=== PATIENT | female | born 1945 | race Two or more races ===

== ENCOUNTER → 2017-03-11 | Outpatient (CLI) | payer MEDICARE ==
[2016-08-31 08:19] VITALS: BP 107/87
[~2017-03-11] MED LIST: ALPR0.254 PO; AMAN100T PO; AMOX1TAB11 PO; BENZ0.5T PO; CELE200C PO; CIPR250T30 PO; DIVA250T PO; GABA-586 PO; GLIP5TAB10 PO; GLYB5TAB3 PO; HYDR-2666 PO; INSU100V13 SQ; LEVO88TA2 PO; LINA5TAB PO; LISI10TA2 PO; METF500T4 PO; MIRT15TA3 PO; NAPR500T3 PO; OFLO5DRO7 AS; PANT40TA5 PO; PIOG30TA20 PO; RISP1TAB3 PO; RISP2TAB3 PO; SITA100T PO; SUCR1TAB PO
[2017-03-11 17:19] LABS: VITAMIN-B12 929 pg/mL (247-911)
[2017-03-11 17:27] LABS: FOLATE > 24.00 ng/ml (3.2-20.0)
== END | disposition home or self-care (01) ==
LOC: LAB 11:09
PROVIDERS: ATTEND Psychiatry & Neurology Neurology with Special Qualifications in Child Neurology
DX: G91.2 (Idiopathic) normal pressure hydrocephalus (principal)
CPT/HCPCS: 36415; 82607; 82746; 84443; 85651

== ENCOUNTER → 2017-04-01 | Outpatient (CLI) | payer MEDICARE ==
[2016-08-31 08:19] VITALS: BP 107/87
[~2017-04-01] MED LIST changes: -LINA5TAB PO; +LINA5TAB4 PO
[2017-04-01 11:31] LABS: BASO % 0 % (0-3); EOS % 4 % (0-3); HEMATOCRIT 26.4 % (36.0-47.0); HEMOGLOBIN 8.8 g/dL (12.0-15.5); LYMPH # 1.8 x10^3/uL (1.0-4.8); LYMPH % 38 % (24-48); MEAN CORPUSCULAR HEMOGLOBIN 31 pg (25-35); MEAN CORPUSCULAR HGB CONC 34 g/dL (31-37); MEAN CORPUSCULAR VOLUME 92 fL (79-100); MONO % 5 % (0-9); NEUT % 52 % (31-73); PLATELET COUNT 173 x10^3/uL (140-400); RED BLOOD COUNT 2.88 x10^6/uL (3.50-5.40); RED CELL DISTRIBUTION WIDTH 15.9 % (11.5-14.5); WHITE BLOOD COUNT 4.7 x10^3/uL (4.0-11.0)
== END | disposition home or self-care (01) ==
LOC: LAB 11:00
PROVIDERS: ATTEND Psychiatry & Neurology Neurology with Special Qualifications in Child Neurology
DX: G91.2 (Idiopathic) normal pressure hydrocephalus (principal)
CPT/HCPCS: 36415; 85027

== ENCOUNTER 2017-08-06 12:10 | Inpatient (IN) | payer MEDICARE ==
[~2017-08-06] VITALS: Ht 154.9 cm; Wt 66.8 kg
[~2017-08-06 12:10] MED LIST changes: -HYDR-2666 PO; +HYDR-2758 PO; -PIOG30TA20 PO; +PIOG30TA41 PO
[2017-08-06] MEDS ORDERED: IV NORMAL SALINE 1000ML BAG 1,000 ML IV SCH (12:54)
[2017-08-06] MEDS ORDERED: LABETALOL 20 MG/4 ML DISP.SYRIN. IVP ONE (13:00)
[2017-08-06] MEDS ORDERED: FUROSEMIDE 20 MG/2 ML VIAL. IV ONE (13:00)
[2017-08-06] MEDS ORDERED: ASPIRIN CHEWABLE 81 MG TABLET. PO ONE (13:00)
--- NOTE | 2017-08-06 13:03 | PHYS DOC ---
Past Medical History Past Medical History: Arthritis, Bipolar, Diabetes-Type II, Hypertension Past Surgical History: Hysterectomy Alcohol Use: None Drug Use: None Adult General Chief Complaint Chief Complaint: CHEST PAIN HPI HPI Patient is a 72 year old female who presents with complaint of chest pain. Patient states that her symptoms started last night. Patient states that she was able to go to sleep, however when she woke up this morning at 10:00 AM she stated that the pain was much worse. Patient states that the pain felt like pressure that resided in the middle of her chest. The patient states currently she is not experiencing pain, however she is complaining of severe dyspnea on exertion. Patient also notes that she has been noting swelling in her lower extremities. The patient states that she takes Lasix and lisinopril at home and has not missed any doses. The patient states she had an appointment with Dr. Jeanette dutton at 1600, however after calling she was instructed to come to the emergency department for evaluation. Patient denies any fever. Patient has had nonproductive cough over the past week. Review of Systems Review of Systems Constitutional: Denies fever or chills [] Eyes: Denies change in visual acuity, redness, or eye pain [] HENT: Denies nasal congestion or sore throat [] Respiratory: Shortness of breath[] Cardiovascular: Chest pain, dyspnea on exertion, edema[] GI: Denies abdominal pain, nausea, vomiting, bloody stools or diarrhea [] : Denies dysuria or hematuria [] Musculoskeletal: Denies back pain or joint pain [] Integument: Denies rash or skin lesions [] Neurologic: Denies headache, focal weakness or sensory changes [] Current Medications Current Medications Current Medications Medications (Trade) Dose Ordered Sig/Angeles Start Time Stop Time Status Last Admin Dose Admin Aspirin (Children'S Aspirin) 324 mg 1X ONCE 08/06/17 13:00 08/06/17 13:01 DC 08/06/17 13:10 324 MG Furosemide (Lasix) 40 mg 1X ONCE 08/06/17 13:00 08/06/17 13:01 DC 08/06/17 13:10 40 MG Labetalol HCl (Normodyne) 20 mg 1X ONCE 08/06/17 13:00 08/06/17 13:01 DC 08/06/17 13:21 20 MG Sodium Chloride 1,000 ml @ 50 mls/hr Q20H 08/06/17 12:54 08/07/17 08:53 08/06/17 13:14 50 MLS/HR Allergies Allergies Allergies Coded Allergies Type Severity Reaction Last Updated Verified No Known Drug Allergies 08/06/17 No Physical Exam Physical Exam Constitutional: Alert, afebrile, appears in mild to moderate discomfort. [] HENT: Normocephalic, atraumatic, bilateral external ears normal, oropharynx moist, no oral exudates, nose normal. [] Eyes: PERRLA, EOMI, conjunctiva normal, no discharge. [] Neck: Normal range of motion, no tenderness, supple, no stridor. [] Cardiovascular:Heart rate regular rhythm, no murmur [] Lungs & Thorax: Mildly restricted air movement bilaterally, no wheezes, fine rales in the bilateral lung bases[] Abdomen: Bowel sounds normal, soft, no tenderness, no masses, no pulsatile masses. [] Skin: Warm, dry, no erythema, no rash. [] Back: No tenderness, no CVA tenderness. [] Extremities: No tenderness, no cyanosis, no clubbing, ROM intact, 2+ pitting edema in the bilateral lower extremities. [] Neurologic: Alert and oriented X 3, normal motor function, normal sensory function, no focal deficits noted. [] Current Patient Data Vital Signs Vital Signs Date Time Temp Pulse Resp B/P (MAP) Pulse Ox O2 Delivery O2 Flow Rate FiO2 08/06/17 13:21 70 215/85 08/06/17 12:20 99.2 32 93 Room Air 99.2 Lab Values Laboratory Tests Test 08/06/17 12:30 08/06/17 13:38 White Blood Count 7.2 x10^3/uL (4.0-11.0) Red Blood Count 2.46 x10^6/uL (3.50-5.40) L Hemoglobin 7.2 g/dL (12.0-15.5) L Hematocrit 21.6 % (36.0-47.0) L Mean Corpuscular Volume 88 fL (79-100) Mean Corpuscular Hemoglobin 29 pg (25-35) Mean Corpuscular Hemoglobin Concent 33 g/dL (31-37) Red Cell Distribution Width 16.2 % (11.5-14.5) H Platelet Count 210 x10^3/uL (140-400) Neutrophils (%) (Auto) 76 % (31-73) H Lymphocytes (%) (Auto) 16 % (24-48) L Monocytes (%) (Auto) 5 % (0-9) Eosinophils (%) (Auto) 2 % (0-3) Basophils (%) (Auto) 1 % (0-3) Neutrophils # (Auto) 5.5 x10^3uL (1.8-7.7) Lymphocytes # (Auto) 1.2 x10^3/uL (1.0-4.8) Monocytes # (Auto) 0.4 x10^3/uL (0.0-1.1) Eosinophils # (Auto) 0.1 x10^3/uL (0.0-0.7) Basophils # (Auto) 0.1 x10^3/uL (0.0-0.2) Prothrombin Time 13.3 SEC (11.7-14.0) Prothrombin Time INR 1.1 (0.8-1.1) Sodium Level 142 mmol/L (136-145) Potassium Level 4.4 mmol/L (3.5-5.1) Chloride Level 106 mmol/L (98-107) Carbon Dioxide Level 28 mmol/L (21-32) Anion Gap 8 (6-14) Blood Urea Nitrogen 39 mg/dL (7-20) H Creatinine 2.1 mg/dL (0.6-1.0) H Estimated GFR (Cockcroft-Gault) 23.3 Glucose Level 328 mg/dL (70-99) H Calcium Level 8.8 mg/dL (8.5-10.1) Magnesium Level 1.9 mg/dL (1.8-2.4) Total Bilirubin 0.5 mg/dL (0.2-1.0) Direct Bilirubin 0.1 mg/dL (0.0-0.2) Aspartate Amino Transferase (AST) 24 U/L (15-37) Alanine Aminotransferase (ALT) 38 U/L (14-59) Alkaline Phosphatase 207 U/L (46-116) H Creatine Kinase 273 U/L (26-192) H Creatine Kinase MB (Mass) 2.9 ng/mL (0.0-3.6) Creatine Kinase MB Relative Index 1.1 % (0-4) Troponin I Quantitative 0.036 ng/mL (0.000-0.055) TS-Kel-B-Type Natriuretic Peptide 77359 pg/mL (0-124) H Total Protein 6.8 g/dL (6.4-8.2) Albumin 3.3 g/dL (3.4-5.0) L Lipase 304 U/L (73-393) Urine Collection Type Unknown Urine Color Yellow Urine Clarity Clear Urine pH 6.5 Urine Specific Wilkinson <=1.005 Urine Protein 100 mg/dL (NEG-TRACE) Urine Glucose (UA) 250 mg/dL (NEG) Urine Ketones (Stick) Negative mg/dL (NEG) Urine Blood Trace (NEG) Urine Nitrite Negative (NEG) Urine Bilirubin Negative (NEG) Urine Urobilinogen Dipstick 0.2 mg/dL (0.2 mg/dL) Urine Leukocyte Esterase Negative (NEG) Urine RBC 3-5 /HPF (0-2) Urine WBC 1-4 /HPF (0-4) Urine Bacteria 0 /HPF (0-FEW) Laboratory Tests 08/06/17 12:30 Laboratory Tests 08/06/17 12:30 EKG EKG Interpreted by me: Heart rate 87, sinus rhythm, normal intervals, normal axis, no acute ST/T-wave abnormalities present[] Radiology/Procedures Radiology/Procedures [facility] [address] [place] [address] IMAGING REPORT Signed PATIENT: HECTOR GRESHAM ACCOUNT: [id number] : 1945 LOCATION: ER AGE: 72 SEX: F EXAM STATUS: REG ER ORD. PHYSICIAN: AMY OSCAR MD REASON: chest pain, shortness of breath PROCEDURE: PORTABLE CHEST 1V Indication chest pain. A single view of the chest was obtained. Comparison is made to an examination 08/27/2016. Heart size is slightly enlarged but unchanged. There are pulmonary infiltrates compatible with congestive heart failure. There are bilateral pleural effusions. A definite consolidated pneumonia is not seen. IMPRESSION: Mild cardiomegaly with changes of mild congestive heart failure and bilateral pleural effusions DICTATED and SIGNED BY: RUBEN LOYA MD DATE: 08/06/17 2804 CC: HOUSTON REID MD; AMY OSCAR MD ~ [] Course & Med Decision Making Course & Med Decision Making Pertinent Labs and Imaging studies reviewed. (See chart for details) HEART score is 7. The patient was given IV Lasix and IV labetalol. Patient also treated with oral aspirin due to chest pain. Patient's chest x-ray and blood work are consistent with acute on chronic congestive heart failure. The patient will be admitted to the hospital for further treatment and workup. I spoke with Dr. Paulino who accepted care patient in hospital. Dragon Disclaimer Dragon Disclaimer This electronic medical record was generated, in whole or in part, using a voice recognition dictation system. Departure Departure Impression: Primary Impression: Acute on chronic congestive heart failure Additional Impressions: Chest pain Malignant hypertension Acute renal failure Disposition: ADMITTED INPATIENT Admitting Physician: Houston Reid Condition: IMPROVED Referrals: HOUSTON REID MD (PCP) Problem Qualifiers Primary Impression: Acute on chronic congestive heart failure Congestive heart failure type: unspecified congestive heart failure type Qualified Codes: I50.9 - Heart failure, unspecified Additional Impressions: Chest pain Chest pain type: unspecified Qualified Codes: R07.9 - Chest pain, unspecified Acute renal failure Acute renal failure type: unspecified Qualified Codes: N17.9 - Acute kidney failure, unspecified AMY OSCAR MD Aug 06, 2017 13:03
[2017-08-06 13:05] LABS: BASO # 0.1 x10^3/uL (0.0-0.2); BASO % 1 % (0-3); EOS % 2 % (0-3); HEMATOCRIT 21.6 % (36.0-47.0); HEMOGLOBIN 7.2 g/dL (12.0-15.5); LYMPH # 1.2 x10^3/uL (1.0-4.8); LYMPH % 16 % (24-48); MEAN CORPUSCULAR HEMOGLOBIN 29 pg (25-35); MEAN CORPUSCULAR HGB CONC 33 g/dL (31-37); MEAN CORPUSCULAR VOLUME 88 fL (79-100); MONO % 5 % (0-9); NEUT % 76 % (31-73); PLATELET COUNT 210 x10^3/uL (140-400); RED BLOOD COUNT 2.46 x10^6/uL (3.50-5.40); RED CELL DISTRIBUTION WIDTH 16.2 % (11.5-14.5); WHITE BLOOD COUNT 7.2 x10^3/uL (4.0-11.0)
[2017-08-06 13:20] LABS: CALCIUM 8.8 mg/dL (8.5-10.1); CREATININE 2.1 mg/dL (0.6-1.0); GFR 23.3; POTASSIUM 4.4 mmol/L (3.5-5.1)
--- NOTE | 2017-08-06 13:21 | RAD ---
Indication chest pain. A single view of the chest was obtained. Comparison is made to an examination 08/27/2016. Heart size is slightly enlarged but unchanged. There are pulmonary infiltrates compatible with congestive heart failure. There are bilateral pleural effusions. A definite consolidated pneumonia is not seen. IMPRESSION: Mild cardiomegaly with changes of mild congestive heart failure and bilateral pleural effusions
[2017-08-06 13:23] LABS: INR 1.1 (0.8-1.1); PROTHROMBIN TIME PATIENT 13.3 SEC (11.7-14.0)
[2017-08-06 13:26] LABS: ALBUMIN 3.3 g/dL (3.4-5.0); DIRECT BILIRUBIN 0.1 mg/dL (0.0-0.2); MAGNESIUM 1.9 mg/dL (1.8-2.4); TOTAL BILIRUBIN 0.5 mg/dL (0.2-1.0); TOTAL PROTEIN 6.8 g/dL (6.4-8.2)
[2017-08-06 13:32] LABS: CKMB MASS 2.9 ng/mL (0.0-3.6)
[2017-08-06 13:50] LABS: BILIRUBIN,URINE NEGATIVE (NEG); GLUCOSE,URINE 250 mg/dL (NEG); NITRITE,URINE NEGATIVE (NEG); PH,URINE 6.5; PROTEIN,URINE 100 mg/dL (NEG-TRACE); UROBILINOGEN,URINE 0.2 mg/dL (0.2 mg/dL)
[2017-08-06 13:59] LABS: BACTERIA,URINE 0 /HPF (0-FEW)
[2017-08-06] MEDS ORDERED: LABETALOL 20 MG/4 ML DISP.SYRIN. IVP PRN (14:15)
[2017-08-06] MEDS ORDERED: ONDANSETRON PF 4 MG/2 ML VIAL. IV PRN (14:15)
[2017-08-06] MEDS ORDERED: GLIP5TAB10 PO (14:36)
[2017-08-06] MEDS ORDERED: MIRT15TA3 PO (14:38)
[2017-08-06] MEDS ORDERED: BUSP10TA PO (14:38)
[2017-08-06] MEDS ORDERED: FURO20TA3 PO (14:39)
[2017-08-06] MEDS ORDERED: INSU100V13 SQ (14:39)
[2017-08-06] MEDS ORDERED: LAMO100T PO (14:40)
[2017-08-06] MEDS ORDERED: MELA3TAB2 PO (14:41)
[2017-08-06] MEDS ORDERED: FERR-26 PO (14:42)
[2017-08-06] MEDS ORDERED: MULT1TAB52 PO (14:42)
--- NOTE | 2017-08-06 15:45 | PDOC2 ---
ANA MARÍA HOUSE PRODUCT DEVELOPMENT ASSISTANT 08/06/17 1545: CARDIAC CONSULT DATE OF CONSULT Date of Consult DATE: 08/06/17 TIME: 15:30 REASON FOR CONSULT Reason for Consult: CHF, CP REFERRING PHYSICIAN Referring Physician: Jonatan SOURCE Source: Chart review, Patient HISTORY OF PRESENT ILLNESS HISTORY OF PRESENT ILLNESS This is a pleasant 72 female admitted for complains of SOA and chest pressure. Reports that in the last 1-2 weeks she has been having nonproductive cough. She was treated with zithromax but did not get better. Initially her symptoms was cough then progressed to SOA then left chest pressure which is reproducible with palpation. In the last week she also has been having nausea but at the same time she has been having abdominal pain which is worse with palpation throughout more so to the epigastric region. Also noted with increased leg swelling. Reports of being weak and sometimes dizziness. Her BP has been uncontrolled lately. She has been adequately hydrated in the last week telling me that she drank 4 medium size water bottles in the last 24 hours. Denies any palpitations or wheezing. Denies any vomiting, or black stools. PAST MEDICAL HISTORY Past Medical History Cardiovascular: HTN Pulmonary: No pertinent hx CENTRAL NERVOUS SYSTEM: Peripheral neuropathy GI: GERD, Peptic Ulcer disease Heme/Onc: anemia Hepatobiliary: No pertinent hx Psych: Bipolar disorder Musculoskeletal: Osteoarthritis, multiple falls Rheumatologic: No pertinent hx Infectious disease: No pertinent hx ENT: No pertinent hx Renal/: CKD3, hyponatremia, UTI Endocrine: Diabetes, hypothyroidism Dermatology: No pertinent history PAST SURGICAL HISTORY Past Surgical History: Hysterectomy, Other (01/23/2015 EGD multiple /DU) FAMILY HISTORY Family History: Alzheimer's Disease SOCIAL HISTORY Smoke: No ALCOHOL: none Drugs: None CURRENT MEDICATIONS CURRENT MEDICATIONS Current Medications Medications (Trade) Dose Ordered Sig/Angeles Route PRN Reason Start Time Stop Time Status Last Admin Dose Admin Aspirin (Children'S Aspirin) 324 mg 1X ONCE PO 08/06/17 13:00 08/06/17 13:01 DC 08/06/17 13:10 Furosemide (Lasix) 40 mg 1X ONCE IV 08/06/17 13:00 08/06/17 13:01 DC 08/06/17 13:10 Sodium Chloride 1,000 ml @ 50 mls/hr Q20H IV 08/06/17 12:54 08/07/17 08:53 08/06/17 13:14 Labetalol HCl (Normodyne) 20 mg 1X ONCE IVP 08/06/17 13:00 08/06/17 13:01 DC 08/06/17 13:21 ALLERGIES ALLERGIES: Coded Allergies: No Known Drug Allergies (Unverified , 08/06/17) ROS Review of System 14 point ROS evaluated with pertinent positives noted per HPI PHYSICAL EXAM General: Alert, Oriented X3, Cooperative, No acute distress HEENT: Atraumatic, Mucous membr. moist/pink Lungs: Other (basilar crackles) Heart: Regular rate, Normal S1, Normal S2, Other (3/6 systolic murmur to TIA border) Abdomen: Soft, Other (diffuse tenderness more so to epigasteric and RLQ) Extremities: No cyanosis, Other (2=3+ bilateral LE pitting edema) Skin: No breakdown, No significant lesion Neuro: Normal speech, Sensation intact Psych/Mental Status: Mental status NL, Mood NL MUSCULOSKELETAL: Osteoarthritic changes both hands VITALS VITALS Vital Signs Date Time Temp Pulse Resp B/P (MAP) Pulse Ox O2 Delivery O2 Flow Rate FiO2 08/06/17 15:09 65 26 146/65 (92) 95 Room Air 08/06/17 12:20 99.2 99.2 LABS Lab: Laboratory Tests Test 08/06/17 12:30 08/06/17 13:38 White Blood Count 7.2 x10^3/uL (4.0-11.0) Red Blood Count 2.46 x10^6/uL (3.50-5.40) Hemoglobin 7.2 g/dL (12.0-15.5) Hematocrit 21.6 % (36.0-47.0) Mean Corpuscular Volume 88 fL (79-100) Mean Corpuscular Hemoglobin 29 pg (25-35) Mean Corpuscular Hemoglobin Concent 33 g/dL (31-37) Red Cell Distribution Width 16.2 % (11.5-14.5) Platelet Count 210 x10^3/uL (140-400) Neutrophils (%) (Auto) 76 % (31-73) Lymphocytes (%) (Auto) 16 % (24-48) Monocytes (%) (Auto) 5 % (0-9) Eosinophils (%) (Auto) 2 % (0-3) Basophils (%) (Auto) 1 % (0-3) Neutrophils # (Auto) 5.5 x10^3uL (1.8-7.7) Lymphocytes # (Auto) 1.2 x10^3/uL (1.0-4.8) Monocytes # (Auto) 0.4 x10^3/uL (0.0-1.1) Eosinophils # (Auto) 0.1 x10^3/uL (0.0-0.7) Basophils # (Auto) 0.1 x10^3/uL (0.0-0.2) Prothrombin Time 13.3 SEC (11.7-14.0) Prothromb Time International Ratio 1.1 (0.8-1.1) Sodium Level 142 mmol/L (136-145) Potassium Level 4.4 mmol/L (3.5-5.1) Chloride Level 106 mmol/L (98-107) Carbon Dioxide Level 28 mmol/L (21-32) Anion Gap 8 (6-14) Blood Urea Nitrogen 39 mg/dL (7-20) Creatinine 2.1 mg/dL (0.6-1.0) Estimated GFR (Cockcroft-Gault) 23.3 Glucose Level 328 mg/dL (70-99) Calcium Level 8.8 mg/dL (8.5-10.1) Magnesium Level 1.9 mg/dL (1.8-2.4) Total Bilirubin 0.5 mg/dL (0.2-1.0) Direct Bilirubin 0.1 mg/dL (0.0-0.2) Aspartate Amino Transf (AST/SGOT) 24 U/L (15-37) Alanine Aminotransferase (ALT/SGPT) 38 U/L (14-59) Alkaline Phosphatase 207 U/L (46-116) Creatine Kinase 273 U/L (26-192) Creatine Kinase MB (Mass) 2.9 ng/mL (0.0-3.6) Creatine Kinase MB Relative Index 1.1 % (0-4) Troponin I Quantitative 0.036 ng/mL (0.000-0.055) CI-Nly-I-Type Natriuretic Peptide 83968 pg/mL (0-124) Total Protein 6.8 g/dL (6.4-8.2) Albumin 3.3 g/dL (3.4-5.0) Lipase 304 U/L (73-393) Urine Collection Type Unknown Urine Color Yellow Urine Clarity Clear Urine pH 6.5 Urine Specific Brewster <=1.005 Urine Protein 100 mg/dL (NEG-TRACE) Urine Glucose (UA) 250 mg/dL (NEG) Urine Ketones (Stick) Negative mg/dL (NEG) Urine Blood Trace (NEG) Urine Nitrite Negative (NEG) Urine Bilirubin Negative (NEG) Urine Urobilinogen Dipstick 0.2 mg/dL (0.2 mg/dL) Urine Leukocyte Esterase Negative (NEG) Urine RBC 3-5 /HPF (0-2) Urine WBC 1-4 /HPF (0-4) Urine Bacteria 0 /HPF (0-FEW) ECHOCARDIOGRAM ECHOCARDIOGRAM <Conclusion> The left ventricle is normal size. The left ventricular systolic function is normal and the ejection fraction is within normal range. The Ejection Fraction is 60-65%. The aortic valve is mildly calcified. There is mild aortic valve stenosis with a calculated aortic valve area is 2.0 cm2. Doppler and Color Flow revealed no significant aortic regurgitation. Doppler and Color Flow revealed trace to mild mitral regurgitation. Doppler and Color Flow revealed mild tricuspid regurgitation. The PA pressure was estimated at 34 mmHg. DATE: 05/15/16 1352 STRESS TEST STRESS TEST Conclusion 1. Normal EKG response to vasodilator stress. 2. Normal myocardial perfusion at stress/rest 3. Normal EF with stress. 4. low risk study DATE: 05/15/16 1317 ASSESSMENT/PLAN ASSESSMENT/PLAN 1. Atypical CP: reproducible with palpation. Troponin series normal, EKG SR without acute changes. Noncardiac. MSK related to cough. 2. Acute diastolic CHF: likely mainly due to uncontrolled HTN accentuated by anemia. 3. Accelerated HTN 4. Abdominal pain with hx of PUD: Much more on epigastric region and RLQ. EGD 2014 with multiple DU/. Defer to PCP 5. Anemia: appears to be baseline Hgb in the 9s. Possible GI bleed. Hgb 7.2 6. Hypothyroidism 7. JADE on CKD3: likely prerenal with CHF. Defer to PCP. 8. DM2: no home episodes of hypoglycemia. Present BG 328. Per PCP Recommendations 1. Good UOP 850 ml with initial IV lasix. Continue lasix therapy. No IVF, maintain po hydration 2. Hold celebrex and lisinopril. 3. GI consult if OK with PCP 4. Labetolol IV PRN. Start on norvasc and PPI 5. Obtain TTE 6. Blood transfusion per PCP. 7. lipid panel, TSH. BMP, Mg in AM. Problems: FLORI DOMINGO MD 08/06/17 1715: CARDIAC CONSULT ALLERGIES ALLERGIES: Coded Allergies: No Known Drug Allergies (Unverified , 08/06/17) ASSESSMENT/PLAN ASSESSMENT/PLAN Patient seen and examined. Agree with DIRECTOR OF GUIDANCE's assessment and plan. Chest pain atypical, reproducible to palpation and most probably musculoskeletal Continue gentle diuresis for acute on chronic diastolic heart failure Titrate antihypertensives for better blood pressure control Check 2-D echo to assess LV systolic function Continue workup for anemia per IM Thank you for your consultation Problems: ANA MARÍA HOUSE APRN Aug 06, 2017 15:45 FLORI DOMINGO MD Aug 06, 2017 17:15
--- NOTE | 2017-08-06 16:27 | EKG ---
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
[2017-08-06 16:47] VITALS: BP 158/77
[2017-08-06] MEDS ORDERED: PANTOPRAZOLE 40 MG TABLET.DR. PO SCH (17:30)
[2017-08-06] MEDS: PANTOPRAZOLE 40 MG TABLET.DR. PO SCH (17:36)
[2017-08-06] MEDS: glipiZIDE 5 MG TABLET PO SCH (17:36)
[2017-08-06] MEDS: amLODIPine BESYLATE 10 MG TABLET PO SCH (17:37)
[2017-08-06 19:40] VITALS: BP 171/75
[2017-08-06] MEDS: busPIRone 10 MG TABLET. PO SCH (21:22)
[2017-08-06] MEDS: MIRTAZAPINE 7.5 MG TABLET. PO SCH (21:22)
[2017-08-06] MEDS: INSULIN DETEMIR 300 UNITS/3 ML INSULN.PEN. SQ SCH (21:25)
[2017-08-06 22:46] VITALS: BP 130/61
[2017-08-07] VITALS (14 sets, daily range): BP systolic 137–173; BP diastolic 40–76
[2017-08-07 05:17] LABS: BASO % 1 % (0-3); EOS % 3 % (0-3); LYMPH # 1.5 x10^3/uL (1.0-4.8); LYMPH % 24 % (24-48); MEAN CORPUSCULAR HEMOGLOBIN 30 pg (25-35); MEAN CORPUSCULAR HGB CONC 34 g/dL (31-37); MEAN CORPUSCULAR VOLUME 86 fL (79-100); MONO % 6 % (0-9); NEUT % 66 % (31-73); PLATELET COUNT 190 x10^3/uL (140-400); RED BLOOD COUNT 2.14 x10^6/uL (3.50-5.40); RED CELL DISTRIBUTION WIDTH 16.2 % (11.5-14.5); WHITE BLOOD COUNT 6.2 x10^3/uL (4.0-11.0)
[2017-08-07 05:19] LABS: HEMATOCRIT 18.3 % (36.0-47.0); HEMOGLOBIN 6.3 g/dL (12.0-15.5)
[2017-08-07 05:30] LABS: CALCIUM 8.3 mg/dL (8.5-10.1); CREATININE 2.1 mg/dL (0.6-1.0); GFR 23.3; MAGNESIUM 1.8 mg/dL (1.8-2.4); POTASSIUM 4.1 mmol/L (3.5-5.1)
[2017-08-07 05:32] LABS: CHOLESTEROL/HDL RATIO 3.1
[2017-08-07] MEDS: LEVOTHYROXINE 88 MCG TABLET PO SCH (06:24)
[2017-08-07] MEDS: PANTOPRAZOLE 40 MG TABLET.DR. PO SCH ×2 (08:17→17:29)
[2017-08-07] MEDS: busPIRone 10 MG TABLET. PO SCH ×2 (08:17→20:29)
[2017-08-07] MEDS: FERROUS SULFATE 325 MG TABLET. PO SCH (08:17)
[2017-08-07] MEDS: MULTIVITAMIN with MINERAL TABLET. PO SCH (08:17)
[2017-08-07] MEDS: lamoTRIgine 100 MG TABLET. PO SCH (08:17)
[2017-08-07] MEDS: amLODIPine BESYLATE 10 MG TABLET PO SCH (08:18)
[2017-08-07] MEDS: glipiZIDE 5 MG TABLET PO SCH ×2 (08:18→17:28)
--- NOTE | 2017-08-07 09:52 | PDOC ---
Provider Note Provider Note [id number] KARYN SMITH MD Aug 07, 2017 09:51
--- NOTE | 2017-08-07 10:25 | PDOC ---
PROGRESS NOTES Subjective Subjective Feeling better today. Chest pain resolved. Dyspnea improved. Objective Objective Vital Signs Date Time Temp Pulse Resp B/P (MAP) Pulse Ox O2 Delivery O2 Flow Rate FiO2 08/07/17 10:09 98.2 64 20 158/69 98.2 08/07/17 07:35 Room Air 08/07/17 07:00 92 Intake and Output 08/08/17 07:00 Intake Total 350 ml Balance 350 ml Blood Product IV Normal Saline Flush 350 ml Physical Exam Abdomen: Soft, Other (diffuse tenderness more so to epigasteric and RLQ) Heart: Regular rate, Normal S1, Normal S2, Other (3/6 systolic murmur to TIA border) Extremities: No cyanosis, Other (2=3+ bilateral LE pitting edema) General: Alert, Oriented X3, Cooperative, No acute distress HEENT: Atraumatic, Mucous membr. moist/pink Lungs: Other (basilar crackles) Neuro: Normal speech, Sensation intact Psych/Mental Status: Mental status NL, Mood NL Skin: No breakdown, No significant lesion Assessment Assessment 1. Atypical CP: reproducible with palpation and most probably musculoskeletal. Myocardial infarction ruled out. Check 2-D echo to assess LV function and rule out wall motion abnormalities. 2. Acute on chronic diastolic CHF: Most probably from a combination of uncontrolled hypertension and anemia. Symptoms improving with diuresis. 3. Accelerated HTN: Better controlled since admission. 4. Abdominal pain, and anemia with hx of PUD: Defer to PCP 5. DM2: Per PCP Plan Plan of Care Problems Medical Problems: (1) Acute on chronic congestive heart failure Status: Acute (2) Acute renal failure Status: Acute (3) Chest pain Status: Acute (4) Malignant hypertension Status: Acute Comment Review of Relevant I have reviewed the following items connie (where applicable) has been applied. Labs Laboratory Tests Test 08/06/17 12:30 08/06/17 13:38 08/06/17 16:00 08/06/17 19:40 White Blood Count 7.2 x10^3/uL (4.0-11.0) Red Blood Count 2.46 x10^6/uL (3.50-5.40) Hemoglobin 7.2 g/dL (12.0-15.5) Hematocrit 21.6 % (36.0-47.0) Mean Corpuscular Volume 88 fL (79-100) Mean Corpuscular Hemoglobin 29 pg (25-35) Mean Corpuscular Hemoglobin Concent 33 g/dL (31-37) Red Cell Distribution Width 16.2 % (11.5-14.5) Platelet Count 210 x10^3/uL (140-400) Neutrophils (%) (Auto) 76 % (31-73) Lymphocytes (%) (Auto) 16 % (24-48) Monocytes (%) (Auto) 5 % (0-9) Eosinophils (%) (Auto) 2 % (0-3) Basophils (%) (Auto) 1 % (0-3) Neutrophils # (Auto) 5.5 x10^3uL (1.8-7.7) Lymphocytes # (Auto) 1.2 x10^3/uL (1.0-4.8) Monocytes # (Auto) 0.4 x10^3/uL (0.0-1.1) Eosinophils # (Auto) 0.1 x10^3/uL (0.0-0.7) Basophils # (Auto) 0.1 x10^3/uL (0.0-0.2) Prothrombin Time 13.3 SEC (11.7-14.0) Prothromb Time International Ratio 1.1 (0.8-1.1) Sodium Level 142 mmol/L (136-145) Potassium Level 4.4 mmol/L (3.5-5.1) Chloride Level 106 mmol/L (98-107) Carbon Dioxide Level 28 mmol/L (21-32) Anion Gap 8 (6-14) Blood Urea Nitrogen 39 mg/dL (7-20) Creatinine 2.1 mg/dL (0.6-1.0) Estimated GFR (Cockcroft-Gault) 23.3 Glucose Level 328 mg/dL (70-99) Calcium Level 8.8 mg/dL (8.5-10.1) Magnesium Level 1.9 mg/dL (1.8-2.4) Total Bilirubin 0.5 mg/dL (0.2-1.0) Direct Bilirubin 0.1 mg/dL (0.0-0.2) Aspartate Amino Transf (AST/SGOT) 24 U/L (15-37) Alanine Aminotransferase (ALT/SGPT) 38 U/L (14-59) Alkaline Phosphatase 207 U/L (46-116) Creatine Kinase 273 U/L (26-192) Creatine Kinase MB (Mass) 2.9 ng/mL (0.0-3.6) Creatine Kinase MB Relative Index 1.1 % (0-4) Troponin I Quantitative 0.036 ng/mL (0.000-0.055) 0.018 ng/mL (0.000-0.055) 0.020 ng/mL (0.000-0.055) WI-Big-J-Type Natriuretic Peptide 88527 pg/mL (0-124) Total Protein 6.8 g/dL (6.4-8.2) Albumin 3.3 g/dL (3.4-5.0) Lipase 304 U/L (73-393) Thyroid Stimulating Hormone (TSH) 2.741 uIU/mL (0.358-3.74) Urine Collection Type Unknown Urine Color Yellow Urine Clarity Clear Urine pH 6.5 Urine Specific [place] <=1.005 Urine Protein 100 mg/dL (NEG-TRACE) Urine Glucose (UA) 250 mg/dL (NEG) Urine Ketones (Stick) Negative mg/dL (NEG) Urine Blood Trace (NEG) Urine Nitrite Negative (NEG) Urine Bilirubin Negative (NEG) Urine Urobilinogen Dipstick 0.2 mg/dL (0.2 mg/dL) Urine Leukocyte Esterase Negative (NEG) Urine RBC 3-5 /HPF (0-2) Urine WBC 1-4 /HPF (0-4) Urine Bacteria 0 /HPF (0-FEW) Test 08/06/17 21:21 08/07/17 04:22 08/07/17 07:49 Glucose (Fingerstick) 360 mg/dL (70-99) 104 mg/dL (70-99) White Blood Count 6.2 x10^3/uL (4.0-11.0) Red Blood Count 2.14 x10^6/uL (3.50-5.40) Hemoglobin 6.3 g/dL (12.0-15.5) Hematocrit 18.3 % (36.0-47.0) Mean Corpuscular Volume 86 fL (79-100) Mean Corpuscular Hemoglobin 30 pg (25-35) Mean Corpuscular Hemoglobin Concent 34 g/dL (31-37) Red Cell Distribution Width 16.2 % (11.5-14.5) Platelet Count 190 x10^3/uL (140-400) Neutrophils (%) (Auto) 66 % (31-73) Lymphocytes (%) (Auto) 24 % (24-48) Monocytes (%) (Auto) 6 % (0-9) Eosinophils (%) (Auto) 3 % (0-3) Basophils (%) (Auto) 1 % (0-3) Neutrophils # (Auto) 4.1 x10^3uL (1.8-7.7) Lymphocytes # (Auto) 1.5 x10^3/uL (1.0-4.8) Monocytes # (Auto) 0.4 x10^3/uL (0.0-1.1) Eosinophils # (Auto) 0.2 x10^3/uL (0.0-0.7) Basophils # (Auto) 0.0 x10^3/uL (0.0-0.2) Sodium Level 142 mmol/L (136-145) Potassium Level 4.1 mmol/L (3.5-5.1) Chloride Level 106 mmol/L (98-107) Carbon Dioxide Level 28 mmol/L (21-32) Anion Gap 8 (6-14) Blood Urea Nitrogen 44 mg/dL (7-20) Creatinine 2.1 mg/dL (0.6-1.0) Estimated GFR (Cockcroft-Gault) 23.3 Glucose Level 227 mg/dL (70-99) Calcium Level 8.3 mg/dL (8.5-10.1) Magnesium Level 1.8 mg/dL (1.8-2.4) Triglycerides Level 53 mg/dL (0-150) Cholesterol Level 118 mg/dL (0-200) LDL Cholesterol, Calculated 69 mg/dL (0-100) VLDL Cholesterol, Calculated 11 mg/dL (0-40) Non-HDL Cholesterol Calculated 80 mg/dL (0-129) HDL Cholesterol 38 mg/dL (40-60) Cholesterol/HDL Ratio 3.1 Medications Current Medications Amlodipine Besylate (Norvasc) 10 mg DAILY PO Last administered on 08/07/17 08: 18; Start 08/06/17 at 17:00 Aspirin (Children'S Aspirin) 324 mg 1X ONCE PO Last administered on 08/06/17 13:10; Start 08/06/17 at 13:00; Stop 08/06/17 at 13:01; Status DC Buspirone HCl (Buspar) 10 mg BID PO Last administered on 08/07/17 08:17; Start 08/06/17 at 21:00 Ferrous Sulfate (Feosol) 325 mg DAILY PO Last administered on 08/07/17 08:17; Start 08/07/17 at 09:00 Furosemide (Lasix) 40 mg 1X ONCE IV Last administered on 08/06/17 13:10; Start 08/06/17 at 13:00; Stop 08/06/17 at 13:01; Status DC Furosemide (Lasix) 40 mg BID92 IVP ; Start 08/07/17 at 09:00 Glipizide (Glucotrol) 5 mg BIDBFRMEAL PO Last administered on 08/07/17 08:18; Start 08/06/17 at 18:00 Insulin Detemir (Levemir) 10 units QHS SQ Last administered on 08/06/17 21:25 ; Start 08/06/17 at 21:00 Labetalol HCl (Normodyne) 20 mg 1X ONCE IVP Last administered on 08/06/17 13: 21; Start 08/06/17 at 13:00; Stop 08/06/17 at 13:01; Status DC Labetalol HCl (Normodyne) 20 mg PRN Q2HR PRN IVP HYPERTENSION, SEE COMMENTS; Start 08/06/17 at 14:15 Lamotrigine (LaMICtal) 100 mg DAILY PO Last administered on 08/07/17 08:17; Start 08/07/17 at 09:00 Levothyroxine Sodium (Synthroid) 88 mcg DAILY07 PO Last administered on 06:24; Start 08/07/17 at 07:00 Mirtazapine (Remeron) 7.5 mg QHS PO Last administered on 08/06/17 21:22; Start 08/06/17 at 21:00 Multivitamins (Thera M Plus) 1 tab DAILY PO Last administered on 08/07/17 08: 17; Start 08/07/17 at 09:00 Ondansetron HCl (Zofran) 4 mg PRN Q8HRS PRN IV NAUSEA/VOMITING; Start 08/06/17 at 14:15; Stop 08/07/17 at 14:14 Pantoprazole Sodium (Protonix) 40 mg BIDAC PO Last administered on 08/07/17 08 :17; Start 08/06/17 at 18:00 Pantoprazole Sodium (Protonix) 40 mg DAILYAC PO ; Start 08/06/17 at 17:30; Status Cancel Sodium Chloride 1,000 ml @ 50 mls/hr Q20H IV Last administered on 08/06/17 13 :14; Start 08/06/17 at 12:54; Stop 08/06/17 at 16:20; Status DC Vitals/I & O Vital Sign - Last 24 Hours 08/06/17 08/06/17 08/06/17 08/06/17 12:20 13:07 13:21 13:47 Temp 99.2 99.2 Pulse 86 70 70 60 Resp 32 28 31 B/P (MAP) 209/93 (131) 205/82 (123) 215/85 172/74 (106) Pulse Ox 93 94 95 O2 Delivery Room Air Room Air Room Air 08/06/17 08/06/17 08/06/17 08/06/17 14:11 15:09 16:02 16:47 Temp 98.1 98.1 Pulse 62 65 68 Resp 18 26 20 B/P (MAP) 192/80 (117) 146/65 (92) 158/77 (104) Pulse Ox 95 95 94 O2 Delivery Room Air Room Air Room Air Room Air 08/06/17 08/06/17 08/06/17 08/06/17 17:37 19:30 19:40 22:46 Temp 97.6 97.6 Pulse 68 65 70 Resp 28 B/P (MAP) 158/77 171/75 (107) 130/61 (84) Pulse Ox 95 94 O2 Delivery Room Air Room Air Room Air 08/07/17 08/07/17 08/07/17 08/07/17 03:30 07:00 07:35 08:18 Temp 98.3 97.9 98.3 97.9 Pulse 62 65 68 Resp 54 18 B/P (MAP) 157/70 (99) 148/63 (91) 148/63 Pulse Ox 97 92 O2 Delivery Room Air Room Air Room Air 08/07/17 08/07/17 09:54 10:09 Temp 97.7 98.2 97.7 98.2 Pulse 65 64 Resp 18 20 B/P (MAP) 147/63 158/69 Intake and Output 08/07/17 08/07/17 08/08/17 15:00 23:00 07:00 Intake Total 350 ml Balance 350 ml FLORI DOMINGO MD Aug 07, 2017 10:25
--- NOTE | 2017-08-07 10:49 | HP ---
ADMIT DATE: CHIEF COMPLAINT: Epigastric pain and weakness. HISTORY OF PRESENT ILLNESS: A 72-year-old female patient of Dr. Dave has a history of mild anemia, but came in with increasing weakness, fatigue and some epigastric pain and mild shortness of breath. She was found to have a hemoglobin of 7 and rest of her laboratory studies were normal. She has some degree of renal dysfunction that was not present about a year ago when last labs were done as well. She denies any history of endoscopy and denies melena, hematochezia, dysphagia, or any symptoms of GI bleeding. PAST MEDICAL HISTORY: No previous cardiac or pulmonary history. MEDICATIONS: Listed per the chart. She is insulin-dependent diabetic, control unknown. ALLERGIES: No allergies are known. SOCIAL HISTORY: Unremarkable. Nondrinker, nonsmoker. FAMILY HISTORY: Unremarkable. REVIEW OF SYSTEMS: Denies melena, hematochezia or other GI symptoms. OBJECTIVE: ENT: Moderate pallor, otherwise unremarkable. NECK: No carotid bruits, nodes or thyroid enlargement. LUNGS: Clear. CARDIOVASCULAR: Regular rate. No irregular beat. She has a grade 2 systolic flow murmur. ABDOMEN: Soft, benign and nontender. EXTREMITIES: Nailbeds are pale, 2+ ankle edema. No joint or skin lesions otherwise seen. NEUROLOGIC: Physiologic. ASSESSMENT: Severe anemia, duration and etiology undetermined. I think this is contributing to her weakness and systolic murmur and maybe to the mild congestive failure. She also has type 2 diabetes mellitus and some degree of renal dysfunction that may be from hypoperfusion. PLAN: Hold BP meds for now, transfuse 2 units. GI consultation for consideration of at least upper endoscopy and probably panendoscopy. KARYN SMITH MD DR: VÍCTOR/arlette JOB#: [id number] / [id number]
[2017-08-07] MEDS: FUROSEMIDE 40 MG/4 ML VIAL. IVP SCH ×2 (12:13→18:20)
--- NOTE | 2017-08-07 14:03 | PDOC2 ---
GI CONSULT Date Date/Time DATE: 08/07/17 TIME: 13:56 Providers Attending Physician Adán Reid MD Referring Physician Consulting Physician Dr. Sanchez History of Present Illness HPI 72 WF with weakness, mild nausea- denies melena, abd pain, rectal bleeding. Some mild perip edema, Does have history of peptic ulcers 2014- had EGD with Dr. Arredondo at that time- took meds for awhile and felt better. Recalls colonoscopy before that as outpt- We dont have those records History Past Medical History gastric and duod ulcers 2014 HTN DM Past Surgical History Hysterectomy Past Surgical History: Hysterectomy, Other (01/23/2015 EGD multiple /DU) Social/Personal History no smoking or drinking history Review of Systems Constitutional: yes: malaise, weakness Gastrointestinal: Yes: nausea Allergies Allergies Allergies Coded Allergies Type Severity Reaction Last Updated Verified No Known Drug Allergies 08/06/17 No Medications Medications Current Medications Aspirin (Children'S Aspirin) 324 mg 1X ONCE PO Last administered on 08/06/17 13:10; Start 08/06/17 at 13:00; Stop 08/06/17 at 13:01; Status DC Furosemide (Lasix) 40 mg 1X ONCE IV Last administered on 08/06/17 13:10; Start 08/06/17 at 13:00; Stop 08/06/17 at 13:01; Status DC Sodium Chloride 1,000 ml @ 50 mls/hr Q20H IV Last administered on 08/06/17 13 :14; Start 08/06/17 at 12:54; Stop 08/06/17 at 16:20; Status DC Labetalol HCl (Normodyne) 20 mg 1X ONCE IVP Last administered on 08/06/17 13: 21; Start 08/06/17 at 13:00; Stop 08/06/17 at 13:01; Status DC Ondansetron HCl (Zofran) 4 mg PRN Q8HRS PRN IV NAUSEA/VOMITING; Start 08/06/17 at 14:15; Stop 08/07/17 at 14:14 Labetalol HCl (Normodyne) 20 mg PRN Q2HR PRN IVP HYPERTENSION, SEE COMMENTS; Start 08/06/17 at 14:15 Furosemide (Lasix) 40 mg BID92 IVP Last administered on 08/07/17 12:13; Start 08/07/17 at 09:00 Amlodipine Besylate (Norvasc) 10 mg DAILY PO Last administered on 08/07/17 08: 18; Start 08/06/17 at 17:00 Pantoprazole Sodium (Protonix) 40 mg DAILYAC PO ; Start 08/06/17 at 17:30; Status Cancel Buspirone HCl (Buspar) 10 mg BID PO Last administered on 08/07/17 08:17; Start 08/06/17 at 21:00 Ferrous Sulfate (Feosol) 325 mg DAILY PO Last administered on 08/07/17 08:17; Start 08/07/17 at 09:00 Glipizide (Glucotrol) 5 mg BIDBFRMEAL PO Last administered on 08/07/17 08:18; Start 08/06/17 at 18:00 Lamotrigine (LaMICtal) 100 mg DAILY PO Last administered on 08/07/17 08:17; Start 08/07/17 at 09:00 Levothyroxine Sodium (Synthroid) 88 mcg DAILY07 PO Last administered on 06:24; Start 08/07/17 at 07:00 Mirtazapine (Remeron) 7.5 mg QHS PO Last administered on 08/06/17 21:22; Start 08/06/17 at 21:00 Pantoprazole Sodium (Protonix) 40 mg BIDAC PO Last administered on 08/07/17 08 :17; Start 08/06/17 at 18:00 Insulin Detemir (Levemir) 10 units QHS SQ Last administered on 08/06/17 21:25 ; Start 08/06/17 at 21:00 Multivitamins (Thera M Plus) 1 tab DAILY PO Last administered on 08/07/17 08: 17; Start 08/07/17 at 09:00 Active Scripts Active Synthroid (Levothyroxine Sodium) 88 Mcg Tablet 88 Mcg PO DAILY07 Reported Multivitamins (Multivitamin) 1 Each Tablet 1 Tab PO DAILY Ferrous Sulfate 325 Mg Tablet 325 Mg PO DAILY Melatonin 3 Mg Tablet 3 Mg PO QHS PRN Lamotrigine 100 Mg Tablet 100 Mg PO DAILY Levemir (Insulin Detemir) 100 Unit/1 Ml Vial 10 Unit SQ QHS Furosemide 20 Mg Tablet 20 Mg PO DAILY Buspirone Hcl 10 Mg Tablet 10 Mg PO BID Mirtazapine 15 Mg Tablet 7.5 Mg PO QHS Glipizide 5 Mg Tablet 5 Mg PO BID Celebrex (Celecoxib) 200 Mg Capsule 1 Cap PO QHS Hydrocodone-Apap 5-325 (Hydrocodone Bit/Acetaminophen) 1 Each Tablet 1 Tab PO PRN Q6HRS PRN Pantoprazole Sodium 40 Mg Tablet.dr 1 Tab PO BID Lisinopril 10 Mg Tablet 1 Tab PO DAILY Physical Exam Physical Exam VSS pale chest- clear Cor- RRR abd- soft non tender good bowel sounds, no mass extrem- trace edema neuro- alert, non focal Labs Labs Laboratory Tests Test 08/06/17 16:00 08/06/17 19:40 08/06/17 21:21 08/07/17 04:22 Troponin I Quantitative 0.018 ng/mL (0.000-0.055) 0.020 ng/mL (0.000-0.055) Glucose (Fingerstick) 360 mg/dL (70-99) White Blood Count 6.2 x10^3/uL (4.0-11.0) Red Blood Count 2.14 x10^6/uL (3.50-5.40) Hemoglobin 6.3 g/dL (12.0-15.5) Hematocrit 18.3 % (36.0-47.0) Mean Corpuscular Volume 86 fL (79-100) Mean Corpuscular Hemoglobin 30 pg (25-35) Mean Corpuscular Hemoglobin Concent 34 g/dL (31-37) Red Cell Distribution Width 16.2 % (11.5-14.5) Platelet Count 190 x10^3/uL (140-400) Neutrophils (%) (Auto) 66 % (31-73) Lymphocytes (%) (Auto) 24 % (24-48) Monocytes (%) (Auto) 6 % (0-9) Eosinophils (%) (Auto) 3 % (0-3) Basophils (%) (Auto) 1 % (0-3) Neutrophils # (Auto) 4.1 x10^3uL (1.8-7.7) Lymphocytes # (Auto) 1.5 x10^3/uL (1.0-4.8) Monocytes # (Auto) 0.4 x10^3/uL (0.0-1.1) Eosinophils # (Auto) 0.2 x10^3/uL (0.0-0.7) Basophils # (Auto) 0.0 x10^3/uL (0.0-0.2) Sodium Level 142 mmol/L (136-145) Potassium Level 4.1 mmol/L (3.5-5.1) Chloride Level 106 mmol/L (98-107) Carbon Dioxide Level 28 mmol/L (21-32) Anion Gap 8 (6-14) Blood Urea Nitrogen 44 mg/dL (7-20) Creatinine 2.1 mg/dL (0.6-1.0) Estimated GFR (Cockcroft-Gault) 23.3 Glucose Level 227 mg/dL (70-99) Calcium Level 8.3 mg/dL (8.5-10.1) Magnesium Level 1.8 mg/dL (1.8-2.4) Triglycerides Level 53 mg/dL (0-150) Cholesterol Level 118 mg/dL (0-200) LDL Cholesterol, Calculated 69 mg/dL (0-100) VLDL Cholesterol, Calculated 11 mg/dL (0-40) Non-HDL Cholesterol Calculated 80 mg/dL (0-129) HDL Cholesterol 38 mg/dL (40-60) Cholesterol/HDL Ratio 3.1 Test 08/07/17 07:49 08/07/17 12:34 Glucose (Fingerstick) 104 mg/dL (70-99) 193 mg/dL (70-99) Assessment Assessment Anemia- chronic (reviewed prior labs) with acute drop- no overt bleeding but history of ulcers, increased BUN support possible UGI source HOWEVER, has not had colonoscopy in a number of years as well, so occult polyps Ca etc cant be excluded Problems: Plan Plan Transfuse as ordered check stool hemocult, check iron profile PPI avoid NSAIDS EGD and colonoscopy on Wednesday Thank you for allowing us to participate in the care of your patient. We will continue to follow the patient with you and provide an appropriate recommendation as it becomes available. SANDRA SANCHEZ MD Aug 07, 2017 14:03
[2017-08-07] MEDS ORDERED: BISACODYL 5 MG TABLET.DR. PO ONE (14:15)
[2017-08-07 14:22] LABS: % SAT IRON 12 % (15-34); IRON,SERUM 47 ug/dL (50-170)
[2017-08-07] MEDS: MIRTAZAPINE 7.5 MG TABLET. PO SCH (20:29)
[2017-08-07] MEDS: INSULIN DETEMIR 300 UNITS/3 ML INSULN.PEN. SQ SCH (20:32)
[2017-08-08 03:39] VITALS: BP 130/60
[2017-08-08] MEDS: LEVOTHYROXINE 88 MCG TABLET PO SCH (06:12)
[2017-08-08 07:00] VITALS: BP 166/48
[2017-08-08] MEDS: MULTIVITAMIN with MINERAL TABLET. PO SCH (08:27)
[2017-08-08] MEDS: glipiZIDE 5 MG TABLET PO SCH ×2 (08:27→16:31)
[2017-08-08] MEDS: busPIRone 10 MG TABLET. PO SCH ×2 (08:27→20:57)
[2017-08-08] MEDS: PANTOPRAZOLE 40 MG TABLET.DR. PO SCH ×2 (08:27→16:30)
[2017-08-08] MEDS: lamoTRIgine 100 MG TABLET. PO SCH (08:28)
[2017-08-08] MEDS: FUROSEMIDE 40 MG/4 ML VIAL. IVP SCH (08:28)
[2017-08-08] MEDS: amLODIPine BESYLATE 10 MG TABLET PO SCH (08:28)
[2017-08-08] MEDS: FERROUS SULFATE 325 MG TABLET. PO SCH (08:28)
[2017-08-08 09:14] LABS: BASO % 1 % (0-3); EOS % 4 % (0-3); HEMATOCRIT 30.2 % (36.0-47.0); HEMOGLOBIN 10.4 g/dL (12.0-15.5); LYMPH # 1.4 x10^3/uL (1.0-4.8); LYMPH % 21 % (24-48); MEAN CORPUSCULAR HEMOGLOBIN 31 pg (25-35); MEAN CORPUSCULAR HGB CONC 35 g/dL (31-37); MEAN CORPUSCULAR VOLUME 88 fL (79-100); MONO % 5 % (0-9); NEUT % 69 % (31-73); PLATELET COUNT 207 x10^3/uL (140-400); RED BLOOD COUNT 3.42 x10^6/uL (3.50-5.40); RED CELL DISTRIBUTION WIDTH 15.6 % (11.5-14.5); WHITE BLOOD COUNT 6.6 x10^3/uL (4.0-11.0)
[2017-08-08 09:24] LABS: CALCIUM 8.9 mg/dL (8.5-10.1); CREATININE 2.3 mg/dL (0.6-1.0); POTASSIUM 3.9 mmol/L (3.5-5.1)
--- NOTE | 2017-08-08 10:06 | PDOC ---
Provider Note Provider Note vss, bp ok, feels better after 2 u- hb up 10, creat still up, was 1.1 in 2016- could be dm, will do renal sono, dc iv lasix, echo and endo pending re source of anemia KARYN SMITH MD Aug 08, 2017 10:06
[2017-08-08 11:00] VITALS: BP 119/53
[2017-08-08] MEDS ORDERED: POLYETHYLENE GLYCOL 3350 238 GM POWDER PO ONE (12:00)
--- NOTE | 2017-08-08 12:17 | CARD ---
APPROVED REPORT EXAM: Two-dimensional and M-mode echocardiogram with Doppler and color Doppler. Other Information Quality : Average Rhythm : NSR INDICATION Congestive Heart Failure 2D DIMENSIONS Left Atrium(2D)4.3 (1.6-4.0cm)IVSd1.1 (0.7-1.1cm) Aortic Root(2D)2.6 (2.0-3.7cm)LVDd5.7 (3.9-5.9cm) LVOT Diameter2.0 (1.8-2.4cm)PWd1.1 (0.7-1.1cm) LVDs3.8 (2.5-4.0cm)FS (%) 33.8 % SV100.0 mlLVEF(%)61.9 (>50%) Aortic Valve AoV Peak José Luis.210.2cm/sAoV VTI51.5cm AO Peak GR.17.7mmHgLVOT VTI 19.70cm AO Mean GR.10mmHgAI P 1/2 Yugz220lm Mitral Valve MV E Pvdjnwjc45.8cm/sMV E Peak Gr.4mmHg MV DECEL [id number] A Jcsxetmw82.5cm/s MV VMA30qoR/A Ratio1.1 MV A Qecmjfwx000cdACZ (PHT)6.47cm2 TDI Lateral E' P. V0.00cm/sMedial E' P. V6.41cm/s E/Lateral E'0.0E/Medial E'15.3 Tricuspid Valve TR P. Ufnnwfwe141ys/sRAP IOTETQUF60rbDo TR Peak Gr.08haBvNHRH80qeLi Pulmonary Vein S1 Agtvljgj13.0cm/sS2 Ccxsnstu04.02cm/s D2 Jrohdyoa61.0cm/s LEFT VENTRICLE The left ventricle is normal size. There is normal left ventricular wall thickness. Left ventricle sy stolic function is normal. The Ejection Fraction is 60%. There is normal LV segmental wall motion. Th e left ventricular diastolic function and filling is normal for age. RIGHT VENTRICLE The right ventricle is normal size. The right ventricular systolic function is normal. ATRIA The left atrium is mildly dilated. The right atrium size is normal. The interatrial septum is intact with no evidence for an atrial septal defect or patent foramen ovale as noted on 2-D or Doppler imagi ng. AORTIC VALVE The aortic valve is calcified and displays decreased opening. Doppler and Color Flow revealed mild to moderate aortic regurgitation. Mild aortic stenosis. MITRAL VALVE Mitral annular calcification is borderline. There is no mitral valve stenosis. Doppler and Color Flow revealed mild mitral regurgitation. TRICUSPID VALVE The tricuspid valve is normal in structure and function. Doppler and Color Flow revealed moderate tri cuspid regurgitation. The PA pressure was estimated at 55 mmHg. There is no tricuspid valve stenosis. PULMONIC VALVE The pulmonic valve is not well visualized. Doppler and Color Flow revealed mild pulmonic valvular reg urgitation. There is no pulmonic valvular stenosis. GREAT VESSELS The aortic root is normal in size. Normal pulmonary venous flow (Doppler). The IVC is dilated and col lapses <50% with inspiration. PERICARDIAL EFFUSION There is moderate right pleural effusion. There is no evidence of significant pericardial effusion. Critical Notification Critical Value: No <Conclusion> Left ventricle systolic function is normal. The Ejection Fraction is 60%. There is normal LV segmental wall motion. Mild aortic stenosis. Mild to moderate aortic regurgitation. Mild mitral regurgitation. Moderate tricuspid regurgitation. The PA pressure was estimated at 55 mmHg. There is no evidence of significant pericardial effusion.
--- NOTE | 2017-08-08 12:23 | PDOC ---
PROGRESS NOTES Subjective Subjective Dyspnea improved. Denied any further episodes of chest pain. Objective Objective Vital Signs Date Time Temp Pulse Resp B/P (MAP) Pulse Ox O2 Delivery O2 Flow Rate FiO2 08/08/17 11:00 98.2 65 19 119/53 (75) 98 Room Air 98.2 Physical Exam Abdomen: Soft, Other (diffuse tenderness more so to epigasteric and RLQ) Heart: Regular rate, Normal S1, Normal S2, Other (3/6 systolic murmur to TIA border) Extremities: No cyanosis, Other (2=3+ bilateral LE pitting edema) General: Alert, Oriented X3, Cooperative, No acute distress HEENT: Atraumatic, Mucous membr. moist/pink Lungs: Other (basilar crackles) Neuro: Normal speech, Sensation intact Psych/Mental Status: Mental status NL, Mood NL Skin: No breakdown, No significant lesion Assessment Assessment 1. Atypical CP: reproducible with palpation and most probably musculoskeletal. Myocardial infarction ruled out. 2-D echo did not show any regional wall motion abnormalities. Doubt ACS. 2. Acute on chronic diastolic CHF: Most probably from a combination of uncontrolled hypertension and anemia. Symptoms significantly improved with diuresis. Labs consistent with prerenal picture. Hold Lasix. 2-D echo showed normal LV systolic function. 3. Accelerated HTN: Better controlled since admission. Continue current medical regimen. 4. Abdominal pain, and anemia with hx of PUD: Defer to PCP 5. DM2: Per PCP Plan Plan of Care Problems Medical Problems: (1) Acute on chronic congestive heart failure Status: Acute (2) Acute renal failure Status: Acute (3) Chest pain Status: Acute (4) Malignant hypertension Status: Acute Comment Review of Relevant I have reviewed the following items connie (where applicable) has been applied. Labs Laboratory Tests Test 08/07/17 12:34 08/07/17 16:42 08/07/17 20:22 08/08/17 07:19 Glucose (Fingerstick) 193 mg/dL (70-99) 279 mg/dL (70-99) 275 mg/dL (70-99) 89 mg/dL (70-99) Test 08/08/17 08:45 08/08/17 12:01 White Blood Count 6.6 x10^3/uL (4.0-11.0) Red Blood Count 3.42 x10^6/uL (3.50-5.40) Hemoglobin 10.4 g/dL (12.0-15.5) Hematocrit 30.2 % (36.0-47.0) Mean Corpuscular Volume 88 fL (79-100) Mean Corpuscular Hemoglobin 31 pg (25-35) Mean Corpuscular Hemoglobin Concent 35 g/dL (31-37) Red Cell Distribution Width 15.6 % (11.5-14.5) Platelet Count 207 x10^3/uL (140-400) Neutrophils (%) (Auto) 69 % (31-73) Lymphocytes (%) (Auto) 21 % (24-48) Monocytes (%) (Auto) 5 % (0-9) Eosinophils (%) (Auto) 4 % (0-3) Basophils (%) (Auto) 1 % (0-3) Neutrophils # (Auto) 4.6 x10^3uL (1.8-7.7) Lymphocytes # (Auto) 1.4 x10^3/uL (1.0-4.8) Monocytes # (Auto) 0.4 x10^3/uL (0.0-1.1) Eosinophils # (Auto) 0.3 x10^3/uL (0.0-0.7) Basophils # (Auto) 0.0 x10^3/uL (0.0-0.2) Sodium Level 141 mmol/L (136-145) Potassium Level 3.9 mmol/L (3.5-5.1) Chloride Level 101 mmol/L (98-107) Carbon Dioxide Level 32 mmol/L (21-32) Anion Gap 8 (6-14) Blood Urea Nitrogen 51 mg/dL (7-20) Creatinine 2.3 mg/dL (0.6-1.0) Estimated GFR (Cockcroft-Gault) 21.0 Glucose Level 79 mg/dL (70-99) Calcium Level 8.9 mg/dL (8.5-10.1) Glucose (Fingerstick) 267 mg/dL (70-99) Medications Current Medications Alprazolam (Xanax) 0.25 mg PRN Q8HRS PRN PO ANXIETY / AGITATION; Start at 10:15 Bisacodyl (Dulcolax Tab) 10 mg 1X ONCE PO ; Start 08/07/17 at 14:15; Stop 08/07 at 14:16; Status DC Polyethylene Glycol (miraLAX Powder BULK BOTTLE) 238 gm 1X ONCE PO ; Start at 12:00; Stop 08/08/17 at 12:01; Status DC Vitals/I & O Vital Sign - Last 24 Hours 08/07/17 08/07/17 08/07/17 08/07/17 15:00 15:46 16:01 17:00 Temp 98.4 98.4 97.9 98.1 98.4 98.4 97.9 98.1 Pulse 78 64 62 65 Resp 18 19 18 18 B/P (MAP) 137/40 (72) 137/40 149/65 161/64 Pulse Ox 92 O2 Delivery Room Air 08/07/17 08/07/17 08/07/17 08/07/17 18:00 19:15 19:40 22:53 Temp 97.8 98.7 98.1 97.8 98.7 98.1 Pulse 67 65 70 Resp 18 18 16 B/P (MAP) 173/76 149/56 (87) 149/63 (91) Pulse Ox 94 96 O2 Delivery Room Air Room Air Room Air 08/08/17 08/08/17 08/08/17 08/08/17 03:39 07:00 08:00 08:28 Temp 98.0 98.4 98.0 98.4 Pulse 66 73 73 Resp 18 19 B/P (MAP) 130/60 (83) 166/48 (87) 166/48 Pulse Ox 93 97 O2 Delivery Room Air Room Air Room Air 08/08/17 11:00 Temp 98.2 98.2 Pulse 65 Resp 19 B/P (MAP) 119/53 (75) Pulse Ox 98 O2 Delivery Room Air FLORI DOMINGO MD Aug 08, 2017 12:23
[2017-08-08 15:00] VITALS: BP 148/42
[2017-08-08] MEDS: BENZOCAINE/MENTHOL LOZENGE. PO PRN (17:57)
[2017-08-08 19:48] VITALS: BP 136/69
[2017-08-08] MEDS: MIRTAZAPINE 7.5 MG TABLET. PO SCH (20:57)
[2017-08-08] MEDS ORDERED: INSULIN DETEMIR 300 UNITS/3 ML INSULN.PEN. SQ SCH (21:00)
[2017-08-08 22:52] VITALS: BP 157/65
[2017-08-09] VITALS (14 sets, daily range): BP systolic 116–189; BP diastolic 54–128
[2017-08-09] MEDS ORDERED: DEXTROSE 50% 25 GM / 50ML DISP.SYRIN. IV ONE ×2 (04:20→04:55)
[2017-08-09] MEDS: LEVOTHYROXINE 88 MCG TABLET PO SCH (07:00)
[2017-08-09 07:10] LABS: CALCIUM 8.8 mg/dL (8.5-10.1); GFR 24.6; POTASSIUM 3.3 mmol/L (3.5-5.1)
[2017-08-09] MEDS: glipiZIDE 5 MG TABLET PO SCH ×2 (07:30→16:30)
--- NOTE | 2017-08-09 07:34 | RAD ---
EXAM: Renal/retroperitonal ultrasound HISTORY: Chronic renal disease. COMPARISON: None. FINDINGS: Ultrasound of the kidneys, bladder and retroperitoneum was performed. The right kidney measures 10.1 cm. Cortical thickness and echogenicity are preserved. There is no hydronephrosis. The left kidney measures 9.6 cm. Cortical thickness and echogenicity are preserved. There is no hydronephrosis. Images of the bladder reveal no gross abnormality. Pleural effusions are noted. IMPRESSION: 1. Unremarkable examination of the kidneys. No hydronephrosis. Pleural effusions are noted.
[2017-08-09] MEDS: DEXTROSE 50% 25 GM / 50ML DISP.SYRIN. IV PRN ×2 (07:39→13:17)
--- NOTE | 2017-08-09 08:15 | PDOC ---
GENERAL General: vss and afebrile. awake and alert and without complaints. hypoglycemia this am with increased dose of levemir last night and will cut back to her usual dose of 10 units. somewhat of sore throat and lozenges ordered. chest clear and hear regular and abdomen benign. endoscopy today for GI bleed with plans to follow. Hb up to 10.4 this after transfusion and creatinine decreased to 2.0. Problems: VITAL SIGNS Vital Signs: Vital Signs Date Time Temp Pulse Resp B/P (MAP) Pulse Ox O2 Delivery O2 Flow Rate FiO2 08/09/17 06:24 43 16 116/54 (74) 97 Room Air 08/09/17 03:30 97.1 97.1 ALLERGIES Allergies: Allergies Coded Allergies Type Severity Reaction Last Updated Verified No Known Drug Allergies 08/06/17 No MEDS Medications: Current Medications Medications (Trade) Dose Ordered Sig/Angeles Start Time Stop Time Status Last Admin Dose Admin Alprazolam (Xanax) 0.25 mg PRN Q8HRS PRN 08/08/17 10:15 Amlodipine Besylate (Norvasc) 10 mg DAILY 08/06/17 17:00 08/08/17 08:28 10 MG Aspirin (Children'S Aspirin) 324 mg 1X ONCE 08/06/17 13:00 08/06/17 13:01 DC 08/06/17 13:10 324 MG Bisacodyl (Dulcolax Tab) 10 mg 1X ONCE 08/07/17 14:15 08/07/17 14:16 DC Buspirone HCl (Buspar) 10 mg BID 08/06/17 21:00 08/08/17 20:57 10 MG Dextrose (Dextrose 50%-Water Syringe) 25 gm PRN Q15MIN PRN 08/09/17 07:45 08/09/17 07:39 25 GM Ferrous Sulfate (Feosol) 325 mg DAILY 08/07/17 09:00 08/08/17 08:28 325 MG Furosemide (Lasix) 40 mg BID92 08/07/17 09:00 08/08/17 10:01 DC 08/08/17 08:28 40 MG Glipizide (Glucotrol) 5 mg BIDBFRMEAL 08/06/17 18:00 08/08/17 16:31 5 MG Insulin Detemir (Levemir) 20 units QHS 08/08/17 21:00 08/08/17 21:00 20 UNITS Labetalol HCl (Normodyne) 20 mg PRN Q2HR PRN 08/06/17 14:15 Lamotrigine (LaMICtal) 100 mg DAILY 08/07/17 09:00 08/08/17 08:28 100 MG Levothyroxine Sodium (Synthroid) 88 mcg DAILY07 08/07/17 07:00 08/08/17 06:12 88 MCG Mirtazapine (Remeron) 7.5 mg QHS 08/06/17 21:00 08/08/17 20:57 7.5 MG Multivitamins (Thera M Plus) 1 tab DAILY 08/07/17 09:00 08/08/17 08:27 1 TAB Ondansetron HCl (Zofran) 4 mg PRN Q8HRS PRN 08/06/17 14:15 08/07/17 14:14 DC Pantoprazole Sodium (Protonix) 40 mg BIDAC 08/06/17 18:00 08/08/17 16:30 40 MG Polyethylene Glycol (miraLAX Powder BULK BOTTLE) 238 gm 1X ONCE 08/08/17 12:00 08/08/17 12:01 DC 08/08/17 12:37 238 GM Sodium Chloride 1,000 ml @ 50 mls/hr Q20H 08/06/17 12:54 08/06/17 16:20 DC 08/06/17 13:14 50 MLS/HR Throat Lozenges (Cepacol Sore Throat Lozenge) 1 benita PRN Q2HRS PRN 08/08/17 17:00 08/08/17 17:57 1 [facility] Lab: Laboratory Tests Test 08/08/17 08:45 08/08/17 12:01 08/08/17 16:47 08/08/17 20:56 White Blood Count 6.6 x10^3/uL (4.0-11.0) Red Blood Count 3.42 x10^6/uL (3.50-5.40) Hemoglobin 10.4 g/dL (12.0-15.5) Hematocrit 30.2 % (36.0-47.0) Mean Corpuscular Volume 88 fL (79-100) Mean Corpuscular Hemoglobin 31 pg (25-35) Mean Corpuscular Hemoglobin Concent 35 g/dL (31-37) Red Cell Distribution Width 15.6 % (11.5-14.5) Platelet Count 207 x10^3/uL (140-400) Neutrophils (%) (Auto) 69 % (31-73) Lymphocytes (%) (Auto) 21 % (24-48) Monocytes (%) (Auto) 5 % (0-9) Eosinophils (%) (Auto) 4 % (0-3) Basophils (%) (Auto) 1 % (0-3) Neutrophils # (Auto) 4.6 x10^3uL (1.8-7.7) Lymphocytes # (Auto) 1.4 x10^3/uL (1.0-4.8) Monocytes # (Auto) 0.4 x10^3/uL (0.0-1.1) Eosinophils # (Auto) 0.3 x10^3/uL (0.0-0.7) Basophils # (Auto) 0.0 x10^3/uL (0.0-0.2) Sodium Level 141 mmol/L (136-145) Potassium Level 3.9 mmol/L (3.5-5.1) Chloride Level 101 mmol/L (98-107) Carbon Dioxide Level 32 mmol/L (21-32) Anion Gap 8 (6-14) Blood Urea Nitrogen 51 mg/dL (7-20) Creatinine 2.3 mg/dL (0.6-1.0) Estimated GFR (Cockcroft-Gault) 21.0 Glucose Level 79 mg/dL (70-99) Calcium Level 8.9 mg/dL (8.5-10.1) Glucose (Fingerstick) 267 mg/dL (70-99) 365 mg/dL (70-99) 396 mg/dL (70-99) Test 08/09/17 04:18 08/09/17 04:47 08/09/17 05:44 08/09/17 06:09 Glucose (Fingerstick) 40 mg/dL (70-99) 98 mg/dL (70-99) 45 mg/dL (70-99) Sodium Level 140 mmol/L (136-145) Potassium Level 3.3 mmol/L (3.5-5.1) Chloride Level 103 mmol/L (98-107) Carbon Dioxide Level 31 mmol/L (21-32) Anion Gap 6 (6-14) Blood Urea Nitrogen 44 mg/dL (7-20) Creatinine 2.0 mg/dL (0.6-1.0) Estimated GFR (Cockcroft-Gault) 24.6 Glucose Level 47 mg/dL (70-99) Calcium Level 8.8 mg/dL (8.5-10.1) Test 08/09/17 06:33 Glucose (Fingerstick) 95 mg/dL (70-99) APPLHOUSTON MD Aug 09, 2017 08:15
[2017-08-09] MEDS: BENZOCAINE/MENTHOL LOZENGE. PO PRN ×3 (09:00→21:12)
[2017-08-09] MEDS ORDERED: IV RINGERS,LACTATED 1000ML 1,000 ML IV SCH (13:52)
[2017-08-09] MEDS ORDERED: MIDAZOLAM HCL/PF 2 MG/2 ML VIAL. IV PRN (14:00)
[2017-08-09] MEDS ORDERED: fentaNYL PF VIAL 100 MCG/2 ML VIAL IV PRN ×2 (14:00)
[2017-08-09] MEDS ORDERED: LIDOCAINE 1% PF 2 ML VIAL. ID PRN (14:00)
[2017-08-09] MEDS ORDERED: PROPOFOL 20 ML IV ONE (14:03)
[2017-08-09] MEDS ORDERED: LIDOCAINE 2% PF Vial for OR 5 ML VIAL. ONE (14:04)
--- NOTE | 2017-08-09 15:22 | PDOC4 ---
PROCEDURE Procedure EGD/colonoscopy Indication: ZAFAR Meds: per anesthesia Findings: E--less than grade I esophagitis at 38cm. G--Antral erythema, striped, mild. What appears to be GAVE in pre-pyloric area. Biopsies of the erythema. D--Normal to third portion. Biopsies second part. DOMINGO normal. Mucosa normal to cecum. Scattered diverticula, sigmoid. No polyps, etc. Vitaly. well. IMP: 1. reflux esophagitis 2. non-specific antral erythema 3. GAVE. Not too "giant", limited to prepyloric area. 4. diverticulosis. REC: 1. po or iv iron, may need chronically. 2. If on PPI, continue. 3. await path. Thanks. DOMINGO AHUJA MD Aug 09, 2017 15:22
[2017-08-09] MEDS: lamoTRIgine 100 MG TABLET. PO SCH (16:03)
[2017-08-09] MEDS: FERROUS SULFATE 325 MG TABLET. PO SCH (16:03)
[2017-08-09] MEDS: busPIRone 10 MG TABLET. PO SCH ×2 (16:03→21:00)
[2017-08-09] MEDS: PANTOPRAZOLE 40 MG TABLET.DR. PO SCH ×2 (16:03→16:30)
[2017-08-09] MEDS: MULTIVITAMIN with MINERAL TABLET. PO SCH (16:04)
[2017-08-09] MEDS: amLODIPine BESYLATE 10 MG TABLET PO SCH (16:04)
[2017-08-09] MEDS: ALPRAZolam 0.25 MG TABLET PO PRN (16:04)
[2017-08-09] MEDS ORDERED: hydrALAZINE 20 MG/ML VIAL. IVP PRN (16:45)
[2017-08-09] MEDS: MIRTAZAPINE 7.5 MG TABLET. PO SCH (21:00)
[2017-08-09] MEDS: INSULIN DETEMIR 300 UNITS/3 ML INSULN.PEN. SQ SCH (21:03)
[2017-08-09] MEDS ORDERED: INSULIN ASPART 300 UNITS/3 ML INSULN.PEN SQ ONE (21:30)
[2017-08-10 03:00] VITALS: BP 134/64
[2017-08-10 04:51] LABS: BASO % 1 % (0-3); EOS % 3 % (0-3); HEMATOCRIT 29.2 % (36.0-47.0); HEMOGLOBIN 9.9 g/dL (12.0-15.5); LYMPH # 1.3 x10^3/uL (1.0-4.8); LYMPH % 19 % (24-48); MEAN CORPUSCULAR HEMOGLOBIN 30 pg (25-35); MEAN CORPUSCULAR HGB CONC 34 g/dL (31-37); MEAN CORPUSCULAR VOLUME 90 fL (79-100); MONO % 5 % (0-9); NEUT % 72 % (31-73); PLATELET COUNT 161 x10^3/uL (140-400); RED BLOOD COUNT 3.26 x10^6/uL (3.50-5.40); RED CELL DISTRIBUTION WIDTH 15.8 % (11.5-14.5); WHITE BLOOD COUNT 6.7 x10^3/uL (4.0-11.0)
[2017-08-10 05:08] LABS: CALCIUM 8.1 mg/dL (8.5-10.1); GFR 24.6; POTASSIUM 4.1 mmol/L (3.5-5.1)
[2017-08-10] MEDS: PANTOPRAZOLE 40 MG TABLET.DR. PO SCH ×2 (06:22→16:36)
[2017-08-10] MEDS: LEVOTHYROXINE 88 MCG TABLET PO SCH (06:22)
[2017-08-10] MEDS: glipiZIDE 5 MG TABLET PO SCH ×2 (06:22→16:36)
[2017-08-10 07:00] VITALS: BP 172/70
--- NOTE | 2017-08-10 08:42 | PDOC ---
GENERAL General: vss and afebrile. awake and alert and concerned about pedal edema this am which is cw venous stasis edema and same explained to patient. Hb stable at 9.9. sugars increased yesterday pm and 136 this am. egd without source of bleeding and can't find colonoscopy report. chest clear and heart regular and abdomen benign. observe at least through today with likely dc if stable. Problems: VITAL SIGNS Vital Signs: Vital Signs Date Time Temp Pulse Resp B/P (MAP) Pulse Ox O2 Delivery O2 Flow Rate FiO2 08/10/17 07:00 97.8 67 172/70 (104) 100 Nasal Cannula 2.0 97.8 08/09/17 15:46 16 ALLERGIES Allergies: Allergies Coded Allergies Type Severity Reaction Last Updated Verified No Known Drug Allergies 08/09/17 No MEDS Medications: Current Medications Medications (Trade) Dose Ordered Sig/Angeles Start Time Stop Time Status Last Admin Dose Admin Alprazolam (Xanax) 0.25 mg PRN Q8HRS PRN 08/08/17 10:15 08/09/17 16:04 0.25 MG Amlodipine Besylate (Norvasc) 10 mg DAILY 08/06/17 17:00 08/09/17 16:04 10 MG Aspirin (Children'S Aspirin) 324 mg 1X ONCE 08/06/17 13:00 08/06/17 13:01 DC 08/06/17 13:10 324 MG Bisacodyl (Dulcolax Tab) 10 mg 1X ONCE 08/07/17 14:15 08/07/17 14:16 DC Buspirone HCl (Buspar) 10 mg BID 08/06/17 21:00 08/09/17 21:00 10 MG Dextrose (Dextrose 50%-Water Syringe) 25 gm PRN Q15MIN PRN 08/09/17 07:45 08/09/17 13:17 25 GM Fentanyl Citrate (Fentanyl 2ml Vial) 50 mcg PRN Q5MIN PRN 08/09/17 14:00 08/10/17 13:59 Ferrous Sulfate (Feosol) 325 mg DAILY 08/07/17 09:00 08/09/17 16:03 325 MG Furosemide (Lasix) 40 mg BID92 08/07/17 09:00 08/08/17 10:01 DC 08/08/17 08:28 40 MG Glipizide (Glucotrol) 5 mg BIDBFRMEAL 08/06/17 18:00 08/10/17 06:22 5 MG Hydralazine HCl (Apresoline) 10 mg PRN Q4HRS PRN 08/09/17 16:45 Influenza Virus Vaccine Quadrival (Fluarix Quad [id number] Syringe) 0.5 ml ONCE ONCE 08/10/17 09:00 08/10/17 09:01 Insulin Aspart (NovoLOG) 1 units 1X ONCE 08/09/17 21:30 08/09/17 21:31 DC 08/09/17 22:23 1 UNITS Insulin Detemir (Levemir) 10 units QHS 08/09/17 21:00 08/09/17 21:03 10 UNITS Labetalol HCl (Normodyne) 20 mg PRN Q2HR PRN 08/06/17 14:15 Lamotrigine (LaMICtal) 100 mg DAILY 08/07/17 09:00 08/09/17 16:03 100 MG Levothyroxine Sodium (Synthroid) 88 mcg DAILY07 08/07/17 07:00 08/10/17 06:22 88 MCG Lidocaine HCl (Lidocaine Pf 2% Vial) 5 ml STK-MED ONCE 08/09/17 14:04 08/09/17 14:05 DC Lidocaine HCl (Xylocaine-Mpf 1% Vial) 2 ml 1X PRN PRN 08/09/17 14:00 08/10/17 13:59 Midazolam HCl (Versed) 2 mg PRN 1X PRN 08/09/17 14:00 08/10/17 13:59 Mirtazapine (Remeron) 7.5 mg QHS 08/06/17 21:00 08/09/17 21:00 7.5 MG Multivitamins (Thera M Plus) 1 tab DAILY 08/07/17 09:00 08/09/17 16:04 1 TAB Ondansetron HCl (Zofran) 4 mg PRN Q8HRS PRN 08/06/17 14:15 08/07/17 14:14 DC Pantoprazole Sodium (Protonix) 40 mg BIDAC 08/06/17 18:00 08/10/17 06:22 40 MG Polyethylene Glycol (miraLAX Powder BULK BOTTLE) 238 gm 1X ONCE 08/08/17 12:00 08/08/17 12:01 DC 08/08/17 12:37 238 GM Propofol 20 ml @ As Directed STK-MED ONCE 08/09/17 14:03 08/09/17 14:04 DC Ringer's Solution 1,000 ml @ 125 mls/hr Q8H 08/09/17 13:52 08/09/17 16:31 DC Sodium Chloride 1,000 ml @ 50 mls/hr Q20H 08/06/17 12:54 08/06/17 16:20 DC 08/06/17 13:14 50 MLS/HR Throat Lozenges (Cepacol Sore Throat Lozenge) 1 benita PRN Q2HRS PRN 08/08/17 17:00 08/09/17 21:12 1 [facility] Lab: Laboratory Tests Test 08/09/17 10:06 08/09/17 13:10 08/09/17 13:49 08/09/17 16:07 Glucose (Fingerstick) 80 mg/dL (70-99) 62 mg/dL (70-99) 135 mg/dL (70-99) 85 mg/dL (70-99) Test 08/09/17 20:59 08/10/17 04:20 08/10/17 07:08 Glucose (Fingerstick) 341 mg/dL (70-99) 136 mg/dL (70-99) White Blood Count 6.7 x10^3/uL (4.0-11.0) Red Blood Count 3.26 x10^6/uL (3.50-5.40) Hemoglobin 9.9 g/dL (12.0-15.5) Hematocrit 29.2 % (36.0-47.0) Mean Corpuscular Volume 90 fL (79-100) Mean Corpuscular Hemoglobin 30 pg (25-35) Mean Corpuscular Hemoglobin Concent 34 g/dL (31-37) Red Cell Distribution Width 15.8 % (11.5-14.5) Platelet Count 161 x10^3/uL (140-400) Neutrophils (%) (Auto) 72 % (31-73) Lymphocytes (%) (Auto) 19 % (24-48) Monocytes (%) (Auto) 5 % (0-9) Eosinophils (%) (Auto) 3 % (0-3) Basophils (%) (Auto) 1 % (0-3) Neutrophils # (Auto) 4.8 x10^3uL (1.8-7.7) Lymphocytes # (Auto) 1.3 x10^3/uL (1.0-4.8) Monocytes # (Auto) 0.3 x10^3/uL (0.0-1.1) Eosinophils # (Auto) 0.2 x10^3/uL (0.0-0.7) Basophils # (Auto) 0.0 x10^3/uL (0.0-0.2) Sodium Level 140 mmol/L (136-145) Potassium Level 4.1 mmol/L (3.5-5.1) Chloride Level 103 mmol/L (98-107) Carbon Dioxide Level 31 mmol/L (21-32) Anion Gap 6 (6-14) Blood Urea Nitrogen 44 mg/dL (7-20) Creatinine 2.0 mg/dL (0.6-1.0) Estimated GFR (Cockcroft-Gault) 24.6 Glucose Level 248 mg/dL (70-99) Calcium Level 8.1 mg/dL (8.5-10.1) HOUSTON SILVER MD Aug 10, 2017 08:42
[2017-08-10] MEDS: MULTIVITAMIN with MINERAL TABLET. PO SCH (08:48)
[2017-08-10] MEDS: FERROUS SULFATE 325 MG TABLET. PO SCH (08:48)
[2017-08-10] MEDS: busPIRone 10 MG TABLET. PO SCH ×2 (08:49→21:18)
[2017-08-10] MEDS: lamoTRIgine 100 MG TABLET. PO SCH (08:49)
[2017-08-10] MEDS: amLODIPine BESYLATE 10 MG TABLET PO SCH (08:49)
[2017-08-10] MEDS ORDERED: FLU VACC QS2017-18 (36MOS+)/PF 0.5 ML SYRINGE. VAX IM ONE (09:00)
[2017-08-10 11:00] VITALS: BP 154/47
--- NOTE | 2017-08-10 13:03 | PDOC ---
Subjective: Subjective: No GI complaints. Concerned re: leg swelling, is elevating feet. Doesn't want family to know about her "illnesses." Objective: Vital Signs: Vital Signs Date Time Temp Pulse Resp B/P (MAP) Pulse Ox O2 Delivery O2 Flow Rate FiO2 08/10/17 11:00 98.5 66 154/47 (82) 100 Nasal Cannula 2.0 98.5 08/09/17 15:46 16 Labs: Laboratory Tests Test 08/09/17 13:10 08/09/17 13:49 08/09/17 16:07 08/09/17 20:59 Glucose (Fingerstick) 62 mg/dL (70-99) 135 mg/dL (70-99) 85 mg/dL (70-99) 341 mg/dL (70-99) Test 08/10/17 07:08 08/10/17 10:10 Glucose (Fingerstick) 136 mg/dL (70-99) 134 mg/dL (70-99) Imaging: EGD and colonoscopy 08/09/17 E--less than grade I esophagitis at 38cm. G--Antral erythema, striped, mild. What appears to be GAVE in pre-pyloric area. Biopsies of the erythema. D--Normal to third portion. Biopsies second part. Colon: DOMINGO normal. Mucosa normal to cecum. Scattered diverticula, sigmoid. No polyps, etc. IMP: 1. reflux esophagitis 2. non-specific antral erythema 3. GAVE. Not too "giant", limited to prepyloric area. 4. diverticulosis. REC: 1. po or iv iron, may need chronically. 2. If on PPI, continue. 3. await path. Thanks. PE: GEN: NAD, up to chair LUNGS: clear HEART: RRR ABD: S/ND/NT NEURO/PSYCH: A & O 3 A/P: ZAFAR -'scopes yesterday as above w/ reflux, antral erythema, GAVE, and diverticulosis (path pending) -on iron QD + PPI BID -- Continue same. TANG SERRA Aug 10, 2017 13:03
[2017-08-10 15:00] VITALS: BP 147/42
[2017-08-10] MEDS ORDERED: BENZONATATE 100 MG CAPSULE. PO PRN (17:30)
[2017-08-10 19:15] VITALS: BP 143/42
[2017-08-10] MEDS: MIRTAZAPINE 7.5 MG TABLET. PO SCH (21:18)
[2017-08-10] MEDS: ALPRAZolam 0.25 MG TABLET PO PRN (21:18)
[2017-08-10] MEDS: INSULIN DETEMIR 300 UNITS/3 ML INSULN.PEN. SQ SCH (21:20)
[2017-08-10] MEDS: BENZOCAINE/MENTHOL LOZENGE. PO PRN (21:22)
[2017-08-10 23:00] VITALS: BP 151/55
[2017-08-11 02:45] VITALS: BP 140/52
[2017-08-11 03:43] LABS: BASO % 0 % (0-3); EOS % 3 % (0-3); HEMATOCRIT 26.5 % (36.0-47.0); HEMOGLOBIN 8.8 g/dL (12.0-15.5); LYMPH # 1.2 x10^3/uL (1.0-4.8); LYMPH % 17 % (24-48); MEAN CORPUSCULAR HEMOGLOBIN 30 pg (25-35); MEAN CORPUSCULAR HGB CONC 33 g/dL (31-37); MEAN CORPUSCULAR VOLUME 89 fL (79-100); MONO % 6 % (0-9); NEUT % 74 % (31-73); PLATELET COUNT 148 x10^3/uL (140-400); RED BLOOD COUNT 2.97 x10^6/uL (3.50-5.40); RED CELL DISTRIBUTION WIDTH 16.2 % (11.5-14.5); WHITE BLOOD COUNT 7.2 x10^3/uL (4.0-11.0)
[2017-08-11 04:03] LABS: CALCIUM 7.9 mg/dL (8.5-10.1); CREATININE 2.6 mg/dL (0.6-1.0); GFR 18.2; POTASSIUM 4.5 mmol/L (3.5-5.1)
[2017-08-11 04:13] LABS: % SAT IRON 17 % (15-34); IRON,SERUM 48 ug/dL (50-170)
[2017-08-11] MEDS: LEVOTHYROXINE 88 MCG TABLET PO SCH (06:28)
[2017-08-11 07:00] VITALS: BP 149/59
--- NOTE | 2017-08-11 08:01 | PDOC ---
GENERAL General: vss and afebrile. awake and alert and ongoing cough. creatinine increased to 2.6 today and Hb decreased to 8. will ask for cardiology and renal opinions. decreased breath sounds at bases of lungs and heart regular. trace edema feet. will also repeat cxr with cough and likely fluid related with bilateral pleural effusions on admit and elevated bnp. EF 60% on echo. Problems: VITAL SIGNS Vital Signs: Vital Signs Date Time Temp Pulse Resp B/P (MAP) Pulse Ox O2 Delivery O2 Flow Rate FiO2 08/11/17 02:45 99.1 72 18 140/52 (81) 96 Room Air 99.1 08/10/17 15:00 2.0 ALLERGIES Allergies: Allergies Coded Allergies Type Severity Reaction Last Updated Verified No Known Drug Allergies 08/09/17 No MEDS Medications: Current Medications Medications (Trade) Dose Ordered Sig/Angeles Start Time Stop Time Status Last Admin Dose Admin Alprazolam (Xanax) 0.25 mg PRN Q8HRS PRN 08/08/17 10:15 08/10/17 21:18 0.25 MG Amlodipine Besylate (Norvasc) 10 mg DAILY 08/06/17 17:00 08/10/17 08:49 10 MG Aspirin (Children'S Aspirin) 324 mg 1X ONCE 08/06/17 13:00 08/06/17 13:01 DC 08/06/17 13:10 324 MG Benzonatate (Tessalon Perle) 100 mg PRN TID PRN 08/10/17 17:30 08/10/17 21:19 100 MG Bisacodyl (Dulcolax Tab) 10 mg 1X ONCE 08/07/17 14:15 08/07/17 14:16 DC Buspirone HCl (Buspar) 10 mg BID 08/06/17 21:00 08/10/17 21:18 10 MG Dextrose (Dextrose 50%-Water Syringe) 25 gm PRN Q15MIN PRN 08/09/17 07:45 08/09/17 13:17 25 GM Fentanyl Citrate (Fentanyl 2ml Vial) 50 mcg PRN Q5MIN PRN 08/09/17 14:00 08/10/17 13:59 DC Ferrous Sulfate (Feosol) 325 mg DAILY 08/07/17 09:00 08/10/17 08:48 325 MG Furosemide (Lasix) 40 mg BID92 08/07/17 09:00 08/08/17 10:01 DC 08/08/17 08:28 40 MG Glipizide (Glucotrol) 5 mg BIDBFRMEAL 08/06/17 18:00 08/10/17 16:36 5 MG Hydralazine HCl (Apresoline) 10 mg PRN Q4HRS PRN 08/09/17 16:45 Influenza Virus Vaccine Quadrival (Fluarix Quad [id number] Syringe) 0.5 ml ONCE ONCE 08/10/17 09:00 08/10/17 09:01 DC Insulin Aspart (NovoLOG) 1 units 1X ONCE 08/09/17 21:30 08/09/17 21:31 DC 08/09/17 22:23 1 UNITS Insulin Detemir (Levemir) 10 units QHS 08/09/17 21:00 08/10/17 21:20 10 UNITS Labetalol HCl (Normodyne) 20 mg PRN Q2HR PRN 08/06/17 14:15 Lamotrigine (LaMICtal) 100 mg DAILY 08/07/17 09:00 08/10/17 08:49 100 MG Levothyroxine Sodium (Synthroid) 88 mcg DAILY07 08/07/17 07:00 08/11/17 06:28 88 MCG Lidocaine HCl (Lidocaine Pf 2% Vial) 5 ml STK-MED ONCE 08/09/17 14:04 08/09/17 14:05 DC Lidocaine HCl (Xylocaine-Mpf 1% Vial) 2 ml 1X PRN PRN 08/09/17 14:00 08/10/17 13:59 DC Midazolam HCl (Versed) 2 mg PRN 1X PRN 08/09/17 14:00 08/10/17 13:59 DC Mirtazapine (Remeron) 7.5 mg QHS 08/06/17 21:00 08/10/17 21:18 7.5 MG Multivitamins (Thera M Plus) 1 tab DAILY 08/07/17 09:00 08/10/17 08:48 1 TAB Ondansetron HCl (Zofran) 4 mg PRN Q8HRS PRN 08/06/17 14:15 08/07/17 14:14 DC Pantoprazole Sodium (Protonix) 40 mg BIDAC 08/06/17 18:00 08/10/17 16:36 40 MG Polyethylene Glycol (miraLAX Powder BULK BOTTLE) 238 gm 1X ONCE 08/08/17 12:00 08/08/17 12:01 DC 08/08/17 12:37 238 GM Propofol 20 ml @ As Directed STK-MED ONCE 08/09/17 14:03 08/09/17 14:04 DC Ringer's Solution 1,000 ml @ 125 mls/hr Q8H 08/09/17 13:52 08/09/17 16:31 DC Sodium Chloride 1,000 ml @ 50 mls/hr Q20H 08/06/17 12:54 08/06/17 16:20 DC 08/06/17 13:14 50 MLS/HR Throat Lozenges (Cepacol Sore Throat Lozenge) 1 benita PRN Q2HRS PRN 08/08/17 17:00 08/10/17 21:22 1 [facility] Lab: Laboratory Tests Test 08/10/17 10:10 08/10/17 16:28 08/10/17 20:33 08/11/17 03:12 Glucose (Fingerstick) 134 mg/dL (70-99) 273 mg/dL (70-99) 233 mg/dL (70-99) White Blood Count 7.2 x10^3/uL (4.0-11.0) Red Blood Count 2.97 x10^6/uL (3.50-5.40) Hemoglobin 8.8 g/dL (12.0-15.5) Hematocrit 26.5 % (36.0-47.0) Mean Corpuscular Volume 89 fL (79-100) Mean Corpuscular Hemoglobin 30 pg (25-35) Mean Corpuscular Hemoglobin Concent 33 g/dL (31-37) Red Cell Distribution Width 16.2 % (11.5-14.5) Platelet Count 148 x10^3/uL (140-400) Neutrophils (%) (Auto) 74 % (31-73) Lymphocytes (%) (Auto) 17 % (24-48) Monocytes (%) (Auto) 6 % (0-9) Eosinophils (%) (Auto) 3 % (0-3) Basophils (%) (Auto) 0 % (0-3) Neutrophils # (Auto) 5.3 x10^3uL (1.8-7.7) Lymphocytes # (Auto) 1.2 x10^3/uL (1.0-4.8) Monocytes # (Auto) 0.4 x10^3/uL (0.0-1.1) Eosinophils # (Auto) 0.2 x10^3/uL (0.0-0.7) Basophils # (Auto) 0.0 x10^3/uL (0.0-0.2) Sodium Level 138 mmol/L (136-145) Potassium Level 4.5 mmol/L (3.5-5.1) Chloride Level 102 mmol/L (98-107) Carbon Dioxide Level 32 mmol/L (21-32) Anion Gap 4 (6-14) Blood Urea Nitrogen 55 mg/dL (7-20) Creatinine 2.6 mg/dL (0.6-1.0) Estimated GFR (Cockcroft-Gault) 18.2 Glucose Level 318 mg/dL (70-99) Calcium Level 7.9 mg/dL (8.5-10.1) Iron Level 48 ug/dL (50-170) Total Iron Binding Capacity 281 ug/dL (250-450) Iron Saturation 17 % (15-34) Test 08/11/17 07:52 Glucose (Fingerstick) 199 mg/dL (70-99) HOUSTON SILVER MD Aug 11, 2017 08:01
[2017-08-11] MEDS: MULTIVITAMIN with MINERAL TABLET. PO SCH (08:43)
[2017-08-11] MEDS: glipiZIDE 5 MG TABLET PO SCH ×2 (08:43→16:17)
[2017-08-11] MEDS: lamoTRIgine 100 MG TABLET. PO SCH (08:43)
[2017-08-11] MEDS: busPIRone 10 MG TABLET. PO SCH ×2 (08:43→21:04)
[2017-08-11] MEDS: PANTOPRAZOLE 40 MG TABLET.DR. PO SCH ×2 (08:44→16:17)
[2017-08-11] MEDS: amLODIPine BESYLATE 10 MG TABLET PO SCH (08:44)
[2017-08-11] MEDS: FERROUS SULFATE 325 MG TABLET. PO SCH ×2 (08:44→17:35)
[2017-08-11] MEDS ORDERED: FUROSEMIDE 40 MG/4 ML VIAL. IVP SCH ×2 (09:00→13:00)
--- NOTE | 2017-08-11 10:15 | PDOC ---
Subjective: Subjective: Has a cough. Objective: Objective: Per RN - no GI concerns, cardiology and renal asked to see. Vital Signs: Vital Signs Date Time Temp Pulse Resp B/P (MAP) Pulse Ox O2 Delivery O2 Flow Rate FiO2 08/11/17 08:44 73 149/59 08/11/17 07:00 97.7 18 97 Room Air 97.7 08/10/17 15:00 2.0 Labs: Laboratory Tests Test 08/10/17 16:28 08/10/17 20:33 08/11/17 03:12 08/11/17 07:52 Glucose (Fingerstick) 273 mg/dL 233 mg/dL 199 mg/dL White Blood Count 7.2 x10^3/uL Red Blood Count 2.97 x10^6/uL Hemoglobin 8.8 g/dL Hematocrit 26.5 % Mean Corpuscular Volume 89 fL Mean Corpuscular Hemoglobin 30 pg Mean Corpuscular Hemoglobin Concent 33 g/dL Red Cell Distribution Width 16.2 % Platelet Count 148 x10^3/uL Neutrophils (%) (Auto) 74 % Lymphocytes (%) (Auto) 17 % Monocytes (%) (Auto) 6 % Eosinophils (%) (Auto) 3 % Basophils (%) (Auto) 0 % Neutrophils # (Auto) 5.3 x10^3uL Lymphocytes # (Auto) 1.2 x10^3/uL Monocytes # (Auto) 0.4 x10^3/uL Eosinophils # (Auto) 0.2 x10^3/uL Basophils # (Auto) 0.0 x10^3/uL Sodium Level 138 mmol/L Potassium Level 4.5 mmol/L Chloride Level 102 mmol/L Carbon Dioxide Level 32 mmol/L Anion Gap 4 Blood Urea Nitrogen 55 mg/dL Creatinine 2.6 mg/dL Estimated GFR (Cockcroft-Gault) 18.2 Glucose Level 318 mg/dL Calcium Level 7.9 mg/dL Iron Level 48 ug/dL Total Iron Binding Capacity 281 ug/dL Iron Saturation 17 % PE: GEN: NAD LUNGS: diminished HEART: RRR ABD: NABS, S/ND/NT NEURO/PSYCH: A & O 3 A/P: ZAFAR -'scopes yesterday as above w/ reflux, antral erythema, GAVE, and diverticulosis (path pending) -on iron QD + PPI BID CKD, CHF -- Continue same GI-madrid. Some drift in Hgb. ?increase iron to BID TANG SERRA Aug 11, 2017 10:15
[2017-08-11 11:00] VITALS: BP 145/47
--- NOTE | 2017-08-11 11:15 | PDOC ---
CARDIO Progress Notes Date and Time Date of Service 08/11/2017 Time of Evaluation 1045 Subjective Subjective: No Chest Pain, No Palpitations, No Dizziness, Other (mild SOA) Vitals Vitals Vital Signs Date Time Temp Pulse Resp B/P (MAP) Pulse Ox O2 Delivery O2 Flow Rate FiO2 08/11/17 08:44 73 149/59 08/11/17 07:00 97.7 18 97 Room Air 97.7 08/10/17 15:00 2.0 Weight Weight [ ] Laboratory Labs Laboratory Tests Test 08/10/17 16:28 08/10/17 20:33 08/11/17 03:12 08/11/17 07:52 Glucose (Fingerstick) 273 mg/dL (70-99) 233 mg/dL (70-99) 199 mg/dL (70-99) White Blood Count 7.2 x10^3/uL (4.0-11.0) Red Blood Count 2.97 x10^6/uL (3.50-5.40) Hemoglobin 8.8 g/dL (12.0-15.5) Hematocrit 26.5 % (36.0-47.0) Mean Corpuscular Volume 89 fL (79-100) Mean Corpuscular Hemoglobin 30 pg (25-35) Mean Corpuscular Hemoglobin Concent 33 g/dL (31-37) Red Cell Distribution Width 16.2 % (11.5-14.5) Platelet Count 148 x10^3/uL (140-400) Neutrophils (%) (Auto) 74 % (31-73) Lymphocytes (%) (Auto) 17 % (24-48) Monocytes (%) (Auto) 6 % (0-9) Eosinophils (%) (Auto) 3 % (0-3) Basophils (%) (Auto) 0 % (0-3) Neutrophils # (Auto) 5.3 x10^3uL (1.8-7.7) Lymphocytes # (Auto) 1.2 x10^3/uL (1.0-4.8) Monocytes # (Auto) 0.4 x10^3/uL (0.0-1.1) Eosinophils # (Auto) 0.2 x10^3/uL (0.0-0.7) Basophils # (Auto) 0.0 x10^3/uL (0.0-0.2) Sodium Level 138 mmol/L (136-145) Potassium Level 4.5 mmol/L (3.5-5.1) Chloride Level 102 mmol/L (98-107) Carbon Dioxide Level 32 mmol/L (21-32) Anion Gap 4 (6-14) Blood Urea Nitrogen 55 mg/dL (7-20) Creatinine 2.6 mg/dL (0.6-1.0) Estimated GFR (Cockcroft-Gault) 18.2 Glucose Level 318 mg/dL (70-99) Calcium Level 7.9 mg/dL (8.5-10.1) Iron Level 48 ug/dL (50-170) Total Iron Binding Capacity 281 ug/dL (250-450) Iron Saturation 17 % (15-34) Review of Systems Constitutional: yes: malaise, weakness Gastrointestional: Yes: nausea Physical Exam HEENT: Neck Supple W Full Motion, Other (JVD) Chest: Symmetric LUNGS: Other (upper rhonchi, faint basilar crackles) Heart: S1S2, RRR (SR) Abdomen: Soft N/T Extremities: No Calf Tenderness, Other (1-2+ bilateral LE pitting edema) Neurology: alert, oriented, follow commands Assessment Assessment 1. Acute on chronic diastolic CHF: refractory likely from bowel prep with last lasix dose on the with hypoglycemic episodes 2. Accelerated HTN: better cotrolled 4. Abdominal pain with hx of PUD: S/P EGD/colonoscopy with reflux esophagitis/ diverticulosis per GI 5. Anemia: Hgb trending down again at 8.8, post blood transfusion, possibly hemodilutional in relation to fluid overload. 6. Hypothyroidism 7. JADE on CKD3: renal function worsening. Cr. 2.6 8. DM2: uncontrolled. per PCP Recommendations 1. Will resume IV lasix. PCXR today. Consider establishing nephrology follow up. 2. Continue to hold celebrex and lisinopril. 3. Continue secondary prevention. ANA MARÍA HOUSE APRN Aug 11, 2017 11:15
--- NOTE | 2017-08-11 11:39 | RAD ---
EXAM: CHEST 1 VIEW History: Congestive heart failure, fluid retention COMPARISON: 08/06/2017 TECHNIQUE: Single portable radiograph of the chest FINDINGS: The cardiac silhouette is unremarkable. Minimal prominent appearing bilateral interstitial lung markings likely mild congestive changes grossly similar to prior exam. Trace left pleural effusion. Impression: Mild congestive changes similar to prior exam. Trace left pleural effusion.
--- NOTE | 2017-08-11 12:23 | PDOC2 ---
CONSULT Date of Consult Date of Consult DATE: 08/11/17 TIME: 12:16 Reason for Consult Reason for Consult: JADE Referring Physician Referring Physician: NADEEM Identification/Chief Complaint Chief Complaint WEAKNESS Problems: Source Source: Chart review, Patient History of Present Illness Reason for Visit: THIS IS A 72 YR OLD ADMITTED WITH WEAKNESS. SHE IS NOTED TO HAVE A HGB OF 6.3. SHE IS UNDERGOING GI EVAL. SHE IS NOTED TO HAVE ZAFAR. NOT EATING MUCH. HER CR IS UP TO 2.6. SHE HAS HAD JADE IN THE PAST BUT HER BASELINE CR IS ABOUT 1.0. SHE HAS RECEIVED PRBC WHILE HERE. NO NEPHROTOXINS NOTED. RENAL SONO DONE IS NEG. WAS ON LASIX LISINOPRIL AND CELEBREX AT HOME Past Medical History Cardiovascular: HTN Pulmonary: No pertinent hx CENTRAL NERVOUS SYSTEM: Periperal neuropathy GI: GERD, Peptic Ulcer disease Heme/Onc: No pertinent hx Hepatobiliary: No pertinent hx Psych: No pertinent hx Musculoskeletal: Osteoarthritis Rheumatologic: No pertinent hx Infectious disease: No pertinent hx Renal/: No pertinent hx Endocrine: Diabetes Past Surgical History Past Surgical History: Hysterectomy, Other (01/23/2015 EGD multiple /DU) Family History Family History: Alzheimer's Disease Social History No ALCOHOL: none Drugs: None Lives: with Family Current Problem List Problem List Problems Medical Problems: (1) Acute on chronic congestive heart failure Status: Acute (2) Acute renal failure Status: Acute (3) Chest pain Status: Acute (4) Malignant hypertension Status: Acute Current Medications Current Medications Current Medications Aspirin (Children'S Aspirin) 324 mg 1X ONCE PO Last administered on 08/06/17 13:10; Start 08/06/17 at 13:00; Stop 08/06/17 at 13:01; Status DC Furosemide (Lasix) 40 mg 1X ONCE IV Last administered on 08/06/17 13:10; Start 08/06/17 at 13:00; Stop 08/06/17 at 13:01; Status DC Sodium Chloride 1,000 ml @ 50 mls/hr Q20H IV Last administered on 08/06/17 13 :14; Start 08/06/17 at 12:54; Stop 08/06/17 at 16:20; Status DC Labetalol HCl (Normodyne) 20 mg 1X ONCE IVP Last administered on 08/06/17 13: 21; Start 08/06/17 at 13:00; Stop 08/06/17 at 13:01; Status DC Ondansetron HCl (Zofran) 4 mg PRN Q8HRS PRN IV NAUSEA/VOMITING; Start 08/06/17 at 14:15; Stop 08/07/17 at 14:14; Status DC Labetalol HCl (Normodyne) 20 mg PRN Q2HR PRN IVP HYPERTENSION, SEE COMMENTS; Start 08/06/17 at 14:15 Furosemide (Lasix) 40 mg BID92 IVP Last administered on 08/08/17 08:28; Start 08/07/17 at 09:00; Stop 08/08/17 at 10:01; Status DC Amlodipine Besylate (Norvasc) 10 mg DAILY PO Last administered on 08/11/17 08: 44; Start 08/06/17 at 17:00 Pantoprazole Sodium (Protonix) 40 mg DAILYAC PO ; Start 08/06/17 at 17:30; Status Cancel Buspirone HCl (Buspar) 10 mg BID PO Last administered on 08/11/17 08:43; Start 08/06/17 at 21:00 Ferrous Sulfate (Feosol) 325 mg DAILY PO Last administered on 08/11/17 08:44; Start 08/07/17 at 09:00; Stop 08/11/17 at 11:01; Status DC Glipizide (Glucotrol) 5 mg BIDBFRMEAL PO Last administered on 08/11/17 08:43; Start 08/06/17 at 18:00 Lamotrigine (LaMICtal) 100 mg DAILY PO Last administered on 08/11/17 08:43; Start 08/07/17 at 09:00 Levothyroxine Sodium (Synthroid) 88 mcg DAILY07 PO Last administered on 06:28; Start 08/07/17 at 07:00 Mirtazapine (Remeron) 7.5 mg QHS PO Last administered on 08/10/17 21:18; Start 08/06/17 at 21:00 Pantoprazole Sodium (Protonix) 40 mg BIDAC PO Last administered on 08/11/17 08 :44; Start 08/06/17 at 18:00 Insulin Detemir (Levemir) 10 units QHS SQ Last administered on 08/07/17 20:32 ; Start 08/06/17 at 21:00; Stop 08/08/17 at 18:36; Status DC Multivitamins (Thera M Plus) 1 tab DAILY PO Last administered on 08/11/17 08: 43; Start 08/07/17 at 09:00 Polyethylene Glycol (miraLAX Powder BULK BOTTLE) 238 gm 1X ONCE PO Last administered on 08/08/17 12:37; Start 08/08/17 at 12:00; Stop 08/08/17 at 12:01 ; Status DC Bisacodyl (Dulcolax Tab) 10 mg 1X ONCE PO ; Start 08/07/17 at 14:15; Stop 08/07 at 14:16; Status DC Alprazolam (Xanax) 0.25 mg PRN Q8HRS PRN PO ANXIETY / AGITATION Last administered on 08/10/17 21:18; Start 08/08/17 at 10:15 Throat Lozenges (Cepacol Sore Throat Lozenge) 1 sherry PRN Q2HRS PRN PO SORE THROAT Last administered on 08/10/17 21:22; Start 08/08/17 at 17:00 Insulin Detemir (Levemir) 20 units QHS SQ Last administered on 08/08/17 21:00 ; Start 08/08/17 at 21:00; Stop 08/09/17 at 08:18; Status DC Dextrose (Dextrose 50%-Water Syringe) 25 gm STK-MED ONCE IV ; Start 08/09/17 at 04:20; Stop 08/09/17 at 04:21; Status DC Dextrose (Dextrose 50%-Water Syringe) 25 gm 1X ONCE IV ; Start 08/09/17 at 04: 55; Stop 08/09/17 at 04:56; Status DC Dextrose (Dextrose 50%-Water Syringe) 25 gm PRN Q15MIN PRN IV HYPOGLYCEMIA Last administered on 08/09/17 13:17; Start 08/09/17 at 07:45 Insulin Detemir (Levemir) 10 units QHS SQ Last administered on 08/10/17 21:20 ; Start 08/09/17 at 21:00 Midazolam HCl (Versed) 2 mg PRN 1X PRN IV PRIOR TO PROCEDURE; Start 08/09/17 at 14:00; Stop 08/10/17 at 13:59; Status DC Fentanyl Citrate (Fentanyl 2ml Vial) 25 mcg PRN Q5MIN PRN IV X 2 DOSES FOR PAIN ; Start 08/09/17 at 14:00; Stop 08/10/17 at 13:59; Status DC Fentanyl Citrate (Fentanyl 2ml Vial) 50 mcg PRN Q5MIN PRN IV X 2 DOSES FOR PAIN ; Start 08/09/17 at 14:00; Stop 08/10/17 at 13:59; Status DC Ringer's Solution 1,000 ml @ 125 mls/hr Q8H IV ; Start 08/09/17 at 13:52; Stop 08/09/17 at 16:31; Status DC Lidocaine HCl (Xylocaine-Mpf 1% Vial) 2 ml 1X PRN PRN ID IV START; Start at 14:00; Stop 08/10/17 at 13:59; Status DC Propofol 20 ml @ As Directed STK-MED ONCE IV ; Start 08/09/17 at 14:03; Stop at 14:04; Status DC Lidocaine HCl (Lidocaine Pf 2% Vial) 5 ml STK-MED ONCE .ROUTE ; Start 08/09/17 at 14:04; Stop 08/09/17 at 14:05; Status DC Hydralazine HCl (Apresoline) 10 mg PRN Q4HRS PRN IVP ELEVATED BP, SEE COMMENTS ; Start 08/09/17 at 16:45 Influenza Virus Vaccine Quadrival (Fluarix Quad [id number] Syringe) 0.5 ml ONCE ONCE VAX IM Last administered on 08/11/17 11:11; Start 08/10/17 at 09:00; Stop 08/10/17 at 09:01; Status DC Insulin Aspart (NovoLOG) 1 units 1X ONCE SQ Last administered on 08/09/17 22: 23; Start 08/09/17 at 21:30; Stop 08/09/17 at 21:31; Status DC Benzonatate (Tessalon Perle) 100 mg PRN TID PRN PO COUGH Last administered on 21:19; Start 08/10/17 at 17:30 Furosemide (Lasix) 40 mg DAILY IVP ; Start 08/11/17 at 09:00 Ferrous Sulfate (Feosol) 325 mg BIDWMEALS PO ; Start 08/11/17 at 17:00 Active Scripts Active Synthroid (Levothyroxine Sodium) 88 Mcg Tablet 88 Mcg PO DAILY07 Reported Multivitamins (Multivitamin) 1 Each Tablet 1 Tab PO DAILY Ferrous Sulfate 325 Mg Tablet 325 Mg PO DAILY Melatonin 3 Mg Tablet 3 Mg PO QHS PRN Lamotrigine 100 Mg Tablet 100 Mg PO DAILY Levemir (Insulin Detemir) 100 Unit/1 Ml Vial 10 Unit SQ QHS Furosemide 20 Mg Tablet 20 Mg PO DAILY Buspirone Hcl 10 Mg Tablet 10 Mg PO BID Mirtazapine 15 Mg Tablet 7.5 Mg PO QHS Glipizide 5 Mg Tablet 5 Mg PO BID Celebrex (Celecoxib) 200 Mg Capsule 1 Cap PO QHS Hydrocodone-Apap 5-325 (Hydrocodone Bit/Acetaminophen) 1 Each Tablet 1 Tab PO PRN Q6HRS PRN Pantoprazole Sodium 40 Mg Tablet.dr 1 Tab PO BID Lisinopril 10 Mg Tablet 1 Tab PO DAILY Allergies Allergies: Coded Allergies: No Known Drug Allergies (Unverified , 08/09/17) ROS General: YES: Fatigue, Malaise, Appetite PSYCHOLOGICAL ROS: YES: Anxiety Eyes: Yes Decreased vision HEENT: YES: Heacaches Respiratory: YES: Cough Gastrointestinal: Yes Nausea, Yes Constipation Genitourinary: YES Incontinence Musculoskeletal: Yes Muscular Weakness Neurological: Yes Weakness Skin: Yes Dry Skin Physical Exam General: Alert, Oriented X3, Cooperative, No acute distress HEENT: Atraumatic, PERRLA Lungs: Clear to auscultation Heart: Regular rate Abdomen: Normal bowel sounds, Soft, No tenderness Extremities: No clubbing, No cyanosis Skin: No rashes Neuro: Normal speech, Cranial nerves 3-12 NL Psych/Mental Status: Mental status NL, Mood NL MUSCULOSKELETAL: No deformity, No swelling Vitals VITALS Vital Signs Date Time Temp Pulse Resp B/P (MAP) Pulse Ox O2 Delivery O2 Flow Rate FiO2 08/11/17 11:00 98.3 69 18 145/47 (79) 95 Room Air 98.3 08/10/17 15:00 2.0 Labs Labs Laboratory Tests Test 08/09/17 13:10 08/09/17 13:49 08/09/17 16:07 08/09/17 20:59 Glucose (Fingerstick) 62 mg/dL (70-99) 135 mg/dL (70-99) 85 mg/dL (70-99) 341 mg/dL (70-99) Test 08/10/17 04:20 08/10/17 07:08 08/10/17 10:10 08/10/17 16:28 White Blood Count 6.7 x10^3/uL (4.0-11.0) Red Blood Count 3.26 x10^6/uL (3.50-5.40) Hemoglobin 9.9 g/dL (12.0-15.5) Hematocrit 29.2 % (36.0-47.0) Mean Corpuscular Volume 90 fL (79-100) Mean Corpuscular Hemoglobin 30 pg (25-35) Mean Corpuscular Hemoglobin Concent 34 g/dL (31-37) Red Cell Distribution Width 15.8 % (11.5-14.5) Platelet Count 161 x10^3/uL (140-400) Neutrophils (%) (Auto) 72 % (31-73) Lymphocytes (%) (Auto) 19 % (24-48) Monocytes (%) (Auto) 5 % (0-9) Eosinophils (%) (Auto) 3 % (0-3) Basophils (%) (Auto) 1 % (0-3) Neutrophils # (Auto) 4.8 x10^3uL (1.8-7.7) Lymphocytes # (Auto) 1.3 x10^3/uL (1.0-4.8) Monocytes # (Auto) 0.3 x10^3/uL (0.0-1.1) Eosinophils # (Auto) 0.2 x10^3/uL (0.0-0.7) Basophils # (Auto) 0.0 x10^3/uL (0.0-0.2) Sodium Level 140 mmol/L (136-145) Potassium Level 4.1 mmol/L (3.5-5.1) Chloride Level 103 mmol/L (98-107) Carbon Dioxide Level 31 mmol/L (21-32) Anion Gap 6 (6-14) Blood Urea Nitrogen 44 mg/dL (7-20) Creatinine 2.0 mg/dL (0.6-1.0) Estimated GFR (Cockcroft-Gault) 24.6 Glucose Level 248 mg/dL (70-99) Calcium Level 8.1 mg/dL (8.5-10.1) Glucose (Fingerstick) 136 mg/dL (70-99) 134 mg/dL (70-99) 273 mg/dL (70-99) Test 08/10/17 20:33 08/11/17 03:12 08/11/17 07:52 08/11/17 10:59 Glucose (Fingerstick) 233 mg/dL (70-99) 199 mg/dL (70-99) 222 mg/dL (70-99) White Blood Count 7.2 x10^3/uL (4.0-11.0) Red Blood Count 2.97 x10^6/uL (3.50-5.40) Hemoglobin 8.8 g/dL (12.0-15.5) Hematocrit 26.5 % (36.0-47.0) Mean Corpuscular Volume 89 fL (79-100) Mean Corpuscular Hemoglobin 30 pg (25-35) Mean Corpuscular Hemoglobin Concent 33 g/dL (31-37) Red Cell Distribution Width 16.2 % (11.5-14.5) Platelet Count 148 x10^3/uL (140-400) Neutrophils (%) (Auto) 74 % (31-73) Lymphocytes (%) (Auto) 17 % (24-48) Monocytes (%) (Auto) 6 % (0-9) Eosinophils (%) (Auto) 3 % (0-3) Basophils (%) (Auto) 0 % (0-3) Neutrophils # (Auto) 5.3 x10^3uL (1.8-7.7) Lymphocytes # (Auto) 1.2 x10^3/uL (1.0-4.8) Monocytes # (Auto) 0.4 x10^3/uL (0.0-1.1) Eosinophils # (Auto) 0.2 x10^3/uL (0.0-0.7) Basophils # (Auto) 0.0 x10^3/uL (0.0-0.2) Sodium Level 138 mmol/L (136-145) Potassium Level 4.5 mmol/L (3.5-5.1) Chloride Level 102 mmol/L (98-107) Carbon Dioxide Level 32 mmol/L (21-32) Anion Gap 4 (6-14) Blood Urea Nitrogen 55 mg/dL (7-20) Creatinine 2.6 mg/dL (0.6-1.0) Estimated GFR (Cockcroft-Gault) 18.2 Glucose Level 318 mg/dL (70-99) Calcium Level 7.9 mg/dL (8.5-10.1) Iron Level 48 ug/dL (50-170) Total Iron Binding Capacity 281 ug/dL (250-450) Iron Saturation 17 % (15-34) Laboratory Tests Test 08/10/17 16:28 08/10/17 20:33 08/11/17 03:12 08/11/17 07:52 Glucose (Fingerstick) 273 mg/dL (70-99) 233 mg/dL (70-99) 199 mg/dL (70-99) White Blood Count 7.2 x10^3/uL (4.0-11.0) Red Blood Count 2.97 x10^6/uL (3.50-5.40) Hemoglobin 8.8 g/dL (12.0-15.5) Hematocrit 26.5 % (36.0-47.0) Mean Corpuscular Volume 89 fL (79-100) Mean Corpuscular Hemoglobin 30 pg (25-35) Mean Corpuscular Hemoglobin Concent 33 g/dL (31-37) Red Cell Distribution Width 16.2 % (11.5-14.5) Platelet Count 148 x10^3/uL (140-400) Neutrophils (%) (Auto) 74 % (31-73) Lymphocytes (%) (Auto) 17 % (24-48) Monocytes (%) (Auto) 6 % (0-9) Eosinophils (%) (Auto) 3 % (0-3) Basophils (%) (Auto) 0 % (0-3) Neutrophils # (Auto) 5.3 x10^3uL (1.8-7.7) Lymphocytes # (Auto) 1.2 x10^3/uL (1.0-4.8) Monocytes # (Auto) 0.4 x10^3/uL (0.0-1.1) Eosinophils # (Auto) 0.2 x10^3/uL (0.0-0.7) Basophils # (Auto) 0.0 x10^3/uL (0.0-0.2) Sodium Level 138 mmol/L (136-145) Potassium Level 4.5 mmol/L (3.5-5.1) Chloride Level 102 mmol/L (98-107) Carbon Dioxide Level 32 mmol/L (21-32) Anion Gap 4 (6-14) Blood Urea Nitrogen 55 mg/dL (7-20) Creatinine 2.6 mg/dL (0.6-1.0) Estimated GFR (Cockcroft-Gault) 18.2 Glucose Level 318 mg/dL (70-99) Calcium Level 7.9 mg/dL (8.5-10.1) Iron Level 48 ug/dL (50-170) Total Iron Binding Capacity 281 ug/dL (250-450) Iron Saturation 17 % (15-34) Test 08/11/17 10:59 Glucose (Fingerstick) 222 mg/dL (70-99) Assessment/Plan Assessment/Plan IMP JADE-CR OF 2.6. BASELINE CR IS 1.0 ANEMIA DEHYDRATION PLAN RENAL SONO NEG PRBC NEEDED IVF'S ENC PO STOP LASIX AVOID RESUMING HOME MEDS CELEBREX AND LISINOPRIL LABS IN AM CARMEN PAGE MD Aug 11, 2017 12:23
[2017-08-11] MEDS: IV NORMAL SALINE 1000ML BAG 1,000 ML IV SCH (13:02)
--- NOTE | 2017-08-11 13:17 | PATHOLOGY ---
PATHOLOGY REPORT * * * * * * * * FINAL DIAGNOSIS: A. Small bowel, duodenum, biopsy: - Mild chronic inflammation. - Normal villous architecture. B. Stomach, antrum, biopsy: - Chronic superficial gastritis, mild. - No evidence of Helicobacter pylori on controlled immunoperoxidase stain. ([facility]:mgr; 08/11/2017) REPORT ELECTRONICALLY SIGNED BY: Bela Prabhakar M.D. DATE/TIME: 08/11/2017 13:16 * * * * * * * * GROSS PATHOLOGY: A. Received in formalin labeled "Xiomara Albrecht, duodenal biopsy," are multiple segments of wahl soft tissue measuring from less than 0.1 up to 0.4 cm in maximum dimension. The specimen is submitted entirely in cassette A1. B. Received in formalin labeled "antral biopsy," are two segments of wahl soft tissue measuring 0.1 and 0.3 cm in maximum dimension. The specimen is submitted entirely in cassette B1. An immunoperoxidase stain for H. Pylori will be obtained. ([facility]; 08/10/17) INITIAL CPT CODE(S): A; 96460 B; 98217, 69830 Professional services [place] [facility] [place] [address] Technical services performed by [facility] at [address] [place] [address], [facility] [address] [address]. SPECIMEN(S) RECEIVED: A.Duodenal biopsy B.Antral biopsy CLINICAL HISTORY: Anemia PATIENT: XIOMARA ALBRECHT /AGE: 3 1945 (Age: 72) PATIENT #: [id number] ALT CASE #: SPECIMEN COLLECTION DATE: 08/09/2017 SPECIMEN RECEIVED DATE: 08/10/2017 [facility] - [address] [place] [address] - PHONE: [phone] * * * END OF REPORT * * *
[2017-08-11 15:00] VITALS: BP 139/42
[2017-08-11] MEDS: BENZOCAINE/MENTHOL LOZENGE. PO PRN (16:17)
[2017-08-11 19:13] VITALS: BP 140/54
[2017-08-11] MEDS: MIRTAZAPINE 7.5 MG TABLET. PO SCH (21:04)
[2017-08-11] MEDS: INSULIN DETEMIR 300 UNITS/3 ML INSULN.PEN. SQ SCH (21:07)
[2017-08-11 22:13] VITALS: BP 151/67
[2017-08-12] MEDS: IV NORMAL SALINE 1000ML BAG 1,000 ML IV SCH (02:15)
[2017-08-12 03:46] VITALS: BP 147/67
[2017-08-12] MEDS: LEVOTHYROXINE 88 MCG TABLET PO SCH (06:13)
[2017-08-12 07:00] VITALS: BP 163/56
[2017-08-12 07:13] LABS: CALCIUM 8.7 mg/dL (8.5-10.1); CREATININE 2.3 mg/dL (0.6-1.0); POTASSIUM 4.3 mmol/L (3.5-5.1)
[2017-08-12 07:15] LABS: BASO % 1 % (0-3); EOS % 3 % (0-3); HEMATOCRIT 27.5 % (36.0-47.0); HEMOGLOBIN 9.5 g/dL (12.0-15.5); LYMPH # 0.5 x10^3/uL (1.0-4.8); LYMPH % 9 % (24-48); MEAN CORPUSCULAR HEMOGLOBIN 30 pg (25-35); MEAN CORPUSCULAR HGB CONC 35 g/dL (31-37); MEAN CORPUSCULAR VOLUME 88 fL (79-100); MONO % 7 % (0-9); NEUT % 80 % (31-73); PLATELET COUNT 133 x10^3/uL (140-400); RED BLOOD COUNT 3.14 x10^6/uL (3.50-5.40); RED CELL DISTRIBUTION WIDTH 16.2 % (11.5-14.5); WHITE BLOOD COUNT 5.7 x10^3/uL (4.0-11.0)
[2017-08-12] MEDS: glipiZIDE 5 MG TABLET PO SCH ×2 (07:54→17:19)
[2017-08-12] MEDS: PANTOPRAZOLE 40 MG TABLET.DR. PO SCH ×2 (07:54→17:19)
[2017-08-12] MEDS: BENZOCAINE/MENTHOL LOZENGE. PO PRN ×3 (07:54→19:31)
--- NOTE | 2017-08-12 08:42 | PDOC ---
GENERAL General: hb 9.5 and creatinine down to 2.3. help renal appreciated. home today with close outpatient fu. see discharge summary. Problems: VITAL SIGNS Vital Signs: Vital Signs Date Time Temp Pulse Resp B/P (MAP) Pulse Ox O2 Delivery O2 Flow Rate FiO2 08/12/17 07:00 98.2 74 18 163/56 (91) 97 Room Air 98.2 ALLERGIES Allergies: Allergies Coded Allergies Type Severity Reaction Last Updated Verified No Known Drug Allergies 08/09/17 No MEDS Medications: Current Medications Medications (Trade) Dose Ordered Sig/Angeles Start Time Stop Time Status Last Admin Dose Admin Alprazolam (Xanax) 0.25 mg PRN Q8HRS PRN 08/08/17 10:15 08/10/17 21:18 0.25 MG Amlodipine Besylate (Norvasc) 10 mg DAILY 08/06/17 17:00 08/11/17 08:44 10 MG Aspirin (Children'S Aspirin) 324 mg 1X ONCE 08/06/17 13:00 08/06/17 13:01 DC 08/06/17 13:10 324 MG Benzonatate (Tessalon Perle) 100 mg PRN TID PRN 08/10/17 17:30 08/10/17 21:19 100 MG Bisacodyl (Dulcolax Tab) 10 mg 1X ONCE 08/07/17 14:15 08/07/17 14:16 DC Buspirone HCl (Buspar) 10 mg BID 08/06/17 21:00 08/11/17 21:04 10 MG Dextrose (Dextrose 50%-Water Syringe) 25 gm PRN Q15MIN PRN 08/09/17 07:45 08/09/17 13:17 25 GM Fentanyl Citrate (Fentanyl 2ml Vial) 50 mcg PRN Q5MIN PRN 08/09/17 14:00 08/10/17 13:59 DC Ferrous Sulfate (Feosol) 325 mg BIDWMEALS 08/11/17 17:00 08/11/17 17:35 325 MG Furosemide (Lasix) 40 mg DAILY 08/11/17 13:00 08/12/17 08:10 DC 08/11/17 13:02 40 MG Glipizide (Glucotrol) 5 mg BIDBFRMEAL 08/06/17 18:00 08/12/17 07:54 5 MG Hydralazine HCl (Apresoline) 10 mg PRN Q4HRS PRN 08/09/17 16:45 Influenza Virus Vaccine Quadrival (Fluarix Quad [id number] Syringe) 0.5 ml ONCE ONCE 08/10/17 09:00 08/10/17 09:01 DC 08/11/17 11:11 0.5 ML Insulin Aspart (NovoLOG) 1 units 1X ONCE 08/09/17 21:30 08/09/17 21:31 DC 08/09/17 22:23 1 UNITS Insulin Detemir (Levemir) 10 units QHS 08/09/17 21:00 08/11/17 21:07 10 UNITS Labetalol HCl (Normodyne) 20 mg PRN Q2HR PRN 08/06/17 14:15 Lamotrigine (LaMICtal) 100 mg DAILY 08/07/17 09:00 08/11/17 08:43 100 MG Levothyroxine Sodium (Synthroid) 88 mcg DAILY07 08/07/17 07:00 08/12/17 06:13 88 MCG Lidocaine HCl (Lidocaine Pf 2% Vial) 5 ml STK-MED ONCE 08/09/17 14:04 08/09/17 14:05 DC Lidocaine HCl (Xylocaine-Mpf 1% Vial) 2 ml 1X PRN PRN 08/09/17 14:00 08/10/17 13:59 DC Midazolam HCl (Versed) 2 mg PRN 1X PRN 08/09/17 14:00 08/10/17 13:59 DC Mirtazapine (Remeron) 7.5 mg QHS 08/06/17 21:00 08/11/17 21:04 7.5 MG Multivitamins (Thera M Plus) 1 tab DAILY 08/07/17 09:00 08/11/17 08:43 1 TAB Ondansetron HCl (Zofran) 4 mg PRN Q8HRS PRN 08/06/17 14:15 08/07/17 14:14 DC Pantoprazole Sodium (Protonix) 40 mg BIDAC 08/06/17 18:00 08/12/17 07:54 40 MG Polyethylene Glycol (miraLAX Powder BULK BOTTLE) 238 gm 1X ONCE 08/08/17 12:00 08/08/17 12:01 DC 08/08/17 12:37 238 GM Propofol 20 ml @ As Directed STK-MED ONCE 08/09/17 14:03 08/09/17 14:04 DC Ringer's Solution 1,000 ml @ 125 mls/hr Q8H 08/09/17 13:52 08/09/17 16:31 DC Sodium Chloride 1,000 ml @ 75 mls/hr [id number] 08/11/17 12:30 08/12/17 02:15 75 MLS/HR Throat Lozenges (Cepacol Sore Throat Lozenge) 1 benita PRN Q2HRS PRN 08/08/17 17:00 08/12/17 07:54 1 [facility]ITA [facility] Lab: Laboratory Tests Test 08/11/17 10:59 08/11/17 16:23 08/11/17 20:59 08/12/17 04:45 Glucose (Fingerstick) 222 mg/dL (70-99) 241 mg/dL (70-99) 244 mg/dL (70-99) White Blood Count 5.7 x10^3/uL (4.0-11.0) Red Blood Count 3.14 x10^6/uL (3.50-5.40) Hemoglobin 9.5 g/dL (12.0-15.5) Hematocrit 27.5 % (36.0-47.0) Mean Corpuscular Volume 88 fL (79-100) Mean Corpuscular Hemoglobin 30 pg (25-35) Mean Corpuscular Hemoglobin Concent 35 g/dL (31-37) Red Cell Distribution Width 16.2 % (11.5-14.5) Platelet Count 133 x10^3/uL (140-400) Neutrophils (%) (Auto) 80 % (31-73) Lymphocytes (%) (Auto) 9 % (24-48) Monocytes (%) (Auto) 7 % (0-9) Eosinophils (%) (Auto) 3 % (0-3) Basophils (%) (Auto) 1 % (0-3) Neutrophils # (Auto) 4.6 x10^3uL (1.8-7.7) Lymphocytes # (Auto) 0.5 x10^3/uL (1.0-4.8) Monocytes # (Auto) 0.4 x10^3/uL (0.0-1.1) Eosinophils # (Auto) 0.2 x10^3/uL (0.0-0.7) Basophils # (Auto) 0.0 x10^3/uL (0.0-0.2) Sodium Level 139 mmol/L (136-145) Potassium Level 4.3 mmol/L (3.5-5.1) Chloride Level 102 mmol/L (98-107) Carbon Dioxide Level 29 mmol/L (21-32) Anion Gap 8 (6-14) Blood Urea Nitrogen 62 mg/dL (7-20) Creatinine 2.3 mg/dL (0.6-1.0) Estimated GFR (Cockcroft-Gault) 21.0 Glucose Level 173 mg/dL (70-99) Calcium Level 8.7 mg/dL (8.5-10.1) Test 08/12/17 07:20 Glucose (Fingerstick) 106 mg/dL (70-99) HOUSTON SILVER MD Aug 12, 2017 08:42
--- NOTE | 2017-08-12 09:04 | PDOC ---
GENERAL General: I have done complete med rec with patient and son and no reason to do further. Problems: VITAL SIGNS Vital Signs: Vital Signs Date Time Temp Pulse Resp B/P (MAP) Pulse Ox O2 Delivery O2 Flow Rate FiO2 08/12/17 07:00 98.2 74 18 163/56 (91) 97 Room Air 98.2 ALLERGIES Allergies: Allergies Coded Allergies Type Severity Reaction Last Updated Verified No Known Drug Allergies 08/09/17 No MEDS Medications: Current Medications Medications (Trade) Dose Ordered Sig/Angeles Start Time Stop Time Status Last Admin Dose Admin Alprazolam (Xanax) 0.25 mg PRN Q8HRS PRN 08/08/17 10:15 08/10/17 21:18 0.25 MG Amlodipine Besylate (Norvasc) 10 mg DAILY 08/06/17 17:00 08/11/17 08:44 10 MG Aspirin (Children'S Aspirin) 324 mg 1X ONCE 08/06/17 13:00 08/06/17 13:01 DC 08/06/17 13:10 324 MG Benzonatate (Tessalon Perle) 100 mg PRN TID PRN 08/10/17 17:30 08/10/17 21:19 100 MG Bisacodyl (Dulcolax Tab) 10 mg 1X ONCE 08/07/17 14:15 08/07/17 14:16 DC Buspirone HCl (Buspar) 10 mg BID 08/06/17 21:00 08/11/17 21:04 10 MG Dextrose (Dextrose 50%-Water Syringe) 25 gm PRN Q15MIN PRN 08/09/17 07:45 08/09/17 13:17 25 GM Fentanyl Citrate (Fentanyl 2ml Vial) 50 mcg PRN Q5MIN PRN 08/09/17 14:00 08/10/17 13:59 DC Ferrous Sulfate (Feosol) 325 mg BIDWMEALS 08/11/17 17:00 08/11/17 17:35 325 MG Furosemide (Lasix) 40 mg DAILY 08/11/17 13:00 08/12/17 08:10 DC 08/11/17 13:02 40 MG Glipizide (Glucotrol) 5 mg BIDBFRMEAL 08/06/17 18:00 08/12/17 07:54 5 MG Hydralazine HCl (Apresoline) 10 mg PRN Q4HRS PRN 08/09/17 16:45 Influenza Virus Vaccine Quadrival (Fluarix Quad [id number] Syringe) 0.5 ml ONCE ONCE 08/10/17 09:00 08/10/17 09:01 DC 08/11/17 11:11 0.5 ML Insulin Aspart (NovoLOG) 1 units 1X ONCE 08/09/17 21:30 08/09/17 21:31 DC 08/09/17 22:23 1 UNITS Insulin Detemir (Levemir) 10 units QHS 08/09/17 21:00 08/11/17 21:07 10 UNITS Labetalol HCl (Normodyne) 20 mg PRN Q2HR PRN 08/06/17 14:15 Lamotrigine (LaMICtal) 100 mg DAILY 08/07/17 09:00 08/11/17 08:43 100 MG Levothyroxine Sodium (Synthroid) 88 mcg DAILY07 08/07/17 07:00 08/12/17 06:13 88 MCG Lidocaine HCl (Lidocaine Pf 2% Vial) 5 ml STK-MED ONCE 08/09/17 14:04 08/09/17 14:05 DC Lidocaine HCl (Xylocaine-Mpf 1% Vial) 2 ml 1X PRN PRN 08/09/17 14:00 08/10/17 13:59 DC Midazolam HCl (Versed) 2 mg PRN 1X PRN 08/09/17 14:00 08/10/17 13:59 DC Mirtazapine (Remeron) 7.5 mg QHS 08/06/17 21:00 08/11/17 21:04 7.5 MG Multivitamins (Thera M Plus) 1 tab DAILY 08/07/17 09:00 08/11/17 08:43 1 TAB Ondansetron HCl (Zofran) 4 mg PRN Q8HRS PRN 08/06/17 14:15 08/07/17 14:14 DC Pantoprazole Sodium (Protonix) 40 mg BIDAC 08/06/17 18:00 08/12/17 07:54 40 MG Polyethylene Glycol (miraLAX Powder BULK BOTTLE) 238 gm 1X ONCE 08/08/17 12:00 08/08/17 12:01 DC 08/08/17 12:37 238 GM Propofol 20 ml @ As Directed STK-MED ONCE 08/09/17 14:03 08/09/17 14:04 DC Ringer's Solution 1,000 ml @ 125 mls/hr Q8H 08/09/17 13:52 08/09/17 16:31 DC Sodium Chloride 1,000 ml @ 75 mls/hr [id number] 08/11/17 12:30 08/12/17 02:15 75 MLS/HR Throat Lozenges (Cepacol Sore Throat Lozenge) 1 benita PRN Q2HRS PRN 08/08/17 17:00 08/12/17 07:54 1 [facility] Lab: Laboratory Tests Test 08/11/17 10:59 08/11/17 16:23 08/11/17 20:59 08/12/17 04:45 Glucose (Fingerstick) 222 mg/dL (70-99) 241 mg/dL (70-99) 244 mg/dL (70-99) White Blood Count 5.7 x10^3/uL (4.0-11.0) Red Blood Count 3.14 x10^6/uL (3.50-5.40) Hemoglobin 9.5 g/dL (12.0-15.5) Hematocrit 27.5 % (36.0-47.0) Mean Corpuscular Volume 88 fL (79-100) Mean Corpuscular Hemoglobin 30 pg (25-35) Mean Corpuscular Hemoglobin Concent 35 g/dL (31-37) Red Cell Distribution Width 16.2 % (11.5-14.5) Platelet Count 133 x10^3/uL (140-400) Neutrophils (%) (Auto) 80 % (31-73) Lymphocytes (%) (Auto) 9 % (24-48) Monocytes (%) (Auto) 7 % (0-9) Eosinophils (%) (Auto) 3 % (0-3) Basophils (%) (Auto) 1 % (0-3) Neutrophils # (Auto) 4.6 x10^3uL (1.8-7.7) Lymphocytes # (Auto) 0.5 x10^3/uL (1.0-4.8) Monocytes # (Auto) 0.4 x10^3/uL (0.0-1.1) Eosinophils # (Auto) 0.2 x10^3/uL (0.0-0.7) Basophils # (Auto) 0.0 x10^3/uL (0.0-0.2) Sodium Level 139 mmol/L (136-145) Potassium Level 4.3 mmol/L (3.5-5.1) Chloride Level 102 mmol/L (98-107) Carbon Dioxide Level 29 mmol/L (21-32) Anion Gap 8 (6-14) Blood Urea Nitrogen 62 mg/dL (7-20) Creatinine 2.3 mg/dL (0.6-1.0) Estimated GFR (Cockcroft-Gault) 21.0 Glucose Level 173 mg/dL (70-99) Calcium Level 8.7 mg/dL (8.5-10.1) Test 08/12/17 07:20 Glucose (Fingerstick) 106 mg/dL (70-99) HOUSTON SILVER MD Aug 12, 2017 09:04
[2017-08-12] MEDS: MULTIVITAMIN with MINERAL TABLET. PO SCH (09:37)
[2017-08-12] MEDS: busPIRone 10 MG TABLET. PO SCH ×2 (09:37→20:53)
[2017-08-12] MEDS: amLODIPine BESYLATE 10 MG TABLET PO SCH (09:38)
[2017-08-12] MEDS: FERROUS SULFATE 325 MG TABLET. PO SCH ×2 (09:38→17:19)
[2017-08-12] MEDS: lamoTRIgine 100 MG TABLET. PO SCH (09:38)
--- NOTE | 2017-08-12 10:23 | PDOC ---
Subjective: Subjective: No GI complaints. Objective: Objective: Per RN - possible DC today. Vital Signs: Vital Signs Date Time Temp Pulse Resp B/P (MAP) Pulse Ox O2 Delivery O2 Flow Rate FiO2 08/12/17 09:38 74 163/56 08/12/17 07:00 98.2 18 97 Room Air 98.2 Labs: Laboratory Tests Test 08/11/17 10:59 08/11/17 16:23 08/11/17 20:59 08/12/17 04:45 Glucose (Fingerstick) 222 mg/dL 241 mg/dL 244 mg/dL White Blood Count 5.7 x10^3/uL Red Blood Count 3.14 x10^6/uL Hemoglobin 9.5 g/dL Hematocrit 27.5 % Mean Corpuscular Volume 88 fL Mean Corpuscular Hemoglobin 30 pg Mean Corpuscular Hemoglobin Concent 35 g/dL Red Cell Distribution Width 16.2 % Platelet Count 133 x10^3/uL Neutrophils (%) (Auto) 80 % Lymphocytes (%) (Auto) 9 % Monocytes (%) (Auto) 7 % Eosinophils (%) (Auto) 3 % Basophils (%) (Auto) 1 % Neutrophils # (Auto) 4.6 x10^3uL Lymphocytes # (Auto) 0.5 x10^3/uL Monocytes # (Auto) 0.4 x10^3/uL Eosinophils # (Auto) 0.2 x10^3/uL Basophils # (Auto) 0.0 x10^3/uL Sodium Level 139 mmol/L Potassium Level 4.3 mmol/L Chloride Level 102 mmol/L Carbon Dioxide Level 29 mmol/L Anion Gap 8 Blood Urea Nitrogen 62 mg/dL Creatinine 2.3 mg/dL Estimated GFR (Cockcroft-Gault) 21.0 Glucose Level 173 mg/dL Calcium Level 8.7 mg/dL Test 08/12/17 07:20 Glucose (Fingerstick) 106 mg/dL Imaging: CXR 08/11/17 Impression: Mild congestive changes similar to prior exam. Trace left pleural effusion. PE: GEN: NAD, up to chair LUNGS: clear HEART: RRR ABD: soft, non-tender NEURO/PSYCH: A & O 3 A/P: ZAFAR -EGD/colon this week w/ reflux, antral erythema, GAVE, and diverticulosis (path pending) -on iron QD + PPI BID -- Continue iron BID-TID + PPI. Consider APC later if needed. TANG SERRA Aug 12, 2017 10:23
[2017-08-12 11:00] VITALS: BP 150/64
--- NOTE | 2017-08-12 11:34 | PDOC ---
Renal-Progress Notes Subjective Notes Notes FEELS WELL, CANNOT LAY FLAT DUE TO SOB History of Present Illness Hx of present illness STABLE Vitals Vitals Vital Signs Date Time Temp Pulse Resp B/P (MAP) Pulse Ox O2 Delivery O2 Flow Rate FiO2 08/12/17 09:38 74 163/56 08/12/17 07:00 98.2 18 97 Room Air 98.2 Weight Weight [ ] Labs Labs Laboratory Tests Test 08/11/17 16:23 08/11/17 20:59 08/12/17 04:45 08/12/17 07:20 Glucose (Fingerstick) 241 mg/dL (70-99) 244 mg/dL (70-99) 106 mg/dL (70-99) White Blood Count 5.7 x10^3/uL (4.0-11.0) Red Blood Count 3.14 x10^6/uL (3.50-5.40) Hemoglobin 9.5 g/dL (12.0-15.5) Hematocrit 27.5 % (36.0-47.0) Mean Corpuscular Volume 88 fL (79-100) Mean Corpuscular Hemoglobin 30 pg (25-35) Mean Corpuscular Hemoglobin Concent 35 g/dL (31-37) Red Cell Distribution Width 16.2 % (11.5-14.5) Platelet Count 133 x10^3/uL (140-400) Neutrophils (%) (Auto) 80 % (31-73) Lymphocytes (%) (Auto) 9 % (24-48) Monocytes (%) (Auto) 7 % (0-9) Eosinophils (%) (Auto) 3 % (0-3) Basophils (%) (Auto) 1 % (0-3) Neutrophils # (Auto) 4.6 x10^3uL (1.8-7.7) Lymphocytes # (Auto) 0.5 x10^3/uL (1.0-4.8) Monocytes # (Auto) 0.4 x10^3/uL (0.0-1.1) Eosinophils # (Auto) 0.2 x10^3/uL (0.0-0.7) Basophils # (Auto) 0.0 x10^3/uL (0.0-0.2) Sodium Level 139 mmol/L (136-145) Potassium Level 4.3 mmol/L (3.5-5.1) Chloride Level 102 mmol/L (98-107) Carbon Dioxide Level 29 mmol/L (21-32) Anion Gap 8 (6-14) Blood Urea Nitrogen 62 mg/dL (7-20) Creatinine 2.3 mg/dL (0.6-1.0) Estimated GFR (Cockcroft-Gault) 21.0 Glucose Level 173 mg/dL (70-99) Calcium Level 8.7 mg/dL (8.5-10.1) Review of Systems Constitutional: yes: malaise, weakness Pulmonary: Yes dyspnea Cardiovascular: Yes no symptom reported Gastrointestional: Yes: nausea Musculoskeletal: Yes: muscle stiffness Skin: Yes no symptom reported Psychiatric/Neurological: Yes: no symptom reported Physical Exam General Appearance: no apparent distress Skin: warm Respiratory: decreased breath sounds Heart: S1S2 Abdomen: soft, bowel sounds present Genitourinary: bladder flat Extremities: no edema, atrophy Neurology: alert, oriented, follow commands Assessment Assessment IMP JADE-BETTER WITH CR OF 2.3 BASELINE CR IS 1.0 BUT STILL HAS CKD STAGE 3 HYPERVOLEMIA WITH CHRONIC CHF PLAN STOP IVF'S RESUME LASIX D/W CARDIOLOGY LABS IN AM BLADDER SCAN NEG FOR RETENTION NEED ACCURATE I/O'S CARMEN PAGE MD Aug 12, 2017 11:34
--- NOTE | 2017-08-12 11:36 | PDOC ---
CARDIO Progress Notes Date and Time Date of Service 08/12/2017 Time of Evaluation 1200 Subjective Subjective: No Chest Pain, No shortness of breath, No Palpitations, No Dizziness, Other (feels good, offering me food, ambulatory without difficulty) Vitals Vitals Vital Signs Date Time Temp Pulse Resp B/P (MAP) Pulse Ox O2 Delivery O2 Flow Rate FiO2 08/12/17 09:38 74 163/56 08/12/17 07:00 98.2 18 97 Room Air 98.2 Weight Weight [ ] Laboratory Labs Laboratory Tests Test 08/11/17 16:23 08/11/17 20:59 08/12/17 04:45 08/12/17 07:20 Glucose (Fingerstick) 241 mg/dL (70-99) 244 mg/dL (70-99) 106 mg/dL (70-99) White Blood Count 5.7 x10^3/uL (4.0-11.0) Red Blood Count 3.14 x10^6/uL (3.50-5.40) Hemoglobin 9.5 g/dL (12.0-15.5) Hematocrit 27.5 % (36.0-47.0) Mean Corpuscular Volume 88 fL (79-100) Mean Corpuscular Hemoglobin 30 pg (25-35) Mean Corpuscular Hemoglobin Concent 35 g/dL (31-37) Red Cell Distribution Width 16.2 % (11.5-14.5) Platelet Count 133 x10^3/uL (140-400) Neutrophils (%) (Auto) 80 % (31-73) Lymphocytes (%) (Auto) 9 % (24-48) Monocytes (%) (Auto) 7 % (0-9) Eosinophils (%) (Auto) 3 % (0-3) Basophils (%) (Auto) 1 % (0-3) Neutrophils # (Auto) 4.6 x10^3uL (1.8-7.7) Lymphocytes # (Auto) 0.5 x10^3/uL (1.0-4.8) Monocytes # (Auto) 0.4 x10^3/uL (0.0-1.1) Eosinophils # (Auto) 0.2 x10^3/uL (0.0-0.7) Basophils # (Auto) 0.0 x10^3/uL (0.0-0.2) Sodium Level 139 mmol/L (136-145) Potassium Level 4.3 mmol/L (3.5-5.1) Chloride Level 102 mmol/L (98-107) Carbon Dioxide Level 29 mmol/L (21-32) Anion Gap 8 (6-14) Blood Urea Nitrogen 62 mg/dL (7-20) Creatinine 2.3 mg/dL (0.6-1.0) Estimated GFR (Cockcroft-Gault) 21.0 Glucose Level 173 mg/dL (70-99) Calcium Level 8.7 mg/dL (8.5-10.1) Review of Systems Constitutional: yes: malaise, weakness Gastrointestional: Yes: nausea Physical Exam HEENT: Neck Supple W Full Motion, Other (JVD) Chest: Symmetric LUNGS: Other (upper rhonchi, faint basilar crackles) Heart: S1S2, RRR (SR) Abdomen: Soft N/T Extremities: No Calf Tenderness, Other (1-2+ bilateral LE pitting edema) Neurology: alert, oriented, follow commands Assessment Assessment 1. Acute on chronic diastolic CHF: compensated 2. Accelerated HTN: better controlled 4. Abdominal pain with hx of PUD: S/P EGD/colonoscopy with reflux esophagitis/ diverticulosis per GI 5. Anemia: Hgb stable at 9.5 6. Hypothyroidism 7. JADE on CKD3: stable per nephrology 8. DM2: uncontrolled. per PCP Recommendations 1. Continue to hold celebrex and lisinopril. 2. Continue secondary prevention. Continue with norvasc, Imdur. Hydralazine IV PRN. 3. F/U in office in 4 weeks 4. Discussed home BP, weight monitoring, and to call for any significant deviation from parameters. 5. Avoid hypoglycemic episodes. ANA MARÍA HOUSE APRN Aug 12, 2017 11:36
[2017-08-12] MEDS: FUROSEMIDE 40 MG TABLET. PO SCH (11:56)
[2017-08-12 15:00] VITALS: BP 143/52
[2017-08-12] MEDS ORDERED: CARVEDILOL 3.125 MG TABLET. PO SCH (17:00)
[2017-08-12 19:06] VITALS: BP 151/62
[2017-08-12] MEDS: MIRTAZAPINE 7.5 MG TABLET. PO SCH (20:53)
[2017-08-12] MEDS: INSULIN DETEMIR 300 UNITS/3 ML INSULN.PEN. SQ SCH (20:56)
[2017-08-12 22:48] VITALS: BP 149/61
[2017-08-13 02:50] VITALS: BP 155/69
[2017-08-13 05:49] LABS: CALCIUM 8.5 mg/dL (8.5-10.1); CREATININE 2.4 mg/dL (0.6-1.0); POTASSIUM 4.6 mmol/L (3.5-5.1)
[2017-08-13] MEDS: LEVOTHYROXINE 88 MCG TABLET PO SCH (06:39)
[2017-08-13 07:00] VITALS: BP 161/51
--- NOTE | 2017-08-13 08:46 | PDOC ---
GENERAL General: see dictated H&P. Problems: VITAL SIGNS Vital Signs: Vital Signs Date Time Temp Pulse Resp B/P (MAP) Pulse Ox O2 Delivery O2 Flow Rate FiO2 08/13/17 07:00 98.6 81 18 161/51 (87) 98 Room Air 98.6 08/13/17 02:50 2.0 ALLERGIES Allergies: Allergies Coded Allergies Type Severity Reaction Last Updated Verified No Known Drug Allergies 08/09/17 No MEDS Medications: Current Medications Medications (Trade) Dose Ordered Sig/Angeles Start Time Stop Time Status Last Admin Dose Admin Alprazolam (Xanax) 0.25 mg PRN Q8HRS PRN 08/08/17 10:15 08/10/17 21:18 0.25 MG Amlodipine Besylate (Norvasc) 10 mg DAILY 08/06/17 17:00 08/12/17 09:38 10 MG Aspirin (Children'S Aspirin) 324 mg 1X ONCE 08/06/17 13:00 08/06/17 13:01 DC 08/06/17 13:10 324 MG Benzonatate (Tessalon Perle) 100 mg PRN TID PRN 08/10/17 17:30 08/10/17 21:19 100 MG Bisacodyl (Dulcolax Tab) 10 mg 1X ONCE 08/07/17 14:15 08/07/17 14:16 DC Buspirone HCl (Buspar) 10 mg BID 08/06/17 21:00 08/12/17 20:53 10 MG Carvedilol (Coreg) 3.125 mg BIDWMEALS 08/12/17 17:00 08/12/17 17:00 DC Dextrose (Dextrose 50%-Water Syringe) 25 gm PRN Q15MIN PRN 08/09/17 07:45 08/09/17 13:17 25 GM Fentanyl Citrate (Fentanyl 2ml Vial) 50 mcg PRN Q5MIN PRN 08/09/17 14:00 08/10/17 13:59 DC Ferrous Sulfate (Feosol) 325 mg BIDWMEALS 08/11/17 17:00 08/12/17 17:19 325 MG Furosemide (Lasix) 40 mg DAILY 08/12/17 12:00 08/12/17 11:56 40 MG Glipizide (Glucotrol) 5 mg BIDBFRMEAL 08/06/17 18:00 08/12/17 17:19 5 MG Hydralazine HCl (Apresoline) 10 mg PRN Q4HRS PRN 08/09/17 16:45 Influenza Virus Vaccine Quadrival (Fluarix Quad [id number] Syringe) 0.5 ml ONCE ONCE 08/10/17 09:00 08/10/17 09:01 DC 08/11/17 11:11 0.5 ML Insulin Aspart (NovoLOG) 1 units 1X ONCE 08/09/17 21:30 08/09/17 21:31 DC 08/09/17 22:23 1 UNITS Insulin Detemir (Levemir) 10 units QHS 08/09/17 21:00 08/12/17 20:56 10 UNITS Isosorbide Mononitrate (Imdur) 30 mg DAILY 08/13/17 09:00 Labetalol HCl (Normodyne) 20 mg PRN Q2HR PRN 08/06/17 14:15 Lamotrigine (LaMICtal) 100 mg DAILY 08/07/17 09:00 08/12/17 09:38 100 MG Levothyroxine Sodium (Synthroid) 88 mcg DAILY07 08/07/17 07:00 08/13/17 06:39 88 MCG Lidocaine HCl (Lidocaine Pf 2% Vial) 5 ml STK-MED ONCE 08/09/17 14:04 08/09/17 14:05 DC Lidocaine HCl (Xylocaine-Mpf 1% Vial) 2 ml 1X PRN PRN 08/09/17 14:00 08/10/17 13:59 DC Midazolam HCl (Versed) 2 mg PRN 1X PRN 08/09/17 14:00 08/10/17 13:59 DC Mirtazapine (Remeron) 7.5 mg QHS 08/06/17 21:00 08/12/17 20:53 7.5 MG Multivitamins (Thera M Plus) 1 tab DAILY 08/07/17 09:00 08/12/17 09:37 1 TAB Ondansetron HCl (Zofran) 4 mg PRN Q8HRS PRN 08/06/17 14:15 08/07/17 14:14 DC Pantoprazole Sodium (Protonix) 40 mg BIDAC 08/06/17 18:00 08/12/17 17:19 40 MG Polyethylene Glycol (miraLAX Powder BULK BOTTLE) 238 gm 1X ONCE 08/08/17 12:00 08/08/17 12:01 DC 08/08/17 12:37 238 GM Propofol 20 ml @ As Directed STK-MED ONCE 08/09/17 14:03 08/09/17 14:04 DC Ringer's Solution 1,000 ml @ 125 mls/hr Q8H 08/09/17 13:52 08/09/17 16:31 DC Sodium Chloride 1,000 ml @ 75 mls/hr [id number] 08/11/17 12:30 08/12/17 11:31 DC 08/12/17 02:15 75 MLS/HR Throat Lozenges (Cepacol Sore Throat Lozenge) 1 benita PRN Q2HRS PRN 08/08/17 17:00 08/12/17 19:31 1 [facility] Lab: Laboratory Tests Test 08/12/17 11:33 08/12/17 17:05 08/12/17 20:31 08/13/17 03:45 Glucose (Fingerstick) 187 mg/dL (70-99) 311 mg/dL (70-99) 384 mg/dL (70-99) Sodium Level 136 mmol/L (136-145) Potassium Level 4.6 mmol/L (3.5-5.1) Chloride Level 102 mmol/L (98-107) Carbon Dioxide Level 28 mmol/L (21-32) Anion Gap 6 (6-14) Blood Urea Nitrogen 62 mg/dL (7-20) Creatinine 2.4 mg/dL (0.6-1.0) Estimated GFR (Cockcroft-Gault) 20.0 Glucose Level 301 mg/dL (70-99) Calcium Level 8.5 mg/dL (8.5-10.1) Test 08/13/17 08:27 Glucose (Fingerstick) 154 mg/dL (70-99) HOUSTON SILVER MD Aug 13, 2017 08:46
[2017-08-13] MEDS ORDERED: ISOSORBIDE MONONITRATE ER 30 MG TAB.ER.24H PO SCH (09:00)
[2017-08-13] MEDS: PANTOPRAZOLE 40 MG TABLET.DR. PO SCH ×2 (09:27→18:30)
[2017-08-13] MEDS: BENZOCAINE/MENTHOL LOZENGE. PO PRN ×2 (09:28→18:37)
[2017-08-13] MEDS: amLODIPine BESYLATE 10 MG TABLET PO SCH (09:28)
[2017-08-13] MEDS: glipiZIDE 5 MG TABLET PO SCH ×2 (09:28→18:30)
[2017-08-13] MEDS: MULTIVITAMIN with MINERAL TABLET. PO SCH (09:28)
[2017-08-13] MEDS: FERROUS SULFATE 325 MG TABLET. PO SCH ×2 (09:28→18:30)
[2017-08-13] MEDS: busPIRone 10 MG TABLET. PO SCH (09:28)
[2017-08-13] MEDS: FUROSEMIDE 40 MG TABLET. PO SCH (09:29)
[2017-08-13] MEDS: lamoTRIgine 100 MG TABLET. PO SCH (09:29)
[2017-08-13 11:00] VITALS: BP 143/55
--- NOTE | 2017-08-13 12:09 | PDOC ---
Renal-Progress Notes Subjective Notes Notes FEELS WELL, AMBULATING WITH WALKER History of Present Illness Hx of present illness BETTER Vitals Vitals Vital Signs Date Time Temp Pulse Resp B/P (MAP) Pulse Ox O2 Delivery O2 Flow Rate FiO2 08/13/17 09:28 81 161/51 08/13/17 08:00 Room Air 08/13/17 07:00 98.6 18 98 98.6 08/13/17 02:50 2.0 Weight Weight [ ] Labs Labs Laboratory Tests Test 08/12/17 17:05 08/12/17 20:31 08/13/17 03:45 08/13/17 08:27 Glucose (Fingerstick) 311 mg/dL (70-99) 384 mg/dL (70-99) 154 mg/dL (70-99) Sodium Level 136 mmol/L (136-145) Potassium Level 4.6 mmol/L (3.5-5.1) Chloride Level 102 mmol/L (98-107) Carbon Dioxide Level 28 mmol/L (21-32) Anion Gap 6 (6-14) Blood Urea Nitrogen 62 mg/dL (7-20) Creatinine 2.4 mg/dL (0.6-1.0) Estimated GFR (Cockcroft-Gault) 20.0 Glucose Level 301 mg/dL (70-99) Calcium Level 8.5 mg/dL (8.5-10.1) Review of Systems Constitutional: yes: malaise, weakness Pulmonary: Yes dyspnea Cardiovascular: Yes no symptom reported Gastrointestional: Yes: nausea Musculoskeletal: Yes: muscle stiffness Skin: Yes no symptom reported Psychiatric/Neurological: Yes: no symptom reported Physical Exam General Appearance: no apparent distress Skin: warm Respiratory: decreased breath sounds Heart: S1S2 Abdomen: soft, bowel sounds present Genitourinary: bladder flat Extremities: no edema, atrophy Neurology: alert, oriented, follow commands Assessment Assessment IMP JADE-CR STABLE AT ABOUT 2.3-SOME ATN BUT STABLE HYPERVOLEMIA WITH CHRONIC CHF PLAN CONT LASIX OK TO D/C FROM RENAL STANDPOINT SHE CAN F/U IN OFFICE CARMEN PAGE MD Aug 13, 2017 12:08
--- NOTE | 2017-08-13 12:23 | PDOC ---
Subjective: Subjective: Had a cough and a nosebleed overnight, feeling better now. Objective: Objective: Per RN - DC today? Vital Signs: Vital Signs Date Time Temp Pulse Resp B/P (MAP) Pulse Ox O2 Delivery O2 Flow Rate FiO2 08/13/17 09:28 81 161/51 08/13/17 08:00 Room Air 08/13/17 07:00 98.6 18 98 98.6 08/13/17 02:50 2.0 Labs: Laboratory Tests Test 08/12/17 17:05 08/12/17 20:31 08/13/17 03:45 08/13/17 08:27 Glucose (Fingerstick) 311 mg/dL 384 mg/dL 154 mg/dL Sodium Level 136 mmol/L Potassium Level 4.6 mmol/L Chloride Level 102 mmol/L Carbon Dioxide Level 28 mmol/L Anion Gap 6 Blood Urea Nitrogen 62 mg/dL Creatinine 2.4 mg/dL Estimated GFR (Cockcroft-Gault) 20.0 Glucose Level 301 mg/dL Calcium Level 8.5 mg/dL Test 08/13/17 12:17 Glucose (Fingerstick) 170 mg/dL PE: GEN: NAD LUNGS: clear HEART: RRR ABD: S/ND/NT NEURO/PSYCH: A & O 3 A/P: ZAFAR -EGD/colon w/ reflux, antral erythema, GAVE, and diverticulosis (path pending) -on iron BID + PPI BID -- DC per primary, continue iron and PPI. TANG SERRA Aug 13, 2017 12:23
[2017-08-13 15:00] VITALS: BP 141/50
[2017-08-13] MEDS ORDERED: AMLO10TA2 PO (16:27)
[2017-08-13] MEDS ORDERED: ISOS30TA4 PO (16:31)
[2017-08-13] MEDS ORDERED: LISI-338 PO (16:38)
[2017-08-13] MEDS ORDERED: CELE100C PO (16:39)
[2017-08-14] MEDS ORDERED: ISOSORBIDE MONONITRATE ER 30 MG TAB.ER.24H PO SCH (09:00)
== END 2017-08-13 19:00 | disposition home or self-care (01) | DRG 682 ==
LOC: ER 12:10 → 2 SOUTH 13:43
PROVIDERS: ADMIT Family Medicine; ATTEND Family Medicine
PROC: 30233N1 Transfusion of Nonautologous Red Blood Cells into Peripheral Vein, Percutaneous Approach (ICD-10-PCS; principal; 2017-08-07)
PROC: 0DJD8ZZ Inspection of Lower Intestinal Tract, Via Natural or Artificial Opening Endoscopic (ICD-10-PCS; 2017-08-09 14:30)
DX: N17.0 Acute kidney failure with tubular necrosis (principal); I50.33 Acute on chronic diastolic (congestive) heart failure; E11.22 Type 2 diabetes mellitus with diabetic chronic kidney disease; E11.649 Type 2 diabetes mellitus with hypoglycemia without coma; I13.0 Hypertensive heart and chronic kidney disease with heart failure and stage 1 through stage 4 chronic kidney disease, or unspecified chronic kidney disease; K57.30 Diverticulosis of large intestine without perforation or abscess without bleeding; K21.0 Gastro-esophageal reflux disease with esophagitis; I16.0 Hypertensive urgency; E03.9 Hypothyroidism, unspecified; E11.65 Type 2 diabetes mellitus with hyperglycemia; E86.0 Dehydration; F31.9 Bipolar disorder, unspecified; N18.3 Chronic kidney disease, stage 3 (moderate); R04.0 Epistaxis; Z82.0 Family history of epilepsy and other diseases of the nervous system; Z87.11 Personal history of peptic ulcer disease; Z90.710 Acquired absence of both cervix and uterus
CPT/HCPCS: 36415; 71010; 76770; 80048; 80061; 80076; 81001; 82553; 82607; 82962; 83540; 83550; 83690; 83735; 83880; 84443; 84484; 85025; 85610; 86850; 86900; 86901; 86920; 88305; 88342; 90686; 93005; 93306; 96361; 96374; 96375; J1815; J1940; J2704; J3490; J7030; J7042; P9016; 99285-25; J2001

== ENCOUNTER 2017-09-22 21:09 | Emergency (ER) | payer MEDICARE ==
[~2017-09-22] VITALS: Ht 152.4 cm; Wt 68.0 kg
[~2017-09-22 21:09] MED LIST changes: +AMLO10TA2 PO; +BUSP10TA PO; +CELE100C PO; +FERR-26 PO; +FURO20TA3 PO; +FURO40TA4 PO; +IRON150C9 PO; +ISOS30TA4 PO; +LAMO100T PO; +LISI-338 PO; +MELA3TAB2 PO; +MULT1TAB52 PO; -NAPR500T3 PO; +NAPR500T4 PO; +NEOM10DR32 AS; +PRAM0.255 PO
--- NOTE | 2017-09-22 21:17 | PHYS DOC ---
Past Medical History Past Medical History: Arthritis, Bipolar, Diabetes-Type II, Hypertension Past Surgical History: Hysterectomy Additional Information: non smoker Alcohol Use: None Drug Use: None Adult General Chief Complaint Chief Complaint: CHEST PAIN HPI HPI Patient is a 72 year old female who presents with chest pain. Chest pain started this am at 0800 am. She has no chest pain now. Daughter is concerned because the last episode she had low blood counts and required blood tranfusion. No cough or cold symptoms. She has chronic leg pain (bilaterally) and swelling. She takes hydrocodone "but we are almost out so I am cutting them in half." Last admission in Aug 2017 she had a bone marrow for concern of myelodysplasia. She received blood transfusion or discharge in room was 8.6 on September 09. She has chronic kidney disease and her BUN 52/ creatinine 2.0 in August as well. Review of Systems Review of Systems Constitutional: Denies fever or chills Eyes: Denies change in visual acuity, redness, or eye pain HENT: Denies nasal congestion or sore throat Respiratory: Denies cough or shortness of breath Cardiovascular: chest pain earlier GI: Denies abdominal pain, nausea, vomiting, bloody stools or diarrhea : Denies dysuria or hematuria Musculoskeletal: lower leg pain and mild swelling Integument: Denies rash or skin lesions Neurologic: Denies headache, focal weakness or sensory changes All other systems were reviewed and found to be within normal limits, except as documented in this note. Current Medications Current Medications Current Medications Medications (Trade) Dose Ordered Sig/Angeles Start Time Stop Time Status Last Admin Dose Admin Acetaminophen/ Hydrocodone Bitart (Lortab 5/325) 1 tab 1X ONCE 09/22/17 22:30 09/22/17 22:31 DC 09/22/17 22:09 1 TAB Allergies Allergies Allergies Coded Allergies Type Severity Reaction Last Updated Verified No Known Drug Allergies 08/09/17 No Physical Exam Physical Exam f Constitutional: Well developed, well nourished, no acute distress, non-toxic appearance. HENT: Normocephalic, atraumatic, bilateral external ears normal, oropharynx moist, no oral exudates, nose normal. Eyes: PERRLA, EOMI, conjunctiva normal, no discharge. Neck: Normal range of motion, no tenderness, supple, no stridor. Cardiovascular:Heart rate regular rhythm, no murmur Lungs & Thorax: Bilateral breath sounds clear to auscultation Abdomen: Bowel sounds normal, soft, no tenderness, no masses, no pulsatile masses. Skin: Warm, dry, no erythema, no rash. Back: No tenderness, no CVA tenderness. Extremities: No tenderness, no cyanosis, no clubbing, ROM intact, no edema. Neurologic: Alert and oriented X 3, normal motor function, normal sensory function, no focal deficits noted. Psychologic: Affect normal, judgement normal, mood normal. Current Patient Data Vital Signs Vital Signs Date Time Temp Pulse Resp B/P (MAP) Pulse Ox O2 Delivery O2 Flow Rate FiO2 09/22/17 22:30 66 161/68 (99) 09/22/17 22:09 99 Room Air 09/22/17 21:45 18 09/22/17 21:20 98.2 98.2 Lab Values Laboratory Tests Test 09/22/17 21:20 09/22/17 23:21 White Blood Count 5.3 x10^3/uL (4.0-11.0) Red Blood Count 2.86 x10^6/uL (3.50-5.40) L Hemoglobin 8.5 g/dL (12.0-15.5) L Hematocrit 25.0 % (36.0-47.0) L Mean Corpuscular Volume 88 fL (79-100) Mean Corpuscular Hemoglobin 30 pg (25-35) Mean Corpuscular Hemoglobin Concent 34 g/dL (31-37) Red Cell Distribution Width 19.4 % (11.5-14.5) H Platelet Count 144 x10^3/uL (140-400) Neutrophils (%) (Auto) 72 % (31-73) Lymphocytes (%) (Auto) 19 % (24-48) L Monocytes (%) (Auto) 6 % (0-9) Eosinophils (%) (Auto) 3 % (0-3) Basophils (%) (Auto) 0 % (0-3) Neutrophils # (Auto) 3.8 x10^3uL (1.8-7.7) Lymphocytes # (Auto) 1.0 x10^3/uL (1.0-4.8) Monocytes # (Auto) 0.3 x10^3/uL (0.0-1.1) Eosinophils # (Auto) 0.2 x10^3/uL (0.0-0.7) Basophils # (Auto) 0.0 x10^3/uL (0.0-0.2) Prothrombin Time 12.8 SEC (11.7-14.0) Prothrombin Time INR 1.0 (0.8-1.1) Sodium Level 141 mmol/L (136-145) Potassium Level 4.4 mmol/L (3.5-5.1) Chloride Level 104 mmol/L (98-107) Carbon Dioxide Level 24 mmol/L (21-32) Anion Gap 13 (6-14) Blood Urea Nitrogen 50 mg/dL (7-20) H Creatinine 2.1 mg/dL (0.6-1.0) H Estimated GFR (Cockcroft-Gault) 23.3 BUN/Creatinine Ratio 24 (6-20) H Glucose Level 257 mg/dL (70-99) H Calcium Level 8.9 mg/dL (8.5-10.1) Total Bilirubin 0.6 mg/dL (0.2-1.0) Aspartate Amino Transferase (AST) 29 U/L (15-37) Alanine Aminotransferase (ALT) 37 U/L (14-59) Alkaline Phosphatase 206 U/L (46-116) H Creatine Kinase 248 U/L (26-192) H Creatine Kinase MB (Mass) 4.1 ng/mL (0.0-3.6) H Creatine Kinase MB Relative Index 1.7 % (0-4) Troponin I Quantitative < 0.017 ng/mL (0.000-0.055) JT-Pcv-N-Type Natriuretic Peptide 5773 pg/mL (0-124) H Total Protein 7.8 g/dL (6.4-8.2) Albumin 3.6 g/dL (3.4-5.0) Albumin/Globulin Ratio 0.9 (1.0-1.7) L Lipase 264 U/L (73-393) POC Troponin I 0.01 ng/ml (<0.08) Laboratory Tests 09/22/17 21:20 Laboratory Tests 09/22/17 21:20 EKG EKG EKG interpreted by myself at 2125 PM with NSR, rate 73 nonspecific changes. Radiology/Procedures Radiology/Procedures CXR interpreted by myself at 2200 PM enlarged cardiac silhouette; normal vascularity. Course & Med Decision Making Course & Med Decision Making Evaluated patient upon arrival. Due to her recent admission. One concern would be that her hemoglobin had decreased again causing heart strain. Proceed with cardiac evaluation. She does not have any chest pain now we'll hold on nitroglycerin. Also hold on aspirin as her last platelet count was low due to the concern of myelodysplasia. At midnight: repeat trop normal. Home and patient has appt with Cardiology and Oncology. Differential diagnosis for chest pain includes but is not limited to: Pericarditis, myocarditis, endocarditis, pneumothorax, pneumonia, aortic dissection, esophageal spasm, esophagitis, peptic ulcer disease, acute coronary syndrome, mediastinitis, Boerhaave syndrome, musculoskeletal chest wall pain, costochondritis, intercostal strain, rib fracture, pulmonary contusion, pneumonitis, pleural effusion, pericardial effusion, pericardial tamponode, and pleurisy. At 2245 PM: Negative reviewed. A BUN/creatinine are essentially unchanged from her prior. Her hemoglobin is stable and her platelet Has improved slightly. Again she is having no chest pain now. BMP is 5000 however in July her BNP was 17,000 in July 2017 so is markedly improved. Repeat a second troponin and plan on discharge. Dragon Disclaimer Dragon Disclaimer This electronic medical record was generated, in whole or in part, using a voice recognition dictation system. Departure Departure Impression: Primary Impression: Anemia Additional Impression: Chest pain Disposition: HOME, SELF-CARE Condition: STABLE Referrals: HOUSTON SILVER MD (PCP) Patient Instructions: Anemia, FAQs Additional Instructions: CONTINUE WITH YOUR APPOINTMENTS SCHEDULED THIS WEEK. Problem Qualifiers Primary Impression: Anemia Anemia type: unspecified type Qualified Codes: D64.9 - Anemia, unspecified Additional Impression: Chest pain Chest pain type: unspecified Qualified Codes: R07.9 - Chest pain, unspecified OPAL ROSALES MD Sep 22, 2017 21:17
[2017-09-22 21:36] LABS: BASO % 0 % (0-3); EOS % 3 % (0-3); HEMOGLOBIN 8.5 g/dL (12.0-15.5); LYMPH % 19 % (24-48); MEAN CORPUSCULAR HEMOGLOBIN 30 pg (25-35); MEAN CORPUSCULAR HGB CONC 34 g/dL (31-37); MEAN CORPUSCULAR VOLUME 88 fL (79-100); MONO % 6 % (0-9); NEUT % 72 % (31-73); PLATELET COUNT 144 x10^3/uL (140-400); RED BLOOD COUNT 2.86 x10^6/uL (3.50-5.40); RED CELL DISTRIBUTION WIDTH 19.4 % (11.5-14.5); WHITE BLOOD COUNT 5.3 x10^3/uL (4.0-11.0)
[2017-09-22 21:45] LABS: CALCIUM 8.9 mg/dL (8.5-10.1); CREATININE 2.1 mg/dL (0.6-1.0); GFR 23.3; POTASSIUM 4.4 mmol/L (3.5-5.1); PROTHROMBIN TIME PATIENT 12.8 SEC (11.7-14.0)
[2017-09-22 21:51] LABS: ALBUMIN 3.6 g/dL (3.4-5.0); ALBUMIN/GLOBULIN RATIO 0.9 (1.0-1.7); TOTAL BILIRUBIN 0.6 mg/dL (0.2-1.0); TOTAL PROTEIN 7.8 g/dL (6.4-8.2)
[2017-09-22 22:00] LABS: CKMB MASS 4.1 ng/mL (0.0-3.6)
[2017-09-22 22:30] VITALS: BP 161/68
[2017-09-22] MEDS ORDERED: HYDROcodone/APAP 5/325MG 1 TAB TABLET PO ONE (22:30)
--- NOTE | 2017-09-23 06:25 | EKG ---
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
--- NOTE | 2017-09-23 07:36 | RAD ---
Portable AP upright chest x-ray performed at 2138 Indications: Chest pain today. Comparison: September 04, 2017. Findings: Small left-sided pleural effusion is again evident and has increased slightly in size. Associated left lung base atelectasis is evident. Previously seen right-sided pleural effusion has resolved. Previously seen perihilar interstitial pulmonary edema has resolved. No pneumothorax is seen. The heart size is prominent but stable. Mediastinum is unchanged. IMPRESSION: Resolution of previously seen CHF. However, there is a persistent small left-sided pleural effusion and left lung base atelectasis.
== END 2017-09-23 00:15 | disposition home or self-care (01) ==
LOC: ER 21:09
DX: R07.89 Other chest pain (principal); D64.9 Anemia, unspecified; G89.29 Other chronic pain; I12.9 Hypertensive chronic kidney disease with stage 1 through stage 4 chronic kidney disease, or unspecified chronic kidney disease; E11.22 Type 2 diabetes mellitus with diabetic chronic kidney disease; N18.9 Chronic kidney disease, unspecified; F31.9 Bipolar disorder, unspecified; Z90.710 Acquired absence of both cervix and uterus
CPT/HCPCS: 36415; 71010; 80053; 82553; 83690; 83880; 84484; 85025; 85610; 93005; 99285-25

== ENCOUNTER → 2017-10-01 | Outpatient (CLI) | payer MEDICARE ==
[2017-09-22 22:30] VITALS: BP 161/68
[~2017-10-01] MED LIST changes: +REGADENOSON 0.4 MG/5 ML DISP.SYRIN. IV ONE
--- NOTE | 2017-10-01 12:31 | RAD ---
APPROVED REPORT Test Type: Pharmacological Stress Nurse/Tech: sabiha gonzalez Test Indications: chest pain Cardiac History: NONE STATED, SEE EHR Medications: SEE EHR Medical History: DIABETES, SEE EHR Resting ECG: SR Resting Heart Rate: 62 bpm Resting Blood Pressure: 160/58mmHg Pretest Chest Pain: No chest pain Nurse/Tech Notes LUNG SOUNDS CLEAR, S1S2 WNL. Consent: The procedure was explained to the patient in lay terms. Informed consent was witnessed. Prince eout was entered into Berggi. History and Stress Test performed by RT Erasto (R) (N) Pharm. Details Pharmacologic stress testing was performed using 0.4mg per 5ml of regadenoson given intravenously ove r 7-10 seconds. Stress Symptoms NONE STATED. POST EXERCISE Reason for Termination: Infusion complete Max HR: 76 bpm Max Blood Pressure: 160/58mmHg Chest Pain: No. Arrhythmia: No. ST Change: No. INTERPRETATION Stress EKG Conclusion: No evidence of stress induced EKG changes. Imaging Protocol IMAGE PROTOCOL: Rest Tc-99m/stress Tc-99m 1 day Rest: Stress: Viability: Radiopharm.Tc99m PtyylelgeYu28w Sestamibi Eozj89jVx 34mCi Duration 15min. 10min. Img Date 10/01/2017 10/01/2017 Inj-Img [id number]. 60min. Rest Admin Site:IV - Left AntecubitalAdministrator:DANIELLE Mitchell, KAN (R)(N) Stress Admin Site: IV - Left AntecubitalAdministrator: RT Erasto (R)(N) STRESS DATA End Diast. Vol.141.0mlAv. Heart Rate74.0bpm End Syst. Vol.58.0mlCO Index BSA0.0L/min Myocardial Dflm574.0gEject. Xdfwgnko09.0% Stress Rates Pk. Fill Rate2.33EDV/secLVtime Pk. Fill 173.03msec Pk. Empty Rate2.41ESV/secLVtime Pk. Bgcqq784.16msec 11/17 Pk. Fill1.14EDV/sec Stress Scores Regional WT0.00Summed WT13.00 Regional WM0.00Summed WM9.00 The rest and stress images show normal perfusion, normal contraction and thickening. LV Perf. Quant 17 Seg. SSS0.00 17 Seg. SRS3.00 17 Seg. SDS0.00 Stress Defect Extent (% LAD)0.00Rest Defect Extent (% LAD)0.00Rev. Defect Extent (% LAD)0.00 Stress Defect Extent (% LCX) 0.00Rest Defect Extent (% LCX)16.30Rev. Defect Extent (% LCX)0.00 Stress Defect Extent (% RCA)0.00Rest Defect Extent (% RCA)0.00Rev. Defect Extent (% RCA)0.00 Stress Defect Extent (% VALENTINA)0.00Rest Defect Extent (% VALENTINA)2.80Rev. Defect Extent (% VALENTINA)0.00 Other Information Quality:Average Risk Assessment: Low Risk Conclusion 1. No evidence of EKG changes with stress testing. 2. Normal perfusion at stress/rest. 3. Low risk study. 4. Mild subdiaphragmatic attenuation artifact noted. 5. Low normal EF at 59%.
== END | disposition home or self-care (01) ==
LOC: NM 08:13
PROVIDERS: ATTEND Internal Medicine Cardiovascular Disease
DX: I49.5 Sick sinus syndrome (principal); E11.9 Type 2 diabetes mellitus without complications
CPT/HCPCS: 78452; 93017; 96374; 96375; 96376; A9500; J2785

== ENCOUNTER → 2017-10-21 | Outpatient (CLI) | payer MEDICARE ==
[2017-09-22 22:30] VITALS: BP 161/68
[~2017-10-21] MED LIST changes: -REGADENOSON 0.4 MG/5 ML DISP.SYRIN. IV ONE
[2017-10-21 16:50] LABS: BASO % 0 % (0-3); EOS % 3 % (0-3); HEMATOCRIT 24.5 % (36.0-47.0); LYMPH # 0.6 x10^3/uL (1.0-4.8); LYMPH % 14 % (24-48); MEAN CORPUSCULAR HEMOGLOBIN 29 pg (25-35); MEAN CORPUSCULAR HGB CONC 33 g/dL (31-37); MEAN CORPUSCULAR VOLUME 89 fL (79-100); MONO % 6 % (0-9); NEUT % 77 % (31-73); PLATELET COUNT 155 x10^3/uL (140-400); RED BLOOD COUNT 2.76 x10^6/uL (3.50-5.40); RED CELL DISTRIBUTION WIDTH 18.4 % (11.5-14.5); WHITE BLOOD COUNT 4.8 x10^3/uL (4.0-11.0)
[2017-10-21 17:10] LABS: % SAT IRON 12 % (15-34); IRON,SERUM 35 ug/dL (50-170)
[2017-10-21 17:29] LABS: ALBUMIN 3.5 g/dL (3.4-5.0); CALCIUM 8.8 mg/dL (8.5-10.1); CREATININE 2.4 mg/dL (0.6-1.0); PHOSPHORUS 4.1 mg/dL (2.6-4.7); POTASSIUM 4.7 mmol/L (3.5-5.1)
== END | disposition home or self-care (01) ==
LOC: LAB 16:26
PROVIDERS: ATTEND Internal Medicine Nephrology
DX: N18.4 Chronic kidney disease, stage 4 (severe) (principal); D64.9 Anemia, unspecified
CPT/HCPCS: 36415; 80069; 82728; 83540; 83550; 85025

== ENCOUNTER 2017-11-19 17:08 | Inpatient (IN) | payer MEDICARE ==
[2017-11-19 17:41] LABS: POC GLUCOSE 340 mg/dL (70-99)
[2017-11-19 19:16] LABS: INFLUENZA A PATIENT NEGATIVE (NEGATIVE); INFLUENZA B PATIENT NEGATIVE (NEGATIVE)
[2017-11-19 19:17] LABS: OBC FLU VALID
[2017-11-19] MEDS ORDERED: DEXTROSE 50% 25 GM / 50ML DISP.SYRIN. IV (19:30)
[2017-11-19] MEDS: PANTOPRAZOLE 40 MG TABLET.DR. PO (20:39)
[2017-11-19] MEDS: FUROSEMIDE 40 MG/4 ML VIAL. IVP (20:39)
[2017-11-19] MEDS: HYDROcodone/APAP 5/325MG 1 TAB TABLET PO (20:39)
[2017-11-19] MEDS: busPIRone 10 MG TABLET. PO (20:40)
[2017-11-19] MEDS: PRAMIPEXOLE 0.25 MG TABLET. PO (20:40)
[2017-11-19] MEDS: MIRTAZAPINE 7.5 MG TABLET. PO (20:40)
[2017-11-19 20:56] LABS: POC GLUCOSE 334 mg/dL (70-99)
[2017-11-19] MEDS: INSULIN DETEMIR 300 UNITS/3 ML INSULN.PEN. SQ (21:00)
[2017-11-19] MEDS: BENZONATATE 100 MG CAPSULE. PO (22:02)
[2017-11-19 23:25] LABS: ADD MAN DIFF? NO
[2017-11-19 23:29] LABS: BASO % 1 % (0-3); EOS # 0.1 x10^3/uL (0.0-0.7); EOS % 4 % (0-3); HEMATOCRIT 23.1 % (36.0-47.0); HEMOGLOBIN 7.6 g/dL (12.0-15.5); LYMPH # 0.6 x10^3/uL (1.0-4.8); LYMPH % 16 % (24-48); MEAN CORPUSCULAR HEMOGLOBIN 29 pg (25-35); MEAN CORPUSCULAR HGB CONC 33 g/dL (31-37); MEAN CORPUSCULAR VOLUME 86 fL (79-100); MONO # 0.3 x10^3/uL (0.0-1.1); MONO % 10 % (0-9); NEUT # 2.4 x10^3uL (1.8-7.7); NEUT % 70 % (31-73); PLATELET COUNT 165 x10^3/uL (140-400); RED BLOOD COUNT 2.68 x10^6/uL (3.50-5.40); RED CELL DISTRIBUTION WIDTH 17.6 % (11.5-14.5); WHITE BLOOD COUNT 3.4 x10^3/uL (4.0-11.0)
[2017-11-19 23:59] LABS: NT-PRO BNP 8948 pg/mL (0-124)
[2017-11-20 00:05] LABS: ALBUMIN/GLOBULIN RATIO 0.7 (1.0-1.7); ALK PHOS 324 U/L (46-116); ALT (SGPT) 33 U/L (14-59); ANION GAP 11 (6-14); AST (SGOT) 22 U/L (15-37); BLOOD UREA NITROGEN 64 mg/dL (7-20); BUN/CREATININE RATIO 25 (6-20); CALCIUM 8.2 mg/dL (8.5-10.1); CARBON DIOXIDE 23 mmol/L (21-32); CHLORIDE 101 mmol/L (98-107); CREATININE 2.6 mg/dL (0.6-1.0); GFR 18.2; GLUCOSE 322 mg/dL (70-99); POTASSIUM 4.7 mmol/L (3.5-5.1); SODIUM 135 mmol/L (136-145); TOTAL BILIRUBIN 0.4 mg/dL (0.2-1.0); TOTAL PROTEIN 7.1 g/dL (6.4-8.2)
[2017-11-20] MEDS: LEVOTHYROXINE 88 MCG TABLET PO (06:41)
[2017-11-20 07:39] LABS: POC GLUCOSE 104 mg/dL (70-99)
[2017-11-20] MEDS ORDERED: MAGNESIUM SULFATE 2GM 50 ML IV (09:45)
[2017-11-20] MEDS: FUROSEMIDE 40 MG/4 ML VIAL. IVP (10:23)
[2017-11-20] MEDS: MULTIVITAMIN with MINERAL TABLET. PO (10:24)
[2017-11-20] MEDS: ISOSORBIDE MONONITRATE ER 30 MG TAB.ER.24H PO (10:25)
[2017-11-20] MEDS: busPIRone 10 MG TABLET. PO ×2 (10:25→20:48)
[2017-11-20] MEDS: IRON POLYSACCHARIDE COMPLEX 150 MG CAPSULE PO (10:25)
[2017-11-20] MEDS: glipiZIDE 5 MG TABLET PO ×2 (10:25→17:31)
[2017-11-20] MEDS: PANTOPRAZOLE 40 MG TABLET.DR. PO ×2 (10:25→17:31)
[2017-11-20] MEDS: CYANOCOBALAMIN (VITAMIN B-12) 1,000 MCG TABLET. PO (10:25)
[2017-11-20] MEDS: lamoTRIgine 100 MG TABLET. PO (10:25)
[2017-11-20] MEDS: ASCORBIC ACID 500 MG TABLET PO (10:25)
[2017-11-20] MEDS: amLODIPine BESYLATE 10 MG TABLET PO (10:26)
[2017-11-20 11:04] LABS: POC GLUCOSE 157 mg/dL (70-99)
[2017-11-20 16:37] LABS: POC GLUCOSE 233 mg/dL (70-99)
[2017-11-20] MEDS: FUROSEMIDE INJ 100 MG in IV NORMAL SALINE 100ML 100 ML IV (18:25)
[2017-11-20] MEDS: PRAMIPEXOLE 0.25 MG TABLET. PO (20:47)
[2017-11-20] MEDS: BENZONATATE 100 MG CAPSULE. PO (20:47)
[2017-11-20] MEDS: MIRTAZAPINE 7.5 MG TABLET. PO (20:47)
[2017-11-20] MEDS: HYDROcodone/APAP 5/325MG 1 TAB TABLET PO (20:48)
[2017-11-20 21:40] LABS: POC GLUCOSE 307 mg/dL (70-99)
[2017-11-20] MEDS: INSULIN DETEMIR 300 UNITS/3 ML INSULN.PEN. SQ (21:46)
[2017-11-20 22:11] LABS: CALCIUM PTH 8.8 mg/dL (8.7-10.3); CREATININE PTH 2.39 mg/dL (0.57-1.00); PHOSPHORUS PTH 4.2 mg/dL (2.5-4.5); PTH INTACT 225 pg/mL (15-65); eGFR AFRICAN-AMER 23 (>59); eGFR NON AFRICAN-AMER 20 (>59)
[2017-11-21 05:50] LABS: HEMOGLOBIN 7.8 g/dL (12.0-15.5)
[2017-11-21 06:22] LABS: MAGNESIUM 2.3 mg/dL (1.8-2.4)
[2017-11-21] MEDS: LEVOTHYROXINE 88 MCG TABLET PO (06:27)
[2017-11-21] MEDS: BENZONATATE 100 MG CAPSULE. PO ×2 (06:28→17:39)
[2017-11-21 06:47] LABS: ALBUMIN 2.9 g/dL (3.4-5.0); ANION GAP 8 (6-14); BLOOD UREA NITROGEN 64 mg/dL (7-20); CALCIUM 8.1 mg/dL (8.5-10.1); CARBON DIOXIDE 26 mmol/L (21-32); CHLORIDE 99 mmol/L (98-107); CREATININE 2.4 mg/dL (0.6-1.0); GLUCOSE 217 mg/dL (70-99); PHOSPHORUS 4.3 mg/dL (2.6-4.7); POTASSIUM 4.9 mmol/L (3.5-5.1); SODIUM 133 mmol/L (136-145)
[2017-11-21 08:06] LABS: POC GLUCOSE 151 mg/dL (70-99)
[2017-11-21] MEDS: ONDANSETRON PF 4 MG/2 ML VIAL. IV ×2 (08:44→17:39)
[2017-11-21] MEDS: FUROSEMIDE INJ 100 MG in IV NORMAL SALINE 100ML 100 ML IV (08:45)
[2017-11-21] MEDS: glipiZIDE 5 MG TABLET PO ×2 (08:47→17:39)
[2017-11-21] MEDS: MULTIVITAMIN with MINERAL TABLET. PO (08:47)
[2017-11-21] MEDS: amLODIPine BESYLATE 10 MG TABLET PO (08:49)
[2017-11-21] MEDS: ISOSORBIDE MONONITRATE ER 30 MG TAB.ER.24H PO (08:49)
[2017-11-21] MEDS: ASCORBIC ACID 500 MG TABLET PO (08:49)
[2017-11-21] MEDS: PANTOPRAZOLE 40 MG TABLET.DR. PO ×2 (08:49→17:39)
[2017-11-21] MEDS: busPIRone 10 MG TABLET. PO ×2 (08:49→21:27)
[2017-11-21] MEDS: IRON POLYSACCHARIDE COMPLEX 150 MG CAPSULE PO (08:49)
[2017-11-21] MEDS: lamoTRIgine 100 MG TABLET. PO (08:49)
[2017-11-21 12:06] LABS: POC GLUCOSE 218 mg/dL (70-99)
[2017-11-21] MEDS: CYANOCOBALAMIN (VITAMIN B-12) 1,000 MCG TABLET. PO (12:25)
[2017-11-21 17:13] LABS: PROTEIN 24 HR UR 1135 mg/24 hr (30-150); UR PROTEIN 44.5 mg/dL (Not Estab.)
[2017-11-21 17:15] LABS: POC GLUCOSE 250 mg/dL (70-99)
[2017-11-21] MEDS: MIRTAZAPINE 7.5 MG TABLET. PO (21:27)
[2017-11-21] MEDS: PRAMIPEXOLE 0.25 MG TABLET. PO (21:27)
[2017-11-21] MEDS: HYDROcodone/APAP 5/325MG 1 TAB TABLET PO (21:27)
[2017-11-21] MEDS: INSULIN DETEMIR 300 UNITS/3 ML INSULN.PEN. SQ (21:31)
[2017-11-21 21:54] LABS: POC GLUCOSE 333 mg/dL (70-99)
[2017-11-21 23:08] LABS: CREAT CLEAR 24 17 mL/min (88-128); CREATININE UR 24HR 581 mg/24 hr (800-1800); TOTAL SERUM CREATININE 2.36 mg/dL (0.57-1.00); TOTAL URINE CREATININE 22.8 mg/dL (Not Estab.); eGFR AFRICAN-AMER 23 (>59); eGFR NON AFRICAN-AMER 20 (>59)
[2017-11-22] MEDS: FUROSEMIDE INJ 100 MG in IV NORMAL SALINE 100ML 100 ML IV (00:06)
[2017-11-22 05:50] LABS: PROTHROMBIN TIME PATIENT 12.3 SEC (11.7-14.0)
[2017-11-22 05:55] LABS: ALBUMIN 2.8 g/dL (3.4-5.0); ANION GAP 8 (6-14); BLOOD UREA NITROGEN 65 mg/dL (7-20); CALCIUM 8.1 mg/dL (8.5-10.1); CARBON DIOXIDE 28 mmol/L (21-32); CHLORIDE 96 mmol/L (98-107); CREATININE 2.5 mg/dL (0.6-1.0); GLUCOSE 337 mg/dL (70-99); MAGNESIUM 2.3 mg/dL (1.8-2.4); PHOSPHORUS 5.1 mg/dL (2.6-4.7); SODIUM 132 mmol/L (136-145)
[2017-11-22] MEDS: LEVOTHYROXINE 88 MCG TABLET PO (07:00)
[2017-11-22] MEDS: glipiZIDE 5 MG TABLET PO ×2 (07:30→16:30)
[2017-11-22] MEDS: PANTOPRAZOLE 40 MG TABLET.DR. PO ×2 (07:30→16:30)
[2017-11-22] MEDS: ISOSORBIDE MONONITRATE ER 30 MG TAB.ER.24H PO (09:00)
[2017-11-22] MEDS: IRON POLYSACCHARIDE COMPLEX 150 MG CAPSULE PO (09:00)
[2017-11-22] MEDS: busPIRone 10 MG TABLET. PO ×2 (09:00→21:22)
[2017-11-22] MEDS: MULTIVITAMIN with MINERAL TABLET. PO (09:00)
[2017-11-22] MEDS: CYANOCOBALAMIN (VITAMIN B-12) 1,000 MCG TABLET. PO (09:00)
[2017-11-22] MEDS: lamoTRIgine 100 MG TABLET. PO (09:00)
[2017-11-22] MEDS: amLODIPine BESYLATE 10 MG TABLET PO (09:00)
[2017-11-22] MEDS: ASCORBIC ACID 500 MG TABLET PO (09:00)
[2017-11-22 11:30] LABS: POC GLUCOSE 269 mg/dL (70-99)
[2017-11-22] MEDS ORDERED: LIDOCAINE 2%/EPI 1:100,000 20 ML VIAL. (13:13)
[2017-11-22] MEDS ORDERED: HEPARIN for IV BOLUS 10,000 UNIT/10 ML VIAL. (13:13)
[2017-11-22 13:16] LABS: HCV ANTIBODY <0.1 s/co ratio (0.0-0.9); HEP A IGM ABDY Negative (Negative); HEP B SURFACE ABDY Non Reactive (.); HEP B SURFACE AG Negative (Negative)
[2017-11-22] MEDS ORDERED: MIDAZOLAM HCL/PF 2 MG/2 ML VIAL. (13:34)
[2017-11-22] MEDS ORDERED: fentaNYL PF VIAL 100 MCG/2 ML VIAL (13:35)
[2017-11-22] MEDS: LIDOCAINE 2%/EPI 1:100,000 20 ML VIAL. IJ (14:15)
[2017-11-22] MEDS: MIDAZOLAM HCL/PF 2 MG/2 ML VIAL. IV (14:17)
[2017-11-22] MEDS: fentaNYL PF VIAL 100 MCG/2 ML VIAL IV (14:17)
[2017-11-22] MEDS ORDERED: IV NORMAL SALINE 1000ML BAG 1,000 ML IV ×2 (14:29)
[2017-11-22] MEDS ORDERED: ACETAMINOPHEN 500 MG TABLET PO (14:30)
[2017-11-22] MEDS ORDERED: cloNIDine HCL 0.1 MG TABLET PO (14:30)
[2017-11-22] MEDS ORDERED: LABETALOL 20 MG/4 ML DISP.SYRIN. IVP (14:30)
[2017-11-22] MEDS ORDERED: diphenhydrAMINE 50 MG/ML VIAL IV ×2 (14:30)
[2017-11-22] MEDS ORDERED: DIALYSIS PATIENT. MC (14:30)
[2017-11-22] MEDS ORDERED: ALBUMIN HUMAN 25% 200 ML IV (14:30)
[2017-11-22 21:18] LABS: POC GLUCOSE 198 mg/dL (70-99)
[2017-11-22] MEDS: PRAMIPEXOLE 0.25 MG TABLET. PO (21:22)
[2017-11-22] MEDS: MIRTAZAPINE 7.5 MG TABLET. PO (21:22)
[2017-11-22] MEDS: INSULIN DETEMIR 300 UNITS/3 ML INSULN.PEN. SQ (21:27)
[2017-11-23 05:03] LABS: HEMATOCRIT 24.1 % (36.0-47.0); HEMOGLOBIN 7.9 g/dL (12.0-15.5); MEAN CORPUSCULAR HEMOGLOBIN 28 pg (25-35); MEAN CORPUSCULAR HGB CONC 33 g/dL (31-37); MEAN CORPUSCULAR VOLUME 86 fL (79-100); PLATELET COUNT 167 x10^3/uL (140-400); RED BLOOD COUNT 2.81 x10^6/uL (3.50-5.40); RED CELL DISTRIBUTION WIDTH 17.1 % (11.5-14.5); WHITE BLOOD COUNT 5.5 x10^3/uL (4.0-11.0)
[2017-11-23 05:27] LABS: ALBUMIN 2.8 g/dL (3.4-5.0); ANION GAP 7 (6-14); BLOOD UREA NITROGEN 28 mg/dL (7-20); CALCIUM 8.4 mg/dL (8.5-10.1); CARBON DIOXIDE 32 mmol/L (21-32); CHLORIDE 98 mmol/L (98-107); CREATININE 1.6 mg/dL (0.6-1.0); GFR 31.9; GLUCOSE 173 mg/dL (70-99); PHOSPHORUS 3.4 mg/dL (2.6-4.7); POTASSIUM 4.1 mmol/L (3.5-5.1); SODIUM 137 mmol/L (136-145)
[2017-11-23] MEDS: HYDROcodone/APAP 5/325MG 1 TAB TABLET PO (06:15)
[2017-11-23] MEDS: LEVOTHYROXINE 88 MCG TABLET PO (06:15)
[2017-11-23 08:02] LABS: POC GLUCOSE 114 mg/dL (70-99)
[2017-11-23] MEDS ORDERED: IV NORMAL SALINE 1000ML BAG 1,000 ML IV (08:07)
[2017-11-23] MEDS ORDERED: DIALYSIS PATIENT. MC ×2 (08:15)
[2017-11-23] MEDS ORDERED: ACETAMINOPHEN 500 MG TABLET PO (08:15)
[2017-11-23] MEDS ORDERED: ALBUMIN HUMAN 25% 200 ML IV (08:15)
[2017-11-23] MEDS ORDERED: diphenhydrAMINE 50 MG/ML VIAL IV ×2 (08:15)
[2017-11-23 12:16] LABS: HIV ANTIBODY Non Reactive (Non Reactive)
[2017-11-23] MEDS: PANTOPRAZOLE 40 MG TABLET.DR. PO ×2 (13:00→17:39)
[2017-11-23] MEDS: lamoTRIgine 100 MG TABLET. PO (13:00)
[2017-11-23] MEDS: ISOSORBIDE MONONITRATE ER 30 MG TAB.ER.24H PO (13:00)
[2017-11-23] MEDS: BENZONATATE 100 MG CAPSULE. PO (13:00)
[2017-11-23] MEDS: CYANOCOBALAMIN (VITAMIN B-12) 1,000 MCG TABLET. PO (13:00)
[2017-11-23] MEDS: ASCORBIC ACID 500 MG TABLET PO (13:01)
[2017-11-23] MEDS: amLODIPine BESYLATE 10 MG TABLET PO (13:01)
[2017-11-23] MEDS: IRON POLYSACCHARIDE COMPLEX 150 MG CAPSULE PO (13:01)
[2017-11-23] MEDS: busPIRone 10 MG TABLET. PO ×2 (13:01→22:12)
[2017-11-23] MEDS: MULTIVITAMIN with MINERAL TABLET. PO (13:01)
[2017-11-23] MEDS: glipiZIDE 5 MG TABLET PO ×2 (13:03→17:38)
[2017-11-23] MEDS: ONDANSETRON PF 4 MG/2 ML VIAL. IV (17:38)
[2017-11-23 21:22] LABS: POC GLUCOSE 332 mg/dL (70-99)
[2017-11-23] MEDS: MIRTAZAPINE 7.5 MG TABLET. PO (22:12)
[2017-11-23] MEDS: PRAMIPEXOLE 0.25 MG TABLET. PO (22:12)
[2017-11-23] MEDS: INSULIN DETEMIR 300 UNITS/3 ML INSULN.PEN. SQ (22:21)
[2017-11-24] MEDS: FUROSEMIDE INJ 100 MG in IV NORMAL SALINE 100ML 100 ML IV (01:03)
[2017-11-24] MEDS: DARBEPOETIN ALFA 60 MCG/0.3 ML DISP.SYRIN. SQ (01:04)
[2017-11-24 05:40] LABS: POC GLUCOSE 352 mg/dL (70-99)
[2017-11-24] MEDS: LEVOTHYROXINE 88 MCG TABLET PO (06:30)
[2017-11-24 08:18] LABS: ALBUMIN 2.7 g/dL (3.4-5.0); ANION GAP 8 (6-14); BLOOD UREA NITROGEN 23 mg/dL (7-20); CARBON DIOXIDE 29 mmol/L (21-32); CHLORIDE 95 mmol/L (98-107); CREATININE 1.6 mg/dL (0.6-1.0); GFR 31.9; GLUCOSE 200 mg/dL (70-99); MAGNESIUM 1.8 mg/dL (1.8-2.4); PHOSPHORUS 3.2 mg/dL (2.6-4.7); SODIUM 132 mmol/L (136-145)
[2017-11-24] MEDS ORDERED: IV NORMAL SALINE 1000ML BAG 1,000 ML IV (08:19)
[2017-11-24] MEDS ORDERED: DIALYSIS PATIENT. MC ×2 (08:30)
[2017-11-24] MEDS ORDERED: diphenhydrAMINE 50 MG/ML VIAL IV ×2 (08:30)
[2017-11-24] MEDS ORDERED: ALBUMIN HUMAN 25% 200 ML IV (08:30)
[2017-11-24] MEDS ORDERED: ACETAMINOPHEN 500 MG TABLET PO (08:30)
[2017-11-24 08:33] LABS: POC GLUCOSE 188 mg/dL (70-99)
[2017-11-24 08:33] LABS: HEMATOCRIT 21.3 % (36.0-47.0); HEMOGLOBIN 7.1 g/dL (12.0-15.5); MEAN CORPUSCULAR HEMOGLOBIN 28 pg (25-35); MEAN CORPUSCULAR HGB CONC 33 g/dL (31-37); MEAN CORPUSCULAR VOLUME 85 fL (79-100); PLATELET COUNT 164 x10^3/uL (140-400); RED BLOOD COUNT 2.51 x10^6/uL (3.50-5.40); RED CELL DISTRIBUTION WIDTH 17.5 % (11.5-14.5); WHITE BLOOD COUNT 4.9 x10^3/uL (4.0-11.0)
[2017-11-24 13:53] LABS: POC GLUCOSE 119 mg/dL (70-99)
[2017-11-24] MEDS: amLODIPine BESYLATE 10 MG TABLET PO (14:06)
[2017-11-24] MEDS: ISOSORBIDE MONONITRATE ER 30 MG TAB.ER.24H PO (14:06)
[2017-11-24] MEDS: PANTOPRAZOLE 40 MG TABLET.DR. PO ×2 (14:06→17:32)
[2017-11-24] MEDS: lamoTRIgine 100 MG TABLET. PO (14:06)
[2017-11-24] MEDS: glipiZIDE 5 MG TABLET PO ×2 (14:06→17:32)
[2017-11-24] MEDS: busPIRone 10 MG TABLET. PO ×2 (14:06→20:58)
[2017-11-24] MEDS: MULTIVITAMIN with MINERAL TABLET. PO (14:06)
[2017-11-24] MEDS: CYANOCOBALAMIN (VITAMIN B-12) 1,000 MCG TABLET. PO (14:06)
[2017-11-24] MEDS: ASCORBIC ACID 500 MG TABLET PO (14:06)
[2017-11-24] MEDS: IRON POLYSACCHARIDE COMPLEX 150 MG CAPSULE PO (14:07)
[2017-11-24 16:22] LABS: POC GLUCOSE 252 mg/dL (70-99)
[2017-11-24] MEDS: MIRTAZAPINE 7.5 MG TABLET. PO (20:58)
[2017-11-24] MEDS: PRAMIPEXOLE 0.25 MG TABLET. PO (20:58)
[2017-11-24] MEDS: INSULIN DETEMIR 300 UNITS/3 ML INSULN.PEN. SQ (21:02)
[2017-11-24 21:12] LABS: POC GLUCOSE 432 mg/dL (70-99)
[2017-11-24] MEDS: INSULIN ASPART 300 UNITS/3 ML INSULN.PEN SQ (21:51)
[2017-11-25] MEDS: LEVOTHYROXINE 88 MCG TABLET PO (06:19)
[2017-11-25 07:16] LABS: ALBUMIN 2.6 g/dL (3.4-5.0); ANION GAP 5 (6-14); BLOOD UREA NITROGEN 27 mg/dL (7-20); CALCIUM 7.6 mg/dL (8.5-10.1); CARBON DIOXIDE 31 mmol/L (21-32); CHLORIDE 97 mmol/L (98-107); CREATININE 1.7 mg/dL (0.6-1.0); GFR 29.7; GLUCOSE 291 mg/dL (70-99); MAGNESIUM 1.9 mg/dL (1.8-2.4); PHOSPHORUS 3.2 mg/dL (2.6-4.7); POTASSIUM 4.1 mmol/L (3.5-5.1); SODIUM 133 mmol/L (136-145)
[2017-11-25 08:06] LABS: POC GLUCOSE 271 mg/dL (70-99)
[2017-11-25] MEDS: lamoTRIgine 100 MG TABLET. PO (08:58)
[2017-11-25] MEDS: IRON POLYSACCHARIDE COMPLEX 150 MG CAPSULE PO (08:58)
[2017-11-25] MEDS: ASCORBIC ACID 500 MG TABLET PO (08:58)
[2017-11-25] MEDS: CYANOCOBALAMIN (VITAMIN B-12) 1,000 MCG TABLET. PO (08:58)
[2017-11-25] MEDS: ISOSORBIDE MONONITRATE ER 30 MG TAB.ER.24H PO (08:58)
[2017-11-25] MEDS: glipiZIDE 5 MG TABLET PO ×2 (08:59→16:57)
[2017-11-25] MEDS: MULTIVITAMIN with MINERAL TABLET. PO (08:59)
[2017-11-25] MEDS: PANTOPRAZOLE 40 MG TABLET.DR. PO ×2 (08:59→16:57)
[2017-11-25] MEDS: BENZONATATE 100 MG CAPSULE. PO ×2 (08:59→17:00)
[2017-11-25] MEDS: amLODIPine BESYLATE 10 MG TABLET PO (08:59)
[2017-11-25] MEDS: busPIRone 10 MG TABLET. PO ×2 (08:59→20:57)
[2017-11-25 11:44] LABS: POC GLUCOSE 236 mg/dL (70-99)
[2017-11-25 16:38] LABS: POC GLUCOSE 300 mg/dL (70-99)
[2017-11-25] MEDS: INSULIN ASPART 300 UNITS/3 ML INSULN.PEN SQ (17:00)
[2017-11-25 20:34] LABS: POC GLUCOSE 406 mg/dL (70-99)
[2017-11-25] MEDS: MIRTAZAPINE 7.5 MG TABLET. PO (20:56)
[2017-11-25] MEDS: PRAMIPEXOLE 0.25 MG TABLET. PO (20:57)
[2017-11-25] MEDS: INSULIN DETEMIR 300 UNITS/3 ML INSULN.PEN. SQ (21:01)
[2017-11-26] MEDS: BENZONATATE 100 MG CAPSULE. PO (05:29)
[2017-11-26] MEDS: LEVOTHYROXINE 88 MCG TABLET PO (05:29)
[2017-11-26 06:40] LABS: ALBUMIN 2.8 g/dL (3.4-5.0); ANION GAP 5 (6-14); BLOOD UREA NITROGEN 41 mg/dL (7-20); CALCIUM 8.5 mg/dL (8.5-10.1); CARBON DIOXIDE 32 mmol/L (21-32); CHLORIDE 95 mmol/L (98-107); CREATININE 2.1 mg/dL (0.6-1.0); GFR 23.3; GLUCOSE 384 mg/dL (70-99); PHOSPHORUS 3.4 mg/dL (2.6-4.7); POTASSIUM 4.5 mmol/L (3.5-5.1); SODIUM 132 mmol/L (136-145)
[2017-11-26 08:05] LABS: POC GLUCOSE 384 mg/dL (70-99)
[2017-11-26] MEDS: CYANOCOBALAMIN (VITAMIN B-12) 1,000 MCG TABLET. PO (08:54)
[2017-11-26] MEDS: MULTIVITAMIN with MINERAL TABLET. PO (08:54)
[2017-11-26] MEDS: glipiZIDE 5 MG TABLET PO ×2 (08:54→15:53)
[2017-11-26] MEDS: IRON POLYSACCHARIDE COMPLEX 150 MG CAPSULE PO (08:55)
[2017-11-26] MEDS: PANTOPRAZOLE 40 MG TABLET.DR. PO ×2 (08:56→15:53)
[2017-11-26] MEDS: busPIRone 10 MG TABLET. PO (08:56)
[2017-11-26] MEDS: ASCORBIC ACID 500 MG TABLET PO (08:56)
[2017-11-26] MEDS: INSULIN ASPART 300 UNITS/3 ML INSULN.PEN SQ ×4 (08:59→15:56)
[2017-11-26] MEDS: amLODIPine BESYLATE 10 MG TABLET PO (10:42)
[2017-11-26] MEDS: lamoTRIgine 100 MG TABLET. PO (10:42)
[2017-11-26] MEDS: ISOSORBIDE MONONITRATE ER 30 MG TAB.ER.24H PO (10:42)
[2017-11-26 11:20] LABS: POC GLUCOSE 370 mg/dL (70-99)
[2017-11-26] MEDS ORDERED: IV NORMAL SALINE 1000ML BAG 1,000 ML IV ×2 (12:32)
[2017-11-26] MEDS ORDERED: DIALYSIS PATIENT. MC (12:45)
[2017-11-26] MEDS ORDERED: ACETAMINOPHEN 500 MG TABLET PO (12:45)
[2017-11-26] MEDS ORDERED: diphenhydrAMINE 50 MG/ML VIAL IV ×2 (12:45)
[2017-11-26] MEDS ORDERED: LABETALOL 20 MG/4 ML DISP.SYRIN. IVP (12:45)
[2017-11-26] MEDS ORDERED: ALBUMIN HUMAN 25% 200 ML IV (12:45)
[2017-11-26] MEDS ORDERED: cloNIDine HCL 0.1 MG TABLET PO (12:45)
[2017-11-26 15:52] LABS: POC GLUCOSE 146 mg/dL (70-99)
== END 2017-11-26 17:56 | disposition home or self-care (01) | DRG 286 ==
LOC: 5 SOUTH 17:08
PROVIDERS: Family Medicine
PROC: 02H633Z Insertion of Infusion Device into Right Atrium, Percutaneous Approach (ICD-10-PCS; principal; 2017-11-22)
PROC: B2141ZZ Fluoroscopy of Right Heart using Low Osmolar Contrast (ICD-10-PCS; 2017-11-22)
PROC: B244ZZZ Ultrasonography of Right Heart (ICD-10-PCS; 2017-11-22)
PROC: 5A1D70Z Performance of Urinary Filtration, Intermittent, Less than 6 Hours Per Day (ICD-10-PCS; 2017-11-22)
PROC: 5A1D70Z Performance of Urinary Filtration, Intermittent, Less than 6 Hours Per Day (ICD-10-PCS; 2017-11-23)
PROC: 5A1D70Z Performance of Urinary Filtration, Intermittent, Less than 6 Hours Per Day (ICD-10-PCS; 2017-11-24)
PROC: 5A1D70Z Performance of Urinary Filtration, Intermittent, Less than 6 Hours Per Day (ICD-10-PCS; 2017-11-26)
DX: I13.2 Hypertensive heart and chronic kidney disease with heart failure and with stage 5 chronic kidney disease, or end stage renal disease (principal); I50.33 Acute on chronic diastolic (congestive) heart failure; E11.22 Type 2 diabetes mellitus with diabetic chronic kidney disease; N18.4 Chronic kidney disease, stage 4 (severe); E11.42 Type 2 diabetes mellitus with diabetic polyneuropathy; N18.6 End stage renal disease; D64.9 Anemia, unspecified; E03.9 Hypothyroidism, unspecified; E78.5 Hyperlipidemia, unspecified; F41.9 Anxiety disorder, unspecified; F31.9 Bipolar disorder, unspecified; K21.9 Gastro-esophageal reflux disease without esophagitis; Z82.0 Family history of epilepsy and other diseases of the nervous system; Z87.11 Personal history of peptic ulcer disease; Z90.710 Acquired absence of both cervix and uterus; Z79.4 Long term (current) use of insulin
CPT/HCPCS: 36415; 36558; 71045; 76937; 77001; 80053; 80069; 80074; 82575; 82962; 83735; 83880; 83970; 84156; 85018; 85025; 85027; 85610; 86703; 86704; 86706; 87804; 87804-59; 99152; A4215; C1750; C1892; J0690; J0881; J1644; J1815; J1940; J2250; J2405; J3010; J3490

== ENCOUNTER 2018-03-16 17:42 | Emergency (ER) | payer MEDICARE ==
[2018-03-16 18:41] LABS: BILIRUBIN,URINE NEGATIVE (NEG); CLARITY,URINE CLOUDY; COLOR,URINE YELLOW; GLUCOSE,URINE 250 mg/dL (NEG); NITRITE,URINE NEGATIVE (NEG); PH,URINE 6.5; PROTEIN,URINE >=300 mg/dL (NEG-TRACE)
[2018-03-16 18:45] LABS: RBC,URINE 20-40 /HPF (0-2); WBC,URINE OCC /HPF (0-4)
[2018-03-16 18:47] LABS: AMORPHOUS SEDIMENT,UR PRESENT /HPF; BACTERIA,URINE 0 /HPF (0-FEW); SQUAMOUS EPITHELIAL CELL,UR FEW /LPF
[2018-03-16 18:49] LABS: BARBITURATES NEG (NEG); BENZODIAZEPINES NEG (NEG); CANNABINOIDS NEG (NEG); COCAINE NEG (NEG); METHADONE NEG (NEG); OPIATES NEG (NEG); PHENCYCLIDINE NEG (NEG)
[2018-03-16 18:51] LABS: AMPHETAMINE/METHAMPHETAMINE NEG (NEG); ETHANOL, URINE NEG (NEG)
[2018-03-16 18:58] LABS: ADD MAN DIFF? NO
[2018-03-16 19:01] LABS: BASO % 1 % (0-3); EOS # 0.2 x10^3/uL (0.0-0.7); EOS % 3 % (0-3); HEMATOCRIT 38.5 % (36.0-47.0); HEMOGLOBIN 12.7 g/dL (12.0-15.5); LYMPH # 0.8 x10^3/uL (1.0-4.8); LYMPH % 14 % (24-48); MEAN CORPUSCULAR HEMOGLOBIN 29 pg (25-35); MEAN CORPUSCULAR HGB CONC 33 g/dL (31-37); MEAN CORPUSCULAR VOLUME 87 fL (79-100); MONO # 0.3 x10^3/uL (0.0-1.1); MONO % 5 % (0-9); NEUT # 4.6 x10^3uL (1.8-7.7); NEUT % 78 % (31-73); PLATELET COUNT 211 x10^3/uL (140-400); RED BLOOD COUNT 4.41 x10^6/uL (3.50-5.40); RED CELL DISTRIBUTION WIDTH 17.4 % (11.5-14.5); WHITE BLOOD COUNT 5.9 x10^3/uL (4.0-11.0)
[2018-03-16 19:09] LABS: ANION GAP 9 (6-14); BLOOD UREA NITROGEN 38 mg/dL (7-20); BUN/CREATININE RATIO 14 (6-20); CALCIUM 8.7 mg/dL (8.5-10.1); CARBON DIOXIDE 30 mmol/L (21-32); CHLORIDE 101 mmol/L (98-107); CREATININE 2.7 mg/dL (0.6-1.0); GFR 17.4; GLUCOSE 242 mg/dL (70-99); POTASSIUM 4.1 mmol/L (3.5-5.1); SODIUM 140 mmol/L (136-145)
[2018-03-16 19:10] LABS: INR 1.1 (0.8-1.1); PARTIAL THROMBOPLASTIN TIME 27 SEC (24-38); PROTHROMBIN TIME PATIENT 14.1 SEC (11.7-14.0)
[2018-03-16 19:15] LABS: ALBUMIN 3.5 g/dL (3.4-5.0); ALBUMIN/GLOBULIN RATIO 0.8 (1.0-1.7); ALK PHOS 252 U/L (46-116); ALT (SGPT) 23 U/L (14-59); AST (SGOT) 22 U/L (15-37); LIPASE 220 U/L (73-393); TOTAL BILIRUBIN 0.8 mg/dL (0.2-1.0); TOTAL PROTEIN 7.7 g/dL (6.4-8.2)
[2018-03-16 19:17] LABS: TROPONINI < 0.017 ng/mL (0.000-0.055)
[2018-03-16 19:24] LABS: CKMB MASS 1.9 ng/mL (0.0-3.6); CREATINE KINASE 72 U/L (26-192)
== END 2018-03-16 21:29 | disposition home or self-care (01) ==
LOC: ER 17:42
DX: R10.84 Generalized abdominal pain (principal); I12.0 Hypertensive chronic kidney disease with stage 5 chronic kidney disease or end stage renal disease; N18.6 End stage renal disease; Z99.2 Dependence on renal dialysis; F31.9 Bipolar disorder, unspecified; E11.22 Type 2 diabetes mellitus with diabetic chronic kidney disease; F17.210 Nicotine dependence, cigarettes, uncomplicated; Z90.710 Acquired absence of both cervix and uterus
CPT/HCPCS: 36415; 74176; 80053; 80307; 81001; 82553; 83690; 84484; 85025; 85610; 85730; 93005; 99285-25

== ENCOUNTER 2018-03-17 15:05 | Inpatient (IN) | payer MEDICARE ==
[2018-03-17 16:59] LABS: POC GLUCOSE 138 mg/dL (70-99)
[2018-03-17] MEDS ORDERED: HYDROcodone/APAP 5/325MG 1 TAB TABLET PO (17:00)
[2018-03-17] MEDS ORDERED: ACETAMINOPHEN/CODEINE 300/30MG TABLET. PO (17:00)
[2018-03-17] MEDS: glipiZIDE 5 MG TABLET PO (18:27)
[2018-03-17 18:59] LABS: ADD MAN DIFF? NO
[2018-03-17 19:06] LABS: BASO % 0 % (0-3); EOS # 0.2 x10^3/uL (0.0-0.7); EOS % 3 % (0-3); HEMATOCRIT 37.9 % (36.0-47.0); HEMOGLOBIN 12.6 g/dL (12.0-15.5); LYMPH # 0.8 x10^3/uL (1.0-4.8); LYMPH % 15 % (24-48); MEAN CORPUSCULAR HEMOGLOBIN 29 pg (25-35); MEAN CORPUSCULAR HGB CONC 33 g/dL (31-37); MEAN CORPUSCULAR VOLUME 88 fL (79-100); MONO # 0.3 x10^3/uL (0.0-1.1); MONO % 6 % (0-9); NEUT # 4.1 x10^3uL (1.8-7.7); NEUT % 76 % (31-73); PLATELET COUNT 208 x10^3/uL (140-400); RED CELL DISTRIBUTION WIDTH 17.3 % (11.5-14.5); WHITE BLOOD COUNT 5.4 x10^3/uL (4.0-11.0)
[2018-03-17 19:24] LABS: ALBUMIN 3.3 g/dL (3.4-5.0); ALBUMIN/GLOBULIN RATIO 0.8 (1.0-1.7); ALK PHOS 221 U/L (46-116); ALT (SGPT) 21 U/L (14-59); ANION GAP 10 (6-14); AST (SGOT) 21 U/L (15-37); BLOOD UREA NITROGEN 42 mg/dL (7-20); BUN/CREATININE RATIO 13 (6-20); CALCIUM 8.5 mg/dL (8.5-10.1); CARBON DIOXIDE 29 mmol/L (21-32); CHLORIDE 102 mmol/L (98-107); CREATININE 3.2 mg/dL (0.6-1.0); GFR 14.3; GLUCOSE 187 mg/dL (70-99); POTASSIUM 3.9 mmol/L (3.5-5.1); SODIUM 141 mmol/L (136-145); TOTAL BILIRUBIN 1.1 mg/dL (0.2-1.0); TOTAL PROTEIN 7.4 g/dL (6.4-8.2)
[2018-03-17] MEDS: MIRTAZAPINE 7.5 MG TABLET. PO (20:33)
[2018-03-17] MEDS: QUEtiapine 25 MG TABLET. PO (20:33)
[2018-03-17] MEDS: lamoTRIgine 100 MG TABLET. PO (20:33)
[2018-03-17] MEDS: busPIRone 10 MG TABLET. PO (20:33)
[2018-03-17 20:34] LABS: POC GLUCOSE 206 mg/dL (70-99)
[2018-03-17] MEDS: INSULIN GLARGINE 300 UNITS/3 ML INSULN.PEN. SQ (20:34)
[2018-03-17 20:47] LABS: BILIRUBIN,URINE NEGATIVE (NEG); CLARITY,URINE CLEAR; COLOR,URINE YELLOW; GLUCOSE,URINE 250 mg/dL (NEG); NITRITE,URINE NEGATIVE (NEG); PH,URINE 6.5; PROTEIN,URINE >=300 mg/dL (NEG-TRACE)
[2018-03-17 20:54] LABS: BACTERIA,URINE MODERATE /HPF (0-FEW); SQUAMOUS EPITHELIAL CELL,UR MOD /LPF
[2018-03-18] MEDS: LEVOTHYROXINE 88 MCG TABLET PO (05:59)
[2018-03-18] MEDS: PANTOPRAZOLE 40 MG TABLET.DR. PO (05:59)
[2018-03-18 07:35] LABS: POC GLUCOSE 155 mg/dL (70-99)
[2018-03-18] MEDS ORDERED: IV NORMAL SALINE 1000ML BAG 1,000 ML IV ×2 (08:00)
[2018-03-18] MEDS ORDERED: diphenhydrAMINE 50 MG/ML VIAL IV ×2 (08:00)
[2018-03-18] MEDS ORDERED: ACETAMINOPHEN 500 MG TABLET PO (08:00)
[2018-03-18] MEDS ORDERED: DIALYSIS PATIENT. MC (08:00)
[2018-03-18] MEDS ORDERED: ALBUMIN HUMAN 25% 200 ML IV (08:00)
[2018-03-18] MEDS ORDERED: LABETALOL 20 MG/4 ML DISP.SYRIN. IVP (08:00)
[2018-03-18 12:03] LABS: POC GLUCOSE 122 mg/dL (70-99)
[2018-03-18] MEDS: amLODIPine BESYLATE 10 MG TABLET PO (12:07)
[2018-03-18] MEDS: DONEPEZIL HCL 5 MG TABLET. PO (12:07)
[2018-03-18] MEDS: CYANOCOBALAMIN (VITAMIN B-12) 1,000 MCG TABLET. PO (12:07)
[2018-03-18] MEDS: ISOSORBIDE MONONITRATE ER 30 MG TAB.ER.24H PO (12:08)
[2018-03-18] MEDS: MULTIVITAMIN with MINERAL TABLET. PO (12:08)
[2018-03-18] MEDS: ASCORBIC ACID 500 MG TABLET PO (12:08)
[2018-03-18] MEDS: busPIRone 10 MG TABLET. PO ×2 (12:08→20:48)
[2018-03-18] MEDS: glipiZIDE 5 MG TABLET PO ×2 (12:08→17:16)
[2018-03-18 16:43] LABS: POC GLUCOSE 166 mg/dL (70-99)
[2018-03-18 20:41] LABS: POC GLUCOSE 188 mg/dL (70-99)
[2018-03-18] MEDS: lamoTRIgine 100 MG TABLET. PO (20:48)
[2018-03-18] MEDS: MIRTAZAPINE 7.5 MG TABLET. PO (20:48)
[2018-03-18] MEDS: QUEtiapine 25 MG TABLET. PO (20:48)
[2018-03-18] MEDS: INSULIN GLARGINE 300 UNITS/3 ML INSULN.PEN. SQ (20:53)
[2018-03-19] MEDS: LEVOTHYROXINE 88 MCG TABLET PO (06:02)
[2018-03-19] MEDS: PANTOPRAZOLE 40 MG TABLET.DR. PO (06:02)
[2018-03-19 07:32] LABS: POC GLUCOSE 181 mg/dL (70-99)
[2018-03-19] MEDS: ASCORBIC ACID 500 MG TABLET PO (09:14)
[2018-03-19] MEDS: busPIRone 10 MG TABLET. PO ×2 (09:14→20:48)
[2018-03-19] MEDS: amLODIPine BESYLATE 10 MG TABLET PO (09:15)
[2018-03-19] MEDS: CYANOCOBALAMIN (VITAMIN B-12) 1,000 MCG TABLET. PO (09:15)
[2018-03-19] MEDS: glipiZIDE 5 MG TABLET PO ×2 (09:16→16:26)
[2018-03-19] MEDS: DONEPEZIL HCL 5 MG TABLET. PO (09:17)
[2018-03-19] MEDS: ISOSORBIDE MONONITRATE ER 30 MG TAB.ER.24H PO (09:18)
[2018-03-19] MEDS: MULTIVITAMIN with MINERAL TABLET. PO (09:18)
[2018-03-19 12:07] LABS: POC GLUCOSE 179 mg/dL (70-99)
[2018-03-19 16:47] LABS: POC GLUCOSE 228 mg/dL (70-99)
[2018-03-19] MEDS: QUEtiapine 25 MG TABLET. PO (20:47)
[2018-03-19] MEDS: lamoTRIgine 100 MG TABLET. PO (20:47)
[2018-03-19] MEDS: MIRTAZAPINE 7.5 MG TABLET. PO (20:47)
[2018-03-19 20:50] LABS: POC GLUCOSE 369 mg/dL (70-99)
[2018-03-19] MEDS: INSULIN GLARGINE 300 UNITS/3 ML INSULN.PEN. SQ (20:50)
[2018-03-20] MEDS: LEVOTHYROXINE 88 MCG TABLET PO (05:35)
[2018-03-20] MEDS: PANTOPRAZOLE 40 MG TABLET.DR. PO (05:35)
[2018-03-20 07:10] LABS: POC GLUCOSE 159 mg/dL (70-99)
[2018-03-20] MEDS: CYANOCOBALAMIN (VITAMIN B-12) 1,000 MCG TABLET. PO (08:03)
[2018-03-20] MEDS: busPIRone 10 MG TABLET. PO ×2 (08:04→20:54)
[2018-03-20] MEDS: glipiZIDE 5 MG TABLET PO ×2 (08:04→16:37)
[2018-03-20] MEDS: ASCORBIC ACID 500 MG TABLET PO (08:04)
[2018-03-20] MEDS: ISOSORBIDE MONONITRATE ER 30 MG TAB.ER.24H PO (08:04)
[2018-03-20] MEDS: MULTIVITAMIN with MINERAL TABLET. PO (08:04)
[2018-03-20] MEDS: DONEPEZIL HCL 5 MG TABLET. PO (08:04)
[2018-03-20] MEDS: amLODIPine BESYLATE 10 MG TABLET PO (08:05)
[2018-03-20 11:11] LABS: POC GLUCOSE 194 mg/dL (70-99)
[2018-03-20 16:38] LABS: POC GLUCOSE 185 mg/dL (70-99)
[2018-03-20] MEDS: lamoTRIgine 100 MG TABLET. PO (20:54)
[2018-03-20] MEDS: QUEtiapine 25 MG TABLET. PO (20:54)
[2018-03-20] MEDS: MIRTAZAPINE 7.5 MG TABLET. PO (20:54)
[2018-03-20] MEDS: INSULIN GLARGINE 300 UNITS/3 ML INSULN.PEN. SQ (21:02)
[2018-03-20 21:08] LABS: POC GLUCOSE 305 mg/dL (70-99)
[2018-03-21] MEDS: PANTOPRAZOLE 40 MG TABLET.DR. PO (05:41)
[2018-03-21] MEDS: LEVOTHYROXINE 88 MCG TABLET PO (05:42)
[2018-03-21 08:09] LABS: POC GLUCOSE 108 mg/dL (70-99)
[2018-03-21] MEDS: CYANOCOBALAMIN (VITAMIN B-12) 1,000 MCG TABLET. PO (08:38)
[2018-03-21] MEDS: DONEPEZIL HCL 5 MG TABLET. PO (08:38)
[2018-03-21] MEDS: glipiZIDE 5 MG TABLET PO ×2 (08:38→17:24)
[2018-03-21] MEDS: busPIRone 10 MG TABLET. PO ×2 (08:38→20:47)
[2018-03-21] MEDS: MULTIVITAMIN with MINERAL TABLET. PO (08:38)
[2018-03-21] MEDS: ASCORBIC ACID 500 MG TABLET PO (08:38)
[2018-03-21] MEDS ORDERED: IV NORMAL SALINE 1000ML BAG 1,000 ML IV ×2 (09:07)
[2018-03-21] MEDS ORDERED: diphenhydrAMINE 50 MG/ML VIAL IV ×2 (09:15)
[2018-03-21] MEDS ORDERED: ACETAMINOPHEN 500 MG TABLET PO (09:15)
[2018-03-21] MEDS ORDERED: DIALYSIS PATIENT. MC (09:15)
[2018-03-21] MEDS ORDERED: 0.9 % SODIUM CHLORIDE 10 ML DISP.SYRIN. IV ×2 (09:15)
[2018-03-21 13:43] LABS: POC GLUCOSE 82 mg/dL (70-99)
[2018-03-21] MEDS: ISOSORBIDE MONONITRATE ER 30 MG TAB.ER.24H PO (13:51)
[2018-03-21] MEDS: amLODIPine BESYLATE 10 MG TABLET PO (13:52)
[2018-03-21 16:32] LABS: POC GLUCOSE 177 mg/dL (70-99)
[2018-03-21 20:41] LABS: POC GLUCOSE 190 mg/dL (70-99)
[2018-03-21] MEDS: MIRTAZAPINE 7.5 MG TABLET. PO (20:46)
[2018-03-21] MEDS: lamoTRIgine 100 MG TABLET. PO (20:46)
[2018-03-21] MEDS: QUEtiapine 25 MG TABLET. PO (20:46)
[2018-03-21] MEDS: INSULIN GLARGINE 300 UNITS/3 ML INSULN.PEN. SQ (20:52)
[2018-03-22] MEDS: PANTOPRAZOLE 40 MG TABLET.DR. PO (05:41)
[2018-03-22] MEDS: LEVOTHYROXINE 88 MCG TABLET PO (05:41)
[2018-03-22 08:06] LABS: POC GLUCOSE 109 mg/dL (70-99)
[2018-03-22] MEDS: glipiZIDE 5 MG TABLET PO ×2 (10:21→17:09)
[2018-03-22] MEDS: busPIRone 10 MG TABLET. PO ×2 (10:22→21:31)
[2018-03-22] MEDS: ASCORBIC ACID 500 MG TABLET PO (10:22)
[2018-03-22] MEDS: CYANOCOBALAMIN (VITAMIN B-12) 1,000 MCG TABLET. PO (10:22)
[2018-03-22] MEDS: ISOSORBIDE MONONITRATE ER 30 MG TAB.ER.24H PO (10:22)
[2018-03-22] MEDS: DONEPEZIL HCL 5 MG TABLET. PO (10:22)
[2018-03-22] MEDS: MULTIVITAMIN with MINERAL TABLET. PO (10:23)
[2018-03-22] MEDS: amLODIPine BESYLATE 10 MG TABLET PO (10:23)
[2018-03-22 11:39] LABS: POC GLUCOSE 187 mg/dL (70-99)
[2018-03-22 14:29] LABS: HEP B SURFACE AG Negative (Negative)
[2018-03-22 16:33] LABS: POC GLUCOSE 150 mg/dL (70-99)
[2018-03-22 20:52] LABS: POC GLUCOSE 202 mg/dL (70-99)
[2018-03-22] MEDS: QUEtiapine 25 MG TABLET. PO (21:30)
[2018-03-22] MEDS: MIRTAZAPINE 7.5 MG TABLET. PO (21:30)
[2018-03-22] MEDS: lamoTRIgine 100 MG TABLET. PO (21:31)
[2018-03-22] MEDS: INSULIN GLARGINE 300 UNITS/3 ML INSULN.PEN. SQ (21:36)
[2018-03-23 03:39] LABS: HEMATOCRIT 33.2 % (36.0-47.0); HEMOGLOBIN 11.2 g/dL (12.0-15.5); MEAN CORPUSCULAR HEMOGLOBIN 29 pg (25-35); MEAN CORPUSCULAR HGB CONC 34 g/dL (31-37); MEAN CORPUSCULAR VOLUME 86 fL (79-100); PLATELET COUNT 168 x10^3/uL (140-400); RED BLOOD COUNT 3.84 x10^6/uL (3.50-5.40); RED CELL DISTRIBUTION WIDTH 17.1 % (11.5-14.5); WHITE BLOOD COUNT 4.8 x10^3/uL (4.0-11.0)
[2018-03-23 05:23] LABS: ANION GAP 9 (6-14); BLOOD UREA NITROGEN 49 mg/dL (7-20); CALCIUM 8.4 mg/dL (8.5-10.1); CARBON DIOXIDE 28 mmol/L (21-32); CHLORIDE 100 mmol/L (98-107); CREATININE 2.9 mg/dL (0.6-1.0); GLUCOSE 341 mg/dL (70-99); POTASSIUM 4.6 mmol/L (3.5-5.1); SODIUM 137 mmol/L (136-145)
[2018-03-23] MEDS: LEVOTHYROXINE 88 MCG TABLET PO (05:39)
[2018-03-23] MEDS: PANTOPRAZOLE 40 MG TABLET.DR. PO (05:39)
[2018-03-23] MEDS ORDERED: IV NORMAL SALINE 1000ML BAG 1,000 ML IV ×2 (07:46)
[2018-03-23] MEDS ORDERED: DIALYSIS PATIENT. MC (08:00)
[2018-03-23] MEDS ORDERED: 0.9 % SODIUM CHLORIDE 10 ML DISP.SYRIN. IV ×2 (08:00)
[2018-03-23] MEDS ORDERED: diphenhydrAMINE 50 MG/ML VIAL IV ×2 (08:00)
[2018-03-23 08:02] LABS: POC GLUCOSE 186 mg/dL (70-99)
[2018-03-23] MEDS: DONEPEZIL HCL 5 MG TABLET. PO (12:24)
[2018-03-23] MEDS: glipiZIDE 5 MG TABLET PO (12:24)
[2018-03-23] MEDS: busPIRone 10 MG TABLET. PO (12:24)
[2018-03-23] MEDS: ASCORBIC ACID 500 MG TABLET PO (12:24)
[2018-03-23] MEDS: amLODIPine BESYLATE 10 MG TABLET PO (12:26)
[2018-03-23] MEDS: ISOSORBIDE MONONITRATE ER 30 MG TAB.ER.24H PO (12:27)
[2018-03-23] MEDS: MULTIVITAMIN with MINERAL TABLET. PO (12:27)
[2018-03-23] MEDS: CYANOCOBALAMIN (VITAMIN B-12) 1,000 MCG TABLET. PO (12:27)
[2018-03-23 16:11] LABS: POC GLUCOSE 181 mg/dL (70-99)
== END 2018-03-23 16:30 | DRG 70 ==
LOC: 5 NORTH 15:05
PROC: 5A1D70Z Performance of Urinary Filtration, Intermittent, Less than 6 Hours Per Day (ICD-10-PCS; principal; 2018-03-17)
PROC: 5A1D70Z Performance of Urinary Filtration, Intermittent, Less than 6 Hours Per Day (ICD-10-PCS; 2018-03-21)
PROC: 5A1D70Z Performance of Urinary Filtration, Intermittent, Less than 6 Hours Per Day (ICD-10-PCS; 2018-03-23)
DX: G93.41 Metabolic encephalopathy (principal); N18.6 End stage renal disease; I13.2 Hypertensive heart and chronic kidney disease with heart failure and with stage 5 chronic kidney disease, or end stage renal disease; E11.22 Type 2 diabetes mellitus with diabetic chronic kidney disease; E11.40 Type 2 diabetes mellitus with diabetic neuropathy, unspecified; I50.32 Chronic diastolic (congestive) heart failure; D63.8 Anemia in other chronic diseases classified elsewhere; E78.5 Hyperlipidemia, unspecified; E03.9 Hypothyroidism, unspecified; F03.90 Unspecified dementia, unspecified severity, without behavioral disturbance, psychotic disturbance, mood disturbance, and anxiety; F31.9 Bipolar disorder, unspecified; F41.9 Anxiety disorder, unspecified; H70.92 Unspecified mastoiditis, left ear; K21.9 Gastro-esophageal reflux disease without esophagitis; R62.7 Adult failure to thrive; G47.00 Insomnia, unspecified; M19.90 Unspecified osteoarthritis, unspecified site; Z90.710 Acquired absence of both cervix and uterus; Z91.14 Patient's other noncompliance with medication regimen; Z88.8 Allergy status to other drugs, medicaments and biological substances; Z87.11 Personal history of peptic ulcer disease; Z82.0 Family history of epilepsy and other diseases of the nervous system
CPT/HCPCS: 36415; 70450; 80048; 80053; 81001; 82962; 85025; 85027; 87086; 87340; 97110-GP; 97116-GP; 97162-GP; 97165-GO; J1815

== ENCOUNTER 2018-04-08 20:38 | Emergency (ER) | payer MEDICARE ==
[2018-04-08 23:06] LABS: ADD MAN DIFF? NO
[2018-04-08 23:07] LABS: BASO % 1 % (0-3); EOS # 0.1 x10^3/uL (0.0-0.7); EOS % 3 % (0-3); HEMATOCRIT 32.2 % (36.0-47.0); HEMOGLOBIN 10.8 g/dL (12.0-15.5); LYMPH # 0.9 x10^3/uL (1.0-4.8); LYMPH % 19 % (24-48); MEAN CORPUSCULAR HEMOGLOBIN 29 pg (25-35); MEAN CORPUSCULAR HGB CONC 34 g/dL (31-37); MEAN CORPUSCULAR VOLUME 87 fL (79-100); MONO # 0.3 x10^3/uL (0.0-1.1); MONO % 6 % (0-9); NEUT # 3.4 x10^3uL (1.8-7.7); NEUT % 71 % (31-73); PLATELET COUNT 134 x10^3/uL (140-400); WHITE BLOOD COUNT 4.8 x10^3/uL (4.0-11.0)
[2018-04-08 23:15] LABS: ANION GAP 7 (6-14); BLOOD UREA NITROGEN 11 mg/dL (7-20); BUN/CREATININE RATIO 7 (6-20); CALCIUM 8.1 mg/dL (8.5-10.1); CARBON DIOXIDE 31 mmol/L (21-32); CHLORIDE 101 mmol/L (98-107); CREATININE 1.5 mg/dL (0.6-1.0); GFR 34.2; GLUCOSE 340 mg/dL (70-99); POTASSIUM 3.8 mmol/L (3.5-5.1); SODIUM 139 mmol/L (136-145)
[2018-04-08 23:28] LABS: ALBUMIN 3.2 g/dL (3.4-5.0); ALBUMIN/GLOBULIN RATIO 0.9 (1.0-1.7); ALK PHOS 248 U/L (46-116); ALT (SGPT) 22 U/L (14-59); AST (SGOT) 14 U/L (15-37); TOTAL BILIRUBIN 0.8 mg/dL (0.2-1.0); TOTAL PROTEIN 6.8 g/dL (6.4-8.2)
[2018-04-08] MEDS: diazePAM 5 MG TABLET PO (23:52)
== END 2018-04-09 01:06 | disposition home or self-care (01) ==
LOC: ER 04-09 01:06
DX: F31.9 Bipolar disorder, unspecified (principal); F03.91 Unspecified dementia, unspecified severity, with behavioral disturbance; I12.0 Hypertensive chronic kidney disease with stage 5 chronic kidney disease or end stage renal disease; E11.22 Type 2 diabetes mellitus with diabetic chronic kidney disease; N18.6 End stage renal disease; Z99.2 Dependence on renal dialysis
CPT/HCPCS: 36415; 80053; 85025; 93005; 99285-25

== ENCOUNTER 2018-04-28 14:55 | Emergency (ER) | payer MEDICARE ==
[2018-04-28 15:36] LABS: ADD MAN DIFF? NO
[2018-04-28 15:46] LABS: BASO % 1 % (0-3); EOS # 0.1 x10^3/uL (0.0-0.7); EOS % 2 % (0-3); HEMATOCRIT 35.3 % (36.0-47.0); HEMOGLOBIN 11.8 g/dL (12.0-15.5); LYMPH # 0.7 x10^3/uL (1.0-4.8); LYMPH % 14 % (24-48); MEAN CORPUSCULAR HEMOGLOBIN 30 pg (25-35); MEAN CORPUSCULAR HGB CONC 34 g/dL (31-37); MEAN CORPUSCULAR VOLUME 90 fL (79-100); MONO # 0.2 x10^3/uL (0.0-1.1); MONO % 5 % (0-9); NEUT # 3.5 x10^3uL (1.8-7.7); NEUT % 77 % (31-73); PLATELET COUNT 231 x10^3/uL (140-400); RED BLOOD COUNT 3.94 x10^6/uL (3.50-5.40); RED CELL DISTRIBUTION WIDTH 18.8 % (11.5-14.5); WHITE BLOOD COUNT 4.6 x10^3/uL (4.0-11.0)
[2018-04-28 15:48] LABS: BILIRUBIN,URINE NEGATIVE (NEG); CLARITY,URINE CLEAR; COLOR,URINE YELLOW; GLUCOSE,URINE 500 mg/dL (NEG); NITRITE,URINE NEGATIVE (NEG); PH,URINE 6.5; PROTEIN,URINE >=300 mg/dL (NEG-TRACE)
[2018-04-28 16:02] LABS: AMORPHOUS SEDIMENT,UR PRESENT /HPF; ANION GAP 10 (6-14); BACTERIA,URINE 0 /HPF (0-FEW); BLOOD UREA NITROGEN 22 mg/dL (7-20); BUN/CREATININE RATIO 7 (6-20); CALCIUM 9.1 mg/dL (8.5-10.1); CARBON DIOXIDE 27 mmol/L (21-32); CHLORIDE 97 mmol/L (98-107); GFR 15.4; GLUCOSE 352 mg/dL (70-99); HYALINE CASTS, URINE MODERATE /HPF; POTASSIUM 4.3 mmol/L (3.5-5.1); SODIUM 134 mmol/L (136-145); WBC,URINE 0 /HPF (0-4)
[2018-04-28 16:07] LABS: ALBUMIN 3.5 g/dL (3.4-5.0); ALK PHOS 218 U/L (46-116); ALT (SGPT) 19 U/L (14-59); AST (SGOT) 17 U/L (15-37); TOTAL BILIRUBIN 0.8 mg/dL (0.2-1.0)
== END 2018-04-28 18:50 | disposition home or self-care (01) ==
LOC: ER 14:55
DX: R53.1 Weakness (principal); F31.9 Bipolar disorder, unspecified; F03.90 Unspecified dementia, unspecified severity, without behavioral disturbance, psychotic disturbance, mood disturbance, and anxiety; I12.0 Hypertensive chronic kidney disease with stage 5 chronic kidney disease or end stage renal disease; E11.22 Type 2 diabetes mellitus with diabetic chronic kidney disease; N18.6 End stage renal disease; Z99.2 Dependence on renal dialysis; Z90.710 Acquired absence of both cervix and uterus
CPT/HCPCS: 36415; 51701; 80053; 81001; 85025; 93005; 99285-25

== ENCOUNTER 2019-01-21 12:35 | Inpatient (IN) | payer MEDICARE, OTHER ==
[~2019-01-21] VITALS: Ht 154.9 cm; Wt 61.2 kg
[~2019-01-21 12:35] MED LIST changes: +ACET-704 PO; +ALPR0.5T6 PO; -AMLO10TA2 PO; +AMLO10TA8 PO; +ASCO500T PO; -BENZ0.5T PO; +BENZ0.5T32 PO; +CYAN10005 PO; +DONE10TA7 PO; +ERGO500027 PO; +FAMO20TA5 PO; -FERR-26 PO; +FERR325T14 PO; -GABA-586 PO; +GABA300C18 PO; -HYDR-2758 PO; +HYDR-2761 PO; +INSU100I13 SQ; +INSU100I17 SQ; +INSU100I27 SQ; +LINA5TAB PO; -LINA5TAB4 PO; +LISI-334 PO; +LOSA25TA PO; +MEMA10TA PO; +MENT118G TP; +METF500T16 PO; -METF500T4 PO; +METO5TAB4 PO; +NAPR-514 PO; -NAPR500T4 PO; +NYST15CR2 TP; +NYST15PO9 TP; +ONDA4TAB12 PO; +QUET100T4 PO; +QUET25TA5 PO; +QUET50TA5 PO; +RISP37.5 IM; +TRIA15OI TP
[2019-01-21] MEDS ORDERED: ONDANSETRON PF 4 MG/2 ML VIAL. IV PRN (16:30)
[2019-01-21] MEDS ORDERED: BUSP5TAB PO (17:08)
[2019-01-21] MEDS ORDERED: traMADol 50 MG TABLET PO PRN (17:15)
[2019-01-21] MEDS ORDERED: DOCUSATE SODIUM 100 MG CAPSULE. PO PRN (17:15)
[2019-01-21 17:17] LABS: BASO % 0 % (0-3); EOS # 0.1 x10^3/uL (0.0-0.7); EOS % 2 % (0-3); HEMATOCRIT 26.6 % (36.0-47.0); LYMPH # 0.8 x10^3/uL (1.0-4.8); LYMPH % 13 % (24-48); MEAN CORPUSCULAR HEMOGLOBIN 33 pg (25-35); MEAN CORPUSCULAR HGB CONC 34 g/dL (31-37); MEAN CORPUSCULAR VOLUME 98 fL (79-100); MONO # 0.3 x10^3/uL (0.0-1.1); MONO % 4 % (0-9); NEUT # 4.8 x10^3uL (1.8-7.7); NEUT % 80 % (31-73); PLATELET COUNT 155 x10^3/uL (140-400); RED BLOOD COUNT 2.72 x10^6/uL (3.50-5.40); RED CELL DISTRIBUTION WIDTH 14.6 % (11.5-14.5)
[2019-01-21 17:33] LABS: ALBUMIN 2.9 g/dL (3.4-5.0); ALBUMIN/GLOBULIN RATIO 0.7 (1.0-1.7); CREATININE 6.9 mg/dL (0.6-1.0); GFR 5.9; POTASSIUM 4.8 mmol/L (3.5-5.1); TOTAL BILIRUBIN 0.4 mg/dL (0.2-1.0); TOTAL PROTEIN 6.8 g/dL (6.4-8.2)
[2019-01-21] MEDS ORDERED: CALC667T4 PO (17:44)
[2019-01-21] MEDS ORDERED: METR500T PO (17:44)
[2019-01-21] MEDS ORDERED: DOCU-109 PO (17:44)
[2019-01-21] MEDS ORDERED: TRAM50TA PO (17:44)
[2019-01-21] MEDS ORDERED: ESCITALOPRAM OX10 MG PO (17:44)
[2019-01-21] MEDS ORDERED: LEVO500T59 PO (17:44)
[2019-01-21] MEDS ORDERED: INSU100I13 SQ (17:44)
[2019-01-21] MEDS ORDERED: LINE600T PO (17:44)
[2019-01-21] MEDS ORDERED: MELA3TAB2 PO (17:44)
[2019-01-21] MEDS ORDERED: AMLO5TAB10 PO (17:44)
[2019-01-21] MEDS ORDERED: HYDR59LO TP (17:44)
[2019-01-21] MEDS ORDERED: LOSA100T2 PO (17:44)
[2019-01-21] MEDS ORDERED: TRIAMCINOLONE ACETONIDE 0.1% TOPICAL CREAM 15GM TUBE. TP PRN (18:15)
[2019-01-21] MEDS: INSULIN LISPRO 300 UNITS/3 ML INSULN.PEN. SQ SCH (18:30)
[2019-01-21] MEDS: CALCIUM ACETATE 667 MG CAPSULE PO SCH (18:30)
[2019-01-21 19:46] VITALS: BP 174/73
[2019-01-21] MEDS: busPIRone 5 MG TABLET. PO SCH (20:24)
[2019-01-21] MEDS: metroNIDAZOLE 500 MG TABLET PO SCH (20:24)
[2019-01-21] MEDS: LINEZOLID 600 MG TABLET PO SCH (20:24)
[2019-01-21] MEDS: QUEtiapine 25 MG TABLET. PO SCH (20:24)
[2019-01-21] MEDS: DIVALPROEX DELAYED RELEASE 250 MG TABLET.DR. PO SCH (20:25)
[2019-01-21] MEDS: HYDROCORTISONE 1% TOPICAL CREAM 30GM TUBE. TP SCH (20:26)
[2019-01-21] MEDS: METHYL SALICYLATE/MENTHOL TOPICAL OINTMENT 29GM TUBE. TP SCH (20:26)
[2019-01-21] MEDS: INSULIN GLARGINE 300 UNITS/3 ML INSULN.PEN. SQ SCH (20:31)
[2019-01-21] MEDS ORDERED: NYSTATIN 100,000 UNIT/GM TOPICAL CREAM 15GM TUBE. TP PRN (21:00)
[2019-01-21] MEDS ORDERED: NON FORMULARY ITEM (Melatonin 2 TAB) PO SCH (21:00)
[2019-01-21 23:43] VITALS: BP 162/44
[2019-01-22 03:15] VITALS: BP 150/60
[2019-01-22] MEDS: LEVOTHYROXINE 88 MCG TABLET PO SCH (06:23)
[2019-01-22 07:00] VITALS: BP 158/61
[2019-01-22] MEDS: CALCIUM ACETATE 667 MG CAPSULE PO SCH ×3 (08:00→17:00)
[2019-01-22] MEDS: DIVALPROEX DELAYED RELEASE 250 MG TABLET.DR. PO SCH ×3 (08:49→20:37)
[2019-01-22] MEDS: busPIRone 5 MG TABLET. PO SCH ×3 (08:49→20:35)
[2019-01-22] MEDS: LINEZOLID 600 MG TABLET PO SCH ×2 (08:50→20:36)
[2019-01-22] MEDS: metroNIDAZOLE 500 MG TABLET PO SCH ×3 (08:50→20:37)
[2019-01-22] MEDS: QUEtiapine 25 MG TABLET. PO SCH ×2 (08:50→20:37)
[2019-01-22] MEDS ORDERED: ERGOCALCIFEROL (VITAMIN D2) 50,000 UNIT CAPSULE. PO SCH (09:00)
[2019-01-22] MEDS: HYDROCORTISONE 1% TOPICAL CREAM 30GM TUBE. TP SCH ×2 (09:29→20:46)
[2019-01-22] MEDS: METHYL SALICYLATE/MENTHOL TOPICAL OINTMENT 29GM TUBE. TP SCH ×3 (09:29→20:42)
[2019-01-22] MEDS: INSULIN GLARGINE 300 UNITS/3 ML INSULN.PEN. SQ SCH ×3 (09:33→20:45)
[2019-01-22] MEDS: INSULIN LISPRO 300 UNITS/3 ML INSULN.PEN. SQ SCH ×3 (09:34→17:00)
[2019-01-22 11:00] VITALS: BP 158/61
[2019-01-22] MEDS: LOSARTAN POTASSIUM 50 MG TABLET. PO SCH (11:46)
[2019-01-22] MEDS: amLODIPine BESYLATE 5 MG TABLET PO SCH (11:49)
--- NOTE | 2019-01-22 12:50 | HP ---
ADMIT DATE: CHIEF COMPLAINT AND HISTORY OF PRESENT ILLNESS: This 73-year-old female is well known to me from followup. She is at [facility] currently. I saw her at [place] on the day of admission; she had been refusing dialysis for the entire week. She was becoming sicker with nausea and some vomiting. Very poor p.o. intake and was felt likely to be due to a combination of her holding her psych meds and not taking them regularly as well as no dialysis, and she was directly admitted on the day of admission. PAST MEDICAL HISTORY: Remarkable for severe decrease in hearing. She is labeled with dementia, although I think this is primarily psych with her bipolar depression, which she does very well if she takes her medicines, but if not, she is in trouble. She has end-stage renal disease for which she is on dialysis. She has heart failure, which was remedied by the dialysis. She has a history of hypertension, diabetes, hypothyroidism, anxiety, anemia, gastroesophageal reflux. She has had a prior hysterectomy, history of kidney stones as well as a history of colitis and peptic ulcer disease. MEDICATIONS: Brought with the patient, listed on the computer and have been addressed. ALLERGIES: SHE IS ALLERGIC TO AUGMENTIN. SOCIAL HISTORY: She is a nonsmoker, nondrinker, does not use drugs, is a alf resident. FAMILY HISTORY: Positive for longevity. REVIEW OF SYSTEMS: As mentioned above, she did in addition have one loose stool on the day of admission. PHYSICAL EXAMINATION: GENERAL: She is a well-developed, well-nourished white female, in no acute distress. VITAL SIGNS: Stable. She is afebrile. HEAD, EYES, EARS, NOSE AND THROAT: Unremarkable. NECK: Supple, no adenopathy or thyromegaly. CHEST: Clear to auscultation and percussion. HEART: Regular rate and rhythm with a soft grade 1-2/6 systolic murmur. ABDOMEN: Soft, nontender, without hepatosplenomegaly or mass. EXTREMITIES: Without cyanosis, clubbing, edema. NEUROLOGICAL: Nonfocal. LABORATORY DATA: On admission reveals a BUN of 56, creatinine 6.9, albumin 2.1. Hemoglobin of 9 with normal red cell indices. IMPRESSION: 1. End-stage renal disease without dialysis for a week and resultant azotemia. 2. Normochromic normocytic anemia related to chronic disease. 3. Moderate at least protein-calorie malnutrition. 4. Bipolar depression with not taking meds for a week or so. 5. Diabetes. PLAN: The patient has been admitted. Dialysis will be started. Her meds, I have told nursing are not optional as far as taking. If we can get her back on the psych meds, I believe she will turn around where we can get her back to alf with her agreeing to do dialysis, etc. HOUSTON SILVER MD DR: KARAN/arlette JOB#: [id number] / [id number]
--- NOTE | 2019-01-22 13:31 | PDOC2 ---
CONSULT Date of Consult Date of Consult DATE: 01/22/19 TIME: 13:24 Reason for Consult Reason for Consult: ESRD Source Source: Chart review History of Present Illness Reason for Visit: Pt is a 73-year-old female follows with Dr. Reid . She is at [facility] currently. She has ESRD on HD TTS ,she has been refusing dialysis for the entire week. She was becoming sicker with nausea and some vomiting. Very poor p.o. intake and was felt likely to be due to a combination of her holding her psych meds and not taking them regularly as well as no dialysis, and she was directly admitted to ED. Currently she is sitting up in chair, no complaints, eating lunch Past Medical History Cardiovascular: HTN, Valve insufficiency, Pulmonary hypertension Pulmonary: No pertinent hx CENTRAL NERVOUS SYSTEM: Dementia, Periperal neuropathy GI: GERD, Peptic Ulcer disease Heme/Onc: No pertinent hx Hepatobiliary: No pertinent hx Psych: Bipolar Rheumatologic: No pertinent hx Infectious disease: No pertinent hx Renal/: Chronic renal failure Endocrine: Diabetes Past Surgical History Past Surgical History: Hysterectomy Family History Family History: Alzheimer's Disease Social History ALCOHOL: none Drugs: None Lives: with Family Current Medications Current Medications Current Medications Ondansetron HCl (Zofran) 4 mg PRN Q4HRS PRN IV NAUSEA/VOMITING; Start 01/21/19 at 16:30 Amlodipine Besylate (Norvasc) 5 mg DAILY PO Last administered on 01/22/19at 11: 49; Start 01/22/19 at 09:00 Buspirone HCl (Buspar) 5 mg TID PO Last administered on 01/21/19at 20:24; Start 01/21/19 at 21:00 Divalproex Sodium (Depakote) 250 mg TID PO Last administered on 01/21/19at 20:25 ; Start 01/21/19 at 21:00 Docusate Sodium (Colace) 100 mg PRN DAILY PRN PO CONSTIPATION; Start 01/21/19 at 17:15 Ergocalciferol (Vitamin D2) 50,000 unit WEEKLY PO ; Start 01/22/19 at 09:00 Insulin Glargine (Lantus) 6 units HS SQ Last administered on 01/21/19at 20:31; Start 01/21/19 at 21:00 Insulin Glargine (Lantus) 12 units DAILY08 SQ Last administered on 01/22/19 09 :33; Start 01/22/19 at 08:00 Isosorbide Mononitrate (Imdur) 30 mg DAILY PO ; Start 01/22/19 at 09:00 Levothyroxine Sodium (Synthroid) 88 mcg DAILY06 PO Last administered on at 06:23; Start 01/22/19 at 06:00 Tramadol HCl (Ultram) 50 mg PRN Q8HRS PRN PO PAIN; Start 01/21/19 at 17:15 Calcium Acetate (Phoslo) 667 mg TIDWMEALS PO Last administered on 01/21/19 18: 30; Start 01/21/19 at 18:30 Donepezil HCl (Aricept) 10 mg DAILY PO ; Start 01/22/19 at 09:00 Hydrocortisone (Cortaid) 1 jarvis BID TP Last administered on 01/22/19 09:29; Start 01/21/19 at 21:00 Insulin Human Lispro (HumaLOG) 4 units TIDWMEALS SQ Last administered on at 13:04; Start 01/21/19 at 18:30 Levofloxacin (Levaquin) 500 mg Q48H PO ; Start 01/22/19 at 09:00; Stop 01/27/19 at 08:59 Linezolid (Zyvox) 600 mg BID PO Last administered on 01/21/19 20:24; Start 01/21 at 21:00 Losartan Potassium (Cozaar) 100 mg DAILY PO Last administered on 01/22/19at 11: 46; Start 01/22/19 at 09:00 Non-Formulary Medication (Melatonin ) 2 tab QHS PO ; Start 01/21/19 at 21:00; Status UNV Multi-Ingredient Ointment (Analgesic [place]) 1 jarvis TID TP Last administered on 09:29; Start 01/21/19 at 21:00 Metronidazole (Flagyl) 500 mg TID PO Last administered on 01/21/19 20:24; Start 01/21/19 at 21:00; Stop 01/29/19 at 20:59 Multivitamins (Thera M Plus) 1 tab DAILY PO ; Start 01/22/19 at 09:00 Nystatin (Mycostatin) 1 jarvis PRN BID PRN TP REDNESS; Start 01/21/19 at 21:00 Quetiapine Fumarate (SEROquel) 50 mg BID PO Last administered on 01/21/19at 20:24 ; Start 01/21/19 at 21:00 Triamcinolone Acetonide (Kenalog) 1 jarvis PRN BID PRN TP REDNESS; Start 01/21/19 at 18:15 Active Scripts Active Synthroid (Levothyroxine Sodium) 88 Mcg Tablet 88 Mcg PO DAILY07 Reported Zyvox (Linezolid) 600 Mg Tablet 600 Mg PO BID Levaquin (Levofloxacin) 500 Mg Tablet 1 Tab PO DAILY Cozaar (Losartan Potassium) 100 Mg Tablet 100 Mg PO DAILY take one tablet every Sun, Mon, Wed, and Fri Amlodipine Besylate 5 Mg Tablet 5 Mg PO DAILY take 1 tab every Sun, Mon, Wed, Fri Tramadol Hcl 50 Mg Tablet 50 Mg PO Q8HRS PRN Melatonin 3 Mg Tablet 2 Tab PO QHS Lantus Solostar (Insulin Glargine,Hum.rec.anlog) 100 Unit/1 Ml Insuln.pen 6 Unit SQ HS Hydrocortisone 59 Ml Lotion 1 Jarvis TP BID Flagyl (Metronidazole) 500 Mg Tablet 1 Tab PO TID Colace (Docusate Sodium) 100 Mg Capsule 1 Cap PO PRN PRN Calcium Acetate 667 Mg Tablet 667 Mg PO TIDWMEALS Buspirone Hcl 5 Mg Tablet 1 Tab PO TID Seroquel (Quetiapine Fumarate) 50 Mg Tablet 50 Mg PO BID Nystatin-Triamcinolone Cream (Nystatin/Triamcin) 15 Gm Cream..g. 1 Jarvis TP PRN PRN Lantus Solostar (Insulin Glargine,Hum.rec.anlog) 100 Unit/1 Ml Insuln.pen 12 Unit SQ DAILY08 Depakote Er (Divalproex Sodium) 250 Mg Tab.er.24h 250 Mg PO TID Biofreeze (Menthol) 118 Ml Gel..ml. 118 Ml TP TID Novolog Flexpen (Insulin Aspart) 100 Unit/1 Ml Insuln.pen 4 Unit SQ TIDWMEALS Vitamin D2 (Ergocalciferol (Vitamin D2)) 50,000 Unit Capsule 50,000 Unit PO DAILY Donepezil Hcl 10 Mg Tablet 10 Mg PO DAILY Isosorbide Mononitrate Er (Isosorbide Mononitrate) 30 Mg Tab.er.24h 1 Tab PO DAILY Multivitamins (Multivitamin) 1 Each Tablet 1 Tab PO DAILY Allergies Allergies: Coded Allergies: amoxicillin (Verified Allergy, Intermediate, 05/13/18) clavulanic acid (Verified Allergy, Intermediate, 05/13/18) ROS Review of System As per HPI Physical Exam Physical Exam GENERAL: NAD HEENT: Unremarkable. NECK: Supple, HEART: Regular rate and rhythm with a soft grade 1-2/6 systolic murmur LUNGS: CTA bilat , Non labored ABDOMEN: Soft, nontender EXTREMITIES: No Edema NEUROLOGICAL: Nonfocal - No Olmedo . Vital Signs Vital Signs Date Time Temp Pulse Resp B/P (MAP) Pulse Ox O2 Delivery O2 Flow Rate FiO2 01/22/19 11:49 66 158/61 01/22/19 11:00 97.6 18 100 Room Air 97.6 Assessment & Plan ESRD- TTS- Non compliance Last HD approx 1 week back, refuses to go E-Lytes and acid base stable yesterday , clinically stable No labs ordered today Currently no emergent indication for HD Anemia- HOSEA Bipolar depression- not taking meds for a week or so. Diabetes- as per primary Discussed with RN Labs Labs Laboratory Tests Test 01/21/19 15:32 01/21/19 16:58 01/21/19 20:03 01/21/19 20:30 Glucose (Fingerstick) 97 mg/dL (70-99) 150 mg/dL (70-99) 150 mg/dL (70-99) White Blood Count 6.0 x10^3/uL (4.0-11.0) Red Blood Count 2.72 x10^6/uL (3.50-5.40) Hemoglobin 9.0 g/dL (12.0-15.5) Hematocrit 26.6 % (36.0-47.0) Mean Corpuscular Volume 98 fL (79-100) Mean Corpuscular Hemoglobin 33 pg (25-35) Mean Corpuscular Hemoglobin Concent 34 g/dL (31-37) Red Cell Distribution Width 14.6 % (11.5-14.5) Platelet Count 155 x10^3/uL (140-400) Neutrophils (%) (Auto) 80 % (31-73) Lymphocytes (%) (Auto) 13 % (24-48) Monocytes (%) (Auto) 4 % (0-9) Eosinophils (%) (Auto) 2 % (0-3) Basophils (%) (Auto) 0 % (0-3) Neutrophils # (Auto) 4.8 x10^3uL (1.8-7.7) Lymphocytes # (Auto) 0.8 x10^3/uL (1.0-4.8) Monocytes # (Auto) 0.3 x10^3/uL (0.0-1.1) Eosinophils # (Auto) 0.1 x10^3/uL (0.0-0.7) Basophils # (Auto) 0.0 x10^3/uL (0.0-0.2) Sodium Level 138 mmol/L (136-145) Potassium Level 4.8 mmol/L (3.5-5.1) Chloride Level 100 mmol/L (98-107) Carbon Dioxide Level 27 mmol/L (21-32) Anion Gap 11 (6-14) Blood Urea Nitrogen 56 mg/dL (7-20) Creatinine 6.9 mg/dL (0.6-1.0) Estimated GFR (Cockcroft-Gault) 5.9 BUN/Creatinine Ratio 8 (6-20) Glucose Level 93 mg/dL (70-99) Calcium Level 9.0 mg/dL (8.5-10.1) Total Bilirubin 0.4 mg/dL (0.2-1.0) Aspartate Amino Transf (AST/SGOT) 16 U/L (15-37) Alanine Aminotransferase (ALT/SGPT) 10 U/L (14-59) Alkaline Phosphatase 95 U/L (46-116) Total Protein 6.8 g/dL (6.4-8.2) Albumin 2.9 g/dL (3.4-5.0) Albumin/Globulin Ratio 0.7 (1.0-1.7) Test 01/22/19 07:05 01/22/19 08:08 01/22/19 11:20 Glucose (Fingerstick) 55 mg/dL (70-99) 128 mg/dL (70-99) 118 mg/dL (70-99) Laboratory Tests Test 01/21/19 15:32 01/21/19 16:58 01/21/19 20:03 01/21/19 20:30 Glucose (Fingerstick) 97 mg/dL (70-99) 150 mg/dL (70-99) 150 mg/dL (70-99) White Blood Count 6.0 x10^3/uL (4.0-11.0) Red Blood Count 2.72 x10^6/uL (3.50-5.40) Hemoglobin 9.0 g/dL (12.0-15.5) Hematocrit 26.6 % (36.0-47.0) Mean Corpuscular Volume 98 fL (79-100) Mean Corpuscular Hemoglobin 33 pg (25-35) Mean Corpuscular Hemoglobin Concent 34 g/dL (31-37) Red Cell Distribution Width 14.6 % (11.5-14.5) Platelet Count 155 x10^3/uL (140-400) Neutrophils (%) (Auto) 80 % (31-73) Lymphocytes (%) (Auto) 13 % (24-48) Monocytes (%) (Auto) 4 % (0-9) Eosinophils (%) (Auto) 2 % (0-3) Basophils (%) (Auto) 0 % (0-3) Neutrophils # (Auto) 4.8 x10^3uL (1.8-7.7) Lymphocytes # (Auto) 0.8 x10^3/uL (1.0-4.8) Monocytes # (Auto) 0.3 x10^3/uL (0.0-1.1) Eosinophils # (Auto) 0.1 x10^3/uL (0.0-0.7) Basophils # (Auto) 0.0 x10^3/uL (0.0-0.2) Sodium Level 138 mmol/L (136-145) Potassium Level 4.8 mmol/L (3.5-5.1) Chloride Level 100 mmol/L (98-107) Carbon Dioxide Level 27 mmol/L (21-32) Anion Gap 11 (6-14) Blood Urea Nitrogen 56 mg/dL (7-20) Creatinine 6.9 mg/dL (0.6-1.0) Estimated GFR (Cockcroft-Gault) 5.9 BUN/Creatinine Ratio 8 (6-20) Glucose Level 93 mg/dL (70-99) Calcium Level 9.0 mg/dL (8.5-10.1) Total Bilirubin 0.4 mg/dL (0.2-1.0) Aspartate Amino Transf (AST/SGOT) 16 U/L (15-37) Alanine Aminotransferase (ALT/SGPT) 10 U/L (14-59) Alkaline Phosphatase 95 U/L (46-116) Total Protein 6.8 g/dL (6.4-8.2) Albumin 2.9 g/dL (3.4-5.0) Albumin/Globulin Ratio 0.7 (1.0-1.7) Test 01/22/19 07:05 01/22/19 08:08 01/22/19 11:20 Glucose (Fingerstick) 55 mg/dL (70-99) 128 mg/dL (70-99) 118 mg/dL (70-99) Review All relevant outside records, renal labs, imaging studies, telemetry/EKG's were reviewed. JUAN CARLOS SONI MD Jan 22, 2019 13:31
[2019-01-22 15:00] VITALS: BP 155/48
[2019-01-22] MEDS: ISOSORBIDE MONONITRATE ER 30 MG TAB.ER.24H PO SCH (15:08)
[2019-01-22] MEDS: MULTIVITAMIN with MINERAL TABLET. PO SCH (15:08)
[2019-01-22] MEDS: DONEPEZIL HCL 10 MG TABLET. PO SCH (15:08)
--- NOTE | 2019-01-22 17:10 | NUR ---
FSBS at 1645 was 38. 1amp D50% given per protocol. FSBS at 1705 was 146. Spoke to Dr Reid. Received orders.
[2019-01-22] MEDS ORDERED: DEXTROSE 50% 25 GM / 50ML DISP.SYRIN. IV ONE (18:15)
[2019-01-22 19:25] VITALS: BP 166/43
[2019-01-22] MEDS: LACTOBACILLUS RHAMNOSUS GG 1 CAPSULE. PO SCH (20:37)
[2019-01-22 23:44] VITALS: BP 142/47
--- NOTE | 2019-01-23 02:21 | PN ---
DATE: 01/22/2019 LOCATION: She is in room 674. SUBJECTIVE: The patient is awake, alert, getting ready to have dialysis this morning. OBJECTIVE: VITAL SIGNS: Stable. She is afebrile. She is anorexic. CHEST: Clear. HEART: Regular. ABDOMEN: Benign. She has taken her medicines since admission. IMPRESSION: 1. End-stage renal disease with azotemia after missing dialysis for a week. 2. Bipolar depression, not taking medications, probably causing the majority of the dialysis missing for the week. 3. Symptoms of azotemia with nausea, vomiting and anorexia. 4. Diabetes with decent blood sugars since admission. PLAN: Continue present care, get started on dialysis, medications encouraged, and she agrees she will take them, otherwise same. HOUSTON SILVER MD DR: KARAN/arlette JOB#: [id number] / [id number]
[2019-01-23 03:11] VITALS: BP 142/48
[2019-01-23] MEDS: LEVOTHYROXINE 88 MCG TABLET PO SCH (05:42)
[2019-01-23 07:00] VITALS: BP 160/47
[2019-01-23] MEDS ORDERED: IV NORMAL SALINE 1000ML BAG 1,000 ML IV PRN ×2 (07:50)
[2019-01-23] MEDS ORDERED: ACETAMINOPHEN 500 MG TABLET PO PRN (08:00)
[2019-01-23] MEDS ORDERED: diphenhydrAMINE 50 MG/ML VIAL IV PRN ×2 (08:00)
[2019-01-23] MEDS: INSULIN LISPRO 300 UNITS/3 ML INSULN.PEN. SQ SCH ×3 (08:00→17:00)
[2019-01-23] MEDS: INSULIN GLARGINE 300 UNITS/3 ML INSULN.PEN. SQ SCH ×3 (08:00→21:49)
[2019-01-23] MEDS ORDERED: DIALYSIS PATIENT. MC PRN (08:00)
[2019-01-23] MEDS ORDERED: ALBUMIN HUMAN 25% 200 ML IV PRN (08:00)
[2019-01-23] MEDS: CALCIUM ACETATE 667 MG CAPSULE PO SCH ×3 (08:25→17:33)
[2019-01-23] MEDS: MULTIVITAMIN with MINERAL TABLET. PO SCH (08:26)
[2019-01-23] MEDS: metroNIDAZOLE 500 MG TABLET PO SCH ×3 (08:26→21:44)
[2019-01-23] MEDS: LACTOBACILLUS RHAMNOSUS GG 1 CAPSULE. PO SCH ×2 (08:26→21:45)
[2019-01-23] MEDS: busPIRone 5 MG TABLET. PO SCH ×3 (08:26→21:45)
[2019-01-23] MEDS: DIVALPROEX DELAYED RELEASE 250 MG TABLET.DR. PO SCH ×3 (08:26→21:45)
[2019-01-23] MEDS: LINEZOLID 600 MG TABLET PO SCH ×2 (08:26→21:45)
[2019-01-23] MEDS: LOSARTAN POTASSIUM 50 MG TABLET. PO SCH (08:27)
[2019-01-23] MEDS: DONEPEZIL HCL 10 MG TABLET. PO SCH (08:27)
[2019-01-23] MEDS: amLODIPine BESYLATE 5 MG TABLET PO SCH (08:28)
[2019-01-23] MEDS: QUEtiapine 25 MG TABLET. PO SCH ×2 (08:28→21:44)
[2019-01-23] MEDS: ISOSORBIDE MONONITRATE ER 30 MG TAB.ER.24H PO SCH (08:29)
[2019-01-23] MEDS: HYDROCORTISONE 1% TOPICAL CREAM 30GM TUBE. TP SCH ×2 (08:32→21:45)
[2019-01-23] MEDS: METHYL SALICYLATE/MENTHOL TOPICAL OINTMENT 29GM TUBE. TP SCH ×3 (08:32→21:45)
--- NOTE | 2019-01-23 09:23 | NUR ---
SW following pt for anticipated dc needs. Chart reviewed. Pt is LTC resident at [facility], phone: [phone], fax: [phone] and will return upon dc. Lanny from [facility] confirmed plan. Will continue follow.
[2019-01-23 10:49] LABS: CALCIUM 8.8 mg/dL (8.5-10.1); CREATININE 7.2 mg/dL (0.6-1.0); GFR 5.6; POTASSIUM 4.4 mmol/L (3.5-5.1)
[2019-01-23] MEDS: FLUCONAZOLE 100 MG TABLET. PO SCH (13:51)
[2019-01-23 15:00] VITALS: BP 168/63
--- NOTE | 2019-01-23 15:55 | PDOC ---
Renal-Progress Notes Subjective Notes Notes BETTER History of Present Illness Hx of present illness LESS DIARRHEA Vitals Vitals Vital Signs Date Time Temp Pulse Resp B/P (MAP) Pulse Ox O2 Delivery O2 Flow Rate FiO2 01/23/19 15:00 97.9 80 16 168/63 (98) 100 Room Air 97.9 Weight Weight [ ] I.O. Intake and Output Intake and Output 01/23/19 06:59 Intake Total 625 ml Balance 625 ml Intake Oral 625 ml # Voids 7 Labs Labs Laboratory Tests Test 01/22/19 16:41 01/22/19 17:06 01/22/19 19:59 01/23/19 05:41 Glucose (Fingerstick) 38 mg/dL (70-99) 146 mg/dL (70-99) 157 mg/dL (70-99) 92 mg/dL (70-99) Test 01/23/19 07:29 01/23/19 08:50 01/23/19 13:59 Glucose (Fingerstick) 86 mg/dL (70-99) 55 mg/dL (70-99) Sodium Level 139 mmol/L (136-145) Potassium Level 4.4 mmol/L (3.5-5.1) Chloride Level 100 mmol/L (98-107) Carbon Dioxide Level 27 mmol/L (21-32) Anion Gap 12 (6-14) Blood Urea Nitrogen 58 mg/dL (7-20) Creatinine 7.2 mg/dL (0.6-1.0) Estimated GFR (Cockcroft-Gault) 5.6 Glucose Level 98 mg/dL (70-99) Calcium Level 8.8 mg/dL (8.5-10.1) Review of Systems Constitutional: yes: alert, oriented Ears/Nose/Throat: Yes: no symptom reported Eyes: Yes: no symptom reported Pulmonary: Yes no symptom reported Cardiovascular: Yes no symptom reported Gastrointestional: Yes: diarrhea Musculoskeletal: Yes: muscle stiffness Skin: Yes no symptom reported Psychiatric/Neurological: Yes: no symptom reported Endocrine: Yes: no symptom reported Physical Exam General Appearance: no apparent distress Skin: warm Respiratory: bilateral CTA Heart: S1S2, RRR Abdomen: soft, bowel sounds present Genitourinary: bladder flat Neurology: alert, oriented Assessment Assessment IMP ESRD BIPOLAR ANEMIA DM II HTN PLAN HD TODAY UF TO DW WILL FOLLOW CARMEN PAGE MD Jan 23, 2019 15:55
[2019-01-23 19:00] VITALS: BP 143/45
--- NOTE | 2019-01-23 21:48 | PDOC ---
GENERAL General: vss and afebrile. awake and alert and feels better. sugars decent. appetite returning. mood better. dialysis again today. likely dc am on regular meds. VITAL SIGNS Vital Signs: Vital Signs Date Time Temp Pulse Resp B/P (MAP) Pulse Ox O2 Delivery O2 Flow Rate FiO2 01/23/19 19:00 98.0 63 18 143/45 (77) 100 Room Air 98.0 I & O I & O Intake and Output 01/23/19 07:00 Intake Total 625 ml Balance 625 ml Intake Oral 625 ml # Voids 7 ALLERGIES Allergies: Allergies Coded Allergies Type Severity Reaction Last Updated Verified amoxicillin Allergy Intermediate 05/13/18 Yes clavulanic acid Allergy Intermediate 05/13/18 Yes MEDS Medications: Current Medications Medications (Trade) Dose Ordered Sig/Angeles Start Time Stop Time Status Last Admin Dose Admin Acetaminophen (Tylenol) 500 mg 1X PRN PRN 01/23/19 08:00 01/24/19 07:59 Albumin Human 200 ml @ 200 mls/hr 1X PRN PRN 01/23/19 08:00 01/23/19 13:59 DC Amlodipine Besylate (Norvasc) 5 mg DAILY 01/22/19 09:00 01/23/19 08:28 5 MG Buspirone HCl (Buspar) 5 mg TID 01/21/19 21:00 01/23/19 08:26 5 MG Calcium Acetate (Phoslo) 667 mg TIDWMEALS 01/21/19 18:30 01/23/19 17:33 667 MG Dextrose (Dextrose 50%-Water Syringe) 25 gm 1X ONCE 01/22/19 18:15 01/22/19 18:17 DC 01/22/19 16:45 25 GM Diphenhydramine HCl (Benadryl) 25 mg 1X PRN PRN 01/23/19 08:00 01/24/19 07:59 Divalproex Sodium (Depakote) 250 mg TID 01/21/19 21:00 01/23/19 08:26 250 MG Docusate Sodium (Colace) 100 mg PRN DAILY PRN 01/21/19 17:15 Donepezil HCl (Aricept) 10 mg DAILY 01/22/19 09:00 01/23/19 08:27 10 MG Ergocalciferol (Vitamin D2) 50,000 unit WEEKLY 01/22/19 09:00 01/22/19 15:09 50,000 UNIT Fluconazole (Diflucan) 100 mg DAILY 01/23/19 09:00 01/23/19 13:51 100 MG Hydrocortisone (Cortaid) 1 alex BID 01/21/19 21:00 01/22/19 09:29 1 ALEX Info (PHARMACY MONITORING -- do not chart) 1 each PRN DAILY PRN 01/23/19 08:00 Insulin Glargine (Lantus) 6 units DAILY08 01/23/19 08:00 Insulin Human Lispro (HumaLOG) 4 units TIDWMEALS 01/21/19 18:30 01/22/19 13:04 4 UNITS Isosorbide Mononitrate (Imdur) 30 mg DAILY 01/22/19 09:00 01/23/19 08:29 30 MG Lactobacillus Rhamnosus (Culturelle) 1 cap BID 01/22/19 21:00 01/23/19 08:26 1 CAP Levofloxacin (Levaquin) 500 mg Q48H 01/22/19 09:00 01/27/19 08:59 01/22/19 15:08 500 MG Levothyroxine Sodium (Synthroid) 88 mcg DAILY06 01/22/19 06:00 01/23/19 05:42 88 MCG Linezolid (Zyvox) 600 mg BID 01/21/19 21:00 01/24/19 21:59 01/23/19 08:26 600 MG Losartan Potassium (Cozaar) 100 mg DAILY 01/22/19 09:00 01/23/19 08:27 100 MG Metronidazole (Flagyl) 500 mg TID 01/21/19 21:00 01/29/19 20:59 01/23/19 08:26 500 MG Multi-Ingredient Ointment (Analgesic [place]) 1 alex TID 01/21/19 21:00 01/23/19 08:32 1 ALEX Multivitamins (Thera M Plus) 1 tab DAILY 01/22/19 09:00 01/23/19 08:26 1 TAB Non-Formulary Medication (Melatonin ) 2 tab QHS 01/21/19 21:00 UNV Nystatin (Mycostatin) 1 alex PRN BID PRN 01/21/19 21:00 Ondansetron HCl (Zofran) 4 mg PRN Q4HRS PRN 01/21/19 16:30 Quetiapine Fumarate (SEROquel) 50 mg BID 01/21/19 21:00 01/23/19 08:28 50 MG Sodium Chloride 1,000 ml @ 400 mls/hr Q2H30M PRN 01/23/19 07:50 01/23/19 19:49 DC Tramadol HCl (Ultram) 50 mg PRN Q8HRS PRN 01/21/19 17:15 01/22/19 20:36 50 MG Triamcinolone Acetonide (Kenalog) 1 alex PRN BID PRN 01/21/19 18:15 LAB Lab: Laboratory Tests Test 01/23/19 05:41 01/23/19 07:29 01/23/19 08:50 01/23/19 13:59 Glucose (Fingerstick) 92 mg/dL (70-99) 86 mg/dL (70-99) 55 mg/dL (70-99) Sodium Level 139 mmol/L (136-145) Potassium Level 4.4 mmol/L (3.5-5.1) Chloride Level 100 mmol/L (98-107) Carbon Dioxide Level 27 mmol/L (21-32) Anion Gap 12 (6-14) Blood Urea Nitrogen 58 mg/dL (7-20) Creatinine 7.2 mg/dL (0.6-1.0) Estimated GFR (Cockcroft-Gault) 5.6 Glucose Level 98 mg/dL (70-99) Calcium Level 8.8 mg/dL (8.5-10.1) Test 01/23/19 16:20 01/23/19 19:39 Glucose (Fingerstick) 147 mg/dL (70-99) 221 mg/dL (70-99) HOUSTON SILVER MD Jan 23, 2019 21:48
[2019-01-23 23:08] VITALS: BP 121/42
[2019-01-24 03:00] VITALS: BP 133/44
[2019-01-24] MEDS: LEVOTHYROXINE 88 MCG TABLET PO SCH (05:59)
[2019-01-24 07:00] VITALS: BP 157/54
[2019-01-24] MEDS: INSULIN GLARGINE 300 UNITS/3 ML INSULN.PEN. SQ SCH (08:00)
[2019-01-24] MEDS: INSULIN LISPRO 300 UNITS/3 ML INSULN.PEN. SQ SCH ×2 (08:00→12:00)
[2019-01-24] MEDS: LOSARTAN POTASSIUM 50 MG TABLET. PO SCH (09:37)
[2019-01-24] MEDS: LINEZOLID 600 MG TABLET PO SCH (09:38)
[2019-01-24] MEDS: FLUCONAZOLE 100 MG TABLET. PO SCH (09:38)
[2019-01-24] MEDS: metroNIDAZOLE 500 MG TABLET PO SCH (09:38)
[2019-01-24] MEDS: LACTOBACILLUS RHAMNOSUS GG 1 CAPSULE. PO SCH (09:38)
[2019-01-24] MEDS: amLODIPine BESYLATE 5 MG TABLET PO SCH (09:38)
[2019-01-24] MEDS: CALCIUM ACETATE 667 MG CAPSULE PO SCH ×2 (09:38→12:47)
[2019-01-24] MEDS: MULTIVITAMIN with MINERAL TABLET. PO SCH (09:38)
[2019-01-24] MEDS: busPIRone 5 MG TABLET. PO SCH ×2 (09:38→12:47)
[2019-01-24] MEDS: QUEtiapine 25 MG TABLET. PO SCH (09:38)
[2019-01-24] MEDS: DONEPEZIL HCL 10 MG TABLET. PO SCH (09:39)
[2019-01-24] MEDS: DIVALPROEX DELAYED RELEASE 250 MG TABLET.DR. PO SCH ×2 (09:39→12:47)
[2019-01-24] MEDS: ISOSORBIDE MONONITRATE ER 30 MG TAB.ER.24H PO SCH (09:39)
[2019-01-24] MEDS: METHYL SALICYLATE/MENTHOL TOPICAL OINTMENT 29GM TUBE. TP SCH (09:45)
[2019-01-24] MEDS: HYDROCORTISONE 1% TOPICAL CREAM 30GM TUBE. TP SCH (09:45)
--- NOTE | 2019-01-24 10:55 | DS ---
DATE OF DISCHARGE: 01/24/2019 PRIMARY DIAGNOSIS: Azotemia. ADDITIONAL DIAGNOSES: 1. End-stage renal disease with missed dialysis. 2. Normochromic normocytic anemia. 3. Diabetes. 4. Protein-calorie malnutrition. 5. Bipolar depression, was not taking medication regularly for the last week or so and psychiatric overlay. CHIEF COMPLAINT AND HISTORY OF PRESENT ILLNESS: This is a 73-year-old female who was admitted after a week of missing dialysis most likely related to psych issues by holding her medication, but getting sick from the same with nausea, vomiting, anorexia, etc. SUMMARY OF STAY: The patient was admitted, restarted meds, which she took, received dialysis with improvement in her symptomatology where she was eating well again and it was felt she could go back to group home with encouragement, which she agreed to do, take her meds on a regular basis and her dialysis. DISPOSITION: The patient is discharged back to group home. ADA diet, activity as tolerated. MEDICATIONS: Listed on the med rec and we will continue to follow her there. HOUSTON SILVER MD DR: KARAN/arlette JOB#: [id number] / [id number]
[2019-01-24 11:00] VITALS: BP 156/53
--- NOTE | 2019-01-24 11:29 | PDOC ---
Renal-Progress Notes Subjective Notes Notes DOING WELL History of Present Illness Hx of present illness BETTER Vitals Vitals Vital Signs Date Time Temp Pulse Resp B/P (MAP) Pulse Ox O2 Delivery O2 Flow Rate FiO2 01/24/19 09:39 77 157/54 01/24/19 07:00 97.6 18 99 Room Air 97.6 Weight Weight [ ] I.O. Intake and Output Intake and Output 01/24/19 07:00 Intake Total 480 ml Balance 480 ml Intake Oral 480 ml # Voids 1 Labs Labs Laboratory Tests Test 01/23/19 13:59 01/23/19 16:20 01/23/19 19:39 01/24/19 07:35 Glucose (Fingerstick) 55 mg/dL (70-99) 147 mg/dL (70-99) 221 mg/dL (70-99) 77 mg/dL (70-99) Review of Systems Constitutional: yes: alert, oriented Ears/Nose/Throat: Yes: no symptom reported Eyes: Yes: no symptom reported Pulmonary: Yes no symptom reported Cardiovascular: Yes no symptom reported Gastrointestional: Yes: diarrhea Musculoskeletal: Yes: muscle stiffness Skin: Yes no symptom reported Psychiatric/Neurological: Yes: no symptom reported Endocrine: Yes: no symptom reported Physical Exam General Appearance: no apparent distress Skin: warm Respiratory: bilateral CTA Heart: S1S2, RRR Abdomen: soft, bowel sounds present Genitourinary: bladder flat Neurology: alert, oriented Assessment Assessment IMP ESRD BIPOLAR ANEMIA DM II HTN PLAN D/C PLANS NOTED HD TOMORROW OP WILL FOLLOW HER AT HD UNIT CARMEN PAGE MD Jan 24, 2019 11:29
--- NOTE | 2019-01-24 12:40 | NUR ---
ASHA following pt. ASHA phoned and faxed orders to [facility]. RN reported pt's son is going to take pt back to facility. Packet on chart. Facility notified about transportation.
--- NOTE | 2019-01-24 14:14 | NUR ---
Discharge Note: HECTOR GRESHAM Discharge instructions and discharge home medications reviewed with Other facility and a copy given. All questions have been answered and understanding verbalized. The following instructions and handouts were given: Report called to Heladio nurse at [facility]. Diet, activity, medication list addressed. Patient's son here to transport patient back to LTC. Discontinued lines and drains: Peripheral IV discontinued and catheter intact. Patient discharged to [facility] with Family Member via Wheelchair
== END 2019-01-24 14:00 | disposition home or self-care (01) | DRG 291 ==
LOC: 6 SOUTH 14:29
PROVIDERS: ADMIT Family Medicine; ATTEND Family Medicine
PROC: 5A1D70Z Performance of Urinary Filtration, Intermittent, Less than 6 Hours Per Day (ICD-10-PCS; principal; 2019-01-23)
DX: I13.2 Hypertensive heart and chronic kidney disease with heart failure and with stage 5 chronic kidney disease, or end stage renal disease (principal); N18.6 End stage renal disease; E44.0 Moderate protein-calorie malnutrition; F31.30 Bipolar disorder, current episode depressed, mild or moderate severity, unspecified; R79.89 Other specified abnormal findings of blood chemistry; I50.9 Heart failure, unspecified; E11.22 Type 2 diabetes mellitus with diabetic chronic kidney disease; E03.9 Hypothyroidism, unspecified; I27.20 Pulmonary hypertension, unspecified; D63.8 Anemia in other chronic diseases classified elsewhere; F03.90 Unspecified dementia, unspecified severity, without behavioral disturbance, psychotic disturbance, mood disturbance, and anxiety; K21.9 Gastro-esophageal reflux disease without esophagitis; F41.9 Anxiety disorder, unspecified; Z82.0 Family history of epilepsy and other diseases of the nervous system; Z87.442 Personal history of urinary calculi; Z90.710 Acquired absence of both cervix and uterus; Z91.15 Patient's noncompliance with renal dialysis; Z87.11 Personal history of peptic ulcer disease; Z99.2 Dependence on renal dialysis; Z68.25 Body mass index [BMI] 25.0-25.9, adult; Z88.8 Allergy status to other drugs, medicaments and biological substances
CPT/HCPCS: 36415; 80048; 80053; 82962; 85025; 87641; J1815; J7042

== ENCOUNTER 2019-04-03 13:08 | Emergency (ER) | payer MEDICARE, MEDICAID ==
[~2019-04-03] VITALS: Ht 154.9 cm; Wt 61.2 kg
[~2019-04-03 13:08] MED LIST changes: +AMLO5TAB10 PO; +BUSP5TAB PO; +CALC667T4 PO; +DOCU-109 PO; +ESCITALOPRAM OX10 MG PO; +HYDR59LO TP; +LEVO500T59 PO; +LINE600T PO; +LOSA100T2 PO; +METR500T PO; +TRAM50TA PO
[2019-04-03 14:30] LABS: BASO % 1 % (0-3); EOS # 0.2 x10^3/uL (0.0-0.7); EOS % 5 % (0-3); HEMATOCRIT 40.1 % (36.0-47.0); LYMPH # 1.3 x10^3/uL (1.0-4.8); LYMPH % 34 % (24-48); MEAN CORPUSCULAR HEMOGLOBIN 31 pg (25-35); MEAN CORPUSCULAR HGB CONC 33 g/dL (31-37); MEAN CORPUSCULAR VOLUME 97 fL (79-100); MONO # 0.3 x10^3/uL (0.0-1.1); MONO % 7 % (0-9); NEUT # 2.2 x10^3uL (1.8-7.7); NEUT % 55 % (31-73); PLATELET COUNT 153 x10^3/uL (140-400); RED BLOOD COUNT 4.15 x10^6/uL (3.50-5.40); RED CELL DISTRIBUTION WIDTH 17.7 % (11.5-14.5)
[2019-04-03 14:44] LABS: CALCIUM 8.6 mg/dL (8.5-10.1); CREATININE 5.5 mg/dL (0.6-1.0); GFR 7.6; POTASSIUM 4.3 mmol/L (3.5-5.1)
[2019-04-03 14:54] LABS: ALBUMIN 3.5 g/dL (3.4-5.0); ALBUMIN/GLOBULIN RATIO 0.9 (1.0-1.7); TOTAL BILIRUBIN 0.4 mg/dL (0.2-1.0); TOTAL PROTEIN 7.4 g/dL (6.4-8.2)
[2019-04-03 15:30] VITALS: BP 141/55
[2019-04-03 15:30] LABS: BILIRUBIN,URINE NEGATIVE (NEG); CLARITY,URINE CLOUDY; COLOR,URINE YELLOW; NITRITE,URINE NEGATIVE (NEG); PH,URINE 7.5; PROTEIN,URINE >=300 mg/dL (NEG-TRACE); UROBILINOGEN,URINE 0.2 mg/dL (0.2 mg/dL)
[2019-04-03 15:37] LABS: BACTERIA,URINE 0 /HPF (0-FEW); RBC,URINE OCC /HPF (0-2); SQUAMOUS EPITHELIAL CELL,UR OCC /LPF
[2019-04-03 15:38] LABS: GRANULAR CASTS,URINE OCCASIONAL /HPF; HYALINE CASTS, URINE OCCASIONAL /HPF
--- NOTE | 2019-04-03 15:56 | PHYS DOC ---
Past Medical History Past Medical History: Anemia, Anxiety, Arthritis, Bipolar, CHF, Dementia, Depression, Diabetes-Type II, GERD, High Cholesterol, Hypertension, Hypothyroid, Renal Failure Past Surgical History: Hysterectomy Additional Past Surgical Histo: DIALYSIS SHUNT/FISTULA LEFT SIDE Alcohol Use: None Drug Use: None Adult General Chief Complaint Chief Complaint: DIZZY/LIGHT HEADED HPI HPI Patient is a 74 year old female history of hypertension end-stage renal disease hemodialysis Wednesday schizophrenia and dementia who is presenting with basically elevated blood pressures at home and then also complained of son thinks it is just not exactly the way she normally should be. She is little confused at times not making sense exactly the way she should be. He thinks maybe she might have a urinary tract infection he called Dr. Reid who advised ER evaluation. no chest pain. Review of Systems Review of Systems Constitutional: Denies fever or chills [] Eyes: Denies change in visual acuity, redness, or eye pain [] HENT: Denies nasal congestion or sore throat [] Respiratory: Denies cough or shortness of breath [] Musculoskeletal: Denies back pain or joint pain [] Integument: Denies rash or skin lesions [] Neurologic: Denies headache, focal weakness or sensory changes [] Endocrine: Denies polyuria or polydipsia [] All other systems were reviewed and found to be within normal limits, except as documented in this note. Allergies Allergies Allergies Coded Allergies Type Severity Reaction Last Updated Verified amoxicillin Allergy Intermediate 05/13/18 Yes clavulanic acid Allergy Intermediate 05/13/18 Yes Physical Exam Physical Exam Constitutional: Well developed, well nourished, no acute distress, non-toxic appearance. [] HENT: Normocephalic, atraumatic, bilateral external ears normal, oropharynx moist, no oral exudates, nose normal. [] Eyes: PERRLA, EOMI, conjunctiva normal, no discharge. [] Neck: Normal range of motion, no tenderness, supple, no stridor. [] Cardiovascular:Heart rate regular rhythm, 3-6 systolic ejection murmur best heard at the left upper sternal border Lungs & Thorax: Bilateral breath sounds clear to auscultation [] Abdomen: Bowel sounds normal, soft, no tenderness, no masses, no pulsatile masses. [] Skin: Warm, dry, no erythema, no rash. [] Back: No tenderness, no CVA tenderness. [] Extremities: No tenderness, no cyanosis, no clubbing, ROM intact, no edema. [] Neurologic: Alert and oriented X 3, normal motor function, normal sensory function, no focal deficits noted. [] Psychologic: Affect is slightly blunted but patient is calm and cooperative Current Patient Data Vital Signs Vital Signs Date Time Temp Pulse Resp B/P (MAP) Pulse Ox O2 Delivery O2 Flow Rate FiO2 04/03/19 15:30 62 100 04/03/19 13:39 98.0 17 176/66 (102) Room Air 98.0 Lab Values Laboratory Tests Test 04/03/19 13:46 04/03/19 14:25 04/03/19 15:24 Glucose (Fingerstick) 143 mg/dL (70-99) H White Blood Count 4.0 x10^3/uL (4.0-11.0) Red Blood Count 4.15 x10^6/uL (3.50-5.40) Hemoglobin 13.0 g/dL (12.0-15.5) Hematocrit 40.1 % (36.0-47.0) Mean Corpuscular Volume 97 fL (79-100) Mean Corpuscular Hemoglobin 31 pg (25-35) Mean Corpuscular Hemoglobin Concent 33 g/dL (31-37) Red Cell Distribution Width 17.7 % (11.5-14.5) H Platelet Count 153 x10^3/uL (140-400) Neutrophils (%) (Auto) 55 % (31-73) Lymphocytes (%) (Auto) 34 % (24-48) Monocytes (%) (Auto) 7 % (0-9) Eosinophils (%) (Auto) 5 % (0-3) H Basophils (%) (Auto) 1 % (0-3) Neutrophils # (Auto) 2.2 x10^3uL (1.8-7.7) Lymphocytes # (Auto) 1.3 x10^3/uL (1.0-4.8) Monocytes # (Auto) 0.3 x10^3/uL (0.0-1.1) Eosinophils # (Auto) 0.2 x10^3/uL (0.0-0.7) Basophils # (Auto) 0.0 x10^3/uL (0.0-0.2) Sodium Level 141 mmol/L (136-145) Potassium Level 4.3 mmol/L (3.5-5.1) Chloride Level 101 mmol/L (98-107) Carbon Dioxide Level 29 mmol/L (21-32) Anion Gap 11 (6-14) Blood Urea Nitrogen 62 mg/dL (7-20) H Creatinine 5.5 mg/dL (0.6-1.0) H Estimated GFR (Cockcroft-Gault) 7.6 BUN/Creatinine Ratio 11 (6-20) Glucose Level 156 mg/dL (70-99) H Calcium Level 8.6 mg/dL (8.5-10.1) Total Bilirubin 0.4 mg/dL (0.2-1.0) Aspartate Amino Transferase (AST) 16 U/L (15-37) Alanine Aminotransferase (ALT) 16 U/L (14-59) Alkaline Phosphatase 158 U/L (46-116) H Troponin I Quantitative < 0.017 ng/mL (0.000-0.055) Total Protein 7.4 g/dL (6.4-8.2) Albumin 3.5 g/dL (3.4-5.0) Albumin/Globulin Ratio 0.9 (1.0-1.7) L Urine Color Yellow Urine Clarity Cloudy Urine pH 7.5 Urine Specific [place] 1.015 Urine Protein >=300 mg/dL (NEG-TRACE) Urine Glucose (UA) 250 mg/dL (NEG) Urine Ketones (Stick) Negative mg/dL (NEG) Urine Blood Small (NEG) Urine Nitrite Negative (NEG) Urine Bilirubin Negative (NEG) Urine Urobilinogen Dipstick 0.2 mg/dL (0.2 mg/dL) Urine Leukocyte Esterase Small (NEG) Urine RBC Occ /HPF (0-2) Urine WBC 5-10 /HPF (0-4) Urine Squamous Epithelial Cells Occ /LPF Urine Transitional Epithelial Cells Occ /LPF Urine Bacteria 0 /HPF (0-FEW) Urine Hyaline Casts Occasional /HPF Urine Granular Casts Occasional /HPF Urine Mucus Slight /LPF Laboratory Tests 04/03/19 14:25 Laboratory Tests 04/03/19 14:25 EKG EKG []EKG shows a sinus rhythm rate of 66 ischemic changes noted nonspecific ST changes laterally. Radiology/Procedures Radiology/Procedures [] Impressions: Head CT the final report is not in the system yet impression read by Dr. lennon at 2:13 PM on April 03 was no acute intracranial process identified similar atrophic changes evidence of chronic small vessel disease as described. Course & Med Decision Making Course & Med Decision Making Pertinent Labs and Imaging studies reviewed. (See chart for details) []74-year-old female multiple medical problems presenting initially as quick complaining of some possibly mild intermittent confusion and some elevated blood pressures. In the emergency room patient is actually fairly stable at baseline neurologic status according to the son who is a great historian head CT was negative blood pressures in the 170s basic lab work was essentially reassuring her maybe a very mild urinary tract infection We eventually did talk with Dr. Paulino I was in a procedure but the nurses reviewed the case with him and he thought it was fine for the patient to go home that was my plan also patient was discharged with family in stable condition re commended take antibiotics until culture comes back. Go to dialysis tomorrow as scheduled Dragon Disclaimer Dragon Disclaimer This electronic medical record was generated, in whole or in part, using a voice recognition dictation system. Departure Departure Impression: Primary Impression: Urinary tract infection Disposition: HOME, SELF-CARE Referrals: HOUSTON REID MD (PCP) Scripts Sulfamethoxazole/Trimethoprim (BACTRIM DS TABLET) 1 Each Tablet 1 TAB PO BID, #14 TAB Prov: JUAN KEATING MD 04/03/19 JUAN KEATING MD April 03, 2019 15:56
[2019-04-03] MEDS ORDERED: SULF1TAB24 PO (16:18)
--- NOTE | 2019-04-04 09:46 | EKG ---
[facility] [address] [place] [address] Test Date: 2019-04-03 Test Time: 13:42:27 Pat Name: HECTOR GRESHAM Department: Room: Gender: F [employer]: : 1945 Requested By: JUAN KEATING Order Number: [id number] Reading MD: Measurements Intervals [place] Rate: 66 P: 48 NC: 168 QRS: 39 QRSD: 86 T: 104 QT: 426 QTc: 448 Interpretive Statements SINUS RHYTHM LVH WITH REPOLARIZATION ABNORMALITY ABNORMAL ECG Compared to ECG 06/21/2018 08:36:16 Early repolarization now present T-wave abnormality no longer present Possible ischemia no longer present
--- NOTE | 2019-04-04 09:47 | RAD ---
CT Head without contrast 04/03/2019 1:40 PM Indication: Headache, hypertension Comparison: CT head without contrast June 23, 2018 Findings: No intracranial hemorrhage is seen. No evidence of acute territorial infarct is seen. Note that CT is limited in sensitivity for acute ischemia. Global atrophic changes are noted. There is patchy periventricular and deep white matter hypoattenuation which is nonspecific, but most commonly relates to chronic small vessel disease. These changes are similar to comparison study. No abnormal extra axial fluid collection is identified. No mass effect or midline shift is seen. No acute osseous abnormalities are seen. Persistent opacification of the left mastoid air cells noted. Impression: 1. No acute intracranial process identified 2. Similar atrophic changes, and evidence of chronic small vessel disease as described CT DOSING PQRS STATEMENT: One or more of the following individualized dose reduction techniques were utilized for this examination: 1. Automated exposure control 2. Adjustment of the mA and/or kV according to patient size 3. Use of iterative reconstruction technique Electronically signed by: Vj Meyer MD (04/03/2019 2:13 PM) [id number]
== END 2019-04-03 17:20 | disposition home or self-care (01) ==
LOC: ER 13:08
DX: I13.2 Hypertensive heart and chronic kidney disease with heart failure and with stage 5 chronic kidney disease, or end stage renal disease (principal); N39.0 Urinary tract infection, site not specified; E11.22 Type 2 diabetes mellitus with diabetic chronic kidney disease; N18.6 End stage renal disease; I50.9 Heart failure, unspecified; Z99.2 Dependence on renal dialysis; F03.90 Unspecified dementia, unspecified severity, without behavioral disturbance, psychotic disturbance, mood disturbance, and anxiety; F31.9 Bipolar disorder, unspecified; E78.00 Pure hypercholesterolemia, unspecified; E03.9 Hypothyroidism, unspecified; Z90.710 Acquired absence of both cervix and uterus; Z88.1 Allergy status to other antibiotic agents; Z88.8 Allergy status to other drugs, medicaments and biological substances
CPT/HCPCS: 36415; 70450; 80053; 81001; 82962; 84484; 85025; 87086; 93005; 99285-25

== ENCOUNTER 2019-11-12 12:02 | Inpatient (IN) | payer MEDICARE, OTHER ==
[~2019-11-12] VITALS: Ht 157.5 cm; Wt 69.6 kg
[~2019-11-12 12:02] MED LIST changes: +ACET500T68 PO; +ASCO-219 PO; -ASCO500T PO; +CALC300T5 PO; +CETI10TA24 PO; +CYAN-25 PO; -CYAN10005 PO; +DIPH25CA58 PO; +HYDR-2868 PO; -LAMO100T PO; +LAMO100T8 PO; -LINE600T PO; +LINE600T12 PO; -MELA3TAB2 PO; +MELA3TAB56 PO; +ONDA4TAB7 PO; -PANT40TA5 PO; +PANT40TA77 PO; +SULF1TAB24 PO; +TRAZ-118 PO
--- NOTE | 2019-11-12 12:25 | PHYS DOC ---
Past Medical History Past Medical History: Anemia, Anxiety, Arthritis, Bipolar, CHF, Dementia, Depression, Diabetes-Type II, GERD, High Cholesterol, Hypertension, Hypothyroid, Renal Failure Past Surgical History: Hysterectomy Additional Past Surgical Histo: DIALYSIS SHUNT/FISTULA LEFT SIDE Smoking: Quit Greater Than 1 Year Alcohol Use: None Drug Use: None Adult General Chief Complaint Chief Complaint: CHEST PAIN HPI HPI Patient is a 74-year-old female with past medical history of chronic kidney disease on Wednesday, , Wednesday dialysis, CHF, diabetes, hypertension, high cholesterol that is presenting to the emergency department with a chief complaint of cough and chest pain. Patient states that for the last 2 weeks she has developed a cough with increased sputum production, and periodic chest pain that is sharp and localized to the center of her chest and worse with cough. Patient reports mild shortness of breath that is baseline for her. Patient states that she missed dialysis yesterday but was there . The only other complaint that she has is body aches. Patient denies fever, chills, headache, confusion, abdominal pain, constipation, diarrhea, nausea, vomiting, dysuria, and increased frequency. Patient denies trauma. Review of Systems Review of Systems Constitutional: Denies fever or chills Eyes: Denies redness or eye pain HENT: Denies nasal congestion or sore throat Respiratory: Reports cough and shortness of breath Cardiovascular: Denies palpitations, reports chest pain GI: Denies abdominal pain, nausea, or vomiting : Denies dysuria or hematuria Musculoskeletal: Denies back pain or joint pain Integument: Denies rash or skin lesions Neurologic: Denies headache, focal weakness or sensory changes Complete systems were reviewed and found to be within normal limits, except as documented in this note. Current Medications Current Medications Current Medications Medications (Trade) Dose Ordered Sig/Angeles Start Time Stop Time Status Last Admin Dose Admin Aspirin (Jason Aspirin) 325 mg 1X ONCE 11/12/19 12:30 11/12/19 12:31 DC 11/12/19 12:47 325 MG Allergies Allergies Allergies Coded Allergies Type Severity Reaction Last Updated Verified amoxicillin Allergy Intermediate 05/13/18 Yes clavulanic acid Allergy Intermediate 05/13/18 Yes Physical Exam Physical Exam Constitutional: Well developed, well nourished, no acute distress, non-toxic appearance HENT: Normocephalic, atraumatic, bilateral external ears normal, oropharynx moist Eyes: PERRL, EOMI, conjunctiva normal, no discharge Cardiovascular:Heart rate regular rhythm, no murmur Lungs & Thorax: Bilateral breath sounds clear to auscultation Abdomen: Soft, no tenderness Skin: Warm, dry, no erythema, no rash Back: No tenderness, no CVA tenderness Extremities: No tenderness, ROM intact, no edema Neurologic: Alert and oriented X 3, no focal deficits noted. [] Psychologic: Affect normal, judgement normal Current Patient Data Vital Signs Vital Signs Date Time Temp Pulse Resp B/P (MAP) Pulse Ox O2 Delivery O2 Flow Rate FiO2 11/12/19 13:10 58 16 132/60 (84) 97 Room Air 11/12/19 12:10 98.7 98.7 Lab Values Laboratory Tests Test 11/12/19 12:30 White Blood Count 3.6 x10^3/uL (4.0-11.0) L Red Blood Count 2.50 x10^6/uL (3.50-5.40) L Hemoglobin 8.5 g/dL (12.0-15.5) L Hematocrit 24.7 % (36.0-47.0) L Mean Corpuscular Volume 99 fL (79-100) Mean Corpuscular Hemoglobin 34 pg (25-35) Mean Corpuscular Hemoglobin Concent 34 g/dL (31-37) Red Cell Distribution Width 15.4 % (11.5-14.5) H Platelet Count 124 x10^3/uL (140-400) L Neutrophils (%) (Auto) 60 % (31-73) Lymphocytes (%) (Auto) 28 % (24-48) Monocytes (%) (Auto) 7 % (0-9) Eosinophils (%) (Auto) 4 % (0-3) H Basophils (%) (Auto) 1 % (0-3) Neutrophils # (Auto) 2.2 x10^3/uL (1.8-7.7) Lymphocytes # (Auto) 1.0 x10^3/uL (1.0-4.8) Monocytes # (Auto) 0.2 x10^3/uL (0.0-1.1) Eosinophils # (Auto) 0.2 x10^3/uL (0.0-0.7) Basophils # (Auto) 0.0 x10^3/uL (0.0-0.2) Sodium Level 138 mmol/L (136-145) Potassium Level 4.0 mmol/L (3.5-5.1) Chloride Level 96 mmol/L (98-107) L Carbon Dioxide Level 27 mmol/L (21-32) Anion Gap 15 (6-14) H Blood Urea Nitrogen 69 mg/dL (7-20) H Creatinine 8.9 mg/dL (0.6-1.0) H Estimated GFR (Cockcroft-Gault) 4.4 BUN/Creatinine Ratio 8 (6-20) Glucose Level 308 mg/dL (70-99) H Calcium Level 7.6 mg/dL (8.5-10.1) L Magnesium Level 2.0 mg/dL (1.8-2.4) Total Bilirubin 0.6 mg/dL (0.2-1.0) Aspartate Amino Transferase (AST) 15 U/L (15-37) Alanine Aminotransferase (ALT) 15 U/L (14-59) Alkaline Phosphatase 150 U/L (46-116) H Creatine Kinase 66 U/L (26-192) Creatine Kinase MB (Mass) 2.0 ng/mL (0.0-3.6) Creatine Kinase MB Relative Index % (0-4) Troponin I Quantitative < 0.017 ng/mL (0.000-0.055) GK-Oqs-U-Type Natriuretic Peptide 8921 pg/mL (0-124) H Total Protein 6.2 g/dL (6.4-8.2) L Albumin 3.1 g/dL (3.4-5.0) L Albumin/Globulin Ratio 1.0 (1.0-1.7) Lipase 408 U/L (73-393) H Valproic Acid Level 3 mcg/mL (50-100) L Valproic Acid Last Dose Date Unk Valproic Acid Last Dose Time Unk Laboratory Tests 11/12/19 12:30 Laboratory Tests 11/12/19 12:30 EKG EKG EKG at 1225 shows normal sinus rhythm at 64 bpm, no ST elevation. Radiology/Procedures Radiology/Procedures PROCEDURE: PORTABLE CHEST 1V EXAM: CHEST 1 VIEW History: Chest pain COMPARISON: 10/09/2019 TECHNIQUE: Single portable radiograph of the chest FINDINGS: The cardiac silhouette is unremarkable. The lungs are clear bilaterally. The costophrenic sulci are clear and well demarcated. Left subclavian vascular stent identified IMPRESSION: No radiographic evidence of an acute cardiopulmonary process. Electronically signed by: Albert Snow MD (11/12/2019 1:21 PM) [facility] Course & Med Decision Making Course & Med Decision Making Pertinent Labs and Imaging studies reviewed. (See chart for details) Patient is a 74-year-old female with past medical history of kidney disease on dialysis, CHF, diabetes, hypertension, and high cholesterol is presenting to the emergency department with chief complaint of cough and chest pain. Patient was seen and examined at bedside. Labs and imaging ordered. EKG at 1225 shows normal sinus rhythm at 64 bpm, no ST elevation. Chest x-ray without acute process. BNP elevated, hemoglobin decreased at 8.5, calcium decreased at 7.6, initial troponin negative Pain addressed. Heart score of 5. Patient will be admitted for dialysis and further evaluation of chest pain. Patient requiring admission for further evaluation and treatment. Discussed with Dr. Silver (hospitalist) who is in agreement with admission. Discussed findings and plan with patient, who acknowledges understanding and agreement. Dragon Disclaimer Dragon Disclaimer This electronic medical record was generated, in whole or in part, using a voice recognition dictation system. Departure Departure Impression: Primary Impression: Chest pain Additional Impressions: CKD (chronic kidney disease) requiring chronic dialysis Diabetes Dementia Disposition: ADMITTED INPATIENT Admitting Physician: Houston Silver Condition: STABLE Referrals: HOUSTON SILVER MD (PCP) The HEART Score for CP Pts HEART Score for Chest Pain: HEART Score for Chest Pain Response (Comments) Value History Moderately Suspicious 1 ECG Normal 0 Age > 65 2 Risk Factors >3 Risk Factors or Hx CAD 2 Troponin < Normal Limit 0 Total 5 Risk Factors: Risk Factors: DM, Current or recent (<one month) smoker, HTN, HLP, family history of CAD, obesity. Risk Scores: Score 0 - 3: 2.5% MACE over next 6 weeks - Discharge Home Score 4 - 6: 20.3% MACE over next 6 weeks - Admit for Clinical Observation Score 7 - 10: 72.7% MACE over next 6 weeks - Early Invasive Strategies Problem Qualifiers Primary Impression: Chest pain Chest pain type: unspecified Qualified Codes: R07.9 - Chest pain, unspecified Additional Impressions: Diabetes Diabetes mellitus type: type 2 Diabetes mellitus nursing home insulin use: un specified nursing home insulin use status Diabetes mellitus complication status: with kidney complications Diabetes mellitus complication detail: with chronic kidney disease Chronic kidney disease stage: on chronic dialysis Qualified Codes: E11.22 - Type 2 diabetes mellitus with diabetic chronic kidney disease; N18.6 - End stage renal disease; Z99.2 - Dependence on renal dialysis Dementia Dementia type: unspecified type Dementia behavioral disturbance: without behavioral disturbance Qualified Codes: F03.90 - Unspecified dementia without behavioral disturbance DOMINGO SO DO Nov 12, 2019 12:25
[2019-11-12] MEDS ORDERED: ASPIRIN 325 MG TABLET PO ONE (12:30)
[2019-11-12 12:44] LABS: BASO % 1 % (0-3); EOS # 0.2 x10^3/uL (0.0-0.7); EOS % 4 % (0-3); HEMATOCRIT 24.7 % (36.0-47.0); HEMOGLOBIN 8.5 g/dL (12.0-15.5); LYMPH % 28 % (24-48); MEAN CORPUSCULAR HEMOGLOBIN 34 pg (25-35); MEAN CORPUSCULAR HGB CONC 34 g/dL (31-37); MEAN CORPUSCULAR VOLUME 99 fL (79-100); MONO # 0.2 x10^3/uL (0.0-1.1); MONO % 7 % (0-9); NEUT # 2.2 x10^3/uL (1.8-7.7); NEUT % 60 % (31-73); PLATELET COUNT 124 x10^3/uL (140-400); RED CELL DISTRIBUTION WIDTH 15.4 % (11.5-14.5); WHITE BLOOD COUNT 3.6 x10^3/uL (4.0-11.0)
[2019-11-12 12:56] LABS: CALCIUM 7.6 mg/dL (8.5-10.1); CREATININE 8.9 mg/dL (0.6-1.0); GFR 4.4
[2019-11-12 13:02] LABS: ALBUMIN 3.1 g/dL (3.4-5.0); TOTAL BILIRUBIN 0.6 mg/dL (0.2-1.0); TOTAL PROTEIN 6.2 g/dL (6.4-8.2)
[2019-11-12 13:10] LABS: CREATINE KINASE 66 U/L (26-192)
--- NOTE | 2019-11-12 13:24 | RAD ---
EXAM: CHEST 1 VIEW History: Chest pain COMPARISON: 10/09/2019 TECHNIQUE: Single portable radiograph of the chest FINDINGS: The cardiac silhouette is unremarkable. The lungs are clear bilaterally. The costophrenic sulci are clear and well demarcated. Left subclavian vascular stent identified IMPRESSION: No radiographic evidence of an acute cardiopulmonary process. Electronically signed by: Albert Snow MD (11/12/2019 1:21 PM) [facility]
[2019-11-12] MEDS ORDERED: DEXTROSE 50% 25 GM / 50ML DISP.SYRIN. IV PRN (14:15)
[2019-11-12] MEDS ORDERED: ONDANSETRON PF 4 MG/2 ML VIAL. IV PRN (14:15)
[2019-11-12] MEDS ORDERED: IV DEXTROSE 5% 250 ML BAG. IV PRN (14:15)
[2019-11-12 14:38] LABS: VAL ACID 3 mcg/mL (50-100)
[2019-11-12 15:22] VITALS: BP 150/58
--- NOTE | 2019-11-12 16:01 | PDOC2 ---
CONSULT Date of Consult Date of Consult DATE: 11/12/19 TIME: 15:56 Reason for Consult Reason for Consult: ESRD Referring Physician Referring Physician: NADEEM Identification/Chief Complaint Chief Complaint CHEST PAIN Source Source: Chart review, Patient History of Present Illness Reason for Visit: THIS IS A 74 YR OLD ESRD PT WITH CHEST PAIN AND COUGHING. CURRENTLY UNDERGOING EVALUATION FOR THAT. SHE HAS OP HD ON TTS BUT MISSED HER TX YESTERDAY. ESRD IS DUE TO THN. LABS ARE C/W ESRD. CXRAY NEG THUS FAR, BNP IS UP AND CARDIAC ENZYMES NEG THUS FAR. NO RELATED SYMPTOMS WITH CHEST PAIN OTHER THAN COUGHING Past Medical History Cardiovascular: HTN, Valve insufficiency, Pulmonary hypertension Pulmonary: No pertinent hx CENTRAL NERVOUS SYSTEM: Dementia, Periperal neuropathy GI: GERD, Peptic Ulcer disease Heme/Onc: No pertinent hx Hepatobiliary: No pertinent hx Psych: Bipolar Rheumatologic: No pertinent hx Infectious disease: No pertinent hx Renal/: Chronic renal failure Endocrine: Diabetes, Hyperparathyroidism Past Surgical History Past Surgical History: Hysterectomy Family History Family History: Alzheimer's Disease Social History ALCOHOL: none Drugs: None Lives: with Family Current Problem List Problem List Problems Medical Problems: (1) Chest pain Status: Acute (2) CKD (chronic kidney disease) requiring chronic dialysis Status: Acute (3) Dementia Status: Acute (4) Diabetes Status: Acute Current Medications Current Medications Current Medications Aspirin (Jason Aspirin) 325 mg 1X ONCE PO Last administered on 11/12/19at 12:47; Start 11/12/19 at 12:30; Stop 11/12/19 at 12:31; Status DC Ondansetron HCl (Zofran) 4 mg PRN Q8HRS PRN IV NAUSEA/VOMITING; Start 11/12/19 at 14:15; Stop 11/13/19 at 14:14 Insulin Human Lispro (HumaLOG) 0-5 UNITS TIDWMEALS SQ ; Start 11/12/19 at 17:00 Dextrose (Dextrose 50%-Water Syringe) 12.5 gm PRN Q15MIN PRN IV SEE COMMENTS; Start 11/12/19 at 14:15 Dextrose (Iv Dextrose 5%) 250 ml PRN Q15MIN PRN IV SEE COMMENTS; Start 11/12/19 at 14:15 Active Scripts Active Synthroid (Levothyroxine Sodium) 88 Mcg Tablet 88 Mcg PO DAILY07 Reported Hydralazine Hcl 25 Mg Tablet 25 Mg PO BID Benadryl (Diphenhydramine Hcl) 25 Mg Capsule 25 Mg PO PRN Q6HRS PRN Acetaminophen 500 Mg Tablet 500 Mg PO PRN Q6HRS PRN Trazodone Hcl 50 Mg Tablet 50 Mg PO PRN QHS Tums (Calcium Carbonate) 300 Mg Tab.chew 500 Mg PO HS Zyrtec (Cetirizine Hcl) 10 Mg Tablet 10 Mg PO HS Zofran (Ondansetron Hcl) 4 Mg Tablet 1 Tab PO PRN Q6HRS Cozaar (Losartan Potassium) 100 Mg Tablet 100 Mg PO DAILY take one tablet every Sun, Mon, Wed, and Fri Amlodipine Besylate 5 Mg Tablet 5 Mg PO DAILY take 1 tab every Sun, Mon, Wed, Fri Tramadol Hcl 50 Mg Tablet 50 Mg PO Q8HRS PRN Melatonin 3 Mg Tablet 2 Tab PO QHS Lantus Solostar (Insulin Glargine,Hum.rec.anlog) 100 Unit/1 Ml Insuln.pen 6 Unit SQ HS Hydrocortisone 59 Ml Lotion 1 Jarvis TP BID Colace (Docusate Sodium) 100 Mg Capsule 1 Cap PO PRN DAILY PRN Calcium Acetate 667 Mg Tablet 667 Mg PO TIDWMEALS Buspirone Hcl 5 Mg Tablet 1 Tab PO TID Seroquel (Quetiapine Fumarate) 50 Mg Tablet 50 Mg PO BID Nystatin-Triamcinolone Cream (Nystatin/Triamcin) 15 Gm Cream..g. 1 Jarvis TP PRN PRN Depakote Er (Divalproex Sodium) 250 Mg Tab.er.24h 250 Mg PO DAILY Biofreeze (Menthol) 118 Ml Gel..ml. 118 Ml TP TID Novolog Flexpen (Insulin Aspart) 100 Unit/1 Ml Insuln.pen 4 Unit SQ TIDWMEALS Vitamin D2 (Ergocalciferol (Vitamin D2)) 50,000 Unit Capsule 50,000 Unit PO DAILY Donepezil Hcl 10 Mg Tablet 10 Mg PO DAILY Isosorbide Mononitrate Er (Isosorbide Mononitrate) 30 Mg Tab.er.24h 1 Tab PO DAILY Multivitamins (Multivitamin) 1 Each Tablet 1 Tab PO DAILY Allergies Allergies: Coded Allergies: amoxicillin (Verified Allergy, Intermediate, 05/13/18) clavulanic acid (Verified Allergy, Intermediate, 05/13/18) ROS General: YES: Fatigue, Malaise, Appetite Eyes: Yes Decreased vision ALLERGY AND IMMUNOLOGY: YES: Seasonal Allergies Respiratory: YES: Cough, Shortness of breath Cardiovascular: yes Chest Pain Gastrointestinal: Yes Constipation Genitourinary: YES Other (ANURIA) Musculoskeletal: Yes Muscular Weakness Neurological: Yes Weakness Skin: Yes Dry Skin Physical Exam General: Alert, Oriented X3, Cooperative, No acute distress HEENT: Atraumatic, PERRLA Lungs: Clear to auscultation Heart: Regular rate Abdomen: Normal bowel sounds, Soft, No tenderness Skin: No rashes Neuro: Normal speech, Cranial nerves 3-12 NL Psych/Mental Status: Mental status NL, Mood NL MUSCULOSKELETAL: No joint tenderness, No deformity, No swelling Vitals VITALS Vital Signs Date Time Temp Pulse Resp B/P (MAP) Pulse Ox O2 Delivery O2 Flow Rate FiO2 11/12/19 15:22 98.3 65 20 150/58 (88) 100 Room Air 98.3 Labs Labs Laboratory Tests Test 11/12/19 12:30 White Blood Count 3.6 x10^3/uL (4.0-11.0) Red Blood Count 2.50 x10^6/uL (3.50-5.40) Hemoglobin 8.5 g/dL (12.0-15.5) Hematocrit 24.7 % (36.0-47.0) Mean Corpuscular Volume 99 fL (79-100) Mean Corpuscular Hemoglobin 34 pg (25-35) Mean Corpuscular Hemoglobin Concent 34 g/dL (31-37) Red Cell Distribution Width 15.4 % (11.5-14.5) Platelet Count 124 x10^3/uL (140-400) Neutrophils (%) (Auto) 60 % (31-73) Lymphocytes (%) (Auto) 28 % (24-48) Monocytes (%) (Auto) 7 % (0-9) Eosinophils (%) (Auto) 4 % (0-3) Basophils (%) (Auto) 1 % (0-3) Neutrophils # (Auto) 2.2 x10^3/uL (1.8-7.7) Lymphocytes # (Auto) 1.0 x10^3/uL (1.0-4.8) Monocytes # (Auto) 0.2 x10^3/uL (0.0-1.1) Eosinophils # (Auto) 0.2 x10^3/uL (0.0-0.7) Basophils # (Auto) 0.0 x10^3/uL (0.0-0.2) Sodium Level 138 mmol/L (136-145) Potassium Level 4.0 mmol/L (3.5-5.1) Chloride Level 96 mmol/L (98-107) Carbon Dioxide Level 27 mmol/L (21-32) Anion Gap 15 (6-14) Blood Urea Nitrogen 69 mg/dL (7-20) Creatinine 8.9 mg/dL (0.6-1.0) Estimated GFR (Cockcroft-Gault) 4.4 BUN/Creatinine Ratio 8 (6-20) Glucose Level 308 mg/dL (70-99) Calcium Level 7.6 mg/dL (8.5-10.1) Magnesium Level 2.0 mg/dL (1.8-2.4) Total Bilirubin 0.6 mg/dL (0.2-1.0) Aspartate Amino Transf (AST/SGOT) 15 U/L (15-37) Alanine Aminotransferase (ALT/SGPT) 15 U/L (14-59) Alkaline Phosphatase 150 U/L (46-116) Creatine Kinase 66 U/L (26-192) Creatine Kinase MB (Mass) 2.0 ng/mL (0.0-3.6) Creatine Kinase MB Relative Index % (0-4) Troponin I Quantitative < 0.017 ng/mL (0.000-0.055) SX-Afp-V-Type Natriuretic Peptide 8921 pg/mL (0-124) Total Protein 6.2 g/dL (6.4-8.2) Albumin 3.1 g/dL (3.4-5.0) Albumin/Globulin Ratio 1.0 (1.0-1.7) Lipase 408 U/L (73-393) Valproic Acid (Depakene) Level 3 mcg/mL (50-100) Valproic Acid Last Dose Date Unk Valproic Acid Last Dose Time Unk Laboratory Tests Test 11/12/19 12:30 White Blood Count 3.6 x10^3/uL (4.0-11.0) Red Blood Count 2.50 x10^6/uL (3.50-5.40) Hemoglobin 8.5 g/dL (12.0-15.5) Hematocrit 24.7 % (36.0-47.0) Mean Corpuscular Volume 99 fL (79-100) Mean Corpuscular Hemoglobin 34 pg (25-35) Mean Corpuscular Hemoglobin Concent 34 g/dL (31-37) Red Cell Distribution Width 15.4 % (11.5-14.5) Platelet Count 124 x10^3/uL (140-400) Neutrophils (%) (Auto) 60 % (31-73) Lymphocytes (%) (Auto) 28 % (24-48) Monocytes (%) (Auto) 7 % (0-9) Eosinophils (%) (Auto) 4 % (0-3) Basophils (%) (Auto) 1 % (0-3) Neutrophils # (Auto) 2.2 x10^3/uL (1.8-7.7) Lymphocytes # (Auto) 1.0 x10^3/uL (1.0-4.8) Monocytes # (Auto) 0.2 x10^3/uL (0.0-1.1) Eosinophils # (Auto) 0.2 x10^3/uL (0.0-0.7) Basophils # (Auto) 0.0 x10^3/uL (0.0-0.2) Sodium Level 138 mmol/L (136-145) Potassium Level 4.0 mmol/L (3.5-5.1) Chloride Level 96 mmol/L (98-107) Carbon Dioxide Level 27 mmol/L (21-32) Anion Gap 15 (6-14) Blood Urea Nitrogen 69 mg/dL (7-20) Creatinine 8.9 mg/dL (0.6-1.0) Estimated GFR (Cockcroft-Gault) 4.4 BUN/Creatinine Ratio 8 (6-20) Glucose Level 308 mg/dL (70-99) Calcium Level 7.6 mg/dL (8.5-10.1) Magnesium Level 2.0 mg/dL (1.8-2.4) Total Bilirubin 0.6 mg/dL (0.2-1.0) Aspartate Amino Transf (AST/SGOT) 15 U/L (15-37) Alanine Aminotransferase (ALT/SGPT) 15 U/L (14-59) Alkaline Phosphatase 150 U/L (46-116) Creatine Kinase 66 U/L (26-192) Creatine Kinase MB (Mass) 2.0 ng/mL (0.0-3.6) Creatine Kinase MB Relative Index % (0-4) Troponin I Quantitative < 0.017 ng/mL (0.000-0.055) GS-Dfl-B-Type Natriuretic Peptide 8921 pg/mL (0-124) Total Protein 6.2 g/dL (6.4-8.2) Albumin 3.1 g/dL (3.4-5.0) Albumin/Globulin Ratio 1.0 (1.0-1.7) Lipase 408 U/L (73-393) Valproic Acid (Depakene) Level 3 mcg/mL (50-100) Valproic Acid Last Dose Date Unk Valproic Acid Last Dose Time Unk Assessment/Plan Assessment/Plan IMP CHEST PAIN ESRD ANEMIA HTN PLAN CHEST PAIN EVAL START ARANESP HD TOMORROW WILL FOLLOW CARMEN PAGE MD Nov 12, 2019 16:01
[2019-11-12] MEDS: INSULIN LISPRO 300 UNITS/3 ML VIAL. SQ SCH (17:42)
[2019-11-12 19:40] VITALS: BP 129/46
[2019-11-12] MEDS ORDERED: DARBEPOETIN ALFA 60 MCG/0.3 ML DISP.SYRIN. SQ SCH (21:00)
[2019-11-12 23:20] VITALS: BP 148/54
[2019-11-13 03:15] VITALS: BP 142/48
[2019-11-13] MEDS ORDERED: BENZ200C47 PO (05:05)
[2019-11-13] MEDS ORDERED: CARB15DR65 EACHEYE (05:05)
[2019-11-13] MEDS ORDERED: DEXT15SY9 PO (05:05)
[2019-11-13] MEDS ORDERED: HYDR-2868 PO ×2 (05:05)
[2019-11-13] MEDS ORDERED: INSU100I13 SQ (05:05)
--- NOTE | 2019-11-13 06:26 | EKG ---
[facility] [address] [place] [address] Test Date: 2019-11-12 Test Time: 12:25:40 Pat Name: HECTOR GRESHAM Department: Room: Gender: [employer] Laboratory Director: [id number] : 1945 Requested By: DOMINGO SO Order Number: [id number] Reading MD: Measurements Intervals Hawley Rate: 64 P: 90 DC: 170 QRS: 32 QRSD: 82 T: 99 QT: 438 QTc: 456 Interpretive Statements SINUS RHYTHM ST & T ABNORMALITY, CONSIDER HIGH LATERAL ISCHEMIA OR LEFT VENTRICULAR STRAIN ABNORMAL ECG RI6.01 No previous ECG available for comparison
[2019-11-13 07:00] VITALS: BP 154/86
[2019-11-13] MEDS: INSULIN LISPRO 300 UNITS/3 ML VIAL. SQ SCH ×5 (08:00→17:54)
[2019-11-13 08:02] LABS: CALCIUM 7.4 mg/dL (8.5-10.1); CREATININE 9.5 mg/dL (0.6-1.0); GFR 4.1; POTASSIUM 4.7 mmol/L (3.5-5.1)
[2019-11-13] MEDS ORDERED: diphenhydrAMINE HCL 25 MG CAPSULE PO PRN (08:30)
[2019-11-13] MEDS ORDERED: ACETAMINOPHEN 500 MG TABLET PO PRN (08:30)
[2019-11-13] MEDS ORDERED: DOCUSATE SODIUM 100 MG CAPSULE. PO PRN (08:30)
[2019-11-13] MEDS ORDERED: AZITHRMYCN 500MG IVPB FOR OMNI 250 ML IV ONE (08:30)
[2019-11-13] MEDS ORDERED: POLYVINYL ALCOHOL 1.4% OPHTH SOLUTION 15ML BOTTLE. OU PRN (08:45)
[2019-11-13] MEDS ORDERED: METHYL SALICYLATE/MENTHOL TOPICAL CREAM 57GM TUBE. TP PRN (08:45)
[2019-11-13] MEDS ORDERED: ONDANSETRON ODT 4 MG TAB.RAPDIS. PO PRN (08:45)
[2019-11-13] MEDS ORDERED: LEVOTHYROXINE 88 MCG TABLET PO SCH (09:00)
[2019-11-13] MEDS ORDERED: HYDROCORTISONE 1% TOPICAL CREAM 30GM TUBE. TP PRN (09:30)
[2019-11-13] MEDS: ISOSORBIDE MONONITRATE ER 30 MG TAB.ER.24H PO SCH (10:00)
[2019-11-13] MEDS: LOSARTAN POTASSIUM 50 MG TABLET. PO SCH (10:00)
[2019-11-13] MEDS ORDERED: AZITHROMYCIN 500 MG in IV NORMAL SALINE 250ML 250 ML IV ONE (10:00)
[2019-11-13] MEDS: MULTIVITAMIN with MINERAL TABLET. PO SCH (10:00)
[2019-11-13] MEDS: guaiFENesin DM 600/30MG 1 TAB TAB.ER.12H PO SCH ×2 (10:00→23:10)
[2019-11-13] MEDS: QUEtiapine 25 MG TABLET. PO SCH ×2 (10:01→23:11)
[2019-11-13] MEDS: predniSONE 20 MG TABLET PO SCH (10:01)
[2019-11-13] MEDS: DIVALPROEX EXTENDED RELEASE 250 MG TAB.ER.24H. PO SCH (10:01)
[2019-11-13] MEDS: BENZONATATE 100 MG CAPSULE. PO PRN (10:01)
[2019-11-13] MEDS: hydrALAZINE 25 MG TABLET PO SCH ×2 (10:02→23:12)
[2019-11-13] MEDS: busPIRone 5 MG TABLET. PO SCH ×3 (10:02→23:11)
[2019-11-13] MEDS: DONEPEZIL HCL 10 MG TABLET. PO SCH (10:02)
[2019-11-13] MEDS: amLODIPine BESYLATE 5 MG TABLET PO SCH (10:02)
[2019-11-13] MEDS: cefTRIAXone IV Push 1 GM VIAL. IVP SCH (10:12)
[2019-11-13 11:00] VITALS: BP 95/43
[2019-11-13] MEDS ORDERED: IV NORMAL SALINE 1000ML BAG 1,000 ML IV PRN ×2 (11:59)
[2019-11-13] MEDS ORDERED: DIALYSIS PATIENT. MC PRN ×2 (12:00)
[2019-11-13] MEDS: CALCIUM ACETATE 667 MG CAPSULE PO SCH ×2 (12:10→17:45)
--- NOTE | 2019-11-13 15:53 | PDOC ---
Renal-Progress Notes Subjective Notes Notes NO NEW COMPLAINTS History of Present Illness Hx of present illness STABLE Vitals Vitals Vital Signs Date Time Temp Pulse Resp B/P (MAP) Pulse Ox O2 Delivery O2 Flow Rate FiO2 11/13/19 11:00 98.4 71 18 95/43 (60) 98 Room Air 98.4 Weight Weight [ ] I.O. Intake and Output Intake and Output 11/13/19 07:00 Intake Total 180 ml Balance 180 ml Intake Oral 180 ml Labs Labs Laboratory Tests Test 11/12/19 17:00 11/12/19 17:19 11/12/19 20:20 11/12/19 20:40 Troponin I Quantitative < 0.017 ng/mL (0.000-0.055) < 0.017 ng/mL (0.000-0.055) Glucose (Fingerstick) 172 mg/dL (70-99) 303 mg/dL (70-99) Test 11/13/19 07:36 11/13/19 07:56 11/13/19 12:08 Sodium Level 137 mmol/L (136-145) Potassium Level 4.7 mmol/L (3.5-5.1) Chloride Level 97 mmol/L (98-107) Carbon Dioxide Level 25 mmol/L (21-32) Anion Gap 15 (6-14) Blood Urea Nitrogen 76 mg/dL (7-20) Creatinine 9.5 mg/dL (0.6-1.0) Estimated GFR (Cockcroft-Gault) 4.1 Glucose Level 231 mg/dL (70-99) Calcium Level 7.4 mg/dL (8.5-10.1) Glucose (Fingerstick) 212 mg/dL (70-99) 205 mg/dL (70-99) Review of Systems Constitutional: yes: alert, oriented Ears/Nose/Throat: Yes: no symptom reported Eyes: Yes: no symptom reported Pulmonary: Yes no symptom reported Cardiovascular: Yes no symptom reported Gastrointestional: Yes: no symptom reported Genitourinary: Yes: no symptom reported Musculoskeletal: Yes: no symptom reported Skin: Yes no symptom reported Psychiatric/Neurological: Yes: no symptom reported Physical Exam General Appearance: no apparent distress Skin: warm Respiratory: bilateral CTA Heart: S1S2 Abdomen: soft, bowel sounds present Genitourinary: bladder flat Extremities: pulses present Neurology: alert Assessment Assessment IMP CHEST PAIN ESRD ANEMIA HTN PLAN CHEST PAIN EVAL STARTED ARANESP HD TODAY UF TO DW WILL FOLLOW CARMEN PAGE MD Nov 13, 2019 15:53
[2019-11-13 16:35] VITALS: BP 138/62
--- NOTE | 2019-11-13 17:29 | HP ---
ADMIT DATE: CHIEF COMPLAINT AND HISTORY OF PRESENT ILLNESS: This 74-year-old female is well known to me in followup in the office. The patient had a cough over the last couple of weeks with increased sputum production, chest pain that was sharp, located towards the center of her chest. She has had shortness of breath, different than her baseline. She had missed dialysis the day before due to feeling too bad. She complained of body aches. Denied fevers, chills, sweats, nausea, vomiting, diarrhea, dysuria, or frequency, etc. She was admitted for dialysis in the hospital as well as treatment and workup of her chest pain with unknown bronchitis. PAST MEDICAL HISTORY: Remarkable for anemia; anxiety; arthritis; congestive heart failure; bipolar; depression; diabetes; GERD; hyperlipidemia; hypothyroidism; end-stage renal disease, on dialysis; and hypertension. She does have a dialysis shunt fistula in her left arm. MEDICATIONS: Brought with the patient, listed on the computer and have been addressed. ALLERGIES: Brought with the patient, listed on the computer and have been addressed. SOCIAL HISTORY: She is nonsmoker, nondrinker. She does not use drugs. She is living currently in a long term at [facility]. She has a very supportive family. FAMILY HISTORY: Noncontributory. REVIEW OF SYSTEMS: As mentioned above. PHYSICAL EXAMINATION: GENERAL: She is well-developed, well-nourished white female, in mild distress. VITAL SIGNS: Stable. She is afebrile. HEAD, EYES, EARS, NOSE, AND THROAT: Unremarkable. NECK: Supple. No thyromegaly. CHEST: Clear to auscultation and percussion. She does have left costochondral tenderness anteriorly consistent with costochondritis. HEART: Regular rate and rhythm without S3, S4, or murmur or rub. ABDOMEN: Soft, nontender, without hepatosplenomegaly or masses. EXTREMITIES: Without cyanosis, clubbing, or edema. NEUROLOGIC: She is intact. IMPRESSION: 1. Chest pain, felt due to costochondritis. 2. Bronchitis and shortness of breath. 3. Multiple other problems listed above. PLAN: The patient has been admitted. She is with negative troponins, etc. today. We will treat this as a bronchitis and anticipate a relatively quick discharge. HOUSTON SILVER MD DR: Katelynn JOB#: [id number] / [id number]
[2019-11-13 19:53] VITALS: BP 119/51
[2019-11-13] MEDS ORDERED: NYSTATIN 100,000 UNIT/GM TOPICAL CREAM 15GM TUBE. TP PRN (21:00)
[2019-11-13] MEDS ORDERED: NON FORMULARY ITEM (Melatonin 2 TAB) PO SCH (21:00)
[2019-11-13] MEDS: INSULIN GLARGINE SYRINGE. SQ SCH (21:00)
[2019-11-13 22:10] VITALS: BP 139/58
[2019-11-13] MEDS: CETIRIZINE HCL 10 MG TABLET. PO SCH (23:11)
[2019-11-13] MEDS: traZODone 50 MG TABLET. PO PRN (23:11)
[2019-11-13] MEDS: CALCIUM CARBONATE 500 MG TAB.CHEW PO SCH (23:11)
[2019-11-14 02:19] VITALS: BP 128/56
[2019-11-14 05:50] LABS: BASO % 0 % (0-3); EOS # 0.1 x10^3/uL (0.0-0.7); EOS % 1 % (0-3); HEMATOCRIT 25.3 % (36.0-47.0); HEMOGLOBIN 8.5 g/dL (12.0-15.5); LYMPH # 1.3 x10^3/uL (1.0-4.8); LYMPH % 35 % (24-48); MEAN CORPUSCULAR HEMOGLOBIN 33 pg (25-35); MEAN CORPUSCULAR HGB CONC 34 g/dL (31-37); MEAN CORPUSCULAR VOLUME 99 fL (79-100); MONO # 0.3 x10^3/uL (0.0-1.1); MONO % 9 % (0-9); NEUT # 1.9 x10^3/uL (1.8-7.7); NEUT % 54 % (31-73); PLATELET COUNT 147 x10^3/uL (140-400); RED BLOOD COUNT 2.56 x10^6/uL (3.50-5.40); RED CELL DISTRIBUTION WIDTH 15.3 % (11.5-14.5); WHITE BLOOD COUNT 3.6 x10^3/uL (4.0-11.0)
[2019-11-14 07:00] VITALS: BP 148/51
[2019-11-14] MEDS ORDERED: IV NORMAL SALINE 1000ML BAG 1,000 ML IV PRN ×2 (08:27)
[2019-11-14] MEDS ORDERED: ALBUMIN HUMAN 25% 200 ML IV PRN (08:30)
[2019-11-14] MEDS ORDERED: DIALYSIS PATIENT. MC PRN ×2 (08:30)
[2019-11-14] MEDS ORDERED: 0.9 % SODIUM CHLORIDE 10 ML DISP.SYRIN. IV PRN ×2 (08:30)
[2019-11-14] MEDS: DIVALPROEX EXTENDED RELEASE 250 MG TAB.ER.24H. PO SCH (08:57)
[2019-11-14] MEDS: DONEPEZIL HCL 10 MG TABLET. PO SCH (08:58)
[2019-11-14] MEDS: QUEtiapine 25 MG TABLET. PO SCH ×2 (08:58→20:11)
[2019-11-14] MEDS: CALCIUM ACETATE 667 MG CAPSULE PO SCH ×3 (08:58→18:36)
[2019-11-14] MEDS: predniSONE 20 MG TABLET PO SCH (08:59)
[2019-11-14] MEDS: busPIRone 5 MG TABLET. PO SCH ×3 (08:59→20:22)
[2019-11-14] MEDS: guaiFENesin DM 600/30MG 1 TAB TAB.ER.12H PO SCH ×2 (09:00→20:09)
[2019-11-14] MEDS: MULTIVITAMIN with MINERAL TABLET. PO SCH (09:00)
[2019-11-14] MEDS: hydrALAZINE 25 MG TABLET PO SCH ×2 (09:00→20:11)
[2019-11-14] MEDS: ISOSORBIDE MONONITRATE ER 30 MG TAB.ER.24H PO SCH (09:00)
[2019-11-14] MEDS: INSULIN LISPRO 300 UNITS/3 ML VIAL. SQ SCH ×6 (09:13→17:00)
[2019-11-14] MEDS: cefTRIAXone IV Push 1 GM VIAL. IVP SCH (10:22)
[2019-11-14] MEDS: AZITHROMYCIN 500 MG in IV NORMAL SALINE 250ML 250 ML IV SCH (10:22)
[2019-11-14 11:00] VITALS: BP 109/51
[2019-11-14] MEDS: ONDANSETRON PF 4 MG/2 ML VIAL. IVP PRN (11:39)
[2019-11-14] MEDS: amLODIPine BESYLATE 5 MG TABLET PO SCH (12:46)
--- NOTE | 2019-11-14 16:02 | PDOC ---
Renal-Progress Notes Subjective Notes Notes LESS SOB, COUGH BETTER History of Present Illness Hx of present illness STABLE Vitals Vitals Vital Signs Date Time Temp Pulse Resp B/P (MAP) Pulse Ox O2 Delivery O2 Flow Rate FiO2 11/14/19 12:46 62 109/51 11/14/19 11:00 97.6 16 99 Room Air 97.6 Weight Weight [ ] I.O. Intake and Output Intake and Output 11/14/19 07:00 Intake Total 340 ml Output Total 225 ml Balance 115 ml Intake Oral 340 ml Output Urine Total 225 ml # Bowel Movements 2 Labs Labs Laboratory Tests Test 11/13/19 17:27 11/13/19 20:30 11/14/19 05:05 11/14/19 08:10 Glucose (Fingerstick) 279 mg/dL (70-99) 360 mg/dL (70-99) 243 mg/dL (70-99) White Blood Count 3.6 x10^3/uL (4.0-11.0) Red Blood Count 2.56 x10^6/uL (3.50-5.40) Hemoglobin 8.5 g/dL (12.0-15.5) Hematocrit 25.3 % (36.0-47.0) Mean Corpuscular Volume 99 fL (79-100) Mean Corpuscular Hemoglobin 33 pg (25-35) Mean Corpuscular Hemoglobin Concent 34 g/dL (31-37) Red Cell Distribution Width 15.3 % (11.5-14.5) Platelet Count 147 x10^3/uL (140-400) Neutrophils (%) (Auto) 54 % (31-73) Lymphocytes (%) (Auto) 35 % (24-48) Monocytes (%) (Auto) 9 % (0-9) Eosinophils (%) (Auto) 1 % (0-3) Basophils (%) (Auto) 0 % (0-3) Neutrophils # (Auto) 1.9 x10^3/uL (1.8-7.7) Lymphocytes # (Auto) 1.3 x10^3/uL (1.0-4.8) Monocytes # (Auto) 0.3 x10^3/uL (0.0-1.1) Eosinophils # (Auto) 0.1 x10^3/uL (0.0-0.7) Basophils # (Auto) 0.0 x10^3/uL (0.0-0.2) Test 11/14/19 11:47 Glucose (Fingerstick) 223 mg/dL (70-99) Review of Systems Constitutional: yes: alert, oriented Ears/Nose/Throat: Yes: no symptom reported Eyes: Yes: no symptom reported Pulmonary: Yes no symptom reported Cardiovascular: Yes no symptom reported Gastrointestional: Yes: no symptom reported Genitourinary: Yes: no symptom reported Musculoskeletal: Yes: no symptom reported Skin: Yes no symptom reported Psychiatric/Neurological: Yes: no symptom reported Physical Exam General Appearance: no apparent distress Skin: warm Respiratory: bilateral CTA Heart: S1S2 Abdomen: soft, bowel sounds present Genitourinary: bladder flat Extremities: pulses present Neurology: alert Assessment Assessment IMP BRONCHITIS WITH SOB-BETTER CHEST PAIN ESRD ANEMIA HTN PLAN CHEST PAIN EVAL STARTED [facility]ESP HD TODAY UF TO [facility] WILL FOLLOW CARMEN PAGE MD Nov 14, 2019 16:02
--- NOTE | 2019-11-14 17:08 | PDOC ---
GENERAL General: vss and afebrile. feeling better today with cough decreasing somewhat. chest near clear, heart regular, abdomen benign, sugars elevated, anemia stable. continue present with transition to po in next day or so and back to residential. VITAL SIGNS/I&O Vital Signs/I&O: Vital Signs Date Time Temp Pulse Resp B/P (MAP) Pulse Ox O2 Delivery O2 Flow Rate FiO2 11/14/19 12:46 62 109/51 11/14/19 11:00 97.6 16 99 Room Air 97.6 I & O 11/13/19 11/13/19 11/14/19 15:00 23:00 07:00 Intake Total 100 ml 120 ml 120 ml Output Total 125 ml 100 ml Balance -25 ml 20 ml 120 ml ALLERGIES Allergies: Allergies Coded Allergies Type Severity Reaction Last Updated Verified amoxicillin Allergy Intermediate 05/13/18 Yes clavulanic acid Allergy Intermediate 05/13/18 Yes MEDS Medications: Current Medications Medications (Trade) Dose Ordered Sig/Angeles Route PRN Reason Start Time Stop Time Status Last Admin Dose Admin Cetirizine HCl (ZyrTEC) 10 mg HS PO 11/13/19 21:00 11/13/19 23:11 Calcium Carbonate/ Glycine (Tums) 500 mg HS PO 11/13/19 21:00 11/13/19 23:11 Insulin Glargine (Lantus Syringe) 6 unit QHS SQ 11/13/19 21:00 11/13/19 21:00 Azithromycin 500 mg/Sodium Chloride 250 ml @ 250 mls/hr Q24H IV 11/14/19 10:00 11/14/19 10:22 Ondansetron HCl (Zofran) 4 mg PRN Q6HRS PRN IVP NAUSEA/VOMITING 11/14/19 11:30 11/14/19 11:39 LAB Lab: Laboratory Tests Test 11/13/19 17:27 11/13/19 20:30 11/14/19 05:05 11/14/19 08:10 Glucose (Fingerstick) 279 mg/dL (70-99) H 360 mg/dL (70-99) H 243 mg/dL (70-99) H White Blood Count 3.6 x10^3/uL (4.0-11.0) L Red Blood Count 2.56 x10^6/uL (3.50-5.40) L Hemoglobin 8.5 g/dL (12.0-15.5) L Hematocrit 25.3 % (36.0-47.0) L Mean Corpuscular Volume 99 fL (79-100) Mean Corpuscular Hemoglobin 33 pg (25-35) Mean Corpuscular Hemoglobin Concent 34 g/dL (31-37) Red Cell Distribution Width 15.3 % (11.5-14.5) H Platelet Count 147 x10^3/uL (140-400) Neutrophils (%) (Auto) 54 % (31-73) Lymphocytes (%) (Auto) 35 % (24-48) Monocytes (%) (Auto) 9 % (0-9) Eosinophils (%) (Auto) 1 % (0-3) Basophils (%) (Auto) 0 % (0-3) Neutrophils # (Auto) 1.9 x10^3/uL (1.8-7.7) Lymphocytes # (Auto) 1.3 x10^3/uL (1.0-4.8) Monocytes # (Auto) 0.3 x10^3/uL (0.0-1.1) Eosinophils # (Auto) 0.1 x10^3/uL (0.0-0.7) Basophils # (Auto) 0.0 x10^3/uL (0.0-0.2) Test 11/14/19 11:47 Glucose (Fingerstick) 223 mg/dL (70-99) H Laboratory Tests 11/14/19 05:05 HOUSTON SILVER MD Nov 14, 2019 17:08
[2019-11-14] MEDS: LOSARTAN POTASSIUM 50 MG TABLET. PO SCH (18:36)
[2019-11-14 19:00] VITALS: BP 137/52
[2019-11-14] MEDS: LACTOBACILLUS RHAMNOSUS GG 1 CAPSULE. PO SCH (20:09)
[2019-11-14] MEDS: CETIRIZINE HCL 10 MG TABLET. PO SCH (20:09)
[2019-11-14] MEDS: CALCIUM CARBONATE 500 MG TAB.CHEW PO SCH (20:09)
[2019-11-14] MEDS: traZODone 50 MG TABLET. PO PRN (20:09)
[2019-11-14] MEDS: traMADol 50 MG TABLET PO PRN (20:10)
[2019-11-14] MEDS: INSULIN GLARGINE SYRINGE. SQ SCH (20:22)
[2019-11-14 23:00] VITALS: BP 124/54
[2019-11-15 03:30] VITALS: BP 152/45
[2019-11-15] MEDS ORDERED: LEVOTHYROXINE 88 MCG TABLET PO SCH (06:00)
[2019-11-15] MEDS: LEVOTHYROXINE 88 MCG TABLET PO SCH (06:00)
[2019-11-15 07:00] VITALS: BP 138/55
[2019-11-15] MEDS: predniSONE 20 MG TABLET PO SCH (08:47)
[2019-11-15] MEDS: LACTOBACILLUS RHAMNOSUS GG 1 CAPSULE. PO SCH ×2 (08:47→20:59)
[2019-11-15] MEDS: CALCIUM ACETATE 667 MG CAPSULE PO SCH ×3 (08:47→17:29)
[2019-11-15] MEDS: QUEtiapine 25 MG TABLET. PO SCH ×2 (08:47→20:59)
[2019-11-15] MEDS: guaiFENesin DM 600/30MG 1 TAB TAB.ER.12H PO SCH ×2 (08:47→20:59)
[2019-11-15] MEDS: MULTIVITAMIN with MINERAL TABLET. PO SCH (08:48)
[2019-11-15] MEDS: hydrALAZINE 25 MG TABLET PO SCH ×2 (08:48→20:58)
[2019-11-15] MEDS: ISOSORBIDE MONONITRATE ER 30 MG TAB.ER.24H PO SCH (08:49)
[2019-11-15] MEDS: BENZONATATE 100 MG CAPSULE. PO PRN (08:49)
[2019-11-15] MEDS: busPIRone 5 MG TABLET. PO SCH ×3 (08:50→20:59)
[2019-11-15] MEDS: DIVALPROEX EXTENDED RELEASE 250 MG TAB.ER.24H. PO SCH (08:50)
[2019-11-15] MEDS: DONEPEZIL HCL 10 MG TABLET. PO SCH (08:50)
[2019-11-15] MEDS: INSULIN LISPRO 300 UNITS/3 ML VIAL. SQ SCH ×6 (08:55→17:33)
--- NOTE | 2019-11-15 09:42 | DS ---
DATE OF DISCHARGE: 11/15/2019 PRIMARY DIAGNOSIS: Chest pain due to costochondritis. ADDITIONAL DIAGNOSES: Bronchitis; end-stage renal disease, on dialysis; diabetes; bipolar depression; congestive heart failure. CHIEF COMPLAINT AND HISTORY OF PRESENT ILLNESS: This 74-year-old female is well known to me in followup in the office. The patient had a cough over the last week or 2 prior to admission, sputum production, chest pain that was sharp located towards the center of her chest, shortness of breath compared to her baseline. She had missed dialysis the day before because of feeling too bad. She complained of aches diffusely. Denied fevers, chills, nausea, vomiting, sweats, dysuria, frequency, etc. She was admitted for workup of her chest pain. SUMMARY OF STAY: The patient was admitted and covered with IV antibiotics and prednisone during the stay with improvement in her symptomatology. She was initially quite tender in left costochondral area consistent with costochondritis. Troponins were negative during the stay. She did receive dialysis 2 times during the stay. She was feeling better with her chest pain much better, cough resolving, appetite returning and she was felt she could go back to the snf with continued outpatient dialysis, on regular medicines plus Vantin 200 b.i.d. for the next week. DISPOSITION: The patient is discharged back to the snf. Please see orders regarding diet, medication, activity, etc. We will continue to follow her there. HOUSTON SILVER MD DR: KARAN/arlette JOB#: [id number] / [id number]
[2019-11-15 11:00] VITALS: BP 127/45
[2019-11-15] MEDS: ONDANSETRON PF 4 MG/2 ML VIAL. IVP PRN (11:45)
[2019-11-15] MEDS: LOSARTAN POTASSIUM 50 MG TABLET. PO SCH (11:46)
[2019-11-15] MEDS: cefTRIAXone IV Push 1 GM VIAL. IVP SCH (11:46)
[2019-11-15] MEDS: amLODIPine BESYLATE 5 MG TABLET PO SCH (11:46)
[2019-11-15] MEDS: AZITHROMYCIN 500 MG in IV NORMAL SALINE 250ML 250 ML IV SCH (12:41)
--- NOTE | 2019-11-15 14:58 | PDOC ---
Renal-Progress Notes Subjective Notes Notes HAD VOMITING AND DIARRHEA TODAY AND FEELING WEAK History of Present Illness Hx of present illness STABLE Vitals Vitals Vital Signs Date Time Temp Pulse Resp B/P (MAP) Pulse Ox O2 Delivery O2 Flow Rate FiO2 11/15/19 11:46 63 127/45 11/15/19 11:00 97.6 18 100 Room Air 97.6 Weight Weight [ ] I.O. Intake and Output Intake and Output 11/15/19 07:00 Intake Total 540 ml Balance 540 ml Intake Oral 540 ml # Bowel Movements 1 Labs Labs Laboratory Tests Test 11/14/19 18:35 11/14/19 20:25 11/15/19 08:20 11/15/19 12:24 Glucose (Fingerstick) 137 mg/dL (70-99) 295 mg/dL (70-99) 194 mg/dL (70-99) 184 mg/dL (70-99) Review of Systems Constitutional: yes: alert, oriented Ears/Nose/Throat: Yes: no symptom reported Eyes: Yes: no symptom reported Pulmonary: Yes no symptom reported Cardiovascular: Yes no symptom reported Gastrointestional: Yes: no symptom reported Genitourinary: Yes: no symptom reported Musculoskeletal: Yes: no symptom reported Skin: Yes no symptom reported Psychiatric/Neurological: Yes: no symptom reported Physical Exam General Appearance: no apparent distress Skin: warm Respiratory: bilateral CTA Heart: S1S2 Abdomen: soft, bowel sounds present Genitourinary: bladder flat Extremities: pulses present Neurology: alert Assessment Assessment IMP ? GASTROENTERITIS WITH VOMITING AND DIARRHEA DECONDITIONING BRONCHITIS WITH SOB-BETTER CHEST PAIN-RESOLVED ESRD ANEMIA HTN PLAN STARTED [facility] HD TOMORROW WILL FOLLOW CARMEN PAGE MD Nov 15, 2019 14:58
[2019-11-15 15:00] VITALS: BP 118/47
[2019-11-15 19:17] VITALS: BP 136/61
[2019-11-15] MEDS: CALCIUM CARBONATE 500 MG TAB.CHEW PO SCH (20:59)
[2019-11-15] MEDS: CETIRIZINE HCL 10 MG TABLET. PO SCH (20:59)
[2019-11-15] MEDS: traZODone 50 MG TABLET. PO PRN (20:59)
[2019-11-15] MEDS: traMADol 50 MG TABLET PO PRN (20:59)
[2019-11-15] MEDS: INSULIN GLARGINE SYRINGE. SQ SCH (21:11)
[2019-11-15 22:00] VITALS: BP 154/51
[2019-11-16 02:55] VITALS: BP 144/54
[2019-11-16 05:49] LABS: CALCIUM 8.9 mg/dL (8.5-10.1); CREATININE 5.9 mg/dL (0.6-1.0); POTASSIUM 4.3 mmol/L (3.5-5.1)
[2019-11-16] MEDS: LEVOTHYROXINE 88 MCG TABLET PO SCH (06:21)
[2019-11-16 07:00] VITALS: BP 175/71
[2019-11-16] MEDS: CALCIUM ACETATE 667 MG CAPSULE PO SCH ×3 (08:00→17:38)
[2019-11-16] MEDS: INSULIN LISPRO 300 UNITS/3 ML VIAL. SQ SCH ×6 (08:00→17:43)
[2019-11-16] MEDS ORDERED: IV NORMAL SALINE 1000ML BAG 1,000 ML IV PRN ×2 (08:41)
[2019-11-16] MEDS ORDERED: DIALYSIS PATIENT. MC PRN (08:45)
[2019-11-16] MEDS ORDERED: diphenhydrAMINE 50 MG/ML VIAL IV PRN ×2 (08:45)
[2019-11-16] MEDS: predniSONE 20 MG TABLET PO SCH (12:19)
[2019-11-16] MEDS: guaiFENesin DM 600/30MG 1 TAB TAB.ER.12H PO SCH ×2 (12:19→21:25)
[2019-11-16] MEDS: LOSARTAN POTASSIUM 50 MG TABLET. PO SCH (12:22)
[2019-11-16] MEDS: ISOSORBIDE MONONITRATE ER 30 MG TAB.ER.24H PO SCH (12:23)
[2019-11-16] MEDS: LACTOBACILLUS RHAMNOSUS GG 1 CAPSULE. PO SCH ×2 (12:23→21:25)
[2019-11-16] MEDS: DONEPEZIL HCL 10 MG TABLET. PO SCH (12:23)
[2019-11-16] MEDS: hydrALAZINE 25 MG TABLET PO SCH ×2 (12:23→21:27)
[2019-11-16] MEDS: amLODIPine BESYLATE 5 MG TABLET PO SCH (12:24)
[2019-11-16] MEDS: MULTIVITAMIN with MINERAL TABLET. PO SCH (12:24)
[2019-11-16] MEDS: DIVALPROEX EXTENDED RELEASE 250 MG TAB.ER.24H. PO SCH (12:24)
[2019-11-16] MEDS: QUEtiapine 25 MG TABLET. PO SCH ×2 (12:24→21:25)
[2019-11-16] MEDS: busPIRone 5 MG TABLET. PO SCH ×3 (12:24→21:25)
[2019-11-16] MEDS: cefTRIAXone IV Push 1 GM VIAL. IVP SCH (12:25)
[2019-11-16] MEDS: AZITHROMYCIN 500 MG in IV NORMAL SALINE 250ML 250 ML IV SCH (12:26)
--- NOTE | 2019-11-16 12:56 | PDOC ---
Renal-Progress Notes Subjective Notes Notes NO NEW COMPLAINTS History of Present Illness Hx of present illness STABLE Vitals Vitals Vital Signs Date Time Temp Pulse Resp B/P (MAP) Pulse Ox O2 Delivery O2 Flow Rate FiO2 11/16/19 12:24 54 139/58 11/16/19 07:00 97.9 16 99 Room Air 97.9 Weight Weight [ ] I.O. Intake and Output Intake and Output 11/16/19 07:00 Intake Total 670 ml Balance 670 ml Intake Oral 670 ml # Voids 2 # Bowel Movements 3 Labs Labs Laboratory Tests Test 11/15/19 17:24 11/15/19 20:47 11/16/19 03:40 11/16/19 08:06 Glucose (Fingerstick) 300 mg/dL (70-99) 301 mg/dL (70-99) 151 mg/dL (70-99) Sodium Level 138 mmol/L (136-145) Potassium Level 4.3 mmol/L (3.5-5.1) Chloride Level 98 mmol/L (98-107) Carbon Dioxide Level 33 mmol/L (21-32) Anion Gap 7 (6-14) Blood Urea Nitrogen 37 mg/dL (7-20) Creatinine 5.9 mg/dL (0.6-1.0) Estimated GFR (Cockcroft-Gault) 7.0 Glucose Level 104 mg/dL (70-99) Calcium Level 8.9 mg/dL (8.5-10.1) Test 11/16/19 12:19 Glucose (Fingerstick) 164 mg/dL (70-99) Review of Systems Constitutional: yes: alert, oriented Ears/Nose/Throat: Yes: no symptom reported Eyes: Yes: no symptom reported Pulmonary: Yes no symptom reported Cardiovascular: Yes no symptom reported Gastrointestional: Yes: no symptom reported Genitourinary: Yes: no symptom reported Musculoskeletal: Yes: no symptom reported Skin: Yes no symptom reported Psychiatric/Neurological: Yes: no symptom reported Physical Exam General Appearance: no apparent distress Skin: warm Respiratory: bilateral CTA Heart: S1S2 Abdomen: soft, bowel sounds present Genitourinary: bladder flat Extremities: pulses present Neurology: alert Assessment Assessment IMP ? GASTROENTERITIS WITH VOMITING AND DIARRHEA DECONDITIONING BRONCHITIS WITH SOB-BETTER CHEST PAIN-RESOLVED ESRD ANEMIA HTN PLAN STARTED ARANESP HD TODAY UF TO CARMEN YUEN MD Nov 16, 2019 12:56
--- NOTE | 2019-11-16 13:03 | NUR ---
SS following for discharge planning. SS reviewed pt chart. Pt is from [facility] and [facility], ; fax [phone]. SS contacted [facility] and verified that pt is a LTC resident from there facility and is able to return when medically stable for discharge. Discharge order on the chart from 11/15/2019, but was cancelled due to nausea and vomiting per RN. SS will continue to follow for discharge planning.
[2019-11-16 15:00] VITALS: BP 104/45
--- NOTE | 2019-11-16 15:40 | PDOC ---
GENERAL General: vss and afebrile. awake and alert and receiving dialysis. feels much better today with no vomiting so far. would like to see how she does with lunch prior to dc. sugar elevation due to steroids. visited with nursing and ok for dc and dc summary from yesterday accurate. VITAL SIGNS/I&O Vital Signs/I&O: Vital Signs Date Time Temp Pulse Resp B/P (MAP) Pulse Ox O2 Delivery O2 Flow Rate FiO2 11/16/19 12:24 54 139/58 11/16/19 08:00 Room Air 11/16/19 07:00 97.9 16 99 97.9 I & O 11/15/19 11/15/19 11/16/19 15:00 23:00 07:00 Intake Total 300 ml 320 ml 50 ml Balance 300 ml 320 ml 50 ml ALLERGIES Allergies: Allergies Coded Allergies Type Severity Reaction Last Updated Verified amoxicillin Allergy Intermediate 05/13/18 Yes clavulanic acid Allergy Intermediate 05/13/18 Yes LAB Lab: Laboratory Tests Test 11/15/19 17:24 11/15/19 20:47 11/16/19 03:40 11/16/19 08:06 Glucose (Fingerstick) 300 mg/dL (70-99) H 301 mg/dL (70-99) H 151 mg/dL (70-99) H Sodium Level 138 mmol/L (136-145) Potassium Level 4.3 mmol/L (3.5-5.1) Chloride Level 98 mmol/L (98-107) Carbon Dioxide Level 33 mmol/L (21-32) H Anion Gap 7 (6-14) Blood Urea Nitrogen 37 mg/dL (7-20) H Creatinine 5.9 mg/dL (0.6-1.0) H Estimated GFR (Cockcroft-Gault) 7.0 Glucose Level 104 mg/dL (70-99) H Calcium Level 8.9 mg/dL (8.5-10.1) Test 11/16/19 12:19 Glucose (Fingerstick) 164 mg/dL (70-99) H Laboratory Tests 11/16/19 03:40 Nutrition Consultation Dietary Evaluation: Recommendations by RD: Dietary education by RD, Increase Calorie Intake, Protein supplementation Comments: REC renal diet w/ground meats, honor food preferences, and provide snacks as requested REC dbl meat portions Expected Outcomes/Goals: PO intake to meet >75% est needs Malnutrition Findings: Food and Nutrition Intake (Mod: <75% est energy req 7days Weight Status: Appropriate HOUSTON SILVER MD Nov 16, 2019 15:40
[2019-11-16 19:49] VITALS: BP 100/42
[2019-11-16] MEDS: BENZONATATE 100 MG CAPSULE. PO PRN (21:25)
[2019-11-16] MEDS: CETIRIZINE HCL 10 MG TABLET. PO SCH (21:25)
[2019-11-16] MEDS: CALCIUM CARBONATE 500 MG TAB.CHEW PO SCH (21:25)
[2019-11-16] MEDS: INSULIN GLARGINE SYRINGE. SQ SCH (21:27)
[2019-11-16 23:38] VITALS: BP 124/56
[2019-11-17 02:15] VITALS: BP 141/60
[2019-11-17] MEDS: LEVOTHYROXINE 88 MCG TABLET PO SCH (05:37)
[2019-11-17 07:00] VITALS: BP 166/54
[2019-11-17] MEDS: INSULIN LISPRO 300 UNITS/3 ML VIAL. SQ SCH ×2 (08:00→08:53)
[2019-11-17] MEDS: MULTIVITAMIN with MINERAL TABLET. PO SCH (08:42)
[2019-11-17] MEDS: QUEtiapine 25 MG TABLET. PO SCH (08:42)
[2019-11-17] MEDS: busPIRone 5 MG TABLET. PO SCH (08:42)
[2019-11-17] MEDS: guaiFENesin DM 600/30MG 1 TAB TAB.ER.12H PO SCH (08:43)
[2019-11-17] MEDS: ISOSORBIDE MONONITRATE ER 30 MG TAB.ER.24H PO SCH (08:44)
[2019-11-17] MEDS: amLODIPine BESYLATE 5 MG TABLET PO SCH (08:45)
[2019-11-17] MEDS: LOSARTAN POTASSIUM 50 MG TABLET. PO SCH (08:45)
[2019-11-17] MEDS: predniSONE 20 MG TABLET PO SCH (08:45)
[2019-11-17] MEDS: LACTOBACILLUS RHAMNOSUS GG 1 CAPSULE. PO SCH (08:46)
[2019-11-17] MEDS: CALCIUM ACETATE 667 MG CAPSULE PO SCH (08:46)
[2019-11-17] MEDS: BENZONATATE 100 MG CAPSULE. PO PRN (08:46)
[2019-11-17] MEDS: DONEPEZIL HCL 10 MG TABLET. PO SCH (08:46)
[2019-11-17 08:47] VITALS: BP 166/54
[2019-11-17] MEDS: hydrALAZINE 25 MG TABLET PO SCH (08:47)
[2019-11-17] MEDS: DIVALPROEX EXTENDED RELEASE 250 MG TAB.ER.24H. PO SCH (08:47)
--- NOTE | 2019-11-17 09:53 | PDOC ---
GENERAL General: vss and afebrile. sugars variable. no further nausea, vomiting, or chest pain. cough is improving. exam stable. dc held yesterday and will go today. dc summary is still accurate. VITAL SIGNS/I&O Vital Signs/I&O: Vital Signs Date Time Temp Pulse Resp B/P (MAP) Pulse Ox O2 Delivery O2 Flow Rate FiO2 11/17/19 08:47 64 166/54 11/17/19 02:15 98.0 16 97 Room Air 98.0 I & O 11/16/19 11/16/19 11/17/19 15:00 23:00 07:00 Intake Total 960 ml Balance 960 ml ALLERGIES Allergies: Allergies Coded Allergies Type Severity Reaction Last Updated Verified amoxicillin Allergy Intermediate 05/13/18 Yes clavulanic acid Allergy Intermediate 05/13/18 Yes LAB Lab: Laboratory Tests Test 11/16/19 12:19 11/16/19 16:56 11/16/19 20:29 11/17/19 08:47 Glucose (Fingerstick) 164 mg/dL (70-99) H 240 mg/dL (70-99) H 267 mg/dL (70-99) H 193 mg/dL (70-99) H Nutrition Consultation Dietary Evaluation: Recommendations by RD: Dietary education by RD, Increase Calorie Intake, Protein supplementation Comments: REC renal diet w/ground meats, honor food preferences, and provide snacks as requested REC dbl meat portions Expected Outcomes/Goals: PO intake to meet >75% est needs Malnutrition Findings: Food and Nutrition Intake (Mod: <75% est energy req 7days Weight Status: Appropriate HOUSTON SILVER MD Nov 17, 2019 09:53
--- NOTE | 2019-11-17 10:47 | NUR ---
SS following up with discharge planning. Discharge orders received for return to [facility], ; fax [phone]. SS phoned and faxed discharge orders and referral packet to [facility]. Pt will discharge today and return to [facility] at 1130. [facility] to provide transportation. Pt, pt's RN, and pt's daughter notified.
[2019-11-17] MEDS ORDERED: CEFDINIR 300 MG CAPSULE PO SCH (11:00)
[2019-11-17] MEDS: traMADol 50 MG TABLET PO PRN (11:18)
--- NOTE | 2019-11-17 11:36 | NUR ---
Discharge Note: HECTOR GRESHAM H [address] [place] [address] Discharge instructions and discharge home medications reviewed with Patient and a copy given. All questions have been answered and understanding verbalized. The following instructions and handouts were given: Discontinued IV lines Patient discharged to [place] with wheelchair via transport
[2019-11-20] MEDS ORDERED: ERGOCALCIFEROL (VITAMIN D2) 50,000 UNIT CAPSULE. PO SCH (09:00)
== END 2019-11-17 11:30 | disposition home or self-care (01) | DRG 205 ==
LOC: ER 12:02 → 2 SOUTH 14:03
PROVIDERS: ADMIT Family Medicine; ATTEND Family Medicine
PROC: 5A1D70Z Performance of Urinary Filtration, Intermittent, Less than 6 Hours Per Day (ICD-10-PCS; 2019-11-13)
PROC: 5A1D70Z Performance of Urinary Filtration, Intermittent, Less than 6 Hours Per Day (ICD-10-PCS; 2019-11-14)
PROC: 5A1D70Z Performance of Urinary Filtration, Intermittent, Less than 6 Hours Per Day (ICD-10-PCS; principal; 2019-11-16)
DX: M94.0 Chondrocostal junction syndrome [Tietze] (principal); N18.6 End stage renal disease; I13.2 Hypertensive heart and chronic kidney disease with heart failure and with stage 5 chronic kidney disease, or end stage renal disease; F31.30 Bipolar disorder, current episode depressed, mild or moderate severity, unspecified; J40 Bronchitis, not specified as acute or chronic; D64.9 Anemia, unspecified; E03.9 Hypothyroidism, unspecified; E11.22 Type 2 diabetes mellitus with diabetic chronic kidney disease; E78.00 Pure hypercholesterolemia, unspecified; E78.5 Hyperlipidemia, unspecified; F03.90 Unspecified dementia, unspecified severity, without behavioral disturbance, psychotic disturbance, mood disturbance, and anxiety; I27.20 Pulmonary hypertension, unspecified; I50.9 Heart failure, unspecified; Z82.0 Family history of epilepsy and other diseases of the nervous system; Z87.11 Personal history of peptic ulcer disease; Z87.891 Personal history of nicotine dependence; Z90.710 Acquired absence of both cervix and uterus; Z99.2 Dependence on renal dialysis; E21.3 Hyperparathyroidism, unspecified; F41.9 Anxiety disorder, unspecified; G62.9 Polyneuropathy, unspecified; K21.9 Gastro-esophageal reflux disease without esophagitis; M19.90 Unspecified osteoarthritis, unspecified site; Z88.8 Allergy status to other drugs, medicaments and biological substances
CPT/HCPCS: 36415; 71045; 80048; 80053; 80164; 82553; 82962; 83690; 83735; 83880; 84484; 85025; 93005; J0456; J0696; J0882; J1815; J2405; J7050; J7512; Q0162; Q0163; 99285-25; G0378; J7030

== ENCOUNTER 2020-07-09 13:17 | Inpatient (IN) | payer MEDICARE, OTHER ==
[~2020-07-09] VITALS: Ht 154.9 cm; Wt 64.4 kg
[~2020-07-09 13:17] MED LIST changes: -ASCO-219 PO; +ASCO500T53 PO; +BENZ200C47 PO; +CARB15DR65 EACHEYE; -CETI10TA24 PO; +CETI10TA74 PO; +DEXT15SY9 PO; -LEVO88TA2 PO; +LEVO88TA70 PO; +MELA3TAB4 PO; -MELA3TAB56 PO; +MULT-445 PO; -MULT1TAB52 PO
[2020-07-09 13:55] LABS: BASO # 0.1 x10^3/uL (0.0-0.2); BASO % 1 % (0-3); EOS # 0.2 x10^3/uL (0.0-0.7); EOS % 5 % (0-3); HEMATOCRIT 35.6 % (36.0-47.0); HEMOGLOBIN 12.3 g/dL (12.0-15.5); LYMPH # 1.3 x10^3/uL (1.0-4.8); LYMPH % 24 % (24-48); MEAN CORPUSCULAR HEMOGLOBIN 33 pg (25-35); MEAN CORPUSCULAR HGB CONC 35 g/dL (31-37); MEAN CORPUSCULAR VOLUME 97 fL (79-100); MONO # 0.4 x10^3/uL (0.0-1.1); MONO % 7 % (0-9); NEUT # 3.3 x10^3/uL (1.8-7.7); NEUT % 63 % (31-73); PLATELET COUNT 128 x10^3/uL (140-400); RED BLOOD COUNT 3.67 x10^6/uL (3.50-5.40); RED CELL DISTRIBUTION WIDTH 19.1 % (11.5-14.5); WHITE BLOOD COUNT 5.2 x10^3/uL (4.0-11.0)
[2020-07-09 14:06] LABS: PROTHROMBIN TIME PATIENT 14.1 SEC (11.7-14.0)
[2020-07-09 14:10] LABS: ALBUMIN 3.2 g/dL (3.4-5.0); ALBUMIN/GLOBULIN RATIO 0.9 (1.0-1.7); CALCIUM 8.2 mg/dL (8.5-10.1); CREATININE 11.5 mg/dL (0.6-1.0); GFR 3.2; MAGNESIUM 2.5 mg/dL (1.8-2.4); TOTAL BILIRUBIN 0.4 mg/dL (0.2-1.0); TOTAL PROTEIN 6.9 g/dL (6.4-8.2)
[2020-07-09 14:15] LABS: POTASSIUM 6.4 mmol/L (3.5-5.1)
--- NOTE | 2020-07-09 14:36 | RAD ---
INDICATION: Reason: chest pain,pt states left sided chest pain. / Spl. Instructions: / History: COMPARISON: 12/30/2019 FINDINGS: Single view of chest obtained. Enlarged cardiomediastinal silhouette with loop recorder projecting over the heart. Stent is seen within the left subclavian region. The appearance the lungs is similar to prior without a new region of airspace consolidation. IMPRESSION: * Enlarged cardiomediastinal silhouette is again seen without a new region of airspace consolidation. Electronically signed by: Erick Pelayo MD (07/09/2020 2:33 PM) [id number]
--- NOTE | 2020-07-09 14:49 | PHYS DOC ---
Past Medical History Past Medical History: Anemia, Anxiety, Arthritis, Bipolar, CHF, Dementia, Depression, Diabetes-Type II, GERD, High Cholesterol, Hypertension, Hypothyroid, Renal Failure Additional Past Medical Histor: major depressive disorder, Sick sinus synd, alzheimer's, Past Surgical History: Hysterectomy Additional Past Surgical Histo: DIALYSIS SHUNT/FISTULA LEFT SIDE Smoking Status: Former Smoker Alcohol Use: None Drug Use: None General Adult EDM: Chief Complaint: WEAKNESS/GENERALIZED HPI: HPI: Patient is a 75 year old AA female who presents to the emergency department via EMS from [facility] with reports of generalized weakness, and missing her last 3 dialysis appointments. Patient states that the last time she went to dialysis someone told her that she was crazy and that no one is nice to her or speaks to her at the dialysis facility. Causing her to no longer want to receive her dialysis treatment there. The patient reports that this is the reason she has refused to go to dialysis recently. She denies any fever, cough, chest pain, shortness of breath, body aches, nausea, vomiting, diarrhea, abdominal pain, or fatigue. Patient states that her lower extremities are swollen but they are not tender at this time. She currently denies any complaints. Review of Systems: Review of Systems: Constitutional: Denies fever or chills; see HPI. [] HENT: Denies nasal congestion or sore throat. [] Respiratory: Denies cough or shortness of breath. [] Cardiovascular: Denies chest pain; reports bilateral lower extremity swelling that is chronic GI: Denies abdominal pain, nausea, vomiting, or diarrhea. [] : Reports she last urinated this morning, patient states she urinates once a day. She denies dysuria or hematuria, Musculoskeletal: Denies back pain or joint pain. [] Integument: Denies rash. [] Neurologic: Denies headache, focal weakness or sensory changes. [] Lymphatic: Denies swollen glands. [] Psychiatric: Denies depression or anxiety; see HPI [] Heart Score: Risk Factors: Risk Factors: DM, Current or recent (<one month) smoker, HTN, HLP, family history of CAD, obesity. Risk Scores: Score 0 - 3: 2.5% MACE over next 6 weeks - Discharge Home Score 4 - 6: 20.3% MACE over next 6 weeks - Admit for Clinical Observation Score 7 - 10: 72.7% MACE over next 6 weeks - Early Invasive Strategies Allergies: Allergies: Allergies Coded Allergies Type Severity Reaction Last Updated Verified amoxicillin Allergy Intermediate 05/13/18 Yes clavulanic acid Allergy Intermediate 05/13/18 Yes Physical Exam: PE: Constitutional: Well developed, well nourished, no acute distress, non-toxic appearance. [] HENT: Normocephalic, atraumatic, bilateral external ears normal, nose normal. [] Eyes: PERRLA, EOMI, conjunctiva normal, no discharge. [] Neck: Normal range of motion, no stridor. [] Cardiovascular:Heart rate regular bradycardic rhythm Lungs & Thorax: Bilateral breath sounds clear to auscultation, respirations even and unlabored, no retractions, no respiratory distress [] Abdomen: soft, no tenderness Skin: Warm, dry, no erythema, no rash. [] Extremities: No cyanosis, ROM intact; left arm: AV fistula present positive bruit, positive thrill; anterior L shoulder TTP without deformity, crepitus, or ededma; 2+ edema bilateral lower extremities;, no erythema, no warmth, no tenderness Neurologic: Alert and oriented X 3, no focal deficits noted. [] Psychologic: Affect normal, judgement normal, mood normal. [] Current Patient Data: Labs: Laboratory Tests Test 07/09/20 13:45 White Blood Count 5.2 x10^3/uL (4.0-11.0) Red Blood Count 3.67 x10^6/uL (3.50-5.40) Hemoglobin 12.3 g/dL (12.0-15.5) Hematocrit 35.6 % (36.0-47.0) L Mean Corpuscular Volume 97 fL (79-100) Mean Corpuscular Hemoglobin 33 pg (25-35) Mean Corpuscular Hemoglobin Concent 35 g/dL (31-37) Red Cell Distribution Width 19.1 % (11.5-14.5) H Platelet Count 128 x10^3/uL (140-400) L Neutrophils (%) (Auto) 63 % (31-73) Lymphocytes (%) (Auto) 24 % (24-48) Monocytes (%) (Auto) 7 % (0-9) Eosinophils (%) (Auto) 5 % (0-3) H Basophils (%) (Auto) 1 % (0-3) Neutrophils # (Auto) 3.3 x10^3/uL (1.8-7.7) Lymphocytes # (Auto) 1.3 x10^3/uL (1.0-4.8) Monocytes # (Auto) 0.4 x10^3/uL (0.0-1.1) Eosinophils # (Auto) 0.2 x10^3/uL (0.0-0.7) Basophils # (Auto) 0.1 x10^3/uL (0.0-0.2) Prothrombin Time 14.1 SEC (11.7-14.0) H Prothrombin Time INR 1.1 (0.8-1.1) Activated Partial Thromboplast Time 32 SEC (24-38) Sodium Level 139 mmol/L (136-145) Potassium Level 6.4 mmol/L (3.5-5.1) *H Chloride Level 102 mmol/L (98-107) Carbon Dioxide Level 26 mmol/L (21-32) Anion Gap 11 (6-14) Blood Urea Nitrogen 108 mg/dL (7-20) H Creatinine 11.5 mg/dL (0.6-1.0) H Estimated GFR (Cockcroft-Gault) 3.2 BUN/Creatinine Ratio 9 (6-20) Glucose Level 110 mg/dL (70-99) H Calcium Level 8.2 mg/dL (8.5-10.1) L Magnesium Level 2.5 mg/dL (1.8-2.4) H Total Bilirubin 0.4 mg/dL (0.2-1.0) Aspartate Amino Transferase (AST) 19 U/L (15-37) Alanine Aminotransferase (ALT) 10 U/L (14-59) L Alkaline Phosphatase 121 U/L (46-116) H ML-Kta-V-Type Natriuretic Peptide 65360 pg/mL (0-124) H Total Protein 6.9 g/dL (6.4-8.2) Albumin 3.2 g/dL (3.4-5.0) L Albumin/Globulin Ratio 0.9 (1.0-1.7) L Lipase 143 U/L (73-393) Laboratory Tests 07/09/20 13:45 Laboratory Tests 07/09/20 13:45 Vital Signs: Vital Signs Date Time Temp Pulse Resp B/P (MAP) Pulse Ox O2 Delivery O2 Flow Rate FiO2 07/09/20 13:25 97.7 58 18 173/65 (101) 100 Room Air 97.7 EKG: EK- sinus william, rate 52, no STEMI read by Dr. De Anda[] Radiology/Procedures: Radiology/Procedures: PROCEDURE: SHOULDER 2+V LEFT SHOULDER 2+V LEFT History: Reason: L shoulder pain / Spl. Instructions: / History: Technique: 3 views left shoulder. Comparison: None. Findings: Normal alignment of the lateral humeral and acromioclavicular joints. No fracture. Vascular stent projecting over the left axillary region. Impression: 1. No acute osseous abnormality.[] PROCEDURE: CHEST AP ONLY INDICATION: Reason: chest pain,pt states left sided chest pain. / Spl. Instructions: / History: COMPARISON: 12/30/2019 FINDINGS: Single view of chest obtained. Enlarged cardiomediastinal silhouette with loop recorder projecting over the heart. Stent is seen within the left subclavian region. The appearance the lungs is similar to prior without a new region of airspace consolidation. IMPRESSION: * Enlarged cardiomediastinal silhouette is again seen without a new region of airspace consolidation. Course & Med Decision Making: Course & Med Decision Making Pertinent Labs and Imaging studies reviewed. (See chart for details) 1448- Spoke with Dr. Robledo about patient in the ER. Plan to admit pt for CRF, hyperkalemia, and weakness. Will consult him on admit orders. [id number]-spoke with who is the admitting physician, and care was assumed following discussion of patient. Will admit patient for chronic renal failure, hyperkalemia, and weakness. I advised him that had spoke with Dr. Robledo and patient will be receiving dialysis Patient's vital signs stable. Patient remains afebrile, appears nontoxic, respirations even and unlabored. Patient will be admitted to the med/tele floor. Patient's case and plan of care also discussed with dr. De Anda [] Ulysses Disclaimer: Ulysses Disclaimer: This electronic medical record was generated, in whole or in part, using a voice recognition dictation system. Departure Departure Impression: Primary Impression: CRF (chronic renal failure) Qualified Codes: N18.9 - Chronic kidney disease, unspecified Additional Impressions: Hyperkalemia Weakness Left anterior shoulder pain Disposition: 09 ADMITTED INPATIENT Admitting Physician: Houston Reid Condition: STABLE Referrals: HOUSTON REID MD (PCP) Justicifation of Admission Dx: Justifications for Admission: Justification of Admission Dx: Yes Acute Renal Failure: Serum Cr > 4mg/dL RACHEL CATHERINE APRN Jul 09, 2020 14:49
--- NOTE | 2020-07-09 14:52 | EKG ---
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
[2020-07-09] MEDS ORDERED: IV NORMAL SALINE 1000ML BAG 1,000 ML IV PRN ×2 (15:10)
--- NOTE | 2020-07-09 15:10 | RAD ---
SHOULDER 2+V LEFT History: Reason: L shoulder pain / Spl. Instructions: / History: Technique: 3 views left shoulder. Comparison: None. Findings: Normal alignment of the lateral humeral and acromioclavicular joints. No fracture. Vascular stent projecting over the left axillary region. Impression: 1. No acute osseous abnormality. Electronically signed by: Willian Denson DO (07/09/2020 3:07 PM) [facility]
[2020-07-09] MEDS ORDERED: DIALYSIS PATIENT. MC PRN ×2 (15:15)
[2020-07-09] MEDS ORDERED: ALBUMIN HUMAN 25% 200 ML IV PRN (15:15)
[2020-07-09 20:00] VITALS: BP 147/45
--- NOTE | 2020-07-09 20:10 | NUR ---
Patient received from dialysis, history obtained, not good historian r/t dementia, most obtained from chart, and patient asked to verify, did have trouble with some of her history. call light given, plan of care discussed, patient given patient information book, bed alarm activated. monitoring
[2020-07-09 22:57] VITALS: BP 172/45
[2020-07-09] MEDS ORDERED: APIX2.5T PO (23:25)
[2020-07-09] MEDS ORDERED: ATOR20TA58 PO (23:25)
[2020-07-09] MEDS ORDERED: LOPE-101 PO (23:25)
[2020-07-09] MEDS ORDERED: INSU100I13 SQ (23:25)
[2020-07-09] MEDS ORDERED: LEVO175T5 PO (23:25)
[2020-07-09] MEDS ORDERED: PROM118S10 PO (23:25)
[2020-07-09] MEDS ORDERED: POTA10TA12 PO (23:25)
[2020-07-09] MEDS ORDERED: AMIO100T4 PO (23:25)
[2020-07-09] MEDS ORDERED: METO-239 PO (23:25)
[2020-07-09] MEDS ORDERED: ONDANSETRON ODT 4 MG TAB.RAPDIS. PO PRN (23:30)
[2020-07-09] MEDS ORDERED: LOPERAMIDE 2 MG CAPSULE PO PRN (23:30)
[2020-07-09] MEDS ORDERED: BENZONATATE 100 MG CAPSULE. PO PRN (23:30)
[2020-07-09] MEDS ORDERED: DOCUSATE SODIUM 100 MG CAPSULE. PO PRN (23:30)
[2020-07-09] MEDS ORDERED: guaiFENesin DM 200MG/20MG 10 ML SYRUP PO PRN (23:30)
[2020-07-09] MEDS ORDERED: traMADol 50 MG TABLET PO PRN (23:30)
[2020-07-09] MEDS ORDERED: NON FORMULARY ITEM (Nystatin/Triamcin (Nystatin-Triamcinolone Cream) 1 APP) TP PRN (23:30)
[2020-07-10] MEDS ORDERED: CALCIUM CARBONATE 500 MG PO SCH
[2020-07-10] MEDS ORDERED: CALCIUM CARBONATE 500 MG TAB.CHEW PO SCH (00:04)
[2020-07-10] MEDS: ATORVASTATIN CALCIUM 20 MG TABLET PO SCH ×2 (00:58→20:59)
[2020-07-10] MEDS: QUEtiapine 25 MG TABLET. PO SCH ×3 (00:58→20:59)
[2020-07-10] MEDS: hydrALAZINE 25 MG TABLET PO SCH ×3 (00:58→20:59)
[2020-07-10] MEDS: APIXABAN 2.5 MG TABLET. PO SCH ×3 (00:58→20:58)
[2020-07-10] MEDS: CETIRIZINE HCL 10 MG TABLET. PO SCH ×2 (00:59→20:58)
[2020-07-10] MEDS: busPIRone 5 MG TABLET. PO SCH ×4 (00:59→20:58)
[2020-07-10] MEDS ORDERED: NYSTATIN 100,000 UNIT/GM TOPICAL CREAM 15GM TUBE. TP PRN (02:15)
[2020-07-10] MEDS ORDERED: TRIAMCINOLONE ACETONIDE 0.1% TOPICAL CREAM 15GM TUBE. TP PRN (02:15)
[2020-07-10 03:00] VITALS: BP 150/98
[2020-07-10] MEDS ORDERED: INSULIN LISPRO 300 UNITS/3 ML VIAL. SQ PRN (05:45)
[2020-07-10] MEDS: LEVOTHYROXINE 175 MCG TABLET PO SCH (06:10)
[2020-07-10 07:00] VITALS: BP 166/52
--- NOTE | 2020-07-10 07:59 | PDOC ---
DATE OF SERVICE: DATE: 07/10/20 TIME: 07:58 GENERAL General: see dictated H&P. VITAL SIGNS/I&O Vital Signs/I&O: Vital Signs Date Time Temp Pulse Resp B/P (MAP) Pulse Ox O2 Delivery O2 Flow Rate FiO2 07/10/20 07:00 97.6 51 16 166/52 (90) 100 Room Air 97.6 I & O 07/09/20 07/09/20 07/10/20 15:00 23:00 07:00 Intake Total 200 ml 200 ml Output Total 0 ml Balance 200 ml 200 ml ALLERGIES Allergies: Allergies Coded Allergies Type Severity Reaction Last Updated Verified amoxicillin Allergy Intermediate 05/13/18 Yes clavulanic acid Allergy Intermediate 05/13/18 Yes MEDS Medications: Current Medications Medications (Trade) Dose Ordered Sig/Angeles Route PRN Reason Start Time Stop Time Status Last Admin Dose Admin Apixaban (Eliquis) 2.5 mg BID PO 07/10/20 00:00 07/10/20 00:58 Atorvastatin Calcium (Lipitor) 20 mg HS PO 07/10/20 00:00 07/10/20 00:58 Buspirone HCl (Buspar) 5 mg TID PO 07/10/20 00:00 07/10/20 00:59 Cetirizine HCl (ZyrTEC) 10 mg HS PO 07/10/20 00:00 07/10/20 00:59 Hydralazine HCl (Apresoline) 25 mg BID PO 07/10/20 00:00 07/10/20 00:58 Levothyroxine Sodium (Synthroid) 175 mcg DAILY06 PO 07/10/20 06:00 07/10/20 06:10 Quetiapine Fumarate (SEROquel) 50 mg BID PO 07/10/20 00:00 07/10/20 00:58 LAB Lab: Laboratory Tests Test 07/09/20 13:45 07/09/20 18:52 07/10/20 07:21 White Blood Count 5.2 x10^3/uL (4.0-11.0) Red Blood Count 3.67 x10^6/uL (3.50-5.40) Hemoglobin 12.3 g/dL (12.0-15.5) Hematocrit 35.6 % (36.0-47.0) L Mean Corpuscular Volume 97 fL (79-100) Mean Corpuscular Hemoglobin 33 pg (25-35) Mean Corpuscular Hemoglobin Concent 35 g/dL (31-37) Red Cell Distribution Width 19.1 % (11.5-14.5) H Platelet Count 128 x10^3/uL (140-400) L Neutrophils (%) (Auto) 63 % (31-73) Lymphocytes (%) (Auto) 24 % (24-48) Monocytes (%) (Auto) 7 % (0-9) Eosinophils (%) (Auto) 5 % (0-3) H Basophils (%) (Auto) 1 % (0-3) Neutrophils # (Auto) 3.3 x10^3/uL (1.8-7.7) Lymphocytes # (Auto) 1.3 x10^3/uL (1.0-4.8) Monocytes # (Auto) 0.4 x10^3/uL (0.0-1.1) Eosinophils # (Auto) 0.2 x10^3/uL (0.0-0.7) Basophils # (Auto) 0.1 x10^3/uL (0.0-0.2) Prothrombin Time 14.1 SEC (11.7-14.0) H Prothrombin Time INR 1.1 (0.8-1.1) Activated Partial Thromboplast Time 32 SEC (24-38) Sodium Level 139 mmol/L (136-145) Potassium Level 6.4 mmol/L (3.5-5.1) *H Chloride Level 102 mmol/L (98-107) Carbon Dioxide Level 26 mmol/L (21-32) Anion Gap 11 (6-14) Blood Urea Nitrogen 108 mg/dL (7-20) H Creatinine 11.5 mg/dL (0.6-1.0) H Estimated GFR (Cockcroft-Gault) 3.2 BUN/Creatinine Ratio 9 (6-20) Glucose Level 110 mg/dL (70-99) H Calcium Level 8.2 mg/dL (8.5-10.1) L Magnesium Level 2.5 mg/dL (1.8-2.4) H Total Bilirubin 0.4 mg/dL (0.2-1.0) Aspartate Amino Transferase (AST) 19 U/L (15-37) Alanine Aminotransferase (ALT) 10 U/L (14-59) L Alkaline Phosphatase 121 U/L (46-116) H CZ-Yvd-Y-Type Natriuretic Peptide 25924 pg/mL (0-124) H Total Protein 6.9 g/dL (6.4-8.2) Albumin 3.2 g/dL (3.4-5.0) L Albumin/Globulin Ratio 0.9 (1.0-1.7) L Lipase 143 U/L (73-393) Glucose (Fingerstick) 95 mg/dL (70-99) 121 mg/dL (70-99) H Laboratory Tests 07/09/20 13:45 Laboratory Tests 07/09/20 13:45 HOUSTON SILVER MD Jul 10, 2020 07:59
[2020-07-10] MEDS ORDERED: POTASSIUM CHLORIDE 10 MEQ TABLET.ER. PO SCH (08:00)
[2020-07-10] MEDS ORDERED: NON FORMULARY ITEM (Hydrocortisone 1 APP) TP SCH (09:00)
--- NOTE | 2020-07-10 09:21 | HP ---
ADMIT DATE: 07/09/2020 CHIEF COMPLAINT AND HISTORY OF PRESENT ILLNESS: This is a 75-year-old female is well known to me, followed up for years in the office and now at [facility]. The patient is admitted through the Emergency Room on the day of admission after missing at least 2 sessions of dialysis because they are "mean" to her therein. She has become symptomatic, not feeling well, and was found to be hyperkalemic as well as some volume overloaded and admitted for dialysis. PAST MEDICAL HISTORY: Remarkable for anemia of chronic disease, bipolar, depression, anxiety, osteoarthritis of the knees, diabetes, hyperlipidemia, hypertension, hypothyroidism, end-stage renal disease. PRIOR SURGICAL HISTORY: Remarkable for prior hysterectomy and dialysis, shunt placement. SOCIAL HISTORY: She is a nonsmoker, nondrinker, does not use drugs, penit[facility]iary resident. ALLERGIES: SHE IS ALLERGIC TO AUGMENTIN. MEDICATIONS: Brought with the patient, listed on the computer and have been addressed. FAMILY HISTORY: Noncontributory. REVIEW OF SYSTEMS: As mentioned above. PHYSICAL EXAMINATION: GENERAL: She is a well-developed, well-nourished female, in no acute distress. VITAL SIGNS: Stable. She is afebrile. Blood pressures were somewhat elevated. HEAD, EYES, EARS, NOSE AND THROAT: Unremarkable. NECK: Supple, without adenopathy or thyromegaly. CHEST: Clear to auscultation and percussion. No rub was heard. HEART: Regular rate. ABDOMEN: Soft, nontender, without hepatosplenomegaly or masses. EXTREMITIES: Without cyanosis, clubbing, edema. NEUROLOGIC: She is intact. LABORATORY AND DIAGNOSTIC DATA: Initial laboratory is remarkable for a fairly unremarkable CBC. Potassium 6.4, BUN 108, creatinine 11.5. IMPRESSION: Hyperkalemia due to missing dialysis with end-stage renal disease and other problems listed above. PLAN: Admission. Semi-urgent dialysis. We will have to have a long talk with her regarding future of this and whether she would prefer not to do dialysis and not be here. HOUSTON SILVER MD DR: KARAN/arlette JOB#: [id number] / [id number]
[2020-07-10] MEDS: ERGOCALCIFEROL (VITAMIN D2) 50,000 UNIT CAPSULE. PO SCH (09:42)
[2020-07-10] MEDS: ISOSORBIDE MONONITRATE ER 30 MG TAB.ER.24H PO SCH (09:42)
[2020-07-10] MEDS: CALCIUM ACETATE 667 MG CAPSULE PO SCH ×3 (09:43→18:22)
[2020-07-10] MEDS: DIVALPROEX EXTENDED RELEASE 250 MG TAB.ER.24H. PO SCH (09:43)
[2020-07-10] MEDS: METOPROLOL SUCC 24HR ER 25 MG TAB.ER.24H. PO SCH (09:43)
[2020-07-10] MEDS: amLODIPine BESYLATE 5 MG TABLET PO SCH (09:44)
[2020-07-10] MEDS: AMIODARONE HCL 200 MG TABLET. PO SCH (09:44)
[2020-07-10] MEDS: MULTIVITAMIN with MINERAL TABLET. PO SCH (09:44)
[2020-07-10] MEDS: DONEPEZIL HCL 10 MG TABLET. PO SCH (09:45)
[2020-07-10] MEDS: POLYVINYL ALCOHOL 1.4% OPHTH SOLUTION 15ML BOTTLE. OU SCH ×2 (09:53→20:58)
[2020-07-10] MEDS: INSULIN LISPRO 300 UNITS/3 ML VIAL. SQ SCH ×3 (09:58→18:27)
--- NOTE | 2020-07-10 10:29 | NUR ---
ASHA following. Discussed with RN. 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 ASHA verified pt does NOT need a COVID-19 test to return. PT/OT ordered. ASHA will continue to follow for discharge planning.
[2020-07-10 11:00] VITALS: BP 135/48
[2020-07-10 14:56] VITALS: BP 142/51
--- NOTE | 2020-07-10 15:06 | PDOC2 ---
CONSULT Date of Consult Date of Consult DATE: 07/10/20 TIME: 14:59 Reason for Consult Reason for Consult: ESRD AND HIGH K Referring Physician Referring Physician: APPL Identification/Chief Complaint Chief Complaint HIGH K AND MISSED HD Source Source: Chart review, Patient History of Present Illness Reason for Visit: THIS IS A 75 YR OLD WITH ESRD NO HD ON TTS. DID NOT GO TO HER HD FOR HER LAST TX. STATED THAT THE STAFF WAS MEAN TO HER AT THE DIALYSIS CENTER. APPARENTLY [facility]ENT TO [facility] CRYING AFTER HER LAST TX THERE. D/W DIALYSIS UNIT STAFF AND THERE WAS NO INCIDENT. PER STAFF SHE HAD A VERY GOOD TREATMENT AND DID NOT HAVE ANY ISSUES WITH ANYONE WHILE THERE. SHE HAS EXHIBITED THIS TYPE OF BEHAVIOUR IN THE PAST. HER FAMILY WAS NOTIFIED AND THEY ARE AWARE OF THIS TYPE OF BEHAVIOUR WHEN SHE IS ATTENTION SEEKING AND HAS BEEN SATISFIED WITH HER DIALYSIS UNIT. LABS ARE C/W ESRD AND HIGH K NOTED PRECIPITATING ADMISSION. SHE HAS A HX OF PERSONALITY DZ AND BIPOLAR DZ WELL Past Medical History Cardiovascular: HTN, Valve insufficiency, Pulmonary hypertension Pulmonary: No pertinent hx CENTRAL NERVOUS SYSTEM: Dementia, Periperal neuropathy GI: GERD, Peptic Ulcer disease Heme/Onc: No pertinent hx Hepatobiliary: No pertinent hx Psych: Bipolar Rheumatologic: No pertinent hx Infectious disease: No pertinent hx Renal/: Chronic renal failure Endocrine: Diabetes, Hyperparathyroidism Past Surgical History Past Surgical History: Hysterectomy Family History Family History: Alzheimer's Disease Social History ALCOHOL: none Drugs: None Lives: with Family Current Problem List Problem List Problems Medical Problems: (1) CRF (chronic renal failure) Status: Acute (2) Hyperkalemia Status: Acute (3) Left anterior shoulder pain Status: Acute (4) Weakness Status: Acute Current Medications Current Medications Current Medications Sodium Chloride 1,000 ml @ 1,000 mls/hr Q1H PRN IV hypotension; Start 07/09/20 at 15:10; Stop 07/09/20 at 21:09; Status DC Albumin Human 200 ml @ 200 mls/hr 1X PRN PRN IV Hypotension; Start 07/09/20 at 15:15; Stop 07/09/20 at 21:14; Status DC Sodium Chloride 1,000 ml @ 400 mls/hr Q2H30M PRN IV PATENCY; Start 07/09/20 at 15:10; Stop 07/10/20 at 03:09; Status DC Info (PHARMACY MONITORING -- do not chart) 1 each PRN DAILY PRN MC SEE COMMENTS; Start 07/09/20 at 15:15; Status Cancel Info (PHARMACY MONITORING -- do not chart) 1 each PRN DAILY PRN MC SEE COMMENTS; Start 07/09/20 at 15:15 Amlodipine Besylate (Norvasc) 5 mg DAILY PO Last administered on 07/10/20at 09:44; Start 07/10/20 at 09:00 Apixaban (Eliquis) 2.5 mg BID PO Last administered on 07/10/20 09:43; Start 07/10/20 at 00:00 Atorvastatin Calcium (Lipitor) 20 mg HS PO Last administered on 07/10/20at 00:58; Start 07/10/20 at 00:00 Buspirone HCl (Buspar) 5 mg TID PO Last administered on 07/10/20at 09:43; Start 07/10/20 at 00:00 Cetirizine HCl (ZyrTEC) 10 mg HS PO Last administered on 07/10/20at 00:59; Start 07/10/20 at 00:00 Divalproex Sodium (Depakote Er) 250 mg DAILY PO Last administered on 07/10/20 09:43; Start 07/10/20 at 09:00 Docusate Sodium (Colace) 100 mg PRN DAILY PRN PO CONSTIPATION; Start 07/09/20 at 23:30 Donepezil HCl (Aricept) 10 mg DAILY PO Last administered on 07/10/20at 09:45; Start 07/10/20 at 09:00 Ergocalciferol (Vitamin D2) 50,000 unit DAILY PO Last administered on 07/10/20 09:42; Start 07/10/20 at 09:00 Hydralazine HCl (Apresoline) 25 mg BID PO Last administered on 07/10/20 09:45; Start 07/10/20 at 00:00 Isosorbide Mononitrate (Imdur) 30 mg DAILY PO Last administered on 07/10/20at 09:42; Start 07/10/20 at 09:00 Levothyroxine Sodium (Synthroid) 175 mcg DAILY06 PO Last administered on 07/10/20at 06:10; Start 07/10/20 at 06:00 Loperamide HCl (Imodium) 2 mg PRN Q8HRS PRN PO DIARRHEA; Start 07/09/20 at 23:30 Metoprolol Succinate (Toprol Xl) 25 mg DAILY PO Last administered on 07/10/20at 09:43; Start 07/10/20 at 09:00 Potassium Chloride (Klor-Con) 10 meq DAILYWBKFT PO ; Start 07/10/20 at 08:00 Tramadol HCl (Ultram) 50 mg PRN Q8HRS PRN PO PAIN; Start 07/09/20 at 23:30 Amiodarone HCl (Cordarone) 100 mg DAILY PO Last administered on 07/10/20at 09:44; Start 07/10/20 at 09:00 Benzonatate (Tessalon Perle) 200 mg PRN TID PRN PO COUGH; Start 07/09/20 at 23:30 Calcium Acetate (Phoslo) 667 mg TIDWMEALS PO Last administered on 07/10/20at 09:43; Start 07/10/20 at 08:00 Non-Formulary Medication (Calcium Carbonate (Tums)) 500 mg HS PO ; Start 07/10/20 at 00:00; Stop 07/10/20 at 00:04; Status DC Glycerin/ Hypromellose/ Polyethylene (Artificial Tears) 1 drop BID OU Last administered on 07/10/20at 09:53; Start 07/10/20 at 09:00 Guaifenesin (Robitussin Dm) 10 ml PRN Q6HRS PRN PO cough; Start 07/09/20 at 23:30 Non-Formulary Medication (Hydrocortisone ) 1 jarvis BID TP ; Start 07/10/20 at 09:00; Status UNV Insulin Human Lispro (HumaLOG) 4 units TIDWMEALS SQ Last administered on 07/10/20at 09:58; Start 07/10/20 at 08:00 Non-Formulary Medication (Insulin Glargine,Hum.rec.anlog (Lantus Solostar)) 18 unit QHS SQ ; Start 07/10/20 at 21:00; Status UNV Zolpidem Tartrate (Ambien) 5 mg QHS PO ; Start 07/10/20 at 21:00 Multivitamins (Thera M Plus) 1 tab DAILY PO Last administered on 8/26/20at 09:44; Start 07/10/20 at 09:00 Non-Formulary Medication (Nystatin/ Triamcin (Nystatin-Triamcinolone Cream)) 1 jarvis PRN PRN TP REDNESS; Start 07/09/20 at 23:30; Status UNV Ondansetron HCl (Zofran Odt) 4 mg PRN Q6HRS PRN PO NAUSEA/VOMITING; Start 07/09/20 at 23:30 Quetiapine Fumarate (SEROquel) 50 mg BID PO Last administered on 07/10/20at 09:42; Start 07/10/20 at 00:00 Calcium Carbonate/ Glycine (Tums) 500 mg HS PO ; Start 07/10/20 at 00:04 Insulin Glargine (Lantus Syringe) 18 unit QHS SQ ; Start 07/10/20 at 21:00 Nystatin (Mycostatin) 1 jarvis PRN TID PRN TP REDNESS; Start 07/10/20 at 02:15 Triamcinolone Acetonide (Kenalog 0.1%) 1 jarvis PRN TID PRN TP REDNESS; Start 07/10/20 at 02:15 Insulin Human Lispro (HumaLOG) 300-35,0=4 units 351-40... PRN AFTMEALHC PRN SQ blood glucose; Start 07/10/20 at 05:45 Active Scripts Active Reported Imodium A-D (Loperamide HCl) 2 Mg Capsule 2 Mg PO PRN Q8HRS PRN Amiodarone Hcl 100 Mg Tablet 1 Tab PO DAILY 30 Days Klor-Con 10 (Potassium Chloride) 10 Meq Tablet.er 10 Meq PO DAILY Promethazine-Dm Syrup (D-Methorphan Hb/Prometh Hcl) 118 Ml Syrup 5 Ml PO PRN Q6HRS PRN 6 Days Metoprolol Succinate ( Xl ) (Metoprolol Succinate) 25 Mg Tab.er.24h 1 Tab PO DAILY Levothyroxine Sodium 175 Mcg Tablet 1 Tab PO DAILY Lantus Solostar (Insulin Glargine,Hum.rec.anlog) 100 Unit/1 Ml Insuln.pen 18 Unit SQ QHS Eliquis (Apixaban) 2.5 Mg Tablet 2.5 Mg PO BID Atorvastatin Calcium 20 Mg Tablet 20 Mg PO HS Thera Tears (Carboxymethylcellulose Sodium) 15 Ml Drops 1 Drop EACHEYE BID Benzonatate 200 Mg Capsule 200 Mg PO TID PRN Hydralazine Hcl 25 Mg Tablet 25 Mg PO BID Acetaminophen 500 Mg Tablet 500 Mg PO PRN Q6HRS PRN Trazodone Hcl 50 Mg Tablet 50 Mg PO PRN QHS Tums (Calcium Carbonate) 300 Mg Tab.chew 500 Mg PO HS Zyrtec (Cetirizine Hcl) 10 Mg Tablet 10 Mg PO HS Zofran (Ondansetron Hcl) 4 Mg Tablet 1 Tab PO PRN Q6HRS Amlodipine Besylate 5 Mg Tablet 5 Mg PO DAILY take 1 tab every Sun, Mon, Wed, Fri Tramadol Hcl 50 Mg Tablet 50 Mg PO Q8HRS PRN Melatonin 3 Mg Tablet 2 Tab PO QHS Hydrocortisone 59 Ml Lotion 1 Jarvis TP BID Colace (Docusate Sodium) 100 Mg Capsule 1 Cap PO PRN DAILY PRN Calcium Acetate 667 Mg Tablet 667 Mg PO TIDWMEALS Buspirone Hcl 5 Mg Tablet 1 Tab PO TID Seroquel (Quetiapine Fumarate) 50 Mg Tablet 50 Mg PO BID Nystatin-Triamcinolone Cream (Nystatin/Triamcin) 15 Gm Cream..g. 1 Jarvis TP PRN PRN Depakote Er (Divalproex Sodium) 250 Mg Tab.er.24h 250 Mg PO DAILY Novolog Flexpen (Insulin Aspart) 100 Unit/1 Ml Insuln.pen 4 Unit SQ TIDWMEALS Vitamin D2 (Ergocalciferol (Vitamin D2)) 50,000 Unit Capsule 50,000 Unit PO DAILY Donepezil Hcl 10 Mg Tablet 10 Mg PO DAILY Isosorbide Mononitrate Er (Isosorbide Mononitrate) 30 Mg Tab.er.24h 1 Tab PO DAILY Multivitamins (Multivitamin) 1 Each Tablet 1 Tab PO DAILY Allergies Allergies: Coded Allergies: amoxicillin (Verified Allergy, Intermediate, 05/13/18) clavulanic acid (Verified Allergy, Intermediate, 05/13/18) ROS General: YES: Fatigue, Malaise, Appetite PSYCHOLOGICAL ROS: YES: Anxiety, Depression Eyes: Yes Decreased vision ALLERGY AND IMMUNOLOGY: YES: Seasonal Allergies Respiratory: YES: Cough Gastrointestinal: Yes Constipation Genitourinary: YES Other (ANURIA) Musculoskeletal: Yes Muscular Weakness Neurological: Yes Behavorial Changes Skin: Yes Dry Skin Physical Exam General: Alert, Oriented X3, Cooperative, No acute distress HEENT: Atraumatic, PERRLA Lungs: Clear to auscultation Heart: Regular rate, Normal S1, Normal S2 Abdomen: Normal bowel sounds, Soft, No tenderness Extremities: No cyanosis Skin: No breakdown Neuro: Normal speech, Sensation intact Psych/Mental Status: Mental status NL, Mood NL MUSCULOSKELETAL: No joint tenderness, No deformity, No swelling Vitals VITALS Vital Signs Date Time Temp Pulse Resp B/P (MAP) Pulse Ox O2 Delivery O2 Flow Rate FiO2 07/10/20 14:56 97.8 51 16 142/51 (81) 100 Room Air 97.8 Labs Labs Laboratory Tests Test 07/09/20 13:45 07/09/20 18:52 07/10/20 07:21 07/10/20 11:34 White Blood Count 5.2 x10^3/uL (4.0-11.0) Red Blood Count 3.67 x10^6/uL (3.50-5.40) Hemoglobin 12.3 g/dL (12.0-15.5) Hematocrit 35.6 % (36.0-47.0) Mean Corpuscular Volume 97 fL (79-100) Mean Corpuscular Hemoglobin 33 pg (25-35) Mean Corpuscular Hemoglobin Concent 35 g/dL (31-37) Red Cell Distribution Width 19.1 % (11.5-14.5) Platelet Count 128 x10^3/uL (140-400) Neutrophils (%) (Auto) 63 % (31-73) Lymphocytes (%) (Auto) 24 % (24-48) Monocytes (%) (Auto) 7 % (0-9) Eosinophils (%) (Auto) 5 % (0-3) Basophils (%) (Auto) 1 % (0-3) Neutrophils # (Auto) 3.3 x10^3/uL (1.8-7.7) Lymphocytes # (Auto) 1.3 x10^3/uL (1.0-4.8) Monocytes # (Auto) 0.4 x10^3/uL (0.0-1.1) Eosinophils # (Auto) 0.2 x10^3/uL (0.0-0.7) Basophils # (Auto) 0.1 x10^3/uL (0.0-0.2) Prothrombin Time 14.1 SEC (11.7-14.0) Prothromb Time International Ratio 1.1 (0.8-1.1) Activated Partial Thromboplast Time 32 SEC (24-38) Sodium Level 139 mmol/L (136-145) Potassium Level 6.4 mmol/L (3.5-5.1) Chloride Level 102 mmol/L (98-107) Carbon Dioxide Level 26 mmol/L (21-32) Anion Gap 11 (6-14) Blood Urea Nitrogen 108 mg/dL (7-20) Creatinine 11.5 mg/dL (0.6-1.0) Estimated GFR (Cockcroft-Gault) 3.2 BUN/Creatinine Ratio 9 (6-20) Glucose Level 110 mg/dL (70-99) Calcium Level 8.2 mg/dL (8.5-10.1) Magnesium Level 2.5 mg/dL (1.8-2.4) Total Bilirubin 0.4 mg/dL (0.2-1.0) Aspartate Amino Transf (AST/SGOT) 19 U/L (15-37) Alanine Aminotransferase (ALT/SGPT) 10 U/L (14-59) Alkaline Phosphatase 121 U/L (46-116) CT-Xkc-I-Type Natriuretic Peptide 49295 pg/mL (0-124) Total Protein 6.9 g/dL (6.4-8.2) Albumin 3.2 g/dL (3.4-5.0) Albumin/Globulin Ratio 0.9 (1.0-1.7) Lipase 143 U/L (73-393) Glucose (Fingerstick) 95 mg/dL (70-99) 121 mg/dL (70-99) 111 mg/dL (70-99) Laboratory Tests Test 07/09/20 18:52 07/10/20 07:21 07/10/20 11:34 Glucose (Fingerstick) 95 mg/dL (70-99) 121 mg/dL (70-99) 111 mg/dL (70-99) Assessment/Plan Assessment/Plan IMP HYPERKALEMIA ESKD ANEMIA-CONTROLLED HTN HX BIPOLAR NON COMPLIANCE PLAN HAVE D/W HER NH TO ENSURE SHE IS GETTING HER PSYCH MEDS APPARENTLY THEY HAVE ARRANGED PSYCH VISIT EMERGENT HD AND UF TO DW ENC COMPLIANCE [place] WHEN NEEDED STOP K SUPPLEMENTS SHE IS AGREEABLE TO GO BACK TO HER HD UNIT WHEN DISCHARGED CARMEN PAGE MD Jul 10, 2020 15:06
[2020-07-10 19:00] VITALS: BP 133/50
[2020-07-10] MEDS ORDERED: NON FORMULARY ITEM (Insulin Glargine,Hum.rec.anlog (Lantus Solostar) 18 UNIT) SQ SCH (21:00)
[2020-07-10] MEDS ORDERED: INSULIN GLARGINE SYRINGE. SQ SCH (21:00)
[2020-07-10] MEDS ORDERED: ZOLPIDEM 5 MG TABLET. PO SCH (21:00)
[2020-07-10 23:00] VITALS: BP 101/45
[2020-07-11 03:00] VITALS: BP 97/44
[2020-07-11 05:34] LABS: CALCIUM 8.1 mg/dL (8.5-10.1); CREATININE 7.9 mg/dL (0.6-1.0); POTASSIUM 4.4 mmol/L (3.5-5.1)
[2020-07-11] MEDS: LEVOTHYROXINE 175 MCG TABLET PO SCH (05:48)
[2020-07-11 07:00] VITALS: BP 137/54
[2020-07-11] MEDS: INSULIN LISPRO 300 UNITS/3 ML VIAL. SQ SCH ×3 (07:50→17:00)
--- NOTE | 2020-07-11 08:48 | PDOC ---
DATE OF SERVICE: DATE: 07/11/20 TIME: 08:46 GENERAL General: vss and afebrile. awake and alert. pledging to never miss dialysis again as feels much better today. chest clear, heart regular, abdomen benign. repeat dialysis today with potential dc later today if ok with renal. VITAL SIGNS/I&O Vital Signs/I&O: Vital Signs Date Time Temp Pulse Resp B/P (MAP) Pulse Ox O2 Delivery O2 Flow Rate FiO2 07/11/20 03:00 98.0 54 18 97/44 (61) 100 Room Air 98.0 I & O 07/10/20 07/10/20 07/11/20 15:00 23:00 07:00 Intake Total 300 ml 400 ml 100 ml Balance 300 ml 400 ml 100 ml ALLERGIES Allergies: Allergies Coded Allergies Type Severity Reaction Last Updated Verified amoxicillin Allergy Intermediate 05/13/18 Yes clavulanic acid Allergy Intermediate 05/13/18 Yes MEDS Medications: Current Medications Medications (Trade) Dose Ordered Sig/Angeles Route PRN Reason Start Time Stop Time Status Last Admin Dose Admin Amlodipine Besylate (Norvasc) 5 mg DAILY PO 07/10/20 09:00 07/10/20 09:44 Divalproex Sodium (Depakote Er) 250 mg DAILY PO 07/10/20 09:00 07/10/20 09:43 Donepezil HCl (Aricept) 10 mg DAILY PO 07/10/20 09:00 07/10/20 09:45 Ergocalciferol (Vitamin D2) 50,000 unit DAILY PO 07/10/20 09:00 07/10/20 09:42 Isosorbide Mononitrate (Imdur) 30 mg DAILY PO 07/10/20 09:00 07/10/20 09:42 Metoprolol Succinate (Toprol Xl) 25 mg DAILY PO 07/10/20 09:00 07/10/20 09:43 Amiodarone HCl (Cordarone) 100 mg DAILY PO 07/10/20 09:00 07/10/20 09:44 Glycerin/ Hypromellose/ Polyethylene (Artificial Tears) 1 drop BID OU 07/10/20 09:00 07/10/20 20:58 Zolpidem Tartrate (Ambien) 5 mg QHS PO 07/10/20 21:00 07/10/20 20:58 Multivitamins (Thera M Plus) 1 tab DAILY PO 07/10/20 09:00 07/10/20 09:44 Insulin Glargine (Lantus Syringe) 18 unit QHS SQ 07/10/20 21:00 07/10/20 21:06 LAB Lab: Laboratory Tests Test 07/10/20 11:34 07/10/20 16:51 07/10/20 20:06 07/11/20 04:30 Glucose (Fingerstick) 111 mg/dL (70-99) H 140 mg/dL (70-99) H 174 mg/dL (70-99) H Sodium Level 136 mmol/L (136-145) Potassium Level 4.4 mmol/L (3.5-5.1) Chloride Level 98 mmol/L (98-107) Carbon Dioxide Level 29 mmol/L (21-32) Anion Gap 9 (6-14) Blood Urea Nitrogen 61 mg/dL (7-20) H Creatinine 7.9 mg/dL (0.6-1.0) H Estimated GFR (Cockcroft-Gault) 5.0 Glucose Level 56 mg/dL (70-99) L Calcium Level 8.1 mg/dL (8.5-10.1) L Test 07/11/20 07:24 Glucose (Fingerstick) 59 mg/dL (70-99) L Laboratory Tests 07/11/20 04:30 HOUSTON SILVER MD Jul 11, 2020 08:48
[2020-07-11] MEDS: APIXABAN 2.5 MG TABLET. PO SCH (09:11)
[2020-07-11] MEDS: busPIRone 5 MG TABLET. PO SCH ×2 (09:11→14:11)
[2020-07-11] MEDS: ISOSORBIDE MONONITRATE ER 30 MG TAB.ER.24H PO SCH (09:12)
[2020-07-11] MEDS: AMIODARONE HCL 200 MG TABLET. PO SCH (09:12)
[2020-07-11] MEDS: MULTIVITAMIN with MINERAL TABLET. PO SCH (09:12)
[2020-07-11] MEDS: ERGOCALCIFEROL (VITAMIN D2) 50,000 UNIT CAPSULE. PO SCH (09:12)
[2020-07-11] MEDS: amLODIPine BESYLATE 5 MG TABLET PO SCH (09:13)
[2020-07-11] MEDS: QUEtiapine 25 MG TABLET. PO SCH (09:13)
[2020-07-11] MEDS: DONEPEZIL HCL 10 MG TABLET. PO SCH (09:13)
[2020-07-11] MEDS: DIVALPROEX EXTENDED RELEASE 250 MG TAB.ER.24H. PO SCH (09:13)
[2020-07-11] MEDS: CALCIUM ACETATE 667 MG CAPSULE PO SCH ×3 (09:13→18:14)
[2020-07-11] MEDS: hydrALAZINE 25 MG TABLET PO SCH (09:13)
[2020-07-11] MEDS: POLYVINYL ALCOHOL 1.4% OPHTH SOLUTION 15ML BOTTLE. OU SCH (09:14)
[2020-07-11] MEDS: METOPROLOL SUCC 24HR ER 25 MG TAB.ER.24H. PO SCH (09:14)
--- NOTE | 2020-07-11 10:30 | NUR ---
SW following. Discussed with RN, possible discharge back to [facility] later today, per Dr. Appl. BARRY faxed updates to [facility], notified of possible discharge. ASHA will continue to follow. Addendum: 07/11/20 at 1556 by EDUARDO BARRY Discharge order entered. RN to fax paper med rec to [facility] after completed. [facility] arranged transportation for [id number] (after pt gets back from dialysis). No further SW needs.
[2020-07-11] MEDS ORDERED: IV NORMAL SALINE 1000ML BAG 1,000 ML IV PRN ×2 (10:53)
[2020-07-11 11:00] VITALS: BP 149/50
[2020-07-11] MEDS ORDERED: diphenhydrAMINE 50 MG/ML VIAL IV PRN ×2 (11:00)
[2020-07-11] MEDS ORDERED: ACETAMINOPHEN 500 MG TABLET PO PRN (11:00)
[2020-07-11] MEDS ORDERED: ALBUMIN HUMAN 25% 200 ML IV PRN (11:00)
[2020-07-11] MEDS ORDERED: DIALYSIS PATIENT. MC PRN (11:00)
--- NOTE | 2020-07-11 11:52 | PDOC ---
Renal-Progress Notes Subjective Notes Notes FEELING BETTER History of Present Illness Hx of present illness STABLE Vitals Vitals Vital Signs Date Time Temp Pulse Resp B/P (MAP) Pulse Ox O2 Delivery O2 Flow Rate FiO2 07/11/20 09:14 60 137/54 07/11/20 08:00 Room Air 07/11/20 07:00 98.7 16 100 98.7 Weight Weight [ ] I.O. Intake and Output Intake and Output 07/11/20 07:00 Intake Total 800 ml Balance 800 ml Intake Oral 800 ml # Bowel Movements 1 Labs Labs Laboratory Tests Test 07/10/20 16:51 07/10/20 20:06 07/11/20 04:30 07/11/20 07:24 Glucose (Fingerstick) 140 mg/dL (70-99) 174 mg/dL (70-99) 59 mg/dL (70-99) Sodium Level 136 mmol/L (136-145) Potassium Level 4.4 mmol/L (3.5-5.1) Chloride Level 98 mmol/L (98-107) Carbon Dioxide Level 29 mmol/L (21-32) Anion Gap 9 (6-14) Blood Urea Nitrogen 61 mg/dL (7-20) Creatinine 7.9 mg/dL (0.6-1.0) Estimated GFR (Cockcroft-Gault) 5.0 Glucose Level 56 mg/dL (70-99) Calcium Level 8.1 mg/dL (8.5-10.1) Test 07/11/20 11:38 Glucose (Fingerstick) 185 mg/dL (70-99) Review of Systems Constitutional: yes: alert, oriented Ears/Nose/Throat: Yes: no symptom reported Eyes: Yes: no symptom reported Pulmonary: Yes no symptom reported Cardiovascular: Yes no symptom reported Gastrointestional: Yes: no symptom reported Musculoskeletal: Yes: no symptom reported Skin: Yes no symptom reported Endocrine: Yes: no symptom reported Physical Exam General Appearance: no apparent distress Skin: warm Respiratory: bilateral CTA Heart: S1S2 Abdomen: soft, bowel sounds present Genitourinary: bladder flat Extremities: pulses present, no edema, atrophy Neurology: alert, oriented Assessment Assessment IMP HYPERKALEMIA-RESOLVED ESKD ANEMIA-CONTROLLED HTN HX BIPOLAR NON COMPLIANCE PLAN HD TODAY UF TO DW WILL FOLLOW OK TO D/C FROM [facility]NAL [facility] CARMEN PAGE MD Jul 11, 2020 11:51
[2020-07-11] MEDS ORDERED: ANTI-COAG MONITOR BY PHARMACY. MC PRN (12:30)
--- NOTE | 2020-07-11 18:59 | NUR ---
Discharge Note: HECTOR GRESHAM Discharge instructions and discharge home medications reviewed with Other facility and a copy given. All questions have been answered and understanding verbalized. The following instructions and handouts were given: Packet with instructions and medication sent with patient and faxed to [facility]. Discontinued lines and drains: Iv had been removed. Patient discharged to [facility], report given to Maritza Navarro.
--- NOTE | 2020-07-13 14:10 | DS ---
DATE OF DISCHARGE: 07/11/2020 PRIMARY DIAGNOSIS: Acute on chronic renal failure due to missing dialysis. ADDITIONAL DIAGNOSES: 1. Volume overload. 2. Hyperkalemia. 3. Diabetes. 4. Bipolar depression. 5. Osteoarthritis. 6. Hypertension. 7. Hypothyroidism. CHIEF COMPLAINT AND HISTORY OF PRESENT ILLNESS: This is a 75-year-old female admitted with symptoms of renal failure due to missing 2 dialysis because they were "mean" to her at dialysis which is obviously favored by her bipolar depression. SUMMARY OF STAY: The patient was admitted. Renal was consulted. Dialysis was done. Her electrolytes and other abnormalities were resolved. She felt back to her baseline and was felt ready for discharge back to the custodial, where she resides, with promises that she would never miss dialysis again as she knows that without it within a couple of week period of time, she would no longer be alive. DISPOSITION: The patient is discharged back to [facility] on her prehospital diet. ACTIVITY: As tolerated. DISCHARGE INSTRUCTIONS: Resume regular prehospital medications and we will see her there in followup. [place] SILVER MD DR: KARAN/arlette JOB#: [id number] / [id number]
== END 2020-07-11 18:45 | DRG 640 ==
LOC: ER 13:17 → ED HOLD 16:13 → 5 NORTH 17:51
PROVIDERS: ADMIT Family Medicine; ATTEND Family Medicine
PROC: 5A1D70Z Performance of Urinary Filtration, Intermittent, Less than 6 Hours Per Day (ICD-10-PCS; principal; 2020-07-09)
PROC: 5A1D70Z Performance of Urinary Filtration, Intermittent, Less than 6 Hours Per Day (ICD-10-PCS; 2020-07-11)
DX: E87.5 Hyperkalemia (principal); N18.6 End stage renal disease; I13.2 Hypertensive heart and chronic kidney disease with heart failure and with stage 5 chronic kidney disease, or end stage renal disease; E21.3 Hyperparathyroidism, unspecified; I50.9 Heart failure, unspecified; G30.9 Alzheimer's disease, unspecified; E78.00 Pure hypercholesterolemia, unspecified; E11.22 Type 2 diabetes mellitus with diabetic chronic kidney disease; E03.9 Hypothyroidism, unspecified; E11.42 Type 2 diabetes mellitus with diabetic polyneuropathy; F31.9 Bipolar disorder, unspecified; M25.512 Pain in left shoulder; I27.20 Pulmonary hypertension, unspecified; D63.8 Anemia in other chronic diseases classified elsewhere; M19.90 Unspecified osteoarthritis, unspecified site; K21.9 Gastro-esophageal reflux disease without esophagitis; F41.9 Anxiety disorder, unspecified; Z90.710 Acquired absence of both cervix and uterus; Z79.899 Other long term (current) drug therapy; Z87.891 Personal history of nicotine dependence; Z87.11 Personal history of peptic ulcer disease; Z82.0 Family history of epilepsy and other diseases of the nervous system; Z91.19 Patient's noncompliance with other medical treatment and regimen
CPT/HCPCS: 36415; 71045; 73030; 80048; 80053; 82962; 83690; 83735; 83880; 85025; 85610; 85730; 93005; 99285; J1815; G0378

== ENCOUNTER → 2020-08-05 | Outpatient (CLI) | payer MEDICARE, OTHER ==
[2020-07-11 11:00] VITALS: BP 149/50
[~2020-08-05] MED LIST changes: +AMIO100T4 PO; +APIX2.5T PO; +ATOR20TA58 PO; +DEXTROSE 50% 25 GM / 50ML DISP.SYRIN. IV ONE; +LEVO175T5 PO; +LOPE-101 PO; +METO-239 PO; +POTA10TA12 PO; +PROM118S10 PO; +REGADENOSON 0.4 MG/5 ML DISP.SYRIN. IV ONE
--- NOTE | 2020-08-05 14:23 | RAD ---
MR#: [id number] Date of Study: 08/05/2020 Ordering Physician: FLORI DOMINGO, Referring Physician: JARROD ROMERO Tech: RT Erasto (R) (N) APPROVED REPORT Test Type: Pharmacological Stress Nurse/Tech: Kristine Joy RN Test Indications: chest pain Cardiac History: HTN, Pacemaker, kidney disease, dialysis, DM Medications: See Electronic Medical Record Medical History: See Electronic Medical Record Resting ECG: SR Resting Heart Rate: 54 bpm Resting Blood Pressure: 153/41mmHg Pretest Chest Pain: None Nurse/Tech Notes Lungs CTA, S1S2. Pt complaining of feeling like her blood sugar is low. Blood sugar 60. Dextrose 50 0 .5 amps given per protocol. Pt blood sugar 263 on recheck Consent: The procedure was explained to the patient in lay terms. Informed consent was witnessed. Prince eout was entered into iwoca. History and Stress Test performed by DANIELLE Mitchell, ARRT (R) (N) Pharm. Details Pharmacologic stress testing was performed using 0.4mg per 5ml of regadenoson given intravenously ove r 7-10 seconds. Stress Symptoms No chest pain or symptoms. POST EXERCISE Reason for Termination: Infusion complete Max HR: 76 bpm Max Blood Pressure: 127/38mmHg Blood Pressure response to exercise: Normal blood pressure response during stress. Heart Rate response to exercise: normal response Chest Pain: No. Arrhythmia: No. ST Change: No. INTERPRETATION Stress EKG Conclusion: The resting EKG shows a sinus rhythm, borderline LVH and mild nonspecific ST-T wave changes. The stress EKG shows no significant changes from baseline. No EKG evidence of stress-induced ischemia. Imaging Protocol IMAGE PROTOCOL: Rest Tc-99m/stress Tc-99m 1 day Rest: Stress: Viability: Radiopharm.Tc99m JzyiqvgnuDo20b Sestamibi Skbp89oDc 32mCi Duration 15min. 10min. Img Date 08/05/2020 08/05/2020 Inj-Img Zsrw52yed. 60min. Rest Admin Site:IV - Right ForearmAdministrator:RT Erasto (R)(N) Stress Admin Site: IV - Right ForearmAdministrator: DANIELLE Mitchlel, ARRT (R)(N) STRESS DATA End Diast. Vol.78.0mlAv. Heart Rate59.0bpm End Syst. Vol.20.0mlCO Index BSA0.0L/min Myocardial Hnip792.0gEject. Nxvygmho90.0% Stress Rates Pk. Fill Rate2.20EDV/secLVtime Pk. Fill 296.58msec Pk. Empty Rate3.37ESV/secLVtime Pk. Wzmgb740.09msec 11/17 Pk. Fill0.92EDV/sec Stress Scores Regional WT1.00Summed WT5.00 Regional WM0.00Summed WM2.00 LV Perfusion The stress scans show no significant defects. The rest scans show no significant defects. Nuclear imaging shows no reversible ischemia or infarct. Wall Motion Normal left ventricular systolic function with no regional wall motion abnormalities and an ejection fraction of greater than 70%. LV Perf. Quant 17 Seg. SSS0.00 17 Seg. SRS0.00 17 Seg. SDS0.00 Stress Defect Extent (% LAD)0.00Rest Defect Extent (% LAD)0.00Rev. Defect Extent (% LAD)0.00 Stress Defect Extent (% LCX) 0.00Rest Defect Extent (% LCX)0.00Rev. Defect Extent (% LCX)0.00 Stress Defect Extent (% RCA)0.00Rest Defect Extent (% RCA)0.00Rev. Defect Extent (% RCA)0.00 Stress Defect Extent (% VALENTINA)0.00Rest Defect Extent (% VAL[place])0.00Rev. Defect Extent (% VALENT[place])0.00 Conclusion 1. No EKG evidence of stress-induced ischemia. 2. Nuclear imaging shows no reversible ischemia or infarct. 3. Normal LV systolic function with no regional wall motion abnormalities and an ejection fraction of greater than 70%. 4. Low risk Lexiscan nuclear stress test. Signed by : Andrey Wilcox MD Electronically Approved : 08/05/2020 14:23:10
== END | disposition home or self-care (01) ==
LOC: NM 10:59
PROVIDERS: ATTEND Internal Medicine Cardiovascular Disease
DX: I10 Essential (primary) hypertension (principal); Z95.0 Presence of cardiac pacemaker
CPT/HCPCS: 78452; 82962; 93017; A9500; J2785

== ENCOUNTER → 2021-01-15 | Outpatient (CLI) | payer MEDICARE, OTHER ==
[~2021-01-15] MED LIST changes: +AMLO-186 PO; +AMLO-187 PO; -AMLO10TA8 PO; -AMLO5TAB10 PO; -DEXTROSE 50% 25 GM / 50ML DISP.SYRIN. IV ONE; -ISOS30TA4 PO; +ISOS30TA68 PO; -LISI-334 PO; -LISI-338 PO; +LISI-517 PO; +LISI10TA16 PO; -LISI10TA2 PO; +LISI20TA18 PO; -REGADENOSON 0.4 MG/5 ML DISP.SYRIN. IV ONE; -RISP1TAB3 PO; +RISP1TAB88 PO; -RISP2TAB3 PO; +RISP2TAB78 PO
--- NOTE | 2021-01-16 09:52 | CARD ---
MR#: [id number] Date of Study: 01/15/2021 Ordering Physician: FLORI DOMINGO, Referring Physician: FLORI DOMINGO, Tech: Mandi Snider MAR APPROVED REPORT EXAM: Two-dimensional and M-mode echocardiogram with Doppler and color Doppler. Other Information Quality : Fair INDICATION Chest Pain 2D DIMENSIONS Left Atrium(2D)3.8 (1.6-4.0cm)IVSd0.8 (0.7-1.1cm) Aortic Root(2D)2.7 (2.0-3.7cm)LVDd3.7 (3.9-5.9cm) LVOT Diameter1.9 (1.8-2.4cm)PWd0.8 (0.7-1.1cm) LVDs2.1 (2.5-4.0cm)FS (%) 30.0 % SV44.6 mlLVEF(%)60.0 (>50%) M-Mode DIMENSIONS Aortic Cusp Exc1.17 (1.5-2.0cm) Aortic Valve AoV Peak José Luis.272.6cm/sAoV VTI62.6cm AO Peak GR.29.7mmHgLVOT Peak José Luis.98.7cm/s LVOT VTI 24.71cmAO Mean GR.17mmHg BETO (VMAX)1.63ba2PGQ (VTI)1.17cm2 Mitral Valve MV E Rgbfudhm81.3cm/sMV DECEL YCCL557ry MV A Azwjlftp54.5cm/sMV SNV99li E/A Ratio0.7MVA (PHT)2.62cm2 TDI E/Lateral E'11.2E/Medial E'16.2 Tricuspid Valve TR P. Ylucmwcc558ww/sRAP EZJMKPJF4gyBp TR Peak Gr.16avTtYSII45ggCe Pulmonary Vein S1 Wrllpkoo50.3cm/sD2 Mztcxvzu13.2cm/s LEFT VENTRICLE The left ventricle is normal size. There is normal left ventricular wall thickness. The left ventricu lar systolic function is normal. The Ejection Fraction is 60-65%. There is normal LV segmental wall m otion. Transmitral Doppler flow pattern is Grade I-abnormal relaxation pattern. RIGHT VENTRICLE The right ventricle is normal size. The right ventricular systolic function is normal. ATRIA The left atrium size is normal. The right atrium size is normal. The interatrial septum is intact wit h no evidence for an atrial septal defect or patent foramen ovale as noted on 2-D or Doppler imaging. AORTIC VALVE The aortic valve is calcified and displays decreased opening. Doppler and Color Flow revealed no sign ificant aortic regurgitation. Calculated aortic valve area is 1.2 cm2 with maximum pressure gradient of 32 mmHg and mean pressure gradient of 21 mmHg. Doppler and color-flow analysis revealed moderate a ortic stenosis. MITRAL VALVE The mitral valve is calcified but opens well. Mitral annular calcification is mild. There is no evide nce of mitral valve prolapse. There is no mitral valve stenosis. Doppler and Color-flow revealed trac e mitral regurgitation. TRICUSPID VALVE The tricuspid valve is normal in structure and function. Doppler and Color Flow revealed trace tricus pid regurgitation. The PA pressure was estimated at 25 mmHg. There is no tricuspid valve stenosis. PULMONIC VALVE The pulmonic valve is not well visualized. Doppler and Color Flow revealed trace pulmonic valvular re gurgitation. There is no pulmonic valvular stenosis. GREAT VESSELS The aortic root is normal in size. The ascending aorta is normal in size. The IVC is normal in size a nd collapses >50% with inspiration. PERICARDIAL EFFUSION There is no evidence of significant pericardial effusion. Critical Notification Critical Value: No <Conclusion> The left ventricular systolic function is normal. The Ejection Fraction is 60-65%. There is normal LV segmental wall motion. Transmitral Doppler flow pattern is Grade I-abnormal relaxation pattern. Moderate aortic stenosis. Trace mitral regurgitation. Trace tricuspid regurgitation. The PA pressure was estimated at 25 mmHg. There is no evidence of significant pericardial effusion. Signed by : Flori Domingo, Electronically Approved : 01/16/2021 09:51:51
== END ==
LOC: ECHO 14:46
PROVIDERS: ATTEND Internal Medicine Cardiovascular Disease
DX: I08.0 Rheumatic disorders of both mitral and aortic valves (principal)
CPT/HCPCS: 93306

== ENCOUNTER 2021-02-24 21:06 | Emergency (ER) | payer MEDICARE, OTHER ==
[~2021-02-24] VITALS: Ht 154.9 cm; Wt 68.2 kg
--- NOTE | 2021-02-24 22:27 | PHYS DOC ---
Past Medical History Past Medical History: Anemia, Anxiety, Arthritis, Bipolar, CHF, Dementia, Depression, Diabetes-Type II, GERD, High Cholesterol, Hypertension, Hypothyroid, Renal Failure Additional Past Medical Histor: major depressive disorder, Sick sinus synd, alzheimer's, Past Surgical History: Hysterectomy Additional Past Surgical Histo: DIALYSIS SHUNT/FISTULA LEFT SIDE, pacemaker Smoking Status: Never Smoker Alcohol Use: None Drug Use: None General Adult EDM: Chief Complaint: ABDOMINAL PAIN HPI: HPI: Patient is a 76 year old female with a past medical history of renal failure diabetes presents to the ED with chief complaint of abdominal pain. Onset was 3 days ago. Location is diffuse lower, duration is constant, character is described as sharp. Associated symptoms are vomiting, diarrhea. Patient describes the vomiting as watery and nonbloody. Diarrhea is described as watery and brown. Patient denies melena, hematochezia, chest pain, shortness of breath, fever. Patient arrived via ambulance from a alf. Pain in her abdomen is rated as a 10 out of 10. Patient denies history of diverticulitis Review of Systems: Review of Systems: Constitutional: Denies fever or chills Eyes: Denies redness or eye pain HENT: Denies nasal congestion or sore throat Respiratory: Denies cough or shortness of breath Cardiovascular: Denies chest pain or palpitations GI: Reports abdominal pain lower, vomiting, diarrhea. Denies blood in stool. : Denies dysuria or hematuria Musculoskeletal: Denies back pain or joint pain Integument: Denies rash or skin lesions Neurologic: Denies headache, focal weakness or sensory changes Complete systems were reviewed and found to be within normal limits, except as documented in this note. Heart Score: C/O Chest Pain: N/A Allergies: Allergies: Allergies Coded Allergies Type Severity Reaction Last Updated Verified amoxicillin Allergy Intermediate 05/13/18 Yes clavulanic acid Allergy Intermediate 05/13/18 Yes Physical Exam: PE: Constitutional: Well developed, well nourished, no acute distress, non-toxic appearance HENT: Normocephalic, atraumatic Eyes: PERRL, EOMI, conjunctiva normal, no discharge Neck: Normal range of motion, no tenderness, supple Lungs & Thorax: No respiratory distress, equal chest rise and fall Abdomen: Soft, mild tenderness to palpation of the epigastric region. No guarding or rebound. Skin: Warm, dry, no erythema, no rash Back: No tenderness, no CVA tenderness Extremities: No tenderness, ROM intact, no edema Neurologic: Alert and oriented X 3, normal motor function, normal sensory function, no focal deficits noted Psychologic: Affect normal, judgment normal Current Patient Data: Vital Signs: Vital Signs Date Time Temp Pulse Resp B/P (MAP) Pulse Ox O2 Delivery O2 Flow Rate FiO2 02/24/21 21:10 99.6 62 20 125/59 (81) 99 Room Air 99.6 EKG: EKG: @2238 Sinus bradycardia at 58bpm, NO ST elevation, QRS 84ms, QT/QTc 464/459ms Radiology/Procedures: Radiology/Procedures: [] Impression: PROCEDURE: CT ABDOMEN PELVIS WO CONTRAST CT SCAN OF THE ABDOMEN AND PELVIS WITH IV CONTRAST. History: Reason: Abdomianl pain, N/V/D / Spl. Instructions: / History: Comparison:None. Procedure: Contiguous axial images of the abdomen and pelvis were performed after the a dministration of 75 cc of Isovue 370 IV contrast. Oral contrast: No. Findings: The appendix is normal. The gallbladder is collapsed and likely normal. Degenerative changes the lumbar spine results in multilevel marked central and neuroforaminal stenosis. Liver: Unremarkable Spleen: Unremarkable Pancreas: Unremarkable Adrenal Glands: Unremarkable Kidneys: Unremarkable There is no mass or lymphadenopathy. There is no free air. There is no free fluid. The urinary bladder appears normal. Impression: No acute findings. End impression PQRS Compliance Statement: One or more of the following individualized dose reduction techniques were utilized for this examination: 1. Automated exposure control 2. Adjustment of the mA and/or kV according to patient size 3. Use of iterative reconstruction technique the Electronically signed by: Ra Zabala III, MD (02/24/2021 11:40 PM) [facility] Course & Med Decision Making: Course & Med Decision Making Pertinent Labs and Imaging studies reviewed. (See chart for details) Patient is a 76-year-old female past medical history diabetes, hypertension, kidney disease requiring dialysis who presents to the ED with 3 days of abdominal pain, vomiting, and diarrhea. She denies fever, abdominal trauma. She has past surgical history of hysterectomy but no other abdominal surgeries. Will give fluids to replace GI losses, check labs and CT abdomen to assess for abdominal and potentially surgical pathologies. CT and labs unremarkable and do not indicate any emergent pathology. Patient stable for discharge with outpatient follow-up with PCP. Discussed findings and plan with patient, who acknowledges understanding and agreement. Ulysses Disclaimer: Ulysses Disclaimer: This electronic medical record was generated, in whole or in part, using a voice recognition dictation system. Departure Departure Impression: Primary Impression: Abdominal pain Qualified Codes: R10.9 - Unspecified abdominal pain Additional Impression: Nausea vomiting and diarrhea Disposition: HOME / SELF CARE / HOMELESS Condition: STABLE Referrals: HOUSTON SILVER MD (PCP) DALJIT MCCARTNEY MD Patient Instructions: Abdominal Pain (Nonspecific), Clear Liquid Diet, Kwrj-er-Rzkw, Diarrhea, Fxea-tm-Stxq, Diet for Diarrhea, Adult, Nausea and Vomiting, Fhnb-mp-Fluh Scripts Hyoscyamine Sulfate (LEVSIN-SL) 0.125 Mg Tab.subl 0.125 MG SL Q4-6HRS PRN for PAIN, #14 TAB Prov: DOMINGO SO DO 02/25/21 Famotidine (PEPCID) 20 Mg Tablet 20 MG PO BID, #14 TAB Prov: DOMINGO SO DO 02/25/21 Ondansetron (ONDANSETRON ODT) 4 Mg Tab.rapdis 1 TAB PO PRN Q6-8HRS PRN for NAUSEA, #16 TAB Prov: DOMINGO SO DO 02/25/21 DOMINGO SO DO Feb 24, 2021 22:27
[2021-02-24] MEDS ORDERED: FAMOTIDINE 20 MG/2 ML VIAL IVP ONE (23:00)
[2021-02-24] MEDS ORDERED: ONDANSETRON PF 4 MG/2 ML VIAL. IVP ONE (23:00)
[2021-02-24] MEDS ORDERED: IV NORMAL SALINE 500ML BAG 500 ML IV ONE (23:00)
--- NOTE | 2021-02-24 23:40 | EKG ---
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
--- NOTE | 2021-02-24 23:42 | RAD ---
CT SCAN OF THE ABDOMEN AND PELVIS WITH IV CONTRAST. History: Reason: Abdomianl pain, N/V/D / Spl. Instructions: / History: Comparison:None. Procedure: Contiguous axial images of the abdomen and pelvis were performed after the administration of 75 cc o f Isovue 370 IV contrast. Oral contrast: No. Findings: The appendix is normal. The gallbladder is collapsed and likely normal. Degenerative changes the lumbar spine results in multilevel marked central and neuroforaminal stenosi s. Liver: Unremarkable Spleen: Unremarkable Pancreas: Unremarkable Adrenal Glands: Unremarkable Kidneys: Unremarkable There is no mass or lymphadenopathy. There is no free air. There is no free fluid. The urinary bladder appears normal. Impression: No acute findings. End impression PQRS Compliance Statement: One or more of the following individualized dose reduction techniques were utilized for this examinat ion: 1. Automated exposure control 2. Adjustment of the mA and/or kV according to patient size 3. Use of iterative reconstruction technique the Electronically signed by: Ra Zabala III, MD (02/24/2021 11:40 PM) [facility]
[2021-02-25 01:14] LABS: BASO % 1 % (0-3); EOS # 0.2 x10^3/uL (0.0-0.7); EOS % 4 % (0-3); HEMOGLOBIN 9.7 g/dL (12.0-15.5); LYMPH # 1.8 x10^3/uL (1.0-4.8); LYMPH % 32 % (24-48); MEAN CORPUSCULAR HEMOGLOBIN 34 pg (25-35); MEAN CORPUSCULAR HGB CONC 34 g/dL (31-37); MEAN CORPUSCULAR VOLUME 101 fL (79-100); MONO # 0.4 x10^3/uL (0.0-1.1); MONO % 8 % (0-9); NEUT # 3.1 x10^3/uL (1.8-7.7); NEUT % 56 % (31-73); PLATELET COUNT 149 x10^3/uL (140-400); RED BLOOD COUNT 2.86 x10^6/uL (3.50-5.40); RED CELL DISTRIBUTION WIDTH 13.8 % (11.5-14.5); WHITE BLOOD COUNT 5.6 x10^3/uL (4.0-11.0)
[2021-02-25 01:31] LABS: CALCIUM 7.2 mg/dL (8.5-10.1); CREATININE 8.8 mg/dL (0.6-1.0); GFR 4.4; POTASSIUM 3.8 mmol/L (3.5-5.1)
[2021-02-25 01:34] LABS: ALBUMIN 2.7 g/dL (3.4-5.0); ALBUMIN/GLOBULIN RATIO 0.7 (1.0-1.7); MAGNESIUM 1.9 mg/dL (1.8-2.4); TOTAL BILIRUBIN 0.3 mg/dL (0.2-1.0); TOTAL PROTEIN 6.5 g/dL (6.4-8.2)
[2021-02-25 01:36] LABS: CREATINE KINASE 74 U/L (26-192)
[2021-02-25] MEDS ORDERED: ONDA4TAB12 PO (03:48)
[2021-02-25] MEDS ORDERED: HYOS0.1265 SL (03:48)
[2021-02-25] MEDS ORDERED: FAMO-63 PO (03:48)
[2021-02-25 03:57] VITALS: BP 129/60
== END 2021-02-25 04:19 | disposition home or self-care (01) ==
LOC: ER 21:06
DX: R10.84 Generalized abdominal pain (principal); R11.2 Nausea with vomiting, unspecified; R19.7 Diarrhea, unspecified; F41.9 Anxiety disorder, unspecified; M19.90 Unspecified osteoarthritis, unspecified site; F32.9 Major depressive disorder, single episode, unspecified; I11.0 Hypertensive heart disease with heart failure; I50.9 Heart failure, unspecified; E11.22 Type 2 diabetes mellitus with diabetic chronic kidney disease; E03.9 Hypothyroidism, unspecified; E78.00 Pure hypercholesterolemia, unspecified; F03.90 Unspecified dementia, unspecified severity, without behavioral disturbance, psychotic disturbance, mood disturbance, and anxiety; Z90.710 Acquired absence of both cervix and uterus; Z98.890 Other specified postprocedural states; Z88.1 Allergy status to other antibiotic agents; Z88.8 Allergy status to other drugs, medicaments and biological substances
CPT/HCPCS: 36415; 74176; 80053; 82553; 82962; 83605; 83690; 83735; 84484; 85025; 93005; 96361; 96374; 96375; 99285; J2405; J3490; J7040

== ENCOUNTER 2021-08-13 15:18 | Inpatient (IN) | payer MEDICARE, OTHER ==
[~2021-08-13] VITALS: Ht 154.9 cm; Wt 70.0 kg
[~2021-08-13 15:18] MED LIST changes: +FAMO-63 PO; +HYOS0.1265 SL; +MIRT-7 PO; -MIRT15TA3 PO
--- NOTE | 2021-08-13 16:35 | PHYS DOC ---
Past Medical History Past Medical History: Anemia, Anxiety, Arthritis, Bipolar, CHF, Dementia, Depression, Diabetes-Type II, GERD, High Cholesterol, Hypertension, Hypothyroid, Renal Failure Additional Past Medical Histor: major depressive disorder, Sick sinus synd, alzheimer's, Past Surgical History: Hysterectomy, Pacemaker Additional Past Surgical Histo: DIALYSIS SHUNT/FISTULA LEFT SIDE Smoking Status: Never Smoker Alcohol Use: None Drug Use: None General Adult EDM: Chief Complaint: ALTERED MENTAL STATUS HPI: HPI: 76-year-old female past medical history of bipolar disorder, insulin-dependent diabetes, hypothyroidism, hypertension, pAfib (on eliquis) and hyperlipidemia, and multiple other comorbidities, presents the ED from [facility] with concern for agitation and confusion with medication noncompliance. Patient's son who is her DURABLE POWER OF HOUSE ADMIN is at bedside, is very co ncerned for poorly controlled bipolar disorder. Patient with no active complaints in the emergency department. I spoke to Dr. Paulino who was concerned for patient's confusion/delirium versus psychosis given medication noncompliance of her bipolar disorder. Review of Systems: Review of Systems: Review of systems limited due to disorganized behavior Heart Score: C/O Chest Pain: N/A Risk Factors: Risk Factors: DM, Current or recent (<one month) smoker, HTN, HLP, family history of CAD, obesity. Risk Scores: Score 0 - 3: 2.5% MACE over next 6 weeks - Discharge Home Score 4 - 6: 20.3% MACE over next 6 weeks - Admit for Clinical Observation Score 7 - 10: 72.7% MACE over next 6 weeks - Early Invasive Strategies Allergies: Allergies: Allergies Coded Allergies Type Severity Reaction Last Updated Verified amoxicillin Allergy Intermediate 05/13/18 Yes clavulanic acid Allergy Intermediate 05/13/18 Yes Physical Exam: PE: Constitutional: Well developed, well nourished, no acute distress, non-toxic appearance, requires hearing aids HENT: Normocephalic, atraumatic, Eyes: EOMI, conjunctiva normal, no discharge. Neck: Normal range of motion, supple, Cardiovascular: S1/2 present, regular rhythm Lungs & Thorax: Speaking in full sentences, bilateral equal chest rise, no tachypnea or increased work of breathing Abdomen: soft, no tenderness, Skin: Warm, dry, no erythema, no rash. [] Extremities: No tenderness, no cyanosis, Neurologic: Alert, no focal deficits noted. [] Psychologic: Calm in ED with no agitation Current Patient Data: Vital Signs: Vital Signs Date Time Temp Pulse Resp B/P (MAP) Pulse Ox O2 Delivery O2 Flow Rate FiO2 08/13/21 15:40 98.9 69 23 123/57 (79) 99 Room Air 98.9 EKG: EKG: Sinus rhythm 66 bpm, no axis deviation, QTC 472, T wave inversion aVL with mild ST segment depression, no ST elevations, Radiology/Procedures: Radiology/Procedures: IMAGING REPORT Signed PATIENT: HECTOR GRESHAM: [id number] : 1945 LOCATION: ER AGE: 76 SEX: F EXAM STATUS: PRE ER ORD. PHYSICIAN: FORREST GUIDRY DO REASON: stomach pain PROCEDURE: PORTABLE CHEST 1V Single AP view of the chest. Comparison: 07/09/2020. Indication: Stomach pain Findings: Implanted loop recorder device is reidentified. The heart is enlarged but stable. There is no pneumothorax or effusion. No air space or interstitial disease. Impression: 1. No acute cardiopulmonary process. Electronically signed by: Abdelrahman Odonnell MD (08/13/2021 4:47 PM) [facility] DICTATED and SIGNED BY: ABDELRAHMAN ODONNELL MD DATE: 08/13/21 [id number] IMAGING REPORT Signed PATIENT: HECTOR GRESHAM: [id number] : 1945 LOCATION: ER AGE: 76 SEX: F EXAM STATUS: PRE ER ORD. PHYSICIAN: FORREST GUIDRY DO REASON: stomach pain PROCEDURE: CT ABDOMEN PELVIS WO CONTRAST Exam: CT of abdomen and pelvis without contrast INDICATION: Stomach pain TECHNIQUE: Sequential axial images through the abdomen and pelvis obtained without IV contrast. Sagittal and coronal reformatted images were reconstructed from the axial data and reviewed. Exposure: One or more of the following in the visualized dose reduction techniques were utilized for this examination: 1. Automated exposure control 2. Adjustment of the MA and/or KV according to patient size 3. Use of iterative of reconstructive technique Comparisons: 02/24/2021 FINDINGS: Heart size is normal. No pericardial effusion. Strandy opacities the dependent portion lungs likely representing atelectasis. No pleural effusion. Evaluation of solid organs is limited secondary to noncontrast technique. Liver, spleen, pancreas and adrenals are unremarkable. Gallbladder is partially distended. No perinephric inflammation or hydronephrosis. No renal or ureteral calculi are identified. Bladder is decompressed not well evaluated. Uterus is absent. No abnormal adnexal mass. Moderate amount stool in the colon. Appendix is normal. No free intra-abdominal air or fluid. No obstruction. Abdominal aorta has a normal course and caliber. No enlarged intra-abdominal lymph nodes are identified. No suspicious osseous lesions or acute fractures. IMPRESSION: No acute process identified within the abdomen or pelvis Electronically signed by: Vadim Bello MD (08/13/2021 5:13 PM) [facility] DICTATED and SIGNED BY: VADIM BELLO MD DATE: 08/13/21 [id number] 0 Course & Med Decision Making: Course & Med Decision Making Pertinent Labs and Imaging studies reviewed. (See chart for details) Concern for acute psychosis in setting of medication noncompliance, nonketotic hyperglycemia. Will admit for further medical management with nephrology and psychology consulted. Patient did not require any medication in the ED for agitation. Patient's son who is her DPOA agrees to this plan. Patient is full code. I have spoken with the patient and/or caregivers. I have explained the patient's condition, diagnosis and treatment plan based on the information available to me at this time. I have answered the patient's and/or caregivers questions and answered any concerns. The patient and/or caregivers have as good an understanding of the patient's diagnosis, condition and treatment plan as can be expected at this point. The patient has been stabilized within the capability of the emergency department. The patient will be transported for f urther care and management or will be moved to an observation or inpatient service. I have communicated with the staff or medical practitioner taking over this patient's care. Ulysses Disclaimer: Ulysses Disclaimer: This electronic medical record was generated, in whole or in part, using a voice recognition dictation system. Departure Departure Impression: Primary Impression: Acute psychosis Additional Impressions: ESRD (end stage renal disease) Medication noncompliance due to cognitive impairment Disposition: ADMITTED INPATIENT Admitting Physician: Houston Reid Condition: STABLE Referrals: HOUSTON REID MD (PCP) FORREST GUIDRY DO Aug 13, 2021 16:35
--- NOTE | 2021-08-13 16:49 | RAD ---
Single AP view of the chest. Comparison: 07/09/2020. Indication: Stomach pain Findings: Implanted loop recorder device is reidentified. The heart is enlarged but stable. There is no pneumo thorax or effusion. No air space or interstitial disease. Impression: 1. No acute cardiopulmonary process. Electronically signed by: Abdelrahman Odonnell MD (08/13/2021 4:47 PM) [facility]
--- NOTE | 2021-08-13 17:15 | RAD ---
Exam: CT of abdomen and pelvis without contrast INDICATION: Stomach pain TECHNIQUE: Sequential axial images through the abdomen and pelvis obtained without IV contrast. Sagit jayleen and coronal reformatted images were reconstructed from the axial data and reviewed. Exposure: One or more of the following in the visualized dose reduction techniques were utilized for this examination: 1. Automated exposure control 2. Adjustment of the MA and/or KV according to patient size 3. Use of iterative of reconstructive technique Comparisons: 02/24/2021 FINDINGS: Heart size is normal. No pericardial effusion. Strandy opacities the dependent portion lungs likely r epresenting atelectasis. No pleural effusion. Evaluation of solid organs is limited secondary to noncontrast technique. Liver, spleen, pancreas and adrenals are unremarkable. Gallbladder is partially distended. No perinephric inflammation or hydronephrosis. No renal or ureteral calculi are identified. Bladder is decompressed not well evaluated. Uterus is absent. No abnormal adnexal mass. Moderate amount stool in the colon. Appendix is normal. No free intra-abdominal air or fluid. No obst ruction. Abdominal aorta has a normal course and caliber. No enlarged intra-abdominal lymph nodes are identified. No suspicious osseous lesions or acute fractures. IMPRESSION: No acute process identified within the abdomen or pelvis Electronically signed by: Vadim Garza MD (08/13/2021 5:13 PM) [facility]
[2021-08-13 17:31] LABS: BASO % 1 % (0-3); EOS # 0.1 x10^3/uL (0.0-0.7); EOS % 3 % (0-3); HEMATOCRIT 33.2 % (36.0-47.0); HEMOGLOBIN 11.1 g/dL (12.0-15.5); LYMPH # 1.6 x10^3/uL (1.0-4.8); LYMPH % 28 % (24-48); MEAN CORPUSCULAR HEMOGLOBIN 35 pg (25-35); MEAN CORPUSCULAR HGB CONC 33 g/dL (31-37); MEAN CORPUSCULAR VOLUME 104 fL (79-100); MONO # 0.4 x10^3/uL (0.0-1.1); MONO % 8 % (0-9); NEUT # 3.4 x10^3/uL (1.8-7.7); NEUT % 61 % (31-73); PLATELET COUNT 151 x10^3/uL (140-400); RED BLOOD COUNT 3.18 x10^6/uL (3.50-5.40); RED CELL DISTRIBUTION WIDTH 14.8 % (11.5-14.5); WHITE BLOOD COUNT 5.6 x10^3/uL (4.0-11.0)
[2021-08-13 17:37] LABS: CALCIUM 8.7 mg/dL (8.5-10.1); CREATININE 10.7 mg/dL (0.6-1.0); GFR 3.5; POTASSIUM 5.1 mmol/L (3.5-5.1)
[2021-08-13 17:43] LABS: ALBUMIN 3.5 g/dL (3.4-5.0); DIRECT BILIRUBIN 0.1 mg/dL (0.0-0.2); MAGNESIUM 2.2 mg/dL (1.8-2.4); TOTAL BILIRUBIN 0.3 mg/dL (0.2-1.0); TOTAL PROTEIN 7.6 g/dL (6.4-8.2)
--- NOTE | 2021-08-13 18:09 | EKG ---
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
[2021-08-13 23:34] VITALS: BP 104/33
[2021-08-14 03:31] VITALS: BP 104/36
[2021-08-14 07:00] VITALS: BP 111/29
[2021-08-14] MEDS ORDERED: ACETAMINOPHEN 500 MG TABLET PO PRN (08:00)
[2021-08-14] MEDS ORDERED: LOPERAMIDE 2 MG CAPSULE PO PRN (08:00)
[2021-08-14] MEDS ORDERED: traMADol 50 MG TABLET PO PRN (08:00)
[2021-08-14] MEDS ORDERED: DEXTROSE 50% 25 GM / 50ML DISP.SYRIN. IV PRN (08:15)
[2021-08-14] MEDS ORDERED: ONDANSETRON ODT 4 MG TAB.RAPDIS. PO PRN (08:45)
[2021-08-14] MEDS: HYDROCORTISONE 1% TOPICAL CREAM 30GM TUBE. TP SCH ×2 (09:00→21:00)
[2021-08-14] MEDS: hydrALAZINE 25 MG TABLET PO SCH ×2 (09:00→21:00)
[2021-08-14] MEDS ORDERED: FAMOTIDINE 20 MG TABLET. PO SCH (09:00)
[2021-08-14] MEDS: AMIODARONE HCL 200 MG TABLET. PO SCH (09:00)
[2021-08-14] MEDS: DONEPEZIL HCL 10 MG TABLET. PO SCH (09:00)
[2021-08-14] MEDS: POLYVINYL ALCOHOL 1.4% OPHTH SOLUTION 15ML BOTTLE. OU SCH ×2 (09:00→21:00)
[2021-08-14] MEDS: ISOSORBIDE MONONITRATE ER 30 MG TAB.ER.24H PO SCH (09:00)
[2021-08-14] MEDS: METOPROLOL SUCC 24HR ER 25 MG TAB.ER.24H. PO SCH (09:00)
[2021-08-14] MEDS ORDERED: ERGOCALCIFEROL (VITAMIN D2) 50,000 UNIT CAPSULE. PO SCH (09:00)
[2021-08-14] MEDS ORDERED: BENZONATATE 100 MG CAPSULE. PO PRN (09:00)
[2021-08-14] MEDS: busPIRone 5 MG TABLET. PO SCH ×3 (09:07→21:37)
[2021-08-14] MEDS ORDERED: NYSTATIN 100,000 UNIT/GM TOPICAL CREAM 15GM TUBE. TP PRN (09:15)
[2021-08-14] MEDS ORDERED: guaiFENesin DM 200MG/20MG 10 ML SYRUP PO PRN (09:15)
[2021-08-14] MEDS ORDERED: TRIAMCINOLONE ACETONIDE 0.5% TOPICAL CREAM 15GM TUBE. TP PRN (09:15)
[2021-08-14] MEDS: APIXABAN 2.5 MG TABLET. PO SCH ×2 (09:20→21:40)
[2021-08-14] MEDS: LEVOTHYROXINE 175 MCG TABLET PO SCH (09:20)
[2021-08-14] MEDS: POTASSIUM CHLORIDE 10 MEQ TABLET.ER. PO SCH (09:21)
[2021-08-14] MEDS: DOCUSATE SODIUM 100 MG CAPSULE. PO PRN (09:21)
[2021-08-14] MEDS: FAMOTIDINE 20 MG TABLET. PO SCH (09:28)
[2021-08-14] MEDS: QUEtiapine 25 MG TABLET. PO SCH ×2 (09:29→21:39)
[2021-08-14] MEDS: MULTIVITAMIN with MINERAL TABLET. PO SCH (09:36)
[2021-08-14] MEDS: DIVALPROEX EXTENDED RELEASE 250 MG TAB.ER.24H. PO SCH (09:36)
--- NOTE | 2021-08-14 09:52 | HP ---
ADMIT DATE: 08/14/2021 HISTORY OF PRESENT ILLNESS: This 76-year-old female is well known to me, followup for many years in the office and now at [facility]. The patient has been somewhat agitated, confused, refusing her medicines for the entire week, had been direct to dialysis with the help of her son. She is not acting like herself at all and is quite paranoid with some new nursing staff at the skilled nursing, thinking that they are out to get her. She was felt this to be more of a psychotic type picture and admitted for further evaluation. PAST MEDICAL HISTORY: Remarkable for bipolar depression, congestive heart failure; anemia; anxiety; arthritis of the knees which is severe; diabetes; GERD; hyperlipidemia; hypertension; hypothyroid; end-stage renal disease; sick sinus syndrome. She does have a pacemaker placement and a prior hysterectomy as well as dialysis shunt in her left arm. MEDICATIONS: Brought with the patient, listed on computer have been addressed. ALLERGIES: SHE IS ALLERGIC TO AUGMENTIN. SOCIAL HISTORY: She is , lifetime nonsmoker, nondrinker, does not use drugs. longterm resident. FAMILY HISTORY: Positive for longevity. REVIEW OF SYSTEMS: Remarkable for her currently stating since she is in the hospital she will take medications and I am of the hope that getting her on her medications will get her back to where she will take a month on return to the skilled nursing. PHYSICAL EXAMINATION: GENERAL: She is a well-developed, well-nourished female in no acute distress, lying in bed. HEAD, EYES, EARS, NOSE AND THROAT: Remarkable for hearing aids. NECK: Supple, without adenopathy, thyromegaly. VITAL SIGNS: Stable with lower blood pressures and I have discussed with nursing. Holding blood pressure medicine this morning and I am not sure where that is coming from particularly given the fact that she normally takes at least 4 medicines to control it and will get dialysis later today. CHEST: Clear to auscultation. HEART: Regular rate and rhythm without S3, S4 or murmur. ABDOMEN: Soft, nontender, without hepatosplenomegaly or mass. EXTREMITIES: Without cyanosis, clubbing, or significant edema. She does have osteoarthritic changes of the knees. NEUROLOGIC: Nonfocal. IMAGING: Chest x-ray and CT scan abdomen and pelvis were essentially unremarkable. LABORATORY DATA: Likewise is mostly unremarkable. Her BNP is elevated at 3805, BUN and creatinine are elevated at 7 and 10.7, though she is on dialysis. Sugar was 382 on admission, but again not taking her medications. CBC is mostly unremarkable. IMPRESSION: 1. Mental status change with psychosis, likely making everything worse, but not taking medicines all week. 2. End-stage renal disease. 3. Multiple other problems listed above. PLAN: The patient has been admitted. She agrees to take her medicines at this point in time with antihypertensives will be held today. Dialysis will be continued and hopefully mental status will improve to the point with medication. We can get her back to her skilled nursing living situation. BA DR: Katelynn TID: [phone]
[2021-08-14 11:00] VITALS: BP 96/30
[2021-08-14] MEDS ORDERED: IV NORMAL SALINE 1000ML BAG 1,000 ML IV PRN ×2 (11:15)
[2021-08-14] MEDS ORDERED: ALBUMIN HUMAN 25% 200 ML IV PRN (11:15)
[2021-08-14] MEDS ORDERED: diphenhydrAMINE 50 MG/ML VIAL IV PRN ×2 (11:15)
[2021-08-14] MEDS ORDERED: DIALYSIS PATIENT. MC PRN ×2 (11:15)
[2021-08-14] MEDS: CALCIUM ACETATE 667 MG CAPSULE PO SCH ×3 (12:38→21:36)
[2021-08-14] MEDS: INSULIN LISPRO 300 UNITS/3 ML VIAL. SQ SCH ×2 (12:42→17:00)
--- NOTE | 2021-08-14 12:50 | PDOC2 ---
CONSULT Date of Consult Date of Consult DATE: 08/14/21 TIME: 12:47 Reason for Consult Reason for Consult: ESRD Source Source: Chart review, Patient History of Present Illness Reason for Visit: Patient is 76-year-old female resides at [facility]. Per Hx Obtained from chart review she has been somewhat agitated, confused, refusing her medicines for the entire week, She was not acting like herself at all and is quite paranoid with some new nursing staff at the snf, thinking that they are out to get her. She was felt this to be more of a psychotic type picture and admitted for further evaluation. Denies N/V/D. NoF/C . No abdominal pain. No SOB or CP. She states her dialysis days are TTS @ [facility] Past Medical History Cardiovascular: HTN, Valve insufficiency, Pulmonary hypertension Pulmonary: No pertinent hx CENTRAL NERVOUS SYSTEM: Dementia, Periperal neuropathy GI: GERD, Peptic Ulcer disease Heme/Onc: No pertinent hx Hepatobiliary: No pertinent hx Psych: Bipolar Rheumatologic: No pertinent hx Infectious disease: No pertinent hx Renal/: Chronic renal failure Endocrine: Diabetes, Hyperparathyroidism Past Surgical History Past Surgical History: Hysterectomy Family History Family History: Alzheimer's Disease Social History ALCOHOL: none Drugs: None Lives: with Family Current Problem List Problem List Problems Medical Problems: (1) Acute psychosis Status: Acute (2) ESRD (end stage renal disease) Status: Acute (3) Medication noncompliance due to cognitive impairment Status: Acute Current Medications Current Medications Current Medications Acetaminophen (Tylenol) 500 mg PRN Q6HRS PRN PO PAIN; Start 08/14/21 at 08:00 Amlodipine Besylate (Norvasc) 5 mg DAILY PO ; Start 08/14/21 at 09:00 Apixaban (Eliquis) 2.5 mg BID PO Last administered on 08/14/21at 09:20; Start 08/14/21 at 09:00 Atorvastatin Calcium (Lipitor) 20 mg HS PO ; Start 08/14/21 at 21:00 Buspirone HCl (Buspar) 5 mg TID PO Last administered on 08/14/21at 09:07; Start 08/14/21 at 09:00 Cetirizine HCl (ZyrTEC) 10 mg HS PO ; Start 08/14/21 at 21:00 Divalproex Sodium (Depakote Er) 250 mg DAILY PO Last administered on 08/14/21at 09:36; Start 08/14/21 at 09:00 Docusate Sodium (Colace) 100 mg PRN DAILY PRN PO CONSTIPATION Last administered on 08/14/21at 09:21; Start 08/14/21 at 08:00 Donepezil HCl (Aricept) 10 mg DAILY PO Last administered on 08/14/21at 09:00; Start 08/14/21 at 09:00 Ergocalciferol (Vitamin D2) 50,000 unit Th PO Last administered on 08/14/21at 09:07; Start 08/14/21 at 09:00 Famotidine (Pepcid) 20 mg DAILY PO ; Start 08/14/21 at 09:00; Stop 08/14/21 at 08:39; Status DC Hydralazine HCl (Apresoline) 25 mg BID PO ; Start 08/14/21 at 09:00 Isosorbide Mononitrate (Imdur) 30 mg DAILY PO ; Start 08/14/21 at 09:00 Levothyroxine Sodium (Synthroid) 175 mcg DAILY06 PO Last administered on 08/14/21at 09:20; Start 08/14/21 at 09:00 Loperamide HCl (Imodium) 2 mg PRN Q8HRS PRN PO DIARRHEA; Start 08/14/21 at 08:00 Metoprolol Succinate (Toprol Xl) 25 mg DAILY PO ; Start 08/14/21 at 09:00 Potassium Chloride (Klor-Con) 10 meq DAILY PO Last administered on 08/14/21at 09:21; Start 08/14/21 at 09:00 Tramadol HCl (Ultram) 50 mg PRN Q8HRS PRN PO PAIN; Start 08/14/21 at 08:00 Trazodone HCl (Desyrel) 50 mg PRN QHS PRN PO INSOMNIA; Start 08/14/21 at 08:00 Amiodarone HCl (Cordarone) 100 mg DAILY PO ; Start 08/14/21 at 09:00 Benzonatate (Tessalon Perle) 200 mg PRN TID PRN PO COUGH; Start 08/14/21 at 09:00 Calcium Acetate (Phoslo) 667 mg TIDWMEALS PO Last administered on 08/14/21at 12:38; Start 08/14/21 at 12:00 Calcium Carbonate/ Glycine (Tums) 500 mg HS PO ; Start 08/14/21 at 21:00 Glycerin/ Hypromellose/ Polyethylene (Artificial Tears) 1 drop BID OU ; Start 08/14/21 at 09:00 Guaifenesin (Robitussin Dm) 10 ml PRN Q6HRS PRN PO COUGH; Start 08/14/21 at 09:15 Hydrocortisone (Cortaid) 1 jarvis BID TP ; Start 08/14/21 at 09:00 Insulin Glargine (Lantus Syringe) 18 unit QHS SQ ; Start 08/14/21 at 21:00 Non-Formulary Medication (Melatonin ) 2 tab QHS PO ; Start 08/14/21 at 21:00; Status UNV Multivitamins (Thera M Plus) 1 tab DAILY PO Last administered on 08/14/21at 09:36; Start 08/14/21 at 09:00 Triamcinolone Acetonide (Kenalog 0.5%) 1 jarvis PRN BID PRN TP REDNESS; Start 08/14/21 at 09:15 Ondansetron HCl (Zofran Odt) 4 mg PRN Q6HRS PRN PO NAUSEA/VOMITING; Start 08/14/21 at 08:45 Quetiapine Fumarate (SEROquel) 50 mg BID PO Last administered on 08/14/21at 09:29; Start 08/14/21 at 09:00 Insulin Human Lispro (HumaLOG) 0-7 UNITS TIDWMEALS SQ Last administered on 08/14/21at 12:42; Start 08/14/21 at 12:00 Dextrose (Dextrose 50%-Water Syringe) 12.5 gm PRN Q15MIN PRN IV SEE COMMENTS; Start 08/14/21 at 08:15 Famotidine (Pepcid) 20 mg Q48H PO Last administered on 08/14/21at 09:28; Start 08/14/21 at 09:00 Nystatin (Mycostatin) 1 jarvis PRN BID PRN TP REDNESS; Start 08/14/21 at 09:15 Sodium Chloride 1,000 ml @ 1,000 mls/hr Q1H PRN IV hypotension; Start 08/14/21 at 11:15; Stop 08/14/21 at 17:14 Albumin Human 200 ml @ 200 mls/hr 1X PRN PRN IV Hypotension; Start 08/14/21 at 11:15; Stop 08/14/21 at 17:14 Diphenhydramine HCl (Benadryl) 25 mg 1X PRN PRN IV ITCHING; Start 08/14/21 at 11:15; Stop 08/15/21 at 11:14 Diphenhydramine HCl (Benadryl) 25 mg 1X PRN PRN IV ITCHING; Start 08/14/21 at 11:15; Stop 08/15/21 at 11:14 Sodium Chloride 1,000 ml @ 400 mls/hr Q2H30M PRN IV PATENCY; Start 08/14/21 at 11:15; Stop 08/14/21 at 23:14 Info (PHARMACY MONITORING -- do not chart) 1 each PRN DAILY PRN MC SEE COMMENTS; Start 08/14/21 at 11:15; Status UNV Info (PHARMACY MONITORING -- do not chart) 1 each PRN DAILY PRN MC SEE COMMENTS; Start 08/14/21 at 11:15 Active Scripts Active Levsin-Sl (Hyoscyamine Sulfate) 0.125 Mg Tab.subl 0.125 Mg SL Q4-6HRS PRN Pepcid (Famotidine) 20 Mg Tablet 20 Mg PO BID Ondansetron Odt (Ondansetron) 4 Mg Tab.rapdis 1 Tab PO PRN Q6-8HRS PRN Reported Imodium A-D (Loperamide HCl) 2 Mg Capsule 2 Mg PO PRN Q8HRS PRN Amiodarone Hcl 100 Mg Tablet 1 Tab PO DAILY 30 Days Klor-Con 10 (Potassium Chloride) 10 Meq Tablet.er 10 Meq PO DAILY Promethazine-Dm Syrup (D-Methorphan Hb/Prometh Hcl) 118 Ml Syrup 5 Ml PO PRN Q6HRS PRN 6 Days Metoprolol Succinate ( Xl ) (Metoprolol Succinate) 25 Mg Tab.er.24h 1 Tab PO DAILY Levothyroxine Sodium 175 Mcg Tablet 1 Tab PO DAILY Lantus Solostar (Insulin Glargine,Hum.rec.anlog) 100 Unit/1 Ml Insuln.pen 18 Unit SQ QHS Eliquis (Apixaban) 2.5 Mg Tablet 2.5 Mg PO BID Atorvastatin Calcium 20 Mg Tablet 20 Mg PO HS Thera Tears (Carboxymethylcellulose Sodium) 15 Ml Drops 1 Drop EACHEYE BID Benzonatate 200 Mg Capsule 200 Mg PO TID PRN Hydralazine Hcl 25 Mg Tablet 25 Mg PO BID Acetaminophen 500 Mg Tablet 500 Mg PO PRN Q6HRS PRN Trazodone Hcl 50 Mg Tablet 50 Mg PO PRN QHS Tums (Calcium Carbonate) 300 Mg Tab.chew 500 Mg PO HS Zyrtec (Cetirizine Hcl) 10 Mg Tablet 10 Mg PO HS Zofran (Ondansetron Hcl) 4 Mg Tablet 1 Tab PO PRN Q6HRS Amlodipine Besylate 5 Mg Tablet 5 Mg PO DAILY take 1 tab every Sun, Mon, Wed, Fri Tramadol Hcl 50 Mg Tablet 50 Mg PO Q8HRS PRN Melatonin 3 Mg Tablet 2 Tab PO QHS Hydrocortisone 59 Ml Lotion 1 Jarvis TP BID Colace (Docusate Sodium) 100 Mg Capsule 1 Cap PO PRN DAILY PRN Calcium Acetate 667 Mg Tablet 667 Mg PO TIDWMEALS Buspirone Hcl 5 Mg Tablet 1 Tab PO TID Seroquel (Quetiapine Fumarate) 50 Mg Tablet 50 Mg PO BID Nystatin-Triamcinolone Cream (Nystatin/Triamcin) 15 Gm Cream..g. 1 Jarvis TP PRN PRN Depakote Er (Divalproex Sodium) 250 Mg Tab.er.24h 250 Mg PO DAILY Novolog Flexpen (Insulin Aspart) 100 Unit/1 Ml Insuln.pen 4 Unit SQ TIDWMEALS Vitamin D2 (Ergocalciferol (Vitamin D2)) 50,000 Unit Capsule 50,000 Unit PO DAILY Donepezil Hcl 10 Mg Tablet 10 Mg PO DAILY Isosorbide Mononitrate Er (Isosorbide Mononitrate) 30 Mg Tab.er.24h 1 Tab PO DAILY Multivitamins (Multivitamin) 1 Each Tablet 1 Tab PO DAILY Allergies Allergies: Coded Allergies: amoxicillin (Verified Allergy, Intermediate, 05/13/18) clavulanic acid (Verified Allergy, Intermediate, 05/13/18) ROS Review of System As per HPi, rest of the ROS is negative Physical Exam Physical Exam General NAD HEEN OM moist Neck Supple Lungs CTA B, Non labored CV RRR Abd Soft, NT , BS + Ext No LE edema No meza Neuro Grossly Normal Derm No Rash Vital Signs Vital Signs Date Time Temp Pulse Resp B/P (MAP) Pulse Ox O2 Delivery O2 Flow Rate FiO2 08/14/21 09:00 54 111/29 08/14/21 07:00 97.5 17 90 Room Air 97.5 Assessment & Plan ESRD on HD at [facility] under Dr Metzger TTS , dialysis today , discussed treatment plan with Genevieve Anemia- No indication for [place] Hx of Bipolar/Attention seeking behavior per Dr. Metzger's previous note Labs Labs Laboratory Tests Test 08/13/21 17:18 08/13/21 20:00 08/13/21 21:52 08/14/21 06:27 White Blood Count 5.6 x10^3/uL (4.0-11.0) Red Blood Count 3.18 x10^6/uL (3.50-5.40) Hemoglobin 11.1 g/dL (12.0-15.5) Hematocrit 33.2 % (36.0-47.0) Mean Corpuscular Volume 104 fL (79-100) Mean Corpuscular Hemoglobin 35 pg (25-35) Mean Corpuscular Hemoglobin Concent 33 g/dL (31-37) Red Cell Distribution Width 14.8 % (11.5-14.5) Platelet Count 151 x10^3/uL (140-400) Neutrophils (%) (Auto) 61 % (31-73) Lymphocytes (%) (Auto) 28 % (24-48) Monocytes (%) (Auto) 8 % (0-9) Eosinophils (%) (Auto) 3 % (0-3) Basophils (%) (Auto) 1 % (0-3) Neutrophils # (Auto) 3.4 x10^3/uL (1.8-7.7) Lymphocytes # (Auto) 1.6 x10^3/uL (1.0-4.8) Monocytes # (Auto) 0.4 x10^3/uL (0.0-1.1) Eosinophils # (Auto) 0.1 x10^3/uL (0.0-0.7) Basophils # (Auto) 0.0 x10^3/uL (0.0-0.2) Sodium Level 138 mmol/L (136-145) Potassium Level 5.1 mmol/L (3.5-5.1) Chloride Level 96 mmol/L (98-107) Carbon Dioxide Level 28 mmol/L (21-32) Anion Gap 14 (6-14) Blood Urea Nitrogen 70 mg/dL (7-20) Creatinine 10.7 mg/dL (0.6-1.0) Estimated GFR (Cockcroft-Gault) 3.5 Glucose Level 382 mg/dL (70-99) Calcium Level 8.7 mg/dL (8.5-10.1) Magnesium Level 2.2 mg/dL (1.8-2.4) Total Bilirubin 0.3 mg/dL (0.2-1.0) Direct Bilirubin 0.1 mg/dL (0.0-0.2) Aspartate Amino Transf (AST/SGOT) 10 U/L (15-37) Alanine Aminotransferase (ALT/SGPT) 18 U/L (14-59) Alkaline Phosphatase 180 U/L (46-116) Troponin I Quantitative < 0.017 ng/mL (0.000-0.055) 0.023 ng/mL (0.000-0.055) BR-Sqj-O-Type Natriuretic Peptide 3805 pg/mL (0-124) Total Protein 7.6 g/dL (6.4-8.2) Albumin 3.5 g/dL (3.4-5.0) Lipase 335 U/L (73-393) SARS-CoV-2 Antigen (Rapid) Negative (NEGATIVE) Glucose (Fingerstick) 254 mg/dL (70-99) Test 08/14/21 06:50 08/14/21 07:59 08/14/21 11:54 Troponin I Quantitative < 0.017 ng/mL (0.000-0.055) Hepatitis B Surface Antigen Nonreactive (Nonreactive) Hepatitis B Surface Antibody Reactive Glucose (Fingerstick) 209 mg/dL (70-99) 260 mg/dL (70-99) Laboratory Tests Test 08/13/21 17:18 08/13/21 20:00 08/13/21 21:52 08/14/21 06:27 White Blood Count 5.6 x10^3/uL (4.0-11.0) Red Blood Count 3.18 x10^6/uL (3.50-5.40) Hemoglobin 11.1 g/dL (12.0-15.5) Hematocrit 33.2 % (36.0-47.0) Mean Corpuscular Volume 104 fL (79-100) Mean Corpuscular Hemoglobin 35 pg (25-35) Mean Corpuscular Hemoglobin Concent 33 g/dL (31-37) Red Cell Distribution Width 14.8 % (11.5-14.5) Platelet Count 151 x10^3/uL (140-400) Neutrophils (%) (Auto) 61 % (31-73) Lymphocytes (%) (Auto) 28 % (24-48) Monocytes (%) (Auto) 8 % (0-9) Eosinophils (%) (Auto) 3 % (0-3) Basophils (%) (Auto) 1 % (0-3) Neutrophils # (Auto) 3.4 x10^3/uL (1.8-7.7) Lymphocytes # (Auto) 1.6 x10^3/uL (1.0-4.8) Monocytes # (Auto) 0.4 x10^3/uL (0.0-1.1) Eosinophils # (Auto) 0.1 x10^3/uL (0.0-0.7) Basophils # (Auto) 0.0 x10^3/uL (0.0-0.2) Sodium Level 138 mmol/L (136-145) Potassium Level 5.1 mmol/L (3.5-5.1) Chloride Level 96 mmol/L (98-107) Carbon Dioxide Level 28 mmol/L (21-32) Anion Gap 14 (6-14) Blood Urea Nitrogen 70 mg/dL (7-20) Creatinine 10.7 mg/dL (0.6-1.0) Estimated GFR (Cockcroft-Gault) 3.5 Glucose Level 382 mg/dL (70-99) Calcium Level 8.7 mg/dL (8.5-10.1) Magnesium Level 2.2 mg/dL (1.8-2.4) Total Bilirubin 0.3 mg/dL (0.2-1.0) Direct Bilirubin 0.1 mg/dL (0.0-0.2) Aspartate Amino Transf (AST/SGOT) 10 U/L (15-37) Alanine Aminotransferase (ALT/SGPT) 18 U/L (14-59) Alkaline Phosphatase 180 U/L (46-116) Troponin I Quantitative < 0.017 ng/mL (0.000-0.055) 0.023 ng/mL (0.000-0.055) VZ-Zms-Z-Type Natriuretic Peptide 3805 pg/mL (0-124) Total Protein 7.6 g/dL (6.4-8.2) Albumin 3.5 g/dL (3.4-5.0) Lipase 335 U/L (73-393) SARS-CoV-2 Antigen (Rapid) Negative (NEGATIVE) Glucose (Fingerstick) 254 mg/dL (70-99) Test 08/14/21 06:50 08/14/21 07:59 08/14/21 11:54 Troponin I Quantitative < 0.017 ng/mL (0.000-0.055) Hepatitis B Surface Antigen Nonreactive (Nonreactive) Hepatitis B Surface Antibody Reactive Glucose (Fingerstick) 209 mg/dL (70-99) 260 mg/dL (70-99) Review All relevant outside records, renal labs, imaging studies, telemetry/EKG's were reviewed. Images Images PORTABLE CHEST 1V Single AP view of the chest. Comparison: 07/09/2020. Indication: Stomach pain Findings: Implanted loop recorder device is reidentified. The heart is enlarged but stable. There is no pneumothorax or effusion. No air space or interstitial disease. Impression: 1. No acute cardiopulmonary process. CT of abdomen and pelvis without contrast INDICATION: Stomach pain TECHNIQUE: Sequential axial images through the abdomen and pelvis obtained without IV contrast. Sagittal and coronal reformatted images were reconstructed from the axial data and reviewed. Exposure: One or more of the following in the visualized dose reduction techniques were utilized for this examination: 1. Automated exposure control 2. Adjustment of the MA and/or KV according to patient size 3. Use of iterative of reconstructive technique Comparisons: 02/24/2021 FINDINGS: Heart size is normal. No pericardial effusion. Strandy opacities the dependent portion lungs likely representing atelectasis. No pleural effusion. Evaluation of solid organs is limited secondary to noncontrast technique. Liver, spleen, pancreas and adrenals are unremarkable. Gallbladder is partially distended. No perinephric inflammation or hydronephrosis. No renal or ureteral calculi are identified. Bladder is decompressed not well evaluated. Uterus is absent. No abnormal adnexal mass. Moderate amount stool in the colon. Appendix is normal. No free intra-abdominal air or fluid. No obstruction. Abdominal aorta has a normal course and caliber. No enlarged intra-abdominal lymph nodes are identified. No suspicious osseous lesions or acute fractures. IMPRESSION: No acute process identified within the abdomen or pelvis JUAN CARLOS SONI MD Aug 14, 2021 12:50
--- NOTE | 2021-08-14 13:44 | NUR ---
SW following. Discussed with RN. 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 Rapid COVID-19 negative. SW will continue to follow.
[2021-08-14 19:00] VITALS: BP 96/30
[2021-08-14] MEDS: INSULIN GLARGINE SYRINGE. SQ SCH (21:00)
[2021-08-14] MEDS ORDERED: NON FORMULARY ITEM (Melatonin 2 TAB) PO SCH (21:00)
[2021-08-14] MEDS ORDERED: CALCIUM CARBONATE 500 MG TAB.CHEW PO SCH (21:00)
[2021-08-14] MEDS: CETIRIZINE HCL 10 MG TABLET. PO SCH (21:37)
[2021-08-14] MEDS: ATORVASTATIN CALCIUM 20 MG TABLET PO SCH (21:37)
[2021-08-14] MEDS: CALCIUM CARBONATE 500 MG TAB.CHEW PO SCH (22:37)
[2021-08-14 23:00] VITALS: BP 129/39
[2021-08-15 03:00] VITALS: BP 123/30
[2021-08-15] MEDS: LEVOTHYROXINE 175 MCG TABLET PO SCH (06:11)
[2021-08-15 07:00] VITALS: BP 109/34
[2021-08-15] MEDS: busPIRone 5 MG TABLET. PO SCH ×3 (08:08→20:13)
[2021-08-15] MEDS: QUEtiapine 25 MG TABLET. PO SCH ×2 (08:08→20:12)
[2021-08-15] MEDS: CALCIUM ACETATE 667 MG CAPSULE PO SCH ×3 (08:08→17:41)
[2021-08-15] MEDS: DIVALPROEX EXTENDED RELEASE 250 MG TAB.ER.24H. PO SCH (08:09)
[2021-08-15] MEDS: MULTIVITAMIN with MINERAL TABLET. PO SCH (08:09)
[2021-08-15] MEDS: POTASSIUM CHLORIDE 10 MEQ TABLET.ER. PO SCH (08:13)
[2021-08-15] MEDS: POLYVINYL ALCOHOL 1.4% OPHTH SOLUTION 15ML BOTTLE. OU SCH ×2 (08:15→21:00)
[2021-08-15] MEDS: INSULIN LISPRO 300 UNITS/3 ML VIAL. SQ SCH ×3 (08:15→17:00)
[2021-08-15] MEDS: DONEPEZIL HCL 10 MG TABLET. PO SCH (08:16)
[2021-08-15] MEDS: APIXABAN 2.5 MG TABLET. PO SCH ×2 (08:16→20:12)
[2021-08-15] MEDS: hydrALAZINE 25 MG TABLET PO SCH ×2 (09:00→20:15)
[2021-08-15] MEDS: AMIODARONE HCL 200 MG TABLET. PO SCH (09:00)
[2021-08-15] MEDS: HYDROCORTISONE 1% TOPICAL CREAM 30GM TUBE. TP SCH ×2 (09:00→21:00)
[2021-08-15] MEDS: METOPROLOL SUCC 24HR ER 25 MG TAB.ER.24H. PO SCH (09:00)
[2021-08-15] MEDS: ISOSORBIDE MONONITRATE ER 30 MG TAB.ER.24H PO SCH (09:00)
--- NOTE | 2021-08-15 09:28 | PN ---
DATE: 08/15/2021 DAILY PROGRESS NOTE LOCATION: She is in room 534. SUBJECTIVE: This 76-year-old female remains hospitalized at this point with psychosis as well as unexplained hypotension. She is awake, alert, has her baseline decreased hearing. She is, however, taking her medicines since admission. OBJECTIVE: VITAL SIGNS: Stable. She is afebrile. Blood pressures are maybe a little bit better this morning. Still holding all 4 of her antihypertensives at this point yesterday and will be held again today after discussion with nursing. CHEST: Clear. HEART: Regular. ABDOMEN: Benign. She did receive dialysis yesterday. IMPRESSION: 1. Psychosis, may be slightly improved. 2. End-stage renal disease. 3. Unexplained hypotension. PLAN: Continue present monitoring, once clearing another day or so of medicines in her system and decide where we go from there. My reluctance at this point discharge is the hypotension and no good explanation for the same at this point. CARLITO DR: Katelynn TID: [phone]
[2021-08-15 11:00] VITALS: BP 106/32
--- NOTE | 2021-08-15 13:06 | NUR ---
SW following. Discussed with RN, pt from [facility], room air, renal diet. COVID-19 negative. SW faxed updates to [facility]. SW will continue to follow.
--- NOTE | 2021-08-15 13:12 | PDOC ---
DATE OF SERVICE DATE: 08/15/21 TIME: 13:10 SUBJECTIVE ROS Hypotensive, asymptomatic No SOB, No N/V OBJECTIVE Vital Signs Vital Signs Date Time Temp Pulse Resp B/P (MAP) Pulse Ox O2 Delivery O2 Flow Rate FiO2 08/15/21 07:00 98.7 59 17 109/34 (59) 98 Room Air 98.7 I & 0 Intake and Output 08/15/21 07:00 Intake Total 0 ml Balance 0 ml Intake Oral 0 ml PHYSICAL EXAM Physical Exam General NAD HEEN OM moist Neck Supple Lungs CTA B, Non labored CV RRR Abd Soft, NT , BS + Ext No LE edema No meza Neuro Grossly Normal Derm No Rash DIAGNOSIS/ASSESSMENT Assessment & Plan ESRD on HD at [facility] under Dr Metzger TTS , No indication for dialysis today Anemia- No indication for HOSEA Hx of Bipolar/Attention seeking behavior per Dr. Metzger's previous note- Hypotension - etiology uncertain, defer to Primary Dr. Reid COMMENT/RELEVANT DATA Meds Current Medications Medications (Trade) Dose Ordered Sig/Angeles Start Time Stop Time Status Last Admin Dose Admin Acetaminophen (Tylenol) 500 mg PRN Q6HRS PRN 08/14/21 08:00 Albumin Human 200 ml @ 200 mls/hr 1X PRN PRN 08/14/21 11:15 08/14/21 17:14 DC Amiodarone HCl (Cordarone) 100 mg DAILY 08/14/21 09:00 Amlodipine Besylate (Norvasc) 5 mg DAILY 08/14/21 09:00 Apixaban (Eliquis) 2.5 mg BID 08/14/21 09:00 08/15/21 08:16 2.5 MG Atorvastatin Calcium (Lipitor) 20 mg HS 08/14/21 21:00 08/14/21 21:37 20 MG Benzonatate (Tessalon Perle) 200 mg PRN TID PRN 08/14/21 09:00 Buspirone HCl (Buspar) 5 mg TID 08/14/21 09:00 08/15/21 08:08 5 MG Calcium Acetate (Phoslo) 667 mg TIDWMEALS 08/14/21 12:00 08/15/21 12:47 667 MG Calcium Carbonate/ Glycine (Tums) 500 mg HS 08/14/21 22:37 Cetirizine HCl (ZyrTEC) 10 mg HS 08/14/21 21:00 08/14/21 21:37 10 MG Dextrose (Dextrose 50%-Water Syringe) 12.5 gm PRN Q15MIN PRN 08/14/21 08:15 Diphenhydramine HCl (Benadryl) 25 mg 1X PRN PRN 08/14/21 11:15 08/15/21 11:14 DC Divalproex Sodium (Depakote Er) 250 mg DAILY 08/14/21 09:00 08/15/21 08:09 250 MG Docusate Sodium (Colace) 100 mg PRN DAILY PRN 08/14/21 08:00 08/14/21 09:21 100 MG Donepezil HCl (Aricept) 10 mg DAILY 08/14/21 09:00 08/15/21 08:16 10 MG Ergocalciferol (Vitamin D2) 50,000 unit Th 08/14/21 09:00 08/14/21 09:07 50,000 UNIT Famotidine (Pepcid) 20 mg Q48H 08/14/21 09:00 08/14/21 09:28 20 MG Glycerin/ Hypromellose/ Polyethylene (Artificial Tears) 1 drop BID 08/14/21 09:00 Guaifenesin (Robitussin Dm) 10 ml PRN Q6HRS PRN 08/14/21 09:15 Hydralazine HCl (Apresoline) 25 mg BID 08/14/21 09:00 Hydrocortisone (Cortaid) 1 alex BID 08/14/21 09:00 Info (PHARMACY MONITORING -- do not chart) 1 each PRN DAILY PRN 08/14/21 11:15 Insulin Glargine (Lantus Syringe) 18 unit QHS 08/14/21 21:00 08/14/21 21:00 18 UNIT Insulin Human Lispro (HumaLOG) 0-7 UNITS TIDWMEALS 08/14/21 12:00 08/15/21 12:49 4 UNITS Isosorbide Mononitrate (Imdur) 30 mg DAILY 08/14/21 09:00 Levothyroxine Sodium (Synthroid) 175 mcg DAILY06 08/14/21 09:00 08/15/21 06:11 175 MCG Loperamide HCl (Imodium) 2 mg PRN Q8HRS PRN 08/14/21 08:00 Metoprolol Succinate (Toprol Xl) 25 mg DAILY 08/14/21 09:00 Multivitamins (Thera M Plus) 1 tab DAILY 08/14/21 09:00 08/15/21 08:09 1 TAB Non-Formulary Medication (Melatonin ) 2 tab QHS 08/14/21 21:00 UNV Nystatin (Mycostatin) 1 alex PRN BID PRN 08/14/21 09:15 Ondansetron HCl (Zofran Odt) 4 mg PRN Q6HRS PRN 08/14/21 08:45 Potassium Chloride (Klor-Con) 10 meq DAILY 08/14/21 09:00 08/15/21 08:13 10 MEQ Quetiapine Fumarate (SEROquel) 50 mg BID 08/14/21 09:00 08/15/21 08:08 50 MG Sodium Chloride 1,000 ml @ 400 mls/hr Q2H30M PRN 08/14/21 11:15 08/14/21 23:14 DC Tramadol HCl (Ultram) 50 mg PRN Q8HRS PRN 08/14/21 08:00 Trazodone HCl (Desyrel) 50 mg PRN QHS PRN 08/14/21 08:00 Triamcinolone Acetonide (Kenalog 0.5%) 1 alex PRN BID PRN 08/14/21 09:15 Lab Laboratory Tests Test 08/14/21 17:21 08/14/21 20:36 08/15/21 08:07 08/15/21 11:55 Glucose (Fingerstick) 83 mg/dL (70-99) 261 mg/dL (70-99) 200 mg/dL (70-99) 209 mg/dL (70-99) Results All relevant outside records, renal labs, imaging studies, telemetry/EKG's were reviewed. Justicifation of Admission Dx: Justifications for Admission: Justification of Admission Dx: Yes Acute Renal Failure: Serum Cr > 4mg/dL JUAN CARLOS SONI MD Aug 15, 2021 13:12
[2021-08-15 14:50] VITALS: BP 122/32
[2021-08-15 19:00] VITALS: BP 101/34
[2021-08-15] MEDS: CETIRIZINE HCL 10 MG TABLET. PO SCH (20:12)
[2021-08-15] MEDS: ATORVASTATIN CALCIUM 20 MG TABLET PO SCH (20:13)
[2021-08-15] MEDS: CALCIUM CARBONATE 500 MG TAB.CHEW PO SCH (20:13)
[2021-08-15] MEDS: INSULIN GLARGINE SYRINGE. SQ SCH (20:14)
[2021-08-15] MEDS: traZODone 50 MG TABLET. PO PRN (20:21)
[2021-08-15 23:04] VITALS: BP 133/42
[2021-08-16 03:19] VITALS: BP 105/32
[2021-08-16] MEDS: LEVOTHYROXINE 175 MCG TABLET PO SCH (06:25)
[2021-08-16 07:00] VITALS: BP 105/27
[2021-08-16 07:45] LABS: CALCIUM 8.8 mg/dL (8.5-10.1); CREATININE 10.4 mg/dL (0.6-1.0); GFR 3.6
[2021-08-16 07:49] LABS: POTASSIUM 5.3 mmol/L (3.5-5.1)
--- NOTE | 2021-08-16 08:32 | PDOC ---
Provider Note Date of Service: DATE: 08/16/21 TIME: 08:31 Provider Note will dc amlo, hydral as bp low, K+ 5.3 so hold po kcl also- rest of status same, cont same meds Justifications for Admission Other Justification KARYN SMITH MD Aug 16, 2021 08:32
[2021-08-16] MEDS ORDERED: IV NORMAL SALINE 250ML 250 ML IV ONE (08:45)
[2021-08-16] MEDS: HYDROCORTISONE 1% TOPICAL CREAM 30GM TUBE. TP SCH ×2 (09:00→20:47)
[2021-08-16] MEDS: busPIRone 5 MG TABLET. PO SCH ×3 (09:18→20:46)
[2021-08-16] MEDS: DONEPEZIL HCL 10 MG TABLET. PO SCH (09:18)
[2021-08-16] MEDS: FAMOTIDINE 20 MG TABLET. PO SCH (09:18)
[2021-08-16] MEDS: CALCIUM ACETATE 667 MG CAPSULE PO SCH ×3 (09:18→17:34)
[2021-08-16] MEDS: APIXABAN 2.5 MG TABLET. PO SCH ×2 (09:18→20:46)
[2021-08-16] MEDS: MULTIVITAMIN with MINERAL TABLET. PO SCH (09:18)
[2021-08-16] MEDS: DIVALPROEX EXTENDED RELEASE 250 MG TAB.ER.24H. PO SCH (09:19)
[2021-08-16] MEDS: QUEtiapine 25 MG TABLET. PO SCH ×2 (09:19→20:47)
[2021-08-16] MEDS: POLYVINYL ALCOHOL 1.4% OPHTH SOLUTION 15ML BOTTLE. OU SCH ×2 (09:20→20:47)
[2021-08-16] MEDS: INSULIN LISPRO 300 UNITS/3 ML VIAL. SQ SCH ×3 (09:30→17:37)
[2021-08-16] MEDS ORDERED: DIALYSIS PATIENT. MC PRN ×2 (09:45)
[2021-08-16] MEDS ORDERED: ALBUMIN HUMAN 25% 100 ML IV ONE (11:30)
--- NOTE | 2021-08-16 14:03 | PDOC ---
DATE OF SERVICE DATE: 08/16/21 TIME: 14:01 SUBJECTIVE ROS Seen during dialysis No SOB, No N/V OBJECTIVE Vital Signs Vital Signs Date Time Temp Pulse Resp B/P (MAP) Pulse Ox O2 Delivery O2 Flow Rate FiO2 08/16/21 07:00 98.2 58 20 105/27 (53) 99 Room Air 98.2 I & 0 Intake and Output 08/16/21 07:00 Output Total 0 ml Balance 0 ml Output Urine Total 0 ml PHYSICAL EXAM Physical Exam General NAD HEEN OM moist Neck Supple Lungs CTA B, Non labored CV RRR Abd Soft, NT , BS + Ext No LE edema No meza Neuro Grossly Normal Derm No Rash DIAGNOSIS/ASSESSMENT Assessment & Plan ESRD on HD at [facility] under Dr Meena SIMS , Seen during dialysi, tolerating well . Currently on IVF per primary 2/2 Low BP. IV Alb given during dialysis with improvement in BP Continue as ordered, Skyler Vallejo Anemia- No indication for [place] Hx of Bipolar/Attention seeking behavior per Dr. Metzger's previous note- Hypotension - BP better during dialysis COMMENT/RELEVANT DATA Meds Current Medications Medications (Trade) Dose Ordered Sig/Angeles Start Time Stop Time Status Last Admin Dose Admin Acetaminophen (Tylenol) 500 mg PRN Q6HRS PRN 08/14/21 08:00 Albumin Human 100 ml @ 100 mls/hr 1X ONCE 08/16/21 11:30 08/16/21 12:29 DC 08/16/21 11:30 100 MLS/HR Amiodarone HCl (Cordarone) 100 mg DAILY 08/14/21 09:00 Amlodipine Besylate (Norvasc) 5 mg DAILY 08/14/21 09:00 08/16/21 08:30 DC Apixaban (Eliquis) 2.5 mg BID 08/14/21 09:00 08/16/21 09:18 2.5 MG Atorvastatin Calcium (Lipitor) 20 mg HS 08/14/21 21:00 08/15/21 20:13 20 MG Benzonatate (Tessalon Perle) 200 mg PRN TID PRN 08/14/21 09:00 Buspirone HCl (Buspar) 5 mg TID 08/14/21 09:00 08/16/21 09:18 5 MG Calcium Acetate (Phoslo) 667 mg TIDWMEALS 08/14/21 12:00 10/2/21 09:18 667 MG Calcium Carbonate/ Glycine (Tums) 500 mg HS 08/14/21 22:37 08/15/21 20:13 500 MG Cetirizine HCl (ZyrTEC) 10 mg HS 08/14/21 21:00 08/15/21 20:12 10 MG Dextrose (Dextrose 50%-Water Syringe) 12.5 gm PRN Q15MIN PRN 08/14/21 08:15 Diphenhydramine HCl (Benadryl) 25 mg 1X PRN PRN 08/14/21 11:15 08/15/21 11:14 DC Divalproex Sodium (Depakote Er) 250 mg DAILY 08/14/21 09:00 08/16/21 09:19 250 MG Docusate Sodium (Colace) 100 mg PRN DAILY PRN 08/14/21 08:00 08/14/21 09:21 100 MG Donepezil HCl (Aricept) 10 mg DAILY 08/14/21 09:00 08/16/21 09:18 10 MG Ergocalciferol (Vitamin D2) 50,000 unit Th 08/14/21 09:00 08/14/21 09:07 50,000 UNIT Famotidine (Pepcid) 20 mg Q48H 08/14/21 09:00 08/16/21 09:18 20 MG Glycerin/ Hypromellose/ Polyethylene (Artificial Tears) 1 drop BID 08/14/21 09:00 08/16/21 09:20 1 DROP Guaifenesin (Robitussin Dm) 10 ml PRN Q6HRS PRN 08/14/21 09:15 Hydralazine HCl (Apresoline) 25 mg BID 08/14/21 09:00 08/16/21 08:30 DC Hydrocortisone (Cortaid) 1 alex BID 08/14/21 09:00 Info (PHARMACY MONITORING -- do not chart) 1 each PRN DAILY PRN 08/16/21 09:45 08/16/21 09:45 DC Insulin Glargine (Lantus Syringe) 18 unit QHS 08/14/21 21:00 08/15/21 20:14 18 UNIT Insulin Human Lispro (HumaLOG) 0-7 UNITS TIDWMEALS 08/14/21 12:00 08/16/21 09:30 3 UNITS Isosorbide Mononitrate (Imdur) 30 mg DAILY 08/14/21 09:00 Levothyroxine Sodium (Synthroid) 175 mcg DAILY06 08/14/21 09:00 08/16/21 06:25 175 MCG Loperamide HCl (Imodium) 2 mg PRN Q8HRS PRN 08/14/21 08:00 Metoprolol Succinate (Toprol Xl) 25 mg DAILY 08/14/21 09:00 Multivitamins (Thera M Plus) 1 tab DAILY 08/14/21 09:00 08/16/21 09:18 1 TAB Non-Formulary Medication (Melatonin ) 2 tab QHS 08/14/21 21:00 UNV Nystatin (Mycostatin) 1 alex PRN BID PRN 08/14/21 09:15 Ondansetron HCl (Zofran Odt) 4 mg PRN Q6HRS PRN 08/14/21 08:45 Potassium Chloride (Klor-Con) 10 meq DAILY 08/14/21 09:00 08/16/21 08:30 DC 08/15/21 08:13 10 MEQ Quetiapine Fumarate (SEROquel) 50 mg BID 08/14/21 09:00 08/16/21 09:19 50 MG Sodium Chloride 250 ml @ 250 mls/hr 1X ONCE 08/16/21 08:45 08/16/21 09:44 DC 08/16/21 09:30 250 MLS/HR Tramadol HCl (Ultram) 50 mg PRN Q8HRS PRN 08/14/21 08:00 Trazodone HCl (Desyrel) 50 mg PRN QHS PRN 08/14/21 08:00 08/15/21 20:21 50 MG Triamcinolone Acetonide (Kenalog 0.5%) 1 alex PRN BID PRN 08/14/21 09:15 Lab Laboratory Tests Test 08/15/21 17:37 08/16/21 06:40 08/16/21 07:28 Glucose (Fingerstick) 88 mg/dL (70-99) 159 mg/dL (70-99) Sodium Level 137 mmol/L (136-145) Potassium Level 5.3 mmol/L (3.5-5.1) Chloride Level 98 mmol/L (98-107) Carbon Dioxide Level 27 mmol/L (21-32) Anion Gap 12 (6-14) Blood Urea Nitrogen 72 mg/dL (7-20) Creatinine 10.4 mg/dL (0.6-1.0) Estimated GFR (Cockcroft-Gault) 3.6 Glucose Level 159 mg/dL (70-99) Calcium Level 8.8 mg/dL (8.5-10.1) Results All relevant outside records, renal labs, imaging studies, telemetry/EKG's were reviewed. Justicifation of Admission Dx: Justifications for Admission: Justification of Admission Dx: Yes Acute Renal Failure: Serum Cr > 4mg/dL JUAN CARLOS SONI MD Aug 16, 2021 14:03
[2021-08-16 15:00] VITALS: BP 152/63
[2021-08-16] MEDS: ISOSORBIDE MONONITRATE ER 30 MG TAB.ER.24H PO SCH (17:33)
[2021-08-16] MEDS: METOPROLOL SUCC 24HR ER 25 MG TAB.ER.24H. PO SCH (17:33)
[2021-08-16] MEDS: AMIODARONE HCL 200 MG TABLET. PO SCH (17:34)
[2021-08-16 19:00] VITALS: BP 143/55
[2021-08-16] MEDS: CALCIUM CARBONATE 500 MG TAB.CHEW PO SCH (20:47)
[2021-08-16] MEDS: INSULIN GLARGINE SYRINGE. SQ SCH (20:57)
[2021-08-16] MEDS: ATORVASTATIN CALCIUM 20 MG TABLET PO SCH (21:00)
[2021-08-16] MEDS: CETIRIZINE HCL 10 MG TABLET. PO SCH (21:00)
[2021-08-16 23:00] VITALS: BP 119/44
[2021-08-17 03:26] VITALS: BP 108/35
[2021-08-17 07:00] VITALS: BP 103/42
[2021-08-17] MEDS: INSULIN LISPRO 300 UNITS/3 ML VIAL. SQ SCH ×3 (07:52→17:28)
[2021-08-17] MEDS: HYDROCORTISONE 1% TOPICAL CREAM 30GM TUBE. TP SCH ×2 (09:00→21:21)
[2021-08-17] MEDS: APIXABAN 2.5 MG TABLET. PO SCH ×2 (09:12→21:21)
[2021-08-17] MEDS: LEVOTHYROXINE 175 MCG TABLET PO SCH (09:12)
[2021-08-17] MEDS: busPIRone 5 MG TABLET. PO SCH ×3 (09:12→21:21)
[2021-08-17] MEDS: CALCIUM ACETATE 667 MG CAPSULE PO SCH ×3 (09:13→17:26)
[2021-08-17] MEDS: AMIODARONE HCL 200 MG TABLET. PO SCH (09:13)
[2021-08-17] MEDS: DIVALPROEX EXTENDED RELEASE 250 MG TAB.ER.24H. PO SCH (09:13)
[2021-08-17] MEDS: ISOSORBIDE MONONITRATE ER 30 MG TAB.ER.24H PO SCH (09:14)
[2021-08-17] MEDS: MULTIVITAMIN with MINERAL TABLET. PO SCH (09:14)
[2021-08-17] MEDS: QUEtiapine 25 MG TABLET. PO SCH ×2 (09:14→21:21)
[2021-08-17] MEDS: DONEPEZIL HCL 10 MG TABLET. PO SCH (09:14)
[2021-08-17] MEDS: POLYVINYL ALCOHOL 1.4% OPHTH SOLUTION 15ML BOTTLE. OU SCH ×2 (09:15→21:20)
[2021-08-17] MEDS: METOPROLOL SUCC 24HR ER 25 MG TAB.ER.24H. PO SCH (09:15)
[2021-08-17 11:00] VITALS: BP 101/41
--- NOTE | 2021-08-17 12:04 | PDOC ---
Provider Note Date of Service: DATE: 08/17/21 TIME: 12:03 Provider Note status same, sleepy re meds- am cortisol pending, rest same- cont same care, follow K+, check acth/ may need acth stim test also Justifications for Admission Other Justification KARYN SMITH MD Aug 17, 2021 12:04
[2021-08-17 15:00] VITALS: BP 103/44
--- NOTE | 2021-08-17 15:42 | PDOC ---
DATE OF SERVICE DATE: 08/17/21 TIME: 15:40 SUBJECTIVE ROS States feeling much better and may go home No SOB, No N/V OBJECTIVE Vital Signs Vital Signs Date Time Temp Pulse Resp B/P (MAP) Pulse Ox O2 Delivery O2 Flow Rate FiO2 08/17/21 11:00 97.6 64 16 101/41 (61) 98 Room Air 97.6 I & 0 Intake and Output 08/17/21 07:00 Intake Total 480 ml Output Total 0 ml Balance 480 ml Intake Oral 480 ml Output Urine Total 0 ml PHYSICAL EXAM Physical Exam General NAD HEEN OM moist Neck Supple Lungs CTA B, Non labored CV RRR Abd Soft, NT , BS + Ext No LE edema No meza Neuro Grossly Normal Derm No Rash DIAGNOSIS/ASSESSMENT Assessment & Plan ESRD on HD at [facility] under Dr Metzger TTS , No indication for dialysis today Anemia- No indication for [place] Hx of Bipolar/Attention seeking behavior per Dr. Metzger's previous note- Hypotension -Improved . Adjust antihypertensives based on BP, defer to PCP COMMENT/RELEVANT DATA Meds Current Medications Medications (Trade) Dose Ordered Sig/Angeles Start Time Stop Time Status Last Admin Dose Admin Acetaminophen (Tylenol) 500 mg PRN Q6HRS PRN 08/14/21 08:00 Albumin Human 100 ml @ 100 mls/hr 1X ONCE 08/16/21 11:30 08/16/21 12:29 DC 08/16/21 11:30 100 MLS/HR Amiodarone HCl (Cordarone) 100 mg DAILY 08/14/21 09:00 08/17/21 09:13 100 MG Amlodipine Besylate (Norvasc) 5 mg DAILY 08/14/21 09:00 08/16/21 08:30 DC Apixaban (Eliquis) 2.5 mg BID 08/14/21 09:00 08/17/21 09:12 2.5 MG Atorvastatin Calcium (Lipitor) 20 mg HS 08/14/21 21:00 08/16/21 21:00 20 MG Benzonatate (Tessalon Perle) 200 mg PRN TID PRN 08/14/21 09:00 Buspirone HCl (Buspar) 5 mg TID 08/14/21 09:00 08/17/21 14:38 5 MG Calcium Acetate (Phoslo) 667 mg TIDWMEALS 08/14/21 12:00 10/3/21 12:38 667 MG Calcium Carbonate/ Glycine (Tums) 500 mg HS 08/14/21 22:37 08/16/21 20:47 500 MG Cetirizine HCl (ZyrTEC) 10 mg HS 08/14/21 21:00 08/16/21 21:00 10 MG Dextrose (Dextrose 50%-Water Syringe) 12.5 gm PRN Q15MIN PRN 08/14/21 08:15 Diphenhydramine HCl (Benadryl) 25 mg 1X PRN PRN 08/14/21 11:15 08/15/21 11:14 DC Divalproex Sodium (Depakote Er) 250 mg DAILY 08/14/21 09:00 08/17/21 09:13 250 MG Docusate Sodium (Colace) 100 mg PRN DAILY PRN 08/14/21 08:00 08/14/21 09:21 100 MG Donepezil HCl (Aricept) 10 mg DAILY 08/14/21 09:00 08/17/21 09:14 10 MG Ergocalciferol (Vitamin D2) 50,000 unit Th 08/14/21 09:00 08/14/21 09:07 50,000 UNIT Famotidine (Pepcid) 20 mg Q48H 08/14/21 09:00 08/16/21 09:18 20 MG Glycerin/ Hypromellose/ Polyethylene (Artificial Tears) 1 drop BID 08/14/21 09:00 08/17/21 09:15 1 DROP Guaifenesin (Robitussin Dm) 10 ml PRN Q6HRS PRN 08/14/21 09:15 Hydralazine HCl (Apresoline) 25 mg BID 08/14/21 09:00 08/16/21 08:30 DC Hydrocortisone (Cortaid) 1 alex BID 08/14/21 09:00 08/16/21 20:47 1 ALEX Info (PHARMACY MONITORING -- do not chart) 1 each PRN DAILY PRN 08/16/21 09:45 08/16/21 09:45 DC Insulin Glargine (Lantus Syringe) 18 unit QHS 08/14/21 21:00 08/16/21 20:57 18 UNIT Insulin Human Lispro (HumaLOG) 0-7 UNITS TIDWMEALS 08/14/21 12:00 08/17/21 12:44 3 UNITS Isosorbide Mononitrate (Imdur) 30 mg DAILY 08/14/21 09:00 08/17/21 09:14 30 MG Levothyroxine Sodium (Synthroid) 175 mcg DAILY06 08/14/21 09:00 08/17/21 09:12 175 MCG Loperamide HCl (Imodium) 2 mg PRN Q8HRS PRN 08/14/21 08:00 Metoprolol Succinate (Toprol Xl) 25 mg DAILY 08/14/21 09:00 08/17/21 09:15 25 MG Multivitamins (Thera M Plus) 1 tab DAILY 08/14/21 09:00 08/17/21 09:14 1 TAB Non-Formulary Medication (Melatonin ) 2 tab QHS 08/14/21 21:00 UNV Nystatin (Mycostatin) 1 alex PRN BID PRN 08/14/21 09:15 Ondansetron HCl (Zofran Odt) 4 mg PRN Q6HRS PRN 08/14/21 08:45 Potassium Chloride (Klor-Con) 10 meq DAILY 08/14/21 09:00 08/16/21 08:30 DC 08/15/21 08:13 10 MEQ Quetiapine Fumarate (SEROquel) 50 mg BID 08/14/21 09:00 08/17/21 09:14 50 MG Sodium Chloride 250 ml @ 250 mls/hr 1X ONCE 08/16/21 08:45 08/16/21 09:44 DC 08/16/21 09:30 250 MLS/HR Tramadol HCl (Ultram) 50 mg PRN Q8HRS PRN 08/14/21 08:00 Trazodone HCl (Desyrel) 50 mg PRN QHS PRN 08/14/21 08:00 08/15/21 20:21 50 MG Triamcinolone Acetonide (Kenalog 0.5%) 1 alex PRN BID PRN 08/14/21 09:15 Lab Laboratory Tests Test 08/16/21 17:06 08/17/21 07:47 08/17/21 12:31 Glucose (Fingerstick) 300 mg/dL (70-99) 137 mg/dL (70-99) 169 mg/dL (70-99) Results All relevant outside records, renal labs, imaging studies, telemetry/EKG's were reviewed. Justicifation of Admission Dx: Justifications for Admission: Justification of Admission Dx: Yes Acute Renal Failure: Serum Cr > 4mg/dL JUAN CARLOS SONI MD Aug 17, 2021 15:42
[2021-08-17 19:00] VITALS: BP 103/40
[2021-08-17] MEDS: CALCIUM CARBONATE 500 MG TAB.CHEW PO SCH (21:20)
[2021-08-17] MEDS: ATORVASTATIN CALCIUM 20 MG TABLET PO SCH (21:20)
[2021-08-17] MEDS: CETIRIZINE HCL 10 MG TABLET. PO SCH (21:21)
[2021-08-17] MEDS: INSULIN GLARGINE SYRINGE. SQ SCH (21:27)
[2021-08-17 23:06] VITALS: BP 108/37
[2021-08-18] MEDS: traZODone 50 MG TABLET. PO PRN (01:36)
[2021-08-18 03:09] VITALS: BP 118/44
[2021-08-18] MEDS: LEVOTHYROXINE 175 MCG TABLET PO SCH (06:19)
[2021-08-18 07:00] VITALS: BP 121/64
[2021-08-18] MEDS: INSULIN LISPRO 300 UNITS/3 ML VIAL. SQ SCH ×3 (07:39→16:32)
[2021-08-18] MEDS: CALCIUM ACETATE 667 MG CAPSULE PO SCH ×3 (08:11→16:31)
[2021-08-18] MEDS: HYDROCORTISONE 1% TOPICAL CREAM 30GM TUBE. TP SCH ×2 (10:02→21:13)
[2021-08-18] MEDS: DONEPEZIL HCL 10 MG TABLET. PO SCH (10:02)
[2021-08-18] MEDS: FAMOTIDINE 20 MG TABLET. PO SCH (10:02)
[2021-08-18] MEDS: POLYVINYL ALCOHOL 1.4% OPHTH SOLUTION 15ML BOTTLE. OU SCH ×2 (10:02→21:13)
[2021-08-18] MEDS: DIVALPROEX EXTENDED RELEASE 250 MG TAB.ER.24H. PO SCH (10:03)
[2021-08-18] MEDS: MULTIVITAMIN with MINERAL TABLET. PO SCH (10:03)
[2021-08-18] MEDS: busPIRone 5 MG TABLET. PO SCH ×3 (10:03→21:13)
[2021-08-18] MEDS: ISOSORBIDE MONONITRATE ER 30 MG TAB.ER.24H PO SCH (10:03)
[2021-08-18] MEDS: APIXABAN 2.5 MG TABLET. PO SCH ×2 (10:03→21:13)
[2021-08-18] MEDS: METOPROLOL SUCC 24HR ER 25 MG TAB.ER.24H. PO SCH (10:04)
[2021-08-18] MEDS: AMIODARONE HCL 200 MG TABLET. PO SCH (10:04)
[2021-08-18] MEDS: QUEtiapine 25 MG TABLET. PO SCH ×2 (10:04→21:13)
[2021-08-18 11:00] VITALS: BP 116/28
--- NOTE | 2021-08-18 11:09 | PDOC ---
DATE OF SERVICE DATE: 08/18/21 TIME: 11:09 SUBJECTIVE ROS Stable No SOB, No N/V OBJECTIVE Vital Signs Vital Signs Date Time Temp Pulse Resp B/P (MAP) Pulse Ox O2 Delivery O2 Flow Rate FiO2 08/18/21 10:04 67 121/64 08/18/21 08:12 Room Air 08/18/21 07:00 98.7 17 96 98.7 I & 0 Intake and Output 08/18/21 07:00 Output Total 0 ml Balance 0 ml Output Urine Total 0 ml PHYSICAL EXAM Physical Exam General NAD HEEN OM moist Neck Supple Lungs CTA B, Non labored CV RRR Abd Soft, NT , BS + Ext No LE edema No meza Neuro Grossly Normal Derm No Rash DIAGNOSIS/ASSESSMENT Assessment & Plan ESRD on HD at [facility] under Dr Metzger TTS , No indication for dialysis today . If dced resume dialysis tomorrow at the OP unit Anemia- No indication for [place] Hx of Bipolar/Attention seeking behavior per Dr. Metzger's previous note- Hypotension -Improved . Adjust antihypertensives based on BP, defer to PCP DC per primary COMMENT/RELEVANT DATA Meds Current Medications Medications (Trade) Dose Ordered Sig/Angeles Start Time Stop Time Status Last Admin Dose Admin Acetaminophen (Tylenol) 500 mg PRN Q6HRS PRN 08/14/21 08:00 Albumin Human 100 ml @ 100 mls/hr 1X ONCE 08/16/21 11:30 08/16/21 12:29 DC 08/16/21 11:30 100 MLS/HR Amiodarone HCl (Cordarone) 100 mg DAILY 08/14/21 09:00 08/18/21 10:04 100 MG Amlodipine Besylate (Norvasc) 5 mg DAILY 08/14/21 09:00 08/16/21 08:30 DC Apixaban (Eliquis) 2.5 mg BID 08/14/21 09:00 08/18/21 10:03 2.5 MG Atorvastatin Calcium (Lipitor) 20 mg HS 08/14/21 21:00 08/17/21 21:20 20 MG Benzonatate (Tessalon Perle) 200 mg PRN TID PRN 08/14/21 09:00 Buspirone HCl (Buspar) 5 mg TID 08/14/21 09:00 08/18/21 10:03 5 MG Calcium Acetate (Phoslo) 667 mg TIDWMEALS 08/14/21 12:00 08/18/21 08:11 667 MG Calcium Carbonate/ Glycine (Tums) 500 mg HS 08/14/21 22:37 08/17/21 21:20 500 MG Cetirizine HCl (ZyrTEC) 10 mg HS 08/14/21 21:00 08/17/21 21:21 10 MG Dextrose (Dextrose 50%-Water Syringe) 12.5 gm PRN Q15MIN PRN 08/14/21 08:15 Diphenhydramine HCl (Benadryl) 25 mg 1X PRN PRN 08/14/21 11:15 08/15/21 11:14 DC Divalproex Sodium (Depakote Er) 250 mg DAILY 08/14/21 09:00 08/18/21 10:03 250 MG Docusate Sodium (Colace) 100 mg PRN DAILY PRN 08/14/21 08:00 08/14/21 09:21 100 MG Donepezil HCl (Aricept) 10 mg DAILY 08/14/21 09:00 08/18/21 10:02 10 MG Ergocalciferol (Vitamin D2) 50,000 unit Th 08/14/21 09:00 08/14/21 09:07 50,000 UNIT Famotidine (Pepcid) 20 mg Q48H 08/14/21 09:00 08/18/21 10:02 20 MG Glycerin/ Hypromellose/ Polyethylene (Artificial Tears) 1 drop BID 08/14/21 09:00 08/18/21 10:02 1 DROP Guaifenesin (Robitussin Dm) 10 ml PRN Q6HRS PRN 08/14/21 09:15 Hydralazine HCl (Apresoline) 25 mg BID 08/14/21 09:00 08/16/21 08:30 DC Hydrocortisone (Cortaid) 1 alex BID 08/14/21 09:00 08/18/21 10:02 1 ALEX Info (PHARMACY MONITORING -- do not chart) 1 each PRN DAILY PRN 08/16/21 09:45 08/16/21 09:45 DC Insulin Glargine (Lantus Syringe) 18 unit QHS 08/14/21 21:00 08/17/21 21:27 18 UNIT Insulin Human Lispro (HumaLOG) 0-7 UNITS TIDWMEALS 08/14/21 12:00 08/17/21 17:28 4 UNITS Isosorbide Mononitrate (Imdur) 30 mg DAILY 08/14/21 09:00 08/18/21 10:03 30 MG Levothyroxine Sodium (Synthroid) 175 mcg DAILY06 08/14/21 09:00 08/18/21 06:19 175 MCG Loperamide HCl (Imodium) 2 mg PRN Q8HRS PRN 08/14/21 08:00 Metoprolol Succinate (Toprol Xl) 25 mg DAILY 08/14/21 09:00 08/18/21 10:04 25 MG Multivitamins (Thera M Plus) 1 tab DAILY 08/14/21 09:00 08/18/21 10:03 1 TAB Non-Formulary Medication (Melatonin ) 2 tab QHS 08/14/21 21:00 UNV Nystatin (Mycostatin) 1 alex PRN BID PRN 08/14/21 09:15 Ondansetron HCl (Zofran Odt) 4 mg PRN Q6HRS PRN 08/14/21 08:45 Potassium Chloride (Klor-Con) 10 meq DAILY 08/14/21 09:00 08/16/21 08:30 DC 08/15/21 08:13 10 MEQ Quetiapine Fumarate (SEROquel) 50 mg BID 08/14/21 09:00 08/18/21 10:04 50 MG Sodium Chloride 250 ml @ 250 mls/hr 1X ONCE 08/16/21 08:45 08/16/21 09:44 DC 08/16/21 09:30 250 MLS/HR Tramadol HCl (Ultram) 50 mg PRN Q8HRS PRN 08/14/21 08:00 Trazodone HCl (Desyrel) 50 mg PRN QHS PRN 08/14/21 08:00 08/18/21 01:36 50 MG Triamcinolone Acetonide (Kenalog 0.5%) 1 alex PRN BID PRN 08/14/21 09:15 Lab Laboratory Tests Test 08/17/21 12:31 08/17/21 17:02 08/17/21 20:22 08/18/21 07:33 Glucose (Fingerstick) 169 mg/dL (70-99) 231 mg/dL (70-99) 218 mg/dL (70-99) 122 mg/dL (70-99) Results All relevant outside records, renal labs, imaging studies, telemetry/EKG's were reviewed. Justicifation of Admission Dx: Justifications for Admission: Justification of Admission Dx: Yes Acute Renal Failure: Serum Cr > 4mg/dL JUAN CARLOS SONI MD Aug 18, 2021 11:09
--- NOTE | 2021-08-18 11:19 | NUR ---
SW following. Discussed with RN, pt from [place], room air, renal diet. COVID-19 negative. PT/OT ordered. Deandre consulted. Possible discharge back tomorrow (08/19/21). SW will continue to follow.
--- NOTE | 2021-08-18 12:09 | PN ---
DATE: 08/18/2021 DAILY PROGRESS NOTE LOCATION: She is in room 534. SUBJECTIVE: This 76-year-old female remains hospitalized with initially psychosis. This is improving with her back on her medical regimen. The hypotension Dictation Ends Here CARLITO DR: Katelynn TID: [id number]
--- NOTE | 2021-08-18 12:16 | PDOC2 ---
NEUROLOGY CONSULT Date of Service DOS: DATE: 08/18/21 TIME: 12:02 Reason for Consult Reason for Consult: Leg weakness Referring Physician Referring Physician: Dr. Reid Source Source: Chart review, Patient History of Present Illness History of Present Illness The patient is a 76-year-old right-handed female well-known to me with history of Alzheimer's disease and severe bipolar disorder. She was admitted on 08/13 from [facility] where she resides because of increased agitation. She had been refusing to take her medications. Patient complained today of bilateral leg pain and weakness. I last saw her 3 years ago in the hospital and in September 2020 in the office. Her leg pain and weakness are chronic, she has been getting around with a wheelchair for up to several years. I last saw her in the hospital for possible transient ischemic attack or even seizure, but full work-up including serial CT scans and electroencephalogram were negative. I felt that that represented metabolic encephalopathy. Past Medical History Cardiovascular: AFIB, CHF, HTN, Hyperlipidemia, Pulmonary hypertension, Other (Sick sinus) CENTRAL NERVOUS SYSTEM: Dementia, Periperal neuropathy GI: GERD, Peptic Ulcer disease Heme/Onc: Anemia NOS Psych: Anxiety, Bipolar, Depression Musculoskeletal: Osteoarthritis Renal/: Chronic renal failure (Dialysis) Endocrine: Diabetes, Hypothyroidism Past Surgical History Past Surgical History: Pacemaker, Hysterectomy Family History Family History: No pertinent hx Social History Social History , long-term resident, no alcohol or tobacco Current Medications Current Medications Current Medications Acetaminophen (Tylenol) 500 mg PRN Q6HRS PRN PO PAIN; Start 08/14/21 at 08:00 Amlodipine Besylate (Norvasc) 5 mg DAILY PO ; Start 08/14/21 at 09:00; Stop 08/16/21 at 08:30; Status DC Apixaban (Eliquis) 2.5 mg BID PO Last administered on 08/18/21at 10:03; Start 08/14/21 at 09:00 Atorvastatin Calcium (Lipitor) 20 mg HS PO Last administered on 08/17/21at 21:20; Start 08/14/21 at 21:00 Buspirone HCl (Buspar) 5 mg TID PO Last administered on 08/18/21at 10:03; Start 08/14/21 at 09:00 Cetirizine HCl (ZyrTEC) 10 mg HS PO Last administered on 08/17/21 21:21; Start 08/14/21 at 21:00 Divalproex Sodium (Depakote Er) 250 mg DAILY PO Last administered on 08/18/21at 10:03; Start 08/14/21 at 09:00 Docusate Sodium (Colace) 100 mg PRN DAILY PRN PO CONSTIPATION Last administered on 08/14/21 09:21; Start 08/14/21 at 08:00 Donepezil HCl (Aricept) 10 mg DAILY PO Last administered on 08/18/21at 10:02; Start 08/14/21 at 09:00 Ergocalciferol (Vitamin D2) 50,000 unit Th PO Last administered on 08/14/21 09:07; Start 08/14/21 at 09:00 Famotidine (Pepcid) 20 mg DAILY PO ; Start 08/14/21 at 09:00; Stop 08/14/21 at 08:39; Status DC Hydralazine HCl (Apresoline) 25 mg BID PO ; Start 08/14/21 at 09:00; Stop 08/16/21 at 08:30; Status DC Isosorbide Mononitrate (Imdur) 30 mg DAILY PO Last administered on 08/18/21at 10:03; Start 08/14/21 at 09:00 Levothyroxine Sodium (Synthroid) 175 mcg DAILY06 PO Last administered on 08/18/21at 06:19; Start 08/14/21 at 09:00 Loperamide HCl (Imodium) 2 mg PRN Q8HRS PRN PO DIARRHEA; Start 08/14/21 at 08:00 Metoprolol Succinate (Toprol Xl) 25 mg DAILY PO Last administered on 08/18/21at 10:04; Start 08/14/21 at 09:00 Potassium Chloride (Klor-Con) 10 meq DAILY PO Last administered on 08/15/21at 08:13; Start 08/14/21 at 09:00; Stop 08/16/21 at 08:30; Status DC Tramadol HCl (Ultram) 50 mg PRN Q8HRS PRN PO PAIN; Start 08/14/21 at 08:00 Trazodone HCl (Desyrel) 50 mg PRN QHS PRN PO INSOMNIA Last administered on 08/18/21at 01:36; Start 08/14/21 at 08:00 Amiodarone HCl (Cordarone) 100 mg DAILY PO Last administered on 08/18/21 10:04; Start 08/14/21 at 09:00 Benzonatate (Tessalon Perle) 200 mg PRN TID PRN PO COUGH; Start 08/14/21 at 09:00 Calcium Acetate (Phoslo) 667 mg TIDWMEALS PO Last administered on 08/18/21at 11:36; Start 08/14/21 at 12:00 Calcium Carbonate/ Glycine (Tums) 500 mg HS PO ; Start 08/14/21 at 21:00; Stop 08/14/21 at 22:37; Status DC Glycerin/ Hypromellose/ Polyethylene (Artificial Tears) 1 drop BID OU Last administered on 08/18/21 10:02; Start 08/14/21 at 09:00 Guaifenesin (Robitussin Dm) 10 ml PRN Q6HRS PRN PO COUGH; Start 08/14/21 at 09:15 Hydrocortisone (Cortaid) 1 jarvis BID TP Last administered on 08/18/21 10:02; Start 08/14/21 at 09:00 Insulin Glargine (Lantus Syringe) 18 unit QHS SQ Last administered on 08/17/21 21:27; Start 08/14/21 at 21:00 Non-Formulary Medication (Melatonin ) 2 tab QHS PO ; Start 08/14/21 at 21:00; Status UNV Multivitamins (Thera M Plus) 1 tab DAILY PO Last administered on 08/18/21at 10:03; Start 08/14/21 at 09:00 Triamcinolone Acetonide (Kenalog 0.5%) 1 jarvis PRN BID PRN TP REDNESS; Start 08/14/21 at 09:15 Ondansetron HCl (Zofran Odt) 4 mg PRN Q6HRS PRN PO NAUSEA/VOMITING; Start 08/14/21 at 08:45 Quetiapine Fumarate (SEROquel) 50 mg BID PO Last administered on 08/18/21 10:04; Start 08/14/21 at 09:00 Insulin Human Lispro (HumaLOG) 0-7 UNITS TIDWMEALS SQ Last administered on 08/18/21at 11:40; Start 08/14/21 at 12:00 Dextrose (Dextrose 50%-Water Syringe) 12.5 gm PRN Q15MIN PRN IV SEE COMMENTS; Start 08/14/21 at 08:15 Famotidine (Pepcid) 20 mg Q48H PO Last administered on 08/18/21at 10:02; Start 08/14/21 at 09:00 Nystatin (Mycostatin) 1 jarvis PRN BID PRN TP REDNESS; Start 08/14/21 at 09:15 Sodium Chloride 1,000 ml @ 1,000 mls/hr Q1H PRN IV hypotension; Start 08/14/21 at 11:15; Stop 08/14/21 at 17:14; Status DC Albumin Human 200 ml @ 200 mls/hr 1X PRN PRN IV Hypotension; Start 08/14/21 at 11:15; Stop 08/14/21 at 17:14; Status DC Diphenhydramine HCl (Benadryl) 25 mg 1X PRN PRN IV ITCHING; Start 08/14/21 at 11:15; Stop 08/15/21 at 11:14; Status DC Diphenhydramine HCl (Benadryl) 25 mg 1X PRN PRN IV ITCHING; Start 08/14/21 at 11:15; Stop 08/15/21 at 11:14; Status DC Sodium Chloride 1,000 ml @ 400 mls/hr Q2H30M PRN IV PATENCY; Start 08/14/21 at 11:15; Stop 08/14/21 at 23:14; Status DC Info (PHARMACY MONITORING -- do not chart) 1 each PRN DAILY PRN MC SEE COMMENTS; Start 08/14/21 at 11:15; Status UNV Info (PHARMACY MONITORING -- do not chart) 1 each PRN DAILY PRN MC SEE COMMENTS; Start 08/14/21 at 11:15; Stop 08/16/21 at 09:45; Status DC Calcium Carbonate/ Glycine (Tums) 500 mg HS PO Last administered on 08/17/21at 21:20; Start 08/14/21 at 22:37 Sodium Chloride 250 ml @ 250 mls/hr 1X ONCE IV Last administered on 08/16/21at 09:30; Start 08/16/21 at 08:45; Stop 08/16/21 at 09:44; Status DC Info (PHARMACY MONITORING -- do not chart) 1 each PRN DAILY PRN MC SEE COMMENTS; Start 08/16/21 at 09:45 Info (PHARMACY MONITORING -- do not chart) 1 each PRN DAILY PRN MC SEE COMMENTS; Start 08/16/21 at 09:45; Stop 08/16/21 at 09:45; Status DC Albumin Human 100 ml @ 100 mls/hr 1X ONCE IV Last administered on 08/16/21at 11:30; Start 08/16/21 at 11:30; Stop 08/16/21 at 12:29; Status DC Active Scripts Active Levsin-Sl (Hyoscyamine Sulfate) 0.125 Mg Tab.subl 0.125 Mg SL Q4-6HRS PRN Pepcid (Famotidine) 20 Mg Tablet 20 Mg PO BID Ondansetron Odt (Ondansetron) 4 Mg Tab.rapdis 1 Tab PO PRN Q6-8HRS PRN Reported Imodium A-D (Loperamide HCl) 2 Mg Capsule 2 Mg PO PRN Q8HRS PRN Amiodarone Hcl 100 Mg Tablet 1 Tab PO DAILY 30 Days Klor-Con 10 (Potassium Chloride) 10 Meq Tablet.er 10 Meq PO DAILY Promethazine-Dm Syrup (D-Methorphan Hb/Prometh Hcl) 118 Ml Syrup 5 Ml PO PRN Q6HRS PRN 6 Days Metoprolol Succinate ( Xl ) (Metoprolol Succinate) 25 Mg Tab.er.24h 1 Tab PO DAILY Levothyroxine Sodium 175 Mcg Tablet 1 Tab PO DAILY Lantus Solostar (Insulin Glargine,Hum.rec.anlog) 100 Unit/1 Ml Insuln.pen 18 Unit SQ QHS Eliquis (Apixaban) 2.5 Mg Tablet 2.5 Mg PO BID Atorvastatin Calcium 20 Mg Tablet 20 Mg PO HS Thera Tears (Carboxymethylcellulose Sodium) 15 Ml Drops 1 Drop EACHEYE BID Benzonatate 200 Mg Capsule 200 Mg PO TID PRN Hydralazine Hcl 25 Mg Tablet 25 Mg PO BID Acetaminophen 500 Mg Tablet 500 Mg PO PRN Q6HRS PRN Trazodone Hcl 50 Mg Tablet 50 Mg PO PRN QHS Tums (Calcium Carbonate) 300 Mg Tab.chew 500 Mg PO HS Zyrtec (Cetirizine Hcl) 10 Mg Tablet 10 Mg PO HS Zofran (Ondansetron Hcl) 4 Mg Tablet 1 Tab PO PRN Q6HRS Amlodipine Besylate 5 Mg Tablet 5 Mg PO DAILY take 1 tab every Sun, Mon, Wed, Fri Tramadol Hcl 50 Mg Tablet 50 Mg PO Q8HRS PRN Melatonin 3 Mg Tablet 2 Tab PO QHS Hydrocortisone 59 Ml Lotion 1 Jarvis TP BID Colace (Docusate Sodium) 100 Mg Capsule 1 Cap PO PRN DAILY PRN Calcium Acetate 667 Mg Tablet 667 Mg PO TIDWMEALS Buspirone Hcl 5 Mg Tablet 1 Tab PO TID Seroquel (Quetiapine Fumarate) 50 Mg Tablet 50 Mg PO BID Nystatin-Triamcinolone Cream (Nystatin/Triamcin) 15 Gm Cream..g. 1 Jarvis TP PRN PRN Depakote Er (Divalproex Sodium) 250 Mg Tab.er.24h 250 Mg PO DAILY Novolog Flexpen (Insulin Aspart) 100 Unit/1 Ml Insuln.pen 4 Unit SQ TIDWMEALS Vitamin D2 (Ergocalciferol (Vitamin D2)) 50,000 Unit Capsule 50,000 Unit PO DAILY Donepezil Hcl 10 Mg Tablet 10 Mg PO DAILY Isosorbide Mononitrate Er (Isosorbide Mononitrate) 30 Mg Tab.er.24h 1 Tab PO DAILY Multivitamins (Multivitamin) 1 Each Tablet 1 Tab PO DAILY Allergies Allergies: Coded Allergies: amoxicillin (Verified Allergy, Intermediate, 05/13/18) clavulanic acid (Verified Allergy, Intermediate, 05/13/18) ROS Review of System Not reliably obtained, but negative for fever, chills, weight loss, shortness of breath, chest pain, indigestion, hematochezia, melena, and dysuria. Full 14- point review of systems is negative. Physical Exam Physical Examination General: Well-developed, well-nourished white female in no acute distress HEENT: Normocephalic andatraumatic. Tympanic membranes clear.Temporal arteriespulsatile and nontender.Fundoscopic exam unremarkable Neck: Supple without bruit, no meningismus Musculoskeletal: Stability:see neurologic. Gait exam:see neurologic. Tone:see neurologic.Strength:see neurologic. Back: No particular point tenderness or muscle spasm. Neurological: Mental Status:orientation, memory, attention span/concentration, language, fund of knowledge: Does not know date or location, can tell me her name. Cranial Nerves:Pupils equal and reactive to light, extraocular movements areintact, visual trammell are full to confrontation. Facial sensation is normal. There is no facial asymmetry. Vestibulo-ocular reflex is intact. Palate elevates and tongue protrudes in midline. All other cranial related problems are negative except as mentioned before.Reflexes:1+ and symmetric with flexor plantar responses. Bilateral grasp reflexes. Motor:3-4/5 strength in arms, splints legs due to pain, with normal tone and bulk. Coordination and gait:Not cooperative. Sensor y: Stocking loss. Diffuse tenderness of the legs. Vitals VITALS Vital Signs Date Time Temp Pulse Resp B/P (MAP) Pulse Ox O2 Delivery O2 Flow Rate FiO2 08/18/21 10:04 67 121/64 08/18/21 08:12 Room Air 08/18/21 07:00 98.7 17 96 98.7 Labs Labs Laboratory Tests Test 08/16/21 14:17 08/16/21 17:06 08/17/21 07:47 08/17/21 12:31 Glucose (Fingerstick) 91 mg/dL (70-99) 300 mg/dL (70-99) 137 mg/dL (70-99) 169 mg/dL (70-99) Test 08/17/21 17:02 08/17/21 20:22 08/18/21 07:33 08/18/21 11:21 Glucose (Fingerstick) 231 mg/dL (70-99) 218 mg/dL (70-99) 122 mg/dL (70-99) 230 mg/dL (70-99) Laboratory Tests Test 08/17/21 12:31 08/17/21 17:02 08/17/21 20:22 08/18/21 07:33 Glucose (Fingerstick) 169 mg/dL (70-99) 231 mg/dL (70-99) 218 mg/dL (70-99) 122 mg/dL (70-99) Test 08/18/21 11:21 Glucose (Fingerstick) 230 mg/dL (70-99) Assessment/Plan Assessment/Plan Impression: Severe late-stage Alzheimer's disease as complicated by her chronic bipolar disorder Her leg problems are longstanding, she has been in a wheelchair for quite a long time. This is most likely a combination of musculoskeletal issues and her peripheral neuropathy Diabetic peripheral neuropathy Recommendations: Let us see if Dr. Kee can offer some trigger point injections to help with her pain. I will also consider adding on gabapentin, which according to her office chart, she has taken in the past. I do not believe she is a good candidate for any kind of lumbar surgery, and when to hold off on imaging of the spine. Thank you for letting me help with the patient's care. MAYCO RYAN MD Aug 18, 2021 12:15
[2021-08-18 15:00] VITALS: BP 105/42
[2021-08-18] MEDS ORDERED: methylPREDNISolone ACETATE 40 MG/ML VIAL. IM ONE (15:00)
[2021-08-18] MEDS ORDERED: BUPIVACAINE MPF 0.25% 10 ML VIAL. IJ ONE (15:00)
--- NOTE | 2021-08-18 16:03 | PN ---
DATE: 08/18/2021 LOCATION: She is in room 534. SUBJECTIVE: This 76-year-old female remains hospitalized with acute psychosis as well as unexplained hypotension. She is doing better in both of those regards and she is back to receiving her medicines that lower blood pressure. She, however, today complains of her legs weak and not working, particularly the right over the left and both feeling numb. OBJECTIVE: VITAL SIGNS: Stable. She is afebrile. GENERAL: She is awake and alert. CHEST: Clear. HEART: Regular. ABDOMEN: Benign. EXTREMITIES: She definitely has some leg weakness on resistance testing. ASSESSMENT: 1. Psychosis, improved with her back on her regular medications. 2. Hypotension, improved, still of uncertain etiology. 3. Diabetes with fair blood sugars. 4. Bilateral leg numbness, right greater than left, weakness perceived. We will get Neurology consultation for this. PLAN: Continue dialysis. Continue present medicines. Await Neurology consultation and add therapy as the patient normally is walking around the [facility] with her walker on a daily basis without difficulty. JULIANNE/ROCHELLE DR: Katelynn TID: [id number]
--- NOTE | 2021-08-18 16:21 | CONS ---
DATE OF CONSULTATION: 08/18/2021 LOCATION: She is in room 534. ATTENDING PHYSICIAN: Dr. Reid REASON FOR CONSULTATION: The patient was seen at the request of Dr. Reid for rehab evaluation. HISTORY OF PRESENT ILLNESS: This is a 76-year-old right-handed female patient who was admitted on 08/14/2021 with agitation, confusion, refusing to take medication for the entire week, not acting like herself, quite paranoid and bedside nursing staff at the care home are out to get her more of a psychotic type picture. The patient with known bipolar depression, congestive heart failure, anemia, anxiety, osteoarthritis of both knees, which is severe, diabetes, gastroesophageal reflux disease, hyperlipidemia, hypertension, hypothyroidism, end-stage renal disease on hemodialysis, sick sinus syndrome, status post permanent pacemaker placement, prior hysterectomy. THE PATIENT IS KNOWN ALLERGIC TO AUGMENTIN. She also admits lower back and knee joint pain, right side more than left side. The patient apparently has been getting up at the care home, last walked about a week ago. PHYSICAL EXAMINATION: On physical examination today revealed a middle-aged female. She is alert, oriented to place and person, follows commands appropriately. Slightly decreased acuity of hearing. The patient is protecting her lower extremity to some extent. Significant pain on range of motion on both knee joints with knee joint effusion and crepitus on range of motion. She had some tightness of heel cords bilaterally. The patient had tenderness to palpation over a sacroiliac joint area bilaterally. Straight leg raising test is negative bilaterally. Overall, muscle strength being 3/5-3+/5 grade. Deep tendon reflexes are decreased overall with absent knee and ankle jerks and she had equal perception of touch and pinprick sensation bilaterally. She requires help in rolling from side to side. I have not tested or transfers her ambulation skills at this time. Her skin is intact at this time. ASSESSMENT: Mobility and self-care limitation in a patient with painful degenerative joint disease of both knees and degenerative disk disease and degenerative joint disease of lumbar vertebrae without any clinical evidence of ongoing lumbar radiculopathy, clinical evidence of peripheral neuropathy in a patient with; 1. Diabetes mellitus. 2. End-stage renal disease on hemodialysis. 3. Hypertension. 4. Congestive heart failure. 5. Sick sinus syndrome, status post permanent pacemaker placement. 6. Bipolar depression with recent anxiety and psychosis, improved. 7. Anemia. 8. Hypothyroidism. RECOMMENDATIONS: To proceed with injecting painful right knee joint, which I performed under aseptic skin technique after skin preparation, using alcohol swab using 1 mL of Depo-Medrol 40 mg per 1 mL solution mixed with 2 mL of 0.25% Marcaine solution. After skin preparation, using alcohol swab to her right knee and she tolerated the procedure satisfactorily without any side effects. To obtain x-rays of her knees standing and to consider injecting left knee and also to sacroiliac joint area on as needed basis. Agree with the plan for physical therapy and occupational therapy. Dr. Reid appreciate asking me to participate in the care of this interesting patient. I will be glad to see her for followup with you on as needed basis. JUDY/KRUNAL DR: Kylah TID: [id number]
[2021-08-18 19:00] VITALS: BP 130/43
[2021-08-18] MEDS: CETIRIZINE HCL 10 MG TABLET. PO SCH (21:13)
[2021-08-18] MEDS: CALCIUM CARBONATE 500 MG TAB.CHEW PO SCH (21:13)
[2021-08-18] MEDS: ATORVASTATIN CALCIUM 20 MG TABLET PO SCH (21:13)
[2021-08-18] MEDS: INSULIN GLARGINE SYRINGE. SQ SCH (21:21)
[2021-08-18 23:31] VITALS: BP 140/51
[2021-08-19 03:34] VITALS: BP 132/46
[2021-08-19 07:00] VITALS: BP 155/51
[2021-08-19 07:21] LABS: CALCIUM 8.8 mg/dL (8.5-10.1); CREATININE 11.5 mg/dL (0.6-1.0); GFR 3.2
[2021-08-19 07:25] LABS: POTASSIUM 6.2 mmol/L (3.5-5.1)
--- NOTE | 2021-08-19 08:34 | PDOC ---
PROGRESS NOTES Date of Service DATE: 08/19/21 TIME: 08:31 Assessment Problems Medical Problems: (1) Acute psychosis Status: Acute (2) ESRD (end stage renal disease) Status: Acute (3) Medication noncompliance due to cognitive impairment Status: Acute Severe late-stage Alzheimer's disease as complicated by her chronic bipolar disorder Her leg problems are longstanding, she has been in a wheelchair for quite a long time. This is most likely a combination of musculoskeletal issues and her peripheral neuropathy Diabetic peripheral neuropathy Plan Appreciate Dr. Kee's help. Hold on gabapentin, risks outweigh benefits I do not believe she is a good candidate for any kind of lumbar surgery, holding off on imaging of the spine. Return to snf Subjective Denies pain Objective Vital Signs Date Time Temp Pulse Resp B/P (MAP) Pulse Ox O2 Delivery O2 Flow Rate FiO2 08/19/21 03:34 98.2 66 18 132/46 (74) 95 Room Air 98.2 Intake and Output 08/19/21 07:00 Intake Total 0 ml Balance 0 ml Intake Oral 0 ml PHYSICAL EXAM Sleeping, arouses easily, does not know date or location. PERRL. EOMI. CN: no focal findings. Muscle tone: normal. Muscle strength: 4/5 arms, 2-3/5 legs DTR: 1+ Plantar reflex: Flexor Bilateral grasp reflexes Gait: not examined in bed. Sensory exam: no abnormal findings. No cerebellar signs elicited. Musculoskeletal: No longer has diffuse leg tenderness, does have some right hip tenderness, no spinal tenderness Review of Relevant I have reviewed the following items connie (where applicable) has been applied. Labs Laboratory Tests Test 08/17/21 12:31 08/17/21 17:02 08/17/21 20:22 08/18/21 07:33 Glucose (Fingerstick) 169 mg/dL (70-99) 231 mg/dL (70-99) 218 mg/dL (70-99) 122 mg/dL (70-99) Test 08/18/21 11:21 08/18/21 16:28 08/18/21 20:13 08/19/21 05:50 Glucose (Fingerstick) 230 mg/dL (70-99) 197 mg/dL (70-99) 260 mg/dL (70-99) Sodium Level 132 mmol/L (136-145) Potassium Level 6.2 mmol/L (3.5-5.1) Chloride Level 94 mmol/L (98-107) Carbon Dioxide Level 23 mmol/L (21-32) Anion Gap 15 (6-14) Blood Urea Nitrogen 86 mg/dL (7-20) Creatinine 11.5 mg/dL (0.6-1.0) Estimated GFR (Cockcroft-Gault) 3.2 Glucose Level 352 mg/dL (70-99) Calcium Level 8.8 mg/dL (8.5-10.1) Test 08/19/21 07:33 Glucose (Fingerstick) 315 mg/dL (70-99) Laboratory Tests Test 08/18/21 11:21 08/18/21 16:28 08/18/21 20:13 08/19/21 05:50 Glucose (Fingerstick) 230 mg/dL (70-99) 197 mg/dL (70-99) 260 mg/dL (70-99) Sodium Level 132 mmol/L (136-145) Potassium Level 6.2 mmol/L (3.5-5.1) Chloride Level 94 mmol/L (98-107) Carbon Dioxide Level 23 mmol/L (21-32) Anion Gap 15 (6-14) Blood Urea Nitrogen 86 mg/dL (7-20) Creatinine 11.5 mg/dL (0.6-1.0) Estimated GFR (Cockcroft-Gault) 3.2 Glucose Level 352 mg/dL (70-99) Calcium Level 8.8 mg/dL (8.5-10.1) Test 08/19/21 07:33 Glucose (Fingerstick) 315 mg/dL (70-99) Medications Current Medications Acetaminophen (Tylenol) 500 mg PRN Q6HRS PRN PO PAIN; Start 08/14/21 at 08:00 Amlodipine Besylate (Norvasc) 5 mg DAILY PO ; Start 08/14/21 at 09:00; Stop 08/16/21 at 08:30; Status DC Apixaban (Eliquis) 2.5 mg BID PO Last administered on 08/18/21at 21:13; Start 08/14/21 at 09:00 Atorvastatin Calcium (Lipitor) 20 mg HS PO Last administered on 08/18/21at 21:13; Start 08/14/21 at 21:00 Buspirone HCl (Buspar) 5 mg TID PO Last administered on 08/18/21at 21:13; Start 08/14/21 at 09:00 Cetirizine HCl (ZyrTEC) 10 mg HS PO Last administered on 08/18/21at 21:13; Start 08/14/21 at 21:00 Divalproex Sodium (Depakote Er) 250 mg DAILY PO Last administered on 08/18/21at 10:03; Start 08/14/21 at 09:00 Docusate Sodium (Colace) 100 mg PRN DAILY PRN PO CONSTIPATION Last administered on 08/14/21at 09:21; Start 08/14/21 at 08:00 Donepezil HCl (Aricept) 10 mg DAILY PO Last administered on 08/18/21at 10:02; Start 08/14/21 at 09:00 Ergocalciferol (Vitamin D2) 50,000 unit Th PO Last administered on 08/14/21at 09:07; Start 08/14/21 at 09:00 Famotidine (Pepcid) 20 mg DAILY PO ; Start 08/14/21 at 09:00; Stop 08/14/21 at 08:39; Status DC Hydralazine HCl (Apresoline) 25 mg BID PO ; Start 08/14/21 at 09:00; Stop 08/16/21 at 08:30; Status DC Isosorbide Mononitrate (Imdur) 30 mg DAILY PO Last administered on 08/18/21at 10:03; Start 08/14/21 at 09:00 Levothyroxine Sodium (Synthroid) 175 mcg DAILY06 PO Last administered on 08/18/21at 06:19; Start 08/14/21 at 09:00 Loperamide HCl (Imodium) 2 mg PRN Q8HRS PRN PO DIARRHEA; Start 08/14/21 at 08:00 Metoprolol Succinate (Toprol Xl) 25 mg DAILY PO Last administered on 08/18/21at 10:04; Start 08/14/21 at 09:00 Potassium Chloride (Klor-Con) 10 meq DAILY PO Last administered on 08/15/21at 08:13; Start 08/14/21 at 09:00; Stop 08/16/21 at 08:30; Status DC Tramadol HCl (Ultram) 50 mg PRN Q8HRS PRN PO PAIN; Start 08/14/21 at 08:00 Trazodone HCl (Desyrel) 50 mg PRN QHS PRN PO INSOMNIA Last administered on 08/18/21at 01:36; Start 08/14/21 at 08:00 Amiodarone HCl (Cordarone) 100 mg DAILY PO Last administered on 08/18/21at 10:04; Start 08/14/21 at 09:00 Benzonatate (Tessalon Perle) 200 mg PRN TID PRN PO COUGH; Start 08/14/21 at 09:00 Calcium Acetate (Phoslo) 667 mg TIDWMEALS PO Last administered on 08/18/21at 16:31; Start 08/14/21 at 12:00 Calcium Carbonate/ Glycine (Tums) 500 mg HS PO ; Start 08/14/21 at 21:00; Stop 08/14/21 at 22:37; Status DC Glycerin/ Hypromellose/ Polyethylene (Artificial Tears) 1 drop BID OU Last administered on 08/18/21at 21:13; Start 08/14/21 at 09:00 Guaifenesin (Robitussin Dm) 10 ml PRN Q6HRS PRN PO COUGH; Start 08/14/21 at 09:15 Hydrocortisone (Cortaid) 1 jarvis BID TP Last administered on 08/18/21at 21:13; Start 08/14/21 at 09:00 Insulin Glargine (Lantus Syringe) 18 unit QHS SQ Last administered on 08/18/21at 21:21; Start 08/14/21 at 21:00 Non-Formulary Medication (Melatonin ) 2 tab QHS PO ; Start 08/14/21 at 21:00; Status UNV Multivitamins (Thera M Plus) 1 tab DAILY PO Last administered on 08/18/21at 10:03; Start 08/14/21 at 09:00 Triamcinolone Acetonide (Kenalog 0.5%) 1 jarvis PRN BID PRN TP REDNESS; Start 08/14/21 at 09:15 Ondansetron HCl (Zofran Odt) 4 mg PRN Q6HRS PRN PO NAUSEA/VOMITING; Start 08/14/21 at 08:45 Quetiapine Fumarate (SEROquel) 50 mg BID PO Last administered on 08/18/21at 21:13; Start 08/14/21 at 09:00 Insulin Human Lispro (HumaLOG) 0-7 UNITS TIDWMEALS SQ Last administered on 08/18/21at 16:32; Start 08/14/21 at 12:00 Dextrose (Dextrose 50%-Water Syringe) 12.5 gm PRN Q15MIN PRN IV SEE COMMENTS; Start 08/14/21 at 08:15 Famotidine (Pepcid) 20 mg Q48H PO Last administered on 08/18/21at 10:02; Start 08/14/21 at 09:00 Nystatin (Mycostatin) 1 jarvis PRN BID PRN TP REDNESS; Start 08/14/21 at 09:15 Sodium Chloride 1,000 ml @ 1,000 mls/hr Q1H PRN IV hypotension; Start 08/14/21 at 11:15; Stop 08/14/21 at 17:14; Status DC Albumin Human 200 ml @ 200 mls/hr 1X PRN PRN IV Hypotension; Start 08/14/21 at 11:15; Stop 08/14/21 at 17:14; Status DC Diphenhydramine HCl (Benadryl) 25 mg 1X PRN PRN IV ITCHING; Start 08/14/21 at 11:15; Stop 08/15/21 at 11:14; Status DC Diphenhydramine HCl (Benadryl) 25 mg 1X PRN PRN IV ITCHING; Start 08/14/21 at 11:15; Stop 08/15/21 at 11:14; Status DC Sodium Chloride 1,000 ml @ 400 mls/hr Q2H30M PRN IV PATENCY; Start 08/14/21 at 11:15; Stop 08/14/21 at 23:14; Status DC Info (PHARMACY MONITORING -- do not chart) 1 each PRN DAILY PRN MC SEE COMMENTS; Start 08/14/21 at 11:15; Status UNV Info (PHARMACY MONITORING -- do not chart) 1 each PRN DAILY PRN MC SEE COMMENTS; Start 08/14/21 at 11:15; Stop 08/16/21 at 09:45; Status DC Calcium Carbonate/ Glycine (Tums) 500 mg HS PO Last administered on 08/18/21at 21:13; Start 08/14/21 at 22:37 Sodium Chloride 250 ml @ 250 mls/hr 1X ONCE IV Last administered on 08/16/21at 09:30; Start 08/16/21 at 08:45; Stop 08/16/21 at 09:44; Status DC Info (PHARMACY MONITORING -- do not chart) 1 each PRN DAILY PRN MC SEE COMMENTS; Start 08/16/21 at 09:45 Info (PHARMACY MONITORING -- do not chart) 1 each PRN DAILY PRN MC SEE COMMENTS; Start 08/16/21 at 09:45; Stop 08/16/21 at 09:45; Status DC Albumin Human 100 ml @ 100 mls/hr 1X ONCE IV Last administered on 08/16/21at 11:30; Start 08/16/21 at 11:30; Stop 08/16/21 at 12:29; Status DC Methylprednisolone Acetate (DEPO-Medrol 40MG VIAL) 40 mg 1X ONCE IM Last administered on 08/18/21at 15:05; Start 08/18/21 at 15:00; Stop 08/18/21 at 15:01; Status DC Bupivacaine HCl (Sensorcaine-Mpf 0.25%) 10 ml 1X ONCE IJ Last administered on 08/18/21at 15:06; Start 08/18/21 at 15:00; Stop 08/18/21 at 15:01; Status DC Active Scripts Active Levsin-Sl (Hyoscyamine Sulfate) 0.125 Mg Tab.subl 0.125 Mg SL Q4-6HRS PRN Pepcid (Famotidine) 20 Mg Tablet 20 Mg PO BID Ondansetron Odt (Ondansetron) 4 Mg Tab.rapdis 1 Tab PO PRN Q6-8HRS PRN Reported Imodium A-D (Loperamide HCl) 2 Mg Capsule 2 Mg PO PRN Q8HRS PRN Amiodarone Hcl 100 Mg Tablet 1 Tab PO DAILY 30 Days Klor-Con 10 (Potassium Chloride) 10 Meq Tablet.er 10 Meq PO DAILY Promethazine-Dm Syrup (D-Methorphan Hb/Prometh Hcl) 118 Ml Syrup 5 Ml PO PRN Q6HRS PRN 6 Days Metoprolol Succinate ( Xl ) (Metoprolol Succinate) 25 Mg Tab.er.24h 1 Tab PO DAILY Levothyroxine Sodium 175 Mcg Tablet 1 Tab PO DAILY Lantus Solostar (Insulin Glargine,Hum.rec.anlog) 100 Unit/1 Ml Insuln.pen 18 Unit SQ QHS Eliquis (Apixaban) 2.5 Mg Tablet 2.5 Mg PO BID Atorvastatin Calcium 20 Mg Tablet 20 Mg PO HS Thera Tears (Carboxymethylcellulose Sodium) 15 Ml Drops 1 Drop EACHEYE BID Benzonatate 200 Mg Capsule 200 Mg PO TID PRN Hydralazine Hcl 25 Mg Tablet 25 Mg PO BID Acetaminophen 500 Mg Tablet 500 Mg PO PRN Q6HRS PRN Trazodone Hcl 50 Mg Tablet 50 Mg PO PRN QHS Tums (Calcium Carbonate) 300 Mg Tab.chew 500 Mg PO HS Zyrtec (Cetirizine Hcl) 10 Mg Tablet 10 Mg PO HS Zofran (Ondansetron Hcl) 4 Mg Tablet 1 Tab PO PRN Q6HRS Amlodipine Besylate 5 Mg Tablet 5 Mg PO DAILY take 1 tab every Sun, Mon, Wed, Fri Tramadol Hcl 50 Mg Tablet 50 Mg PO Q8HRS PRN Melatonin 3 Mg Tablet 2 Tab PO QHS Hydrocortisone 59 Ml Lotion 1 Jarvis TP BID Colace (Docusate Sodium) 100 Mg Capsule 1 Cap PO PRN DAILY PRN Calcium Acetate 667 Mg Tablet 667 Mg PO TIDWMEALS Buspirone Hcl 5 Mg Tablet 1 Tab PO TID Seroquel (Quetiapine Fumarate) 50 Mg Tablet 50 Mg PO BID Nystatin-Triamcinolone Cream (Nystatin/Triamcin) 15 Gm Cream..g. 1 Jarvis TP PRN PRN Depakote Er (Divalproex Sodium) 250 Mg Tab.er.24h 250 Mg PO DAILY Novolog Flexpen (Insulin Aspart) 100 Unit/1 Ml Insuln.pen 4 Unit SQ TIDWMEALS Vitamin D2 (Ergocalciferol (Vitamin D2)) 50,000 Unit Capsule 50,000 Unit PO DAILY Donepezil Hcl 10 Mg Tablet 10 Mg PO DAILY Isosorbide Mononitrate Er (Isosorbide Mononitrate) 30 Mg Tab.er.24h 1 Tab PO DAILY Multivitamins (Multivitamin) 1 Each Tablet 1 Tab PO DAILY Vitals/I & O Vital Sign - Last 24 Hours 08/18/21 08/18/21 08/18/21 08/18/21 10:03 10:04 10:04 11:00 Temp 99.1 99.1 Pulse 67 67 67 66 Resp 17 B/P (MAP) 121/64 121/64 121/64 116/28 (57) Pulse Ox 98 O2 Delivery Room Air 08/18/21 08/18/21 08/18/21 08/19/21 15:00 19:00 23:31 03:34 Temp 98.7 98.7 98.8 98.2 98.7 98.7 98.8 98.2 Pulse 71 64 60 66 Resp 18 16 18 18 B/P (MAP) 105/42 (63) 130/43 (72) 140/51 (80) 132/46 (74) Pulse Ox 99 97 96 95 O2 Delivery Room Air Room Air Room Air Room Air Intake and Output 08/18/21 08/18/21 08/19/21 15:00 23:00 07:00 Intake Total 0 ml Balance 0 ml Justicifation of Admission Dx: Justifications for Admission: Justification of Admission Dx: Yes Acute Renal Failure: Serum Cr > 4mg/dL MAYCO RYAN MD Aug 19, 2021 08:34
--- NOTE | 2021-08-19 08:40 | PN ---
DATE: 08/19/2021 LOCATION: She is in room 534. SUBJECTIVE: This 76-year-old female remains hospitalized with acute psychosis as well as unexplained hypotension. She is doing much better in both of these regards. She is resting comfortably. Presently, her potassium has increased this morning at 6.2 but has dialysis scheduled. I cannot see when therapy saw her yesterday despite the same being ordered. OBJECTIVE: VITAL SIGNS: Stable. She is afebrile. GENERAL: She is awake, alert. CHEST: Clear. HEART: Regular. ABDOMEN: Benign. NEUROLOGIC: Neuro consult as well as physical rehabilitation appreciated. IMPRESSION: 1. Psychosis, improved with back on her regular medications. 2. Hypotension, improved, but of uncertain etiology. 3. Diabetes with fair blood sugars. 4. Bilateral leg numbness, right greater than left weakness with evaluation undergoing. PLAN: Continue dialysis for the potassium. Wait and see at this point in time what rehabilitation services as far as therapy says as far as her disposition. When I saw her, noted somewhere that she is normally in a wheelchair. The patient is not as I see her walking up and down the halls at the [facility] on a regular basis. JEREMY DR: Katelynn TID: [id number]
[2021-08-19] MEDS ORDERED: IV NORMAL SALINE 1000ML BAG 1,000 ML IV PRN ×2 (08:45)
[2021-08-19] MEDS ORDERED: DIALYSIS PATIENT. MC PRN (08:45)
[2021-08-19] MEDS: INSULIN LISPRO 300 UNITS/3 ML VIAL. SQ SCH ×3 (08:59→17:47)
[2021-08-19] MEDS: POLYVINYL ALCOHOL 1.4% OPHTH SOLUTION 15ML BOTTLE. OU SCH ×2 (08:59→21:27)
[2021-08-19] MEDS: CALCIUM ACETATE 667 MG CAPSULE PO SCH ×3 (09:00→17:42)
[2021-08-19] MEDS: HYDROCORTISONE 1% TOPICAL CREAM 30GM TUBE. TP SCH ×2 (09:00→21:27)
[2021-08-19] MEDS: busPIRone 5 MG TABLET. PO SCH ×3 (09:00→21:27)
[2021-08-19] MEDS: QUEtiapine 25 MG TABLET. PO SCH ×2 (09:01→21:27)
[2021-08-19] MEDS: ISOSORBIDE MONONITRATE ER 30 MG TAB.ER.24H PO SCH (09:01)
[2021-08-19] MEDS: AMIODARONE HCL 200 MG TABLET. PO SCH (09:02)
[2021-08-19] MEDS: APIXABAN 2.5 MG TABLET. PO SCH ×2 (09:02→21:27)
[2021-08-19] MEDS: LEVOTHYROXINE 175 MCG TABLET PO SCH (09:03)
[2021-08-19] MEDS: DONEPEZIL HCL 10 MG TABLET. PO SCH (09:03)
[2021-08-19] MEDS: MULTIVITAMIN with MINERAL TABLET. PO SCH (09:04)
[2021-08-19] MEDS: DIVALPROEX EXTENDED RELEASE 250 MG TAB.ER.24H. PO SCH (09:04)
--- NOTE | 2021-08-19 09:45 | PDOC ---
PROGRESS NOTES Date of Service DATE: 08/19/21 TIME: 09:35 Subjective Subjective She admits right knee joint pain is less and wants her left knee joint injected. Objective Objective Vital Signs Date Time Temp Pulse Resp B/P (MAP) Pulse Ox O2 Delivery O2 Flow Rate FiO2 08/19/21 09:02 57 155/51 08/19/21 07:00 96.7 18 96 Room Air 96.7 Intake and Output 08/19/21 07:00 Intake Total 0 ml Balance 0 ml Intake Oral 0 ml Physical Exam Physical Exam She is supine in bed and seems to be comfortable,alert and continues with painfully limited knee joint and lumbar spine ROM with knee joint effusion and tenderness to palpation over sacroiliac joints and medial and lateral knee joint lines and knee joint effusion and some tightness of her heel cords. All of this and her peripheral neuropathy are contributing to her present mobility limitations. Assessment Assessment Problems Medical Problems: (1) Acute psychosis Status: Acute (2) ESRD (end stage renal disease) Status: Acute (3) Medication noncompliance due to cognitive impairment Status: Acute Plan Plan of Care To hold off left knee injection as her blood sugar is 315 and I gave her a prescription for hinge knee braces for he rto use while up and she admits that she had back support already. Comment Review of Relevant I have reviewed the following items connie (where applicable) has been applied. Labs Laboratory Tests Test 08/17/21 12:31 08/17/21 17:02 08/17/21 20:22 08/18/21 07:33 Glucose (Fingerstick) 169 mg/dL (70-99) 231 mg/dL (70-99) 218 mg/dL (70-99) 122 mg/dL (70-99) Test 08/18/21 11:21 08/18/21 16:28 08/18/21 20:13 08/19/21 05:50 Glucose (Fingerstick) 230 mg/dL (70-99) 197 mg/dL (70-99) 260 mg/dL (70-99) Sodium Level 132 mmol/L (136-145) Potassium Level 6.2 mmol/L (3.5-5.1) Chloride Level 94 mmol/L (98-107) Carbon Dioxide Level 23 mmol/L (21-32) Anion Gap 15 (6-14) Blood Urea Nitrogen 86 mg/dL (7-20) Creatinine 11.5 mg/dL (0.6-1.0) Estimated GFR (Cockcroft-Gault) 3.2 Glucose Level 352 mg/dL (70-99) Calcium Level 8.8 mg/dL (8.5-10.1) Test 08/19/21 07:33 Glucose (Fingerstick) 315 mg/dL (70-99) Laboratory Tests Test 08/18/21 11:21 08/18/21 16:28 08/18/21 20:13 08/19/21 05:50 Glucose (Fingerstick) 230 mg/dL (70-99) 197 mg/dL (70-99) 260 mg/dL (70-99) Sodium Level 132 mmol/L (136-145) Potassium Level 6.2 mmol/L (3.5-5.1) Chloride Level 94 mmol/L (98-107) Carbon Dioxide Level 23 mmol/L (21-32) Anion Gap 15 (6-14) Blood Urea Nitrogen 86 mg/dL (7-20) Creatinine 11.5 mg/dL (0.6-1.0) Estimated GFR (Cockcroft-Gault) 3.2 Glucose Level 352 mg/dL (70-99) Calcium Level 8.8 mg/dL (8.5-10.1) Test 08/19/21 07:33 Glucose (Fingerstick) 315 mg/dL (70-99) Medications Current Medications Acetaminophen (Tylenol) 500 mg PRN Q6HRS PRN PO PAIN; Start 08/14/21 at 08:00 Amlodipine Besylate (Norvasc) 5 mg DAILY PO ; Start 08/14/21 at 09:00; Stop 1 at 08:30; Status DC Apixaban (Eliquis) 2.5 mg BID PO Last administered on 08/19/21at 09:02; Start 08/14/21 at 09:00 Atorvastatin Calcium (Lipitor) 20 mg HS PO Last administered on 08/18/21at 21:13; Start 08/14/21 at 21:00 Buspirone HCl (Buspar) 5 mg TID PO Last administered on 08/19/21at 09:00; Start 08/14/21 at 09:00 Cetirizine HCl (ZyrTEC) 10 mg HS PO Last administered on 08/18/21at 21:13; Start 08/14/21 at 21:00 Divalproex Sodium (Depakote Er) 250 mg DAILY PO Last administered on 08/19/21at 09:04; Start 08/14/21 at 09:00 Docusate Sodium (Colace) 100 mg PRN DAILY PRN PO CONSTIPATION Last administered on 08/14/21at 09:21; Start 08/14/21 at 08:00 Donepezil HCl (Aricept) 10 mg DAILY PO Last administered on 08/19/21at 09:03; Start 08/14/21 at 09:00 Ergocalciferol (Vitamin D2) 50,000 unit Th PO Last administered on 08/14/21at 09:07; Start 08/14/21 at 09:00 Famotidine (Pepcid) 20 mg DAILY PO ; Start 08/14/21 at 09:00; Stop 08/14/21 at 08:39; Status DC Hydralazine HCl (Apresoline) 25 mg BID PO ; Start 08/14/21 at 09:00; Stop 08/16/21 at 08:30; Status DC Isosorbide Mononitrate (Imdur) 30 mg DAILY PO Last administered on 08/19/21at 09:01; Start 08/14/21 at 09:00 Levothyroxine Sodium (Synthroid) 175 mcg DAILY06 PO Last administered on 08/19/21at 09:03; Start 08/14/21 at 09:00 Loperamide HCl (Imodium) 2 mg PRN Q8HRS PRN PO DIARRHEA; Start 08/14/21 at 08:00 Metoprolol Succinate (Toprol Xl) 25 mg DAILY PO Last administered on 08/18/21at 10:04; Start 08/14/21 at 09:00 Potassium Chloride (Klor-Con) 10 meq DAILY PO Last administered on 08/15/21at 08:13; Start 08/14/21 at 09:00; Stop 08/16/21 at 08:30; Status DC Tramadol HCl (Ultram) 50 mg PRN Q8HRS PRN PO PAIN; Start 08/14/21 at 08:00 Trazodone HCl (Desyrel) 50 mg PRN QHS PRN PO INSOMNIA Last administered on 01:36; Start 08/14/21 at 08:00 Amiodarone HCl (Cordarone) 100 mg DAILY PO Last administered on 08/19/21 09:02; Start 08/14/21 at 09:00 Benzonatate (Tessalon Perle) 200 mg PRN TID PRN PO COUGH; Start 08/14/21 at 09:00 Calcium Acetate (Phoslo) 667 mg TIDWMEALS PO Last administered on 08/19/21at 09:00; Start 08/14/21 at 12:00 Calcium Carbonate/ Glycine (Tums) 500 mg HS PO ; Start 08/14/21 at 21:00; Stop 08/14/21 at 22:37; Status DC Glycerin/ Hypromellose/ Polyethylene (Artificial Tears) 1 drop BID OU Last administered on 08/19/21 08:59; Start 08/14/21 at 09:00 Guaifenesin (Robitussin Dm) 10 ml PRN Q6HRS PRN PO COUGH; Start 08/14/21 at 09:15 Hydrocortisone (Cortaid) 1 jarvis BID TP Last administered on 08/18/21at 21:13; Start 08/14/21 at 09:00 Insulin Glargine (Lantus Syringe) 18 unit QHS SQ Last administered on 08/18/21 21:21; Start 08/14/21 at 21:00 Non-Formulary Medication (Melatonin ) 2 tab QHS PO ; Start 08/14/21 at 21:00; Status UNV Multivitamins (Thera M Plus) 1 tab DAILY PO Last administered on 08/19/21at 09:04; Start 08/14/21 at 09:00 Triamcinolone Acetonide (Kenalog 0.5%) 1 jarvis PRN BID PRN TP REDNESS; Start 08/14/21 at 09:15 Ondansetron HCl (Zofran Odt) 4 mg PRN Q6HRS PRN PO NAUSEA/VOMITING; Start 08/14/21 at 08:45 Quetiapine Fumarate (SEROquel) 50 mg BID PO Last administered on 08/19/21 09:01; Start 08/14/21 at 09:00 Insulin Human Lispro (HumaLOG) 0-7 UNITS TIDWMEALS SQ Last administered on 10/5/21at 08:59; Start 08/14/21 at 12:00 Dextrose (Dextrose 50%-Water Syringe) 12.5 gm PRN Q15MIN PRN IV SEE COMMENTS; Start 08/14/21 at 08:15 Famotidine (Pepcid) 20 mg Q48H PO Last administered on 08/18/21at 10:02; Start 08/14/21 at 09:00 Nystatin (Mycostatin) 1 jarvis PRN BID PRN TP REDNESS; Start 08/14/21 at 09:15 Sodium Chloride 1,000 ml @ 1,000 mls/hr Q1H PRN IV hypotension; Start 08/14/21 at 11:15; Stop 08/14/21 at 17:14; Status DC Albumin Human 200 ml @ 200 mls/hr 1X PRN PRN IV Hypotension; Start 08/14/21 at 11:15; Stop 08/14/21 at 17:14; Status DC Diphenhydramine HCl (Benadryl) 25 mg 1X PRN PRN IV ITCHING; Start 08/14/21 at 11:15; Stop 08/15/21 at 11:14; Status DC Diphenhydramine HCl (Benadryl) 25 mg 1X PRN PRN IV ITCHING; Start 08/14/21 at 11:15; Stop 08/15/21 at 11:14; Status DC Sodium Chloride 1,000 ml @ 400 mls/hr Q2H30M PRN IV PATENCY; Start 08/14/21 at 11:15; Stop 08/14/21 at 23:14; Status DC Info (PHARMACY MONITORING -- do not chart) 1 each PRN DAILY PRN MC SEE COMMENTS; Start 08/14/21 at 11:15; Status UNV Info (PHARMACY MONITORING -- do not chart) 1 each PRN DAILY PRN MC SEE COMMENTS; Start 08/14/21 at 11:15; Stop 08/16/21 at 09:45; Status DC Calcium Carbonate/ Glycine (Tums) 500 mg HS PO Last administered on 08/18/21at 21:13; Start 08/14/21 at 22:37 Sodium Chloride 250 ml @ 250 mls/hr 1X ONCE IV Last administered on 08/16/21at 09:30; Start 08/16/21 at 08:45; Stop 08/16/21 at 09:44; Status DC Info (PHARMACY MONITORING -- do not chart) 1 each PRN DAILY PRN MC SEE COMMENTS; Start 08/16/21 at 09:45; Status Cancel Info (PHARMACY MONITORING -- do not chart) 1 each PRN DAILY PRN MC SEE COMMENTS; Start 08/16/21 at 09:45; Stop 08/16/21 at 09:45; Status DC Albumin Human 100 ml @ 100 mls/hr 1X ONCE IV Last administered on 08/16/21at 11:30; Start 08/16/21 at 11:30; Stop 08/16/21 at 12:29; Status DC Methylprednisolone Acetate (DEPO-Medrol 40MG VIAL) 40 mg 1X ONCE IM Last administered on 08/18/21at 15:05; Start 08/18/21 at 15:00; Stop 08/18/21 at 15:01; Status DC Bupivacaine HCl (Sensorcaine-Mpf 0.25%) 10 ml 1X ONCE IJ Last administered on 08/18/21at 15:06; Start 08/18/21 at 15:00; Stop 08/18/21 at 15:01; Status DC Sodium Chloride 1,000 ml @ 1,000 mls/hr Q1H PRN IV hypotension; Start 08/19/21 at 08:45; Stop 08/19/21 at 14:44 Sodium Chloride 1,000 ml @ 400 mls/hr Q2H30M PRN IV PATENCY; Start 08/19/21 at 08:45; Stop 08/19/21 at 20:44 Info (PHARMACY MONITORING -- do not chart) 1 each PRN DAILY PRN MC SEE COMMENTS; Start 08/19/21 at 08:45 Active Scripts Active Levsin-Sl (Hyoscyamine Sulfate) 0.125 Mg Tab.subl 0.125 Mg SL Q4-6HRS PRN Pepcid (Famotidine) 20 Mg Tablet 20 Mg PO BID Ondansetron Odt (Ondansetron) 4 Mg Tab.rapdis 1 Tab PO PRN Q6-8HRS PRN Reported Imodium A-D (Loperamide HCl) 2 Mg Capsule 2 Mg PO PRN Q8HRS PRN Amiodarone Hcl 100 Mg Tablet 1 Tab PO DAILY 30 Days Klor-Con 10 (Potassium Chloride) 10 Meq Tablet.er 10 Meq PO DAILY Promethazine-Dm Syrup (D-Methorphan Hb/Prometh Hcl) 118 Ml Syrup 5 Ml PO PRN Q6HRS PRN 6 Days Metoprolol Succinate ( Xl ) (Metoprolol Succinate) 25 Mg Tab.er.24h 1 Tab PO DAILY Levothyroxine Sodium 175 Mcg Tablet 1 Tab PO DAILY Lantus Solostar (Insulin Glargine,Hum.rec.anlog) 100 Unit/1 Ml Insuln.pen 18 Unit SQ QHS Eliquis (Apixaban) 2.5 Mg Tablet 2.5 Mg PO BID Atorvastatin Calcium 20 Mg Tablet 20 Mg PO HS Thera Tears (Carboxymethylcellulose Sodium) 15 Ml Drops 1 Drop EACHEYE BID Benzonatate 200 Mg Capsule 200 Mg PO TID PRN Hydralazine Hcl 25 Mg Tablet 25 Mg PO BID Acetaminophen 500 Mg Tablet 500 Mg PO PRN Q6HRS PRN Trazodone Hcl 50 Mg Tablet 50 Mg PO PRN QHS Tums (Calcium Carbonate) 300 Mg Tab.chew 500 Mg PO HS Zyrtec (Cetirizine Hcl) 10 Mg Tablet 10 Mg PO HS Zofran (Ondansetron Hcl) 4 Mg Tablet 1 Tab PO PRN Q6HRS Amlodipine Besylate 5 Mg Tablet 5 Mg PO DAILY take 1 tab every Sun, Mon, Wed, Fri Tramadol Hcl 50 Mg Tablet 50 Mg PO Q8HRS PRN Melatonin 3 Mg Tablet 2 Tab PO QHS Hydrocortisone 59 Ml Lotion 1 Jarvis TP BID Colace (Docusate Sodium) 100 Mg Capsule 1 Cap PO PRN DAILY PRN Calcium Acetate 667 Mg Tablet 667 Mg PO TIDWMEALS Buspirone Hcl 5 Mg Tablet 1 Tab PO TID Seroquel (Quetiapine Fumarate) 50 Mg Tablet 50 Mg PO BID Nystatin-Triamcinolone Cream (Nystatin/Triamcin) 15 Gm Cream..g. 1 Jarvis TP PRN PRN Depakote Er (Divalproex Sodium) 250 Mg Tab.er.24h 250 Mg PO DAILY Novolog Flexpen (Insulin Aspart) 100 Unit/1 Ml Insuln.pen 4 Unit SQ TIDWMEALS Vitamin D2 (Ergocalciferol (Vitamin D2)) 50,000 Unit Capsule 50,000 Unit PO DAILY Donepezil Hcl 10 Mg Tablet 10 Mg PO DAILY Isosorbide Mononitrate Er (Isosorbide Mononitrate) 30 Mg Tab.er.24h 1 Tab PO DAILY Multivitamins (Multivitamin) 1 Each Tablet 1 Tab PO DAILY Vitals/I & O Vital Sign - Last 24 Hours 08/18/21 08/18/21 08/18/21 08/18/21 10:03 10:04 10:04 11:00 Temp 99.1 99.1 Pulse 67 67 67 66 Resp 17 B/P (MAP) 121/64 121/64 121/64 116/28 (57) Pulse Ox 98 O2 Delivery Room Air 08/18/21 08/18/21 08/18/21 08/19/21 15:00 19:00 23:31 03:34 Temp 98.7 98.7 98.8 98.2 98.7 98.7 98.8 98.2 Pulse 71 64 60 66 Resp 18 16 18 18 B/P (MAP) 105/42 (63) 130/43 (72) 140/51 (80) 132/46 (74) Pulse Ox 99 97 96 95 O2 Delivery Room Air Room Air Room Air Room Air 08/19/21 08/19/21 08/19/21 07:00 09:01 09:02 Temp 96.7 96.7 Pulse 57 57 57 Resp 18 B/P (MAP) 155/51 (85) 155/51 155/51 Pulse Ox 96 O2 Delivery Room Air Intake and Output 08/18/21 08/18/21 08/19/21 15:00 23:00 07:00 Intake Total 0 ml Balance 0 ml Justifications for Admission Other Justification SARAH ZNUIGA MD Aug 19, 2021 09:45
--- NOTE | 2021-08-19 09:55 | PDOC ---
DATE OF SERVICE DATE: 08/19/21 TIME: 09:54 SUBJECTIVE ROS Seen during dialysis, Stable . No SOB, No N/V OBJECTIVE Vital Signs Vital Signs Date Time Temp Pulse Resp B/P (MAP) Pulse Ox O2 Delivery O2 Flow Rate FiO2 08/19/21 09:02 57 155/51 08/19/21 07:00 96.7 18 96 Room Air 96.7 I & 0 Intake and Output 08/19/21 07:00 Intake Total 0 ml Balance 0 ml Intake Oral 0 ml PHYSICAL EXAM Physical Exam General NAD HEEN OM moist Neck Supple Lungs CTA B, Non labored CV RRR Abd Soft, NT , BS + Ext No LE edema No meza Neuro Grossly Normal Derm No Rash DIAGNOSIS/ASSESSMENT Assessment & Plan ESRD on HD at [facility] under Dr Meena SMIS ,Seen during treatment , tolerating well , continue as ordered, Skyler BARTH Anemia- No indication for [place] Hx of Bipolar/Attention seeking behavior per Dr. Metzger's previous note- Hypotension -Improved . Adjust antihypertensives based on BP, defer to PCP DC per primary COMMENT/RELEVANT DATA Meds Current Medications Medications (Trade) Dose Ordered Sig/Angeles Start Time Stop Time Status Last Admin Dose Admin Acetaminophen (Tylenol) 500 mg PRN Q6HRS PRN 08/14/21 08:00 Albumin Human 100 ml @ 100 mls/hr 1X ONCE 08/16/21 11:30 08/16/21 12:29 DC 08/16/21 11:30 100 MLS/HR Amiodarone HCl (Cordarone) 100 mg DAILY 08/14/21 09:00 08/19/21 09:02 100 MG Amlodipine Besylate (Norvasc) 5 mg DAILY 08/14/21 09:00 08/16/21 08:30 DC Apixaban (Eliquis) 2.5 mg BID 08/14/21 09:00 08/19/21 09:02 2.5 MG Atorvastatin Calcium (Lipitor) 20 mg HS 08/14/21 21:00 08/18/21 21:13 20 MG Benzonatate (Tessalon Perle) 200 mg PRN TID PRN 08/14/21 09:00 Bupivacaine HCl (Sensorcaine-Mpf 0.25%) 10 ml 1X ONCE 08/18/21 15:00 08/18/21 15:01 DC 08/18/21 15:06 10 ML Buspirone HCl (Buspar) 5 mg TID 08/14/21 09:00 08/19/21 09:00 5 MG Calcium Acetate (Phoslo) 667 mg TIDWMEALS 08/14/21 12:00 08/19/21 09:00 667 MG Calcium Carbonate/ Glycine (Tums) 500 mg HS 08/14/21 22:37 08/18/21 21:13 500 MG Cetirizine HCl (ZyrTEC) 10 mg HS 08/14/21 21:00 08/18/21 21:13 10 MG Dextrose (Dextrose 50%-Water Syringe) 12.5 gm PRN Q15MIN PRN 08/14/21 08:15 Diphenhydramine HCl (Benadryl) 25 mg 1X PRN PRN 08/14/21 11:15 08/15/21 11:14 DC Divalproex Sodium (Depakote Er) 250 mg DAILY 08/14/21 09:00 08/19/21 09:04 250 MG Docusate Sodium (Colace) 100 mg PRN DAILY PRN 08/14/21 08:00 08/14/21 09:21 100 MG Donepezil HCl (Aricept) 10 mg DAILY 08/14/21 09:00 08/19/21 09:03 10 MG Ergocalciferol (Vitamin D2) 50,000 unit Th 08/14/21 09:00 08/14/21 09:07 50,000 UNIT Famotidine (Pepcid) 20 mg Q48H 08/14/21 09:00 08/18/21 10:02 20 MG Glycerin/ Hypromellose/ Polyethylene (Artificial Tears) 1 drop BID 08/14/21 09:00 08/19/21 08:59 1 DROP Guaifenesin (Robitussin Dm) 10 ml PRN Q6HRS PRN 08/14/21 09:15 Hydralazine HCl (Apresoline) 25 mg BID 08/14/21 09:00 08/16/21 08:30 DC Hydrocortisone (Cortaid) 1 alex BID 08/14/21 09:00 08/18/21 21:13 1 ALEX Info (PHARMACY MONITORING -- do not chart) 1 each PRN DAILY PRN 08/19/21 08:45 Insulin Glargine (Lantus Syringe) 18 unit QHS 08/14/21 21:00 08/18/21 21:21 18 UNIT Insulin Human Lispro (HumaLOG) 0-7 UNITS TIDWMEALS 08/14/21 12:00 08/19/21 08:59 7 UNITS Isosorbide Mononitrate (Imdur) 30 mg DAILY 08/14/21 09:00 08/19/21 09:01 30 MG Levothyroxine Sodium (Synthroid) 175 mcg DAILY06 08/14/21 09:00 08/19/21 09:03 175 MCG Loperamide HCl (Imodium) 2 mg PRN Q8HRS PRN 08/14/21 08:00 Methylprednisolone Acetate (DEPO-Medrol 40MG VIAL) 40 mg 1X ONCE 08/18/21 15:00 08/18/21 15:01 DC 08/18/21 15:05 40 MG Metoprolol Succinate (Toprol Xl) 25 mg DAILY 08/14/21 09:00 08/18/21 10:04 25 MG Multivitamins (Thera M Plus) 1 tab DAILY 08/14/21 09:00 08/19/21 09:04 1 TAB Non-Formulary Medication (Melatonin ) 2 tab QHS 08/14/21 21:00 UNV Nystatin (Mycostatin) 1 alex PRN BID PRN 08/14/21 09:15 Ondansetron HCl (Zofran Odt) 4 mg PRN Q6HRS PRN 08/14/21 08:45 Potassium Chloride (Klor-Con) 10 meq DAILY 08/14/21 09:00 08/16/21 08:30 DC 08/15/21 08:13 10 MEQ Quetiapine Fumarate (SEROquel) 50 mg BID 08/14/21 09:00 08/19/21 09:01 50 MG Sodium Chloride 1,000 ml @ 400 mls/hr Q2H30M PRN 08/19/21 08:45 08/19/21 20:44 Tramadol HCl (Ultram) 50 mg PRN Q8HRS PRN 08/14/21 08:00 Trazodone HCl (Desyrel) 50 mg PRN QHS PRN 08/14/21 08:00 08/18/21 01:36 50 MG Triamcinolone Acetonide (Kenalog 0.5%) 1 alex PRN BID PRN 08/14/21 09:15 Lab Laboratory Tests Test 08/18/21 11:21 08/18/21 16:28 08/18/21 20:13 08/19/21 05:50 Glucose (Fingerstick) 230 mg/dL (70-99) 197 mg/dL (70-99) 260 mg/dL (70-99) Sodium Level 132 mmol/L (136-145) Potassium Level 6.2 mmol/L (3.5-5.1) Chloride Level 94 mmol/L (98-107) Carbon Dioxide Level 23 mmol/L (21-32) Anion Gap 15 (6-14) Blood Urea Nitrogen 86 mg/dL (7-20) Creatinine 11.5 mg/dL (0.6-1.0) Estimated GFR (Cockcroft-Gault) 3.2 Glucose Level 352 mg/dL (70-99) Calcium Level 8.8 mg/dL (8.5-10.1) Test 08/19/21 07:33 Glucose (Fingerstick) 315 mg/dL (70-99) Results All relevant outside records, renal labs, imaging studies, telemetry/EKG's were reviewed. Justicifation of Admission Dx: Justifications for Admission: Justification of Admission Dx: Yes Acute Renal Failure: Serum Cr > 4mg/dL JUAN CARLOS SONI MD Aug 19, 2021 09:55
[2021-08-19 15:00] VITALS: BP 140/48
--- NOTE | 2021-08-19 15:16 | RAD ---
EXAM: Bilateral knees, standing view. HISTORY: Degenerative joint disease. COMPARISON: 06/03/2020 FINDINGS: A frontal view both knees is obtained. There is severe right and moderate left lateral comp artment joint space narrowing with degenerative subchondral sclerosis, subchondral cyst formation and spurring. There is mild bilateral medial compartment spurring. There is right genu valgus. IMPRESSION: 1. Severe lateral and mild medial compartment osteoarthritis of the right knee with genu valgus. The degenerative changes involving the lateral compartment are increased compared to the prior exam. 2. Moderate lateral and mild medial compartment osteoarthritis of the left knee. There is also minima lly increase in degenerative change involving the lateral compartment compared to the prior exam. Electronically signed by: Daisy Pascual MD (08/19/2021 3:14 PM) [id number]
[2021-08-19] MEDS: METOPROLOL SUCC 24HR ER 25 MG TAB.ER.24H. PO SCH (17:42)
[2021-08-19 19:00] VITALS: BP 144/38
[2021-08-19] MEDS: CALCIUM CARBONATE 500 MG TAB.CHEW PO SCH (21:27)
[2021-08-19] MEDS: ATORVASTATIN CALCIUM 20 MG TABLET PO SCH (21:27)
[2021-08-19] MEDS: CETIRIZINE HCL 10 MG TABLET. PO SCH (21:27)
[2021-08-19] MEDS: INSULIN GLARGINE SYRINGE. SQ SCH (21:29)
[2021-08-19 23:07] VITALS: BP 145/48
[2021-08-20 03:00] VITALS: BP 136/57
[2021-08-20 07:00] VITALS: BP 136/55
[2021-08-20] MEDS: HYDROCORTISONE 1% TOPICAL CREAM 30GM TUBE. TP SCH (07:39)
[2021-08-20] MEDS: METOPROLOL SUCC 24HR ER 25 MG TAB.ER.24H. PO SCH (09:00)
[2021-08-20] MEDS: POLYVINYL ALCOHOL 1.4% OPHTH SOLUTION 15ML BOTTLE. OU SCH (09:27)
[2021-08-20] MEDS: LEVOTHYROXINE 175 MCG TABLET PO SCH (09:28)
[2021-08-20] MEDS: APIXABAN 2.5 MG TABLET. PO SCH (09:28)
[2021-08-20] MEDS: busPIRone 5 MG TABLET. PO SCH ×2 (09:28→14:39)
[2021-08-20] MEDS: DONEPEZIL HCL 10 MG TABLET. PO SCH (09:28)
[2021-08-20] MEDS: DIVALPROEX EXTENDED RELEASE 250 MG TAB.ER.24H. PO SCH (09:28)
[2021-08-20] MEDS: AMIODARONE HCL 200 MG TABLET. PO SCH (09:29)
[2021-08-20] MEDS: ISOSORBIDE MONONITRATE ER 30 MG TAB.ER.24H PO SCH (09:29)
[2021-08-20] MEDS: CALCIUM ACETATE 667 MG CAPSULE PO SCH ×3 (09:30→17:22)
[2021-08-20] MEDS: QUEtiapine 25 MG TABLET. PO SCH (09:30)
[2021-08-20] MEDS: DOCUSATE SODIUM 100 MG CAPSULE. PO PRN (09:30)
[2021-08-20] MEDS: FAMOTIDINE 20 MG TABLET. PO SCH (09:32)
[2021-08-20] MEDS: MULTIVITAMIN with MINERAL TABLET. PO SCH (09:32)
[2021-08-20] MEDS: INSULIN LISPRO 300 UNITS/3 ML VIAL. SQ SCH ×3 (09:36→17:00)
--- NOTE | 2021-08-20 09:45 | PDOC ---
PROGRESS NOTES Date of Service DATE: 08/20/21 TIME: 09:43 Subjective Subjective She feels better. Objective Objective Vital Signs Date Time Temp Pulse Resp B/P (MAP) Pulse Ox O2 Delivery O2 Flow Rate FiO2 08/20/21 09:29 57 136/55 08/20/21 07:00 97.7 16 100 Room Air 97.7 Intake and Output 08/20/21 07:00 Intake Total 460 ml Output Total 0 ml Balance 460 ml Intake Oral 460 ml Output Urine Total 0 ml # Voids 1 Physical Exam Physical Exam She is alert,supine in bed and seems to be in no acute distress and she got up with physical therapy,requiring 2 person assistance for transfers. X-ray of knees revealed significant narrowing of knee joint lines bilaterally. Assessment Assessment Problems Medical Problems: (1) Acute psychosis Status: Acute (2) ESRD (end stage renal disease) Status: Acute (3) Medication noncompliance due to cognitive impairment Status: Acute Plan Plan of Care To SNF for continued care when medically stable. Comment Review of Relevant I have reviewed the following items connie (where applicable) has been applied. Labs Laboratory Tests Test 08/18/21 11:21 08/18/21 16:28 08/18/21 20:13 08/19/21 05:50 Glucose (Fingerstick) 230 mg/dL (70-99) 197 mg/dL (70-99) 260 mg/dL (70-99) Sodium Level 132 mmol/L (136-145) Potassium Level 6.2 mmol/L (3.5-5.1) Chloride Level 94 mmol/L (98-107) Carbon Dioxide Level 23 mmol/L (21-32) Anion Gap 15 (6-14) Blood Urea Nitrogen 86 mg/dL (7-20) Creatinine 11.5 mg/dL (0.6-1.0) Estimated GFR (Cockcroft-Gault) 3.2 Glucose Level 352 mg/dL (70-99) Calcium Level 8.8 mg/dL (8.5-10.1) Test 08/19/21 07:33 08/19/21 14:12 08/19/21 16:43 08/19/21 19:43 Glucose (Fingerstick) 315 mg/dL (70-99) 138 mg/dL (70-99) 341 mg/dL (70-99) 383 mg/dL (70-99) Test 08/20/21 07:34 Glucose (Fingerstick) 200 mg/dL (70-99) Laboratory Tests Test 08/19/21 14:12 08/19/21 16:43 08/19/21 19:43 08/20/21 07:34 Glucose (Fingerstick) 138 mg/dL (70-99) 341 mg/dL (70-99) 383 mg/dL (70-99) 200 mg/dL (70-99) Medications Current Medications Acetaminophen (Tylenol) 500 mg PRN Q6HRS PRN PO PAIN; Start 08/14/21 at 08:00 Amlodipine Besylate (Norvasc) 5 mg DAILY PO ; Start 08/14/21 at 09:00; Stop 08/16/21 at 08:30; Status DC Apixaban (Eliquis) 2.5 mg BID PO Last administered on 08/20/21 09:28; Start 08/14/21 at 09:00 Atorvastatin Calcium (Lipitor) 20 mg HS PO Last administered on 08/19/21at 21:27; Start 08/14/21 at 21:00 Buspirone HCl (Buspar) 5 mg TID PO Last administered on 08/20/21at 09:28; Start 08/14/21 at 09:00 Cetirizine HCl (ZyrTEC) 10 mg HS PO Last administered on 08/19/21at 21:27; St art 08/14/21 at 21:00 Divalproex Sodium (Depakote Er) 250 mg DAILY PO Last administered on 08/20/21 09:28; Start 08/14/21 at 09:00 Docusate Sodium (Colace) 100 mg PRN DAILY PRN PO CONSTIPATION Last administered on 08/20/21 09:30; Start 08/14/21 at 08:00 Donepezil HCl (Aricept) 10 mg DAILY PO Last administered on 08/20/21 09:28; Start 08/14/21 at 09:00 Ergocalciferol (Vitamin D2) 50,000 unit Th PO Last administered on 08/14/21at 09:07; Start 08/14/21 at 09:00 Famotidine (Pepcid) 20 mg DAILY PO ; Start 08/14/21 at 09:00; Stop 08/14/21 at 08:39; Status DC Hydralazine HCl (Apresoline) 25 mg BID PO ; Start 08/14/21 at 09:00; Stop 08/16/21 at 08:30; Status DC Isosorbide Mononitrate (Imdur) 30 mg DAILY PO Last administered on 08/20/21at 09:29; Start 08/14/21 at 09:00 Levothyroxine Sodium (Synthroid) 175 mcg DAILY06 PO Last administered on 08/20/21at 09:28; Start 08/14/21 at 09:00 Loperamide HCl (Imodium) 2 mg PRN Q8HRS PRN PO DIARRHEA; Start 08/14/21 at 08:00 Metoprolol Succinate (Toprol Xl) 25 mg DAILY PO Last administered on 08/19/21at 17:42; Start 08/14/21 at 09:00 Potassium Chloride (Klor-Con) 10 meq DAILY PO Last administered on 08/15/21at 08:13; Start 08/14/21 at 09:00; Stop 08/16/21 at 08:30; Status DC Tramadol HCl (Ultram) 50 mg PRN Q8HRS PRN PO PAIN; Start 08/14/21 at 08:00 Trazodone HCl (Desyrel) 50 mg PRN QHS PRN PO INSOMNIA Last administered on 08/18/21at 01:36; Start 08/14/21 at 08:00 Amiodarone HCl (Cordarone) 100 mg DAILY PO Last administered on 08/20/21at 09:29; Start 08/14/21 at 09:00 Benzonatate (Tessalon Perle) 200 mg PRN TID PRN PO COUGH Last administered on 08/20/21 09:31; Start 08/14/21 at 09:00 Calcium Acetate (Phoslo) 667 mg TIDWMEALS PO Last administered on 08/20/21 09:30; Start 08/14/21 at 12:00 Calcium Carbonate/ Glycine (Tums) 500 mg HS PO ; Start 08/14/21 at 21:00; Stop 08/14/21 at 22:37; Status DC Glycerin/ Hypromellose/ Polyethylene (Artificial Tears) 1 drop BID OU Last administered on 08/20/21at 09:27; Start 08/14/21 at 09:00 Guaifenesin (Robitussin Dm) 10 ml PRN Q6HRS PRN PO COUGH; Start 08/14/21 at 09:15 Hydrocortisone (Cortaid) 1 jarvis BID TP Last administered on 08/19/21at 21:27; Start 08/14/21 at 09:00 Insulin Glargine (Lantus Syringe) 18 unit QHS SQ Last administered on 08/19/21at 21:29; Start 08/14/21 at 21:00 Non-Formulary Medication (Melatonin ) 2 tab QHS PO ; Start 08/14/21 at 21:00; Status UNV Multivitamins (Thera M Plus) 1 tab DAILY PO Last administered on 08/20/21at 09:32; Start 08/14/21 at 09:00 Triamcinolone Acetonide (Kenalog 0.5%) 1 jarvis PRN BID PRN TP REDNESS; Start 08/14/21 at 09:15 Ondansetron HCl (Zofran Odt) 4 mg PRN Q6HRS PRN PO NAUSEA/VOMITING; Start 08/14/21 at 08:45 Quetiapine Fumarate (SEROquel) 50 mg BID PO Last administered on 08/20/21at 09:30; Start 08/14/21 at 09:00 Insulin Human Lispro (HumaLOG) 0-7 UNITS TIDWMEALS SQ Last administered on 08/20/21at 09:36; Start 08/14/21 at 12:00 Dextrose (Dextrose 50%-Water Syringe) 12.5 gm PRN Q15MIN PRN IV SEE COMMENTS; Start 08/14/21 at 08:15 Famotidine (Pepcid) 20 mg Q48H PO Last administered on 08/20/21at 09:32; Start 08/14/21 at 09:00 Nystatin (Mycostatin) 1 jarvis PRN BID PRN TP REDNESS; Start 08/14/21 at 09:15 Sodium Chloride 1,000 ml @ 1,000 mls/hr Q1H PRN IV hypotension; Start 08/14/21 at 11:15; Stop 08/14/21 at 17:14; Status DC Albumin Human 200 ml @ 200 mls/hr 1X PRN PRN IV Hypotension; Start 08/14/21 at 11:15; Stop 08/14/21 at 17:14; Status DC Diphenhydramine HCl (Benadryl) 25 mg 1X PRN PRN IV ITCHING; Start 08/14/21 at 11:15; Stop 08/15/21 at 11:14; Status DC Diphenhydramine HCl (Benadryl) 25 mg 1X PRN PRN IV ITCHING; Start 08/14/21 at 11:15; Stop 08/15/21 at 11:14; Status DC Sodium Chloride 1,000 ml @ 400 mls/hr Q2H30M PRN IV PATENCY; Start 08/14/21 at 11:15; Stop 08/14/21 at 23:14; Status DC Info (PHARMACY MONITORING -- do not chart) 1 each PRN DAILY PRN MC SEE COMMENTS; Start 08/14/21 at 11:15; Status UNV Info (PHARMACY MONITORING -- do not chart) 1 each PRN DAILY PRN MC SEE COMMENTS; Start 08/14/21 at 11:15; Stop 08/16/21 at 09:45; Status DC Calcium Carbonate/ Glycine (Tums) 500 mg HS PO Last administered on 08/19/21at 21:27; Start 08/14/21 at 22:37 Sodium Chloride 250 ml @ 250 mls/hr 1X ONCE IV Last administered on 08/16/21at 09:30; Start 08/16/21 at 08:45; Stop 08/16/21 at 09:44; Status DC Info (PHARMACY MONITORING -- do not chart) 1 each PRN DAILY PRN MC SEE COMMENTS; Start 08/16/21 at 09:45; Status Cancel Info (PHARMACY MONITORING -- do not chart) 1 each PRN DAILY PRN MC SEE COMMENTS; Start 08/16/21 at 09:45; Stop 08/16/21 at 09:45; Status DC Albumin Human 100 ml @ 100 mls/hr 1X ONCE IV Last administered on 08/16/21at 11:30; Start 08/16/21 at 11:30; Stop 08/16/21 at 12:29; Status DC Methylprednisolone Acetate (DEPO-Medrol 40MG VIAL) 40 mg 1X ONCE IM Last administered on 08/18/21at 15:05; Start 08/18/21 at 15:00; Stop 08/18/21 at 15:01; Status DC Bupivacaine HCl (Sensorcaine-Mpf 0.25%) 10 ml 1X ONCE IJ Last administered on 08/18/21at 15:06; Start 08/18/21 at 15:00; Stop 08/18/21 at 15:01; Status DC Sodium Chloride 1,000 ml @ 1,000 mls/hr Q1H PRN IV hypotension; Start 08/19/21 at 08:45; Stop 08/19/21 at 14:44; Status DC Sodium Chloride 1,000 ml @ 400 mls/hr Q2H30M PRN IV PATENCY; Start 08/19/21 at 08:45; Stop 08/19/21 at 20:44; Status DC Info (PHARMACY MONITORING -- do not chart) 1 each PRN DAILY PRN MC SEE COMMENTS; Start 08/19/21 at 08:45 Active Scripts Active Levsin-Sl (Hyoscyamine Sulfate) 0.125 Mg Tab.subl 0.125 Mg SL Q4-6HRS PRN Pepcid (Famotidine) 20 Mg Tablet 20 Mg PO BID Ondansetron Odt (Ondansetron) 4 Mg Tab.rapdis 1 Tab PO PRN Q6-8HRS PRN Reported Imodium A-D (Loperamide HCl) 2 Mg Capsule 2 Mg PO PRN Q8HRS PRN Amiodarone Hcl 100 Mg Tablet 1 Tab PO DAILY 30 Days Klor-Con 10 (Potassium Chloride) 10 Meq Tablet.er 10 Meq PO DAILY Promethazine-Dm Syrup (D-Methorphan Hb/Prometh Hcl) 118 Ml Syrup 5 Ml PO PRN Q6HRS PRN 6 Days Metoprolol Succinate ( Xl ) (Metoprolol Succinate) 25 Mg Tab.er.24h 1 Tab PO DAILY Levothyroxine Sodium 175 Mcg Tablet 1 Tab PO DAILY Lantus Solostar (Insulin Glargine,Hum.rec.anlog) 100 Unit/1 Ml Insuln.pen 18 Unit SQ QHS Eliquis (Apixaban) 2.5 Mg Tablet 2.5 Mg PO BID Atorvastatin Calcium 20 Mg Tablet 20 Mg PO HS Thera Tears (Carboxymethylcellulose Sodium) 15 Ml Drops 1 Drop EACHEYE BID Benzonatate 200 Mg Capsule 200 Mg PO TID PRN Hydralazine Hcl 25 Mg Tablet 25 Mg PO BID Acetaminophen 500 Mg Tablet 500 Mg PO PRN Q6HRS PRN Trazodone Hcl 50 Mg Tablet 50 Mg PO PRN QHS Tums (Calcium Carbonate) 300 Mg Tab.chew 500 Mg PO HS Zyrtec (Cetirizine Hcl) 10 Mg Tablet 10 Mg PO HS Zofran (Ondansetron Hcl) 4 Mg Tablet 1 Tab PO PRN Q6HRS Amlodipine Besylate 5 Mg Tablet 5 Mg PO DAILY take 1 tab every Sun, Mon, Wed, Fri Tramadol Hcl 50 Mg Tablet 50 Mg PO Q8HRS PRN Melatonin 3 Mg Tablet 2 Tab PO QHS Hydrocortisone 59 Ml Lotion 1 Jarvis TP BID Colace (Docusate Sodium) 100 Mg Capsule 1 Cap PO PRN DAILY PRN Calcium Acetate 667 Mg Tablet 667 Mg PO TIDWMEALS Buspirone Hcl 5 Mg Tablet 1 Tab PO TID Seroquel (Quetiapine Fumarate) 50 Mg Tablet 50 Mg PO BID Nystatin-Triamcinolone Cream (Nystatin/Triamcin) 15 Gm Cream..g. 1 Jarvis TP PRN PRN Depakote Er (Divalproex Sodium) 250 Mg Tab.er.24h 250 Mg PO DAILY Novolog Flexpen (Insulin Aspart) 100 Unit/1 Ml Insuln.pen 4 Unit SQ TIDWMEALS Vitamin D2 (Ergocalciferol (Vitamin D2)) 50,000 Unit Capsule 50,000 Unit PO DAILY Donepezil Hcl 10 Mg Tablet 10 Mg PO DAILY Isosorbide Mononitrate Er (Isosorbide Mononitrate) 30 Mg Tab.er.24h 1 Tab PO DAILY Multivitamins (Multivitamin) 1 Each Tablet 1 Tab PO DAILY Vitals/I & O Vital Sign - Last 24 Hours 08/19/21 08/19/21 08/19/21 08/19/21 15:00 17:42 19:00 23:07 Temp 98.1 98.3 98.1 98.1 98.3 98.1 Pulse 65 73 65 63 Resp 18 19 18 B/P (MAP) 140/48 (78) 140/48 144/38 (73) 145/48 (80) Pulse Ox 100 100 96 O2 Delivery Room Air Room Air Room Air 08/20/21 08/20/21 08/20/21 08/20/21 03:00 07:00 09:29 09:29 Temp 98.1 97.7 98.1 97.7 Pulse 59 57 57 57 Resp 16 16 B/P (MAP) 136/57 (83) 136/55 (82) 136/55 136/55 Pulse Ox 99 100 O2 Delivery Room Air Intake and Output 08/19/21 08/19/21 08/20/21 15:00 23:00 07:00 Intake Total 100 ml 360 ml 0 ml Output Total 0 ml Balance 100 ml 360 ml 0 ml Justifications for Admission Other Justification SARAH ZUNIGA MD Aug 20, 2021 09:45
--- NOTE | 2021-08-20 09:54 | PDOC ---
DATE OF SERVICE DATE: 08/20/21 TIME: 09:54 SUBJECTIVE ROS Stable . No SOB, No N/V No complaints this morning OBJECTIVE Vital Signs Vital Signs Date Time Temp Pulse Resp B/P (MAP) Pulse Ox O2 Delivery O2 Flow Rate FiO2 08/20/21 09:29 57 136/55 08/20/21 07:00 97.7 16 100 Room Air 97.7 I & 0 Intake and Output 08/20/21 07:00 Intake Total 460 ml Output Total 0 ml Balance 460 ml Intake Oral 460 ml Output Urine Total 0 ml # Voids 1 PHYSICAL EXAM Physical Exam General NAD HEEN OM moist Neck Supple Lungs CTA B, Non labored CV RRR Abd Soft, NT , BS + Ext No LE edema No meza Neuro Grossly Normal Derm No Rash DIAGNOSIS/ASSESSMENT Assessment & Plan ESRD on HD at [facility] under Dr Metzger TTS ,No indication today Anemia- No indication for [place] Hx of Bipolar/Attention seeking behavior per Dr. Metzger's previous note- Hypotension -Improved . Adjust antihypertensives based on BP, defer to PCP DC per primary COMMENT/RELEVANT DATA Meds Current Medications Medications (Trade) Dose Ordered Sig/Angeles Start Time Stop Time Status Last Admin Dose Admin Acetaminophen (Tylenol) 500 mg PRN Q6HRS PRN 08/14/21 08:00 Albumin Human 100 ml @ 100 mls/hr 1X ONCE 08/16/21 11:30 08/16/21 12:29 DC 08/16/21 11:30 100 MLS/HR Amiodarone HCl (Cordarone) 100 mg DAILY 08/14/21 09:00 08/20/21 09:29 100 MG Amlodipine Besylate (Norvasc) 5 mg DAILY 08/14/21 09:00 08/16/21 08:30 DC Apixaban (Eliquis) 2.5 mg BID 08/14/21 09:00 08/20/21 09:28 2.5 MG Atorvastatin Calcium (Lipitor) 20 mg HS 08/14/21 21:00 08/19/21 21:27 20 MG Benzonatate (Tessalon Perle) 200 mg PRN TID PRN 08/14/21 09:00 08/20/21 09:31 200 MG Bupivacaine HCl (Sensorcaine-Mpf 0.25%) 10 ml 1X ONCE 08/18/21 15:00 08/18/21 15:01 DC 08/18/21 15:06 10 ML Buspirone HCl (Buspar) 5 mg TID 08/14/21 09:00 08/20/21 09:28 5 MG Calcium Acetate (Phoslo) 667 mg TIDWMEALS 08/14/21 12:00 08/20/21 09:30 667 MG Calcium Carbonate/ Glycine (Tums) 500 mg HS 08/14/21 22:37 08/19/21 21:27 500 MG Cetirizine HCl (ZyrTEC) 10 mg HS 08/14/21 21:00 08/19/21 21:27 10 MG Dextrose (Dextrose 50%-Water Syringe) 12.5 gm PRN Q15MIN PRN 08/14/21 08:15 Diphenhydramine HCl (Benadryl) 25 mg 1X PRN PRN 08/14/21 11:15 08/15/21 11:14 DC Divalproex Sodium (Depakote Er) 250 mg DAILY 08/14/21 09:00 08/20/21 09:28 250 MG Docusate Sodium (Colace) 100 mg PRN DAILY PRN 08/14/21 08:00 08/20/21 09:30 100 MG Donepezil HCl (Aricept) 10 mg DAILY 08/14/21 09:00 08/20/21 09:28 10 MG Ergocalciferol (Vitamin D2) 50,000 unit Th 08/14/21 09:00 08/14/21 09:07 50,000 UNIT Famotidine (Pepcid) 20 mg Q48H 08/14/21 09:00 08/20/21 09:32 20 MG Glycerin/ Hypromellose/ Polyethylene (Artificial Tears) 1 drop BID 08/14/21 09:00 08/20/21 09:27 1 DROP Guaifenesin (Robitussin Dm) 10 ml PRN Q6HRS PRN 08/14/21 09:15 Hydralazine HCl (Apresoline) 25 mg BID 08/14/21 09:00 08/16/21 08:30 DC Hydrocortisone (Cortaid) 1 alex BID 08/14/21 09:00 08/19/21 21:27 1 ALEX Info (PHARMACY MONITORING -- do not chart) 1 each PRN DAILY PRN 08/19/21 08:45 Insulin Glargine (Lantus Syringe) 18 unit QHS 08/14/21 21:00 08/19/21 21:29 18 UNIT Insulin Human Lispro (HumaLOG) 0-7 UNITS TIDWMEALS 08/14/21 12:00 08/20/21 09:36 3 UNITS Isosorbide Mononitrate (Imdur) 30 mg DAILY 08/14/21 09:00 08/20/21 09:29 30 MG Levothyroxine Sodium (Synthroid) 175 mcg DAILY06 08/14/21 09:00 08/20/21 09:28 175 MCG Loperamide HCl (Imodium) 2 mg PRN Q8HRS PRN 08/14/21 08:00 Methylprednisolone Acetate (DEPO-Medrol 40MG VIAL) 40 mg 1X ONCE 08/18/21 15:00 08/18/21 15:01 DC 08/18/21 15:05 40 MG Metoprolol Succinate (Toprol Xl) 25 mg DAILY 08/14/21 09:00 08/19/21 17:42 25 MG Multivitamins (Thera M Plus) 1 tab DAILY 08/14/21 09:00 08/20/21 09:32 1 TAB Non-Formulary Medication (Melatonin ) 2 tab QHS 08/14/21 21:00 UNV Nystatin (Mycostatin) 1 alex PRN BID PRN 08/14/21 09:15 Ondansetron HCl (Zofran Odt) 4 mg PRN Q6HRS PRN 08/14/21 08:45 Potassium Chloride (Klor-Con) 10 meq DAILY 08/14/21 09:00 08/16/21 08:30 DC 08/15/21 08:13 10 MEQ Quetiapine Fumarate (SEROquel) 50 mg BID 08/14/21 09:00 08/20/21 09:30 50 MG Sodium Chloride 1,000 ml @ 400 mls/hr Q2H30M PRN 08/19/21 08:45 08/19/21 20:44 DC Tramadol HCl (Ultram) 50 mg PRN Q8HRS PRN 08/14/21 08:00 Trazodone HCl (Desyrel) 50 mg PRN QHS PRN 08/14/21 08:00 08/18/21 01:36 50 MG Triamcinolone Acetonide (Kenalog 0.5%) 1 alex PRN BID PRN 08/14/21 09:15 Lab Laboratory Tests Test 08/19/21 14:12 08/19/21 16:43 08/19/21 19:43 08/20/21 07:34 Glucose (Fingerstick) 138 mg/dL (70-99) 341 mg/dL (70-99) 383 mg/dL (70-99) 200 mg/dL (70-99) Results All relevant outside records, renal labs, imaging studies, telemetry/EKG's were reviewed. Justicifation of Admission Dx: Justifications for Admission: Justification of Admission Dx: Yes Acute Renal Failure: Serum Cr > 4mg/dL JUAN CARLOS SONI MD Aug 20, 2021 09:54
[2021-08-20 11:00] VITALS: BP 115/49
--- NOTE | 2021-08-20 12:04 | PDOC ---
PROGRESS NOTES Date of Service DATE: 08/20/21 TIME: 12:02 Assessment Problems Medical Problems: (1) Acute psychosis Status: Acute (2) ESRD (end stage renal disease) Status: Acute (3) Medication noncompliance due to cognitive impairment Status: Acute Severe late-stage Alzheimer's disease as complicated by her chronic bipolar disorder Her leg problems are longstanding, she has been in a wheelchair for quite a long time, but Dr. Reid has seen her walking [facility]. This is most likely a combination of musculoskeletal issues and her peripheral neuropathy Diabetic peripheral neuropathy Plan Appreciate Dr. Kee's help. Hold on gabapentin, risks outweigh benefits I do not believe she is a good candidate for any kind of lumbar surgery, holding off on imaging of the spine. Return to jail Subjective Denies leg pain Objective Vital Signs Date Time Temp Pulse Resp B/P (MAP) Pulse Ox O2 Delivery O2 Flow Rate FiO2 08/20/21 09:29 57 136/55 08/20/21 07:00 97.7 16 100 Room Air 97.7 Intake and Output 08/20/21 07:00 Intake Total 460 ml Output Total 0 ml Balance 460 ml Intake Oral 460 ml Output Urine Total 0 ml # Voids 1 PHYSICAL EXAM Alert, oriented to person PERRL. EOMI. CN: no focal findings. Muscle tone: normal. Muscle strength: 4/5 arms, 2-3/5 legs DTR: 1+ Plantar reflex: Flexor Bilateral grasp reflexes Gait: not examined in bed. Sensory exam: no abnormal findings. No cerebellar signs elicited. Musculoskeletal: No longer has diffuse leg tenderness Review of Relevant I have reviewed the following items connie (where applicable) has been applied. Labs Laboratory Tests Test 08/18/21 16:28 08/18/21 20:13 08/19/21 05:50 08/19/21 07:33 Glucose (Fingerstick) 197 mg/dL (70-99) 260 mg/dL (70-99) 315 mg/dL (70-99) Sodium Level 132 mmol/L (136-145) Potassium Level 6.2 mmol/L (3.5-5.1) Chloride Level 94 mmol/L (98-107) Carbon Dioxide Level 23 mmol/L (21-32) Anion Gap 15 (6-14) Blood Urea Nitrogen 86 mg/dL (7-20) Creatinine 11.5 mg/dL (0.6-1.0) Estimated GFR (Cockcroft-Gault) 3.2 Glucose Level 352 mg/dL (70-99) Calcium Level 8.8 mg/dL (8.5-10.1) Test 08/19/21 14:12 08/19/21 16:43 08/19/21 19:43 08/20/21 07:34 Glucose (Fingerstick) 138 mg/dL (70-99) 341 mg/dL (70-99) 383 mg/dL (70-99) 200 mg/dL (70-99) Test 08/20/21 11:19 Glucose (Fingerstick) 171 mg/dL (70-99) Laboratory Tests Test 08/19/21 14:12 08/19/21 16:43 08/19/21 19:43 08/20/21 07:34 Glucose (Fingerstick) 138 mg/dL (70-99) 341 mg/dL (70-99) 383 mg/dL (70-99) 200 mg/dL (70-99) Test 08/20/21 11:19 Glucose (Fingerstick) 171 mg/dL (70-99) Medications Current Medications Acetaminophen (Tylenol) 500 mg PRN Q6HRS PRN PO MILD PAIN 1-3; Start 08/14/21 at 08:00 Amlodipine Besylate (Norvasc) 5 mg DAILY PO ; Start 08/14/21 at 09:00; Stop at 08:30; Status DC Apixaban (Eliquis) 2.5 mg BID PO Last administered on 08/20/21at 09:28; Start 08/14/21 at 09:00 Atorvastatin Calcium (Lipitor) 20 mg HS PO Last administered on 08/19/21at 21:27; Start 08/14/21 at 21:00 Buspirone HCl (Buspar) 5 mg TID PO Last administered on 08/20/21at 09:28; Start 08/14/21 at 09:00 Cetirizine HCl (ZyrTEC) 10 mg HS PO Last administered on 08/19/21at 21:27; Start 08/14/21 at 21:00 Divalproex Sodium (Depakote Er) 250 mg DAILY PO Last administered on 08/20/21at 09:28; Start 08/14/21 at 09:00 Docusate Sodium (Colace) 100 mg PRN DAILY PRN PO HARD STOOLS Last administered on 08/20/21 09:30; Start 08/14/21 at 08:00 Donepezil HCl (Aricept) 10 mg DAILY PO Last administered on 08/20/21at 09:28; Start 08/14/21 at 09:00 Ergocalciferol (Vitamin D2) 50,000 unit Th PO Last administered on 08/14/21at 09:07; Start 08/14/21 at 09:00 Famotidine (Pepcid) 20 mg DAILY PO ; Start 08/14/21 at 09:00; Stop 08/14/21 at 08:39; Status DC Hydralazine HCl (Apresoline) 25 mg BID PO ; Start 08/14/21 at 09:00; Stop 08/16/21 at 08:30; Status DC Isosorbide Mononitrate (Imdur) 30 mg DAILY PO Last administered on 08/20/21at 0 9:29; Start 08/14/21 at 09:00 Levothyroxine Sodium (Synthroid) 175 mcg DAILY06 PO Last administered on 08/20/21 09:28; Start 08/14/21 at 09:00 Loperamide HCl (Imodium) 2 mg PRN Q8HRS PRN PO DIARRHEA; Start 08/14/21 at 08:00 Metoprolol Succinate (Toprol Xl) 25 mg DAILY PO Last administered on 08/19/21at 17:42; Start 08/14/21 at 09:00 Potassium Chloride (Klor-Con) 10 meq DAILY PO Last administered on 08/15/21at 08:13; Start 08/14/21 at 09:00; Stop 08/16/21 at 08:30; Status DC Tramadol HCl (Ultram) 50 mg PRN Q8HRS PRN PO MODERATE- SEVERE PAIN; Start 08/14/21 at 08:00 Trazodone HCl (Desyrel) 50 mg PRN QHS PRN PO INSOMNIA Last administered on 08/18/21at 01:36; Start 08/14/21 at 08:00 Amiodarone HCl (Cordarone) 100 mg DAILY PO Last administered on 08/20/21at 09:29; Start 08/14/21 at 09:00 Benzonatate (Tessalon Perle) 200 mg PRN TID PRN PO COUGH- 2ND CHOICE Last administered on 08/20/21 09:31; Start 08/14/21 at 09:00 Calcium Acetate (Phoslo) 667 mg TIDWMEALS PO Last administered on 08/20/21 09:30; Start 08/14/21 at 12:00 Calcium Carbonate/ Glycine (Tums) 500 mg HS PO ; Start 08/14/21 at 21:00; Stop 08/14/21 at 22:37; Status DC Glycerin/ Hypromellose/ Polyethylene (Artificial Tears) 1 drop BID OU Last administered on 08/20/21 09:27; Start 08/14/21 at 09:00 Guaifenesin (Robitussin Dm) 10 ml PRN Q6HRS PRN PO COUGH; Start 08/14/21 at 09:15 Hydrocortisone (Cortaid) 1 jarvis BID TP Last administered on 08/19/21 21:27; Start 08/14/21 at 09:00 Insulin Glargine (Lantus Syringe) 18 unit QHS SQ Last administered on 08/19/21 21:29; Start 08/14/21 at 21:00 Non-Formulary Medication (Melatonin ) 2 tab QHS PO ; Start 08/14/21 at 21:00; Status UNV Multivitamins (Thera M Plus) 1 tab DAILY PO Last administered on 08/20/21at 09:32; Start 08/14/21 at 09:00 Triamcinolone Acetonide (Kenalog 0.5%) 1 jarvis PRN BID PRN TP REDNESS; Start 08/14/21 at 09:15 Ondansetron HCl (Zofran Odt) 4 mg PRN Q6HRS PRN PO NAUSEA/VOMITING; Start 08/14/21 at 08:45 Quetiapine Fumarate (SEROquel) 50 mg BID PO Last administered on 08/20/21 09:30; Start 08/14/21 at 09:00 Insulin Human Lispro (HumaLOG) 0-7 UNITS TIDWMEALS SQ Last administered on 08/20/21at 09:36; Start 08/14/21 at 12:00 Dextrose (Dextrose 50%-Water Syringe) 12.5 gm PRN Q15MIN PRN IV SEE COMMENTS; Start 08/14/21 at 08:15 Famotidine (Pepcid) 20 mg Q48H PO Last administered on 08/20/21at 09:32; Start 08/14/21 at 09:00 Nystatin (Mycostatin) 1 jarvis PRN BID PRN TP REDNESS; Start 08/14/21 at 09:15 Sodium Chloride 1,000 ml @ 1,000 mls/hr Q1H PRN IV hypotension; Start 08/14/21 at 11:15; Stop 08/14/21 at 17:14; Status DC Albumin Human 200 ml @ 200 mls/hr 1X PRN PRN IV Hypotension; Start 08/14/21 at 11:15; Stop 08/14/21 at 17:14; Status DC Diphenhydramine HCl (Benadryl) 25 mg 1X PRN PRN IV ITCHING; Start 08/14/21 at 11:15; Stop 08/15/21 at 11:14; Status DC Diphenhydramine HCl (Benadryl) 25 mg 1X PRN PRN IV ITCHING; Start 08/14/21 at 11:15; Stop 08/15/21 at 11:14; Status DC Sodium Chloride 1,000 ml @ 400 mls/hr Q2H30M PRN IV PATENCY; Start 08/14/21 at 11:15; Stop 08/14/21 at 23:14; Status DC Info (PHARMACY MONITORING -- do not chart) 1 each PRN DAILY PRN MC SEE COMMENTS; Start 08/14/21 at 11:15; Status UNV Info (PHARMACY MONITORING -- do not chart) 1 each PRN DAILY PRN MC SEE COMMENTS; Start 08/14/21 at 11:15; Stop 08/16/21 at 09:45; Status DC Calcium Carbonate/ Glycine (Tums) 500 mg HS PO Last administered on 08/19/21at 21:27; Start 08/14/21 at 22:37 Sodium Chloride 250 ml @ 250 mls/hr 1X ONCE IV Last administered on 08/16/21at 09:30; Start 08/16/21 at 08:45; Stop 08/16/21 at 09:44; Status DC Info (PHARMACY MONITORING -- do not chart) 1 each PRN DAILY PRN MC SEE COMMENTS; Start 08/16/21 at 09:45; Status Cancel Info (PHARMACY MONITORING -- do not chart) 1 each PRN DAILY PRN MC SEE COMMENTS; Start 08/16/21 at 09:45; Stop 08/16/21 at 09:45; Status DC Albumin Human 100 ml @ 100 mls/hr 1X ONCE IV Last administered on 08/16/21at 11:30; Start 08/16/21 at 11:30; Stop 08/16/21 at 12:29; Status DC Methylprednisolone Acetate (DEPO-Medrol 40MG VIAL) 40 mg 1X ONCE IM Last administered on 08/18/21at 15:05; Start 08/18/21 at 15:00; Stop 08/18/21 at 15:01; Status DC Bupivacaine HCl (Sensorcaine-Mpf 0.25%) 10 ml 1X ONCE IJ Last administered on 08/18/21at 15:06; Start 08/18/21 at 15:00; Stop 08/18/21 at 15:01; Status DC Sodium Chloride 1,000 ml @ 1,000 mls/hr Q1H PRN IV hypotension; Start 08/19/21 at 08:45; Stop 08/19/21 at 14:44; Status DC Sodium Chloride 1,000 ml @ 400 mls/hr Q2H30M PRN IV PATENCY; Start 08/19/21 at 08:45; Stop 08/19/21 at 20:44; Status DC Info (PHARMACY MONITORING -- do not chart) 1 each PRN DAILY PRN MC SEE COMMENTS; Start 08/19/21 at 08:45 Active Scripts Active Levsin-Sl (Hyoscyamine Sulfate) 0.125 Mg Tab.subl 0.125 Mg SL Q4-6HRS PRN Pepcid (Famotidine) 20 Mg Tablet 20 Mg PO BID Ondansetron Odt (Ondansetron) 4 Mg Tab.rapdis 1 Tab PO PRN Q6-8HRS PRN Reported Imodium A-D (Loperamide HCl) 2 Mg Capsule 2 Mg PO PRN Q8HRS PRN Amiodarone Hcl 100 Mg Tablet 1 Tab PO DAILY 30 Days Klor-Con 10 (Potassium Chloride) 10 Meq Tablet.er 10 Meq PO DAILY Promethazine-Dm Syrup (D-Methorphan Hb/Prometh Hcl) 118 Ml Syrup 5 Ml PO PRN Q6HRS PRN 6 Days Metoprolol Succinate ( Xl ) (Metoprolol Succinate) 25 Mg Tab.er.24h 1 Tab PO DAILY Levothyroxine Sodium 175 Mcg Tablet 1 Tab PO DAILY Lantus Solostar (Insulin Glargine,Hum.rec.anlog) 100 Unit/1 Ml Insuln.pen 18 Unit SQ QHS Eliquis (Apixaban) 2.5 Mg Tablet 2.5 Mg PO BID Atorvastatin Calcium 20 Mg Tablet 20 Mg PO HS Thera Tears (Carboxymethylcellulose Sodium) 15 Ml Drops 1 Drop EACHEYE BID Benzonatate 200 Mg Capsule 200 Mg PO TID PRN Hydralazine Hcl 25 Mg Tablet 25 Mg PO BID Acetaminophen 500 Mg Tablet 500 Mg PO PRN Q6HRS PRN Trazodone Hcl 50 Mg Tablet 50 Mg PO PRN QHS Tums (Calcium Carbonate) 300 Mg Tab.chew 500 Mg PO HS Zyrtec (Cetirizine Hcl) 10 Mg Tablet 10 Mg PO HS Zofran (Ondansetron Hcl) 4 Mg Tablet 1 Tab PO PRN Q6HRS Amlodipine Besylate 5 Mg Tablet 5 Mg PO DAILY take 1 tab every Sun, Mon, Wed, Fri Tramadol Hcl 50 Mg Tablet 50 Mg PO Q8HRS PRN Melatonin 3 Mg Tablet 2 Tab PO QHS Hydrocortisone 59 Ml Lotion 1 Jarvis TP BID Colace (Docusate Sodium) 100 Mg Capsule 1 Cap PO PRN DAILY PRN Calcium Acetate 667 Mg Tablet 667 Mg PO TIDWMEALS Buspirone Hcl 5 Mg Tablet 1 Tab PO TID Seroquel (Quetiapine Fumarate) 50 Mg Tablet 50 Mg PO BID Nystatin-Triamcinolone Cream (Nystatin/Triamcin) 15 Gm Cream..g. 1 Jarvis TP PRN PRN Depakote Er (Divalproex Sodium) 250 Mg Tab.er.24h 250 Mg PO DAILY Novolog Flexpen (Insulin Aspart) 100 Unit/1 Ml Insuln.pen 4 Unit SQ TIDWMEALS Vitamin D2 (Ergocalciferol (Vitamin D2)) 50,000 Unit Capsule 50,000 Unit PO DAILY Donepezil Hcl 10 Mg Tablet 10 Mg PO DAILY Isosorbide Mononitrate Er (Isosorbide Mononitrate) 30 Mg Tab.er.24h 1 Tab PO DAILY Multivitamins (Multivitamin) 1 Each Tablet 1 Tab PO DAILY Vitals/I & O Vital Sign - Last 24 Hours 08/19/21 08/19/21 08/19/21 08/19/21 15:00 17:42 19:00 23:07 Temp 98.1 98.3 98.1 98.1 98.3 98.1 Pulse 65 73 65 63 Resp 18 19 18 B/P (MAP) 140/48 (78) 140/48 144/38 (73) 145/48 (80) Pulse Ox 100 100 96 O2 Delivery Room Air Room Air Room Air 08/20/21 08/20/21 08/20/21 08/20/21 03:00 07:00 09:29 09:29 Temp 98.1 97.7 98.1 97.7 Pulse 59 57 57 57 Resp 16 16 B/P (MAP) 136/57 (83) 136/55 (82) 136/55 136/55 Pulse Ox 99 100 O2 Delivery Room Air Intake and Output 08/19/21 08/19/21 08/20/21 15:00 23:00 07:00 Intake Total 100 ml 360 ml 0 ml Output Total 0 ml Balance 100 ml 360 ml 0 ml Justicifation of Admission Dx: Justifications for Admission: Justification of Admission Dx: Yes Acute Renal Failure: Serum Cr > 4mg/dL MAYCO RYAN MD Aug 20, 2021 12:04
[2021-08-20 15:00] VITALS: BP 131/55
--- NOTE | 2021-08-20 15:01 | SNU/HH DC ---
DISCHARGE ORDERS DISCHARGE INFORMATION: DISCHARGE DATE: Aug 20, 2021 FINAL DIAGNOSIS Problems Medical Problems: (1) Acute psychosis Status: Acute (2) ESRD (end stage renal disease) Status: Acute (3) Medication noncompliance due to cognitive impairment Status: Acute CONDITION ON DISCHARGE: Stable CODE STATUS: Code Status: Full LONG TERM: SNF STAY <30 DAYS: Yes HOSPICE: HOSPICE: No HOSPICE EVAL & TREAT: No LTAC: ADMIT TO LTAC: No POST DISCHARGE ORDERS: ACTIVITY ORDERS: Activity as tolerated WEIGHT BEARING STATUS: As tolerated DIET AFTER DISCHARGE: ADA CHECKS AFTER DISCHARGE: CHECKS AFTER DISCHARGE: Check blood press - daily, Check blood sugar, ac/hs, Weigh Yourself Daily TREATMENT/EQUIPMENT ORDERS: ADAPTIVE EQUIPMENT NEEDED: Wheelchair Physical Therapy For: Evalulation/Treatment Occupational Therapy For: Evaluation/Treatment DISCHARGE MEDICATIONS: Home Meds Active Scripts Hyoscyamine Sulfate (LEVSIN-SL) 0.125 Mg Tab.subl, 0.125 MG SL Q4-6HRS PRN for PAIN, #14 TAB Prov:DOMINGO SO DO 02/25/21 Famotidine (PEPCID) 20 Mg Tablet, 20 MG PO BID, #14 TAB Prov:DOMINGO SO DO 02/25/21 Ondansetron (ONDANSETRON ODT) 4 Mg Tab.rapdis, 1 TAB PO PRN Q6-8HRS PRN for NAUSEA, #16 TAB Prov:DOMINGO SO DO 02/25/21 Reported Medications Loperamide HCl (Imodium A-D) 2 Mg Capsule, 2 MG PO PRN Q8HRS PRN for DIARRHEA, CAP 07/09/20 Amiodarone Hcl (AMIODARONE HCL) 100 Mg Tablet, 1 TAB PO DAILY for arrhythmia for 30 Days, #30 TAB 0 Refills 07/09/20 Potassium Chloride (KLOR-CON 10) 10 Meq Tablet.er, 10 MEQ PO DAILY for hypokalelmia, TAB 20 D-Methorphan Hb/Prometh Hcl (PROMETHAZINE-DM SYRUP) 118 Ml Syrup, 5 ML PO PRN Q6HRS PRN for cough for 6 Days, #120 ML 0 Refills 07/09/20 Metoprolol Succinate (METOPROLOL SUCCINATE ( XL )) 25 Mg Tab.er.24h, 1 TAB PO DAILY for htn, #30 TAB 5 Refills 07/09/20 Levothyroxine Sodium (LEVOTHYROXINE SODIUM) 175 Mcg Tablet, 1 TAB PO DAILY for hypothyroidism, #30 TAB 5 Refills 07/09/20 Insulin Glargine,Hum.rec.anlog (LANTUS SOLOSTAR) 100 Unit/1 Ml Insuln.pen, 18 UNIT SQ QHS for dm, #15 ML 3 Refills 07/09/20 Apixaban (ELIQUIS) 2.5 Mg Tablet, 2.5 MG PO BID for blood thinner, TAB 07/09/20 Atorvastatin Calcium (ATORVASTATIN CALCIUM) 20 Mg Tablet, 20 MG PO HS for FOR CHOLESTEROL, #30 TAB 0 Refills 07/09/20 Carboxymethylcellulose Sodium (THERA TEARS) 15 Ml Drops, 1 DROP EACHEYE BID for DRY EYES, #30 ML 0 Refills 11/13/19 Benzonatate (BENZONATATE) 200 Mg Capsule, 200 MG PO TID PRN for COUGH, CAP 11/13/19 Hydralazine Hcl (HYDRALAZINE HCL) 25 Mg Tablet, 25 MG PO BID for , TAB 10/09/19 Acetaminophen (ACETAMINOPHEN) 500 Mg Tablet, 500 MG PO PRN Q6HRS PRN for PAIN, TAB 10/09/19 Trazodone Hcl (TRAZODONE HCL) 50 Mg Tablet, 50 MG PO PRN QHS for , TAB 10/09/19 Calcium Carbonate (TUMS) 300 Mg Tab.chew, 500 MG PO HS for , TAB.CHEW 10/09/19 Cetirizine Hcl (ZYRTEC) 10 Mg Tablet, 10 MG PO HS for , TAB 10/09/19 Ondansetron Hcl (ZOFRAN) 4 Mg Tablet, 1 TAB PO PRN Q6HRS for , #20 TAB 10/09/19 Amlodipine Besylate (AMLODIPINE BESYLATE) 5 Mg Tablet, 5 MG PO DAILY for hypertension, TAB take 1 tab every Sun, Mon, Wed, Fri 01/21/19 Tramadol Hcl (TRAMADOL HCL) 50 Mg Tablet, 50 MG PO Q8HRS PRN for PAIN, TAB 0 Refills 01/21/19 Melatonin (MELATONIN) 3 Mg Tablet, 2 TAB PO QHS for insominia, #30 TAB 2 Refills 01/21/19 Hydrocortisone (HYDROCORTISONE) 59 Ml Lotion, 1 COY TP BID for above shunt, #60 ML 01/21/19 Docusate Sodium (COLACE) 100 Mg Capsule, 1 CAP PO PRN DAILY PRN for CONSTIPATION, #30 CAP 01/21/19 Calcium Acetate (CALCIUM ACETATE) 667 Mg Tablet, 667 MG PO TIDWMEALS for DIALYSIS PATIENTS, CAP 01/21/19 Buspirone Hcl (BUSPIRONE HCL) 5 Mg Tablet, 1 TAB PO TID for agitation, #60 TAB 2 Refills 01/21/19 Quetiapine Fumarate (SEROQUEL) 50 Mg Tablet, 50 MG PO BID, TAB 06/21/18 Nystatin/Triamcin (NYSTATIN-TRIAMCINOLONE CREAM) 15 Gm Cream..g., 1 COY TP PRN PRN for REDNESS, #30 GM 1 Refill 06/21/18 Divalproex Sodium (DEPAKOTE ER) 250 Mg Tab.er.24h, 250 MG PO DAILY for , TAB.SR 06/21/18 Insulin Aspart (NOVOLOG FLEXPEN) 100 Unit/1 Ml Insuln.pen, 4 UNIT SQ TIDWMEALS for DM, SYR 06/21/18 Ergocalciferol (Vitamin D2) (VITAMIN D2) 50,000 Unit Capsule, 13777 UNIT PO DAILY, CAP 05/13/18 Donepezil Hcl (DONEPEZIL HCL) 10 Mg Tablet, 10 MG PO DAILY, TAB 05/13/18 Isosorbide Mononitrate (ISOSORBIDE MONONITRATE ER) 30 Mg Tab.er.24h, 1 TAB PO DAILY, #30 TAB 5 Refills 08/13/17 Multivitamin (MULTIVITAMINS) 1 Each Tablet, 1 TAB PO DAILY, #90 TAB 3 Refills 08/06/17 HOUSTON SILVER MD Aug 20, 2021 15:01
--- NOTE | 2021-08-20 17:05 | NUR ---
SW following. Discussed with RN, discharge orders faxed to [facility] [facility]. [facility] [place] arranged transportation for between [id number]. RN notified.
--- NOTE | 2021-08-20 18:06 | NUR ---
Patient escorted out by [facility] wheelchair servic. Report given to Enrique krishna Uehling. Belongigns with patient.
--- NOTE | 2021-08-20 23:46 | DS ---
DATE OF DISCHARGE: 08/20/2021 PRIMARY DIAGNOSIS: Acute psychosis. ADDITIONAL DIAGNOSES: 1. Unexplained hypotension on admission. 2. Noncompliance with psychiatric medicines prior to admission. 3. Diabetes. 4. End-stage renal disease, on dialysis. 5. Severe osteoarthritis of the knees. 6. Mobility deficits, multifactorial. CHIEF COMPLAINT AND HISTORY OF PRESENT ILLNESS: This 76-year-old female admitted with psychosis and hypotension of uncertain etiology at the time of admission. SUMMARY OF STAY: The patient was admitted, restarted her [facility] psychiatric medicines which she was refusing to take. Her mental status improved quickly to her baseline. Her hearing remained horrible she states it always is. She was having much more difficulties with transfers and ambulation. Therapy saw her and recommended skilled which will happen upon return to the [facility]. She received dialysis during this stay. Her hypotension resolved and no definite etiology of this was determined. She was felt ready for transfer back to [facility] on care home at the day of discharge and this was accomplished. DISPOSITION: The patient is discharged back to care home. ADA diet. Activity as tolerated. PT and OT to evaluate and treat. DISCHARGE MEDICATIONS: Listed on the med rec and have been addressed. KARAN/PERRY/FRANCHESCA DR: Katelynn TID: [id number]
== END 2021-08-20 18:00 | DRG 70 ==
LOC: ER 15:18 → 5 NORTH 16:57
PROVIDERS: ADMIT Family Medicine; ATTEND Family Medicine
PROC: 5A1D70Z Performance of Urinary Filtration, Intermittent, Less than 6 Hours Per Day (ICD-10-PCS; 2021-08-14)
PROC: 5A1D70Z Performance of Urinary Filtration, Intermittent, Less than 6 Hours Per Day (ICD-10-PCS; 2021-08-16)
PROC: 5A1D70Z Performance of Urinary Filtration, Intermittent, Less than 6 Hours Per Day (ICD-10-PCS; principal; 2021-08-19)
PROC: 5A1D70Z Performance of Urinary Filtration, Intermittent, Less than 6 Hours Per Day (ICD-10-PCS; 2021-08-19)
DX: G93.41 Metabolic encephalopathy (principal); N18.6 End stage renal disease; I13.2 Hypertensive heart and chronic kidney disease with heart failure and with stage 5 chronic kidney disease, or end stage renal disease; F23 Brief psychotic disorder; I95.9 Hypotension, unspecified; D64.9 Anemia, unspecified; E03.9 Hypothyroidism, unspecified; E11.22 Type 2 diabetes mellitus with diabetic chronic kidney disease; E11.42 Type 2 diabetes mellitus with diabetic polyneuropathy; E78.00 Pure hypercholesterolemia, unspecified; E78.5 Hyperlipidemia, unspecified; F02.80 Dementia in other diseases classified elsewhere, unspecified severity, without behavioral disturbance, psychotic disturbance, mood disturbance, and anxiety; F41.9 Anxiety disorder, unspecified; G30.9 Alzheimer's disease, unspecified; I27.20 Pulmonary hypertension, unspecified; I48.0 Paroxysmal atrial fibrillation; I50.9 Heart failure, unspecified; K21.9 Gastro-esophageal reflux disease without esophagitis; M17.0 Bilateral primary osteoarthritis of knee; M47.816 Spondylosis without myelopathy or radiculopathy, lumbar region; Z79.4 Long term (current) use of insulin; Z82.0 Family history of epilepsy and other diseases of the nervous system; Z87.11 Personal history of peptic ulcer disease; Z88.0 Allergy status to penicillin; Z88.1 Allergy status to other antibiotic agents; Z90.710 Acquired absence of both cervix and uterus; Z91.14 Patient's other noncompliance with medication regimen; Z95.0 Presence of cardiac pacemaker; Z99.2 Dependence on renal dialysis; E21.3 Hyperparathyroidism, unspecified; M19.90 Unspecified osteoarthritis, unspecified site; Z88.8 Allergy status to other drugs, medicaments and biological substances; F31.9 Bipolar disorder, unspecified
CPT/HCPCS: 36415; 71045; 73565; 74176; 80048; 80076; 82024; 82533; 82962; 83690; 83735; 83880; 84484; 85025; 86706; 87340; 87426; 93005; J1030; J1815; J3490; J7050; P9046; U0003; U0005; 99285-25; G0378; J7030

== ENCOUNTER 2021-12-09 22:38 | Inpatient (IN) | payer MEDICARE, OTHER ==
[~2021-12-09] VITALS: Ht 157.5 cm; Wt 62.0 kg
[~2021-12-09 22:38] MED LIST changes: -LISI-517 PO; +LISI5TAB15 PO
[2021-12-09] MEDS ORDERED: DEXTROSE 50% 25 GM / 50ML DISP.SYRIN. IV ONE ×2 (22:47→23:00)
--- NOTE | 2021-12-09 23:31 | RAD ---
Exam: Chest one view INDICATION: Altered mental status TECHNIQUE: Frontal view of the chest Comparisons: 08/13/2021 FINDINGS: The cardiomediastinal silhouette and pulmonary vessels are within normal limits. Hazy opacity at the lungs bilaterally greater in the right lung. No pleural effusion IMPRESSION: Findings which could relate to pulmonary edema versus atypical infectious process. Electronically signed by: Vadim Garza MD (12/09/2021 11:28 PM) AMAYA
[2021-12-10] VITALS (14 sets, daily range): BP systolic 99–149; BP diastolic 40–69
--- NOTE | 2021-12-10 | PHYS DOC ---
Past Medical History Past Medical History: Anemia, Anxiety, Arthritis, Bipolar, CHF, Dementia, Depression, Diabetes-Type II, GERD, High Cholesterol, Hypertension, Hypothyroid, Renal Failure Additional Past Medical Histor: major depressive disorder, Sick sinus synd, alzheimer's, Past Surgical History: Hysterectomy, Pacemaker Additional Past Surgical Histo: DIALYSIS SHUNT/FISTULA LEFT SIDE Smoking Status: Never Smoker Alcohol Use: None Drug Use: None General Adult EDM: Chief Complaint: HYPOGLYCEMIA HPI: HPI: Patient is a 76 year old female with history of diabetes type 2, hypertension, high cholesterol, CHF, dementia, depression, anxiety, end-stage kidney disease on dialysis Wednesday presenting today to be evaluated for hypoglycemia. Patient resides in a alf, EMS was called because she was unresponsive with glucose of 28, glucagon was given at the alf, glucose cameup 50, when EMS arrived they gave patient D10 100 mL, glucose came up to 114 then 278 in route to the ED. retirement staff reported to EMS patient had a glucose of 500 and was given 10 units of regular insulin this evening. They also report patient is recovering from COVID19. Patient herself has no complaints. She is awake but drowsy Review of Systems: Review of Systems: Constitutional: Denies fever or chills. [] Eyes: Denies change in visual acuity. [] HENT: Denies nasal congestion or sore throat. [] Respiratory: Denies cough or shortness of breath. [] Cardiovascular: Denies chest pain or edema. [] GI: Denies abdominal pain, nausea, vomiting, bloody stools or diarrhea. [] : Denies dysuria. [] Musculoskeletal: Denies back pain or joint pain. [] Integument: Denies rash. [] Neurologic: Altered mental status denies headache, focal weakness or sensory changes. [] Endocrine: Hypoglycemia Psychiatric: Denies depression or anxiety. [] Heart Score: C/O Chest Pain: N/A Risk Factors: Risk Factors: DM, Current or recent (<one month) smoker, HTN, HLP, family history of CAD, obesity. Risk Scores: Score 0 - 3: 2.5% MACE over next 6 weeks - Discharge Home Score 4 - 6: 20.3% MACE over next 6 weeks - Admit for Clinical Observation Score 7 - 10: 72.7% MACE over next 6 weeks - Early Invasive Strategies Current Medications: Current Medications Medications (Trade) Dose Ordered Sig/Angeles Start Time Stop Time Status Last Admin Dose Admin Dextrose (Dextrose 50%-Water Syringe) 25 gm 1X ONCE 12/09/21 23:00 12/09/21 23:01 DC 12/09/21 22:56 25 GM Allergies: Allergies: Allergies Coded Allergies Type Severity Reaction Last Updated Verified amoxicillin Allergy Intermediate 05/13/18 Yes clavulanic acid Allergy Intermediate 05/13/18 Yes Physical Exam: PE: Constitutional: Well developed, well nourished, no acute distress, non-toxic appearance. [] HENT: Normocephalic, atraumatic, bilateral external ears normal, oropharynx moist, no oral exudates, nose normal. [] Eyes: PERRLA, EOMI, conjunctiva normal, no discharge. [] Neck: Normal range of motion, no tenderness, supple, no stridor. [] Cardiovascular:Heart rate regular rhythm, no murmur [] Lungs & Thorax: Bilateral breath sounds clear to auscultation [] Abdomen: Bowel sounds normal, soft, no tenderness, no masses, no pulsatile masses. [] Skin: Warm, dry, no erythema, no rash. [] Back: No tenderness, no CVA tenderness. [] Extremities: No tenderness, no cyanosis, no clubbing, ROM intact, no edema. [] Neurologic: Drowsy but alert and oriented X 3, normal motor function, normal sensory function, no focal deficits noted. Cranial nerves II through XII intact Psychologic: Flat affect Current Patient Data: Labs: Laboratory Tests Test 12/09/21 22:46 12/09/21 23:21 Glucose (Fingerstick) 76 mg/dL (70-99) 200 mg/dL (70-99) H Vital Signs: Vital Signs Date Time Temp Pulse Resp B/P (MAP) Pulse Ox O2 Delivery O2 Flow Rate FiO2 12/09/21 22:45 99.0 73 16 128/58 (81) 98 Room Air 99.0 EKG: EK interpreted by Dr. Ruth sinus rhythm heart rate 70 no STEMI[] Radiology/Procedures: Radiology/Procedures: []PROCEDURE: PORTABLE CHEST 1V Exam: Chest one view INDICATION: Altered mental status TECHNIQUE: Frontal view of the chest Comparisons: 08/13/2021 FINDINGS: The cardiomediastinal silhouette and pulmonary vessels are within normal limits. Hazy opacity at the lungs bilaterally greater in the right lung. No pleural effusion IMPRESSION: Findings which could relate to pulmonary edema versus atypical infectious process. Electronically signed by: Vadim Bello MD (12/09/2021 11:28 PM) [facility] DICTATED and SIGNED BY: VADIM BELLO MD DATE: 12/09/21 [id number] 0 Course & Med Decision Making: Course & Med Decision Making Pertinent Labs and Imaging studies reviewed. (See chart for details) This is a 76-year-old female patient presenting to the ED today to be evaluated for altered mental status and hypoglycemia. She resides in a alf and her glucose was 28, alf staff gave her glucagon, it came up to 50, EMS given D510 it came up to 278. Glucose on arrival to the ED 76, patient was given D50. Glucose came up to 200 currently eating. CBC with a hemoglobin of 6.0 with hematocrit of 17.9, blood transfusion was ordered. BMP with no acute findings. Spoke with Dr. Reid who accepted patient for admission Ulysses Disclaimer: Ulysses Disclaimer: This electronic medical record was generated, in whole or in part, using a voice recognition dictation system. Departure Departure Impression: Primary Impression: ESRD (end stage renal disease) Additional Impressions: Hypoglycemia Anemia Qualified Codes: D64.9 - Anemia, unspecified Disposition: ADMITTED INPATIENT Condition: STABLE Referrals: HOUSTON REID MD (PCP) EMILI LIZARRAGA NEEDLE SETTER Dec 10, 2021 00:00
[2021-12-10 00:05] LABS: BASO % 0 % (0-3); EOS # 0.1 x10^3/uL (0.0-0.7); EOS % 1 % (0-3); LYMPH # 0.6 x10^3/uL (1.0-4.8); LYMPH % 11 % (24-48); MEAN CORPUSCULAR HEMOGLOBIN 36 pg (25-35); MEAN CORPUSCULAR HGB CONC 33 g/dL (31-37); MEAN CORPUSCULAR VOLUME 107 fL (79-100); MONO # 0.3 x10^3/uL (0.0-1.1); MONO % 6 % (0-9); NEUT # 4.4 x10^3/uL (1.8-7.7); NEUT % 81 % (31-73); PLATELET COUNT 69 x10^3/uL (140-400); RED BLOOD COUNT 1.68 x10^6/uL (3.50-5.40); WHITE BLOOD COUNT 5.4 x10^3/uL (4.0-11.0)
[2021-12-10 00:18] LABS: CALCIUM 8.4 mg/dL (8.5-10.1); GFR 2.8; POTASSIUM 4.3 mmol/L (3.5-5.1)
[2021-12-10 00:20] LABS: HEMATOCRIT 17.9 % (36.0-47.0)
[2021-12-10 00:23] LABS: ALBUMIN 2.2 g/dL (3.4-5.0); ALBUMIN/GLOBULIN RATIO 0.5 (1.0-1.7); MAGNESIUM 2.5 mg/dL (1.8-2.4); TOTAL BILIRUBIN 0.4 mg/dL (0.2-1.0); TOTAL PROTEIN 6.5 g/dL (6.4-8.2)
[2021-12-10] MEDS ORDERED: MORPHINE SULFATE 2 MG/ML INJ. IVP PRN (00:45)
[2021-12-10] MEDS ORDERED: DEXTROSE 50% 25 GM / 50ML DISP.SYRIN. IV PRN (00:45)
[2021-12-10] MEDS ORDERED: ONDANSETRON PF 4 MG/2 ML VIAL. IVP PRN (00:45)
--- NOTE | 2021-12-10 04:10 | NUR ---
per lab, additional work up needed due to antibody, will be 1-2 hours from now before complete.
--- NOTE | 2021-12-10 04:32 | EKG ---
[facility] [address] [place] [address] Test Date: 2021-12-09 Test Time: 23:05:12 Pat Name: HECTOR GRESHAM Department: Room: [facility] Gender: F Management Aide: : 1945 Requested By: EMILI LIZARRAGA Order Number: [id number] Reading MD: Jovany Lockhart Measurements Intervals [place] Rate: 70 P: DC: QRS: 135 QRSD: 88 T: 80 QT: 420 QTc: 457 Interpretive Statements SINUS RHYTHM QRS(T) CONTOUR ABNORMALITY CONSISTENT WITH HIGH LATERAL INFARCT AGE UNDETERMINED Electronically Signed On 12-10-2021 19:28:26 DIALYSIS REGISTERED NURSE by Jovany Lockhart
--- NOTE | 2021-12-10 07:35 | NUR ---
consult called to supervisor of communications nephrology
[2021-12-10] MEDS ORDERED: traZODone 50 MG TABLET. PO PRN (08:00)
[2021-12-10] MEDS ORDERED: ACETAMINOPHEN 500 MG TABLET PO PRN (08:00)
[2021-12-10] MEDS ORDERED: DOCUSATE SODIUM 100 MG CAPSULE. PO PRN (08:00)
[2021-12-10] MEDS ORDERED: traMADol 50 MG TABLET PO PRN (08:00)
[2021-12-10] MEDS ORDERED: ONDANSETRON ODT 4 MG TAB.RAPDIS. PO PRN ×2 (08:00→08:45)
[2021-12-10] MEDS ORDERED: LOPERAMIDE 2 MG CAPSULE PO PRN (08:00)
[2021-12-10] MEDS ORDERED: ANTI-COAG MONITOR BY PHARMACY. MC PRN (08:45)
[2021-12-10] MEDS: busPIRone 5 MG TABLET. PO SCH ×3 (09:26→22:32)
[2021-12-10] MEDS: hydrALAZINE 25 MG TABLET PO SCH ×2 (09:26→22:32)
[2021-12-10] MEDS: DONEPEZIL HCL 10 MG TABLET. PO SCH (09:26)
[2021-12-10] MEDS: QUEtiapine 25 MG TABLET. PO SCH ×2 (09:27→22:32)
[2021-12-10] MEDS: MULTIVITAMIN with MINERAL TABLET. PO SCH (09:27)
[2021-12-10] MEDS: POTASSIUM CHLORIDE 10 MEQ TABLET.ER. PO SCH (09:27)
[2021-12-10] MEDS: AMIODARONE HCL 200 MG TABLET. PO SCH (09:28)
[2021-12-10] MEDS: METOPROLOL SUCC 24HR ER 25 MG TAB.ER.24H. PO SCH (09:30)
[2021-12-10] MEDS: DIVALPROEX EXTENDED RELEASE 250 MG TAB.ER.24H. PO SCH (09:30)
[2021-12-10] MEDS: APIXABAN 2.5 MG TABLET. PO SCH ×2 (09:31→22:32)
[2021-12-10] MEDS: FAMOTIDINE 20 MG TABLET. PO SCH ×2 (09:31→22:32)
[2021-12-10] MEDS: ISOSORBIDE MONONITRATE ER 30 MG TAB.ER.24H PO SCH (09:31)
[2021-12-10] MEDS ORDERED: TRIAMCINOLONE ACETONIDE 0.1% TP PRN (09:45)
[2021-12-10] MEDS ORDERED: TRIAMCINOLONE ACETONIDE 0.1% TOPICAL CREAM 15GM TUBE. TP PRN (10:00)
--- NOTE | 2021-12-10 10:29 | PDOC2 ---
CONSULT Date of Consult Date of Consult DATE: 12/10/21 TIME: 10:29 Reason for Consult Reason for Consult: ESRD Identification/Chief Complaint Chief Complaint Drowsy, Unable to Obtain Source Source: Chart review History of Present Illness Reason for Visit: Patient is a 76 year old female with history of diabetes type 2, hypertension, high cholesterol, CHF, dementia, depression, anxiety, end-stage kidney disease on dialysis TTS presented to be evaluated for hypoglycemia. Patient resides in a care home, EMS was called because she was unresponsive with glucose of 28, glucagon was given at the care home, glucose came up 50, when EMS arrived they gave patient D10 100 mL, glucose came up to 114 then 278 in route to the ED. halfway staff reported to EMS patient had a glucose of 500 and was given 10 units of regular insulin this evening. They also report patient is recovering from COVID19. Patient herself has no complaints. She is drowsy. No reported N/V/D . No F/C. Patient unable to tell her last dialysis Past Medical History Cardiovascular: AFIB, CHF, HTN, Hyperlipidemia, Pulmonary hypertension, Other Pulmonary: No pertinent hx CENTRAL NERVOUS SYSTEM: Dementia, Periperal neuropathy GI: GERD, Peptic Ulcer disease Heme/Onc: Anemia NOS Hepatobiliary: No pertinent hx Psych: Anxiety, Bipolar, Depression Musculoskeletal: Osteoarthritis Rheumatologic: No pertinent hx Infectious disease: No pertinent hx Renal/: Chronic renal failure Endocrine: Diabetes, Hypothyroidism Past Surgical History Past Surgical History: Pacemaker, Hysterectomy Family History Family History: Alzheimer's Disease Social History ALCOHOL: none Drugs: None Lives: with Family Current Problem List Problem List Problems Medical Problems: (1) ESRD (end stage renal disease) Status: Acute (2) Hypoglycemia Status: Acute Current Medications Current Medications Current Medications Dextrose (Dextrose 50%-Water Syringe) 25 gm STK-MED ONCE IV ; Start 12/09/21 at 22:47; Stop 12/09/21 at 22:47; Status DC Dextrose (Dextrose 50%-Water Syringe) 25 gm 1X ONCE IV Last administered on 12/09/21at 22:56; Start 12/09/21 at 23:00; Stop 12/09/21 at 23:01; Status DC Ondansetron HCl (Zofran) 4 mg PRN Q8HRS PRN IVP NAUSEA/VOMITING; Start 12/10/21 at 00:45; Stop 12/11/21 at 00:44 Morphine Sulfate (Morphine Sulfate) 2 mg PRN Q2HR PRN IVP PAIN; Start 12/10/21 at 00:45; Stop 12/11/21 at 00:44 Dextrose (Dextrose 50%-Water Syringe) 12.5 gm PRN Q15MIN PRN IV SEE COMMENTS Last administered on 12/10/21at 07:53; Start 12/10/21 at 00:45 Acetaminophen (Tylenol) 500 mg PRN Q6HRS PRN PO PAIN; Start 12/10/21 at 08:00 Amlodipine Besylate (Norvasc) 5 mg DAILY PO Last administered on 12/10/21at 09:29; Start 12/10/21 at 09:00 Apixaban (Eliquis) 2.5 mg BID PO Last administered on 12/10/21at 09:31; Start 12/10/21 at 09:00 Atorvastatin Calcium (Lipitor) 20 mg HS PO ; Start 12/10/21 at 21:00 Buspirone HCl (Buspar) 5 mg TID PO Last administered on 12/10/21at 09:26; Start 12/10/21 at 09:00 Divalproex Sodium (Depakote Er) 250 mg DAILY PO Last administered on 12/10/21at 09:30; Start 12/10/21 at 09:00 Docusate Sodium (Colace) 100 mg PRN DAILY PRN PO CONSTIPATION; Start 12/10/21 at 08:00 Donepezil HCl (Aricept) 10 mg DAILY PO Last administered on 12/10/21at 09:26; Start 12/10/21 at 09:00 Famotidine (Pepcid) 20 mg BID PO Last administered on 12/10/21at 09:31; Start 12/10/21 at 09:00 Hydralazine HCl (Apresoline) 25 mg BID PO Last administered on 12/10/21at 09:26; Start 12/10/21 at 09:00 Isosorbide Mononitrate (Imdur) 30 mg DAILY PO Last administered on 12/10/21at 09:31; Start 12/10/21 at 09:00 Levothyroxine Sodium (Synthroid) 175 mcg DAILY06 PO ; Start 12/10/21 at 10:30 Loperamide HCl (Imodium) 2 mg PRN Q8HRS PRN PO DIARRHEA; Start 12/10/21 at 08:00 Metoprolol Succinate (Toprol Xl) 25 mg DAILY PO Last administered on 12/10/21at 09:30; Start 12/10/21 at 09:00 Ondansetron HCl (Zofran Odt) 4 mg PRN Q6HRS PRN PO NAUSEA; Start 12/10/21 at 08:00 Potassium Chloride (Klor-Con) 10 meq DAILY PO Last administered on 12/10/21at 09:27; Start 12/10/21 at 09:00 Tramadol HCl (Ultram) 50 mg PRN Q8HRS PRN PO MILD TO MODERATE PAIN; Start 12/10/21 at 08:00 Trazodone HCl (Desyrel) 50 mg PRN QHS PRN PO INSOMNIA; Start 12/10/21 at 08:00 Amiodarone HCl (Cordarone) 100 mg DAILY PO Last administered on 12/10/21at 09:28; Start 12/10/21 at 09:00 Calcium Acetate (Phoslo) 667 mg TIDWMEALS PO ; Start 12/10/21 at 12:00 Insulin Human Lispro (HumaLOG) 4 units TIDWMEALS SQ ; Start 12/10/21 at 12:00 Insulin Glargine (Lantus Syringe) 18 unit QHS SQ ; Start 12/10/21 at 21:00 Non-Formulary Medication (Melatonin ) 2 tab QHS PO ; Start 12/10/21 at 21:00; Status UNV Multivitamins (Thera M Plus) 1 tab DAILY PO Last administered on 12/10/21at 09:27; Start 12/10/21 at 09:00 Nystatin (Mycostatin) 1 jarvis PRN BID PRN TP REDNESS; Start 12/10/21 at 21:00 Ondansetron HCl (Zofran Odt) 4 mg PRN Q8HRS PRN PO NAUSEA/VOMITING; Start 12/10/21 at 08:45 Quetiapine Fumarate (SEROquel) 50 mg BID PO Last administered on 12/10/21at 09:27; Start 12/10/21 at 09:00 Info (Anti-Coagulation Monitoring By Pharmacy) 1 each PRN DAILY PRN MC PER PROTOCOL; Start 12/10/21 at 08:45 Triamcinolone Acetonide (Kenalog Cream Jar) 1 jarvis PRN BID PRN TP REDNESS; Start 12/10/21 at 09:45; Stop 12/10/21 at 09:47; Status DC Triamcinolone Acetonide (Kenalog 0.1%) 1 jarvis PRN BID PRN TP REDNESS; Start 12/10/21 at 10:00 Active Scripts Active Levsin-Sl (Hyoscyamine Sulfate) 0.125 Mg Tab.subl 0.125 Mg SL Q4-6HRS PRN Pepcid (Famotidine) 20 Mg Tablet 20 Mg PO BID Ondansetron Odt (Ondansetron) 4 Mg Tab.rapdis 1 Tab PO PRN Q6-8HRS PRN Reported Imodium A-D (Loperamide HCl) 2 Mg Capsule 2 Mg PO PRN Q8HRS PRN Amiodarone Hcl 100 Mg Tablet 1 Tab PO DAILY 30 Days Klor-Con 10 (Potassium Chloride) 10 Meq Tablet.er 10 Meq PO DAILY Promethazine-Dm Syrup (D-Methorphan Hb/Prometh Hcl) 118 Ml Syrup 5 Ml PO PRN Q6HRS PRN 6 Days Metoprolol Succinate ( Xl ) (Metoprolol Succinate) 25 Mg Tab.er.24h 1 Tab PO DAILY Levothyroxine Sodium 175 Mcg Tablet 1 Tab PO DAILY Lantus Solostar (Insulin Glargine,Hum.rec.anlog) 100 Unit/1 Ml Insuln.pen 18 Unit SQ QHS Eliquis (Apixaban) 2.5 Mg Tablet 2.5 Mg PO BID Atorvastatin Calcium 20 Mg Tablet 20 Mg PO HS Thera Tears (Carboxymethylcellulose Sodium) 15 Ml Drops 1 Drop EACHEYE BID Benzonatate 200 Mg Capsule 200 Mg PO TID PRN Hydralazine Hcl 25 Mg Tablet 25 Mg PO BID Acetaminophen 500 Mg Tablet 500 Mg PO PRN Q6HRS PRN Trazodone Hcl 50 Mg Tablet 50 Mg PO PRN QHS Tums (Calcium Carbonate) 300 Mg Tab.chew 500 Mg PO HS Zyrtec (Cetirizine Hcl) 10 Mg Tablet 10 Mg PO HS Zofran (Ondansetron Hcl) 4 Mg Tablet 1 Tab PO PRN Q6HRS Amlodipine Besylate 5 Mg Tablet 5 Mg PO DAILY take 1 tab every Sun, Mon, Wed, Fri Tramadol Hcl 50 Mg Tablet 50 Mg PO Q8HRS PRN Melatonin 3 Mg Tablet 2 Tab PO QHS Hydrocortisone 59 Ml Lotion 1 Jarvis TP BID Colace (Docusate Sodium) 100 Mg Capsule 1 Cap PO PRN DAILY PRN Calcium Acetate 667 Mg Tablet 667 Mg PO TIDWMEALS Buspirone Hcl 5 Mg Tablet 1 Tab PO TID Seroquel (Quetiapine Fumarate) 50 Mg Tablet 50 Mg PO BID Nystatin-Triamcinolone Cream (Nystatin/Triamcin) 15 Gm Cream..g. 1 Jarvis TP PRN PRN Depakote Er (Divalproex Sodium) 250 Mg Tab.er.24h 250 Mg PO DAILY Novolog Flexpen (Insulin Aspart) 100 Unit/1 Ml Insuln.pen 4 Unit SQ TIDWMEALS Vitamin D2 (Ergocalciferol (Vitamin D2)) 50,000 Unit Capsule 50,000 Unit PO DAILY Donepezil Hcl 10 Mg Tablet 10 Mg PO DAILY Isosorbide Mononitrate Er (Isosorbide Mononitrate) 30 Mg Tab.er.24h 1 Tab PO DAILY Multivitamins (Multivitamin) 1 Each Tablet 1 Tab PO DAILY Allergies Allergies: Coded Allergies: amoxicillin (Verified Allergy, Intermediate, 05/13/18) clavulanic acid (Verified Allergy, Intermediate, 05/13/18) ROS Review of System As per HPI, rest of the ROS is negative Physical Exam Physical Exam General NAD , Drowsy HEEN OM moist Neck Supple Lungs CTA B, Non labored CV RRR Abd Soft, NT , BS + Ext No LE edema No meza Neuro Grossly Normal Derm No Rash Vital Signs Vital Signs Date Time Temp Pulse Resp B/P (MAP) Pulse Ox O2 Delivery O2 Flow Rate FiO2 12/10/21 10:10 98.1 60 16 140/52 98.1 12/10/21 07:00 100 Room Air Assessment & Plan ESRD on HD at [facility] under Dr Metzger TTS , Not sure when was her last dialysis. Labs on 12/09 with elevated BUN; No labs this morning. Dialysis today. Discussed treatment plan with [facility] Anemia- Significant drop in Hgb , <7 , receiving PRBC. Tsats at goal. Defer to Primary/GI Hx of Bipolar/Attention seeking behavior per Dr. Metzger DM- Uncontrolled. Low BS at [place] with AMS. Primary managing HTN- BP stable Recovering COVID 19 positive per [place] report Labs Labs Laboratory Tests Test 12/09/21 22:46 12/09/21 23:21 12/09/21 23:40 12/10/21 00:20 Glucose (Fingerstick) 76 mg/dL (70-99) 200 mg/dL (70-99) 183 mg/dL (70-99) White Blood Count 5.4 x10^3/uL (4.0-11.0) Red Blood Count 1.68 x10^6/uL (3.50-5.40) Hemoglobin 6.0 g/dL (12.0-15.5) Hematocrit 17.9 % (36.0-47.0) Mean Corpuscular Volume 107 fL (79-100) Mean Corpuscular Hemoglobin 36 pg (25-35) Mean Corpuscular Hemoglobin Concent 33 g/dL (31-37) Red Cell Distribution Width 16.0 % (11.5-14.5) Platelet Count 69 x10^3/uL (140-400) Neutrophils (%) (Auto) 81 % (31-73) Lymphocytes (%) (Auto) 11 % (24-48) Monocytes (%) (Auto) 6 % (0-9) Eosinophils (%) (Auto) 1 % (0-3) Basophils (%) (Auto) 0 % (0-3) Neutrophils # (Auto) 4.4 x10^3/uL (1.8-7.7) Lymphocytes # (Auto) 0.6 x10^3/uL (1.0-4.8) Monocytes # (Auto) 0.3 x10^3/uL (0.0-1.1) Eosinophils # (Auto) 0.1 x10^3/uL (0.0-0.7) Basophils # (Auto) 0.0 x10^3/uL (0.0-0.2) Sodium Level 141 mmol/L (136-145) Potassium Level 4.3 mmol/L (3.5-5.1) Chloride Level 99 mmol/L (98-107) Carbon Dioxide Level 25 mmol/L (21-32) Anion Gap 17 (6-14) Blood Urea Nitrogen 108 mg/dL (7-20) Creatinine 13.0 mg/dL (0.6-1.0) Estimated GFR (Cockcroft-Gault) 2.8 BUN/Creatinine Ratio 8 (6-20) Glucose Level 334 mg/dL (70-99) Calcium Level 8.4 mg/dL (8.5-10.1) Magnesium Level 2.5 mg/dL (1.8-2.4) Total Bilirubin 0.4 mg/dL (0.2-1.0) Aspartate Amino Transf (AST/SGOT) 16 U/L (15-37) Alanine Aminotransferase (ALT/SGPT) 14 U/L (14-59) Alkaline Phosphatase 63 U/L (46-116) Troponin I High Sensitivity 19 ng/L (4-50) GU-Hcu-Y-Type Natriuretic Peptide 37084 pg/mL (0-124) Total Protein 6.5 g/dL (6.4-8.2) Albumin 2.2 g/dL (3.4-5.0) Albumin/Globulin Ratio 0.5 (1.0-1.7) Test 12/10/21 01:55 12/10/21 02:25 12/10/21 03:33 12/10/21 05:55 SARS-CoV-2 Antigen (Rapid) Negative (NEGATIVE) Troponin I High Sensitivity 19 ng/L (4-50) 21 ng/L (4-50) Glucose (Fingerstick) 177 mg/dL (70-99) Iron Level 125 ug/dL (50-170) Total Iron Binding Capacity 221 ug/dL (250-450) Iron Saturation 57 % (15-34) Vitamin B12 Level 1925 pg/mL (247-911) Test 12/10/21 07:45 12/10/21 08:05 12/10/21 10:12 Glucose (Fingerstick) 63 mg/dL (70-99) 74 mg/dL (70-99) 98 mg/dL (70-99) Laboratory Tests Test 12/09/21 22:46 12/09/21 23:21 12/09/21 23:40 12/10/21 00:20 Glucose (Fingerstick) 76 mg/dL (70-99) 200 mg/dL (70-99) 183 mg/dL (70-99) White Blood Count 5.4 x10^3/uL (4.0-11.0) Red Blood Count 1.68 x10^6/uL (3.50-5.40) Hemoglobin 6.0 g/dL (12.0-15.5) Hematocrit 17.9 % (36.0-47.0) Mean Corpuscular Volume 107 fL (79-100) Mean Corpuscular Hemoglobin 36 pg (25-35) Mean Corpuscular Hemoglobin Concent 33 g/dL (31-37) Red Cell Distribution Width 16.0 % (11.5-14.5) Platelet Count 69 x10^3/uL (140-400) Neutrophils (%) (Auto) 81 % (31-73) Lymphocytes (%) (Auto) 11 % (24-48) Monocytes (%) (Auto) 6 % (0-9) Eosinophils (%) (Auto) 1 % (0-3) Basophils (%) (Auto) 0 % (0-3) Neutrophils # (Auto) 4.4 x10^3/uL (1.8-7.7) Lymphocytes # (Auto) 0.6 x10^3/uL (1.0-4.8) Monocytes # (Auto) 0.3 x10^3/uL (0.0-1.1) Eosinophils # (Auto) 0.1 x10^3/uL (0.0-0.7) Basophils # (Auto) 0.0 x10^3/uL (0.0-0.2) Sodium Level 141 mmol/L (136-145) Potassium Level 4.3 mmol/L (3.5-5.1) Chloride Level 99 mmol/L (98-107) Carbon Dioxide Level 25 mmol/L (21-32) Anion Gap 17 (6-14) Blood Urea Nitrogen 108 mg/dL (7-20) Creatinine 13.0 mg/dL (0.6-1.0) Estimated GFR (Cockcroft-Gault) 2.8 BUN/Creatinine Ratio 8 (6-20) Glucose Level 334 mg/dL (70-99) Calcium Level 8.4 mg/dL (8.5-10.1) Magnesium Level 2.5 mg/dL (1.8-2.4) Total Bilirubin 0.4 mg/dL (0.2-1.0) Aspartate Amino Transf (AST/SGOT) 16 U/L (15-37) Alanine Aminotransferase (ALT/SGPT) 14 U/L (14-59) Alkaline Phosphatase 63 U/L (46-116) Troponin I High Sensitivity 19 ng/L (4-50) CY-Zwh-B-Type Natriuretic Peptide 41131 pg/mL (0-124) Total Protein 6.5 g/dL (6.4-8.2) Albumin 2.2 g/dL (3.4-5.0) Albumin/Globulin Ratio 0.5 (1.0-1.7) Test 12/10/21 01:55 12/10/21 02:25 12/10/21 03:33 12/10/21 05:55 SARS-CoV-2 Antigen (Rapid) Negative (NEGATIVE) Troponin I High Sensitivity 19 ng/L (4-50) 21 ng/L (4-50) Glucose (Fingerstick) 177 mg/dL (70-99) Iron Level 125 ug/dL (50-170) Total Iron Binding Capacity 221 ug/dL (250-450) Iron Saturation 57 % (15-34) Vitamin B12 Level 1925 pg/mL (247-911) Test 12/10/21 07:45 12/10/21 08:05 12/10/21 10:12 Glucose (Fingerstick) 63 mg/dL (70-99) 74 mg/dL (70-99) 98 mg/dL (70-99) Review All relevant outside records, renal labs, imaging studies, telemetry/EKG's were reviewed. Images Images Altered mental status TECHNIQUE: Frontal view of the chest Comparisons: 08/13/2021 FINDINGS: The cardiomediastinal silhouette and pulmonary vessels are within normal limits. Hazy opacity at the lungs bilaterally greater in the right lung. No pleural effusion IMPRESSION: Findings which could relate to pulmonary edema versus atypical infectious process. JUAN CARLOS SONI MD Dec 10, 2021 10:29
[2021-12-10] MEDS: LEVOTHYROXINE 175 MCG TABLET PO SCH (10:30)
--- NOTE | 2021-12-10 11:04 | NUR ---
SW following. Discussed with RN. 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 Pt getting blood today. Nephrology following. SW will continue to follow.
[2021-12-10] MEDS: CALCIUM ACETATE 667 MG CAPSULE PO SCH ×2 (12:00→17:00)
[2021-12-10] MEDS: INSULIN LISPRO 300 UNITS/3 ML VIAL. SQ SCH ×2 (12:00→17:00)
[2021-12-10] MEDS ORDERED: DIALYSIS PATIENT. MC PRN (15:15)
[2021-12-10] MEDS ORDERED: IV NORMAL SALINE 1000ML BAG 1,000 ML IV PRN ×2 (15:15)
--- NOTE | 2021-12-10 19:56 | HP ---
DATE OF SERVICE: 12/10/2021 ADMIT DATE: 12/10/2021 HISTORY OF PRESENT ILLNESS: This is a 76-year-old female, resident at [facility], well known to me from followup for over 30 years. The patient was unresponsive on the day of admission, found to have a blood sugar in the low 20s, was given glucagon and then dextrose IV on the way ambulance ride to the hospital. She was admitted for the same with also the finding of an unexpected macrocytic anemia with a hemoglobin of 6 for transfusion. PAST MEDICAL HISTORY: Remarkable for long-standing diabetes, bipolar, depression, very poor hearing; osteoarthritis, particularly of the knees; hypothyroidism, hypertension, end-stage renal disease, on dialysis. She has a history of sick sinus syndrome and has a pacemaker as a result and has had a prior hysterectomy and dialysis fistula in her left arm. MEDICATIONS: Brought with the patient, listed on the computer have been addressed. ALLERGIES: SHE IS ALLERGIC TO AUGMENTIN. SOCIAL HISTORY: She is a lifetime nonsmoker, nondrinker, does not use drugs, is , has a very supportive family. FAMILY HISTORY: Noncontributory. REVIEW OF SYSTEMS: Remarkable for her feeling overall weaker than normal. She still complains of knee pain. Denies any chest pain, shortness of breath. PHYSICAL EXAMINATION: GENERAL: She is a well-developed, well-nourished, pleasant female, nontoxic appearing, no acute distress, lying in bed. VITAL SIGNS: Stable. She is afebrile. HEAD, EYES, EARS, NOSE AND THROAT: Remarkable for pallor of the conjunctiva. NECK: Supple, without adenopathy or thyromegaly. CHEST: Clear to auscultation and percussion. HEART: Regular rate and rhythm without S3, S4 or murmur. ABDOMEN: Soft, nontender, without hepatosplenomegaly or masses. EXTREMITIES: Without cyanosis, clubbing, edema. NEUROLOGIC: Intact. LABORATORY DATA: Again, initial hemoglobin is 6.0. Her MCV is 107. We will check B12 and we will check folate; however, the lab does not offer that as a test any longer. We will also check iron profile. ASSESSMENT: 1. Severe hypoglycemia with resuscitation as noted above. 2. Unexpected severe anemia. 3. End-stage renal disease. 4. Diabetes. PLAN: Continue to follow sugars. We will need to probably decrease insulin dosage a little, although the patient is very often at the half-way. Has very high sugars sometimes, she has a lot of dietary indiscretion. I do notice she is COVID positive and would believe that maybe decreased appetite related to the same as part of this overall presentation. I am thus going to decrease her doses of insulin during this stay. I did discuss over the phone everything with the son. He is also concerned about some tremor that she seems to have recently and we will look at this further, although I did not notice during my exam a significant tremor. JOI/ROCHELLE DR: Katelynn TID: [id number]
[2021-12-10 20:28] LABS: HEMATOCRIT 31.3 % (36.0-47.0); HEMOGLOBIN 10.5 g/dL (12.0-15.5)
[2021-12-10] MEDS ORDERED: NYSTATIN 100,000 UNIT/GM TOPICAL CREAM 15GM TUBE. TP PRN (21:00)
[2021-12-10] MEDS ORDERED: INSULIN GLARGINE SYRINGE. SQ SCH (21:00)
[2021-12-10] MEDS ORDERED: NON FORMULARY ITEM (Melatonin 2 TAB) PO SCH (21:00)
[2021-12-10] MEDS: INSULIN GLARGINE SYRINGE. SQ SCH (21:00)
[2021-12-10] MEDS: ATORVASTATIN CALCIUM 20 MG TABLET PO SCH (22:32)
[2021-12-11 03:00] VITALS: BP 107/54
[2021-12-11 07:00] VITALS: BP 101/45
[2021-12-11] MEDS ORDERED: DIALYSIS PATIENT. MC PRN ×2 (07:45)
[2021-12-11] MEDS ORDERED: IV NORMAL SALINE 1000ML BAG 1,000 ML IV PRN ×2 (07:45)
[2021-12-11] MEDS: INSULIN LISPRO 300 UNITS/3 ML VIAL. SQ SCH ×3 (08:00→17:00)
[2021-12-11] MEDS: AMIODARONE HCL 200 MG TABLET. PO SCH (09:00)
[2021-12-11] MEDS: ISOSORBIDE MONONITRATE ER 30 MG TAB.ER.24H PO SCH (09:00)
--- NOTE | 2021-12-11 09:41 | PDOC ---
DATE OF SERVICE DATE: 12/11/21 TIME: 09:40 SUBJECTIVE ROS No complaints during dialysis, More alert. Sitting up in bed OBJECTIVE Vital Signs Vital Signs Date Time Temp Pulse Resp B/P (MAP) Pulse Ox O2 Delivery O2 Flow Rate FiO2 12/11/21 07:00 97.7 68 14 101/45 (63) 94 Room Air 97.7 I & 0 Intake and Output 12/11/21 07:00 Intake Total 105 ml Balance 105 ml Intake Oral 0 ml Blood Product IV Normal Saline Flush 105 ml # Bowel Movements 1 PHYSICAL EXAM Physical Exam General NAD HEEN OM moist Neck Supple Lungs CTA B, Non labored CV RRR Abd Soft, NT , BS + Ext No LE edema No meza Neuro Grossly Normal Derm No Rash DIAGNOSIS/ASSESSMENT Assessment & Plan ESRD on HD at [facility] under Dr Metzger TTS , Dialyzed yesterday urgently 2/2 AMS and abnormal labs . Dialysis today per TTS schedule, Seen during treatment , tolerating well. Continue as ordered. Dw [facility] Anemia- Significant drop in Hgb POA <7 , S/P PRBC. Tsats at goal. Hgb improved and stable today Hx of Bipolar/Attention seeking behavior per Dr. Metzger DM- Uncontrolled. Low BS at [place] with AMS. Primary managing HTN- BP stable Recovering COVID 19 positive per [place] report COMMENT/RELEVANT DATA Meds Current Medications Medications (Trade) Dose Ordered Sig/Angeles Start Time Stop Time Status Last Admin Dose Admin Acetaminophen (Tylenol) 500 mg PRN Q6HRS PRN 12/10/21 08:00 Amiodarone HCl (Cordarone) 100 mg DAILY 12/10/21 09:00 12/10/21 09:28 100 MG Amlodipine Besylate (Norvasc) 5 mg DAILY 12/10/21 09:00 12/10/21 09:29 5 MG Apixaban (Eliquis) 2.5 mg BID 12/10/21 09:00 12/10/21 22:32 2.5 MG Atorvastatin Calcium (Lipitor) 20 mg HS 12/10/21 21:00 12/10/21 22:32 20 MG Buspirone HCl (Buspar) 5 mg TID 12/10/21 09:00 12/10/21 22:32 5 MG Calcium Acetate (Phoslo) 667 mg TIDWMEALS 12/10/21 12:00 Dextrose (Dextrose 50%-Water Syringe) 12.5 gm PRN Q15MIN PRN 12/10/21 00:45 12/10/21 07:53 12.5 GM Divalproex Sodium (Depakote Er) 250 mg DAILY 12/10/21 09:00 12/10/21 09:30 250 MG Docusate Sodium (Colace) 100 mg PRN DAILY PRN 12/10/21 08:00 Donepezil HCl (Aricept) 10 mg DAILY 12/10/21 09:00 12/10/21 09:26 10 MG Famotidine (Pepcid) 20 mg BID 12/10/21 09:00 12/10/21 22:32 20 MG Hydralazine HCl (Apresoline) 25 mg BID 12/10/21 09:00 12/10/21 22:32 25 MG Info (Anti-Coagulation Monitoring By Pharmacy) 1 each PRN DAILY PRN 12/10/21 08:45 Info (PHARMACY MONITORING -- do not chart) 1 each PRN DAILY PRN 12/11/21 07:45 Insulin Glargine (Lantus Syringe) 12 unit QHS 12/10/21 21:00 Insulin Human Lispro (HumaLOG) 4 units TIDWMEALS 12/10/21 12:00 Isosorbide Mononitrate (Imdur) 30 mg DAILY 12/10/21 09:00 12/10/21 09:31 30 MG Levothyroxine Sodium (Synthroid) 175 mcg DAILY06 12/10/21 10:30 Loperamide HCl (Imodium) 2 mg PRN Q8HRS PRN 12/10/21 08:00 Metoprolol Succinate (Toprol Xl) 25 mg DAILY 12/10/21 09:00 12/10/21 09:30 25 MG Morphine Sulfate (Morphine Sulfate) 2 mg PRN Q2HR PRN 12/10/21 00:45 12/11/21 00:44 DC Multivitamins (Thera M Plus) 1 tab DAILY 12/10/21 09:00 12/10/21 09:27 1 TAB Non-Formulary Medication (Melatonin ) 2 tab QHS 12/10/21 21:00 UNV Nystatin (Mycostatin) 1 alex PRN BID PRN 12/10/21 21:00 Ondansetron HCl (Zofran Odt) 4 mg PRN Q8HRS PRN 12/10/21 08:45 Cancel Ondansetron HCl (Zofran) 4 mg PRN Q8HRS PRN 12/10/21 00:45 12/11/21 00:44 DC Potassium Chloride (Klor-Con) 10 meq DAILY 12/10/21 09:00 12/10/21 09:27 10 MEQ Quetiapine Fumarate (SEROquel) 50 mg BID 12/10/21 09:00 12/10/21 22:32 50 MG Sodium Chloride 1,000 ml @ 400 mls/hr Q2H30M PRN 12/11/21 07:45 12/11/21 19:44 Tramadol HCl (Ultram) 50 mg PRN Q8HRS PRN 12/10/21 08:00 Trazodone HCl (Desyrel) 50 mg PRN QHS PRN 12/10/21 08:00 Triamcinolone Acetonide (Kenalog 0.1%) 1 alex PRN BID PRN 12/10/21 10:00 Triamcinolone Acetonide (Kenalog Cream Jar) 1 alex PRN BID PRN 12/10/21 09:45 12/10/21 09:47 DC Lab Laboratory Tests Test 12/10/21 10:12 12/10/21 20:05 12/10/21 20:36 12/11/21 00:56 Glucose (Fingerstick) 98 mg/dL (70-99) 84 mg/dL (70-99) 128 mg/dL (70-99) Hemoglobin 10.5 g/dL (12.0-15.5) Hematocrit 31.3 % (36.0-47.0) Mean Corpuscular Hemoglobin Concent 34 g/dL (31-37) Results All relevant outside records, renal labs, imaging studies, telemetry/EKG's were reviewed. Justicifation of Admission Dx: Justifications for Admission: Justification of Admission Dx: Yes Acute Renal Failure: Serum Cr > 4mg/dL JUAN CARLOS SONI MD Dec 11, 2021 09:41
[2021-12-11 11:40] LABS: ALBUMIN 2.2 g/dL (3.4-5.0); ALBUMIN/GLOBULIN RATIO 0.6 (1.0-1.7); CALCIUM 7.3 mg/dL (8.5-10.1); CREATININE 3.3 mg/dL (0.6-1.0); GFR 13.7; POTASSIUM 3.6 mmol/L (3.5-5.1); TOTAL BILIRUBIN 0.4 mg/dL (0.2-1.0)
[2021-12-11 11:44] LABS: BASO % 1 % (0-3); EOS # 0.2 x10^3/uL (0.0-0.7); EOS % 5 % (0-3); HEMATOCRIT 31.1 % (36.0-47.0); HEMOGLOBIN 10.4 g/dL (12.0-15.5); LYMPH # 1.3 x10^3/uL (1.0-4.8); LYMPH % 31 % (24-48); MEAN CORPUSCULAR HEMOGLOBIN 33 pg (25-35); MEAN CORPUSCULAR HGB CONC 33 g/dL (31-37); MEAN CORPUSCULAR VOLUME 99 fL (79-100); MONO # 0.3 x10^3/uL (0.0-1.1); MONO % 8 % (0-9); NEUT # 2.4 x10^3/uL (1.8-7.7); NEUT % 56 % (31-73); PLATELET COUNT 74 x10^3/uL (140-400); RED BLOOD COUNT 3.15 x10^6/uL (3.50-5.40); WHITE BLOOD COUNT 4.3 x10^3/uL (4.0-11.0)
[2021-12-11] MEDS: CALCIUM ACETATE 667 MG CAPSULE PO SCH ×3 (12:00→17:00)
[2021-12-11] MEDS: busPIRone 5 MG TABLET. PO SCH ×3 (14:00→20:34)
[2021-12-11 15:00] VITALS: BP 114/32
[2021-12-11] MEDS: APIXABAN 2.5 MG TABLET. PO SCH ×2 (15:24→21:37)
[2021-12-11] MEDS: MULTIVITAMIN with MINERAL TABLET. PO SCH (15:24)
[2021-12-11] MEDS: FAMOTIDINE 20 MG TABLET. PO SCH (15:24)
[2021-12-11] MEDS: POTASSIUM CHLORIDE 10 MEQ TABLET.ER. PO SCH (15:24)
[2021-12-11] MEDS: DONEPEZIL HCL 10 MG TABLET. PO SCH (15:24)
[2021-12-11] MEDS: LEVOTHYROXINE 175 MCG TABLET PO SCH (15:24)
[2021-12-11] MEDS: DIVALPROEX EXTENDED RELEASE 250 MG TAB.ER.24H. PO SCH (15:25)
[2021-12-11] MEDS: QUEtiapine 25 MG TABLET. PO SCH ×2 (15:25→21:38)
[2021-12-11] MEDS: hydrALAZINE 25 MG TABLET PO SCH ×2 (15:26→20:33)
[2021-12-11] MEDS: METOPROLOL SUCC 24HR ER 25 MG TAB.ER.24H. PO SCH (15:28)
--- NOTE | 2021-12-11 17:30 | NUR ---
INSULIN HELD AT THIS TIME PATIENT DID NOT CONSUME DINNER, FINGERSTICK BLOOD GLUCOSE 128, WILL MONITOR.
--- NOTE | 2021-12-11 18:59 | PN ---
DATE: 12/11/2021 DAILY PROGRESS NOTE LOCATION: She is in room 580. SUBJECTIVE: This 76-year-old female remains hospitalized after severe hypoglycemia and incidentally found to have a hemoglobin of 6. She has received blood with her hemoglobin up to 10 this morning. Renal is following along with her dialysis and sugars have been decent with the decreased insulin doses and no further severe hypoglycemia at all, though upon seeing her eat breakfast this morning, she was not eating much. OBJECTIVE: VITAL SIGNS: Stable. She is afebrile. GENERAL: She is awake and alert, hard of hearing. CHEST: Clear to auscultation and percussion. HEART: Regular rate and rhythm. ABDOMEN: Soft, nontender, without hepatosplenomegaly or mass. EXTREMITIES: Without cyanosis, clubbing, edema. NEUROLOGIC: She is intact. IMPRESSION: 1. Hypoglycemia with decreasing insulin doses, currently stable. 2. Anemia, improved, status post transfusion with no good answer for why with normal iron levels, B12 level and I am sure she is getting erythropoietin through dialysis. PLAN: Observe at least through today with discharge tomorrow and we will order insulin doses if remains stable. CARMITA DR: Katelynn TID: [id number]
[2021-12-11 19:47] VITALS: BP 88/37
[2021-12-11] MEDS ORDERED: IV NORMAL SALINE 500ML BAG 500 ML IV ONE (20:00)
[2021-12-11] MEDS: INSULIN GLARGINE SYRINGE. SQ SCH (20:35)
[2021-12-11] MEDS: ATORVASTATIN CALCIUM 20 MG TABLET PO SCH (21:38)
[2021-12-11 21:47] VITALS: BP 95/39
[2021-12-11 23:22] VITALS: BP 150/42
[2021-12-12 03:21] VITALS: BP 103/39
[2021-12-12] MEDS: LEVOTHYROXINE 175 MCG TABLET PO SCH (05:47)
[2021-12-12 07:00] VITALS: BP 134/42
[2021-12-12] MEDS: ISOSORBIDE MONONITRATE ER 30 MG TAB.ER.24H PO SCH (09:00)
[2021-12-12] MEDS: AMIODARONE HCL 200 MG TABLET. PO SCH (09:00)
[2021-12-12] MEDS: METOPROLOL SUCC 24HR ER 25 MG TAB.ER.24H. PO SCH (09:00)
[2021-12-12] MEDS: DIVALPROEX EXTENDED RELEASE 250 MG TAB.ER.24H. PO SCH (09:15)
[2021-12-12] MEDS: QUEtiapine 25 MG TABLET. PO SCH ×2 (09:16→21:35)
[2021-12-12] MEDS: busPIRone 5 MG TABLET. PO SCH ×3 (09:16→21:35)
[2021-12-12] MEDS: DONEPEZIL HCL 10 MG TABLET. PO SCH (09:16)
[2021-12-12] MEDS: POTASSIUM CHLORIDE 10 MEQ TABLET.ER. PO SCH (09:17)
[2021-12-12] MEDS: MULTIVITAMIN with MINERAL TABLET. PO SCH (09:17)
[2021-12-12] MEDS: CALCIUM ACETATE 667 MG CAPSULE PO SCH ×3 (09:17→17:53)
[2021-12-12] MEDS: APIXABAN 2.5 MG TABLET. PO SCH ×2 (09:17→21:34)
[2021-12-12] MEDS: INSULIN LISPRO 300 UNITS/3 ML VIAL. SQ SCH ×3 (09:21→17:00)
--- NOTE | 2021-12-12 10:43 | PDOC ---
DATE OF SERVICE DATE: 12/12/21 TIME: 10:41 SUBJECTIVE ROS No complaints , sitting up in bed. Denies SOB, No N/V OBJECTIVE Vital Signs Vital Signs Date Time Temp Pulse Resp B/P (MAP) Pulse Ox O2 Delivery O2 Flow Rate FiO2 12/12/21 07:00 97.7 53 16 134/42 (72) 100 Room Air 97.7 I & 0 Intake and Output 12/12/21 07:00 Intake Total 0 ml Balance 0 ml Intake Oral 0 ml # Bowel Movements 1 PHYSICAL EXAM Physical Exam General NAD HEEN OM moist Neck Supple Lungs CTA B, Non labored CV RRR Abd Soft, NT , BS + Ext No LE edema No meza Neuro Grossly Normal Derm No Rash DIAGNOSIS/ASSESSMENT Assessment & Plan ESRD on HD at [facility] under Dr Metzger TTS , Dialyzed emergently on 12/10 and again yesterday . Currently no indication for dialysis today . Resume Dialysis at [facility] OP unit on 12/13 if dced today Anemia- Significant drop in Hgb POA <7 , S/P PRBC. Tsats at goal. Hgb improved and stable Hx of Bipolar/Attention seeking behavior per Dr. Metzger DM- Uncontrolled. Low BS at [place] with AMS. Primary managing HTN- BP stable Recovering COVID 19 positive per [place] report COMMENT/RELEVANT DATA Meds Current Medications Medications (Trade) Dose Ordered Sig/Angeles Start Time Stop Time Status Last Admin Dose Admin Acetaminophen (Tylenol) 500 mg PRN Q6HRS PRN 12/10/21 08:00 Amiodarone HCl (Cordarone) 100 mg DAILY 12/10/21 09:00 12/10/21 09:28 100 MG Amlodipine Besylate (Norvasc) 5 mg DAILY 12/10/21 09:00 12/12/21 08:14 DC 12/10/21 09:29 5 MG Apixaban (Eliquis) 2.5 mg BID 12/10/21 09:00 12/12/21 09:17 2.5 MG Atorvastatin Calcium (Lipitor) 20 mg HS 12/10/21 21:00 12/11/21 21:38 20 MG Buspirone HCl (Buspar) 5 mg TID 12/10/21 09:00 12/12/21 09:16 5 MG Calcium Acetate (Phoslo) 667 mg TIDWMEALS 12/10/21 12:00 12/12/21 09:17 667 MG Dextrose (Dextrose 50%-Water Syringe) 12.5 gm PRN Q15MIN PRN 12/10/21 00:45 12/10/21 07:53 12.5 GM Divalproex Sodium (Depakote Er) 250 mg DAILY 12/10/21 09:00 12/12/21 09:15 250 MG Docusate Sodium (Colace) 100 mg PRN DAILY PRN 12/10/21 08:00 Donepezil HCl (Aricept) 10 mg DAILY 12/10/21 09:00 12/12/21 09:16 10 MG Famotidine (Pepcid) 20 mg Q48H 12/12/21 21:00 Hydralazine HCl (Apresoline) 25 mg BID 12/10/21 09:00 12/12/21 08:14 DC 12/10/21 22:32 25 MG Info (Anti-Coagulation Monitoring By Pharmacy) 1 each PRN DAILY PRN 12/10/21 08:45 Info (PHARMACY MONITORING -- do not chart) 1 each PRN DAILY PRN 12/11/21 07:45 Cancel Insulin Glargine (Lantus Syringe) 12 unit QHS 12/10/21 21:00 Insulin Human Lispro (HumaLOG) 4 units TIDWMEALS 12/10/21 12:00 12/12/21 09:21 4 UNITS Isosorbide Mononitrate (Imdur) 30 mg DAILY 12/10/21 09:00 12/10/21 09:31 30 MG Levothyroxine Sodium (Synthroid) 175 mcg DAILY06 12/10/21 10:30 12/12/21 05:47 175 MCG Loperamide HCl (Imodium) 2 mg PRN Q8HRS PRN 12/10/21 08:00 Metoprolol Succinate (Toprol Xl) 25 mg DAILY 12/10/21 09:00 12/10/21 09:30 25 MG Morphine Sulfate (Morphine Sulfate) 2 mg PRN Q2HR PRN 12/10/21 00:45 12/11/21 00:44 DC Multivitamins (Thera M Plus) 1 tab DAILY 12/10/21 09:00 12/12/21 09:17 1 TAB Non-Formulary Medication (Melatonin ) 2 tab QHS 12/10/21 21:00 UNV Nystatin (Mycostatin) 1 alex PRN BID PRN 12/10/21 21:00 Ondansetron HCl (Zofran Odt) 4 mg PRN Q8HRS PRN 12/10/21 08:45 Cancel Ondansetron HCl (Zofran) 4 mg PRN Q8HRS PRN 12/10/21 00:45 12/11/21 00:44 DC Potassium Chloride (Klor-Con) 10 meq DAILY 12/10/21 09:00 12/12/21 09:17 10 MEQ Quetiapine Fumarate (SEROquel) 50 mg BID 12/10/21 09:00 12/12/21 09:16 50 MG Sodium Chloride 500 ml @ 500 mls/hr 1X ONCE 12/11/21 20:00 12/11/21 20:59 DC 12/11/21 20:00 500 MLS/HR Tramadol HCl (Ultram) 50 mg PRN Q8HRS PRN 12/10/21 08:00 Trazodone HCl (Desyrel) 50 mg PRN QHS PRN 12/10/21 08:00 Triamcinolone Acetonide (Kenalog 0.1%) 1 alex PRN BID PRN 12/10/21 10:00 Triamcinolone Acetonide (Kenalog Cream Jar) 1 alex PRN BID PRN 12/10/21 09:45 12/10/21 09:47 DC Lab Laboratory Tests Test 12/11/21 11:15 12/11/21 11:17 12/11/21 15:12 12/11/21 20:24 White Blood Count 4.3 x10^3/uL (4.0-11.0) Red Blood Count 3.15 x10^6/uL (3.50-5.40) Hemoglobin 10.4 g/dL (12.0-15.5) Hematocrit 31.1 % (36.0-47.0) Mean Corpuscular Volume 99 fL (79-100) Mean Corpuscular Hemoglobin 33 pg (25-35) Mean Corpuscular Hemoglobin Concent 33 g/dL (31-37) Red Cell Distribution Width 18.0 % (11.5-14.5) Platelet Count 74 x10^3/uL (140-400) Neutrophils (%) (Auto) 56 % (31-73) Lymphocytes (%) (Auto) 31 % (24-48) Monocytes (%) (Auto) 8 % (0-9) Eosinophils (%) (Auto) 5 % (0-3) Basophils (%) (Auto) 1 % (0-3) Neutrophils # (Auto) 2.4 x10^3/uL (1.8-7.7) Lymphocytes # (Auto) 1.3 x10^3/uL (1.0-4.8) Monocytes # (Auto) 0.3 x10^3/uL (0.0-1.1) Eosinophils # (Auto) 0.2 x10^3/uL (0.0-0.7) Basophils # (Auto) 0.0 x10^3/uL (0.0-0.2) Sodium Level 141 mmol/L (136-145) Potassium Level 3.6 mmol/L (3.5-5.1) Chloride Level 101 mmol/L (98-107) Carbon Dioxide Level 29 mmol/L (21-32) Anion Gap 11 (6-14) Blood Urea Nitrogen 21 mg/dL (7-20) Creatinine 3.3 mg/dL (0.6-1.0) Estimated GFR (Cockcroft-Gault) 13.7 BUN/Creatinine Ratio 6 (6-20) Glucose Level 112 mg/dL (70-99) Calcium Level 7.3 mg/dL (8.5-10.1) Total Bilirubin 0.4 mg/dL (0.2-1.0) Aspartate Amino Transf (AST/SGOT) 21 U/L (15-37) Alanine Aminotransferase (ALT/SGPT) 16 U/L (14-59) Alkaline Phosphatase 70 U/L (46-116) Total Protein 6.0 g/dL (6.4-8.2) Albumin 2.2 g/dL (3.4-5.0) Albumin/Globulin Ratio 0.6 (1.0-1.7) Glucose (Fingerstick) 113 mg/dL (70-99) 128 mg/dL (70-99) 132 mg/dL (70-99) Test 12/12/21 00:12 12/12/21 04:04 12/12/21 08:18 Glucose (Fingerstick) 147 mg/dL (70-99) 133 mg/dL (70-99) 101 mg/dL (70-99) Results All relevant outside records, renal labs, imaging studies, telemetry/EKG's were reviewed. Justicifation of Admission Dx: Justifications for Admission: Justification of Admission Dx: Yes Acute Renal Failure: Serum Cr > 4mg/dL JUAN CARLOS SONI MD Dec 12, 2021 10:43
--- NOTE | 2021-12-12 10:47 | NUR ---
SW following. Discussed with RN, updates faxed to [place]. Possible discharge today per Dr. Reid's note yesterday. ASHA will continue to follow.
[2021-12-12 11:00] VITALS: BP 109/43
--- NOTE | 2021-12-12 12:11 | CONS ---
DATE OF CONSULTATION: 12/12/2021 DAILY PROGRESS NOTE LOCATION: She is in room 580. SUBJECTIVE: This 76-year-old female remains hospitalized with initial severe hypoglycemia and found to have a hemoglobin of 6. She is much more awake, alert and acting like herself this morning, ready for breakfast. She was quite hypotensive after dialysis yesterday and a couple of her blood pressure medicines will be held today. She did receive a 500 mL bolus of normal saline for the same. I was planning on discharge today, but we will hold off another day with hypotension to make sure this is all good and likely with plan on discharge tomorrow if she does well from a hemodynamic standpoint. OBJECTIVE: VITAL SIGNS: Remarkable for the low blood pressures in the last 12 hours. She is awake and alert. CHEST: Clear. HEART: Regular. ABDOMEN: Benign. ASSESSMENT: 1. Severe hypoglycemia on admission, improved with adjustment of insulin levels, felt a bunch due to probably poor p.o. intake with good blood sugars currently. 2. Anemia with hemoglobin up to 10 with transfusion. 3. Hypotension last 12 hours as discussed above. PLAN: Stop hydralazine and amlodipine. Observe for at least the next 24 hours. JACOB/ROCHELLE DR: KARAN/arlette TID: [id number]
--- NOTE | 2021-12-12 12:30 | NUR ---
PATIENTS' BLOOD SUGAR 66 AT THIS TIME, PATIENT ALERT AND VERBALLY RESPONSIVE WITHOUT S/S OF HYPOGLYCEMIA, APPLE AND ORANGE JUICE GIVEN AND LUNCH TRAY OFFERED, WILL RECHECK AFTER LUNCH.
--- NOTE | 2021-12-12 13:13 | NUR ---
PATIENTS' BLOOD SUGAR 104 AT THIS TIME, WILL MONITOR.
[2021-12-12 15:00] VITALS: BP 107/40
--- NOTE | 2021-12-12 15:21 | NUR ---
PHONE CONTACT MADE WITH PATIENTS' SON (ELY GRESHAM) QUESTIONS AND CONCERNS ANSWERED.
[2021-12-12 19:48] VITALS: BP 118/49
[2021-12-12] MEDS: INSULIN GLARGINE SYRINGE. SQ SCH (21:00)
[2021-12-12] MEDS ORDERED: FAMOTIDINE 20 MG TABLET. PO SCH (21:00)
[2021-12-12] MEDS: ATORVASTATIN CALCIUM 20 MG TABLET PO SCH (21:34)
[2021-12-12 23:23] VITALS: BP 140/50
[2021-12-13] MEDS: LEVOTHYROXINE 175 MCG TABLET PO SCH (06:15)
[2021-12-13 07:00] VITALS: BP 106/49
[2021-12-13] MEDS: CALCIUM ACETATE 667 MG CAPSULE PO SCH ×3 (08:00→17:00)
[2021-12-13] MEDS: INSULIN LISPRO 300 UNITS/3 ML VIAL. SQ SCH ×3 (08:00→17:00)
[2021-12-13 08:25] LABS: BASO % 1 % (0-3); EOS # 0.2 x10^3/uL (0.0-0.7); EOS % 4 % (0-3); HEMATOCRIT 30.2 % (36.0-47.0); HEMOGLOBIN 9.8 g/dL (12.0-15.5); LYMPH # 1.3 x10^3/uL (1.0-4.8); LYMPH % 28 % (24-48); MEAN CORPUSCULAR HEMOGLOBIN 33 pg (25-35); MEAN CORPUSCULAR HGB CONC 33 g/dL (31-37); MEAN CORPUSCULAR VOLUME 101 fL (79-100); MONO # 0.4 x10^3/uL (0.0-1.1); MONO % 8 % (0-9); NEUT # 2.8 x10^3/uL (1.8-7.7); NEUT % 60 % (31-73); PLATELET COUNT 87 x10^3/uL (140-400); RED BLOOD COUNT 2.98 x10^6/uL (3.50-5.40); RED CELL DISTRIBUTION WIDTH 17.2 % (11.5-14.5); WHITE BLOOD COUNT 4.6 x10^3/uL (4.0-11.0)
[2021-12-13 08:44] LABS: CALCIUM 8.4 mg/dL (8.5-10.1); CREATININE 10.2 mg/dL (0.6-1.0); GFR 3.7
[2021-12-13 08:47] LABS: POTASSIUM 5.7 mmol/L (3.5-5.1)
[2021-12-13] MEDS: DONEPEZIL HCL 10 MG TABLET. PO SCH (09:00)
[2021-12-13] MEDS: busPIRone 5 MG TABLET. PO SCH ×3 (09:00→22:15)
[2021-12-13] MEDS: MULTIVITAMIN with MINERAL TABLET. PO SCH (09:00)
[2021-12-13] MEDS: METOPROLOL SUCC 24HR ER 25 MG TAB.ER.24H. PO SCH (09:00)
[2021-12-13] MEDS: DIVALPROEX EXTENDED RELEASE 250 MG TAB.ER.24H. PO SCH (09:00)
[2021-12-13] MEDS: APIXABAN 2.5 MG TABLET. PO SCH ×2 (09:00→22:15)
[2021-12-13] MEDS: POTASSIUM CHLORIDE 10 MEQ TABLET.ER. PO SCH (09:00)
[2021-12-13] MEDS: QUEtiapine 25 MG TABLET. PO SCH ×2 (09:00→22:15)
[2021-12-13] MEDS: ISOSORBIDE MONONITRATE ER 30 MG TAB.ER.24H PO SCH (09:00)
[2021-12-13] MEDS: AMIODARONE HCL 200 MG TABLET. PO SCH (09:00)
[2021-12-13 11:00] VITALS: BP 134/47
[2021-12-13] MEDS ORDERED: INSU100V8 SQ (11:14)
--- NOTE | 2021-12-13 11:15 | SNU/HH DC ---
DISCHARGE ORDERS DISCHARGE INFORMATION: DISCHARGE DATE: Dec 13, 2021 FINAL DIAGNOSIS Problems Medical Problems: (1) ESRD (end stage renal disease) Status: Acute (2) Hypoglycemia Status: Acute CONDITION ON DISCHARGE: Stable CODE STATUS: Code Status: Full SHELTER: SNF STAY <30 DAYS: Yes HOSPICE: HOSPICE: No HOSPICE EVAL & TREAT: No LTAC: ADMIT TO LTAC: No POST DISCHARGE ORDERS: ACTIVITY ORDERS: Activity as tolerated WEIGHT BEARING STATUS: As tolerated DIET AFTER DISCHARGE: ADA CHECKS AFTER DISCHARGE: CHECKS AFTER DISCHARGE: Check blood press - daily, Check blood sugar, ac/hs, Weigh Yourself Daily TREATMENT/EQUIPMENT ORDERS: ADAPTIVE EQUIPMENT NEEDED: Wheelchair Physical Therapy For: Evalulation/Treatment Occupational Therapy For: Evaluation/Treatment DISCHARGE MEDICATIONS: Home Meds Active Scripts Insulin Glargine,Hum.rec.anlog (LANTUS) 100 Unit/1 Ml Vial, 12 UNIT SQ QHS for diabetes MDD 12 for 90 Days, #30 EACH Prov:HOUSTON SILVER MD 12/13/21 Famotidine (PEPCID) 20 Mg Tablet, 20 MG PO BID, #14 TAB Prov:DOMINGO SO DO 02/25/21 Ondansetron (ONDANSETRON ODT) 4 Mg Tab.rapdis, 1 TAB PO PRN Q6-8HRS PRN for NAUSEA, #16 TAB Prov:DOMINGO SO DO 02/25/21 Reported Medications Loperamide HCl (Imodium A-D) 2 Mg Capsule, 2 MG PO PRN Q8HRS PRN for DIARRHEA, CAP 07/09/20 Amiodarone Hcl (AMIODARONE HCL) 100 Mg Tablet, 1 TAB PO DAILY for arrhythmia for 30 Days, #30 TAB 0 Refills 07/09/20 Potassium Chloride (KLOR-CON 10) 10 Meq Tablet.er, 10 MEQ PO DAILY for hyp okalelmia, TAB 07/09/20 Metoprolol Succinate (METOPROLOL SUCCINATE ( XL )) 25 Mg Tab.er.24h, 1 TAB PO DAILY for htn, #30 TAB 5 Refills 07/09/20 Levothyroxine Sodium (LEVOTHYROXINE SODIUM) 175 Mcg Tablet, 1 TAB PO DAILY for hypothyroidism, #30 TAB 5 Refills 07/09/20 Apixaban (ELIQUIS) 2.5 Mg Tablet, 2.5 MG PO BID for blood thinner, TAB 07/09/20 Atorvastatin Calcium (ATORVASTATIN CALCIUM) 20 Mg Tablet, 20 MG PO HS for FOR CHOLESTEROL, #30 TAB 0 Refills 07/09/20 Carboxymethylcellulose Sodium (THERA TEARS) 15 Ml Drops, 1 DROP EACHEYE BID for DRY EYES, #30 ML 0 Refills 11/13/19 Acetaminophen (ACETAMINOPHEN) 500 Mg Tablet, 500 MG PO PRN Q6HRS PRN for PAIN, TAB 10/09/19 Trazodone Hcl (TRAZODONE HCL) 50 Mg Tablet, 50 MG PO PRN QHS for , TAB 10/09/19 Calcium Carbonate (TUMS) 300 Mg Tab.chew, 500 MG PO HS for , TAB.CHEW 10/09/19 Tramadol Hcl (TRAMADOL HCL) 50 Mg Tablet, 50 MG PO Q8HRS PRN for PAIN, TAB 0 Refills 01/21/19 Melatonin (MELATONIN) 3 Mg Tablet, 2 TAB PO QHS for insominia, #30 TAB 2 Refills 01/21/19 Hydrocortisone (HYDROCORTISONE) 59 Ml Lotion, 1 COY TP BID for above shunt, #60 ML 01/21/19 Docusate Sodium (COLACE) 100 Mg Capsule, 1 CAP PO PRN DAILY PRN for CONSTIPATION, #30 CAP 01/21/19 Calcium Acetate (CALCIUM ACETATE) 667 Mg Tablet, 667 MG PO TIDWMEALS for DIALYSIS PATIENTS, CAP 01/21/19 Buspirone Hcl (BUSPIRONE HCL) 5 Mg Tablet, 1 TAB PO TID for agitation, #60 TAB 2 Refills 01/21/19 Quetiapine Fumarate (SEROQUEL) 50 Mg Tablet, 50 MG PO BID, TAB 06/21/18 Nystatin/Triamcin (NYSTATIN-TRIAMCINOLONE CREAM) 15 Gm Cream..g., 1 COY TP PRN PRN for REDNESS, #30 GM 1 Refill 06/21/18 Divalproex Sodium (DEPAKOTE ER) 250 Mg Tab.er.24h, 250 MG PO DAILY for , TAB.SR 06/21/18 Insulin Aspart (NOVOLOG FLEXPEN) 100 Unit/1 Ml Insuln.pen, 4 UNIT SQ TIDWMEALS for DM, SYR 06/21/18 Ergocalciferol (Vitamin D2) (VITAMIN D2) 50,000 Unit Capsule, 18218 UNIT PO DAILY, CAP 05/13/18 Donepezil Hcl (DONEPEZIL HCL) 10 Mg Tablet, 10 MG PO DAILY, TAB 05/13/18 Isosorbide Mononitrate (ISOSORBIDE MONONITRATE ER) 30 Mg Tab.er.24h, 1 TAB PO DAILY, #30 TAB 5 Refills 08/13/17 Multivitamin (MULTIVITAMINS) 1 Each Tablet, 1 TAB PO DAILY, #90 TAB 3 Refills 08/06/17 Discontinued Reported Medications D-Methorphan Hb/Prometh Hcl (PROMETHAZINE-DM SYRUP) 118 Ml Syrup, 5 ML PO PRN Q6HRS PRN for cough for 6 Days, #120 ML 0 Refills 07/09/20 Insulin Glargine,Hum.rec.anlog (LANTUS SOLOSTAR) 100 Unit/1 Ml Insuln.pen, 18 UNIT SQ QHS for dm, #15 ML 3 Refills 07/09/20 Benzonatate (BENZONATATE) 200 Mg Capsule, 200 MG PO TID PRN for COUGH, CAP 11/13/19 Hydralazine Hcl (HYDRALAZINE HCL) 25 Mg Tablet, 25 MG PO BID for , TAB 10/09/19 Cetirizine Hcl (ZYRTEC) 10 Mg Tablet, 10 MG PO HS for , TAB 10/09/19 Ondansetron Hcl (ZOFRAN) 4 Mg Tablet, 1 TAB PO PRN Q6HRS for , #20 TAB 10/09/19 Amlodipine Besylate (AMLODIPINE BESYLATE) 5 Mg Tablet, 5 MG PO DAILY for hyp ertension, TAB take 1 tab every Sun, Mon, Wed, Wed01/21/19 Discontinued Scripts Hyoscyamine Sulfate (LEVSIN-SL) 0.125 Mg Tab.subl, 0.125 MG SL Q4-6HRS PRN for PAIN, #14 TAB Prov:DOMINGO SO DO 02/25/21 HOUSTON SILVER MD Dec 13, 2021 11:15
--- NOTE | 2021-12-13 12:05 | DS ---
DATE OF DISCHARGE: 12/13/2021 PRIMARY DIAGNOSIS: Hypoglycemia. ADDITIONAL DIAGNOSES: Severe anemia, end-stage renal disease, on dialysis, relative hypotension. CHIEF COMPLAINT AND HISTORY OF PRESENT ILLNESS: This is a 76-year-old female with severe hypoglycemia, was transported from the skilled nursing to the Emergency Room where she was resuscitated with D50 and found to have a hemoglobin of 6, admitted for above. SUMMARY OF STAY: The patient was admitted, transfused. Hemoglobin came up in the 10 range and remained the same. Hypoglycemia was remedied by decreasing insulin levels. She still remained in the low ranges, but not hypoglycemic, but was taking p.o. poorly until the last day or so. She had ongoing dialysis during the stay, was relatively hypotensive at times and a couple of her blood pressure medicines, namely hydralazine and amlodipine were held during the stay. She was felt ready for dismissal after dialysis on the day of discharge and this was accomplished. DISPOSITION: The patient is discharged back to skilled nursing for mcc. DIET: ADA renal diet. ACTIVITY: As tolerated. DISCHARGE MEDICATIONS: Meds have been addressed on the med rec and are sent with the patient. FOLLOWUP: We will continue to follow up with her there. RANDELL DR: Katelynn TID: [phone]
--- NOTE | 2021-12-13 13:05 | PDOC ---
DATE OF SERVICE DATE: 12/13/21 TIME: 13:05 SUBJECTIVE ROS No complaints , Denies SOB, No N/V OBJECTIVE Vital Signs Vital Signs Date Time Temp Pulse Resp B/P (MAP) Pulse Ox O2 Delivery O2 Flow Rate FiO2 12/13/21 11:00 98.0 75 18 134/47 (76) 96 Room Air 98.0 I & 0 Intake and Output 12/13/21 07:00 Intake Total 50 ml Balance 50 ml Intake Oral 50 ml # Bowel Movements 1 PHYSICAL EXAM Physical Exam General NAD HEEN OM moist Neck Supple Lungs CTA B, Non labored CV RRR Abd Soft, NT , BS + Ext No LE edema No meza Neuro Grossly Normal Derm No Rash DIAGNOSIS/ASSESSMENT Assessment & Plan ESRD on HD at [facility] under Dr Metzger TTS , Dialyzed emergently on 12/10. Dialysis today . Discussed treatment plan with [facility] Hyperkalemia- Mild. HD today Anemia- Significant drop in Hgb POA <7 , S/P PRBC. Tsats at goal. Hgb improved and stable . Defer to PCP Hx of Bipolar/Attention seeking behavior per Dr. Metzger DM- Uncontrolled. Low BS at [place] with AMS. Primary managing HTN- BP stable Recovering COVID 19 positive per [place] report Discharge per primary COMMENT/RELEVANT DATA Meds Current Medications Medications (Trade) Dose Ordered Sig/Angeles Start Time Stop Time Status Last Admin Dose Admin Acetaminophen (Tylenol) 500 mg PRN Q6HRS PRN 12/10/21 08:00 Amiodarone HCl (Cordarone) 100 mg DAILY 12/10/21 09:00 12/10/21 09:28 100 MG Amlodipine Besylate (Norvasc) 5 mg DAILY 12/10/21 09:00 12/12/21 08:14 DC 12/10/21 09:29 5 MG Apixaban (Eliquis) 2.5 mg BID 12/10/21 09:00 12/12/21 21:34 2.5 MG Atorvastatin Calcium (Lipitor) 20 mg HS 12/10/21 21:00 12/12/21 21:34 20 MG Buspirone HCl (Buspar) 5 mg TID 12/10/21 09:00 12/12/21 21:35 5 MG Calcium Acetate (Phoslo) 667 mg TIDWMEALS 12/10/21 12:00 12/12/21 17:53 667 MG Dextrose (Dextrose 50%-Water Syringe) 12.5 gm PRN Q15MIN PRN 12/10/21 00:45 12/10/21 07:53 12.5 GM Divalproex Sodium (Depakote Er) 250 mg DAILY 12/10/21 09:00 12/12/21 09:15 250 MG Docusate Sodium (Colace) 100 mg PRN DAILY PRN 12/10/21 08:00 Donepezil HCl (Aricept) 10 mg DAILY 12/10/21 09:00 12/12/21 09:16 10 MG Famotidine (Pepcid) 20 mg Q48H 12/12/21 21:00 12/12/21 21:34 20 MG Hydralazine HCl (Apresoline) 25 mg BID 12/10/21 09:00 12/12/21 08:14 DC 12/10/21 22:32 25 MG Info (Anti-Coagulation Monitoring By Pharmacy) 1 each PRN DAILY PRN 12/10/21 08:45 12/12/21 12:02 1 EACH Info (PHARMACY MONITORING -- do not chart) 1 each PRN DAILY PRN 12/11/21 07:45 Cancel Insulin Glargine (Lantus Syringe) 12 unit QHS 12/10/21 21:00 Insulin Human Lispro (HumaLOG) 4 units TIDWMEALS 12/10/21 12:00 12/12/21 09:21 4 UNITS Isosorbide Mononitrate (Imdur) 30 mg DAILY 12/10/21 09:00 12/10/21 09:31 30 MG Levothyroxine Sodium (Synthroid) 175 mcg DAILY06 12/10/21 10:30 12/13/21 06:15 175 MCG Loperamide HCl (Imodium) 2 mg PRN Q8HRS PRN 12/10/21 08:00 Metoprolol Succinate (Toprol Xl) 25 mg DAILY 12/10/21 09:00 12/10/21 09:30 25 MG Morphine Sulfate (Morphine Sulfate) 2 mg PRN Q2HR PRN 12/10/21 00:45 12/11/21 00:44 DC Multivitamins (Thera M Plus) 1 tab DAILY 12/10/21 09:00 12/12/21 09:17 1 TAB Non-Formulary Medication (Melatonin ) 2 tab QHS 12/10/21 21:00 UNV Nystatin (Mycostatin) 1 alex PRN BID PRN 12/10/21 21:00 Ondansetron HCl (Zofran Odt) 4 mg PRN Q8HRS PRN 12/10/21 08:45 Cancel Ondansetron HCl (Zofran) 4 mg PRN Q8HRS PRN 12/10/21 00:45 12/11/21 00:44 DC Potassium Chloride (Klor-Con) 10 meq DAILY 12/10/21 09:00 12/12/21 09:17 10 MEQ Quetiapine Fumarate (SEROquel) 50 mg BID 12/10/21 09:00 12/12/21 21:35 50 MG Sodium Chloride 500 ml @ 500 mls/hr 1X ONCE 12/11/21 20:00 12/11/21 20:59 DC 12/11/21 20:00 500 MLS/HR Tramadol HCl (Ultram) 50 mg PRN Q8HRS PRN 12/10/21 08:00 Trazodone HCl (Desyrel) 50 mg PRN QHS PRN 12/10/21 08:00 Triamcinolone Acetonide (Kenalog 0.1%) 1 alex PRN BID PRN 12/10/21 10:00 Triamcinolone Acetonide (Kenalog Cream Jar) 1 alex PRN BID PRN 12/10/21 09:45 12/10/21 09:47 DC Lab Laboratory Tests Test 12/12/21 13:13 12/12/21 16:40 12/12/21 23:13 12/13/21 04:13 Glucose (Fingerstick) 104 mg/dL (70-99) 133 mg/dL (70-99) 176 mg/dL (70-99) 161 mg/dL (70-99) Test 12/13/21 06:50 12/13/21 08:23 12/13/21 12:18 White Blood Count 4.6 x10^3/uL (4.0-11.0) Red Blood Count 2.98 x10^6/uL (3.50-5.40) Hemoglobin 9.8 g/dL (12.0-15.5) Hematocrit 30.2 % (36.0-47.0) Mean Corpuscular Volume 101 fL (79-100) Mean Corpuscular Hemoglobin 33 pg (25-35) Mean Corpuscular Hemoglobin Concent 33 g/dL (31-37) Red Cell Distribution Width 17.2 % (11.5-14.5) Platelet Count 87 x10^3/uL (140-400) Neutrophils (%) (Auto) 60 % (31-73) Lymphocytes (%) (Auto) 28 % (24-48) Monocytes (%) (Auto) 8 % (0-9) Eosinophils (%) (Auto) 4 % (0-3) Basophils (%) (Auto) 1 % (0-3) Neutrophils # (Auto) 2.8 x10^3/uL (1.8-7.7) Lymphocytes # (Auto) 1.3 x10^3/uL (1.0-4.8) Monocytes # (Auto) 0.4 x10^3/uL (0.0-1.1) Eosinophils # (Auto) 0.2 x10^3/uL (0.0-0.7) Basophils # (Auto) 0.0 x10^3/uL (0.0-0.2) Sodium Level 138 mmol/L (136-145) Potassium Level 5.7 mmol/L (3.5-5.1) Chloride Level 102 mmol/L (98-107) Carbon Dioxide Level 24 mmol/L (21-32) Anion Gap 12 (6-14) Blood Urea Nitrogen 74 mg/dL (7-20) Creatinine 10.2 mg/dL (0.6-1.0) Estimated GFR (Cockcroft-Gault) 3.7 Glucose Level 152 mg/dL (70-99) Calcium Level 8.4 mg/dL (8.5-10.1) Glucose (Fingerstick) 128 mg/dL (70-99) 153 mg/dL (70-99) Results All relevant outside records, renal labs, imaging studies, telemetry/EKG's were reviewed. Justicifation of Admission Dx: Justifications for Admission: Justification of Admission Dx: Yes Acute Renal Failure: Serum Cr > 4mg/dL JUAN CARLOS SONI MD Dec 13, 2021 13:05
[2021-12-13] MEDS ORDERED: EPOETIN ALFA-EPBX for ESRD 20,000 UNIT/ML VIAL. SQ ONE (14:00)
[2021-12-13] MEDS ORDERED: ALBUMIN HUMAN 25% 200 ML IV PRN (14:15)
[2021-12-13] MEDS ORDERED: IV NORMAL SALINE 1000ML BAG 1,000 ML IV PRN ×2 (14:15)
[2021-12-13] MEDS ORDERED: DIALYSIS PATIENT. MC PRN (14:15)
[2021-12-13 19:00] VITALS: BP 132/42
[2021-12-13] MEDS: INSULIN GLARGINE SYRINGE. SQ SCH (21:00)
[2021-12-13] MEDS: ATORVASTATIN CALCIUM 20 MG TABLET PO SCH (22:15)
[2021-12-13 23:00] VITALS: BP 134/39
[2021-12-14 03:00] VITALS: BP 142/57
[2021-12-14] MEDS: LEVOTHYROXINE 175 MCG TABLET PO SCH (05:14)
[2021-12-14 07:00] VITALS: BP 139/53
--- NOTE | 2021-12-14 11:07 | PDOC ---
DR. SILVER PROGRESS NOTE Date of Service DOS: DATE: 12/14/21 TIME: 11:06 Chief Complaint Chief Complaint yesterday's dc summary remains accurate. Vitals/I&O Vitals/I&O: Vital Signs Date Time Temp Pulse Resp B/P (MAP) Pulse Ox O2 Delivery O2 Flow Rate FiO2 12/14/21 07:00 97.7 62 18 139/53 (81) 99 Room Air 97.7 I & O 12/13/21 12/13/21 12/14/21 15:00 23:00 07:00 Intake Total 400 ml 200 ml Balance 400 ml 200 ml Assessment and Plan Assessmemt and Plan Problems Medical Problems: (1) ESRD (end stage renal disease) Status: Acute (2) Hypoglycemia Status: Acute Comment Review of Relevant I have reviewed the following items connie (where applicable) has been applied. HOUSTON SILVER MD Dec 14, 2021 11:07
--- NOTE | 2021-12-14 12:21 | PDOC ---
DATE OF SERVICE DATE: 12/14/21 TIME: 12:19 SUBJECTIVE ROS No complaints , Denies SOB, No N/V OBJECTIVE Vital Signs Vital Signs Date Time Temp Pulse Resp B/P (MAP) Pulse Ox O2 Delivery O2 Flow Rate FiO2 12/14/21 07:00 97.7 62 18 139/53 (81) 99 Room Air 97.7 I & 0 Intake and Output 12/14/21 07:00 Intake Total 600 ml Balance 600 ml Intake Oral 600 ml # Voids 3 # Bowel Movements 1 PHYSICAL EXAM Physical Exam General NAD HEEN OM moist Neck Supple Lungs CTA B, Non labored CV RRR Abd Soft, NT , BS + Ext No LE edema No meza Neuro Grossly Normal Derm No Rash DIAGNOSIS/ASSESSMENT Assessment & Plan ESRD on HD at [facility] under Dr Metzger TTS Currently no indication for dialysis today Anemia- Significant drop in Hgb POA <7 , S/P PRBC. Tsats at goal. Hgb improved . Defer to PCP Hx of Bipolar/Attention seeking behavior per Dr. Metzger DM- Uncontrolled. Low BS at [place] with AMS. Primary managing HTN- BP stable Recovering COVID 19 positive per [place] report Discharge per primary COMMENT/RELEVANT DATA Meds Current Medications Medications (Trade) Dose Ordered Sig/Angeles Start Time Stop Time Status Last Admin Dose Admin Acetaminophen (Tylenol) 500 mg PRN Q6HRS PRN 12/10/21 08:00 12/14/21 05:37 500 MG Albumin Human 200 ml @ 200 mls/hr 1X PRN PRN 12/13/21 14:15 12/13/21 20:14 DC Amiodarone HCl (Cordarone) 100 mg DAILY 12/10/21 09:00 12/10/21 09:28 100 MG Amlodipine Besylate (Norvasc) 5 mg DAILY 12/10/21 09:00 12/12/21 08:14 DC 12/10/21 09:29 5 MG Apixaban (Eliquis) 2.5 mg BID 12/10/21 09:00 12/13/21 22:15 2.5 MG Atorvastatin Calcium (Lipitor) 20 mg HS 12/10/21 21:00 12/13/21 22:15 20 MG Buspirone HCl (Buspar) 5 mg TID 12/10/21 09:00 12/13/21 22:15 5 MG Calcium Acetate (Phoslo) 667 mg TIDWMEALS 12/10/21 12:00 12/12/21 17:53 667 MG Dextrose (Dextrose 50%-Water Syringe) 12.5 gm PRN Q15MIN PRN 12/10/21 00:45 12/10/21 07:53 12.5 GM Divalproex Sodium (Depakote Er) 250 mg DAILY 12/10/21 09:00 12/12/21 09:15 250 MG Docusate Sodium (Colace) 100 mg PRN DAILY PRN 12/10/21 08:00 Donepezil HCl (Aricept) 10 mg DAILY 12/10/21 09:00 12/12/21 09:16 10 MG Epoetin Cameron-epbx (RETACRIT for ESRD PTS) 10,000 unit 1X ONCE 12/13/21 14:00 12/13/21 14:01 DC Famotidine (Pepcid) 20 mg Q48H 12/12/21 21:00 12/12/21 21:34 20 MG Hydralazine HCl (Apresoline) 25 mg BID 12/10/21 09:00 12/12/21 08:14 DC 12/10/21 22:32 25 MG Info (Anti-Coagulation Monitoring By Pharmacy) 1 each PRN DAILY PRN 12/10/21 08:45 12/12/21 12:02 1 EACH Info (PHARMACY MONITORING -- do not chart) 1 each PRN DAILY PRN 12/13/21 14:15 UNV Insulin Glargine (Lantus Syringe) 12 unit QHS 12/10/21 21:00 Insulin Human Lispro (HumaLOG) 4 units TIDWMEALS 12/10/21 12:00 12/13/21 13:05 4 UNITS Isosorbide Mononitrate (Imdur) 30 mg DAILY 12/10/21 09:00 12/10/21 09:31 30 MG Levothyroxine Sodium (Synthroid) 175 mcg DAILY06 12/10/21 10:30 12/14/21 05:14 175 MCG Loperamide HCl (Imodium) 2 mg PRN Q8HRS PRN 12/10/21 08:00 Metoprolol Succinate (Toprol Xl) 25 mg DAILY 12/10/21 09:00 12/10/21 09:30 25 MG Morphine Sulfate (Morphine Sulfate) 2 mg PRN Q2HR PRN 12/10/21 00:45 12/11/21 00:44 DC Multivitamins (Thera M Plus) 1 tab DAILY 12/10/21 09:00 12/12/21 09:17 1 TAB Non-Formulary Medication (Melatonin ) 2 tab QHS 12/10/21 21:00 UNV Nystatin (Mycostatin) 1 alex PRN BID PRN 12/10/21 21:00 Ondansetron HCl (Zofran Odt) 4 mg PRN Q8HRS PRN 12/10/21 08:45 Cancel Ondansetron HCl (Zofran) 4 mg PRN Q8HRS PRN 12/10/21 00:45 12/11/21 00:44 DC Potassium Chloride (Klor-Con) 10 meq DAILY 12/10/21 09:00 12/12/21 09:17 10 MEQ Quetiapine Fumarate (SEROquel) 50 mg BID 12/10/21 09:00 12/13/21 22:15 50 MG Sodium Chloride 1,000 ml @ 400 mls/hr Q2H30M PRN 12/13/21 14:15 12/14/21 02:14 DC Tramadol HCl (Ultram) 50 mg PRN Q8HRS PRN 12/10/21 08:00 Trazodone HCl (Desyrel) 50 mg PRN QHS PRN 12/10/21 08:00 Triamcinolone Acetonide (Kenalog 0.1%) 1 alex PRN BID PRN 12/10/21 10:00 Triamcinolone Acetonide (Kenalog Cream Jar) 1 alex PRN BID PRN 12/10/21 09:45 12/10/21 09:47 DC Lab Laboratory Tests Test 12/13/21 17:40 12/14/21 07:39 Glucose (Fingerstick) 73 mg/dL (70-99) 126 mg/dL (70-99) Results All relevant outside records, renal labs, imaging studies, telemetry/EKG's were reviewed. Justicifation of Admission Dx: Justifications for Admission: Justification of Admission Dx: Yes Acute Renal Failure: Serum Cr > 4mg/dL JUAN CARLOS SONI MD Dec 14, 2021 12:21
--- NOTE | 2021-12-14 12:36 | NUR ---
Discharge Note: HECTOR GRESHAM Discharge instructions and discharge home medications reviewed with Other facility and a copy given. All questions have been answered and understanding verbalized. The following instructions and handouts were given: Medication reconciliation, worsening symptoms, follow up information Discontinued lines and drains: IV discontinued, telemetry removed, and skin intact. Patient discharged to [place] via medical transportation, all belonings sent with patient.
== END 2021-12-14 09:30 | DRG 637 ==
LOC: ER 22:38 → 5 SOUTH 12-10 00:36
PROVIDERS: ADMIT Family Medicine; ATTEND Family Medicine
PROC: 30233N1 Transfusion of Nonautologous Red Blood Cells into Peripheral Vein, Percutaneous Approach (ICD-10-PCS; principal; 2021-12-10)
PROC: 5A1D70Z Performance of Urinary Filtration, Intermittent, Less than 6 Hours Per Day (ICD-10-PCS; 2021-12-10)
PROC: 5A1D70Z Performance of Urinary Filtration, Intermittent, Less than 6 Hours Per Day (ICD-10-PCS; 2021-12-11)
PROC: 5A1D70Z Performance of Urinary Filtration, Intermittent, Less than 6 Hours Per Day (ICD-10-PCS; 2021-12-13)
DX: E11.649 Type 2 diabetes mellitus with hypoglycemia without coma (principal); U07.1 COVID-19; I13.2 Hypertensive heart and chronic kidney disease with heart failure and with stage 5 chronic kidney disease, or end stage renal disease; I95.3 Hypotension of hemodialysis; N18.6 End stage renal disease; D53.9 Nutritional anemia, unspecified; E03.9 Hypothyroidism, unspecified; E11.22 Type 2 diabetes mellitus with diabetic chronic kidney disease; E78.00 Pure hypercholesterolemia, unspecified; E78.5 Hyperlipidemia, unspecified; F02.80 Dementia in other diseases classified elsewhere, unspecified severity, without behavioral disturbance, psychotic disturbance, mood disturbance, and anxiety; F31.9 Bipolar disorder, unspecified; G30.9 Alzheimer's disease, unspecified; I27.20 Pulmonary hypertension, unspecified; I48.91 Unspecified atrial fibrillation; I50.9 Heart failure, unspecified; Z82.0 Family history of epilepsy and other diseases of the nervous system; Z87.11 Personal history of peptic ulcer disease; Z90.710 Acquired absence of both cervix and uterus; Z95.0 Presence of cardiac pacemaker; Z99.2 Dependence on renal dialysis; F41.9 Anxiety disorder, unspecified; K21.9 Gastro-esophageal reflux disease without esophagitis; M19.90 Unspecified osteoarthritis, unspecified site; Z88.8 Allergy status to other drugs, medicaments and biological substances; E87.5 Hyperkalemia
CPT/HCPCS: 36415; 36430; 71045; 80048; 80053; 82607; 82962; 83540; 83550; 83735; 83880; 84484; 85014; 85018; 85025; 86850; 86870; 86900; 86901; 86922; 87426; 93005; 96374; J1815; J7040; P9016; U0003; U0005; 99285-25; G0378

== ENCOUNTER 2022-01-20 14:24 | Emergency (ER) | payer MEDICARE, OTHER ==
[~2022-01-20] VITALS: Ht 154.9 cm; Wt 63.9 kg
[~2022-01-20 14:24] MED LIST changes: +INSU100V8 SQ
--- NOTE | 2022-01-20 14:29 | PHYS DOC ---
Past Medical History Past Medical History: Anemia, Anxiety, Arthritis, Bipolar, CHF, Dementia, Depression, Diabetes-Type II, GERD, High Cholesterol, Hypertension, Hypothyroid, Renal Failure Additional Past Medical Histor: major depressive disorder, Sick sinus synd, alzheimer's, Past Surgical History: Hysterectomy, Pacemaker Additional Past Surgical Histo: DIALYSIS SHUNT/FISTULA LEFT SIDE Smoking Status: Never Smoker Alcohol Use: None Drug Use: None General Adult EDM: Chief Complaint: DIZZY/LIGHT HEADED HPI: HPI: Patient is a 76 year old female who arrives by EMS from her dialysis center for hypotension. The patient was receiving her routine dialysis today, and they apparently took more fluid off, and were unable to replace about 300 mL of the volume for her, secondary to problems with her dialysis fistula malfunctioning. The patient denies any physical complaints at present. She reported a brief episode of dizziness at the dialysis center, this has since resolved. She denies chest pain, palpitations, dyspnea, abdominal pain, nausea, vomiting. Not she denies fall, head injury, headache, syncope, denies numbness or tingling or focal motor weakness. She denies recent fevers or chills. She otherwise feels well at present. She is hypotensive initially on arrival here. Review of Systems: Review of Systems: Constitutional: Denies fever or chills. [] Respiratory: Denies cough or shortness of breath. [] Cardiovascular: Denies chest pain or edema. [] GI: Denies abdominal pain, nausea, vomiting, or diarrhea : Denies urinary symptoms Musculoskeletal: Denies back pain Neurologic: Denies headache, focal weakness or sensory changes. Brief episode of dizziness/lightheadedness, now resolved. Psychiatric: Denies depression or anxiety. [] Heart Score: C/O Chest Pain: No Risk Factors: Risk Factors: DM, Current or recent (<one month) smoker, HTN, HLP, family history of CAD, obesity. Risk Scores: Score 0 - 3: 2.5% MACE over next 6 weeks - Discharge Home Score 4 - 6: 20.3% MACE over next 6 weeks - Admit for Clinical Observation Score 7 - 10: 72.7% MACE over next 6 weeks - Early Invasive Strategies Allergies: Allergies: Allergies Coded Allergies Type Severity Reaction Last Updated Verified amoxicillin Allergy Intermediate 05/13/18 Yes clavulanic acid Allergy Intermediate 05/13/18 Yes Physical Exam: PE: Constitutional: Well developed, well nourished, no acute distress, non-toxic appearance. Chronically ill-appearing, resting comfortably. HENT: Normocephalic, atraumatic, oropharynx is patent and clear, mucous members are moist. Eyes: Conjunctival pallor, no icterus Neck: Normal range of motion, no tenderness, supple, no stridor. [] Cardiovascular:Heart rate regular rhythm, +2 radial pulse bilaterally Lungs & Thorax: Bilateral breath sounds clear to auscultation [] Abdomen: Abdomen is obese, soft, nondistended, nontender to palpation Skin: Warm, dry, no erythema, no rash. [] Back: No tenderness, no CVA tenderness. [] Extremities: No tenderness, no cyanosis, no clubbing, ROM intact, lateral, symmetric 1+ lower extremity edema. No calf tenderness. Neurologic: Alert and oriented X 3, normal motor function, normal sensory function, no focal deficits noted. [] Psychologic: Affect normal, judgement normal, mood normal. She is pleasant and cooperative. EKG: EKG: EKG is interpreted at 1441 Rhythm is sinus Rate is 73 bpm [place] is normal No STEMI Radiology/Procedures: Radiology/Procedures: [] Course & Med Decision Making: Course & Med Decision Making Pertinent Labs and Imaging studies reviewed. (See chart for details) The patient is given a 500 mL fluid bolus. Her blood pressure is markedly improved. Heart remains in the 60s. Blood pressure as of 1641 is 105/55, with MAP of 75. There is no current indication for further invasive exams, imaging or admission based on current clinical presentation. Regarding her dialysis fistula issue, she has already been referred to outpatient vascular surgery, and she is supposed to see them this week. She may continue routine dialysis as per usual and as directed by her glass designer. The patient feels comfortable with the plan for discharge home. Strict return precautions are given. Dragon Disclaimer: Dragasmita Disclaimer: This electronic medical record was generated, in whole or in part, using a voice recognition dictation system. Departure Departure Impression: Primary Impression: Hypotension Qualified Codes: I95.9 - Hypotension, unspecified Additional Impressions: Volume depletion End stage renal disease on dialysis Disposition: HOME / SELF CARE / HOMELESS Condition: STABLE Referrals: HOUSTON SILVER MD (PCP) Patient Instructions: Hypotension Additional Instructions: Your blood pressure appears to be significantly improved after you were given IV fluids. Please continue to go to dialysis as per your usual schedule. You have been given a referral for the clinic they can help troubleshoot your dialysis fistula problem. Please return to the ER if you have any chest pain, shortness of breath, abdominal pain, vomiting, temperature 100.4 or higher, generalized weakness, fall, if you are acutely injured, if you develop any severe dizziness or for any other concerns. JONE TRUONG DO Jan 20, 2022 14:28
[2022-01-20] MEDS ORDERED: IV NORMAL SALINE 500ML BAG 500 ML IV ONE (14:45)
[2022-01-20 14:52] LABS: BASO # 0.1 x10^3/uL (0.0-0.2); BASO % 1 % (0-3); EOS # 0.1 x10^3/uL (0.0-0.7); EOS % 1 % (0-3); HEMATOCRIT 26.4 % (36.0-47.0); HEMOGLOBIN 8.6 g/dL (12.0-15.5); LYMPH # 1.3 x10^3/uL (1.0-4.8); LYMPH % 14 % (24-48); MEAN CORPUSCULAR HEMOGLOBIN 32 pg (25-35); MEAN CORPUSCULAR HGB CONC 33 g/dL (31-37); MEAN CORPUSCULAR VOLUME 99 fL (79-100); MONO # 0.4 x10^3/uL (0.0-1.1); MONO % 4 % (0-9); NEUT # 7.1 x10^3/uL (1.8-7.7); NEUT % 80 % (31-73); PLATELET COUNT 195 x10^3/uL (140-400); RED BLOOD COUNT 2.67 x10^6/uL (3.50-5.40); RED CELL DISTRIBUTION WIDTH 17.5 % (11.5-14.5); WHITE BLOOD COUNT 8.9 x10^3/uL (4.0-11.0)
[2022-01-20 15:03] LABS: CALCIUM 8.9 mg/dL (8.5-10.1); CREATININE 11.2 mg/dL (0.6-1.0); GFR 3.3; POTASSIUM 5.4 mmol/L (3.5-5.1)
[2022-01-20 16:31] VITALS: BP 105/55
--- NOTE | 2022-01-20 18:48 | EKG ---
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
== END 2022-01-20 17:59 | disposition home or self-care (01) ==
LOC: ER 14:24
DX: E11.22 Type 2 diabetes mellitus with diabetic chronic kidney disease (principal); I13.2 Hypertensive heart and chronic kidney disease with heart failure and with stage 5 chronic kidney disease, or end stage renal disease; I50.9 Heart failure, unspecified; N18.6 End stage renal disease; Z99.2 Dependence on renal dialysis; E86.9 Volume depletion, unspecified; I95.9 Hypotension, unspecified; F31.9 Bipolar disorder, unspecified; K21.9 Gastro-esophageal reflux disease without esophagitis; E78.00 Pure hypercholesterolemia, unspecified; E03.9 Hypothyroidism, unspecified; G30.9 Alzheimer's disease, unspecified; F02.80 Dementia in other diseases classified elsewhere, unspecified severity, without behavioral disturbance, psychotic disturbance, mood disturbance, and anxiety; Z95.0 Presence of cardiac pacemaker; Z88.1 Allergy status to other antibiotic agents; Z88.8 Allergy status to other drugs, medicaments and biological substances
CPT/HCPCS: 36415; 80048; 85025; 93005; 96360; 99285; J7040

== ENCOUNTER 2022-01-31 13:30 | Inpatient (IN) | payer MEDICARE, OTHER ==
[2022-01-31] VITALS (12 sets, daily range): BP systolic 94–123; BP diastolic 33–54
[~2022-01-31] VITALS: Ht 152.4 cm; Wt 62.8 kg
--- NOTE | 2022-01-31 13:39 | PHYS DOC ---
Past Medical History Past Medical History: Anemia, Anxiety, Arthritis, Bipolar, CHF, Dementia, Depression, Diabetes-Type II, GERD, High Cholesterol, Hypertension, Hypothyroid, Renal Failure Additional Past Medical Histor: major depressive disorder, Sick sinus synd, alzheimer's, Past Surgical History: No Surgical History Additional Past Surgical Histo: DIALYSIS SHUNT/FISTULA LEFT SIDE Smoking Status: Never Smoker Alcohol Use: None Drug Use: None General Adult EDM: Chief Complaint: CHEST PAIN-CARDIAC NATURE HPI: HPI: 77 yo F PMH ESRD (TThS), hypertension, hyperlipidemia, diabetes and anemia of chronic disease, presents the ED brought in by EMS after patient complained of chest pain while receiving dialysis, had 40 minutes left upper session. Patient reports she had left-sided chest pain that started as "really hard," then became "very little" at around 8pm last nigt. States it occurred while in dialysis today. Currently asymptomatic. States pain lasted < 1 hour. Denies associated nausea, vomiting, diaphoresis, radiating pain or fever. Review of Systems: Review of Systems: Constitutional: Denies fever or chills. [] Eyes: Denies change in visual acuity. [] HENT: Denies nasal congestion or sore throat. [] Respiratory: Denies cough or shortness of breath. [] Cardiovascular: Denies syncope or edema. [] GI: Denies abdominal pain, nausea, vomiting, bloody stools or diarrhea. [] : Denies dysuria or hematuria. [] Musculoskeletal: Denies back pain or joint pain. [] Integument: Denies rash or diaphoresis Neurologic: Denies headache, focal weakness or sensory changes. [] Endocrine: Denies polyuria or polydipsia. [] Lymphatic: Denies swollen glands. [] Psychiatric: Denies depression or anxiety. [] Heart Score: C/O Chest Pain: Yes HEART Score for Chest Pain: HEART Score for Chest Pain Response (Comments) Value History Slighlty/Non-Suspicious 0 ECG Nonspecific Repolarizatio 1 Age > 65 2 Risk Factors >3 Risk Factors or Hx CAD 2 Troponin < Normal Limit 0 Total 5 Risk Factors: Risk Factors: DM, Current or recent (<one month) smoker, HTN, HLP, family history of CAD, obesity. Risk Scores: Score 0 - 3: 2.5% MACE over next 6 weeks - Discharge Home Score 4 - 6: 20.3% MACE over next 6 weeks - Admit for Clinical Observation Score 7 - 10: 72.7% MACE over next 6 weeks - Early Invasive Strategies Allergies: Allergies: Allergies Coded Allergies Type Severity Reaction Last Updated Verified amoxicillin Allergy Intermediate 01/20/22 Yes clavulanic acid Allergy Intermediate 01/20/22 Yes Physical Exam: PE: Constitutional: Well developed, well nourished, no acute distress, non-toxic appearance, is very hard of hearing and does not have her hearing aids, sleeping comfortably in the ED HENT: Normocephalic, atraumatic, Eyes: EOMI, conjunctiva normal, no discharge. Neck: Normal range of motion, supple, Cardiovascular: S1/2 present, regular rhythm Lungs & Thorax: Speaking in full sentences, bilateral equal chest rise, no tachypnea or increased work of breathing Abdomen: soft, no tenderness, Skin: Warm, dry, no erythema, no rash. [] Extremities: No tenderness, no cyanosis, no lower extremity edema Neurologic: Alert and oriented X 3, normal motor function, normal sensory function, no focal deficits noted. [] Psychologic: Affect normal, judgement normal, mood normal. [] EKG: EKG: Sinus rhythm 71 bpm, no axis deviation, first-degree AV block with NV interval 204, QTc 581, T wave inversion, no ST elevation or ST depression Radiology/Procedures: Radiology/Procedures: IMAGING REPORT Signed PATIENT: MICHAEL GRESHAMUNT: [id number] : 1945 LOCATION: ER AGE: 77 SEX: F EXAM STATUS: PRE ER ORD. PHYSICIAN: FORREST GUIDRY DO REASON: cp PROCEDURE: PORTABLE CHEST 1V Exam performed: One view chest. Indication: Reason: cp / Spl. Instructions: / History: Date of Service: 01/31/2022 1:51 PM Comparison: One view chest from 12/09/2021. Single AP upright portable view chest findings: Study somewhat limited due to positioning Cardiomediastinal silhouette is stable. Pulmonary vascularity is mildly prominent. There is a stent below the left clavicle perhaps in the subclavian artery or vein No acute infiltrates, eff usion or pneumothorax is detected. The bony structures are normal. Impression: Stable one view chest No acute cardiopulmonary process is detected. Electronically signed by: Kiera Constantino MD (01/31/2022 1:57 PM) [id number] DICTATED and SIGNED BY: KIERA CONSTANTINO MD DATE: 01/31/22 4181 Course & Med Decision Making: Course & Med Decision Making Pertinent Labs and Imaging studies reviewed. (See chart for details) Concern for chest pain in a well-appearing female, initial troponin negative. EKG with first-degree AV block and prolonged QTC. Incidental finding of anemia of chronic disease, significant drop in the last [address] Paulino and he agrees with 1 unit blood transfusion. Will admit for further medical management with nephrology consulted. Patient stable at time of admission agrees with this plan. I have spoken with the patient and/or caregivers. I have explained the patient's condition, diagnosis and treatment plan based on the information available to me at this time. I have answered the patient's and/or caregivers questions and answered any concerns. The patient and/or caregivers have as good an understanding of the patient's diagnosis, condition and treatment plan as can be expected at this point. The patient has been stabilized within the capability of the emergency department. The patient will be transported for further care and management or will be moved to an observation or inpatient service. I have communicated with the staff or medical practitioner taking over this patient's care. Ulysses Disclaimer: Ulysses Disclaimer: This electronic medical record was generated, in whole or in part, using a voice recognition dictation system. Departure Departure Impression: Primary Impression: Chest pain Additional Impressions: Anemia ESRD (end stage renal disease) Disposition: ADMITTED INPATIENT Admitting Physician: Houston Reid Condition: STABLE Referrals: HOUSTON REID MD (PCP) FORREST GUIDRY DO Jan 31, 2022 13:39
--- NOTE | 2022-01-31 13:59 | RAD ---
Exam performed: One view chest. Indication: Reason: cp / Spl. Instructions: / History: Date of Service: 01/31/2022 1:51 PM Comparison: One view chest from 12/09/2021. Single AP upright portable view chest findings: Study somewhat limited due to positioning Cardiomediastinal silhouette is stable. Pulmonary vasculari ty is mildly prominent. There is a stent below the left clavicle perhaps in the subclavian artery or vein No acute infiltrates, effusion or pneumothorax is detected. The bony structures are normal. Impression: Stable one view chest No acute cardiopulmonary process is detected. Electronically signed by: Lakesha Constantino MD (01/31/2022 1:57 PM) [id number]
[2022-01-31 14:41] LABS: PROTHROMBIN TIME PATIENT 13.9 SEC (11.7-14.0)
[2022-01-31 14:43] LABS: BASO % 0 % (0-3); EOS # 0.2 x10^3/uL (0.0-0.7); EOS % 4 % (0-3); HEMATOCRIT 21.2 % (36.0-47.0); LYMPH # 0.9 x10^3/uL (1.0-4.8); LYMPH % 21 % (24-48); MEAN CORPUSCULAR HEMOGLOBIN 31 pg (25-35); MEAN CORPUSCULAR HGB CONC 32 g/dL (31-37); MEAN CORPUSCULAR VOLUME 96 fL (79-100); MONO # 0.3 x10^3/uL (0.0-1.1); MONO % 7 % (0-9); NEUT # 2.9 x10^3/uL (1.8-7.7); NEUT % 68 % (31-73); PLATELET COUNT 281 x10^3/uL (140-400); RED CELL DISTRIBUTION WIDTH 16.9 % (11.5-14.5); WHITE BLOOD COUNT 4.3 x10^3/uL (4.0-11.0)
[2022-01-31 14:45] LABS: HEMOGLOBIN 6.8 g/dL (12.0-15.5)
[2022-01-31 14:52] LABS: CALCIUM 8.4 mg/dL (8.5-10.1); GFR 15.2; POTASSIUM 3.2 mmol/L (3.5-5.1)
[2022-01-31 14:58] LABS: ALBUMIN 2.6 g/dL (3.4-5.0); ALBUMIN/GLOBULIN RATIO 0.6 (1.0-1.7); MAGNESIUM 1.9 mg/dL (1.8-2.4); TOTAL BILIRUBIN 0.5 mg/dL (0.2-1.0); TOTAL PROTEIN 6.8 g/dL (6.4-8.2)
[2022-01-31] MEDS ORDERED: INSU100I13 SQ (17:45)
--- NOTE | 2022-01-31 17:56 | NUR ---
Patient arrived to room 107 from ED. Patient attached to ICU monitor, c/o no pain, diet tray ordered, notified. Dr. Robledo called regarding 1u PRBC ordered by ED for a Hgb 6.8. Addendum: 01/31/22 at 1833 by ALEIDA PEREZ RN According to ED notes, Dr. Reid is aware of transfusion.
[2022-01-31] MEDS ORDERED: ACETAMINOPHEN 500 MG TABLET PO PRN (20:15)
[2022-01-31] MEDS ORDERED: traMADol 50 MG TABLET PO PRN (20:15)
[2022-01-31] MEDS ORDERED: ONDANSETRON ODT 4 MG TAB.RAPDIS. PO PRN (20:15)
[2022-01-31] MEDS ORDERED: DOCUSATE SODIUM 100 MG CAPSULE. PO PRN (20:15)
[2022-01-31] MEDS ORDERED: TRIAMCINOLONE ACETONIDE 0.1% TOPICAL CREAM 15GM TUBE. TP PRN (20:45)
[2022-01-31] MEDS ORDERED: NYSTATIN 100,000 UNIT/GM TOPICAL CREAM 15GM TUBE. TP PRN (20:45)
[2022-01-31] MEDS ORDERED: NON FORMULARY ITEM (Melatonin 2 TAB) PO SCH (21:00)
[2022-01-31] MEDS: INSULIN GLARGINE SYRINGE. SQ SCH (21:00)
[2022-01-31] MEDS: POLYVINYL ALCOHOL 1.4% OPHTH SOLUTION 15ML BOTTLE. OU SCH (21:00)
[2022-01-31] MEDS: QUEtiapine 25 MG TABLET. PO SCH (21:33)
[2022-01-31] MEDS: traZODone 50 MG TABLET. PO PRN (21:33)
[2022-01-31] MEDS: APIXABAN 2.5 MG TABLET. PO SCH (21:33)
[2022-01-31] MEDS: busPIRone 5 MG TABLET. PO SCH (21:33)
[2022-01-31] MEDS: CALCIUM CARBONATE 500 MG TAB.CHEW PO SCH (21:33)
[2022-01-31] MEDS: ATORVASTATIN CALCIUM 20 MG TABLET PO SCH (21:36)
[2022-01-31] MEDS: HYDROCORTISONE 1% LOTION BOTTLE. TP SCH (21:36)
--- NOTE | 2022-01-31 22:00 | NUR ---
Pt refused long acting insulin dose of 5 units. Pt states "last time I got real dizzy and called my daughter". Addendum: 02/01/22 at 0059 by ISMA RIVERA RN RN Amended: Links added.
[2022-02-01] VITALS (7 sets, daily range): BP systolic 95–120; BP diastolic 32–54
[2022-02-01] MEDS: APIXABAN 2.5 MG TABLET. PO SCH ×2 (07:48→20:35)
[2022-02-01] MEDS: AMIODARONE HCL 200 MG TABLET. PO SCH (07:48)
[2022-02-01] MEDS: LEVOTHYROXINE 175 MCG TABLET PO SCH (07:48)
[2022-02-01] MEDS: DONEPEZIL HCL 10 MG TABLET. PO SCH (07:48)
[2022-02-01] MEDS: QUEtiapine 25 MG TABLET. PO SCH ×2 (07:49→20:35)
[2022-02-01] MEDS: busPIRone 5 MG TABLET. PO SCH ×3 (07:49→20:35)
[2022-02-01] MEDS: CALCIUM ACETATE 667 MG CAPSULE PO SCH ×3 (07:49→17:26)
[2022-02-01] MEDS: ISOSORBIDE MONONITRATE ER 30 MG TAB.ER.24H PO SCH (07:49)
[2022-02-01] MEDS: POTASSIUM CHLORIDE 10 MEQ TABLET.ER. PO SCH (07:49)
[2022-02-01] MEDS: INSULIN LISPRO 300 UNITS/3 ML VIAL. SQ SCH ×3 (07:50→17:00)
[2022-02-01 07:59] LABS: BASO % 1 % (0-3); EOS # 0.2 x10^3/uL (0.0-0.7); EOS % 6 % (0-3); HEMATOCRIT 23.9 % (36.0-47.0); HEMOGLOBIN 8.1 g/dL (12.0-15.5); LYMPH # 1.3 x10^3/uL (1.0-4.8); LYMPH % 35 % (24-48); MEAN CORPUSCULAR HEMOGLOBIN 32 pg (25-35); MEAN CORPUSCULAR HGB CONC 34 g/dL (31-37); MEAN CORPUSCULAR VOLUME 93 fL (79-100); MONO # 0.3 x10^3/uL (0.0-1.1); MONO % 8 % (0-9); NEUT # 1.9 x10^3/uL (1.8-7.7); NEUT % 49 % (31-73); PLATELET COUNT 276 x10^3/uL (140-400); RED BLOOD COUNT 2.57 x10^6/uL (3.50-5.40); RED CELL DISTRIBUTION WIDTH 18.5 % (11.5-14.5); WHITE BLOOD COUNT 3.8 x10^3/uL (4.0-11.0)
[2022-02-01 08:13] LABS: CALCIUM 7.8 mg/dL (8.5-10.1); CREATININE 4.7 mg/dL (0.6-1.0); GFR 9.1; POTASSIUM 3.6 mmol/L (3.5-5.1)
[2022-02-01] MEDS: HYDROCORTISONE 1% LOTION BOTTLE. TP SCH ×2 (08:33→20:36)
[2022-02-01] MEDS: POLYVINYL ALCOHOL 1.4% OPHTH SOLUTION 15ML BOTTLE. OU SCH ×2 (08:33→20:35)
[2022-02-01] MEDS: METOPROLOL SUCC 24HR ER 25 MG TAB.ER.24H. PO SCH (09:00)
--- NOTE | 2022-02-01 09:53 | PDOC2 ---
CONSULT Date of Consult Date of Consult DATE: 02/01/22 TIME: 09:48 Reason for Consult Reason for Consult: ESRD Referring Physician Referring Physician: NADEEM Identification/Chief Complaint Chief Complaint CHEST PAIN Source Source: Chart review, Patient History of Present Illness Reason for Visit: THIS IS A 77 YR OLD WITH ESRD. ON OP HD TTS. WENT TO HD YESTERDAY AND HAD CHEST PAIN. STATED CHEST PAIN STARTED WEDNESDAY PM. NEARLY FINISHED HER FULL TX BUT DUE TO RECURRENT CHEST PAIN SHE WAS TAKEN OFF AND SENT TO THE ER. HER ESRD IS DUE TO DM II AND HTN. LABS C/W ESRD. HGB OF 6.8 NOTED Past Medical History Cardiovascular: AFIB, CHF, HTN, Hyperlipidemia, Pulmonary hypertension, Other Pulmonary: No pertinent hx CENTRAL NERVOUS SYSTEM: Dementia, Periperal neuropathy GI: GERD, Peptic Ulcer disease Heme/Onc: Anemia NOS Hepatobiliary: No pertinent hx Psych: Anxiety, Bipolar, Depression Musculoskeletal: Osteoarthritis Rheumatologic: No pertinent hx Infectious disease: No pertinent hx Renal/: Chronic renal failure Endocrine: Diabetes, Hypothyroidism, Hyperparathyroidism Past Surgical History Past Surgical History: Pacemaker, Hysterectomy Family History Family History: Alzheimer's Disease Social History ALCOHOL: none Drugs: None Lives: with Family Current Problem List Problem List Problems Medical Problems: (1) Chest pain Status: Acute (2) ESRD (end stage renal disease) Status: Acute (3) Low hemoglobin Status: Acute Current Medications Current Medications Current Medications Acetaminophen (Tylenol) 500 mg PRN Q6HRS PRN PO MILD PAIN 1-3; Start 01/31/22 at 20:15 Apixaban (Eliquis) 2.5 mg BID PO Last administered on 02/01/22at 07:48; Start 01/31/22 at 21:00 Atorvastatin Calcium (Lipitor) 20 mg HS PO Last administered on 01/31/22at 21:36; Start 01/31/22 at 21:00 Buspirone HCl (Buspar) 5 mg TID PO Last administered on 02/01/22at 07:49; Start 01/31/22 at 21:00 Docusate Sodium (Colace) 100 mg PRN DAILY PRN PO CONSTIPATION; Start 01/31/22 at 20:15 Donepezil HCl (Aricept) 10 mg DAILY PO Last administered on 02/01/22at 07:48; Start 02/01/22 at 09:00 Ergocalciferol (Vitamin D2) 50,000 unit Th@0900 PO ; Start 02/05/22 at 09:00 Isosorbide Mononitrate (Imdur) 30 mg DAILY PO Last administered on 02/01/22at 07:49; Start 02/01/22 at 09:00 Levothyroxine Sodium (Synthroid) 175 mcg DAILY06 PO Last administered on 02/01/22at 07:48; Start 02/01/22 at 06:00 Metoprolol Succinate (Toprol Xl) 25 mg DAILY PO ; Start 02/01/22 at 09:00 Ondansetron HCl (Zofran Odt) 4 mg PRN Q6HRS PRN PO NAUSEA; Start 01/31/22 at 20:15 Potassium Chloride (Klor-Con) 10 meq DAILY PO Last administered on 02/01/22at 07:49; Start 02/01/22 at 09:00 Tramadol HCl (Ultram) 50 mg PRN Q8HRS PRN PO MODERATE PAIN; Start 01/31/22 at 20:15 Trazodone HCl (Desyrel) 50 mg PRN QHS PRN PO INSOMNIA Last administered on 01/31/22 21:33; Start 01/31/22 at 20:15 Amiodarone HCl (Cordarone) 100 mg DAILY PO Last administered on 02/01/22 07:48; Start 02/01/22 at 09:00 Calcium Acetate (Phoslo) 667 mg TIDWMEALS PO Last administered on 02/01/22 07:49; Start 02/01/22 at 08:00 Calcium Carbonate/ Glycine (Tums) 500 mg QHS PO Last administered on 01/31/22 21:33; Start 01/31/22 at 21:00 Glycerin/ Hypromellose/ Polyethylene (Artificial Tears) 1 drop BID OU Last administered on 01/31/22at 21:00; Start 01/31/22 at 21:00 Hydrocortisone (Cortizone-10) 1 jarvis BID TP Last administered on 01/31/22at 21:36; Start 01/31/22 at 21:00 Insulin Human Lispro (HumaLOG) 4 units TIDWMEALS SQ Last administered on 02/01/22at 07:50; Start 02/01/22 at 08:00 Insulin Glargine (Lantus Syringe) 5 unit QHS SQ ; Start 01/31/22 at 21:00 Non-Formulary Medication (Melatonin ) 2 tab QHS PO ; Start 01/31/22 at 21:00; Status UNV Nystatin (Mycostatin) 1 jarvis PRN BID PRN TP REDNESS; Start 01/31/22 at 20:45 Quetiapine Fumarate (SEROquel) 50 mg BID PO Last administered on 02/01/22at 07:49; Start 01/31/22 at 21:00 Triamcinolone Acetonide (Kenalog 0.1%) 1 jarvis PRN BID PRN TP REDNESS; Start 01/31/22 at 20:45 Active Scripts Active Ondansetron Odt (Ondansetron) 4 Mg Tab.rapdis 1 Tab PO PRN Q6-8HRS PRN Reported Lantus Solostar (Insulin Glargine,Hum.rec.anlog) 100 Unit/1 Ml Insuln.pen 5 Unit SQ QHS Amiodarone Hcl 100 Mg Tablet 1 Tab PO DAILY 30 Days Klor-Con 10 (Potassium Chloride) 10 Meq Tablet.er 10 Meq PO DAILY Metoprolol Succinate ( Xl ) (Metoprolol Succinate) 25 Mg Tab.er.24h 1 Tab PO DAILY Levothyroxine Sodium 175 Mcg Tablet 1 Tab PO DAILY Eliquis (Apixaban) 2.5 Mg Tablet 2.5 Mg PO BID Atorvastatin Calcium 20 Mg Tablet 20 Mg PO HS Thera Tears (Carboxymethylcellulose Sodium) 15 Ml Drops 1 Drop EACHEYE BID Acetaminophen 500 Mg Tablet 500 Mg PO PRN Q6HRS PRN Trazodone Hcl 50 Mg Tablet 50 Mg PO PRN QHS Tums (Calcium Carbonate) 300 Mg Tab.chew 500 Mg PO HS Tramadol Hcl 50 Mg Tablet 50 Mg PO Q8HRS PRN Melatonin 3 Mg Tablet 2 Tab PO QHS Hydrocortisone 59 Ml Lotion 1 Jarvis TP BID Colace (Docusate Sodium) 100 Mg Capsule 1 Cap PO PRN DAILY PRN Calcium Acetate 667 Mg Tablet 667 Mg PO TIDWMEALS Buspirone Hcl 5 Mg Tablet 1 Tab PO TID Seroquel (Quetiapine Fumarate) 50 Mg Tablet 50 Mg PO BID Nystatin-Triamcinolone Cream (Nystatin/Triamcin) 15 Gm Cream..g. 1 Jarvis TP PRN PRN Novolog Flexpen (Insulin Aspart) 100 Unit/1 Ml Insuln.pen 4 Unit SQ TIDWMEALS Vitamin D2 (Ergocalciferol (Vitamin D2)) 50,000 Unit Capsule 50,000 Unit PO WEEKLY Donepezil Hcl 10 Mg Tablet 10 Mg PO DAILY Isosorbide Mononitrate Er (Isosorbide Mononitrate) 30 Mg Tab.er.24h 1 Tab PO DAILY Allergies Allergies: Coded Allergies: amoxicillin (Verified Allergy, Intermediate, 01/20/22) clavulanic acid (Verified Allergy, Intermediate, 01/20/22) ROS General: YES: Fatigue, Malaise PSYCHOLOGICAL ROS: YES: Anxiety, Behavioral Disorder, Depression Eyes: Yes Decreased vision ALLERGY AND IMMUNOLOGY: YES: Seasonal Allergies Respiratory: YES: Cough Cardiovascular: yes Chest Pain Gastrointestinal: Yes Constipation Genitourinary: YES Other (ANURIA) Musculoskeletal: Yes Muscular Weakness Neurological: Yes Weakness Skin: Yes Dry Skin Physical Exam General: Alert, Oriented X3, Cooperative, No acute distress HEENT: Atraumatic, PERRLA Lungs: Clear to auscultation Heart: Regular rate Abdomen: Normal bowel sounds, Soft, No tenderness Extremities: No cyanosis Skin: No breakdown Neuro: Normal speech Psych/Mental Status: Mood NL MUSCULOSKELETAL: No joint tenderness, No deformity Vitals VITALS Vital Signs Date Time Temp Pulse Resp B/P (MAP) Pulse Ox O2 Delivery O2 Flow Rate FiO2 02/01/22 08:00 Room Air 02/01/22 07:49 68 108/37 02/01/22 07:00 98.0 16 100 98.0 Labs Labs Laboratory Tests Test 01/31/22 14:20 01/31/22 18:45 01/31/22 21:41 02/01/22 07:45 White Blood Count 4.3 x10^3/uL (4.0-11.0) 3.8 x10^3/uL (4.0-11.0) Red Blood Count 2.20 x10^6/uL (3.50-5.40) 2.57 x10^6/uL (3.50-5.40) Hemoglobin 6.8 g/dL (12.0-15.5) 8.1 g/dL (12.0-15.5) Hematocrit 21.2 % (36.0-47.0) 23.9 % (36.0-47.0) Mean Corpuscular Volume 96 fL (79-100) 93 fL (79-100) Mean Corpuscular Hemoglobin 31 pg (25-35) 32 pg (25-35) Mean Corpuscular Hemoglobin Concent 32 g/dL (31-37) 34 g/dL (31-37) Red Cell Distribution Width 16.9 % (11.5-14.5) 18.5 % (11.5-14.5) Platelet Count 281 x10^3/uL (140-400) 276 x10^3/uL (140-400) Neutrophils (%) (Auto) 68 % (31-73) 49 % (31-73) Lymphocytes (%) (Auto) 21 % (24-48) 35 % (24-48) Monocytes (%) (Auto) 7 % (0-9) 8 % (0-9) Eosinophils (%) (Auto) 4 % (0-3) 6 % (0-3) Basophils (%) (Auto) 0 % (0-3) 1 % (0-3) Neutrophils # (Auto) 2.9 x10^3/uL (1.8-7.7) 1.9 x10^3/uL (1.8-7.7) Lymphocytes # (Auto) 0.9 x10^3/uL (1.0-4.8) 1.3 x10^3/uL (1.0-4.8) Monocytes # (Auto) 0.3 x10^3/uL (0.0-1.1) 0.3 x10^3/uL (0.0-1.1) Eosinophils # (Auto) 0.2 x10^3/uL (0.0-0.7) 0.2 x10^3/uL (0.0-0.7) Basophils # (Auto) 0.0 x10^3/uL (0.0-0.2) 0.0 x10^3/uL (0.0-0.2) Prothrombin Time 13.9 SEC (11.7-14.0) Prothromb Time International Ratio 1.1 (0.8-1.1) Activated Partial Thromboplast Time 30 SEC (24-38) Sodium Level 138 mmol/L (136-145) 137 mmol/L (136-145) Potassium Level 3.2 mmol/L (3.5-5.1) 3.6 mmol/L (3.5-5.1) Chloride Level 101 mmol/L (98-107) 103 mmol/L (98-107) Carbon Dioxide Level 30 mmol/L (21-32) 28 mmol/L (21-32) Anion Gap 7 (6-14) 6 (6-14) Blood Urea Nitrogen 8 mg/dL (7-20) 21 mg/dL (7-20) Creatinine 3.0 mg/dL (0.6-1.0) 4.7 mg/dL (0.6-1.0) Estimated GFR (Cockcroft-Gault) 15.2 9.1 BUN/Creatinine Ratio 3 (6-20) Glucose Level 196 mg/dL (70-99) 266 mg/dL (70-99) Calcium Level 8.4 mg/dL (8.5-10.1) 7.8 mg/dL (8.5-10.1) Magnesium Level 1.9 mg/dL (1.8-2.4) Total Bilirubin 0.5 mg/dL (0.2-1.0) Aspartate Amino Transf (AST/SGOT) 20 U/L (15-37) Alanine Aminotransferase (ALT/SGPT) 15 U/L (14-59) Alkaline Phosphatase 118 U/L (46-116) Troponin I High Sensitivity 14 ng/L (4-50) 17 ng/L (4-50) 15 ng/L (4-50) IZ-Ryc-Q-Type Natriuretic Peptide 77760 pg/mL (0-449) Total Protein 6.8 g/dL (6.4-8.2) Albumin 2.6 g/dL (3.4-5.0) Albumin/Globulin Ratio 0.6 (1.0-1.7) Lipase 104 U/L (73-393) Glucose (Fingerstick) 192 mg/dL (70-99) Laboratory Tests Test 01/31/22 14:20 01/31/22 18:45 01/31/22 21:41 02/01/22 07:45 White Blood Count 4.3 x10^3/uL (4.0-11.0) 3.8 x10^3/uL (4.0-11.0) Red Blood Count 2.20 x10^6/uL (3.50-5.40) 2.57 x10^6/uL (3.50-5.40) Hemoglobin 6.8 g/dL (12.0-15.5) 8.1 g/dL (12.0-15.5) Hematocrit 21.2 % (36.0-47.0) 23.9 % (36.0-47.0) Mean Corpuscular Volume 96 fL (79-100) 93 fL (79-100) Mean Corpuscular Hemoglobin 31 pg (25-35) 32 pg (25-35) Mean Corpuscular Hemoglobin Concent 32 g/dL (31-37) 34 g/dL (31-37) Red Cell Distribution Width 16.9 % (11.5-14.5) 18.5 % (11.5-14.5) Platelet Count 281 x10^3/uL (140-400) 276 x10^3/uL (140-400) Neutrophils (%) (Auto) 68 % (31-73) 49 % (31-73) Lymphocytes (%) (Auto) 21 % (24-48) 35 % (24-48) Monocytes (%) (Auto) 7 % (0-9) 8 % (0-9) Eosinophils (%) (Auto) 4 % (0-3) 6 % (0-3) Basophils (%) (Auto) 0 % (0-3) 1 % (0-3) Neutrophils # (Auto) 2.9 x10^3/uL (1.8-7.7) 1.9 x10^3/uL (1.8-7.7) Lymphocytes # (Auto) 0.9 x10^3/uL (1.0-4.8) 1.3 x10^3/uL (1.0-4.8) Monocytes # (Auto) 0.3 x10^3/uL (0.0-1.1) 0.3 x10^3/uL (0.0-1.1) Eosinophils # (Auto) 0.2 x10^3/uL (0.0-0.7) 0.2 x10^3/uL (0.0-0.7) Basophils # (Auto) 0.0 x10^3/uL (0.0-0.2) 0.0 x10^3/uL (0.0-0.2) Prothrombin Time 13.9 SEC (11.7-14.0) Prothromb Time International Ratio 1.1 (0.8-1.1) Activated Partial Thromboplast Time 30 SEC (24-38) Sodium Level 138 mmol/L (136-145) 137 mmol/L (136-145) Potassium Level 3.2 mmol/L (3.5-5.1) 3.6 mmol/L (3.5-5.1) Chloride Level 101 mmol/L (98-107) 103 mmol/L (98-107) Carbon Dioxide Level 30 mmol/L (21-32) 28 mmol/L (21-32) Anion Gap 7 (6-14) 6 (6-14) Blood Urea Nitrogen 8 mg/dL (7-20) 21 mg/dL (7-20) Creatinine 3.0 mg/dL (0.6-1.0) 4.7 mg/dL (0.6-1.0) Estimated GFR (Cockcroft-Gault) 15.2 9.1 BUN/Creatinine Ratio 3 (6-20) Glucose Level 196 mg/dL (70-99) 266 mg/dL (70-99) Calcium Level 8.4 mg/dL (8.5-10.1) 7.8 mg/dL (8.5-10.1) Magnesium Level 1.9 mg/dL (1.8-2.4) Total Bilirubin 0.5 mg/dL (0.2-1.0) Aspartate Amino Transf (AST/SGOT) 20 U/L (15-37) Alanine Aminotransferase (ALT/SGPT) 15 U/L (14-59) Alkaline Phosphatase 118 U/L (46-116) Troponin I High Sensitivity 14 ng/L (4-50) 17 ng/L (4-50) 15 ng/L (4-50) ZN-Xyt-T-Type Natriuretic Peptide 30467 pg/mL (0-449) Total Protein 6.8 g/dL (6.4-8.2) Albumin 2.6 g/dL (3.4-5.0) Albumin/Globulin Ratio 0.6 (1.0-1.7) Lipase 104 U/L (73-393) Glucose (Fingerstick) 192 mg/dL (70-99) Images Images PATIENT: DAVID GRESHAMCOUNT: [id number] : 1945 LOCATION: ER AGE: 77 SEX: F EXAM STATUS: PRE ER ORD. PHYSICIAN: FORREST GUIDRY DO REASON: cp PROCEDURE: PORTABLE CHEST 1V Exam performed: One view chest. Indication: Reason: cp / Spl. Instructions: / History: Date of Service: 01/31/2022 1:51 PM Comparison: One view chest from 12/09/2021. Single AP upright portable view chest findings: Study somewhat limited due to positioning Cardiomediastinal silhouette is stable. Pulmonary vascularity is mildly prominent. There is a stent below the left clavicle perhaps in the subclavian artery or vein No acute infiltrates, effusion or pneumothorax is detected. The bony structures are normal. Impression: Stable one view chest No acute cardiopulmonary process is detected. Electronically signed by: Lakesha Constantino MD (01/31/2022 1:57 PM) [id number] Assessment/Plan Assessment/Plan IMP CHEST PAIN ANEMIA DM II HTN ESRD PLAN [facility] TTS WILL FOLLOW CARMEN PAGE MD Feb 01, 2022 09:53
--- NOTE | 2022-02-01 10:39 | HP ---
DATE OF SERVICE: 02/01/2022 ADMIT DATE: 01/31/2022 CHIEF COMPLAINT AND HISTORY OF PRESENT ILLNESS: This 77-year-old female with history of end-stage renal disease, diabetes, hypertension, hyperlipidemia, anemia, started having chest pain at dialysis, necessitating then stopping approximately 40 minutes earlier than planned. She is extremely hard of hearing and it is almost impossible to get history out of her. She describes the pain as starting in her epigastric and going up into her chest, lasting about 15-20 minutes and then resolving. She has had no further chest pain. I cannot get the character of the chest pain or associated symptoms out of her. She was admitted to rule out cardiac etiology. Incidentally, she was found to have a hemoglobin of 6.8, which is down significantly from prior and she has received 1 unit of packed red blood cells and I am going to ask GI to evaluate and started her on a PPI at this point. PAST MEDICAL HISTORY: Remarkable for the anemia, anxiety, bipolar, depression, hard of hearing, depression, diabetes, hypertension, hyperlipidemia, GERD, hypothyroidism, end-stage renal disease. MEDICATIONS: Brought with the patient, listed on the computer have been addressed. ALLERGIES: SHE IS ALLERGIC TO AUGMENTIN. SOCIAL HISTORY: She is a lifetime nonsmoker, nondrinker. Does not use drugs, is , lives in long-term currently. FAMILY HISTORY: Noncontributory. REVIEW OF SYSTEMS: As mentioned above. PHYSICAL EXAMINATION: GENERAL: She is a well-developed, well-nourished female in no acute distress. VITAL SIGNS: Stable. She is afebrile. HEAD, EYES, EARS, NOSE AND THROAT: Unremarkable. NECK: Supple, without adenopathy or thyromegaly. CHEST: Clear to auscultation. HEART: Regular rate and rhythm. ABDOMEN: Soft, nontender, without hepatosplenomegaly or mass. EXTREMITIES: Without cyanosis, clubbing or edema. NEUROLOGIC: Nonfocal. LABORATORY DATA: Initial labs are remarkable for the hemoglobin of 6.8, it is up to 8.1 after 1 unit. Electrolytes; CMP consistent with her end-stage renal disease. BNP is elevated at 220,000. INR is within normal limits. Chest x-ray shows no acute changes. Troponin today are unremarkable. EKG shows no ischemic changes. ASSESSMENT: 1. Chest pain. 2. Symptomatic anemia. 3. Multiple other problems listed above. PLAN: PPI, GI evaluation, Cardiology evaluation, ongoing dialysis. JACOB DR: Katelynn TID: [id number]
--- NOTE | 2022-02-01 11:45 | PDOC2 ---
CONSULT Date of Consult Date of Consult DATE: 02/01/22 TIME: 11:40 Reason for Consult Reason for Consult: Chronic anemia Identification/Chief Complaint Chief Complaint 77 yo [place] admitted after dialysis with chest pain and fatigue. Labs reveal worse Hg than normal. No bleeding or additional history is obtained from patient with decreased hearing acuity. Weight and appetite are apparently stable. GI consult requested to further assist with evaluation. Past Medical History Cardiovascular: AFIB, CHF, HTN, Hyperlipidemia, Pulmonary hypertension, Other Pulmonary: No pertinent hx CENTRAL NERVOUS SYSTEM: Dementia, Periperal neuropathy GI: GERD, Peptic Ulcer disease Heme/Onc: Anemia NOS Hepatobiliary: No pertinent hx Psych: Anxiety, Bipolar, Depression Musculoskeletal: Osteoarthritis Rheumatologic: No pertinent hx Infectious disease: No pertinent hx Renal/: Chronic renal failure Endocrine: Diabetes, Hypothyroidism, Hyperparathyroidism Past Surgical History Past Surgical History: Pacemaker, Hysterectomy Family History Family History: Alzheimer's Disease Social History ALCOHOL: none Drugs: None Lives: with Family Current Problem List Problem List Problems Medical Problems: (1) Chest pain Status: Acute (2) ESRD (end stage renal disease) Status: Acute (3) Low hemoglobin Status: Acute Current Medications Current Medications Current Medications Acetaminophen (Tylenol) 500 mg PRN Q6HRS PRN PO MILD PAIN 1-3; Start 01/31/22 at 20:15 Apixaban (Eliquis) 2.5 mg BID PO Last administered on 02/01/22at 07:48; Start 01/31/22 at 21:00 Atorvastatin Calcium (Lipitor) 20 mg HS PO Last administered on 01/31/22at 21:36; Start 01/31/22 at 21:00 Buspirone HCl (Buspar) 5 mg TID PO Last administered on 02/01/22at 07:49; Start 01/31/22 at 21:00 Docusate Sodium (Colace) 100 mg PRN DAILY PRN PO CONSTIPATION; Start 01/31/22 at 20:15 Donepezil HCl (Aricept) 10 mg DAILY PO Last administered on 02/01/22at 07:48; Start 02/01/22 at 09:00 Ergocalciferol (Vitamin D2) 50,000 unit Th@0900 PO ; Start 02/05/22 at 09:00 Isosorbide Mononitrate (Imdur) 30 mg DAILY PO Last administered on 02/01/22at 07:49; Start 02/01/22 at 09:00 Levothyroxine Sodium (Synthroid) 175 mcg DAILY06 PO Last administered on 02/01/22 07:48; Start 02/01/22 at 06:00 Metoprolol Succinate (Toprol Xl) 25 mg DAILY PO ; Start 02/01/22 at 09:00 Ondansetron HCl (Zofran Odt) 4 mg PRN Q6HRS PRN PO NAUSEA; Start 01/31/22 at 20:15 Potassium Chloride (Klor-Con) 10 meq DAILY PO Last administered on 02/01/22at 07:49; Start 02/01/22 at 09:00 Tramadol HCl (Ultram) 50 mg PRN Q8HRS PRN PO MODERATE PAIN; Start 01/31/22 at 20:15 Trazodone HCl (Desyrel) 50 mg PRN QHS PRN PO INSOMNIA Last administered on 01/31/22 21:33; Start 01/31/22 at 20:15 Amiodarone HCl (Cordarone) 100 mg DAILY PO Last administered on 02/01/22at 07:48; Start 02/01/22 at 09:00 Calcium Acetate (Phoslo) 667 mg TIDWMEALS PO Last administered on 02/01/22 07:49; Start 02/01/22 at 08:00 Calcium Carbonate/ Glycine (Tums) 500 mg QHS PO Last administered on 01/31/22at 21:33; Start 01/31/22 at 21:00 Glycerin/ Hypromellose/ Polyethylene (Artificial Tears) 1 drop BID OU Last administered on 01/31/22at 21:00; Start 01/31/22 at 21:00 Hydrocortisone (Cortizone-10) 1 jarvis BID TP Last administered on 01/31/22at 21:36; Start 01/31/22 at 21:00 Insulin Human Lispro (HumaLOG) 4 units TIDWMEALS SQ Last administered on 02/01/22at 07:50; Start 02/01/22 at 08:00 Insulin Glargine (Lantus Syringe) 5 unit QHS SQ ; Start 01/31/22 at 21:00 Non-Formulary Medication (Melatonin ) 2 tab QHS PO ; Start 01/31/22 at 21:00; Status UNV Nystatin (Mycostatin) 1 jarvis PRN BID PRN TP REDNESS; Start 01/31/22 at 20:45 Quetiapine Fumarate (SEROquel) 50 mg BID PO Last administered on 02/01/22at 07:49; Start 01/31/22 at 21:00 Triamcinolone Acetonide (Kenalog 0.1%) 1 jarvis PRN BID PRN TP REDNESS; Start 01/31/22 at 20:45 Epoetin Cameron-epbx (RETACRIT for ESRD PTS) 10,000 unit MoWeFr@2100 SQ ; Start 02/02/22 at 21:00 Pantoprazole Sodium (Protonix) 40 mg DAILYAC PO ; Start 02/01/22 at 10:00 Active Scripts Active Ondansetron Odt (Ondansetron) 4 Mg Tab.rapdis 1 Tab PO PRN Q6-8HRS PRN Reported Lantus Solostar (Insulin Glargine,Hum.rec.anlog) 100 Unit/1 Ml Insuln.pen 5 Unit SQ QHS Amiodarone Hcl 100 Mg Tablet 1 Tab PO DAILY 30 Days Klor-Con 10 (Potassium Chloride) 10 Meq Tablet.er 10 Meq PO DAILY Metoprolol Succinate ( Xl ) (Metoprolol Succinate) 25 Mg Tab.er.24h 1 Tab PO DAILY Levothyroxine Sodium 175 Mcg Tablet 1 Tab PO DAILY Eliquis (Apixaban) 2.5 Mg Tablet 2.5 Mg PO BID Atorvastatin Calcium 20 Mg Tablet 20 Mg PO HS Thera Tears (Carboxymethylcellulose Sodium) 15 Ml Drops 1 Drop EACHEYE BID Acetaminophen 500 Mg Tablet 500 Mg PO PRN Q6HRS PRN Trazodone Hcl 50 Mg Tablet 50 Mg PO PRN QHS Tums (Calcium Carbonate) 300 Mg Tab.chew 500 Mg PO HS Tramadol Hcl 50 Mg Tablet 50 Mg PO Q8HRS PRN Melatonin 3 Mg Tablet 2 Tab PO QHS Hydrocortisone 59 Ml Lotion 1 Jarvis TP BID Colace (Docusate Sodium) 100 Mg Capsule 1 Cap PO PRN DAILY PRN Calcium Acetate 667 Mg Tablet 667 Mg PO TIDWMEALS Buspirone Hcl 5 Mg Tablet 1 Tab PO TID Seroquel (Quetiapine Fumarate) 50 Mg Tablet 50 Mg PO BID Nystatin-Triamcinolone Cream (Nystatin/Triamcin) 15 Gm Cream..g. 1 Jarvis TP PRN PRN Novolog Flexpen (Insulin Aspart) 100 Unit/1 Ml Insuln.pen 4 Unit SQ TIDWMEALS Vitamin D2 (Ergocalciferol (Vitamin D2)) 50,000 Unit Capsule 50,000 Unit PO WEEKLY Donepezil Hcl 10 Mg Tablet 10 Mg PO DAILY Isosorbide Mononitrate Er (Isosorbide Mononitrate) 30 Mg Tab.er.24h 1 Tab PO DAILY Allergies Allergies: Coded Allergies: amoxicillin (Verified Allergy, Intermediate, 01/20/22) clavulanic acid (Verified Allergy, Intermediate, 01/20/22) Physical Exam Lungs: Clear to auscultation Heart: Normal S1, Normal S2 Abdomen: Normal bowel sounds, No tenderness Vitals VITALS Vital Signs Date Time Temp Pulse Resp B/P (MAP) Pulse Ox O2 Delivery O2 Flow Rate FiO2 02/01/22 11:00 98.0 65 18 120/54 (76) 100 Room Air 98.0 Labs Labs Laboratory Tests Test 01/31/22 14:20 01/31/22 18:45 01/31/22 21:41 02/01/22 07:45 White Blood Count 4.3 x10^3/uL (4.0-11.0) 3.8 x10^3/uL (4.0-11.0) Red Blood Count 2.20 x10^6/uL (3.50-5.40) 2.57 x10^6/uL (3.50-5.40) Hemoglobin 6.8 g/dL (12.0-15.5) 8.1 g/dL (12.0-15.5) Hematocrit 21.2 % (36.0-47.0) 23.9 % (36.0-47.0) Mean Corpuscular Volume 96 fL (79-100) 93 fL (79-100) Mean Corpuscular Hemoglobin 31 pg (25-35) 32 pg (25-35) Mean Corpuscular Hemoglobin Concent 32 g/dL (31-37) 34 g/dL (31-37) Red Cell Distribution Width 16.9 % (11.5-14.5) 18.5 % (11.5-14.5) Platelet Count 281 x10^3/uL (140-400) 276 x10^3/uL (140-400) Neutrophils (%) (Auto) 68 % (31-73) 49 % (31-73) Lymphocytes (%) (Auto) 21 % (24-48) 35 % (24-48) Monocytes (%) (Auto) 7 % (0-9) 8 % (0-9) Eosinophils (%) (Auto) 4 % (0-3) 6 % (0-3) Basophils (%) (Auto) 0 % (0-3) 1 % (0-3) Neutrophils # (Auto) 2.9 x10^3/uL (1.8-7.7) 1.9 x10^3/uL (1.8-7.7) Lymphocytes # (Auto) 0.9 x10^3/uL (1.0-4.8) 1.3 x10^3/uL (1.0-4.8) Monocytes # (Auto) 0.3 x10^3/uL (0.0-1.1) 0.3 x10^3/uL (0.0-1.1) Eosinophils # (Auto) 0.2 x10^3/uL (0.0-0.7) 0.2 x10^3/uL (0.0-0.7) Basophils # (Auto) 0.0 x10^3/uL (0.0-0.2) 0.0 x10^3/uL (0.0-0.2) Prothrombin Time 13.9 SEC (11.7-14.0) Prothromb Time International Ratio 1.1 (0.8-1.1) Activated Partial Thromboplast Time 30 SEC (24-38) Sodium Level 138 mmol/L (136-145) 137 mmol/L (136-145) Potassium Level 3.2 mmol/L (3.5-5.1) 3.6 mmol/L (3.5-5.1) Chloride Level 101 mmol/L (98-107) 103 mmol/L (98-107) Carbon Dioxide Level 30 mmol/L (21-32) 28 mmol/L (21-32) Anion Gap 7 (6-14) 6 (6-14) Blood Urea Nitrogen 8 mg/dL (7-20) 21 mg/dL (7-20) Creatinine 3.0 mg/dL (0.6-1.0) 4.7 mg/dL (0.6-1.0) Estimated GFR (Cockcroft-Gault) 15.2 9.1 BUN/Creatinine Ratio 3 (6-20) Glucose Level 196 mg/dL (70-99) 266 mg/dL (70-99) Calcium Level 8.4 mg/dL (8.5-10.1) 7.8 mg/dL (8.5-10.1) Magnesium Level 1.9 mg/dL (1.8-2.4) Total Bilirubin 0.5 mg/dL (0.2-1.0) Aspartate Amino Transf (AST/SGOT) 20 U/L (15-37) Alanine Aminotransferase (ALT/SGPT) 15 U/L (14-59) Alkaline Phosphatase 118 U/L (46-116) Troponin I High Sensitivity 14 ng/L (4-50) 17 ng/L (4-50) 15 ng/L (4-50) HQ-Tad-A-Type Natriuretic Peptide 23142 pg/mL (0-449) Total Protein 6.8 g/dL (6.4-8.2) Albumin 2.6 g/dL (3.4-5.0) Albumin/Globulin Ratio 0.6 (1.0-1.7) Lipase 104 U/L (73-393) Glucose (Fingerstick) 192 mg/dL (70-99) Iron Level 54 ug/dL (50-170) Total Iron Binding Capacity 122 ug/dL (250-450) Iron Saturation 44 % (15-34) Laboratory Tests Test 01/31/22 14:20 01/31/22 18:45 01/31/22 21:41 02/01/22 07:45 White Blood Count 4.3 x10^3/uL (4.0-11.0) 3.8 x10^3/uL (4.0-11.0) Red Blood Count 2.20 x10^6/uL (3.50-5.40) 2.57 x10^6/uL (3.50-5.40) Hemoglobin 6.8 g/dL (12.0-15.5) 8.1 g/dL (12.0-15.5) Hematocrit 21.2 % (36.0-47.0) 23.9 % (36.0-47.0) Mean Corpuscular Volume 96 fL (79-100) 93 fL (79-100) Mean Corpuscular Hemoglobin 31 pg (25-35) 32 pg (25-35) Mean Corpuscular Hemoglobin Concent 32 g/dL (31-37) 34 g/dL (31-37) Red Cell Distribution Width 16.9 % (11.5-14.5) 18.5 % (11.5-14.5) Platelet Count 281 x10^3/uL (140-400) 276 x10^3/uL (140-400) Neutrophils (%) (Auto) 68 % (31-73) 49 % (31-73) Lymphocytes (%) (Auto) 21 % (24-48) 35 % (24-48) Monocytes (%) (Auto) 7 % (0-9) 8 % (0-9) Eosinophils (%) (Auto) 4 % (0-3) 6 % (0-3) Basophils (%) (Auto) 0 % (0-3) 1 % (0-3) Neutrophils # (Auto) 2.9 x10^3/uL (1.8-7.7) 1.9 x10^3/uL (1.8-7.7) Lymphocytes # (Auto) 0.9 x10^3/uL (1.0-4.8) 1.3 x10^3/uL (1.0-4.8) Monocytes # (Auto) 0.3 x10^3/uL (0.0-1.1) 0.3 x10^3/uL (0.0-1.1) Eosinophils # (Auto) 0.2 x10^3/uL (0.0-0.7) 0.2 x10^3/uL (0.0-0.7) Basophils # (Auto) 0.0 x10^3/uL (0.0-0.2) 0.0 x10^3/uL (0.0-0.2) Prothrombin Time 13.9 SEC (11.7-14.0) Prothromb Time International Ratio 1.1 (0.8-1.1) Activated Partial Thromboplast Time 30 SEC (24-38) Sodium Level 138 mmol/L (136-145) 137 mmol/L (136-145) Potassium Level 3.2 mmol/L (3.5-5.1) 3.6 mmol/L (3.5-5.1) Chloride Level 101 mmol/L (98-107) 103 mmol/L (98-107) Carbon Dioxide Level 30 mmol/L (21-32) 28 mmol/L (21-32) Anion Gap 7 (6-14) 6 (6-14) Blood Urea Nitrogen 8 mg/dL (7-20) 21 mg/dL (7-20) Creatinine 3.0 mg/dL (0.6-1.0) 4.7 mg/dL (0.6-1.0) Estimated GFR (Cockcroft-Gault) 15.2 9.1 BUN/Creatinine Ratio 3 (6-20) Glucose Level 196 mg/dL (70-99) 266 mg/dL (70-99) Calcium Level 8.4 mg/dL (8.5-10.1) 7.8 mg/dL (8.5-10.1) Magnesium Level 1.9 mg/dL (1.8-2.4) Total Bilirubin 0.5 mg/dL (0.2-1.0) Aspartate Amino Transf (AST/SGOT) 20 U/L (15-37) Alanine Aminotransferase (ALT/SGPT) 15 U/L (14-59) Alkaline Phosphatase 118 U/L (46-116) Troponin I High Sensitivity 14 ng/L (4-50) 17 ng/L (4-50) 15 ng/L (4-50) YL-Zql-Z-Type Natriuretic Peptide 66700 pg/mL (0-449) Total Protein 6.8 g/dL (6.4-8.2) Albumin 2.6 g/dL (3.4-5.0) Albumin/Globulin Ratio 0.6 (1.0-1.7) Lipase 104 U/L (73-393) Glucose (Fingerstick) 192 mg/dL (70-99) Iron Level 54 ug/dL (50-170) Total Iron Binding Capacity 122 ug/dL (250-450) Iron Saturation 44 % (15-34) Assessment/Plan Assessment/Plan Chronic illness anemia- with ESRD, most likely multifactorial in etiology. Plan iron and retic studies no endosocpy recommended with dementia and ESRD DALJIT MCCARTNEY MD Feb 01, 2022 11:45
[2022-02-01] MEDS: PANTOPRAZOLE 40 MG TABLET.DR. PO SCH (12:43)
--- NOTE | 2022-02-01 13:25 | PDOC2 ---
CONSULT Date of Consult Date of Consult DATE: 02/01/22 TIME: 13:19 Reason for Consult Reason for Consult: Chest pain Referring Physician Referring Physician: Dr. Reid Identification/Chief Complaint Chief Complaint Chest pain Source Source: Chart review, Patient History of Present Illness Reason for Visit: The patient is a 77-year-old female who reported episodes of chest pain while in dialysis yesterday. The patient's initial troponin was normal. Her EKG showed a sinus rhythm with no acute ST-T wave changes. Her hemoglobin however was low with an H&H of 6.8 and 21.2. Patient was transfused. Patient is feeling better overnight. She has ruled out for myocardial infarction with normal troponins x3. She is having no chest pain. On 08/05/2020 she had a low risk Lexiscan MPI nuclear stress test showing no evidence of ischemia, infarction and she had a normal ejection fraction of greater than 70%. Patient has been seen and ev aluated by the renal and GI services. Past Medical History Cardiovascular: AFIB, CHF, HTN, Hyperlipidemia, Pulmonary hypertension, Other Pulmonary: No pertinent hx CENTRAL NERVOUS SYSTEM: Dementia, Periperal neuropathy GI: Diverticulosis, GERD, Peptic Ulcer disease Heme/Onc: Anemia NOS Hepatobiliary: No pertinent hx Psych: Anxiety, Bipolar, Depression Musculoskeletal: Osteoarthritis Rheumatologic: No pertinent hx Infectious disease: No pertinent hx Renal/: Chronic renal failure Endocrine: Diabetes, Hypothyroidism, Hyperparathyroidism Past Surgical History Past Surgical History: Hysterectomy Family History Family History: Alzheimer's Disease Social History No ALCOHOL: none Drugs: None Lives: with Family Current Problem List Problem List Problems Medical Problems: (1) Chest pain Status: Acute (2) ESRD (end stage renal disease) Status: Acute (3) Low hemoglobin Status: Acute Current Medications Current Medications Current Medications Acetaminophen (Tylenol) 500 mg PRN Q6HRS PRN PO MILD PAIN 1-3; Start 01/31/22 at 20:15 Apixaban (Eliquis) 2.5 mg BID PO Last administered on 02/01/22at 07:48; Start 01/31/22 at 21:00 Atorvastatin Calcium (Lipitor) 20 mg HS PO Last administered on 01/31/22at 21:36; Start 01/31/22 at 21:00 Buspirone HCl (Buspar) 5 mg TID PO Last administered on 02/01/22at 07:49; Start 01/31/22 at 21:00 Docusate Sodium (Colace) 100 mg PRN DAILY PRN PO CONSTIPATION; Start 01/31/22 at 20:15 Donepezil HCl (Aricept) 10 mg DAILY PO Last administered on 02/01/22at 07:48; Start 02/01/22 at 09:00 Ergocalciferol (Vitamin D2) 50,000 unit Th@0900 PO ; Start 02/05/22 at 09:00 Isosorbide Mononitrate (Imdur) 30 mg DAILY PO Last administered on 02/01/22at 07:49; Start 02/01/22 at 09:00 Levothyroxine Sodium (Synthroid) 175 mcg DAILY06 PO Last administered on 02/01/22at 07:48; Start 02/01/22 at 06:00 Metoprolol Succinate (Toprol Xl) 25 mg DAILY PO ; Start 02/01/22 at 09:00 Ondansetron HCl (Zofran Odt) 4 mg PRN Q6HRS PRN PO NAUSEA; Start 01/31/22 at 20:15 Potassium Chloride (Klor-Con) 10 meq DAILY PO Last administered on 02/01/22at 07:49; Start 02/01/22 at 09:00 Tramadol HCl (Ultram) 50 mg PRN Q8HRS PRN PO MODERATE PAIN; Start 01/31/22 at 20:15 Trazodone HCl (Desyrel) 50 mg PRN QHS PRN PO INSOMNIA Last administered on 01/31/22at 21:33; Start 01/31/22 at 20:15 Amiodarone HCl (Cordarone) 100 mg DAILY PO Last administered on 02/01/22at 07:48; Start 02/01/22 at 09:00 Calcium Acetate (Phoslo) 667 mg TIDWMEALS PO Last administered on 02/01/22at 12:43; Start 02/01/22 at 08:00 Calcium Carbonate/ Glycine (Tums) 500 mg QHS PO Last administered on 01/31/22at 21:33; Start 01/31/22 at 21:00 Glycerin/ Hypromellose/ Polyethylene (Artificial Tears) 1 drop BID OU Last administered on 01/31/22at 21:00; Start 01/31/22 at 21:00 Hydrocortisone (Cortizone-10) 1 jarvis BID TP Last administered on 01/31/22at 21:36; Start 01/31/22 at 21:00 Insulin Human Lispro (HumaLOG) 4 units TIDWMEALS SQ Last administered on 02/01/22at 12:44; Start 02/01/22 at 08:00 Insulin Glargine (Lantus Syringe) 5 unit QHS SQ ; Start 01/31/22 at 21:00 Non-Formulary Medication (Melatonin ) 2 tab QHS PO ; Start 01/31/22 at 21:00; Status UNV Nystatin (Mycostatin) 1 jarvis PRN BID PRN TP REDNESS; Start 01/31/22 at 20:45 Quetiapine Fumarate (SEROquel) 50 mg BID PO Last administered on 02/01/22at 07:49; Start 01/31/22 at 21:00 Triamcinolone Acetonide (Kenalog 0.1%) 1 jarvis PRN BID PRN TP REDNESS; Start 01/31/22 at 20:45 Epoetin Cameron-epbx (RETACRIT for ESRD PTS) 10,000 unit MoWeFr@2100 SQ ; Start 02/02/22 at 21:00 Pantoprazole Sodium (Protonix) 40 mg DAILYAC PO Last administered on 02/01/22at 12:43; Start 02/01/22 at 10:00 Active Scripts Active Ondansetron Odt (Ondansetron) 4 Mg Tab.rapdis 1 Tab PO PRN Q6-8HRS PRN Reported Lantus Solostar (Insulin Glargine,Hum.rec.anlog) 100 Unit/1 Ml Insuln.pen 5 Unit SQ QHS Amiodarone Hcl 100 Mg Tablet 1 Tab PO DAILY 30 Days Klor-Con 10 (Potassium Chloride) 10 Meq Tablet.er 10 Meq PO DAILY Metoprolol Succinate ( Xl ) (Metoprolol Succinate) 25 Mg Tab.er.24h 1 Tab PO DAILY Levothyroxine Sodium 175 Mcg Tablet 1 Tab PO DAILY Eliquis (Apixaban) 2.5 Mg Tablet 2.5 Mg PO BID Atorvastatin Calcium 20 Mg Tablet 20 Mg PO HS Thera Tears (Carboxymethylcellulose Sodium) 15 Ml Drops 1 Drop EACHEYE BID Acetaminophen 500 Mg Tablet 500 Mg PO PRN Q6HRS PRN Trazodone Hcl 50 Mg Tablet 50 Mg PO PRN QHS Tums (Calcium Carbonate) 300 Mg Tab.chew 500 Mg PO HS Tramadol Hcl 50 Mg Tablet 50 Mg PO Q8HRS PRN Melatonin 3 Mg Tablet 2 Tab PO QHS Hydrocortisone 59 Ml Lotion 1 Jarvis TP BID Colace (Docusate Sodium) 100 Mg Capsule 1 Cap PO PRN DAILY PRN Calcium Acetate 667 Mg Tablet 667 Mg PO TIDWMEALS Buspirone Hcl 5 Mg Tablet 1 Tab PO TID Seroquel (Quetiapine Fumarate) 50 Mg Tablet 50 Mg PO BID Nystatin-Triamcinolone Cream (Nystatin/Triamcin) 15 Gm Cream..g. 1 Jarvis TP PRN PRN Novolog Flexpen (Insulin Aspart) 100 Unit/1 Ml Insuln.pen 4 Unit SQ TIDWMEALS Vitamin D2 (Ergocalciferol (Vitamin D2)) 50,000 Unit Capsule 50,000 Unit PO WEEKLY Donepezil Hcl 10 Mg Tablet 10 Mg PO DAILY Isosorbide Mononitrate Er (Isosorbide Mononitrate) 30 Mg Tab.er.24h 1 Tab PO DAILY Allergies Allergies: Coded Allergies: amoxicillin (Verified Allergy, Intermediate, 01/20/22) clavulanic acid (Verified Allergy, Intermediate, 01/20/22) ROS General: YES: Fatigue Respiratory: YES: SOB with excertion Cardiovascular: yes Chest Pain Physical Exam General: No acute distress HEENT: Atraumatic Lungs: Other (Mildly decreased breath sounds) Heart: Regular rate Abdomen: Normal bowel sounds Vitals VITALS Vital Signs Date Time Temp Pulse Resp B/P (MAP) Pulse Ox O2 Delivery O2 Flow Rate FiO2 02/01/22 11:00 98.0 65 18 120/54 (76) 100 Room Air 98.0 Labs Labs Laboratory Tests Test 01/31/22 14:20 01/31/22 18:45 01/31/22 21:41 02/01/22 07:45 White Blood Count 4.3 x10^3/uL (4.0-11.0) 3.8 x10^3/uL (4.0-11.0) Red Blood Count 2.20 x10^6/uL (3.50-5.40) 2.64 x10^6/uL (3.50-5.70) Hemoglobin 6.8 g/dL (12.0-15.5) 8.1 g/dL (12.0-15.5) Hematocrit 21.2 % (36.0-47.0) 23.9 % (36.0-47.0) Mean Corpuscular Volume 96 fL (79-100) 93 fL (79-100) Mean Corpuscular Hemoglobin 31 pg (25-35) 32 pg (25-35) Mean Corpuscular Hemoglobin Concent 32 g/dL (31-37) 34 g/dL (31-37) Red Cell Distribution Width 16.9 % (11.5-14.5) 18.5 % (11.5-14.5) Platelet Count 281 x10^3/uL (140-400) 276 x10^3/uL (140-400) Neutrophils (%) (Auto) 68 % (31-73) 49 % (31-73) Lymphocytes (%) (Auto) 21 % (24-48) 35 % (24-48) Monocytes (%) (Auto) 7 % (0-9) 8 % (0-9) Eosinophils (%) (Auto) 4 % (0-3) 6 % (0-3) Basophils (%) (Auto) 0 % (0-3) 1 % (0-3) Neutrophils # (Auto) 2.9 x10^3/uL (1.8-7.7) 1.9 x10^3/uL (1.8-7.7) Lymphocytes # (Auto) 0.9 x10^3/uL (1.0-4.8) 1.3 x10^3/uL (1.0-4.8) Monocytes # (Auto) 0.3 x10^3/uL (0.0-1.1) 0.3 x10^3/uL (0.0-1.1) Eosinophils # (Auto) 0.2 x10^3/uL (0.0-0.7) 0.2 x10^3/uL (0.0-0.7) Basophils # (Auto) 0.0 x10^3/uL (0.0-0.2) 0.0 x10^3/uL (0.0-0.2) Prothrombin Time 13.9 SEC (11.7-14.0) Prothromb Time International Ratio 1.1 (0.8-1.1) Activated Partial Thromboplast Time 30 SEC (24-38) Sodium Level 138 mmol/L (136-145) 137 mmol/L (136-145) Potassium Level 3.2 mmol/L (3.5-5.1) 3.6 mmol/L (3.5-5.1) Chloride Level 101 mmol/L (98-107) 103 mmol/L (98-107) Carbon Dioxide Level 30 mmol/L (21-32) 28 mmol/L (21-32) Anion Gap 7 (6-14) 6 (6-14) Blood Urea Nitrogen 8 mg/dL (7-20) 21 mg/dL (7-20) Creatinine 3.0 mg/dL (0.6-1.0) 4.7 mg/dL (0.6-1.0) Estimated GFR (Cockcroft-Gault) 15.2 9.1 BUN/Creatinine Ratio 3 (6-20) Glucose Level 196 mg/dL (70-99) 266 mg/dL (70-99) Calcium Level 8.4 mg/dL (8.5-10.1) 7.8 mg/dL (8.5-10.1) Magnesium Level 1.9 mg/dL (1.8-2.4) Total Bilirubin 0.5 mg/dL (0.2-1.0) Aspartate Amino Transf (AST/SGOT) 20 U/L (15-37) Alanine Aminotransferase (ALT/SGPT) 15 U/L (14-59) Alkaline Phosphatase 118 U/L (46-116) Troponin I High Sensitivity 14 ng/L (4-50) 17 ng/L (4-50) 15 ng/L (4-50) JK-Nsg-Y-Type Natriuretic Peptide 33665 pg/mL (0-449) Total Protein 6.8 g/dL (6.4-8.2) Albumin 2.6 g/dL (3.4-5.0) Albumin/Globulin Ratio 0.6 (1.0-1.7) Lipase 104 U/L (73-393) Glucose (Fingerstick) 192 mg/dL (70-99) Absolute Reticulocyte Count 0.077 x10^6/uL (0.020-0.120) Percent Reticulocyte Count 2.9 % (0.5-2.3) Immature Reticulocyte Fraction 0.65 (0.20-0.60) Iron Level 54 ug/dL (50-170) Total Iron Binding Capacity 122 ug/dL (250-450) Iron Saturation 44 % (15-34) Laboratory Tests Test 01/31/22 14:20 01/31/22 18:45 01/31/22 21:41 02/01/22 07:45 White Blood Count 4.3 x10^3/uL (4.0-11.0) 3.8 x10^3/uL (4.0-11.0) Red Blood Count 2.20 x10^6/uL (3.50-5.40) 2.64 x10^6/uL (3.50-5.70) Hemoglobin 6.8 g/dL (12.0-15.5) 8.1 g/dL (12.0-15.5) Hematocrit 21.2 % (36.0-47.0) 23.9 % (36.0-47.0) Mean Corpuscular Volume 96 fL (79-100) 93 fL (79-100) Mean Corpuscular Hemoglobin 31 pg (25-35) 32 pg (25-35) Mean Corpuscular Hemoglobin Concent 32 g/dL (31-37) 34 g/dL (31-37) Red Cell Distribution Width 16.9 % (11.5-14.5) 18.5 % (11.5-14.5) Platelet Count 281 x10^3/uL (140-400) 276 x10^3/uL (140-400) Neutrophils (%) (Auto) 68 % (31-73) 49 % (31-73) Lymphocytes (%) (Auto) 21 % (24-48) 35 % (24-48) Monocytes (%) (Auto) 7 % (0-9) 8 % (0-9) Eosinophils (%) (Auto) 4 % (0-3) 6 % (0-3) Basophils (%) (Auto) 0 % (0-3) 1 % (0-3) Neutrophils # (Auto) 2.9 x10^3/uL (1.8-7.7) 1.9 x10^3/uL (1.8-7.7) Lymphocytes # (Auto) 0.9 x10^3/uL (1.0-4.8) 1.3 x10^3/uL (1.0-4.8) Monocytes # (Auto) 0.3 x10^3/uL (0.0-1.1) 0.3 x10^3/uL (0.0-1.1) Eosinophils # (Auto) 0.2 x10^3/uL (0.0-0.7) 0.2 x10^3/uL (0.0-0.7) Basophils # (Auto) 0.0 x10^3/uL (0.0-0.2) 0.0 x10^3/uL (0.0-0.2) Prothrombin Time 13.9 SEC (11.7-14.0) Prothromb Time International Ratio 1.1 (0.8-1.1) Activated Partial Thromboplast Time 30 SEC (24-38) Sodium Level 138 mmol/L (136-145) 137 mmol/L (136-145) Potassium Level 3.2 mmol/L (3.5-5.1) 3.6 mmol/L (3.5-5.1) Chloride Level 101 mmol/L (98-107) 103 mmol/L (98-107) Carbon Dioxide Level 30 mmol/L (21-32) 28 mmol/L (21-32) Anion Gap 7 (6-14) 6 (6-14) Blood Urea Nitrogen 8 mg/dL (7-20) 21 mg/dL (7-20) Creatinine 3.0 mg/dL (0.6-1.0) 4.7 mg/dL (0.6-1.0) Estimated GFR (Cockcroft-Gault) 15.2 9.1 BUN/Creatinine Ratio 3 (6-20) Glucose Level 196 mg/dL (70-99) 266 mg/dL (70-99) Calcium Level 8.4 mg/dL (8.5-10.1) 7.8 mg/dL (8.5-10.1) Magnesium Level 1.9 mg/dL (1.8-2.4) Total Bilirubin 0.5 mg/dL (0.2-1.0) Aspartate Amino Transf (AST/SGOT) 20 U/L (15-37) Alanine Aminotransferase (ALT/SGPT) 15 U/L (14-59) Alkaline Phosphatase 118 U/L (46-116) Troponin I High Sensitivity 14 ng/L (4-50) 17 ng/L (4-50) 15 ng/L (4-50) CM-Muy-N-Type Natriuretic Peptide 69879 pg/mL (0-449) Total Protein 6.8 g/dL (6.4-8.2) Albumin 2.6 g/dL (3.4-5.0) Albumin/Globulin Ratio 0.6 (1.0-1.7) Lipase 104 U/L (73-393) Glucose (Fingerstick) 192 mg/dL (70-99) Absolute Reticulocyte Count 0.077 x10^6/uL (0.020-0.120) Percent Reticulocyte Count 2.9 % (0.5-2.3) Immature Reticulocyte Fraction 0.65 (0.20-0.60) Iron Level 54 ug/dL (50-170) Total Iron Binding Capacity 122 ug/dL (250-450) Iron Saturation 44 % (15-34) Images Images Chest x-ray as above. Assessment/Plan Assessment/Plan 1. Chest pain. Pain has resolved. No EKG evidence of acute ischemia. Troponin normal x3. Lexiscan MPI stress test on 08/05/2020 showed no evidence of ischemia or infarct with a normal ejection fraction. We will continue present treatments and monitoring. 2. Anemia. Patient transfused overnight. 3. History of heart failure. Patient appears stable. We will continue present treatment. 4. Hypertension. Again continue present medication. 5. Hyperlipidemia. Will check morning lab. 6. Chronic kidney disease on dialysis. Patient has been evaluated by the renal service. 7. Pulmonary hypertension. 8. Diabetes mellitus. As per the primary service. Thank you for allowing us to participate in the care of your patient. SARAHI FALLON MD Feb 01, 2022 13:25
[2022-02-01] MEDS: CALCIUM CARBONATE 500 MG TAB.CHEW PO SCH (20:35)
[2022-02-01] MEDS: ATORVASTATIN CALCIUM 20 MG TABLET PO SCH (20:35)
[2022-02-01] MEDS: INSULIN GLARGINE SYRINGE. SQ SCH (20:37)
[2022-02-02 03:00] VITALS: BP 117/42
[2022-02-02] MEDS: LEVOTHYROXINE 175 MCG TABLET PO SCH (06:00)
[2022-02-02 07:13] VITALS: BP 112/42
[2022-02-02] MEDS: PANTOPRAZOLE 40 MG TABLET.DR. PO SCH (07:30)
[2022-02-02] MEDS: CALCIUM ACETATE 667 MG CAPSULE PO SCH ×3 (08:00→17:00)
[2022-02-02] MEDS: INSULIN LISPRO 300 UNITS/3 ML VIAL. SQ SCH ×3 (08:00→17:00)
[2022-02-02] MEDS: POLYVINYL ALCOHOL 1.4% OPHTH SOLUTION 15ML BOTTLE. OU SCH ×2 (09:00→22:04)
[2022-02-02] MEDS: DONEPEZIL HCL 10 MG TABLET. PO SCH (09:00)
[2022-02-02] MEDS: QUEtiapine 25 MG TABLET. PO SCH ×2 (09:00→21:30)
[2022-02-02] MEDS: HYDROCORTISONE 1% LOTION BOTTLE. TP SCH ×2 (09:00→22:06)
[2022-02-02] MEDS: AMIODARONE HCL 200 MG TABLET. PO SCH (09:00)
[2022-02-02] MEDS: busPIRone 5 MG TABLET. PO SCH ×3 (09:00→21:30)
[2022-02-02] MEDS: APIXABAN 2.5 MG TABLET. PO SCH (09:00)
[2022-02-02] MEDS: ISOSORBIDE MONONITRATE ER 30 MG TAB.ER.24H PO SCH (09:00)
[2022-02-02] MEDS: METOPROLOL SUCC 24HR ER 25 MG TAB.ER.24H. PO SCH (09:00)
[2022-02-02] MEDS: POTASSIUM CHLORIDE 10 MEQ TABLET.ER. PO SCH (09:00)
--- NOTE | 2022-02-02 09:25 | PDOC ---
CARDIO Progress Notes Date and Time Date of Service 02/02/22 Time of Evaluation 0920 Subjective Subjective: No Chest Pain, No shortness of breath, No Palpitations Vitals Vitals Vital Signs Date Time Temp Pulse Resp B/P (MAP) Pulse Ox O2 Delivery O2 Flow Rate FiO2 02/02/22 08:38 Room Air 02/02/22 07:13 97.9 57 16 112/42 (65) 97 97.9 Weight Weight [ ] Input and Output Intake and Output Intake and Output 02/02/22 07:00 Intake Total 200 ml Output Total 0 ml Balance 200 ml Intake Oral 200 ml Output Urine Total 0 ml Laboratory Labs Laboratory Tests Test 02/01/22 17:20 Glucose (Fingerstick) 123 mg/dL (70-99) Physical Exam HEENT: Neck Supple W Full Motion Chest: Symmetric LUNGS: Clear to Auscultation Heart: RRR Abdomen: Soft N/T Extremities: No Edema Neurology: alert, follow commands Assessment Assessment 1. Chest pain, atypical. AMI ruled out. No EKG evidence of acute ischemia. Lexiscan MPI stress test on 08/05/2020 showed no evidence of ischemia or infarct with a normal ejection fraction. 2. Anemia of chronic disease; s/p transfusion 3. Chronic diastolic CHF; compensated 4. H/o CMP; most recent echo 02/02 shows LV recovery with an EF of 60-65% 5. PAFIB: maintaining SR with amiodarone 6. End-stage renal disease on HD 7. HTN: controlled 8. Hyperlipidemia 9. Diabetes, II 10. Moderate 11. Hx of PUD/high risk for falls 12. Dementia Recommendations Continue amiodarone for rhythm maintenance Metoprolol for rate control Hold Eliquis with anemia requiring transfusion Secondary prevention measures. Fluid off loading per HD Supportive care Consider for outpatient referral for LAAO 7. Pulmonary hypertension. 8. Diabetes mellitus. As per the primary service. Justicifation of Admission Dx: Justifications for Admission: Justification of Admission Dx: Yes Acute Renal Failure: Serum Cr > 4mg/dL YOHAN DEE APRN Feb 02, 2022 09:25
--- NOTE | 2022-02-02 10:03 | NUR ---
SS following for discharge planning. SS reviewed pt chart and discussed with pt RN. Pt is [facility] resident from [place], ; fax [phone], and is currently on room air. Pt has outpatient hemodialysis at [facility], ; fax [phone], Wednesday, , and Wednesday. Cardiology, GI, and Nephrology following. Pt is able to return to facility when medically ready for discharge. SS will continue to follow for discharge planning.
[2022-02-02 10:17] VITALS: BP 119/52
--- NOTE | 2022-02-02 10:33 | PDOC ---
DATE OF SERVICE DATE: 02/02/22 TIME: 10:33 SUBJECTIVE ROS stable OBJECTIVE Vital Signs Vital Signs Date Time Temp Pulse Resp B/P (MAP) Pulse Ox O2 Delivery O2 Flow Rate FiO2 02/02/22 10:17 98.6 70 18 119/52 (74) 100 Room Air 98.6 I & 0 Intake and Output 02/02/22 07:00 Intake Total 200 ml Output Total 0 ml Balance 200 ml Intake Oral 200 ml Output Urine Total 0 ml PHYSICAL EXAM Physical Exam General NAD HEEN OM moist Neck Supple Lungs CTA B, Non labored CV RRR Abd Soft, NT , BS + Ext No LE edema No meza Neuro Grossly Normal Derm No Rash DIAGNOSIS/ASSESSMENT Assessment & Plan ESRD on HD at [facility] under Dr Metzger TTS ,No indication for HD today Anemia- Hgb POA <7 , S/P PRBC. Similar in the past as well Tsats at goal. Defer to PCP /GI Hx of Bipolar/Attention seeking behavior per Dr. Metzger DM- Uncontrolled. Primary managing HTN- BP stable Hx of COVID 19 positive per NH report Discharge per primary COMMENT/RELEVANT DATA Meds Current Medications Medications (Trade) Dose Ordered Sig/Angeles Start Time Stop Time Status Last Admin Dose Admin Acetaminophen (Tylenol) 500 mg PRN Q6HRS PRN 01/31/22 20:15 Amiodarone HCl (Cordarone) 100 mg DAILY 02/01/22 09:00 02/01/22 07:48 100 MG Apixaban (Eliquis) 2.5 mg BID 01/31/22 21:00 02/01/22 20:35 2.5 MG Atorvastatin Calcium (Lipitor) 20 mg HS 01/31/22 21:00 02/01/22 20:35 20 MG Buspirone HCl (Buspar) 5 mg TID 01/31/22 21:00 02/01/22 20:35 5 MG Calcium Acetate (Phoslo) 667 mg TIDWMEALS 02/01/22 08:00 02/01/22 17:26 667 MG Calcium Carbonate/ Glycine (Tums) 500 mg QHS 01/31/22 21:00 02/01/22 20:35 500 MG Docusate Sodium (Colace) 100 mg PRN DAILY PRN 01/31/22 20:15 Donepezil HCl (Aricept) 10 mg DAILY 02/01/22 09:00 02/01/22 07:48 10 MG Epoetin Cameron-epbx (RETACRIT for ESRD PTS) 10,000 unit MoWeFr@2100 02/02/22 21:00 Ergocalciferol (Vitamin D2) 50,000 unit Th@0900 02/05/22 09:00 Glycerin/ Hypromellose/ Polyethylene (Artificial Tears) 1 drop BID 01/31/22 21:00 02/01/22 20:35 1 DROP Hydrocortisone (Cortizone-10) 1 alex BID 01/31/22 21:00 02/01/22 20:36 1 ALEX Insulin Glargine (Lantus Syringe) 5 unit QHS 01/31/22 21:00 02/01/22 20:37 5 UNIT Insulin Human Lispro (HumaLOG) 4 units TIDWMEALS 02/01/22 08:00 02/01/22 12:44 4 UNITS Isosorbide Mononitrate (Imdur) 30 mg DAILY 02/01/22 09:00 02/01/22 07:49 30 MG Levothyroxine Sodium (Synthroid) 175 mcg DAILY06 02/01/22 06:00 02/02/22 06:00 175 MCG Metoprolol Succinate (Toprol Xl) 25 mg DAILY 02/01/22 09:00 Non-Formulary Medication (Melatonin ) 2 tab QHS 01/31/22 21:00 UNV Nystatin (Mycostatin) 1 alex PRN BID PRN 01/31/22 20:45 Ondansetron HCl (Zofran Odt) 4 mg PRN Q6HRS PRN 01/31/22 20:15 Pantoprazole Sodium (Protonix) 40 mg DAILYAC 02/01/22 10:00 02/01/22 12:43 40 MG Potassium Chloride (Klor-Con) 10 meq DAILY 02/01/22 09:00 02/01/22 07:49 10 MEQ Quetiapine Fumarate (SEROquel) 50 mg BID 01/31/22 21:00 02/01/22 20:35 50 MG Tramadol HCl (Ultram) 50 mg PRN Q8HRS PRN 01/31/22 20:15 Trazodone HCl (Desyrel) 50 mg PRN QHS PRN 01/31/22 20:15 01/31/22 21:33 50 MG Triamcinolone Acetonide (Kenalog 0.1%) 1 alex PRN BID PRN 01/31/22 20:45 Lab Laboratory Tests Test 02/01/22 17:20 Glucose (Fingerstick) 123 mg/dL (70-99) Results All relevant outside records, renal labs, imaging studies, telemetry/EKG's were reviewed. Justicifation of Admission Dx: Justifications for Admission: Justification of Admission Dx: Yes Acute Renal Failure: Serum Cr > 4mg/dL JUAN CARLOS SONI MD Feb 02, 2022 10:33
--- NOTE | 2022-02-02 11:37 | PDOC ---
Date of Service: DATE: 02/02/22 TIME: 11:23 Subjective: Subjective: Wants her apple juice opened. Objective: Objective: From encounter in 2016: EGD and colonoscopy in 07/2017: reflux, antral erythema, GAVE, and diverticulosis. Path was negative for H. pylori, random small bowel biopsies noted mild inflammation w/ normal villous architecture. Was advised to continue PPI and iron supplements. H/o PUD in 2014. Bone marrow biopsy 2016: FINAL DIAGNOSIS: Peripheral smear: - Normocytic normochromic anemia, moderate, status-post transfusion, with mild poikilocytosis (red cell fragments). - Thrombocytopenia, mild. Bone marrow, aspirate smears, clot section, and core biopsy: - Variable normocellular to mildly hypercellular marrow showing trilineage hematopoiesis, erythroid hyperplasia, no significant dyspoiesis, adequate megakaryocytes, and adequate to mildly increased iron stores. See comment. COMMENT: The peripheral smear shows a moderate normocytic normochromic anemia, status- post transfusion, with red cell fragments, and mild thrombocytopenia. The bone marrow varies from normocellular to mildly hypercellular and shows trilineage hematopoiesis, erythroid hyperplasia, no significant dyspoiesis, adequate megakaryocytes, and adequate to mildly increased reticuloendothelial iron stores. 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 I cannot absolutely exclude the possibility of a myelodysplastic syndrome, although the morphologic findings do not meet diagnostic criteria for myelodysplastic syndrome. Correlate with cytogenetic findings and other clinical and laboratory findings. No GI concerns per nursing though family wants to know where the anemia came from. Nurse mentions very Native, also confusion w/ h/o Alzheimer's. Vital Signs: Vital Signs Date Time Temp Pulse Resp B/P (MAP) Pulse Ox O2 Delivery O2 Flow Rate FiO2 02/02/22 10:17 98.6 70 18 119/52 (74) 100 Room Air 98.6 Labs: Laboratory Tests Test 02/01/22 17:20 02/02/22 11:16 Glucose (Fingerstick) 123 mg/dL 239 mg/dL PE: GEN: NAD - eating breakfast LUNGS: CTAB HEART: RRR ABD: S/ND/NT NEURO/PSYCH: A & O 3 A/P: Chest pain - resolved Chronic anemia - past workup as above includes 'scopes and bone marrow biopsy - s/p transfusion (now and in past) - not iron deficient (drawn after transfusion - deficient in past), B12 and retic ok H/o A Fib, anticoagulated w/ Eliquis ESRD on HD Dementia, Native -- Anemia multi-factorial w/ ESRD and anti-coagulation. Conservative approach recommended from GI standpoint. 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 Justicifation of Admission Dx: Justifications for Admission: Justification of Admission Dx: Yes Acute Renal Failure: Serum Cr > 4mg/dL TANG SERRA Feb 02, 2022 11:36
[2022-02-02 15:00] VITALS: BP 124/54
--- NOTE | 2022-02-02 16:09 | PN ---
DATE: 02/02/2022 DAILY PROGRESS NOTE LOCATION: She is in room 650. SUBJECTIVE: This 77-year-old female admitted with chest pain at dialysis. Workup to date is negative with cardiac etiology. She was also found to be anemic enough to require transfusion and I have asked GI to see her for evaluation of the same. Iron levels did come back as normal, however. The patient remains hard of hearing and really any kind of interaction to get a story out of her is almost impossible. OBJECTIVE: VITAL SIGNS: Stable. She is afebrile. GENERAL: She is awake, alert. Sugars are decent. CHEST: Clear. HEART: Regular. ABDOMEN: Benign. ASSESSMENT: 1. Chest pain. 2. Symptomatic anemia. 3. Diabetes. 4. End-stage renal disease. PLAN: Continue PPI. Await GI and Cardiology lead as far as further disposition. KARAN/PIOTR/[facility] DR: KARAN/arlette TID: [id number]
[2022-02-02 19:14] VITALS: BP 130/58
[2022-02-02] MEDS ORDERED: EPOETIN ALFA-EPBX for ESRD 20,000 UNIT/ML VIAL. SQ SCH (21:00)
[2022-02-02] MEDS: CALCIUM CARBONATE 500 MG TAB.CHEW PO SCH (21:30)
[2022-02-02] MEDS: ATORVASTATIN CALCIUM 20 MG TABLET PO SCH (21:30)
[2022-02-02] MEDS: INSULIN GLARGINE SYRINGE. SQ SCH (21:40)
[2022-02-02] MEDS: traZODone 50 MG TABLET. PO PRN (21:42)
[2022-02-02 22:53] VITALS: BP 124/56
[2022-02-03 03:37] VITALS: BP 129/59
--- NOTE | 2022-02-03 05:04 | NUR ---
Patient has refused am labs at 0230. Should go to dialysis today, will send blood tubes.
--- NOTE | 2022-02-03 06:15 | NUR ---
Patient refused to have IV restarted, "no more needles". Diaper changed, small amount urine but foul smelling discharge present. Signs of healed decubs to coccyx.
--- NOTE | 2022-02-03 06:43 | NUR ---
Synthroid held, should have dialysis today.
[2022-02-03 07:00] VITALS: BP 117/59
[2022-02-03] MEDS: INSULIN LISPRO 300 UNITS/3 ML VIAL. SQ SCH ×2 (08:00→12:00)
[2022-02-03] MEDS ORDERED: PANT40TA77 PO (08:02)
--- NOTE | 2022-02-03 08:14 | DS ---
DATE OF DISCHARGE: 02/03/2022 PRIMARY DIAGNOSIS: Symptomatic anemia. ADDITIONAL DIAGNOSES: 1. Chest pain, felt to be noncardiac. 2. Diabetes. 3. End-stage renal disease, on dialysis. CHIEF COMPLAINT AND HISTORY OF PRESENT ILLNESS: This 77-year-old female presented to the Emergency Room with chest pain. Initial workup including troponin was negative as well as chest x-ray. She was admitted for cardiac evaluation, incidentally noted to have a hemoglobin of 6.8 on admission. SUMMARY OF STAY: The patient was admitted, transfused, had no further chest pain. Cardiac workup was negative. GI felt workup done in the recent past was enough for the anemia and symptomatic transfusions is needed. She was relatively comfortable through the stay with decent blood sugars, was receiving dialysis on the day of discharge, was found to have normal iron levels during the stay and felt ready for discharge back to the [facility] on the day of discharge. DISPOSITION: The patient is discharged back to the [facility] to resume her regular prehospital diet. ACTIVITY: As tolerated. DISCHARGE MEDICATIONS: Listed on the med rec and have been addressed. DENISSE DR: Katelynn TID: [id number]
[2022-02-03] MEDS: LEVOTHYROXINE 175 MCG TABLET PO SCH (08:46)
[2022-02-03] MEDS: POTASSIUM CHLORIDE 10 MEQ TABLET.ER. PO SCH (08:46)
[2022-02-03] MEDS: busPIRone 5 MG TABLET. PO SCH ×2 (08:46→14:00)
[2022-02-03] MEDS: CALCIUM ACETATE 667 MG CAPSULE PO SCH ×2 (08:46→12:00)
[2022-02-03] MEDS: QUEtiapine 25 MG TABLET. PO SCH (08:46)
[2022-02-03] MEDS: METOPROLOL SUCC 24HR ER 25 MG TAB.ER.24H. PO SCH (08:46)
[2022-02-03] MEDS: AMIODARONE HCL 200 MG TABLET. PO SCH (08:47)
[2022-02-03] MEDS: PANTOPRAZOLE 40 MG TABLET.DR. PO SCH (08:47)
[2022-02-03] MEDS: ISOSORBIDE MONONITRATE ER 30 MG TAB.ER.24H PO SCH (08:47)
[2022-02-03] MEDS: POLYVINYL ALCOHOL 1.4% OPHTH SOLUTION 15ML BOTTLE. OU SCH (08:47)
[2022-02-03] MEDS: DONEPEZIL HCL 10 MG TABLET. PO SCH (08:51)
[2022-02-03] MEDS: HYDROCORTISONE 1% LOTION BOTTLE. TP SCH (09:00)
--- NOTE | 2022-02-03 09:27 | PDOC ---
Date of Service: DATE: 02/03/22 TIME: 09:23 Objective: Objective: Has DC orders to return to LTC, rapid COVID negative. Vital Signs: Vital Signs Date Time Temp Pulse Resp B/P (MAP) Pulse Ox O2 Delivery O2 Flow Rate FiO2 02/03/22 08:47 60 117/59 02/03/22 08:00 Room Air 2.0 02/03/22 07:00 98.7 18 100 98.7 Labs: Laboratory Tests Test 02/02/22 11:16 02/02/22 16:08 02/02/22 20:54 02/03/22 07:43 Glucose (Fingerstick) 239 mg/dL (70-99) 124 mg/dL (70-99) 164 mg/dL (70-99) 154 mg/dL (70-99) PE: GEN: NAD LUNGS: on room air ABD: non-distended NEURO/PSYCH: sleeping, did not awaken A/P: Chronic anemia - multi-factorial A Fib on Eliquis, ESRD, dementia -- Dc per primary. 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 Justicifation of Admission Dx: Justifications for Admission: Justification of Admission Dx: Yes Acute Renal Failure: Serum Cr > 4mg/dL TANG SERRA Feb 03, 2022 09:27
--- NOTE | 2022-02-03 10:21 | PDOC ---
DATE OF SERVICE DATE: 02/03/22 TIME: 10:18 SUBJECTIVE ROS stable , No complaints Plan to dc after dialysis today per nursing OBJECTIVE Vital Signs Vital Signs Date Time Temp Pulse Resp B/P (MAP) Pulse Ox O2 Delivery O2 Flow Rate FiO2 02/03/22 08:47 60 117/59 02/03/22 08:00 Room Air 2.0 02/03/22 07:00 98.7 18 100 98.7 I & 0 Intake and Output 02/03/22 07:00 Intake Total 120 ml Output Total 0 ml Balance 120 ml Intake Oral 120 ml Other 0 ml Output Urine Total 0 ml PHYSICAL EXAM Physical Exam General NAD HEEN OM moist Neck Supple Lungs CTA B, Non labored CV RRR Abd Soft, NT , BS + Ext No LE edema No meza Neuro Grossly Normal Derm No Rash DIAGNOSIS/ASSESSMENT DIAGNOSIS/ASSESSMENT Assessment & Plan ESRD on HD at [facility] under Dr Metzger TTS ,Dialysis today. Discussed treatment plan with Genevieve Anemia- Hgb POA <7 , S/P PRBC. Similar in the past as well Tsats at goal. Defer to PCP /GI . Continue Retacrit Hx of Bipolar/Attention seeking behavior per Dr. Metzger DM- Uncontrolled. Primary managing HTN- BP stable Hx of COVID 19 positive per NH report Discharge per primary COMMENT/RELEVANT DATA Meds Current Medications Medications (Trade) Dose Ordered Sig/Angeles Start Time Stop Time Status Last Admin Dose Admin Acetaminophen (Tylenol) 500 mg PRN Q6HRS PRN 01/31/22 20:15 Amiodarone HCl (Cordarone) 100 mg DAILY 02/01/22 09:00 02/03/22 08:47 100 MG Apixaban (Eliquis) 2.5 mg BID 01/31/22 21:00 02/02/22 14:28 DC 02/01/22 20:35 2.5 MG Atorvastatin Calcium (Lipitor) 20 mg HS 01/31/22 21:00 02/02/22 21:30 20 MG Buspirone HCl (Buspar) 5 mg TID 01/31/22 21:00 02/03/22 08:46 5 MG Calcium Acetate (Phoslo) 667 mg TIDWMEALS 02/01/22 08:00 02/03/22 08:46 667 MG Calcium Carbonate/ Glycine (Tums) 500 mg QHS 01/31/22 21:00 02/02/22 21:30 500 MG Docusate Sodium (Colace) 100 mg PRN DAILY PRN 01/31/22 20:15 Donepezil HCl (Aricept) 10 mg DAILY 02/01/22 09:00 02/03/22 08:51 10 MG Epoetin Cameron-epbx (RETACRIT for ESRD PTS) 10,000 unit MoWeFr@2100 02/02/22 21:00 02/02/22 21:39 10,000 UNIT Ergocalciferol (Vitamin D2) 50,000 unit Th@0900 02/05/22 09:00 Glycerin/ Hypromellose/ Polyethylene (Artificial Tears) 1 drop BID 01/31/22 21:00 02/03/22 08:47 1 DROP Hydrocortisone (Cortizone-10) 1 alex BID 01/31/22 21:00 02/02/22 22:06 1 ALEX Insulin Glargine (Lantus Syringe) 5 unit QHS 01/31/22 21:00 02/02/22 21:40 5 UNIT Insulin Human Lispro (HumaLOG) 4 units TIDWMEALS 02/01/22 08:00 02/02/22 11:21 4 UNITS Isosorbide Mononitrate (Imdur) 30 mg DAILY 02/01/22 09:00 02/03/22 08:47 30 MG Levothyroxine Sodium (Synthroid) 175 mcg DAILY06 02/01/22 06:00 02/03/22 08:46 175 MCG Metoprolol Succinate (Toprol Xl) 25 mg DAILY 02/01/22 09:00 02/03/22 08:46 25 MG Non-Formulary Medication (Melatonin ) 2 tab QHS 01/31/22 21:00 UNV Nystatin (Mycostatin) 1 alex PRN BID PRN 01/31/22 20:45 Ondansetron HCl (Zofran Odt) 4 mg PRN Q6HRS PRN 01/31/22 20:15 Pantoprazole Sodium (Protonix) 40 mg DAILYAC 02/01/22 10:00 02/03/22 08:47 40 MG Potassium Chloride (Klor-Con) 10 meq DAILY 02/01/22 09:00 02/03/22 08:46 10 MEQ Quetiapine Fumarate (SEROquel) 50 mg BID 01/31/22 21:00 02/03/22 08:46 50 MG Tramadol HCl (Ultram) 50 mg PRN Q8HRS PRN 01/31/22 20:15 Trazodone HCl (Desyrel) 50 mg PRN QHS PRN 01/31/22 20:15 02/02/22 21:42 50 MG Triamcinolone Acetonide (Kenalog 0.1%) 1 alex PRN BID PRN 01/31/22 20:45 Lab Laboratory Tests Test 02/02/22 11:16 02/02/22 16:08 02/02/22 20:54 02/03/22 07:43 Glucose (Fingerstick) 239 mg/dL (70-99) 124 mg/dL (70-99) 164 mg/dL (70-99) 154 mg/dL (70-99) Test 02/03/22 08:40 SARS-CoV-2 Antigen (Rapid) Negative (NEGATIVE) Results All relevant outside records, renal labs, imaging studies, telemetry/EKG's were reviewed. Justicifation of Admission Dx: Justifications for Admission: Justification of Admission Dx: Yes Acute Renal Failure: Serum Cr > 4mg/dL JUAN CARLOS SONI MD Feb 03, 2022 10:21
[2022-02-03 11:00] VITALS: BP 131/78
--- NOTE | 2022-02-03 11:35 | NUR ---
SS following up with discharge planning. SS reviewed pt chart and discussed with pt RN. Pt is currently requiring oxygen at two liters nasal canula. COVID19 negative. Pt has outpatient dialysis at [facility], Wednesday, , and Wednesday. Pt is [facility] resident from [place], ; fax [phone]. Discharge orders received and sent to facility. Pt will discharge today and return to [place] at [address] [place] to provide transportation. Pt and pt's RN notified.
[2022-02-03] MEDS ORDERED: IV NORMAL SALINE 1000ML BAG 1,000 ML IV PRN ×2 (12:15)
[2022-02-03] MEDS ORDERED: DIALYSIS PATIENT. MC PRN ×2 (12:15)
[2022-02-03] MEDS ORDERED: LIDOCAINE 1% PF 2 ML VIAL. INJ PRN (12:15)
[2022-02-03 13:11] LABS: CALCIUM 8.5 mg/dL (8.5-10.1); CREATININE 8.6 mg/dL (0.6-1.0); GFR 4.5; POTASSIUM 4.3 mmol/L (3.5-5.1)
--- NOTE | 2022-02-03 15:50 | PDOC ---
CARDIO Progress Notes Date and Time Date of Service 02/03/22 Time of Evaluation 1500 Subjective Subjective: No Chest Pain, No shortness of breath, No Palpitations Vitals Vitals Vital Signs Date Time Temp Pulse Resp B/P (MAP) Pulse Ox O2 Delivery O2 Flow Rate FiO2 02/03/22 11:00 98.2 72 18 131/78 (95) 98 Nasal Cannula 2.0 98.2 Weight Weight [ ] Input and Output Intake and Output Intake and Output0 02/03/22 07:00 Intake Total 120 ml Output Total 0 ml Balance 120 ml Intake Oral 120 ml Other 0 ml Output Urine Total 0 ml Laboratory Labs Laboratory Tests Test 02/02/22 16:08 02/02/22 20:54 02/03/22 07:43 02/03/22 08:40 Glucose (Fingerstick) 124 mg/dL (70-99) 164 mg/dL (70-99) 154 mg/dL (70-99) SARS-CoV-2 Antigen (Rapid) Negative (NEGATIVE) Test 02/03/22 11:41 02/03/22 12:28 Glucose (Fingerstick) 162 mg/dL (70-99) Sodium Level 140 mmol/L (136-145) Potassium Level 4.3 mmol/L (3.5-5.1) Chloride Level 104 mmol/L (98-107) Carbon Dioxide Level 26 mmol/L (21-32) Anion Gap 10 (6-14) Blood Urea Nitrogen 35 mg/dL (7-20) Creatinine 8.6 mg/dL (0.6-1.0) Estimated GFR (Cockcroft-Gault) 4.5 Glucose Level 164 mg/dL (70-99) Calcium Level 8.5 mg/dL (8.5-10.1) Physical Exam HEENT: Neck Supple W Full Motion Chest: Symmetric LUNGS: Clear to Auscultation Heart: RRR Abdomen: Soft N/T Extremities: No Edema Neurology: alert, follow commands Assessment Assessment 1. Chest pain, atypical. AMI ruled out. No EKG evidence of acute ischemia. Lexiscan MPI stress test on 08/05/2020 showed no evidence of ischemia or infarct with a normal ejection fraction. 2. Anemia of chronic disease; s/p transfusion 3. Chronic diastolic CHF; compensated 4. H/o CMP; most recent echo 02/02 shows LV recovery with an EF of 60-65% 5. PAFIB: maintaining SR with amiodarone. s/p Watchman 10/06/21. OAC can be discontinued from an AFIB standpoint 6. End-stage renal disease on HD 7. HTN: controlled 8. Hyperlipidemia 9. Diabetes, II 10. Moderate 11. Hx of PUD/high risk for falls 12. Dementia Recommendations Continue amiodarone for rhythm maintenance Metoprolol for rate control Secondary prevention measures. Consider addition of Plavix therapy. Fluid off loading per HD Supportive care Follow up in our office with Dr. Lockhart as scheduled Justicifation of Admission Dx: Justifications for Admission: Justification of Admission Dx: Yes Acute Renal Failure: Serum Cr > 4mg/dL YOHAN DEE APRN Feb 03, 2022 15:50
--- NOTE | 2022-02-03 16:09 | NUR ---
PATIENT DISCHARGED TO [facility]. REPORT GIVEN TO NURSING STAFF. PIV AND HEART MONITOR REMOVED. ESCORTED PATIENT OF UNIT PER WHEEL CHAIR BY TRANSPORTATION FROM THE [facility].
[2022-02-05] MEDS ORDERED: ERGOCALCIFEROL (VITAMIN D2) 50,000 UNIT CAPSULE. PO SCH (09:00)
== END 2022-02-03 16:13 | DRG 391 ==
LOC: ER 13:30 → 1 WEST ICU 16:00 → 6 SOUTH 02-02 08:32
PROVIDERS: ADMIT Family Medicine; ATTEND Family Medicine
PROC: 30233N1 Transfusion of Nonautologous Red Blood Cells into Peripheral Vein, Percutaneous Approach (ICD-10-PCS; 2022-01-31)
PROC: 5A1D70Z Performance of Urinary Filtration, Intermittent, Less than 6 Hours Per Day (ICD-10-PCS; principal; 2022-02-03)
DX: K21.9 Gastro-esophageal reflux disease without esophagitis (principal); N18.6 End stage renal disease; I13.2 Hypertensive heart and chronic kidney disease with heart failure and with stage 5 chronic kidney disease, or end stage renal disease; I50.32 Chronic diastolic (congestive) heart failure; D63.8 Anemia in other chronic diseases classified elsewhere; E03.9 Hypothyroidism, unspecified; E11.22 Type 2 diabetes mellitus with diabetic chronic kidney disease; E78.00 Pure hypercholesterolemia, unspecified; E78.5 Hyperlipidemia, unspecified; F02.80 Dementia in other diseases classified elsewhere, unspecified severity, without behavioral disturbance, psychotic disturbance, mood disturbance, and anxiety; F31.9 Bipolar disorder, unspecified; G30.9 Alzheimer's disease, unspecified; I27.20 Pulmonary hypertension, unspecified; I48.0 Paroxysmal atrial fibrillation; E21.3 Hyperparathyroidism, unspecified; F41.9 Anxiety disorder, unspecified; E11.40 Type 2 diabetes mellitus with diabetic neuropathy, unspecified; K57.90 Diverticulosis of intestine, part unspecified, without perforation or abscess without bleeding; M19.90 Unspecified osteoarthritis, unspecified site; Z88.0 Allergy status to penicillin; Z20.822 Contact with and (suspected) exposure to COVID-19; Z79.01 Long term (current) use of anticoagulants; Z82.0 Family history of epilepsy and other diseases of the nervous system; Z87.11 Personal history of peptic ulcer disease; Z90.710 Acquired absence of both cervix and uterus; Z99.2 Dependence on renal dialysis
CPT/HCPCS: 36415; 36430; 71045; 80048; 80053; 82962; 83540; 83550; 83690; 83735; 83880; 84484; 85025; 85045; 85610; 85730; 86850; 86870; 86900; 86901; 86902; 86922; 87426; J1815; J3490; P9016; 99285-25; G0378

== ENCOUNTER 2022-04-01 14:40 | Emergency (ER) | payer MEDICARE, OTHER ==
[~2022-04-01] VITALS: Ht 162.6 cm; Wt 63.3 kg
[2022-04-01] MEDS ORDERED: IV NORMAL SALINE 500ML BAG 500 ML IV ONE (15:15)
[2022-04-01 15:21] LABS: BASO % 1 % (0-3); EOS # 0.2 x10^3/uL (0.0-0.7); EOS % 3 % (0-3); HEMATOCRIT 36.3 % (36.0-47.0); HEMOGLOBIN 11.7 g/dL (12.0-15.5); LYMPH # 1.2 x10^3/uL (1.0-4.8); LYMPH % 22 % (24-48); MEAN CORPUSCULAR HEMOGLOBIN 31 pg (25-35); MEAN CORPUSCULAR HGB CONC 32 g/dL (31-37); MEAN CORPUSCULAR VOLUME 96 fL (79-100); MONO # 0.4 x10^3/uL (0.0-1.1); MONO % 6 % (0-9); NEUT # 3.9 x10^3/uL (1.8-7.7); NEUT % 68 % (31-73); PLATELET COUNT 188 x10^3/uL (140-400); RED BLOOD COUNT 3.79 x10^6/uL (3.50-5.40); RED CELL DISTRIBUTION WIDTH 18.5 % (11.5-14.5); WHITE BLOOD COUNT 5.7 x10^3/uL (4.0-11.0)
[2022-04-01 15:42] LABS: CALCIUM 8.5 mg/dL (8.5-10.1); CREATININE 6.2 mg/dL (0.6-1.0); GFR 6.6; POTASSIUM 4.5 mmol/L (3.5-5.1)
[2022-04-01 15:50] LABS: ALBUMIN 2.9 g/dL (3.4-5.0); ALBUMIN/GLOBULIN RATIO 0.8 (1.0-1.7); TOTAL BILIRUBIN 0.4 mg/dL (0.2-1.0); TOTAL PROTEIN 6.6 g/dL (6.4-8.2)
--- NOTE | 2022-04-01 16:00 | RAD ---
XR CHEST 1V History: Low blood pressure Comparison: 01/31/2022 Technique: Portable AP radiograph of the chest. Findings: There is an intracardiac pacemaker device. Atrial appendage occlusion device. Left axillary stents. Lungs are adequately inflated. No focal airspace consolidation, pleural effusion or pneumothorax. The cardiomediastinal silhouette is normal in size. Pulmonary vasculature is within normal limits. No ac gambell osseous abnormality. Soft tissues are unremarkable. Impression: 1. No acute cardiopulmonary process. Electronically signed by: Lukas Giang MD (04/01/2022 3:31 PM) [id number]
[2022-04-01 17:21] LABS: BARBITURATES NEG (NEG); BENZODIAZEPINES NEG (NEG); CANNABINOIDS NEG (NEG); COCAINE NEG (NEG); METHADONE NEG (NEG); OPIATES NEG (NEG); PHENCYCLIDINE NEG (NEG)
[2022-04-01 17:28] VITALS: BP 98/55
[2022-04-01 17:28] LABS: AMPHETAMINE/METHAMPHETAMINE NEG (NEG)
--- NOTE | 2022-04-01 17:30 | PHYS DOC ---
Past Medical History Past Medical History: Anemia, Anxiety, Arthritis, Bipolar, CHF, Dementia, Depression, Diabetes-Type II, GERD, High Cholesterol, Hypertension, Hypothyroid, Renal Failure Additional Past Medical Histor: major depressive disorder, Sick sinus synd, alzheimer's, Past Surgical History: No Surgical History Additional Past Surgical Histo: DIALYSIS SHUNT/FISTULA LEFT SIDE Smoking Status: Never Smoker Alcohol Use: None Drug Use: None General Adult EDM: Chief Complaint: HYPOTENSION HPI: HPI: Patient is a 77 year old female with history of ESRD presents with low blood pressure from detention. Patient does not typically take all of her medications, she is noncompliant with her medications, today she took all of her medications. After which she walked around the detention premises, she went to go lie down, she was found to be very sleepy, blood pressure was low about 80/50. Patient presented and blood pressure was normal and she was acting normal. Otherwise she has been stable while in the emergency department. She was given 300 cc normal saline bolus while being transported to the emergency department. Review of Systems: Review of Systems: Constitutional: Denies fever or chills. [] Eyes: Denies change in visual acuity. [] HENT: Denies nasal congestion or sore throat. [] Respiratory: Denies cough or shortness of breath. [] Cardiovascular: Denies chest pain or edema. [] GI: Denies abdominal pain, nausea, vomiting, bloody stools or diarrhea. [] : Denies dysuria. [] Musculoskeletal: Denies back pain or joint pain. [] Integument: Denies rash. [] Neurologic: Denies headache, focal weakness or sensory changes. [] Heart Score: C/O Chest Pain: No Risk Factors: Risk Factors: DM, Current or recent (<one month) smoker, HTN, HLP, family history of CAD, obesity. Risk Scores: Score 0 - 3: 2.5% MACE over next 6 weeks - Discharge Home Score 4 - 6: 20.3% MACE over next 6 weeks - Admit for Clinical Observation Score 7 - 10: 72.7% MACE over next 6 weeks - Early Invasive Strategies Current Medications: Current Medications Medications (Trade) Dose Ordered Sig/Angeles Start Time Stop Time Status Last Admin Dose Admin Sodium Chloride 500 ml @ 500 mls/hr 1X ONCE 04/01/22 15:15 04/01/22 16:14 DC 5/18/22 15:15 500 MLS/HR Allergies: Allergies: Allergies Coded Allergies Type Severity Reaction Last Updated Verified amoxicillin Allergy Intermediate 01/20/22 Yes clavulanic acid Allergy Intermediate 01/20/22 Yes Physical Exam: PE: Constitutional: Well developed, well nourished, no acute distress, non-toxic appearance. [] HENT: Normocephalic, atraumatic, bilateral external ears normal, oropharynx moist, no oral exudates, nose normal. [] Eyes: PERRLA, EOMI, conjunctiva normal, no discharge. [] Neck: Normal range of motion, no tenderness, supple, no stridor. [] Cardiovascular:Heart rate regular rhythm, no murmur [] Lungs & Thorax: Bilateral breath sounds clear to auscultation [] Abdomen: Bowel sounds normal, soft, no tenderness, no masses, no pulsatile masses. [] Skin: Warm, dry, no erythema, no rash. [] Back: No tenderness, no CVA tenderness. [] Extremities: No tenderness, no cyanosis, no clubbing, ROM intact, no edema. [] Neurologic: Alert and oriented X 3, normal motor function, normal sensory function, no focal deficits noted. [] Psychologic: Affect normal, judgement normal, mood normal. [] Current Patient Data: Labs: Laboratory Tests Test 04/01/22 15:00 White Blood Count 5.7 x10^3/uL (4.0-11.0) Red Blood Count 3.79 x10^6/uL (3.50-5.40) Hemoglobin 11.7 g/dL (12.0-15.5) L Hematocrit 36.3 % (36.0-47.0) Mean Corpuscular Volume 96 fL (79-100) Mean Corpuscular Hemoglobin 31 pg (25-35) Mean Corpuscular Hemoglobin Concent 32 g/dL (31-37) Red Cell Distribution Width 18.5 % (11.5-14.5) H Platelet Count 188 x10^3/uL (140-400) Neutrophils (%) (Auto) 68 % (31-73) Lymphocytes (%) (Auto) 22 % (24-48) L Monocytes (%) (Auto) 6 % (0-9) Eosinophils (%) (Auto) 3 % (0-3) Basophils (%) (Auto) 1 % (0-3) Neutrophils # (Auto) 3.9 x10^3/uL (1.8-7.7) Lymphocytes # (Auto) 1.2 x10^3/uL (1.0-4.8) Monocytes # (Auto) 0.4 x10^3/uL (0.0-1.1) Eosinophils # (Auto) 0.2 x10^3/uL (0.0-0.7) Basophils # (Auto) 0.0 x10^3/uL (0.0-0.2) Sodium Level 140 mmol/L (136-145) Potassium Level 4.5 mmol/L (3.5-5.1) Chloride Level 99 mmol/L (98-107) Carbon Dioxide Level 24 mmol/L (21-32) Anion Gap 17 (6-14) H Blood Urea Nitrogen 39 mg/dL (7-20) H Creatinine 6.2 mg/dL (0.6-1.0) H Estimated GFR (Cockcroft-Gault) 6.6 BUN/Creatinine Ratio 6 (6-20) Glucose Level 165 mg/dL (70-99) H Calcium Level 8.5 mg/dL (8.5-10.1) Total Bilirubin 0.4 mg/dL (0.2-1.0) Aspartate Amino Transferase (AST) 19 U/L (15-37) Alanine Aminotransferase (ALT) 17 U/L (14-59) Alkaline Phosphatase 127 U/L (46-116) H Creatine Kinase 39 U/L (26-192) Troponin I High Sensitivity 17 ng/L (4-50) Total Protein 6.6 g/dL (6.4-8.2) Albumin 2.9 g/dL (3.4-5.0) L Albumin/Globulin Ratio 0.8 (1.0-1.7) L Lipase 605 U/L (73-393) H Laboratory Tests 04/01/22 15:00 Laboratory Tests 04/01/22 15:00 Vital Signs: Vital Signs Date Time Temp Pulse Resp B/P (MAP) Pulse Ox O2 Delivery O2 Flow Rate FiO2 04/01/22 16:58 69 16 126/58 (80) 100 Room Air 04/01/22 14:50 97.8 97.8 EKG: EKG: Normal sinus rhythm, prolonged QT [] Radiology/Procedures: Radiology/Procedures: No acute changes on chest x-ray [] Impression: Hypotension, transient secondary to medications Course & Med Decision Making: Course & Med Decision Making Pertinent Labs and Imaging studies reviewed. (See chart for details) 77-year-old female presents with hypotension seen at detention, presented with normal blood pressure and acting normally. Spoke with the son who confirms that this is happened several times in the past, it seems to be happening more frequently in the near past. Patient has not followed up with mathematics professor yet. May need to change medications. Patient is noncompliant with medications, but took all her medications today which is not typical for her. Patient likely had a reaction to starting back on her medications, blood pressure was also not taken prior to administration of medications, these are all complicating factors. I discussed this with the son, and the patient. They agree with plan of action to discharge back to detention. She is discharged in good and stable condition. ER precautions given, all questions answered. Patient hemodynamically stable time of discharge, very good condition. Dragon Disclaimer: Dragon Disclaimer: This electronic medical record was generated, in whole or in part, using a voice recognition dictation system. Departure Departure Impression: Primary Impression: Volume depletion Additional Impression: CRF (chronic renal failure) Disposition: 01 HOME / SELF CARE / HOMELESS Condition: GOOD Referrals: HOUSTON SILVER MD (PCP) Patient Instructions: Hypotension, [id number] Additional Instructions: Follow-up with your mathematics professor in the next week or 2 Continue to eat and drink at your recommended levels, try not to skip meals if it is not recommended. KAYCEE MCCRAY MD April 01, 2022 17:30
[2022-04-01 17:31] LABS: BACTERIA,URINE MODERATE /HPF (0-FEW); WBC,URINE FIELD OBSCURED /HPF (0-4)
--- NOTE | 2022-04-02 14:00 | EKG ---
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
== END 2022-04-01 18:27 | disposition home or self-care (01) ==
LOC: ER 14:40
DX: E86.9 Volume depletion, unspecified (principal); E11.22 Type 2 diabetes mellitus with diabetic chronic kidney disease; I13.2 Hypertensive heart and chronic kidney disease with heart failure and with stage 5 chronic kidney disease, or end stage renal disease; N18.6 End stage renal disease; I50.9 Heart failure, unspecified; Z99.2 Dependence on renal dialysis; K21.9 Gastro-esophageal reflux disease without esophagitis; E78.00 Pure hypercholesterolemia, unspecified; F31.9 Bipolar disorder, unspecified; G30.9 Alzheimer's disease, unspecified; F02.80 Dementia in other diseases classified elsewhere, unspecified severity, without behavioral disturbance, psychotic disturbance, mood disturbance, and anxiety; Z88.1 Allergy status to other antibiotic agents; Z88.8 Allergy status to other drugs, medicaments and biological substances
CPT/HCPCS: 36415; 71045; 80053; 80307; 81001; 82550; 83690; 84484; 85025; 87086; 93005; 99285; J7040